=== PATIENT | male | born 1965 | race Caucasian/White ===

== ENCOUNTER 2016-04-22 01:22 | Inpatient (IN) | payer OTHER ==
[2016-04-22] VITALS (7 sets, daily range): BP systolic 82–119; BP diastolic 40–66
[~2016-04-22] VITALS: Ht 177.8 cm; Wt 129.3 kg
[~2016-04-22 01:22] MED LIST: ANTIVERT25 MG PO; ATORVASTATIN CA40 MG PO; AUGMENTIN 875-1 EACH PO; CHLORDIAZEPOXID25 M1 PO; CIPROFLOXACIN500 MG PO; COUMADIN 5 MG TA5 MG PO; DOCUSATE SODIU100 MG PO; FLEXERIL10 MG PO; FLUOXETINE HYDR40 MG PO; FOLIC ACID 1 MG PO; GLUCOSAMINE & C1 CAP PO; GOOD SENSE ASP325 MG PO; IBUPROFEN800 M1 PO; LISINOPRIL20 MG PO; LOPRESSOR 25MG25 MG PO; MEDROL DOSEPAK1 PAC PO; METOPROLOL TART50 MG PO; METRONIDAZOLE500 MG PO; NATURAL IRON65 MG PO; OMEPRAZOLE D/R20 MG PO; OXAZEPAM15 MG PO; OXYCONTIN20 MG PO; PERCOCET 325 MG1 TA2 PO; PERCOCET 325 MG1 TAB PO; TOPROL XL25 MG PO; TRANSDERM-SCOP1 EACH TOP; Theragran Vitamins PO; VALIUM 10 MG. T10 MG PO; VALIUM5 M2 PO; VICODIN5-300 PO; VITAB121000 PO; VITAMIN B1100 MG PO; ZOFRAN ODT4 M1 PO
--- NOTE | 2016-04-22 01:28 | ED GI/GU/ABDOMINAL COMPLAINT ---
History of Present Illness General Chief Complaint: Abdominal Pain/Flank Pain Stated Complaint: ABD PAIN Source: patient Exam Limitations: no limitations Vital Signs & Intake/Output Vital Signs & Intake/Output Vital Signs Date Time Temp Pulse Resp B/P Pulse O2 O2 Flow FiO2 Ox Delivery Rate 04/22 0359 100.5 96 20 177/107 95 Nasal 2.0L Cannula 04/22 0245 97 Room Air 04/22 0123 99.3 95 20 156/100 95 Room Air Allergies Coded Allergies: NO KNOWN ALLERGIES (08/27/12) Reconcile Medications Atorvastatin Calcium (Lipitor) 40 MG TAB 1 TAB PO 1700 HYPERLIPIDEMIA Chlordiazepoxide Hydrochlori (Chlordiazepoxide HCl) 25 MG CAP 1 CAP PO BID MENTAL HEALTH (Reported) Chondroitin Sulf/Glucosamine (Glucosamine & Chondroitin) 1 CAP CAP 1 CAP PO DAILY SUPPLEMENT (Reported) Cyanocobalamin (Vitamin B-12) (Unknown Strength) TAB (Unknown Dose) PO DAILY SUPPLEMENT (Reported) FERROUS SULFATE (IRON) (Unknown Strength) TAB (Unknown Dose) PO DAILY SUPPLEMENT (Reported) FLUOXETINE HCL (Fluoxetine Hydrochloride) 40 MG CAP 1 CAP PO DAILY MENTAL HEALTH (Reported) Folic Acid 1 MG TAB 1 MG PO DAILY SUPPLEMENT Lisinopril 20 MG TABLET 1 TAB PO DAILY BP (Reported) Metoprolol Succinate (Toprol XL) [address] 1 TAB PO DAILY BP (Reported) Ondansetron (Zofran Odt) 4 MG TAB.RAPDIS 1 TAB PO 4 TIMES/DAY PRN NAUSEA [Theragran Vitamins] 1 TAB PO DAILY Thiamine (Vitamin B1) 100 MG TAB 1 TAB PO DAILY SUPPLEMENT Triage Nurses Notes Reviewed? yes Onset: Gradual Duration: day(s):, getting worse Timing: recent history Quality/Severity: cramping Location: generalized abdomen Radiation: no radiation Activities at Onset: drinking alcohol Prior Abdominal Problems: none Modifying Factors: Improves With: rest. Worsens With: vomiting. Associated Symptoms: abdominal pain, weakness HPI: 50 yo gentleman h/o alcohol abuse, presents with increased abdominal girth, associated with abdominal pain for the past several days, getting worse today. He notes occasional emesis and mild nausea. "I lost my job, and so I've been doing nothing but drinking alcohol for the past several days." He notes no history of alcohol related seizures. He is otherwise well. Past History Travel History Traveled to [place] past 21 day No Medical History Any Pertinent Medical History? 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 No Review of Systems Review of Systems Constitutional: Reports: no symptoms. EENTM: Reports: no symptoms. Respiratory: Reports: no symptoms. Cardiovascular: Reports: no symptoms. GI: Reports: no symptoms. Genitourinary: Reports: no symptoms. Musculoskeletal: Reports: no symptoms. Skin: Reports: no symptoms. Neurological/Psychological: Reports: no symptoms. Hematologic/Endocrine: Reports: no symptoms. Immunologic/Allergic: Reports: no symptoms. All Other Systems: Reviewed and Negative Physical Exam Physical Exam General Appearance: well developed/nourished, mild distress, moderate distress Head: atraumatic, normal appearance Eyes: Bilateral: normal appearance, PERRL, EOMI. Ears, Nose, Throat, Mouth: hearing grossly normal Neck: normal inspection, supple, full range of motion, normal alignment Respiratory: normal breath sounds, chest non-tender, no respiratory distress, quiet respiration, lungs clear Cardiovascular: regular rate/rhythm Gastrointestinal: normal bowel sounds, soft, distended abdomen, no focal tenderness. Back: normal inspection, normal range of motion Extremities: normal range of motion Neurologic/Psych: no motor/sensory deficits, awake, alert, oriented x 3 Skin: intact, normal color, warm/dry Core Measures Severe Sepsis Present: Yes BC x2: Yes Lactic Acid x2: Yes IV ABX Broad Spectrum: Yes NS/LR Started: Yes Septic Shock Present: No Progress Differential Diagnosis: alcohol related liver failure vs cancer vs other. Plan of Care: Orders Procedure Date/time Status Nothing by Mouth 04/22 B Active Add-on Test (ER Only) 04/22 547 Active NGT 04/22 545 Active Ann, Insertion/Removal/Asses 04/22 545 Active CIWA 04/22 545 Active CULTURE,URINE 04/22 545 Active LACTIC ACID 04/22 0429 Active BLOOD CULTURE 04/22 0345 Active Add-on Test (ER Only) 04/22 015 Active AMMONIA LEVEL 04/22 015 Complete Saline Lock 04/22 015 Active Misc Message 04/22 154 Active Vital Signs 04/22 154 Active PARTIAL THROMBOPLASTIN TIME 04/22 015 Complete PROTHROMBIN TIME 04/22 154 Complete Code Status 04/22 154 Active Admit to inpatient 04/22 153 Active Intake & Output 04/22 130 Active TROPONIN LEVEL 04/22 130 Complete LACTIC ACID 04/22 130 Complete EKG 04/22 130 Active CULTURE,BODY FLUID 04/22 129 Active BODY FLUID TOTAL PROTEIN 04/22 129 Complete BODY FLUID CELL COUNT 04/22 129 Complete BODY FLUID ALBUMIN 04/22 129 Complete URINE DRUG SCREEN FOR ER ONLY 04/22 128 Active URINALYSIS 04/22 128 Active LIPASE 04/22 128 Complete HEPATIC FUNCTION PANEL 04/22 128 Complete ETHANOL 04/22 128 Complete CBC WITHOUT DIFFERENTIAL 04/22 128 Complete BASIC METABOLIC PANEL 04/22 128 Complete AMYLASE 04/22 128 Complete Current Medications Sig/Roberto Start time Last Medication Dose Stop Time Status Admin Dextrose 25 GM ONCE ONE 04/22 06 UNVr (Dextrose 50%) 04/22 06 Insulin Human Regular 10 UNITS ONCE ONE 04/22 06 UNVr (Novolin R Inj) 04/22 06 Cyanocobalamin/ 1 BAG ONCE ONE 04/22 0545 UNVr Thiamine/Pyridoxine 04/22 1344 (Vitamin in I.V.) Sodium Chloride 1,000 ML (Normal Saline 0.9%) Laboratory Tests 04/22/16 0235: Ammonia 24 04/22/16 0235: Anion Gap 15, Estimated GFR > 60, BUN/Creatinine Ratio 20.0, Glucose 148 H, Lactic Acid 3.3 H, Calcium 8.7, Total Bilirubin 4.2 H, Direct Bilirubin 2.5 H , AST 112 H, ALT 55, Alkaline Phosphatase 200 H, Troponin I 0.05, Total Protein 6.7, Albumin 3.2 L, Amylase 94, Lipase 405 H, PT 17.3 H, INR 1.66 H, APTT 34, Serum Alcohol 86.0 04/22/16 0200: Fluid WBC 9504 H, Fld Mesothelial Cells 4, Fld Total RBCs Counted 2156 H 04/22/16 0200: % Normal PMNs 96, Fluid Total Protein < 2.0, Fluid Albumin < 1.0 04/22/16 0130: Troponin I Cancelled, CBC w Diff NO MAN DIFF REQ, RBC 3.91 L, MCV 97.2 H, MCH 32.5 H, RDW 15.9 H, MPV 8.8, Gran % 82.7 H, Lymphocytes % 7.7 L, Monocytes % 9.4 H, Eosinophils % 0, Basophils % 0.2, PUBS MCHC 33.4, Absolute Granulocytes 6.4, Absolute Lymphocytes 0.6 L, Absolute Monocytes 0.7 H, Absolute Eosinophils 0, Absolute Basophils 0 Microbiology 04/22 545 URINE ROUT: Urine Culture - ORD 04/22 450 BLOOD: Blood Culture - RECD 04/22 435 BLOOD: Blood Culture - RECD 04/22 200 BODY FLUID: Body Fluid Culture - RECD 04/22 200 BODY FLUID: Gram Stain - RECD Diagnostic Imaging: Viewed by Me: Radiology Read, CT Scan. Discussed w/RAD: Radiology Read, CT Scan. Radiology Impression: abd/pelvic ct... free air and ascites noted... full report below CXR Impression: no acute abnormality, no infiltrates, normal size heart, normal mediastinum Initial ED EKG: normal axis, normal intervals, normal p-waves, normal QRS complex Comments: PATIENT: CECILIA BABCOCK PRESENT AGE: 50 PATIENT ACCOUNT NO: [id number] : 66 LOCATION: [facility] ORDERING PHYSICIAN: HOLLEY GROVER MD SERVICE DATE: 04/22/16 EXAM TYPE: CAT - CT ABD & PELVIS W/O IV CONTRAS EXAMINATION: CT ABDOMEN AND PELVIS WITHOUT CONTRAST CLINICAL INFORMATION: Abdominal pain. COMPARISON: 01/25/2014. TECHNIQUE: Contiguous axial thin section helical images of the abdomen and pelvis were performed without oral or IV contrast. The data set was reformatted in the coronal and sagittal planes and reviewed on an independent workstation. DLP: 1371 mGy-cm. FINDINGS: The visualized lung bases are clear. The visualized portions of the heart are unremarkable. The liver is of normal size and diffusely heterogeneous attenuation without focal lesions nor intrahepatic biliary ductal dilation. A normal gallbladder is identified. There is no wall thickening or discernible pericholecystic fluid. The spleen, pancreas, adrenal glands are unremarkable. Both kidneys are of normal size and attenuation without hydronephrosis or nephrolithiasis. There is a moderate amount of free fluid within the abdomen. There is neither mesenteric nor retroperitoneal lymphadenopathy. There is extensive pneumoperitoneum. There are numerous sigmoid diverticula without evidence of diverticulitis. Otherwise, unremarkable unopacified loops of small and large bowel are identified. There is a large amount of pelvic free fluid. The urinary bladder is unremarkable. There is neither pelvic nor inguinal lymphadenopathy. Bone windows: Neither sclerotic nor lytic bone lesions are identified. A left hip prosthesis is intact. IMPRESSION: Pneumoperitoneum. There is sigmoid diverticulosis without evidence of diverticulitis. An etiology for the pneumoperitoneum is not demonstrable. Moderate amount of ascites throughout the abdomen. Large amount of pelvic free fluid. Liver is diffusely heterogeneous attenuation without focal lesions demonstrable. DICTATED BY: RAFAEL BONE MD DATE/TIME DICTATED:04/22/16336 INDUSTRIAL CONTROLLER:STEF DATE/TIME TRANSCRIBED:04/22/16336 CONFIDENTIAL, DO NOT COPY WITHOUT APPROPRIATE AUTHORIZATION. <Electronically signed in Other Vendor System> SIGNED BY: RAFAEL BONE MD 04/22/16 0351 Departure Departure Disposition: HOME OR SELF CARE Condition: Stable Clinical Impression Primary Impression: Ascites Secondary Impressions: Abdominal pain, Bowel perforation, EtOH dependence, Hyperkalemia, Lactic acidosis, Liver failure, Peritonitis Referrals: LUIS ALFREDO BERNARD DO (PCP/Family) Referred to [facility] as new patient No Departure Forms: Customer Survey General Discharge Information Comments 04/22/16, 4:12am... free air noted in ct scan, along with elevated PMN's in ascitic fluid, consistent with SBP/perforation... call placed to general surgery. 04/22/16, 4:17am... discussed with dr. Murillo who will evaluate patient. 04/22/16, 5:53am... Dr. Dawn and Dr. Murillo evaluated patient... He will be medically optimized in ICU with medical co-management. Admission Note Spoke With: KHALIF MURILLO MD Documentation of Exam: Documentation of any treatments & extenuating circumstances including Concerns Regarding Discharge (functional status, medication knowledge or non-compliance, living conditions, etc.) that warrant an admission rather than observation: pt with intra-abdominal free air... likely perforation (?ulcer ?diverticuli)... given comorbidities (alcohol related liver disease, lactic acidosis, hyperkalemia), pt best served in ICU with medical co-management. Discussed with dr. Dawn who evaluated patient. Procedures Comments Comments: PROCEDURE: DIAGNOSTIC PARACENTESIS. pt signed consent form. Ascitic fluid localized by u/s. In sterile fashion, 5ml of 1% lidocaine infiltrated in right lower abdomen at mid axillarly line. 120cc of tim, slightly cloudy fluid extracted without problem. The patient tolerated the procedure well. There were no complications. Critical Care Note Critical Care Note Critical Care Time: 30-74 min
--- NOTE | 2016-04-22 01:29 | NUR ---
50YO MALE TO RM 6 VIA AMB FROM HOME W/CO ABD PAIN X 1 MONTH THAT WORSENED TONITE W/VOMITING AND DIARRHEA
--- NOTE | 2016-04-22 01:30 | NUR ---
DR GROVER AT BEDSIDE US DONE
--- NOTE | 2016-04-22 01:45 | NUR ---
LABS DRAWN AND SENT BY FABIENNE GAMBLE.
[2016-04-22 02:04] LABS: ABSOLUTE BASOPHIL COUNT 0 /CUMM (0.0-0.2); ABSOLUTE EOSINOPHIL COUNT 0 /CUMM (0.0-0.7); ABSOLUTE GRANULOCYTE CT 6.4 /CUMM (1.4-6.5); ABSOLUTE LYMPH COUNT 0.6 /CUMM (1.2-3.4); ABSOLUTE MONOCYTE COUNT 0.7 /CUMM (0.10-0.60); BASOPHIL % 0.2 % (0.0-2.0); EOSINOPHIL % 0 % (0-5); GRANULOCYTE % 82.7 % (42.2-75.2); MEAN CORPUSCULAR HGB 32.5 PG (27.0-31.0); MEAN CORPUSCULAR HGB CONC 33.4 G/DL (33.0-37.0); MEAN CORPUSCULAR VOLUME 97.2 FL (80.0-94.0); MEAN PLATELET VOLUME 8.8 FL (7.4-10.4); PLATELET COUNT 229 /CUMM (130-400); RBC DISTRIBUTION WIDTH 15.9 % (11.5-14.5); RED BLOOD CELL CT 3.91 /CUMM (4.70-6.10); WHITE BLOOD CELL COUNT 7.7 /CUMM (4.8-10.8)
--- NOTE | 2016-04-22 02:19 | NUR ---
EKG DONE AND SHOWN TO DR. GROVER.
--- NOTE | 2016-04-22 02:30 | NUR ---
STATTES PAIN IS RETURNING 03/03 DR GROVER AWARE.
--- NOTE | 2016-04-22 02:36 | NUR ---
IV DILAUDID GIVEN.
--- NOTE | 2016-04-22 02:48 | NUR ---
THIS RN ESTABLISHED AN IV LFA #20 LABS REDRAWN AND SENT
--- NOTE | 2016-04-22 02:52 | NUR ---
PT AWAITING CT SCAN AND XRAY
--- NOTE | 2016-04-22 02:55 | NUR ---
PT TO CT AND XRAY VIA STRETCHER
[2016-04-22 03:05] LABS: PT 17.3 SEC (9.4-12.5); PTT 34 SEC (25-37)
--- NOTE | 2016-04-22 03:30 | NUR ---
CRITICAL TEST RESULTS [id number] CECILIA BABCOCK 50 M TESTS AND RESULTS: LACTIC ACID = 3.3 Results received and read back by: JUDITH DOW Results received date and time: 04/22/16 0330 The following provider was notified of the results, and read the results back: DR GROVER Notified date and time: 04/22/16 at 0330
--- NOTE | 2016-04-22 03:40 | NUR ---
PT MEDICATED WITH 1MG DILAUDID FOR PAIN 10/10 PER EMAR. PT RESTING AND GIVEN PILLOW AND LIGHTS TURNED OFF FOR COMFORT.
--- NOTE | 2016-04-22 03:40 | RADIOLOGY REPORT ---
EXAMINATION: CHEST 1 VIEW CLINICAL INFORMATION: Dyspnea. COMPARISON: 06/24/2015. TECHNIQUE: An AP view of the chest is provided. FINDINGS: The cardiac silhouette is not enlarged. The mediastinal and hilar contours are unremarkable. There are neither pleural effusions nor pneumothoraces. There are no consolidations. There is evidence of prior right shoulder surgery. The osseous structures are otherwise unremarkable. IMPRESSION: No evidence for acute disease.
--- NOTE | 2016-04-22 03:40 | NUR ---
PT MEDICATED WITH 40MG PROTONIX PER EMAR.
--- NOTE | 2016-04-22 03:51 | CT SCAN REPORT ---
EXAMINATION: CT ABDOMEN AND PELVIS WITHOUT CONTRAST CLINICAL INFORMATION: Abdominal pain. COMPARISON: 01/25/2014. TECHNIQUE: Contiguous axial thin section helical images of the abdomen and pelvis were performed without oral or IV contrast. The data set was reformatted in the coronal and sagittal planes and reviewed on an independent workstation. DLP: 1371 mGy-cm. FINDINGS: The visualized lung bases are clear. The visualized portions of the heart are unremarkable. The liver is of normal size and diffusely heterogeneous attenuation without focal lesions nor intrahepatic biliary ductal dilation. A normal gallbladder is identified. There is no wall thickening or discernible pericholecystic fluid. The spleen, pancreas, adrenal glands are unremarkable. Both kidneys are of normal size and attenuation without hydronephrosis or nephrolithiasis. There is a moderate amount of free fluid within the abdomen. There is neither mesenteric nor retroperitoneal lymphadenopathy. There is extensive pneumoperitoneum. There are numerous sigmoid diverticula without evidence of diverticulitis. Otherwise, unremarkable unopacified loops of small and large bowel are identified. There is a large amount of pelvic free fluid. The urinary bladder is unremarkable. There is neither pelvic nor inguinal lymphadenopathy. Bone windows: Neither sclerotic nor lytic bone lesions are identified. A left hip prosthesis is intact. IMPRESSION: Pneumoperitoneum. There is sigmoid diverticulosis without evidence of diverticulitis. An etiology for the pneumoperitoneum is not demonstrable. Moderate amount of ascites throughout the abdomen. Large amount of pelvic free fluid. Liver is diffusely heterogeneous attenuation without focal lesions demonstrable.
--- NOTE | 2016-04-22 03:56 | History & Physical ---
General Information and HPI Allergies/Medications Allergies: Coded Allergies: NO KNOWN ALLERGIES (08/27/12) Home Med list Amoxicillin/Potassium Clav (Augmentin 875-125 Tablet) 1 EACH TABLET 1 TAB PO BID SINUSITIS Aspirin 325 MG TAB 1 TAB PO ONCE CHEST PAIN (Reported) Atorvastatin Calcium (Lipitor) 40 MG TAB 1 TAB PO 1700 HYPERLIPIDEMIA Chlordiazepoxide Hydrochlori (Chlordiazepoxide HCl) 25 MG CAP 1 CAP PO BID MENTAL HEALTH (Reported) Chondroitin Sulf/Glucosamine (Glucosamine & Chondroitin) 1 CAP CAP 1 CAP PO DAILY SUPPLEMENT (Reported) Cyanocobalamin (Vitamin B-12) (Unknown Strength) TAB (Unknown Dose) PO DAILY SUPPLEMENT (Reported) Diazepam (Valium) 5 MG TABLET 1 TAB PO TIDPRN PRN DIZZINESS FERROUS SULFATE (IRON) (Unknown Strength) TAB (Unknown Dose) PO DAILY SUPPLEMENT (Reported) FLUOXETINE HCL (Fluoxetine Hydrochloride) 40 MG CAP 1 CAP PO DAILY MENTAL HEALTH (Reported) Folic Acid 1 MG TAB 1 MG PO DAILY SUPPLEMENT Ibuprofen 800 MG TABLET 1 TAB PO TID PRN PAIN Lisinopril 20 MG TABLET 1 TAB PO DAILY BP (Reported) Meclizine (Antivert) 25 MG TABLET 1 TAB PO TID PRN DIZZINESS Metoprolol Succinate (Toprol XL) [address] 1 TAB PO DAILY BP (Reported) Ondansetron (Zofran Odt) 4 MG TAB.RAPDIS 1 TAB PO 4 TIMES/DAY PRN NAUSEA Ondansetron (Zofran Odt) 4 MG TAB.RAPDIS 1 TAB PO TID PRN NAUSEA Scopolamine Hydrobromide (Transderm-Scop) 1 EACH PATCH.TD.3 1 PAT TOP Q3D DIZZINESS apply to the hairless area behind 1 ear at least 4 hours before effect is required; reapply every 3 days as needed [Theragran Vitamins] 1 TAB PO DAILY Thiamine (Vitamin B1) 100 MG TAB 1 TAB PO DAILY SUPPLEMENT Past History Travel History Traveled to [place] past 21 day No Medical History Neurological: vertigo, NONE EENT: NONE Cardiovascular: hypertension, HYPERLIPIDEMIA Respiratory: NONE Gastrointestinal: GERD, DIVERTICULOSIS Hepatic: "FATTY LIVER" Renal: NONE Musculoskeletal: degen joint disease, BACK PAIN Psychiatric: alcohol dependence, anxiety Endocrine: NONE Blood Disorders: NONE Cancer(s): NONE 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
--- NOTE | 2016-04-22 05:19 | NUR ---
PT MEDICATED WITH 4MG ZOFRAN IV FOR NAUSEA. OR MARIANA BUCK IN FOR EVAL AND STATING THAT PT WAS VOMITTING. PT VOMITTED 400ML YELLOW BILE INTO BASIN.
--- NOTE | 2016-04-22 05:40 | NUR ---
SURG PA AND DR LOOMIS AT BEDSIDE. PT TO GO TO ICU.
--- NOTE | 2016-04-22 05:49 | Cons- CRCU ---
ROCÍO RICHMOND 04/22/16 0547: General Information and HPI Consulting Request Date of Consult: 04/22/16 Requested By: Dr. Amaya Reason for Consult: Alcoholic liver disease Coagulopathy Source of Information: patient Exam Limitations: no limitations History of Present Illness: He is now 50-year-old man with past medical history of hypertension, hyperlipidemia, alcohol abusepresented to ER with complaint of nausea, vomiting, abdominal pain, watery diarrhea and abdominal distention for one month. Patient has poor appetite and reportsfeeling dizzy. Denies any fever, chills, chest pain or discomfort, palpitations,any change in urinary habits. patient is also a heavy drinker. He drinks more than 1 pint of vodka every day. He was drinking more recently because of ongoing stress due to his job. he is a nonsmoker and denies illicit drug use. Allergies/Medications Allergies: Coded Allergies: NO KNOWN ALLERGIES (08/27/12) Home Med List: Atorvastatin Calcium 40 MG TABLET 1 TAB PO DAILY CHOLESTROL (Reported) Chondroitin Sulf/Glucosamine (Glucosamine & Chondroitin) 1 CAP CAP 1 CAP PO DAILY SUPPLEMENT (Reported) Fluoxetine HCl 40 MG CAPSULE 1 CAP PO QAM DEPRESSION (Reported) Folic Acid 1 MG TAB 1 MG PO DAILY SUPPLEMENT Lisinopril 20 MG TABLET 1 TAB PO DAILY BP (Reported) Meclizine HCl 25 MG TABLET 1 TAB PO TID DIZZINESS (Reported) Metoprolol Succinate (Toprol XL) [address] 1 TAB PO DAILY BP (Reported) Current Medications: Current Medications Sig/Roberto Start time Last Medication Dose Route Stop Time Status Admin Albumin Human 25 GM Q8 04/22 0700 AC 04/22 IV 0739 Ceftriaxone Sodium 1,000 MG DAILY 04/23 1000 AC IV Ceftriaxone Sodium 1,000 MG ONCE ONE 04/225 DC 04/22 IV 04/22 0446 0450 Ceftriaxone Sodium 0 .STK-MED ONE 04/22 0443 DC .ROUTE Ceftriaxone Sodium 1,000 MG ONCE ONE 04/22 345 DC IV 04/22 034 Ceftriaxone Sodium 1,000 MG ONCE ONE 04/22 345 DC IV 04/22 0346 Cyanocobalamin/ 1 BAG ONCE ONE 04/22 0545 AC 04/22 Thiamine/Pyridoxine IV 04/22 1344 0610 Sodium Chloride 1,000 ML Dextrose 25 GM ONCE ONE 04/22 06 DC 04/22 IV 04/22 0601 0610 Hydromorphone HCl 1 MG ONCE ONE 04/22 0330 DC 04/22 IV 04/22 0331 0339 Hydromorphone HCl 0 .STK-MED ONE 04/22 0330 DC .ROUTE Hydromorphone HCl 1 MG ONCE ONE 04/22 0230 DC 04/22 IV 04/22 0231 0236 Hydromorphone HCl 0 .STK-MED ONE 04/22 0223 DC .ROUTE Hydromorphone HCl 1 MG ONCE ONE 04/22 0145 DC 04/22 IV 04/22 0146 0137 Hydromorphone HCl 0 .STK-MED ONE 04/22 0134 DC .ROUTE Insulin Human Regular 10 UNITS ONCE ONE 04/22 0600 DC 04/22 IV 04/22 0601 0610 Lisinopril 20 MG DAILY 04/22 1000 CAN PO Lorazepam 0 Q1P PRN 04/22 0700 AC IV Metoprolol Succinate 25 MG DAILY 04/22 1000 AC PO Metoprolol Succinate 25 MG DAILY 04/22 1000 CAN PO Metronidazole 500 MG Q8H 04/22 1300 AC N/A 1 UNIT IV Metronidazole 500 MG ONCE ONE 04/22 0500 DC N/A 1 UNIT IV 04/22 0514 Metronidazole 500 MG ONCE ONE 04/22 0445 DC 04/22 N/A 1 UNIT IV 04/22 0544 0515 Metronidazole 500 MG ONCE ONE 04/22 0415 DC N/A 1 UNIT IV 04/22 0514 Morphine Sulfate 0 .STK-MED ONE 04/22 0745 DC .ROUTE Morphine Sulfate 2 MG Q3P PRN 04/22 0615 AC 04/22 IV 0748 Ondansetron HCl 4 MG Q8P PRN 04/22 0600 AC IV Ondansetron HCl 4 MG ONCE ONE 04/22 0515 DC 04/22 IV 04/22 0516 0519 Ondansetron HCl 0 .STK-MED ONE 04/22 0515 DC .ROUTE Ondansetron HCl 4 MG ONCE ONE 04/22 0145 DC IV 04/22 0146 Ondansetron HCl 0 .STK-MED ONE 04/22 0133 DC .ROUTE Pantoprazole Sodium 40 MG DAILY 04/22 1000 AC IV Pantoprazole Sodium 0 .STK-MED ONE 04/22 0327 DC IV Pantoprazole Sodium 40 MG ONCE ONE 04/22 0245 DC 04/22 IV 04/22 246 0339 Phytonadione 10 MG ONCE ONE 04/22 445 DC 04/22 IM 04/22 446 0450 Phytonadione 0 .STK-MED ONE 04/22 442 DC .ROUTE Sodium Chloride 1,000 ML BOLUS ONE 04/22 0600 DC IV 04/22 0659 Thiamine HCl 0 .STK-MED ONE 04/22 0557 DC .ROUTE Review of Systems Review of Systems Constitutional: Reports: see HPI. 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 Home Services at Home: None ETOH Use: heavy use Illicit Drug Use: denies illicit drug use Functional Ability ADLs Independent: dressing, eating, toileting, bathing. Ambulation: independent IADLs Independent: shopping, housework, finances, food prep, telephone, transportation , medication admin. Exam & Diagnostic Data Last 24 Hrs of Vital Signs/I&O Vital Signs Date Time Temp Pulse Resp B/P Pulse O2 O2 Flow FiO2 Ox Delivery Rate 04/22 0739 98.2 105 18 110/66 04/22 0637 99.0 112 18 105/58 93 Nasal 2.0L Cannula 04/22 0359 100.5 96 20 177/107 95 Nasal 2.0L Cannula 04/22 0245 97 Room Air 04/22 0123 99.3 95 20 156/100 95 Room Air Intake & Output 04/22 0800 04/22 0000 04/21 1600 Intake Total Output Total 300 Balance -300 Output, 300 Gastric Drainage Patient 300 lb Weight Physical Exam General Appearance: no apparent distress, alert, awake, obese, diaphoretic Head: atraumatic, normal appearance Respiratory: decreased air entry bilaterally Cardiovascular: tachycardia Gastrointestinal: absent bowel movements, firm, tense, distended, big scar in right lower quadrant, tenderness on palpation of whole abdomen. No guarding or rigidity Extremities: 2+ pitting edema bilaterally Last 48 Hrs of Labs/Garcia: Laboratory Tests 04/22/16 0736: Lactic Acid Pending 04/22/16 0605: Urine Opiates Screen 174.00, Methadone Screen < 40, Barbiturate Screen < 60, Ur Phencyclidine Scrn < 6.00, Amphetamines Screen < 100, U Benzodiazepines Scrn < 85, Urine Cocaine Screen < 50, Urine Cannabis Screen 5.90, Urinalysis LIGHT H, Urine Color ORANG H, Urine Clarity HAZY H, Urine pH 5.5, Ur Specific [place] > = 1.030, Urine Protein 100 H, Urine Ketones 15 H, Urine Nitrite POS H, Urine Bilirubin POS@ICTO H, Urine Urobilinogen 2.0 H, Ur Leukocyte Esterase NEG, Ur Microscopic SEDIMENT EXAMINED, Urine RBC 3-5, Urine WBC 3-5 H, Ur Epithelial Cells MOD H, Urine Crystals 1+ UR AC H, Granular Casts 1-3 H, Urine Mucus MANY H, Urine Hemoglobin NEG, Urine Glucose NEG 04/22/16 0235: Ammonia 24 04/22/16 0235: Anion Gap 15, Estimated GFR > 60, BUN/Creatinine Ratio 20.0, Glucose 148 H, Lactic Acid 3.3 H, Calcium 8.7, Total Bilirubin 4.2 H, Direct Bilirubin 2.5 H , AST 112 H, ALT 55, Alkaline Phosphatase 200 H, Troponin I 0.05, Total Protein 6.7, Albumin 3.2 L, Amylase 94, Lipase 405 H, Vitamin B12 Pending, Folate Pending, TSH 8.960 H, Free T4 1.85 H, PT 17.3 H, INR 1.66 H, APTT 34, Serum Alcohol 86.0 04/22/16 0200: Fluid WBC 9504 H, Fld Mesothelial Cells 4, Fld Total RBCs Counted 2156 H 04/22/16 0200: % Normal PMNs 96, Fluid Total Protein < 2.0, Fluid Albumin < 1.0 04/22/16 0130: Troponin I Cancelled, CBC w Diff NO MAN DIFF REQ, RBC 3.91 L, MCV 97.2 H, MCH 32.5 H, RDW 15.9 H, MPV 8.8, Gran % 82.7 H, Lymphocytes % 7.7 L, Monocytes % 9.4 H, Eosinophils % 0, Basophils % 0.2, PUBS MCHC 33.4, Absolute Granulocytes 6.4, Absolute Lymphocytes 0.6 L, Absolute Monocytes 0.7 H, Absolute Eosinophils 0, Absolute Basophils 0 Diagnostic Data EKG Results Sinus tachycardia with heart rate 95, no acute ST-T wave changes, QTc interval 462 CXR Results IMPRESSION: No evidence for acute disease. Other Results CT ABD & PELVIS W/O IV CONTRAST IMPRESSION: Pneumoperitoneum. There is sigmoid diverticulosis without evidence of diverticulitis. An etiology for the pneumoperitoneum is not demonstrable. Moderate amount of ascites throughout the abdomen. Large amount of pelvic free fluid. Liver is diffusely heterogeneous attenuation without focal lesions demonstrable. Assessment/Plan Impression/Plan: His 50-year-old man with past medical history of hypertension, hyperlipidemia, history of heavy alcohol abuse is going to be admitted to ICU for Problem list 1. Nausea, vomiting, abdominal pain secondary to sepsis due secondary peritonitis secondary to bowel perforation. Diagnostic paracentesis was done by Dr. Sequeira in ER and 120cc of tim colored, slightly cloudy fluid was drawn. Patient has history of alcohol abuse. Upon admission his bilirubin was 4.2 and AST 112 with alkaline phosphatase 200. Initial lactic acid was 3.3 and a second one was 5.3. Mahin's so sweet CT abdomen and pelvis showed pneumoperitoneum, moderate amount of ascites and liver was diffusely heterogeneous. Peritumoral for WBC count was 01/28/2004 with 96% neutrophils so SBP could be playing a role. Patient was already seen by surgery. Because of this alcohol liver disease and coagulopathy there was no plan for any surgical intervention right now. Conservative management per surgery. Patient was given vitamin K 10 mg IM Hepatitis panel. GI consult. Will hydrate patient. With IV hydration we will start patient on albumin. We will monitor his vitals very closely. Patient's blood pressure was high initially and then was on lower side later on. Will follow INR daily. If surgery is anticipating for any surgical intervention then we can bring INR down by giving him FFP's. 2. History of alcohol abuse: Patient has been drinking vodka almost daily and more frequently recently because of some ongoing stress related to his job. Serum alcohol is positive for alcohol. We will put patient on CIWA protocol and IV Ativan per CIWA. We will watch for DTs. Banana bag. 3. U tox positive for opiates, benzos and cannabis. Patient got IV Dilaudid in ER because of abdominal pain. 4. Coagulopathy. Patient's INR is 1.66 and PT 7.3 related to his alcohol liver disease. Patient got 10 mg of vitamin K IM 1 in ER. We will monitor INR daily. If there is question of urgent surgical intervention then we can bring INR down by giving him FFP's. 5. Macrocytic anemia secondary to alcohol liver disease. We will check vitamin D B12 and folate levels. 6. Hyponatremia and hyperkalemia We will monitor electrolytes closely 7. Elevated TSH and free T4. Consider and to consult. Alps for DVT prophylaxis NG tube Moderate to severe pain pathway Full code Consult Acknowledgment - Thank you for your consult request. TEENA VASQUEZ, [facility] 04/22/16 0642: Assessment/Plan Consult Acknowledgment - Thank you for your consult request. Attending MD Review Statement Attending Statement Attending MD Statement: examined this patient, discuss w/resident/PA/HUB LEAD, agreed w/resident/PA/HUB LEAD Attending Assessment/Plan: 50 yo M with h/o HTN, HLD, anxiety, avascular necrosis hip s/p hip replacement, alcohol dependence, pw gradually increasing abdominal girth and abdominal pain, associated with N/V and diarrhea since past 1-2 weeks. He continues to drink 2 pints of vodka daily, poor appetite. Reports urine being darker, but denies urinary frequency or dysuria. Denies fever or chills. He denies heartburn, hematemesis, melena or BRBPR. No h/o withdrawal seizures or DTs. He uses aspirin or ibuprofen PRN, no excessive use. Last admitted to [place] (May 2015) for chest pain, was to have outpatient stress test, which he did not. Last EGD/ colonoscopy (2008) showed grade 2 esophagitis/ gastritis and sigmoid diverticulosis. Vitals: Tmax 100.5, HR 90's, BP 177/107, sats 95% on 2L. Exam: Morbidly obese male, AAO, lethargic after receiving dilaudid, but responds to questions appropriately. No pallor or icterus. Dry mucous membranes. Chest b/l clear, Heart S1S2 regular, Abd grossly distended, tense, bowel sounds not appreciated, LE: b/l 2+ pitting edema. Unable to feel pedal pulses. Labs: macrocytic anemia, INR 1.66, Na 133, K 5.4, glucose 148, lactic acid 3.3, T. bili 4.2, D. bili 2.5, AST 112, alk phos 200, ammonia 24, trop 0.05, albumin 3.2, lipase 405, alcohol 86, CT abd/pelvis shows pneumoperitoneum, sigmoid diverticulosis, moderate amount of ascites, liver diffusely heterogeneous. CXR neg. EKG: SR. UA dirty, Utox trace benzo and cannabis. 1. Bowel perforation with peritonitis/ SBP. Unclear etiology of the perf ?ulcer ?diverticula. Plan conservative management per surgery, serial abdomen exam, NPO , NGT, panculture, IV ceftriaxone and flagyl. IV fluids, preferably IV albumin TID to avoid third spacing. Diagnostic paracentesis done in ER. Fluid analysis - shows 96% PMNs of 9504 WBCs - suggestive of SBP. Await fluid culture and gram stain results. Pain management and anti-emetics. 2. Alcoholic hepatitis, ascites with transaminitis and coagulopathy. Not encephalopathic. Maddrey's score is 29. No need for steroids. MELD 18. Check hepatitis panel, HIV, Tylenol and salicylate levels. Trend LFTs, reverse INR with vit K. CIWA protocol, banana bag, IV Ativan per CIWA. Obtain GI consult. Consider abdomen ultrasound to assess liver texture and amount of ascites. Hold statin. Avoid nephro and hepatotoxic meds. 3. Lactic acidosis. IV fluids and trend lactic acid. 4. Macrocytic anemia in the setting of alcohol use. Check TSH, free T4, B12 and folic acid. 5. Hyperkalemia. Received insulin-dextrose, please recheck. 6. HTN. Hold lisinopril. Continue metoprolol with holding parameters. 7. If persistent diarrhea, consider stool studies, Cdiff. GI ppx - IV PPI. DVT ppx Alps. Full code. Plan was discussed with Dr. Murillo and Surgery PA. TTS > 45 mins.
--- NOTE | 2016-04-22 06:20 | NUR ---
STERLING CATH AND NG INSERTED. AWAITING XR. CONNECTED TO LCWS--DRAINING QUESADA COLORED DRAINAGE.
[2016-04-22] MEDS ORDERED: LIPITOR40 M1 PO (06:23)
--- NOTE | 2016-04-22 06:27 | NUR ---
PT'S ASSIGNMENT 106
--- NOTE | 2016-04-22 06:28 | PN- General Surgery ---
Surgical Brief Attending Note Brief Attending Note: pt seen and examined and case discussed with Dr Sequeira, PA Staff and Medicine pt has advanced liver disease and continues to drink has known ascites but now has slow progression of increased absominal pain had peritoneal tap in ED by Dr Sequeira prior to CT scan which showed free air I suspect pt has a perferated ulcer and I think he is at extremely high risk for surgery I suspect he might develop DIC if we operate now and his K is 5.4 with INR 1.66 I feel it is more beneficial to hydrate, give antibiotics, NPO, NGT and type and screen as he may require FFP especially if we wind up having tp operate Either way I suspect he will develop DT's and he has a history he reports as "becoming shaky" when he stops drinking. appreciate ICU team support at this time I have also seen the peritoneal aspirate which is tim in color and not feculant and not bilious I have also explained the plan of care to Mr Garcia who understands and is presently Alert and oriented
--- NOTE | 2016-04-22 06:38 | NUR ---
LINENS CHANGED--PT VERY DIAPHORETIC.
[2016-04-22] MEDS ORDERED: MECLIZINE HCL25 MG PO (06:47)
[2016-04-22] MEDS ORDERED: FLUOXETINE HCL40 M1 PO (06:48)
[2016-04-22] MEDS ORDERED: ATORVASTATIN CA40 M1 PO (06:48)
--- NOTE | 2016-04-22 06:49 | NUR ---
EKG COMPLETED BY JEMMA CARPENTER. PT RESTING COMFORTABLY, LINEN CHANGED BECAUSE OF PTS SWEAT, ICE PACKS APPLIED TO BACK OF NECK FOR COMFORT. BP 105/58 HR ELEVATED, 112 SINUS TACHY ON EKG. CMAR COMPLETED BY THIS RN PER PT.
--- NOTE | 2016-04-22 07:01 | History & Physical Pre-Op ---
General Information and HPI Source of Information: patient Exam Limitations: no limitations History of Present Illness: 50 yo male with one month history of abdominal pain. For the past 2 weeks he has had increased pain and nausea and bloating which has worsened. He has not been able to tolerate food and has had a decreased appetite for the past week. He admits to drinking vodka greater than a pint a day for many years and admits to getting "shaky" when he doesn't drink for a period of a few hours. He has been able to tolerated vodka through this current situation and had numerous glasses of vodka yesterday. He has not had any food in greater than 24 hours. He has had diarrhea for the past week, including yesterday. +flatus Yesterday he had sever pain and nausea throughout the day and therefore presented to the ED. He had a peracentesis in the ED - cloudy yellow fluid which was sent for culture. A CT noted free air in the abdomen so surgery was notified. Currently his pain has improved but he is vomiting as I examine him. Vomitus is yellow liquid. Allergies/Medications Allergies: Coded Allergies: NO KNOWN ALLERGIES (08/27/12) Home Med list Atorvastatin Calcium 40 MG TABLET 1 TAB PO DAILY CHOLESTROL (Reported) Chondroitin Sulf/Glucosamine (Glucosamine & Chondroitin) 1 CAP CAP 1 CAP PO DAILY SUPPLEMENT (Reported) Fluoxetine HCl 40 MG CAPSULE 1 CAP PO QAM DEPRESSION (Reported) Folic Acid 1 MG TAB 1 MG PO DAILY SUPPLEMENT Lisinopril 20 MG TABLET 1 TAB PO DAILY BP (Reported) Meclizine HCl 25 MG TABLET 1 TAB PO TID DIZZINESS (Reported) Metoprolol Succinate (Toprol XL) [address] 1 TAB PO DAILY BP (Reported) Past History Medical History Neurological: vertigo, NONE EENT: NONE Cardiovascular: hypertension, HYPERLIPIDEMIA Respiratory: NONE Gastrointestinal: GERD, DIVERTICULOSIS Hepatic: "FATTY LIVER" Renal: NONE Musculoskeletal: degen joint disease, BACK PAIN Psychiatric: alcohol dependence, anxiety Endocrine: NONE Blood Disorders: NONE Cancer(s): NONE 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 Psychosocial History Where Do You Live? Home Who Do You Live With? self Services at Home None ETOH Use: heavy use, alcoholic, daily >1 pint vodka Functional Ability ADLs Independent: dressing, eating, toileting, bathing. Ambulation: independent IADLs Independent: shopping, housework, finances, food prep, telephone, transportation , medication admin. Employment History Employment: Unemployed Review of Systems Review of Systems: Abdominal pain Nausea Vomiting Distension Bilateral Lower ext edema - chronic Exam & Diagnostic Data Last 24 Hrs of Vital Signs/I&O Vital Signs Date Time Temp Pulse Resp B/P Pulse O2 O2 Flow FiO2 Ox Delivery Rate 04/22 0637 99.0 112 18 105/58 93 Nasal 2.0L Cannula 04/22 0359 100.5 96 20 177/107 95 Nasal 2.0L Cannula 04/22 0245 97 Room Air 04/22 0123 99.3 95 20 156/100 95 Room Air Intake & Output 04/22 0800 04/22 0000 04/21 1600 Intake Total Output Total 300 Balance -300 Output, 300 Gastric Drainage Patient 300 lb Weight Physical Exam: General: awake, alert, pain 2/10 currently, vomiting during exam - liquid yellow Chest: clear anteriorly bilaterally, RRR Abd: distended, hypoactive bowel sounds, tender to palpation throughout, RLQ appy scar Ext: 2+pitting edema BLE Last 24 Hrs of Labs/Garcia: Laboratory Tests 04/22/16 0605: Urine Opiates Screen 174.00, Methadone Screen < 40, Barbiturate Screen < 60, Ur Phencyclidine Scrn < 6.00, Amphetamines Screen < 100, U Benzodiazepines Scrn < 85, Urine Cocaine Screen < 50, Urine Cannabis Screen 5.90, Urinalysis LIGHT H, Urine Color ORANG H, Urine Clarity HAZY H, Urine pH 5.5, Ur Specific [place] > = 1.030, Urine Protein 100 H, Urine Ketones 15 H, Urine Nitrite POS H, Urine Bilirubin POS@ICTO H, Urine Urobilinogen 2.0 H, Ur Leukocyte Esterase NEG, Ur Microscopic SEDIMENT EXAMINED, Urine RBC 3-5, Urine WBC 3-5 H, Ur Epithelial Cells MOD H, Urine Crystals 1+ UR AC H, Granular Casts 1-3 H, Urine Mucus MANY H, Urine Hemoglobin NEG, Urine Glucose NEG 04/22/16 0235: Ammonia 24 04/22/16 0235: Anion Gap 15, Estimated GFR > 60, BUN/Creatinine Ratio 20.0, Glucose 148 H, Lactic Acid 3.3 H, Calcium 8.7, Total Bilirubin 4.2 H, Direct Bilirubin 2.5 H , AST 112 H, ALT 55, Alkaline Phosphatase 200 H, Troponin I 0.05, Total Protein 6.7, Albumin 3.2 L, Amylase 94, Lipase 405 H, Vitamin B12 Pending, Folate Pending, TSH Pending, Free T4 Pending, PT 17.3 H, INR 1.66 H, APTT 34, Serum Alcohol 86.0 04/22/16 0200: Fluid WBC 9504 H, Fld Mesothelial Cells 4, Fld Total RBCs Counted 2156 H 04/22/16 0200: % Normal PMNs 96, Fluid Total Protein < 2.0, Fluid Albumin < 1.0 04/22/16 0130: Troponin I Cancelled, CBC w Diff NO MAN DIFF REQ, RBC 3.91 L, MCV 97.2 H, MCH 32.5 H, RDW 15.9 H, MPV 8.8, Gran % 82.7 H, Lymphocytes % 7.7 L, Monocytes % 9.4 H, Eosinophils % 0, Basophils % 0.2, PUBS MCHC 33.4, Absolute Granulocytes 6.4, Absolute Lymphocytes 0.6 L, Absolute Monocytes 0.7 H, Absolute Eosinophils 0, Absolute Basophils 0 Microbiology 04/22 06 URINE ROUT: Urine Culture - RECD 04/22 0450 BLOOD: Blood Culture - RECD 04/22 0435 BLOOD: Blood Culture - RECD 04/22 020 BODY FLUID: Body Fluid Culture - RECD 04/22 200 BODY FLUID: Gram Stain - RECD Diagnostic Data EKG Results pending CXR Results unremarkable Other Results CT abd/pelvis Pneumoperitoneum. There is sigmoid diverticulosis without evidence of diverticulitis. An etiology for the pneumoperitoneum is not demonstrable. Moderate amount of ascites throughout the abdomen. Large amount of pelvic free fluid. Liver is diffusely heterogeneous attenuation without focal lesions demonstrable. Assessment/Plan Assessment/Plan: 50 yo male with alcoholic cirrhosis, ascites, ?perf bowel Pt seen by Dr Murillo pt seen and examined and case discussed with Dr Sequeira, PA Staff and Medicine pt has advanced liver disease and continues to drink has known ascites but now has slow progression of increased absominal pain had peritoneal tap in ED by Dr Sequeira prior to CT scan which showed free air I suspect pt has a perferated ulcer and I think he is at extremely high risk for surgery I suspect he might develop DIC if we operate now and his K is 5.4 with INR 1.66 I feel it is more beneficial to hydrate, give antibiotics, NPO, NGT and type and screen as he may require FFP especially if we wind up having tp operate Either way I suspect he will develop DT's and he has a history he reports as "becoming shaky" when he stops drinking. appreciate ICU team support at this time I have also seen the peritoneal aspirate which is tim in color and not feculant and not bilious I have also explained the plan of care to Mr Garcia who understands and is presently Alert and oriented As Ranked By This Provider Problem List: 1. Alcoholic hepatitis 2. Ascites 3. Abdominal pain 4. Liver failure 5. Bowel perforation 6. Lactic acidosis
--- NOTE | 2016-04-22 07:06 | Admission Core Measures ---
Admission Lab Results I reviewed the following labs: Laboratory Tests 04/22 04/22 04/22 0605 0235 0235 Chemistry Sodium (137 - 145 mmol/L) 133 L Potassium (3.5 - 5.1 mmol/L) 5.4 H Chloride (98 - 107 mmol/L) 93 L Carbon Dioxide (22 - 30 mmol/L) 25 Anion Gap (5 - 16) 15 BUN (9 - 20 mg/dL) 18 Creatinine (0.7 - 1.2 mg/dL) 0.9 Estimated GFR (>60 ml/min) > 60 BUN/Creatinine Ratio (7 - 25 %) 20.0 Glucose (65 - 99 mg/dL) 148 H Lactic Acid (0.7 - 2.1 mmol/L) 3.3 H Calcium (8.4 - 10.2 mg/dL) 8.7 Total Bilirubin (0.2 - 1.3 mg/dL) 4.2 H Direct Bilirubin (< 0.4 mg/dL) 2.5 H AST (17 - 59 U/L) 112 H ALT (21 - 72 U/L) 55 Alkaline Phosphatase (< 127 U/L) 200 H Ammonia (9 - 30 umol/L) 24 Troponin I (<0.11 ng/ml) 0.05 Total Protein (6.3 - 8.2 g/dL) 6.7 Albumin (3.5 - 5.0 g/dL) 3.2 L Amylase (30 - 110 U/L) 94 Lipase (23 - 300 U/L) 405 H Vitamin B12 (239 - 931 pg/mL) Pending Folate (2.76 - 20.0 ng/mL) Pending TSH (0.270 - 4.200 uIU/mL) Pending Free T4 (0.64 - 1.79 ng/dL) Pending Coagulation PT (9.4 - 12.5 SEC) 17.3 H INR (0.90 - 1.17) 1.66 H APTT (25 - 37 SEC) 34 Toxicology Urine Opiates Screen (>2000 NG/ML) 174.00 Methadone Screen (>300 NG/ML) < 40 Barbiturate Screen (>200 NG/ML) < 60 Ur Phencyclidine Scrn (>25 NG/ML) < 6.00 Amphetamines Screen (>1000 NG/ML) < 100 U Benzodiazepines Scrn (>200 NG/ML) < 85 Urine Cocaine Screen (>300 NG/ML) < 50 Urine Cannabis Screen (>50 NG/ML) 5.90 Serum Alcohol (<10 MG/DL) 86.0 Urines Urinalysis LIGHT H Urine Color (YEL,AMB,STR) ORANG H Urine Clarity (CLEAR) HAZY H Urine pH (5.0 - 8.0) 5.5 Ur Specific [place] (1.001 - 1.035) >= 1.030 Urine Protein (NEG,<30 MG/DL) 100 H Urine Ketones (NEG) 15 H Urine Nitrite (NEG) POS H Urine Bilirubin (NEG) POS@ICTO H Urine Urobilinogen (0.1 - 1.0 EU/dl) 2.0 H Ur Leukocyte Esterase (NEG) NEG Ur Microscopic SEDIMENT EXAMINED Urine RBC (0 - 5 /HPF) 3-5 Urine WBC (0 - 2 /HPF) 3-5 H Ur Epithelial Cells (NONE,FEW) MOD H Urine Crystals 1+ UR AC H Granular Casts (NONE /LPF) 1-3 H Urine Mucus (FEW,NONE) MANY H Urine Hemoglobin (NEG) NEG Urine Glucose (N MG/DL) NEG 04/22 04/22 04/22 0200 0200 0130 Chemistry Troponin I Cancelled Hematology CBC w Diff NO MAN DIFF REQ WBC (4.8 - 10.8 /CUMM) 7.7 RBC (4.70 - 6.10 /CUMM) 3.91 L Hgb (14.0 - 18.0 G/DL) 12.7 L Hct (42 - 52 %) 38.0 L MCV (80.0 - 94.0 FL) 97.2 H MCH (27.0 - 31.0 PG) 32.5 H RDW (11.5 - 14.5 %) 15.9 H Plt Count (130 - 400 /CUMM) 229 MPV (7.4 - 10.4 FL) 8.8 Gran % (42.2 - 75.2 %) 82.7 H Lymphocytes % (20.5 - 51.1 %) 7.7 L Monocytes % (1.7 - 9.3 %) 9.4 H Eosinophils % (0 - 5 %) 0 Basophils % (0.0 - 2.0 %) 0.2 % Normal PMNs (%) 96 PUBS MCHC (33.0 - 37.0 G/DL) 33.4 Immunology Absolute Granulocytes (1.4 - 6.5 /CUMM) 6.4 Absolute Lymphocytes (1.2 - 3.4 /CUMM) 0.6 L Absolute Monocytes (0.10 - 0.60 /CUMM) 0.7 H Absolute Eosinophils (0.0 - 0.7 /CUMM) 0 Absolute Basophils (0.0 - 0.2 /CUMM) 0 Other Body Source Fluid WBC (0 - 5 /CUMM) 9504 H Fld Mesothelial Cells (%) 4 Fld Total RBCs Counted (0 /CUMM) 2156 H Fluid Total Protein (g/dL) < 2.0 Fluid Albumin (g/dL) < 1.0 Admission Meds I reviewed the following Meds: Current Medications Sig/Roberto Start time Last Medication Dose Stop Time Status Admin Albumin Human 25 GM Q8 04/22 0700 AC (Plasbumin) Ceftriaxone Sodium 1,000 MG DAILY 04/23 1000 AC (Rocephin) Lisinopril 20 MG DAILY 04/22 1000 CAN (Prinivil) Lorazepam 0 Q1P PRN 04/22 0700 UNVr (Ativan) Metoprolol Succinate 25 MG DAILY 04/22 1000 AC (Toprol XL) Metoprolol Succinate 25 MG DAILY 04/22 1000 CAN (Toprol XL) Metronidazole 500 MG Q8H 04/22 1300 AC (Flagyl) N/A 1 UNIT (No Carrier) Morphine Sulfate 2 MG Q3P PRN 04/22 0615 AC (Morphine) Ondansetron HCl 4 MG Q8P PRN 04/22 0600 AC (Zofran) Pantoprazole Sodium 40 MG DAILY 04/22 1000 AC (Protonix) Acute Coronary Syndrome Inclusion Criteria ACS Diagnosis No Inpatient Core Measures LDL Reminder: If No, please order W/I first 24hr of stay Congestive Heart Failure Inclusion Criteria CHF Diagnosis No Cerebrovascular accident Inclusion Criteria CVA/TIA Diagnosis No Inpatient Core Measures Bedside Swallow Eval Reminder: If BSE failed, place ST order Antithrombotic Reminder: Order Antithrombotic Medication by end of day 2 Antithrombotic Reminder: Document Reason Antithrombotic Not ordered by end of day 2 AFIB/Flutter Reminder: If Present, add to problem list AFIB/Flutter Reminder: Order Anticoag Medication for pts with AFIB/Flutter Atherosclerosis Reminder: If Present, add to problem list LDL Reminder: If No, please order W/I first 24hr of stay PT Order Reminder: If No, please order Venous thromboembolism Inpatient Core Measures VTE Risk Factors: Acute medical illness, Age > 40, Obesity VTE Prophylaxis Ordered Inpt Mechanical (ALPS[facility]TEDS) [facility] prophylaxis d/t No contraindications No VTE Pharm Prophylaxis d/t Medical contraindication (High INR), Surgical contraindication Inclusion Criteria - Per Current guidelines, there needs to be overlap - treatment for the first 5 days of Warfarin therapy. - Parenteral Anticoagulation (IV or SC) needs to be - given along with Warfarin therapy. VTE Diagnosis No VTE Type NONE VTE Confirmed by (Test) NONE Problem List As ranked by this Provider includes Assessment & Plan 1. Bowel perforation 2. Liver failure 3. Peritonitis HOME MEDS Home Med List Atorvastatin Calcium 40 MG TABLET 1 TAB PO DAILY CHOLESTROL (Reported) Chondroitin Sulf/Glucosamine (Glucosamine & Chondroitin) 1 CAP CAP 1 CAP PO DAILY SUPPLEMENT (Reported) Fluoxetine HCl 40 MG CAPSULE 1 CAP PO QAM DEPRESSION (Reported) Folic Acid 1 MG TAB 1 MG PO DAILY SUPPLEMENT Lisinopril 20 MG TABLET 1 TAB PO DAILY BP (Reported) Meclizine HCl 25 MG TABLET 1 TAB PO TID DIZZINESS (Reported) Metoprolol Succinate (Toprol XL) [address] 1 TAB PO DAILY BP (Reported) Discontinued Medications Atorvastatin Calcium (Lipitor) 40 MG TAB 1 TAB PO 1700 HYPERLIPIDEMIA
--- NOTE | 2016-04-22 07:37 | NUR ---
ASSUMED CARE OF PT. LACTIC ACID REDRAWN AND SENT TO LAB. PT IS A&O X 3, NAD. PT SKIN IS DIAPHORETIC, STATES PAIN IS STARTING TO COME BACK. REPORT CALLED TO JOSE IN ICU.
--- NOTE | 2016-04-22 07:49 | NUR ---
PT MEDICATED WITH 2 MG MORPHINE IV.
--- NOTE | 2016-04-22 08:31 | NUR ---
0810: PT ARRIVED TO ICU FROM ER. A+OX3. ON 2L NC, LUNGS CLEAR. NSR-ST ON MONITOR. AFEBRILE. AUTO CUFF READING 82/65. DOPPLER B/P 90/0. DIAPHORETIC. ABD D/F NO BOWEL SOUNDS HEARD AT THIS TIME. NGT TO RIGHT NARE, 50CM, AWAITING CXR RESULTS FOR PLACEMENT. STERLING IN PLACE DRAINING ORANGE COLORED URINE. SKIN INTACT, BILATERAL +4 PEDAL EDEMA. IV #20 LF AND IV #20 LH (PRE HOSP). BANANA BAG RUNNING AT 125 ML/HR. NS RUNNING AT 125 ML/HR WELL TO HELP WITH B/P. PT COMPLAINING OF ABD PAIN 01/01. PT STATES HE DRINKS VODKA, WHEN ASKED HOW MUCH A DAY HE STATED "A LOT". LAST DRINK PER PT YESTERDAY, LAST BM YESTERDAY. PT HAS GLASSES AND CELL PHONE WITH HIM ALONG WITH 2 BAGS OF PERSONAL BELONGINGS CONTAINING HIS CLOTHES. ALPS PLACED. MRSA AND VRE SWABS SENT. WILL MONITOR.
--- NOTE | 2016-04-22 08:32 | RADIOLOGY REPORT ---
EXAMINATION: XR PORTABLE CHEST CLINICAL INFORMATION: NG tube placement. COMPARISON: 04/22/2016 at 3:07 AM TECHNIQUE: Portable view of the chest was obtained. FINDINGS: Large body habitus. The nasogastric tube appears to extend approximately 5 cm below the level of the diaphragm and into the proximal stomach. Consider advancing the tube further distally into the stomach. Lungs are hypoinflated and there is linear opacity suggestive of minimal atelectasis in the medial bases. Cardiac silhouette is mildly enlarged. No evidence of acute pulmonary consolidation, pleural effusion or pneumothorax. The right lateral costophrenic sulcus is excluded from the [id number]. The visualized bones are intact. IMPRESSION: The tip of the nasogastric tube is in the proximal stomach approximately 5 cm below the level of the diaphragm; consider advancing the tube further into the more distal stomach.
--- NOTE | 2016-04-22 09:04 | NUR ---
NGT ADVANCED TO 55CM AT THIS TIME. NGT TO LOW WALL SUCTION.
--- NOTE | 2016-04-22 09:10 | PN- CRCU ---
Subjective HPI/Critical Care Issues: I have personally seen and examined the patient. Briefly, the patient is a 50- year-old male with a history of hypertension, hyperlipidemia, alcohol abuse, GERD, diverticulosis, degenerative joint disease, avascular necrosis status post hip replacement and a fatty liver. The patient was admitted with increasing abdominal girth and abdominal pain, associated with nausea, vomiting and diarrhea for the past 1-2 weeks. He has been drinking 2 pints of vodka daily with a poor appetite. There is no report of fever or chills. There is no report of bleeding. Workup revealed possible bowel perforation with peritonitis /SBP. A diagnostic paracentesis was done in the ED. Surgery has evaluated the patient and recommended medical management at this time. The patient continues to have ongoing abdominal pain. He felt tremulous yesterday however he does not feel as if he is experiencing withdrawal symptoms at present. Objective Current Medications: Current Medications Sig/Roberto Start time Last Medication Dose Route Stop Time Status Admin Albumin Human 25 GM Q8 04/22 0700 AC 04/22 IV 0739 Ceftriaxone Sodium 1,000 MG DAILY 04/23 1000 AC IV Ceftriaxone Sodium 1,000 MG ONCE ONE 04/22 0445 DC 04/22 IV 04/22 0446 0450 Ceftriaxone Sodium 0 .STK-MED ONE 04/22 0443 DC .ROUTE Ceftriaxone Sodium 1,000 MG ONCE ONE 04/22 0345 DC IV 04/22 0346 Ceftriaxone Sodium 1,000 MG ONCE ONE 04/22 0345 DC IV 04/22 0346 Cyanocobalamin/ 1 BAG ONCE ONE 04/22 0545 AC 04/22 Thiamine/Pyridoxine IV 04/22 1344 0610 Sodium Chloride 1,000 ML Dextrose 25 GM ONCE ONE 04/22 0600 DC 04/22 IV 04/22 0601 0610 Hydromorphone HCl 1 MG ONCE ONE 04/22 0330 DC 04/22 IV 04/22 0331 0339 Hydromorphone HCl 0 .STK-MED ONE 04/22 0330 DC .ROUTE Hydromorphone HCl 1 MG ONCE ONE 04/22 0230 DC 04/22 IV 04/22 0231 0236 Hydromorphone HCl 0 .STK-MED ONE 04/22 0223 DC .ROUTE Hydromorphone HCl 1 MG ONCE ONE 04/22 0145 DC 04/22 IV 04/22 0146 0137 Hydromorphone HCl 0 .STK-MED ONE 04/22 0134 DC .ROUTE Insulin Human Regular 10 UNITS ONCE ONE 04/22 0600 DC 04/22 IV 04/22 0601 0610 Lisinopril 20 MG DAILY 04/22 1000 CAN PO Lorazepam 0 Q1P PRN 04/22 0700 AC IV Metoprolol Succinate 25 MG DAILY 04/22 1000 AC PO Metoprolol Succinate 25 MG DAILY 04/22 1000 CAN PO Metronidazole 500 MG Q8H 04/22 1300 AC N/A 1 UNIT IV Metronidazole 500 MG ONCE ONE 04/22 0500 DC N/A 1 UNIT IV 04/22 0514 Metronidazole 500 MG ONCE ONE 04/22 0445 DC 04/22 N/A 1 UNIT IV 04/22 0544 0515 Metronidazole 500 MG ONCE ONE 04/22 0415 DC N/A 1 UNIT IV 04/22 0514 Morphine Sulfate 0 .STK-MED ONE 04/22 0745 DC .ROUTE Morphine Sulfate 2 MG Q3P PRN 04/22 0615 AC 04/22 IV 0748 Ondansetron HCl 4 MG Q8P PRN 04/22 0600 AC IV Ondansetron HCl 4 MG ONCE ONE 04/22 0515 DC 04/22 IV 04/22 0516 0519 Ondansetron HCl 0 .STK-MED ONE 04/22 0515 DC .ROUTE Ondansetron HCl 4 MG ONCE ONE 04/22 0145 DC IV 04/22 0146 Ondansetron HCl 0 .STK-MED ONE 04/22 0133 DC .ROUTE Pantoprazole Sodium 40 MG DAILY 04/22 1000 AC IV Pantoprazole Sodium 0 .STK-MED ONE 04/22 0327 DC IV Pantoprazole Sodium 40 MG ONCE ONE 04/22 0245 DC 04/22 IV 04/22 0246 0339 Phytonadione 10 MG ONCE ONE 04/22 0445 DC 04/22 IM 04/22 0446 0450 Phytonadione 0 .STK-MED ONE 04/22 0442 DC .ROUTE Sodium Chloride 1,000 ML Q20H 04/22 0830 AC 04/22 IV 04/22 1629 0826 Sodium Chloride 1,000 ML BOLUS ONE 04/22 0600 DC IV 04/22 0659 Thiamine HCl 0 .STK-MED ONE 04/22 0557 DC .ROUTE Vital Signs & I&O Last 24 Hrs of Vitals and I&O: Vital Signs Date Time Temp Pulse Resp B/P Pulse O2 O2 Flow FiO2 Ox Delivery Rate 04/22 0739 98.2 105 18 110/66 04/22 0637 99.0 112 18 105/58 93 Nasal 2.0L Cannula 04/22 0359 100.5 96 20 177/107 95 Nasal 2.0L Cannula 04/22 0245 97 Room Air 04/22 0123 99.3 95 20 156/100 95 Room Air Intake & Output 04/22 1600 04/22 0800 04/22 0000 Intake Total Output Total 300 Balance -300 Output, 300 Gastric Drainage Patient 300 lb Weight Physical Exam General Appearance: no apparent distress, alert, awake, obese, diaphoretic Head: atraumatic, normal appearance Respiratory: decreased air entry bilaterally Cardiovascular: tachycardia Gastrointestinal: absent bowel movements, firm, tense, distended, big scar in right lower quadrant, tenderness on palpation of whole abdomen. No guarding or rigidity Extremities: 2+ pitting edema bilaterally Results Last 24 Hrs of Lab Results: Laboratory Tests 04/22/16 0736: Lactic Acid 5.3 H 04/22/16 0605: Urine Opiates Screen 174.00, Methadone Screen < 40, Barbiturate Screen < 60, Ur Phencyclidine Scrn < 6.00, Amphetamines Screen < 100, U Benzodiazepines Scrn < 85, Urine Cocaine Screen < 50, Urine Cannabis Screen 5.90, Urinalysis LIGHT H, Urine Color ORANG H, Urine Clarity HAZY H, Urine pH 5.5, Ur Specific [place] > = 1.030, Urine Protein 100 H, Urine Ketones 15 H, Urine Nitrite POS H, Urine Bilirubin POS@ICTO H, Urine Urobilinogen 2.0 H, Ur Leukocyte Esterase NEG, Ur Microscopic SEDIMENT EXAMINED, Urine RBC 3-5, Urine WBC 3-5 H, Ur Epithelial Cells MOD H, Urine Crystals 1+ UR AC H, Granular Casts 1-3 H, Urine Mucus MANY H, Urine Hemoglobin NEG, Urine Glucose NEG 04/22/16 0235: Ammonia 24 04/22/16 0235: Anion Gap 15, Estimated GFR > 60, BUN/Creatinine Ratio 20.0, Glucose 148 H, Lactic Acid 3.3 H, Calcium 8.7, Total Bilirubin 4.2 H, Direct Bilirubin 2.5 H , AST 112 H, ALT 55, Alkaline Phosphatase 200 H, Troponin I 0.05, Total Protein 6.7, Albumin 3.2 L, Amylase 94, Lipase 405 H, Vitamin B12 560, Folate 4.0, TSH 8.960 H, Free T4 1.85 H, PT 17.3 H, INR 1.66 H, APTT 34, Serum Alcohol 86.0 04/22/16 0200: Fluid WBC 9504 H, Fld Mesothelial Cells 4, Fld Total RBCs Counted 2156 H 04/22/16 0200: % Normal PMNs 96, Fluid Total Protein < 2.0, Fluid Albumin < 1.0 04/22/16 0130: Troponin I Cancelled, CBC w Diff NO MAN DIFF REQ, RBC 3.91 L, MCV 97.2 H, MCH 32.5 H, RDW 15.9 H, MPV 8.8, Gran % 82.7 H, Lymphocytes % 7.7 L, Monocytes % 9.4 H, Eosinophils % 0, Basophils % 0.2, PUBS MCHC 33.4, Absolute Granulocytes 6.4, Absolute Lymphocytes 0.6 L, Absolute Monocytes 0.7 H, Absolute Eosinophils 0, Absolute Basophils [address] Scan Findings: Pneumoperitoneum. There is sigmoid diverticulosis without evidence of diverticulitis. An etiology for the pneumoperitoneum is not demonstrable. Moderate amount of ascites throughout the abdomen. Large amount of pelvic free fluid. Liver is diffusely heterogeneous attenuation without focal lesions demonstrable. Impression/Plan Impression/Plan Impression/Plan: 1. Bowel perforation with peritonitis/SBP - etiology unclear. The patient's blood pressure has trended down and his lactate is trending up which remains concerning for progressive sepsis. 2. Possible SBP. 3. Alcoholic hepatitis with transaminitis and coagulopathy. 4. Lactic acidosis likely secondary to sepsis. 5. Macrocytic anemia in the setting of alcohol use. 6. Hypertension. 7. Diarrhea. 8. Alcohol dependence/abuse. 9. Elevated TSH, consistent with hypothyroidism. Recommendations: * Add on a magnesium level to labs. * NPO, NG tube placed. * Continue serial abdominal exams. * Check a stat abdominal x-ray to evaluate for progressive free air. * Follow up culture results. * Continue empiric ceftriaxone and Flagyl. * IV fluids increased to 125 ML per hour for borderline low blood pressure. * Monitor urine output/strict I's and O's. * Please consult GI regarding alcoholic hepatitis/chronic liver disease. * Monitor on CIWA protocol. * Continue multivitamin, thiamine and folate. * Continue vitamin K for 3 days. * Await repeat labs which are due to be done at noon. * Continue with pain control. * I have discussed the plan of care with surgery, noting that the patient's blood pressure trend is lower, and his lactic acid is rising. They will come and reevaluate the patient. * DVT prophylaxis with Venodyne's due to coagulopathy. No subcutaneous heparin. * Please consult ID if the patient spikes a fever or continues to deteriorate. * The patient is critically ill and will need very close monitoring. I discussed the plan of care with the housestaff in detail and asked him to contact me should the patient's condition change or deteriorate. TTS 70
--- NOTE | 2016-04-22 09:52 | NUR ---
REPEAT LABS DRAWN, CBC, ICU BUNDLE, LACTIC, PT/INR. HEPATITS, HIV PANEL. ABD BEING DONE AT THIS TIME. DOPPLER B/P 104/0 AT THIS TIME. SURGICAL TEAM AT BEDSIDE.
--- NOTE | 2016-04-22 09:58 | RADIOLOGY REPORT ---
EXAMINATION: PORTABLE CHEST X-RAYS CLINICAL INFORMATION: Perforation shock, hypotension COMPARISON: 04/22/2016 at 3:07 AM. TECHNIQUE: Serial portable chest x-rays. The first study from 6:54 AM shows an NG tube entering the stomach. The proximal port may been the level of the distal esophagus. Motion degrades imaging of the underlying lung nathan however grossly clear. The second image submitted is from 9:37 AM. The NG tube is less well seen on this exam. The lung nathan are hypoexpanded. No obvious dense infiltrate. Impression: 2 films are submitted. The last film shown demonstrates very low lung volumes. No convincing evidence for an acute process in the lung nathan. NG tube is poorly seen on the latest study but from 6:45 AM study appears to be crossing diaphragm into the stomach. The proximal port however may be at the level of the GE junction
[2016-04-22 10:08] LABS: ABSOLUTE BASOPHIL COUNT 0 /CUMM (0.0-0.2); ABSOLUTE EOSINOPHIL COUNT 0 /CUMM (0.0-0.7); ABSOLUTE GRANULOCYTE CT 10.3 /CUMM (1.4-6.5); ABSOLUTE LYMPH COUNT 0.3 /CUMM (1.2-3.4); ABSOLUTE MONOCYTE COUNT 1.1 /CUMM (0.10-0.60); EOSINOPHIL % 0 % (0-5); MEAN CORPUSCULAR VOLUME 99.5 FL (80.0-94.0)
[2016-04-22 10:12] LABS: BASOPHIL % 0 % (0.0-2.0); GRANULOCYTE % 88.4 % (42.2-75.2); HEMATOCRIT 34.9 % (42-52); MEAN CORPUSCULAR HGB 32.4 PG (27.0-31.0); MEAN CORPUSCULAR HGB CONC 32.6 G/DL (33.0-37.0); MEAN PLATELET VOLUME 7.9 FL (7.4-10.4); PLATELET COUNT 243 /CUMM (130-400); RBC DISTRIBUTION WIDTH 15.6 % (11.5-14.5); RED BLOOD CELL CT 3.51 /CUMM (4.70-6.10)
[2016-04-22 10:14] LABS: WHITE BLOOD CELL COUNT 11.6 /CUMM (4.8-10.8)
[2016-04-22 10:19] LABS: PT 17.6 SEC (9.4-12.5)
--- NOTE | 2016-04-22 10:32 | NUR ---
YELLOW CHAIN WITH 3 CHARMS REMOVED, PLACED IN BIOHAZARD BAG AT THIS TIME, LABELED WITH HIS NAME AND ROOM NUMBER. ANESTHESIA AT BEDSIDE TO INTUBATE AT THIS TIME, SURGICAL TEAM WELL TO PLACE CENTRAL LINE ONCE INTUBATED, ALBUMIN INFUSING, 500 ML NS BOLUS RUNNING AT THIS TIME. 1G MAG ADMINISTERED. AWAITING FFP FROM BLOOD BANK. LEVO REMAINS AT 5MCG/MIN
--- NOTE | 2016-04-22 10:40 | NUR ---
PT RESP FAILURE, PRE OP, INTUBATED FOR RESP MANAGEMENT, LOW BP ALSO. PT INTUBATED AT BEDSIDE BY ANESTHESIA WITH SEDATION WITH GLIDE SCOPE. NO COMPLICATIONS. #8 ETT ON RT AT 22CM. B/S EQUAL, CO2 DETECTOR -GOOD COLOR CHANGE YELLOW/PURPLE. TO VENT, PARAMETERS V/O DR [id number], RR-28 100%FIO2, 5 PEEP. PT WAS BAGGED WITH 100% O2 BY ANESTH. PRIOR TO INTUBATION [id number].
--- NOTE | 2016-04-22 11:28 | Event Note ---
Event Note Event Note: I spoke to patient's mother to update her about patient current situation and the plan of care. She is a nurse and she is aware of his alcohol dependance. She agreed with intubation, central line placement and surgical option. Offnot, his mother stated that he recently has family issue ( his ), became deprssed afterward.
--- NOTE | 2016-04-22 11:35 | Event Note ---
Event Note Event Note: patient is a 50 y/o Male, with a significant past medical history of hypertension, hyperlipidemia, GERD, diverticulosis, degenerative joint disease, a vascular necrosis status post hip replacement, fatty liver disease, alcohol abuse presented with chronic alcohol abuse, nausea, vomting, abd distension and pain which got worse so he presented to ED on 04/21/2016. On Evaluation CT scan showed pneumoperitoneum, moderate ascites.On examination the abdomen was distended and tender to palpation , so diagnostic paracentesis was done which showed WBC 9504, RBC 2156. Because of the perforation, It seems that patient developed the secondary bacterial peritonitis. We took surgical consultation. The next couple of hours patient went into septicemia and shock. So he was given IV fluids and prophylactic antibiotics including ceftriaxone metronidazole and vancomycin. We catheterized the patient. Despite of these measures his blood pressure going down , so we took surgical consultation and plan for emergent surgery. Meantime, we intubated the patient and put him on mechanical ventilation(assist control mode, TV-500, respiratory rate 28, PEEP 5, FiO2 100%), triple-lumen catheter was placed in the right side of jugular vein. Patients blood pressure was continuosly going down, so we started him on Levothroid/vasopressin. We also started him on fentanyl and propofol drip. The culture of the ascites fluid came back positive for gram-negative. We took the consult from infectious disease specialist/Abdullahi Osuna MD. He advised to change ceftriaxone to ceftazidime and advised to wait for sensitivities report. Patient went to surgery and came back at 4 o'clock in ICU. In postop, His blood pressure was 119/62. * We will follow surgery notes. * We will follow GI recommendation * A watch for in the vital signs regularly * Strick intake output charting * Continue IV fluids * Continue vasodepressors
--- NOTE | 2016-04-22 11:50 | Proc Note Internal Medicine ---
Medicine Procedure Procedure Date: 04/22/16 Medical Procedure(s): central venous cath place Pre-Operative Diagnosis: septic shock Post-Operative Diagnosis: same Estimated Blood Loss: scant Anesthesia: general endotracheal tube Procedure Findings: consent obtained time out taken in usual sterile fashion under ultrasound guidance using seldinger technique a triple lumen catheter was inserted into the right IJ vein. non pulsatile dark venous blood flow. catheter sutured and cxr ordered no complications cxr pending Additional critical care time 35 min
--- NOTE | 2016-04-22 11:57 | RADIOLOGY REPORT ---
EXAMINATION: XR PORTABLE CHEST CLINICAL INFORMATION: 50-year-old male with septicemia. Status post internal jugular line placement. COMPARISON: Chest and abdominal radiograph done on 04/22/2016. TECHNIQUE: Portable AP semierect 65 degrees view of the chest was obtained. FINDINGS: The tip of the right internal jugular venous catheter is projecting at the level of the cavoatrial junction. The tip of the endotracheal tube is located approximately 3.2 cm above the level of the ching. The tip of the enteric tube is not visualized due to underexposure however was well-positioned on the prior KUB done on 04/22/2016 at 9:37 AM. Nonspecific patchy airspace opacities are noted at left suprahilar, perihilar and left lung base. The cardiac mediastinal silhouette is mildly enlarged. IMPRESSION: 1. The tip of the right internal jugular venous catheter is projecting at the level of the cavoatrial junction. 2. The tip of the endotracheal tube is located approximately 3.2 cm above the level of the ching. 3. Nonspecific patchy airspace disease at left lung base and left perihilar, suprahilar region.
--- NOTE | 2016-04-22 12:52 | Event Note ---
Event Note Event Note: I have seen and reevaluated the patient. The patient is now intubated, on mechanical ventilation. A triple lumen catheter was placed in the right IJ. He is on Levophed and vasopressin to support his blood pressure. He also remains on a fentanyl drip and propofol. He is anuric. The patient's lab work was reviewed, noting that his creatinine is now 1.7, potassium 5.9, lactic acid 4.1, magnesium 1.4, total bilirubin 4.8, WBC 11.6, hemoglobin 11.4, bands 13, and an INR of 1.67. The patient has received 2 units of fresh frozen plasma. He continues to be volume resuscitated however his CVP is in the 30s. He has been given a dose of empiric vancomycin. The patient's culture from the abdominal paracentesis is positive for gram-negative rods. He remains on ceftriaxone and Flagyl. Repeat ABG is pending. The patient currently is awaiting to be taken to the OR. The patient remains critically ill and has potential for poor prognosis. The patient's mother has been updated by the house staff. TTS 20
--- NOTE | 2016-04-22 15:14 | Cons- Infect Disease ---
General Information and HPI Consulting Request Date of Consult: 04/22/16 Requested By: WILLIAM VASQUEZ,KHALIF De Jesus Reason for Consult: Peritonitis Source of Information: old records Exam Limitations: unable to give history, not alert/orientated History of Present Illness: This is a 50-year-old man with a history of heavy alcohol abuse and gastritis admitted early this morning after presenting to the emergency room with increasing abdominal pain, vomiting and diarrhea over the past several weeks prior to admission. On arrival to the emergency room he was febrile to 100.5. Laboratory data revealed a white blood cell count of 8000, BUN/creatinine 18 and 0.9, lactic acid 3.3, lipase 405, bilirubin 4.2, alk phosphatase 200, AST/ALT 112 and 55. Serum alcohol level 86. Urine tox screen positive for opiates/ morphine and cannabis. INR 1.66. CT of the abdomen and pelvis revealed pneumoperitoneum, sigmoid diverticulitis without evidence of diverticulitis and a moderate amount of ascites. Chest x-ray was negative. He underwent paracentesis in the emergency room, revealing a white blood cell count of 9504, with 96 polys, and a red blood cell count of 2156. He was begun on Ceftriaxone and Flagyl and admitted to the ICU. Vancomycin has been added to his regimen. This afternoon the ascitic fluid was found to be positive for gram-negative rods , noted on a gram stain of the blood culture bottle in which the ascitic fluid was placed. He is to be taken to the OR imminently. Allergies/Medications Allergies: Coded Allergies: NO KNOWN ALLERGIES (08/27/12) Home Med List: Atorvastatin Calcium 40 MG TABLET 1 TAB PO DAILY CHOLESTROL (Reported) Chondroitin Sulf/Glucosamine (Glucosamine & Chondroitin) 1 CAP CAP 1 CAP PO DAILY SUPPLEMENT (Reported) Fluoxetine HCl 40 MG CAPSULE 1 CAP PO QAM DEPRESSION (Reported) Folic Acid 1 MG TAB 1 MG PO DAILY SUPPLEMENT Lisinopril 20 MG TABLET 1 TAB PO DAILY BP (Reported) Meclizine HCl 25 MG TABLET 1 TAB PO TID DIZZINESS (Reported) Metoprolol Succinate (Toprol XL) [address] 1 TAB PO DAILY BP (Reported) Past History Travel History Traveled to [place] past 21 day No Medical History Blood Transfusion Hx: No Neurological: vertigo EENT: NONE Cardiovascular: hypertension, HYPERLIPIDEMIA Respiratory: NONE Gastrointestinal: GERD, DIVERTICULOSIS Hepatic: "FATTY LIVER" Renal: NONE Musculoskeletal: chronic back pain, degen joint disease Psychiatric: alcohol dependence, anxiety Endocrine: NONE Blood Disorders: NONE Cancer(s): NONE 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 Psychosocial History Where Do You Live? Home Who Do You Live With? self Services at Home: None Smoking Status: Never Smoked ETOH Use: heavy use, alcoholic, daily >1 pint vodka Illicit Drug Use: denies illicit drug use Functional Ability ADLs Independent: dressing, eating, toileting, bathing. Ambulation: independent IADLs Independent: shopping, housework, finances, food prep, telephone, transportation , medication admin. Employment History Employment: Unemployed Review of Systems Comments unobtainable Exam & Diagnostic Data Last 24 Hrs of Vital Signs/I&O Vital Signs Date Time Temp Pulse Resp B/P Pulse O2 O2 Flow FiO2 Ox Delivery Rate 04/22 1401 Ventilator 80% 04/22 1320 80 04/22 1040 100 04/22 1002 100 95/56 04/22 0846 97.6 101 16 82/65 04/22 0846 95 Nasal 2.0L Cannula 04/22 0846 97.6 101 16 82/65 95 Nasal 2.0L Cannula 04/22 0739 98.2 105 18 110/66 04/22 0637 99.0 112 18 105/58 93 Nasal 2.0L Cannula 04/22 0359 100.5 96 20 177/107 95 Nasal 2.0L Cannula 04/22 0245 97 Room Air 04/22 0123 99.3 95 20 156/100 95 Room Air Intake & Output 04/22 1600 04/22 0800 04/22 0000 Intake Total Output Total 300 Balance -300 Output, 300 Gastric Drainage Patient 300 lb 300 lb Weight Physical Exam Other Physical Findings: He is intubated and sedated and unresponsive. MAXIMUM TEMPERATURE 100.5. Skin reveals no rash. HEENT exam is negative. Neck is supple with no adenopathy; right IJ triple-lumen catheter in place. Lungs are clear. Heart regular rhythm with no murmur. Abdomen is obese, distended, with no bowel sounds audible. Back no CVA tenderness. Extremities 2+ edema both lower extremities. Neuro unable to evaluate, but with no obvious focality. Ann catheter is in place. Last 24 Hours of Lab Results: Laboratory Tests 04/22 04/22 04/22 04/22 1305 1200 1138 1000 Blood Gas pH (7.35 - 7.45 PH) 7.46 H 7.28 *L pCO2 (35 - 45 TORR) 27 L 49 H pO2 (80 - 100 TORR) 160 H 91 HCO3 (21 - 28 MEQ/L) 19 L 22 ABG O2 Sat (Measured) (>96.0 %) 98.0 94.0 L Carboxyhemoglobin (1.5 - 5.0 %) 0.6 L 1.2 L O2 Concentration % 80% 3L Respiration Rate (BPM) 28 O2 Delivery Method VENT NC Vent Mode AC Expiratory Pressure (CMH2O/P) 5 Tidal Volume (CC) 550 Chemistry Sodium Cancelled Potassium Cancelled Chloride Cancelled Carbon Dioxide Cancelled Anion Gap Cancelled BUN Cancelled Creatinine Cancelled Glucose Cancelled Calcium Cancelled Phosphorus Cancelled Magnesium Cancelled Total Bilirubin Cancelled AST Cancelled ALT Cancelled Albumin Cancelled Hematology CBC w Diff Cancelled Cancelled WBC Cancelled Cancelled RBC Cancelled Cancelled Hgb Cancelled Cancelled Hct Cancelled Cancelled MCV Cancelled Cancelled MCH Cancelled Cancelled RDW Cancelled Cancelled Plt Count Cancelled Cancelled MPV Cancelled Cancelled PUBS MCHC Cancelled Cancelled Miscellaneous Phlebotomy Draw Site LEFT RADIAL LEFT RADIAL 04/22 04/22 04/22 0952 0952 0736 Chemistry Sodium (137 - 145 mmol/L) 135 L 135 L Potassium (3.5 - 5.1 mmol/L) 5.9 H 5.8 H Chloride (98 - 107 mmol/L) 96 L 94 L Carbon Dioxide (22 - 30 mmol/L) 26 26 Anion Gap (5 - 16) 14 14 BUN (9 - 20 mg/dL) 18 19 Creatinine (0.7 - 1.2 mg/dL) 1.7 H 1.7 H Estimated GFR (>60 ml/min) 43 L 43 L BUN/Creatinine Ratio (7 - 25 %) 11.2 Glucose (65 - 99 mg/dL) 114 H Lactic Acid (0.7 - 2.1 mmol/L) 4.1 H 5.3 H Calcium (8.4 - 10.2 mg/dL) 8.2 L Phosphorus (2.5 - 4.5 mg/dL) 5.5 H Magnesium (1.6 - 2.3 mg/dL) 1.4 L Total Bilirubin (0.2 - 1.3 mg/dL) 4.8 H 4.7 H Direct Bilirubin (< 0.4 mg/dL) 3.0 H AST (17 - 59 U/L) 94 H 95 H ALT (21 - 72 U/L) 39 48 Alkaline Phosphatase (< 127 U/L) 152 H Total Protein (6.3 - 8.2 g/dL) 6.5 Albumin (3.5 - 5.0 g/dL) 3.2 L 3.2 L Coagulation PT (9.4 - 12.5 SEC) 17.6 H INR (0.90 - 1.17) 1.67 H Hematology CBC w Diff MAN DIFF ORDERED WBC (4.8 - 10.8 /CUMM) 11.6 H RBC (4.70 - 6.10 /CUMM) 3.51 L Hgb (14.0 - 18.0 G/DL) 11.4 L Hct (42 - 52 %) 34.9 L MCV (80.0 - 94.0 FL) 99.5 H MCH (27.0 - 31.0 PG) 32.4 H RDW (11.5 - 14.5 %) 15.6 H Plt Count (130 - 400 /CUMM) 243 MPV (7.4 - 10.4 FL) 7.9 Gran % (42.2 - 75.2 %) 88.4 H Lymphocytes % (20.5 - 51.1 %) 2.4 L Monocytes % (1.7 - 9.3 %) 9.2 Eosinophils % (0 - 5 %) 0 Basophils % (0.0 - 2.0 %) 0 L Segmented Neutrophils (42.2 - 75.2 %) 77 H Band Neutrophils (0.0 - 5.0 %) 13 H Lymphocytes (20.5 - 51.1 %) 2 L Monocytes (1.7 - 9.3 %) 8 Platelet Estimate (ADEQUATE) ADEQUATE Normocytic RBCs VERIFIED Normochromic RBCs VERIFIED PUBS MCHC (33.0 - 37.0 G/DL) 32.6 L Immunology Absolute Granulocytes (1.4 - 6.5 /CUMM) 10.3 H Absolute Lymphocytes (1.2 - 3.4 /CUMM) 0.3 L Absolute Monocytes (0.10 - 0.60 /CUMM) 1.1 H Absolute Eosinophils (0.0 - 0.7 /CUMM) 0 Absolute Basophils (0.0 - 0.2 /CUMM) 0 Serology Hepatitis A IgM Ab (NONREACTIVE) NONREACTIVE Hep Bs Antigen (NONREACTIVE) NONREACTIVE Hep B Core IgM Ab Conf (NONREACTIVE) NONREACTIVE Hepatitis C Antibody (NONREACTIVE) NONREACTIVE HIV 1&2 Ab Western Blot (NONREACTIVE) NONREACTIVE Toxicology Acetaminophen (10.0 - 30.0 ug/mL) < 10.0 L 04/22 04/22 04/22 0605 0235 0235 Chemistry Sodium (137 - 145 mmol/L) 133 L Potassium (3.5 - 5.1 mmol/L) 5.4 H Chloride (98 - 107 mmol/L) 93 L Carbon Dioxide (22 - 30 mmol/L) 25 Anion Gap (5 - 16) 15 BUN (9 - 20 mg/dL) 18 Creatinine (0.7 - 1.2 mg/dL) 0.9 Estimated GFR (>60 ml/min) > 60 BUN/Creatinine Ratio (7 - 25 %) 20.0 Glucose (65 - 99 mg/dL) 148 H Lactic Acid (0.7 - 2.1 mmol/L) 3.3 H Calcium (8.4 - 10.2 mg/dL) 8.7 Magnesium (1.6 - 2.3 mg/dL) 1.3 L Total Bilirubin (0.2 - 1.3 mg/dL) 4.2 H Direct Bilirubin (< 0.4 mg/dL) 2.5 H AST (17 - 59 U/L) 112 H ALT (21 - 72 U/L) 55 Alkaline Phosphatase (< 127 U/L) 200 H Ammonia (9 - 30 umol/L) 24 Troponin I (<0.11 ng/ml) 0.05 Total Protein (6.3 - 8.2 g/dL) 6.7 Albumin (3.5 - 5.0 g/dL) 3.2 L Amylase (30 - 110 U/L) 94 Lipase (23 - 300 U/L) 405 H Vitamin B12 (239 - 931 pg/mL) 560 Folate (2.76 - 20.0 ng/mL) 4.0 TSH (0.270 - 4.200 uIU/mL) 8.960 H Free T4 (0.64 - 1.79 ng/dL) 1.85 H Coagulation PT (9.4 - 12.5 SEC) 17.3 H INR (0.90 - 1.17) 1.66 H APTT (25 - 37 SEC) 34 Toxicology Urine Opiates Screen (>2000 NG/ML) 174.00 Methadone Screen (>300 NG/ML) < 40 Barbiturate Screen (>200 NG/ML) < 60 Ur Phencyclidine Scrn (>25 NG/ML) < 6.00 Amphetamines Screen (>1000 NG/ML) < 100 U Benzodiazepines Scrn (>200 NG/ML) < 85 Urine Cocaine Screen (>300 NG/ML) < 50 Urine Cannabis Screen (>50 NG/ML) 5.90 Serum Alcohol (<10 MG/DL) 86.0 Urines Urinalysis LIGHT H Urine Color (YEL,AMB,STR) ORANG H Urine Clarity (CLEAR) HAZY H Urine pH (5.0 - 8.0) 5.5 Ur Specific [place] (1.001 - 1.035) >= 1.030 Urine Protein (NEG,<30 MG/DL) 100 H Urine Ketones (NEG) 15 H Urine Nitrite (NEG) POS H Urine Bilirubin (NEG) POS@ICTO H Urine Urobilinogen (0.1 - 1.0 EU/dl) 2.0 H Ur Leukocyte Esterase (NEG) NEG Ur Microscopic SEDIMENT EXAMINED Urine RBC (0 - 5 /HPF) 3-5 Urine WBC (0 - 2 /HPF) 3-5 H Ur Epithelial Cells (NONE,FEW) MOD H Urine Crystals 1+ UR AC H Granular Casts (NONE /LPF) 1-3 H Urine Mucus (FEW,NONE) MANY H Urine Hemoglobin (NEG) NEG Urine Glucose (N MG/DL) NEG 04/22 04/22 04/22 0200 0200 0130 Chemistry Troponin I Cancelled Hematology CBC w Diff NO MAN DIFF REQ WBC (4.8 - 10.8 /CUMM) 7.7 RBC (4.70 - 6.10 /CUMM) 3.91 L Hgb (14.0 - 18.0 G/DL) 12.7 L Hct (42 - 52 %) 38.0 L MCV (80.0 - 94.0 FL) 97.2 H MCH (27.0 - 31.0 PG) 32.5 H RDW (11.5 - 14.5 %) 15.9 H Plt Count (130 - 400 /CUMM) 229 MPV (7.4 - 10.4 FL) 8.8 Gran % (42.2 - 75.2 %) 82.7 H Lymphocytes % (20.5 - 51.1 %) 7.7 L Monocytes % (1.7 - 9.3 %) 9.4 H Eosinophils % (0 - 5 %) 0 Basophils % (0.0 - 2.0 %) 0.2 % Normal PMNs (%) 96 PUBS MCHC (33.0 - 37.0 G/DL) 33.4 Immunology Absolute Granulocytes (1.4 - 6.5 /CUMM) 6.4 Absolute Lymphocytes (1.2 - 3.4 /CUMM) 0.6 L Absolute Monocytes (0.10 - 0.60 /CUMM) 0.7 H Absolute Eosinophils (0.0 - 0.7 /CUMM) 0 Absolute Basophils (0.0 - 0.2 /CUMM) 0 Other Body Source Fluid WBC (0 - 5 /CUMM) 9504 H Fld Mesothelial Cells (%) 4 Fld Total RBCs Counted (0 /CUMM) 2156 H Fluid Total Protein (g/dL) < 2.0 Fluid Albumin (g/dL) < 1.0 Last 24 Hours of Garcia Results: Blood cultures 2 April 22 pending Ascitic fluid culture April 22 positive for gram-negative rods noted on the gram stain from the blood culture bottle in which the ascitic fluid was placed Urine culture April 22 pending Diagnostic Data Recent Imaging Findings: CT of the abdomen and pelvis reveals pneumoperitoneum, sigmoid diverticulosis without evidence of diverticulitis and a moderate amount of ascites. Initial chest x-ray negative Repeat chest x-ray reveals nonspecific patchy airspace disease at left lung base and left perihilar and suprahilar region Assessment/Plan Assessment/Plan Impression: This is a 50-year-old man with a history of alcohol abuse admitted early this morning with a one-month history of abdominal pain, nausea, vomiting and diarrhea, with increasing symptoms over the last several days, found on CT scan of the abdomen and pelvis to have pneumoperitoneum and a moderate amount of ascites, with the paracentesis yielding a white blood cell count of nearly 10, 000 with gram-negative rods noted on the gram stain of the fluid obtained from the blood culture bottle into which the ascitic fluid was inoculated. His clinical picture is consistent with severe sepsis secondary to a perforated viscus, possibly an ulcer, and he has been taken to the OR. His antibiotic coverage is likely appropriate, with Ceftriaxone and Flagyl likely providing coverage for the most likely pathogens, but his gram-negative coverage could be broadened pending final cultures. He was given a dose of Vancomycin, which will likely remain in his system given his worsening renal failure, and this will provide additional coverage for organisms like Enterococcus. Suggestion: 1. Follow-up cultures from the paracentesis earlier today and from the OR 2. Discontinue Ceftriaxone 3. Begin Ceftazidime 2 g IV every 12 hours 4. Continue Flagyl Consult Acknowledgment - Thank you for your consult request.
--- NOTE | 2016-04-22 15:51 | NUR ---
1340: PT BROUGHT TO O.R AT THIS TIME. VSS. REPORT GIVEN TO ANESTHESIA. PT TAKEN OFF OF SEDATION MEDICATIONS (PROPOFOL, AND FENTANYL) PER ANESTHESIA. WILL REASSESS PT UPON RETURN FROM O.R.
--- NOTE | 2016-04-22 16:25 | Operative Report ---
Operative/Inv Procedure Report Surgery Date: 04/22/16 Name of Procedure: laparoscopic grahm plication of duodenal ulcer and core liver biopsy Pre-Operative Diagnosis: perforated viscus,liver failure, sepsis Post-Operative Diagnosis: same Estimated Blood Loss: less than 50ml Surgeon/Vice President Of Communications: WILLIAM VASQUEZ,KHALIF Bolaños PA-C Anesthesia: general endotracheal tube IV Fluids: crystalloid albumin 25% 1L Urine Output: 20cc Drains: CONNIE x 3 Specimens: liver biopsy peritoneal fluid culture Microbiology: peritoneal culture Complications: none Condition: guarded Operative Indication: see admission H and P Operative/Procedure Note Note: The patient was consented emergently by Dr. Monaco and myself as were unable to contact the family at the time of this emergent surgery for perforated viscus I had discussed with the patient prior to him being intubated the potential need for surgery, patient was taken the operating room from the ICU in critical condition on pressors, he had a central line placed in the ICU. He was placed on the operating room table underwent insertion of an arterial line. Patient was anuric the time of surgery. He underwent a general endotracheal anesthetic the abdomen was prepped and draped in normal sterile fashion patient had a tense ascites. In the left upper quadrant we inserted a 5 mm Visiport with a 0 5 mm laparoscope the cannula filled with ascites we began a suction out ascitic fluid. After removing approximately 2-1/2 L of fluid the laparoscope was advanced we inserted additional 5 mm cannula in the right upper quadrant and removed additional 5 L of ascites we insufflated the abdomen with 14 mm CO2. There is still a lot of ascites remaining in the abdominal cavity we could now visualize all 4 quadrants and the pelvis were able to move around the omentum and in the upper abdomen noted a perforated ulcer anteriorly in the first portion of the duodenum. The liver was severely cirrhotic appearing. We able to suction out a total of 10 L of ascites. We irrigated all 4 quadrants. We performed a Clint plication omental patch of the perforated ulcer which was lying just below the gallbladder anteriorly and the first portion of the duodenum was approximately half a centimeter in size. Sutures were placed laterally in the duodenum evening of breach of 2-0 Vicryl. We fed the omentum under the Vicryl suture and tied the sutures down. This was done with the placement of additional trochars a 10 mm trocar in the right midabdomen and 10 mm trocar in the left mid abdomen. Additional 5 mm trochars placed in the right upper quadrant to use a liver paddle to retract the liver to give exposure. Also upon entry with one of the trochars there is a question of whether or not the trocar penetrated the side of the transverse colon or the mesentery of the transverse colon a single silk stitch [id number] was placed in that area. There is no further leakage of bile. We placed 3 CONNIE drains bring the drains out through the trocar sites and tying them in with Vicryl suture the middle drain on the patient's abdomen is in the pelvis and one on the left side goes across and sits in the gallbladder fossa and the drain on the right side of the patient 's abdomen is sitting in the right gutter above the liver as the case proceeded amount of pressor was able to be diminished the patient began to make urine blood pressure remained stable. Continue the case removed all the trochars were closed skin incisions with skin staplers placed dry sterile dressings patient was taken back to the ICU in guarded condition. Findings: perforated anterior duodenal ulcer with 10 liters of bilious cloudy ascities Discharge Disposition: Critical Care Unit Additional Comments: remains on pressors
[2016-04-22 17:56] LABS: ABSOLUTE BASOPHIL COUNT 0 /CUMM (0.0-0.2); ABSOLUTE EOSINOPHIL COUNT 0 /CUMM (0.0-0.7); ABSOLUTE LYMPH COUNT 0.4 /CUMM (1.2-3.4); ABSOLUTE MONOCYTE COUNT 0.5 /CUMM (0.10-0.60); BASOPHIL % 0.1 % (0.0-2.0); EOSINOPHIL % 0 % (0-5); MEAN CORPUSCULAR HGB 32.5 PG (27.0-31.0); MEAN CORPUSCULAR HGB CONC 33.2 G/DL (33.0-37.0); MEAN PLATELET VOLUME 7.4 FL (7.4-10.4); PLATELET COUNT 137 /CUMM (130-400); RBC DISTRIBUTION WIDTH 15.7 % (11.5-14.5); RED BLOOD CELL CT 2.77 /CUMM (4.70-6.10); WHITE BLOOD CELL COUNT 6.9 /CUMM (4.8-10.8)
[2016-04-22 17:57] LABS: GRANULOCYTE % 86.6 % (42.2-75.2); HEMATOCRIT 27.2 % (42-52)
--- NOTE | 2016-04-22 18:03 | Event Note ---
Event Note Event Note: I have seen and reevaluated the patient. He is now post op for perforated viscus, noting his ascites was drained and he has [address] His abdominal distension has improved. His blood pressure has slightly improved and his pressor requirement is trending down. He remains sedated and intubated, on mechanical ventilation. Labs and repeat ABG are being drawn now. I discussed the overnight plan of care with the housestaff and nursing. I had a family meeting to update the patient's family including his mother and 2 sisters.
--- NOTE | 2016-04-22 18:06 | NUR ---
1000: PT'S B/P BORDERLINE 90'S/DOPPLER. LEVO GTT STARTED PERIPHERALLY AT 5MCG/MIN PER ORDER. 1 TIME DOSE OF ALBUMIN GIVEN AT THIS TIME. CONTINUE TO MONITOR. PLAN TO INTUBATION AND TLC PLACEMENT THIS MORNING.
--- NOTE | 2016-04-22 18:09 | NUR ---
1030: ANESTHESIA AT BEDSIDE FOR INTUBATION. PT MEDICATED BY ANESTHESIA WITH 200MG PROPOFOL, 120MG SUCC, 100MG LIDOCAINE. PT BECAME HYPOTENSIVE 64/47, LEVO GTT TITRATED TO 10MCG, AT 1040 LEVO INCREASED TO 15 MCG, AT 1045 LEVO INCREASED TO MAX DOSE OF 20 MCG- SEE ICU FOR DETAILS OF BLOOD PRESSURES. PT INTUBATED WITH #8 ET TUBE TAPED TO THE RIGHT AT 22CM SETTINGS FOLLOWS: AC-28/550/100%/5.
--- NOTE | 2016-04-22 18:11 | Cons- Gastroenterology ---
General Information and HPI Consulting Request Date of Consult: 04/22/16 Requested By: WILLIAM VASQUEZ,KHALIF De Jesus Reason for Consult: Postoperative management in patient with alcoholic liver disease Source of Information: old records History of Present Illness: 51-year-old male with history of long-standing and ongoing alcohol abuse, previous cocaine use, GERD, depression. He has had nausea, vomiting, diarrhea and abdominal pain/distention for several weeks. He presents acutely with pain, jaundice, and imaging demonstrating ascites, and suggesting perforated viscus with pneumoperitoneum. Because of decompensation, he was brought to the operating room where he was found to have perforated duodenal ulcer, which was patched. In addition a liver biopsy was obtained; the liver morphology was described as cirrhotic. Allergies/Medications Allergies: Coded Allergies: NO KNOWN ALLERGIES (08/27/12) Home Med List: Albuterol Sulfate 2.5 MG/3 ML (0.083 %) VIAL.NEB 3 ML INH BID BREATHING Atorvastatin Calcium 40 MG TABLET 1 TAB PO DAILY CHOLESTROL (Reported) Chondroitin Sulf/Glucosamine (Glucosamine & Chondroitin) 1 CAP CAP 1 CAP PO DAILY SUPPLEMENT (Reported) Fluoxetine HCl 40 MG CAPSULE 1 CAP PO QAM DEPRESSION (Reported) Folic Acid 1 MG TAB 1 MG PO DAILY SUPPLEMENT Lactobac Cmb #3/Fos/Pantethine (Probiotic & Acidophilus Cap) 300MM-250 CAPSULE 1 CAP PO DAILY GI Lactulose 10 GRAM/15 ML SOLUTION 30 ML PO BID HEPATIC ENCEPHALOPATHY Please resume after C. Diff infection has resolved to maintain 2-3 bowel movements. Lisinopril 20 MG TABLET 1 TAB PO DAILY BP (Reported) Meclizine HCl 25 MG TABLET 1 TAB PO TID DIZZINESS (Reported) Melatonin 5 MG TABLET 5 MG PO AT BEDTIME insomnia Metoprolol Succinate (Toprol XL) [address] 1 TAB PO DAILY BP (Reported) Metronidazole (Flagyl) 250 MG TABLET 500 MG PO Q8 C. DIFF Please take through 06/07/16 Omeprazole 20 MG CAPSULE.DR 40 MG PO BID Duodenal Ulcer Thiamine HCl (Vitamin B-1) 250 MG TABLET 1 TAB PO DAILY SUPPLEMENT Zolpidem Tartrate (Ambien) 5 MG TABLET 1 TAB PO QPMP ANXIETY Current Medications: Current Medications Sig/Roberto Start time Last Medication Dose Route Stop Time Status Admin Albumin Human 12.5 GM ONCE ONE 04/22 1000 DC 04/22 IV 04/22 1001 1027 Albumin Human 25 GM Q8 04/22 0700 AC 04/22 IV 0739 Albuterol Sulfate 3 ML Q4P PRN 04/22 1145 AC 04/22 INH 1134 Ceftazidime 2,000 MG Q12 04/22 2200 CAN IV Ceftazidime 2,000 MG Q12H 04/22 1730 AC IV Ceftazidime 2,000 MG Q12 04/22 1525 DC 04/22 IV 1735 Ceftriaxone Sodium 1,000 MG DAILY 04/23 1000 CAN IV Ceftriaxone Sodium 1,000 MG ONCE ONE 04/22 0445 DC 04/22 IV 04/22 0446 0450 Ceftriaxone Sodium 0 .STK-MED ONE 04/22 0443 DC .ROUTE Ceftriaxone Sodium 1,000 MG ONCE ONE 04/22 0345 DC IV 04/22 0346 Ceftriaxone Sodium 1,000 MG ONCE ONE 04/22 0345 DC IV 04/22 0346 Cyanocobalamin/ 1 BAG ONCE ONE 04/22 0545 DC 04/22 Thiamine/Pyridoxine IV 04/22 1344 0610 Sodium Chloride 1,000 ML Dextrose 25 GM ONCE ONE 04/22 1145 DC 04/22 IV 04/22 1146 1144 Dextrose 25 GM ONCE ONE 04/22 0600 DC 04/22 IV 04/22 0601 0610 Fentanyl Citrate 1,000 MCG Q24H 04/22 1030 AC 04/22 Dextrose/Water 250 ML IV 1145 Hydromorphone HCl 1 MG ONCE ONE 04/22 0930 DC 04/22 IV 04/22 0931 0934 Hydromorphone HCl 2 MG Q6P PRN 04/22 0930 AC IV Hydromorphone HCl 1 MG ONCE ONE 04/22 0330 DC 04/22 IV 04/22 0331 0339 Hydromorphone HCl 0 .STK-MED ONE 04/22 0330 DC .ROUTE Hydromorphone HCl 1 MG ONCE ONE 04/22 0230 DC 04/22 IV 04/22 0231 0236 Hydromorphone HCl 0 .STK-MED ONE 04/22 0223 DC .ROUTE Hydromorphone HCl 1 MG ONCE ONE 04/22 0145 DC 04/22 IV 04/22 0146 0137 Hydromorphone HCl 0 .STK-MED ONE 04/22 0134 DC .ROUTE Insulin Human Regular 10 UNITS ONCE ONE 04/22 1145 DC 04/22 IV 04/22 1146 1143 Insulin Human Regular 10 UNITS ONCE ONE 04/22 0600 DC 04/22 IV 04/22 0601 0610 Lisinopril 20 MG DAILY 04/22 1000 CAN PO Lorazepam 5 MG ONE ONE 04/22 1100 DC 04/22 IV 04/22 1101 1145 Lorazepam 0 Q1P PRN 04/22 0700 AC IV Magnesium Sulfate 1 GM Q2H 04/22 1000 DC 04/22 Dextrose/Water 100 ML IV 04/22 1359 1123 Metoprolol Succinate 25 MG DAILY 04/22 1000 CAN PO Metoprolol Succinate 25 MG DAILY 04/22 1000 CAN PO Metronidazole 500 MG Q8H 04/22 1300 AC 04/22 N/A 1 UNIT IV 1253 Metronidazole 500 MG ONCE ONE 04/22 0500 DC N/A 1 UNIT IV 04/22 0514 Metronidazole 500 MG ONCE ONE 04/22 0445 DC 04/22 N/A 1 UNIT IV 04/22 0544 0515 Metronidazole 500 MG ONCE ONE 04/22 0415 DC N/A 1 UNIT IV 04/22 0514 Morphine Sulfate 0 .STK-MED ONE 04/22 0745 DC .ROUTE Morphine Sulfate 2 MG Q3P PRN 04/22 0615 DC 04/22 IV 0748 Non-Formulary 0 SEE ADMIN CRITERIA 04/22 1700 CAN Medication ANY Non-Formulary 0 SEE ADMIN CRITERIA 04/22 1100 DC Medication ANY Norepinephrine 4 MG Q24H 04/22 1000 AC 04/22 Sodium Chloride 250 ML IV 1002 Norepinephrine 4 MG .STK-MED ONE 04/22 0953 DC IV 04/22 0954 Ondansetron HCl 4 MG Q8P PRN 04/22 0600 AC IV Ondansetron HCl 4 MG ONCE ONE 04/22 0515 DC 04/22 IV 04/22 0516 0519 Ondansetron HCl 0 .STK-MED ONE 04/22 0515 DC .ROUTE Ondansetron HCl 4 MG ONCE ONE 04/22 0145 DC IV 04/22 0146 Ondansetron HCl 0 .STK-MED ONE 04/22 0133 DC .ROUTE Pantoprazole Sodium 40 MG BID 04/22 2200 AC IV Pantoprazole Sodium 40 MG DAILY 04/22 1000 DC IV Pantoprazole Sodium 0 .STK-MED ONE 04/22 0327 DC IV Pantoprazole Sodium 40 MG ONCE ONE 04/22 0245 DC 04/22 IV 04/22 0246 0339 Phytonadione 10 MG ONCE ONE 04/22 0445 DC 04/22 IM 04/22 0446 0450 Phytonadione 0 .STK-MED ONE 04/22 0442 DC .ROUTE Propofol 1,000 MG Q24H 04/22 1715 AC 04/22 N/A 100 ML IV 1710 Propofol 1,000 MG Q24H 04/22 1100 DC 04/22 N/A 100 ML IV 1144 Sodium Chloride 500 ML BOLUS ONE 04/22 1200 DC 04/22 IV 04/22 1259 1154 Sodium Chloride 500 ML BOLUS ONE 04/22 0945 DC 04/22 IV 04/22 1044 1031 Sodium Chloride 1,000 ML Q20H 04/22 0830 DC 04/22 IV 04/22 1629 0826 Sodium Chloride 1,000 ML BOLUS ONE 04/22 0600 DC IV 04/22 0659 Thiamine HCl 0 .STK-MED ONE 04/22 0557 DC .ROUTE Vancomycin HCl 2,000 MG DAILY 04/22 1019 DC Sodium Chloride 250 ML IV Vancomycin HCl 2,000 MG DAILY 04/22 1000 AC 04/22 Sodium Chloride 500 ML IV 1153 Vasopressin 40 UNIT Q16H 04/22 1130 AC 04/22 Dextrose/Water 100 ML IV 1144 Past History Travel History Traveled to [place] past 21 day No Medical History Blood Transfusion Hx: No Neurological: vertigo EENT: NONE Cardiovascular: hypertension, HYPERLIPIDEMIA Respiratory: NONE Gastrointestinal: GERD, DIVERTICULOSIS Hepatic: "FATTY LIVER" Renal: NONE Musculoskeletal: chronic back pain, degen joint disease Psychiatric: alcohol dependence, anxiety Endocrine: NONE Blood Disorders: NONE Cancer(s): NONE 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 Psychosocial History Where Do You Live? Home Who Do You Live With? self Services at Home: None Smoking Status: Never Smoked ETOH Use: heavy use, alcoholic, daily >1 pint vodka Illicit Drug Use: denies illicit drug use Functional Ability ADLs Independent: dressing, eating, toileting, bathing. Ambulation: independent IADLs Independent: shopping, housework, finances, food prep, telephone, transportation , medication admin. Employment History Employment: Unemployed Review of Systems Review of Systems: Unobtainable given patient's clinical condition (intubated, sedated). Exam & Diagnostic Data Vital Signs and I&O Vital Signs Date Time Temp Pulse Resp B/P Pulse O2 O2 Flow FiO2 Ox Delivery Rate 04/22 1630 96.7 85 22 119/62 04/22 1630 97 Ventilator 65% 04/22 1630 96.7 85 22 119/62 97 Ventilator 65% 04/22 1610 80 04/22 1401 Ventilator 80% 04/22 1320 80 04/22 1200 96.7 70 28 118/60 04/22 1200 99 Ventilator 80% 04/22 1040 100 04/22 1002 100 95/56 04/22 1000 97.6 100 16 95/56 04/22 0846 97.6 101 16 82/65 04/22 0846 95 Nasal 2.0L Cannula 04/22 0846 97.6 101 16 82/65 95 Nasal 2.0L Cannula 04/22 0739 98.2 105 18 110/66 04/22 0637 99.0 112 18 105/58 93 Nasal 2.0L Cannula 04/22 0359 100.5 96 20 177/107 95 Nasal 2.0L Cannula 04/22 0245 97 Room Air 04/22 0123 99.3 95 20 156/100 95 Room Air Intake & Output 04/22 1600 04/22 0400 04/21 1600 04/21 0400 04/20 1600 04/20 0400 Intake Total 4029 Output Total 700 Balance 3329 Intake, Blood 613 Product Intake, IV 3416 Intake, Oral 0 Output, 400 Gastric Drainage Output, Urine 300 Patient 300 lb 300 lb Weight Physical Exam: Well-nourished white male, intubated and sedated. Skin jaundiced, without spider telangiectasias, palmar erythema, rash or other lesion. Good turgor. No ecchymoses, petechiae. No adenopathy. Sclera icteric. Pupils equal, reactive and accommodating. No evident oropharyngeal tongue lesion. Neck without masses , adenopathy. Heart regular rhythm. Lungs clear anterolaterally. Abdomen soft , with mild distention, and no palpable hepatosplenomegaly. Extremities with trace edema, and normal pulses. Cannot assess mental status, nor for asterixis. Results Pertinent Lab Results: Laboratory Tests 04/22 04/22 1737 1305 Blood Gas pH (7.35 - 7.45 PH) 7.46 H pCO2 (35 - 45 TORR) 27 L pO2 (80 - 100 TORR) 160 H HCO3 (21 - 28 MEQ/L) 19 L ABG O2 Sat (Measured) (>96.0 %) 98.0 Carboxyhemoglobin (1.5 - 5.0 %) 0.6 L O2 Concentration % 80% Respiration Rate (BPM) 28 O2 Delivery Method VENT Vent Mode AC Expiratory Pressure (CMH2O/P) 5 Tidal Volume (CC) 550 Chemistry Sodium Pending Potassium Pending Chloride Pending Carbon Dioxide Pending Anion Gap Pending BUN Pending Creatinine Pending Glucose Pending Calcium Pending Phosphorus Pending Magnesium Pending Total Bilirubin Pending AST Pending ALT Pending Albumin Pending Hematology CBC w Diff NO MAN DIFF REQ WBC (4.8 - 10.8 /CUMM) 6.9 RBC (4.70 - 6.10 /CUMM) 2.77 L Hgb (14.0 - 18.0 G/DL) 9.0 L Hct (42 - 52 %) 27.2 L MCV (80.0 - 94.0 FL) 98.0 H MCH (27.0 - 31.0 PG) 32.5 H RDW (11.5 - 14.5 %) 15.7 H Plt Count (130 - 400 /CUMM) 137 MPV (7.4 - 10.4 FL) 7.4 Gran % (42.2 - 75.2 %) 86.6 H Lymphocytes % (20.5 - 51.1 %) 5.4 L Monocytes % (1.7 - 9.3 %) 7.9 Eosinophils % (0 - 5 %) 0 Basophils % (0.0 - 2.0 %) 0.1 PUBS MCHC (33.0 - 37.0 G/DL) 33.2 Immunology Absolute Granulocytes (1.4 - 6.5 /CUMM) 6.0 Absolute Lymphocytes (1.2 - 3.4 /CUMM) 0.4 L Absolute Monocytes (0.10 - 0.60 /CUMM) 0.5 Absolute Eosinophils (0.0 - 0.7 /CUMM) 0 Absolute Basophils (0.0 - 0.2 /CUMM) 0 Miscellaneous Phlebotomy Draw Site LEFT RADIAL 04/22 04/22 04/22 04/22 1200 1138 1000 0985 Blood Gas pH (7.35 - 7.45 PH) 7.28 *L pCO2 (35 - 45 TORR) 49 H pO2 (80 - 100 TORR) 91 HCO3 (21 - 28 MEQ/L) 22 ABG O2 Sat (Measured) (>96.0 %) 94.0 L Carboxyhemoglobin (1.5 - 5.0 %) 1.2 L O2 Concentration % 3L O2 Delivery Method [place] Chemistry Sodium (137 - 145 mmol/L) Cancelled 135 L Potassium (3.5 - 5.1 mmol/L) Cancelled 5.9 H Chloride (98 - 107 mmol/L) Cancelled 96 L Carbon Dioxide (22 - 30 mmol/L) Cancelled 26 Anion Gap (5 - 16) Cancelled 14 BUN (9 - 20 mg/dL) Cancelled 18 Creatinine (0.7 - 1.2 mg/dL) Cancelled 1.7 H Estimated GFR (>60 ml/min) 43 L Glucose (65 - 99 mg/dL) Cancelled 114 H Calcium (8.4 - 10.2 mg/dL) Cancelled 8.2 L Phosphorus (2.5 - 4.5 mg/dL) Cancelled 5.5 H Magnesium (1.6 - 2.3 mg/dL) Cancelled 1.4 L Total Bilirubin (0.2 - 1.3 mg/dL) Cancelled 4.8 H AST (17 - 59 U/L) Cancelled 94 H ALT (21 - 72 U/L) Cancelled 39 Albumin (3.5 - 5.0 g/dL) Cancelled 3.2 L Hematology CBC w Diff Cancelled Cancelled WBC Cancelled Cancelled RBC Cancelled Cancelled Hgb Cancelled Cancelled Hct Cancelled Cancelled MCV Cancelled Cancelled MCH Cancelled Cancelled RDW Cancelled Cancelled Plt Count Cancelled Cancelled MPV Cancelled Cancelled PUBS MCHC Cancelled Cancelled Miscellaneous Phlebotomy Draw Site LEFT RADIAL 04/22 04/22 7012 0788 Chemistry Sodium (137 - 145 mmol/L) 135 L Potassium (3.5 - 5.1 mmol/L) 5.8 H Chloride (98 - 107 mmol/L) 94 L Carbon Dioxide (22 - 30 mmol/L) 26 Anion Gap (5 - 16) 14 BUN (9 - 20 mg/dL) 19 Creatinine (0.7 - 1.2 mg/dL) 1.7 H Estimated GFR (>60 ml/min) 43 L BUN/Creatinine Ratio (7 - 25 %) 11.2 Lactic Acid (0.7 - 2.1 mmol/L) 4.1 H 5.3 H Total Bilirubin (0.2 - 1.3 mg/dL) 4.7 H Direct Bilirubin (< 0.4 mg/dL) 3.0 H AST (17 - 59 U/L) 95 H ALT (21 - 72 U/L) 48 Alkaline Phosphatase (< 127 U/L) 152 H Total Protein (6.3 - 8.2 g/dL) 6.5 Albumin (3.5 - 5.0 g/dL) 3.2 L Coagulation PT (9.4 - 12.5 SEC) 17.6 H INR (0.90 - 1.17) 1.67 H Hematology CBC w Diff MAN DIFF ORDERED WBC (4.8 - 10.8 /CUMM) 11.6 H RBC (4.70 - 6.10 /CUMM) 3.51 L Hgb (14.0 - 18.0 G/DL) 11.4 L Hct (42 - 52 %) 34.9 L MCV (80.0 - 94.0 FL) 99.5 H MCH (27.0 - 31.0 PG) 32.4 H RDW (11.5 - 14.5 %) 15.6 H Plt Count (130 - 400 /CUMM) 243 MPV (7.4 - 10.4 FL) 7.9 Gran % (42.2 - 75.2 %) 88.4 H Lymphocytes % (20.5 - 51.1 %) 2.4 L Monocytes % (1.7 - 9.3 %) 9.2 Eosinophils % (0 - 5 %) 0 Basophils % (0.0 - 2.0 %) 0 L Segmented Neutrophils (42.2 - 75.2 %) 77 H Band Neutrophils (0.0 - 5.0 %) 13 H Lymphocytes (20.5 - 51.1 %) 2 L Monocytes (1.7 - 9.3 %) 8 Platelet Estimate (ADEQUATE) ADEQUATE Normocytic RBCs VERIFIED Normochromic RBCs VERIFIED PUBS MCHC (33.0 - 37.0 G/DL) 32.6 L Immunology Absolute Granulocytes (1.4 - 6.5 /CUMM) 10.3 H Absolute Lymphocytes (1.2 - 3.4 /CUMM) 0.3 L Absolute Monocytes (0.10 - 0.60 /CUMM) 1.1 H Absolute Eosinophils (0.0 - 0.7 /CUMM) 0 Absolute Basophils (0.0 - 0.2 /CUMM) 0 Serology Hepatitis A IgM Ab (NONREACTIVE) NONREACTIVE Hep Bs Antigen (NONREACTIVE) NONREACTIVE Hep B Core IgM Ab Conf (NONREACTIVE) NONREACTIVE Hepatitis C Antibody (NONREACTIVE) NONREACTIVE HIV 1&2 Ab Western Blot (NONREACTIVE) NONREACTIVE Toxicology Acetaminophen (10.0 - 30.0 ug/mL) < 10.0 L 04/22 04/22 04/22 0605 0235 0235 Chemistry Sodium (137 - 145 mmol/L) 133 L Potassium (3.5 - 5.1 mmol/L) 5.4 H Chloride (98 - 107 mmol/L) 93 L Carbon Dioxide (22 - 30 mmol/L) 25 Anion Gap (5 - 16) 15 BUN (9 - 20 mg/dL) 18 Creatinine (0.7 - 1.2 mg/dL) 0.9 Estimated GFR (>60 ml/min) > 60 BUN/Creatinine Ratio (7 - 25 %) 20.0 Glucose (65 - 99 mg/dL) 148 H Lactic Acid (0.7 - 2.1 mmol/L) 3.3 H Calcium (8.4 - 10.2 mg/dL) 8.7 Magnesium (1.6 - 2.3 mg/dL) 1.3 L Total Bilirubin (0.2 - 1.3 mg/dL) 4.2 H Direct Bilirubin (< 0.4 mg/dL) 2.5 H AST (17 - 59 U/L) 112 H ALT (21 - 72 U/L) 55 Alkaline Phosphatase (< 127 U/L) 200 H Ammonia (9 - 30 umol/L) 24 Troponin I (<0.11 ng/ml) 0.05 Total Protein (6.3 - 8.2 g/dL) 6.7 Albumin (3.5 - 5.0 g/dL) 3.2 L Amylase (30 - 110 U/L) 94 Lipase (23 - 300 U/L) 405 H Vitamin B12 (239 - 931 pg/mL) 560 Folate (2.76 - 20.0 ng/mL) 4.0 TSH (0.270 - 4.200 uIU/mL) 8.960 H Free T4 (0.64 - 1.79 ng/dL) 1.85 H Coagulation PT (9.4 - 12.5 SEC) 17.3 H INR (0.90 - 1.17) 1.66 H APTT (25 - 37 SEC) 34 Toxicology Urine Opiates Screen (>2000 NG/ML) 174.00 Methadone Screen (>300 NG/ML) < 40 Barbiturate Screen (>200 NG/ML) < 60 Ur Phencyclidine Scrn (>25 NG/ML) < 6.00 Amphetamines Screen (>1000 NG/ML) < 100 U Benzodiazepines Scrn (>200 NG/ML) < 85 Urine Cocaine Screen (>300 NG/ML) < 50 Urine Cannabis Screen (>50 NG/ML) 5.90 Serum Alcohol (<10 MG/DL) 86.0 Urines Urinalysis LIGHT H Urine Color (YEL,AMB,STR) ORANG H Urine Clarity (CLEAR) HAZY H Urine pH (5.0 - 8.0) 5.5 Ur Specific [place] (1.001 - 1.035) >= 1.030 Urine Protein (NEG,<30 MG/DL) 100 H Urine Ketones (NEG) 15 H Urine Nitrite (NEG) POS H Urine Bilirubin (NEG) POS@ICTO H Urine Urobilinogen (0.1 - 1.0 EU/dl) 2.0 H Ur Leukocyte Esterase (NEG) NEG Ur Microscopic SEDIMENT EXAMINED Urine RBC (0 - 5 /HPF) 3-5 Urine WBC (0 - 2 /HPF) 3-5 H Ur Epithelial Cells (NONE,FEW) MOD H Urine Crystals 1+ UR AC H Granular Casts (NONE /LPF) 1-3 H Urine Mucus (FEW,NONE) MANY H Urine Hemoglobin (NEG) NEG Urine Glucose (N MG/DL) NEG 04/22 04/22 04/22 0200 0200 0130 Chemistry Troponin I Cancelled Hematology CBC w Diff NO MAN DIFF REQ WBC (4.8 - 10.8 /CUMM) 7.7 RBC (4.70 - 6.10 /CUMM) 3.91 L Hgb (14.0 - 18.0 G/DL) 12.7 L Hct (42 - 52 %) 38.0 L MCV (80.0 - 94.0 FL) 97.2 H MCH (27.0 - 31.0 PG) 32.5 H RDW (11.5 - 14.5 %) 15.9 H Plt Count (130 - 400 /CUMM) 229 MPV (7.4 - 10.4 FL) 8.8 Gran % (42.2 - 75.2 %) 82.7 H Lymphocytes % (20.5 - 51.1 %) 7.7 L Monocytes % (1.7 - 9.3 %) 9.4 H Eosinophils % (0 - 5 %) 0 Basophils % (0.0 - 2.0 %) 0.2 % Normal PMNs (%) 96 PUBS MCHC (33.0 - 37.0 G/DL) 33.4 Immunology Absolute Granulocytes (1.4 - 6.5 /CUMM) 6.4 Absolute Lymphocytes (1.2 - 3.4 /CUMM) 0.6 L Absolute Monocytes (0.10 - 0.60 /CUMM) 0.7 H Absolute Eosinophils (0.0 - 0.7 /CUMM) 0 Absolute Basophils (0.0 - 0.2 /CUMM) 0 Other Body Source Fluid WBC (0 - 5 /CUMM) 9504 H Fld Mesothelial Cells (%) 4 Fld Total RBCs Counted (0 /CUMM) 2156 H Fluid Total Protein (g/dL) < 2.0 Fluid Albumin (g/dL) < 1.0 Assessment/Plan Assessment/Recommendations: Alcoholic cirrhosis, verified by intraoperative examination of liver (with biopsy pending). Superimposed alcoholic hepatitis. Ascites; preoperative analysis demonstrated a high SAAG/low protein consistent with sinusoidal portal hypertension, and a PMN count consistent with secondary peritonitis from the duodenal ulcer perforation (not SBP). According to Dr. Murillo, there were no significant intra-abdominal or abdominal wall varices, and no substantial bleeding intraoperatively. The patient has hyperbilirubinemia, a relatively minor coagulopathy, no thrombocytopenia. He had preoperative azotemia, but is passing urine now. He has relatively minor vasopressor need. He has received approximately 100 mg of albumin before and during surgery; about 11 L of ascites was removed intraoperatively. He will be sedated at least overnight, and it will be difficult to assess for the development of encephalopathy during this time. He is at substantial risk of alcohol withdrawal. Given alcoholic hepatitis and his degree of liver dysfunction, his postoperative mortality rate is more than 15%. Possible complications would include worsening jaundice, bleeding, DIC, encephalopathy, renal failure, infection. Recommendations * Monitor and chart output from intra-abdominal drains. Will need to give colloid (albumin) to balance losses * Monitor magnesium, phosphorus, electrolytes, LFTs, BUN, creatinine, CBC, INR * Continue broad spectrum antibiotics, pending culture results * Carefully avoid potential hepatotoxins and nephrotoxins * Alcohol withdrawal precautions/protocol Thank you for asking us to participate in this patient's case. Dr. Hernandez will resume the patient's GI care. Consult Acknowledgment - Thank you for your consult request.
--- NOTE | 2016-04-22 18:11 | NUR ---
1045: SURGICAL PA AND DR PETERSEN AT BEDSIDE FOR TLC PLACEMENT TO RIJ. PT MEDICATED WITH 5MG IV PUSH ATIVAN. PT STARTED ON PROPOFOL GTT AT 40MCG/KG/MIN. PT B/P 80/61, VASO GTT STARTED AT THIS TIME AT 6ML/HR. 1100: PT STARTED ON FENTANYL GTT AT 50MCG. 500 NS BOLUS GIVEN PER ORDER. 1ST UNIT OF FFP INFUSING. RIJ TLC SUCCESSFULLY PLACED, REPEAT CXR FOR CONFIRMATION OF ET TUBE AND RIJ PLACEMENT.
--- NOTE | 2016-04-22 18:21 | NUR ---
1200: 2ND UNIT OF [facility]FP INFUSING. REPEAT POTASSIUM 5.9, 1 AMP D50 AND 10 UNITS IV NOVOLIN GIVEN. 1215: FIO2 DECREASED TO 80% PER RT. CVP CHECKED, OBTAINED 34 READING, REPORTED TO DR PANDEY. 1230: INTRA ABDOMINAL PRESSURE OBTAINED 24 READING, REPORTED TO DR. PANDEY. 1300: 2G IV VANCO INFUSING PRE OP PER ORDER. O.R. SCRUB COMPLETED AT THIS TIME. 1340: LEVO CURRENTLY INFUSING AT 14MCG, SEE ICU FLOW SHEET FOR DETAILS OF B/P READINGS AND TITRATIONS. AT THIS TIME THIS RN ALONG WITH 2ND RN AND RT TRANSPORTED PT TO O.R. WILL REASSESS UPON RETURN TO UNIT.
--- NOTE | 2016-04-22 18:26 | NUR ---
1615: PT ARRIVED BACK TO UNIT AT THIS TIME WITH ANESTHESIA. PT PLACED BACK ON VENT PER RT AT 80% FIO2 WITH A DECREASED RESP RATE OF 22, RESP RATE CHANGED AT 1300 PRIOR TO TRANSFER TO O.R. PT PLACED BACK ON SEDATION OF PROPOFOL AT DECREASED RATE OF 20MCG/KG/MIN, FENTANYL GTT RESTARTED AT DECREASED RATE OF 50MCG, LEVO GTT NOTED TO BE INFUSING AT 2MCG/MIN, NEW A LINE NOTED TO LEFT RADIAL SITE, ZEROED AT THIS TIME, VASO CONTINUES AT 6ML/HR. CVP RECONNECTED OBTAINED READING OF 23, REPORTED TO DR PANDEY. NGT NOTED TO BE ADVANCED TO 60CM FROM 55 CM BY O.R TEAM, PLACED TO LOW WALL SUCTION AT THIS TIME. BANANA BAG RESTARTED. 3 CONNIE'S TO ABDOMEN, EMPTIED A THIS TIME. 2 LAP SITES TO ABDOMEN, DRESSING CLEAN DRY AND INTACT. IMPROVEMENT IN URINE OUTPUT NOTED, 30-50CC/HR. 1640: FIO2 TITRATED TO 65% PER RT, SAT REMAINS STABLE. 1700: B/P 130/68, VASO GTT D/C'D AT THIS TIME. 1815: B/P 91/50, LEVO GTT TITRATED TO 3MCG FROM 2MCG. IV FORTAZ INFUSED ORDERED. REPEAT LABS INCLUDING CBC, AND ICU BUNDLE DRAWN AND SENT TO LAB. FAMILY AT BEDSIDE, UPDATED BY DR PANDEY, FAMILY LINING STAMPER AT BEDSIDE PERFORMING PRAYER. FAMILY NOTIFIED THAT PT YELLOW CHAIN AND WALLET IS IN SAFE, MOTHER GIVEN PT'S CELL PHONE AND GLASSES ARE IN BEDSIDE TABLE DRAWER. 1830: REPEAT ABG DRAWN BY RT.
--- NOTE | 2016-04-22 18:57 | NUR ---
@1900-RR DECREASED TO 18 FROM 22 ON VENT AND FIO2 DECREASED TO 55% FROM 65% PER RT. REPEAT ABG TO BE CHECKED AT 0000. FAMILY REMAINS AT BEDSIDE. ECHO TO BE DONE TONIGHT.
--- NOTE | 2016-04-22 19:30 | NUR ---
CONNIE SITES LEAKING AND DRESSINGS SATURATED, SURG PA JESSICA MADE AWARE. PER JESSICA DRESSINGS CAN BE CHANGED OR REINFORCED. MIDDLE CONNIE SITE HAS GREEN DRAINAGE NOTED ON DRESSING, SURG PA MADE AWARE OF THIS WELL. DRESSINGS TO BE CHANGED. CONNIE BULB #2 FULL, EMPTIED FOR 100ML.
--- NOTE | 2016-04-22 20:58 | PN- General Surgery ---
Subjective Subjective: Post Op Note s/p exploratory laparoscopy with grahm plication of duodenal ulcer and core liver biopsy. Patient intubated and sedated with propfol but opens eyes to stimuli No acute events after returning to ICU Objective Vital Signs and I&Os Vital Signs Date Time Temp Pulse Resp B/P Pulse O2 O2 Flow FiO2 Ox Delivery Rate 04/22 1900 55 04/22 1630 96.7 85 22 119/62 04/22 1630 97 Ventilator 65% 04/22 1630 96.7 85 22 119/62 97 Ventilator 65% 04/22 1610 80 04/22 1401 Ventilator 80% 04/22 1320 80 04/22 1200 96.7 70 28 118/60 04/22 1200 99 Ventilator 80% 04/22 1040 100 04/22 1002 100 95/04/22 1000 97.6 100 16 9504/22 0846 97.6 101 16 82/65 04/22 0846 95 Nasal 2.0L Cannula 04/22 0846 97.6 101 16 82/65 95 Nasal 2.0L Cannula 04/22 0739 98.2 105 18 110/66 04/22 0637 99.0 112 18 105/58 93 Nasal 2.0L Cannula 04/22 0359 100.5 96 20 177/107 95 Nasal 2.0L Cannula 04/22 0245 97 Room Air 04/22 0123 99.3 95 20 156/100 95 Room Air Intake & Output 04/22 1600 04/22 0800 04/22 0000 04/21 1600 04/21 0800 04/21 0000 Intake Total 4029 Output Total 400 300 Balance 3629 -300 Intake, Blood 613 Product Intake, IV 3416 Intake, Oral 0 Output, 100 300 Gastric Drainage Output, Urine 300 Patient 300 lb 300 lb Weight Physical Exam: Gen: Intubated, sedated Lungs: ventilated with good air movement and chest expansion CV: RRR Abd: Mild firmness, distended. Incision site dressings c/d/i. CONNIE drain x3 with serosanguinous drainage and drain dressings saturated. Ext: BLE with 3+ edema, warm, no calve swelling. 1+ DP BLE. Current Medications: Current Medications Sig/Roberto Start time Last Medication Dose Route Stop Time Status Admin Albumin Human 12.5 GM ONCE ONE 04/22 1000 DC 04/22 IV 04/22 1001 1027 Albumin Human 25 GM Q8 04/22 0700 AC 04/22 IV 0739 Albuterol Sulfate 3 ML Q4P PRN 04/22 1145 AC 04/22 INH 1134 Ceftazidime 2,000 MG Q12 04/22 2200 CAN IV Ceftazidime 2,000 MG Q12H 04/22 1730 AC IV Ceftazidime 2,000 MG Q12 04/22 1525 DC 04/22 IV 1735 Ceftriaxone Sodium 1,000 MG DAILY 04/23 1000 CAN IV Ceftriaxone Sodium 1,000 MG ONCE ONE 04/22 0445 DC 04/22 IV 04/22 0446 0450 Ceftriaxone Sodium 0 .STK-MED ONE 04/22 0443 DC .ROUTE Ceftriaxone Sodium 1,000 MG ONCE ONE 04/22 0345 DC IV 04/22 0346 Ceftriaxone Sodium 1,000 MG ONCE ONE 04/22 0345 DC IV 04/22 0346 Cyanocobalamin/ 1 BAG ONCE ONE 04/22 0545 DC 04/22 Thiamine/Pyridoxine IV 04/22 1344 0610 Sodium Chloride 1,000 ML Dextrose 25 GM ONCE ONE 04/22 1145 DC 04/22 IV 04/22 1146 1144 Dextrose 25 GM ONCE ONE 04/22 0600 DC 04/22 IV 04/22 0601 0610 Fentanyl Citrate 1,000 MCG Q24H 04/22 1030 AC 04/22 Dextrose/Water 250 ML IV 1145 Hydromorphone HCl 1 MG ONCE ONE 04/22 0930 DC 04/22 IV 04/22 0931 0934 Hydromorphone HCl 2 MG Q6P PRN 04/22 0930 AC IV Hydromorphone HCl 1 MG ONCE ONE 04/22 0330 DC 04/22 IV 04/22 0331 0339 Hydromorphone HCl 0 .STK-MED ONE 04/22 0330 DC .ROUTE Hydromorphone HCl 1 MG ONCE ONE 04/22 0230 DC 04/22 IV 04/22 0231 0236 Hydromorphone HCl 0 .STK-MED ONE 04/22 0223 DC .ROUTE Hydromorphone HCl 1 MG ONCE ONE 04/22 0145 DC 04/22 IV 04/22 0146 0137 Hydromorphone HCl 0 .STK-MED ONE 04/22 0134 DC .ROUTE Insulin Human Regular 10 UNITS ONCE ONE 04/22 1145 DC 04/22 IV 04/22 1146 1143 Insulin Human Regular 10 UNITS ONCE ONE 04/22 0600 DC 04/22 IV 04/22 0601 0610 Lidocaine 20 ML .STK-MED ONE 04/22 1032 DC IA 04/22 1033 Lisinopril 20 MG DAILY 04/22 1000 CAN PO Lorazepam 5 MG ONE ONE 04/22 1100 DC 04/22 IV 04/22 1101 1145 Lorazepam 0 Q1P PRN 04/22 0700 AC IV Magnesium Sulfate 1 GM .STK-MED ONE 04/22 1109 DC IV 04/22 1110 Magnesium Sulfate 1 GM .STK-MED ONE 04/22 1007 DC IV 04/22 1008 Magnesium Sulfate 1 GM Q2H 04/22 1000 DC 04/22 Dextrose/Water 100 ML IV 04/22 1359 1123 Metoprolol Succinate 25 MG DAILY 04/22 1000 CAN PO Metoprolol Succinate 25 MG DAILY 04/22 1000 CAN PO Metronidazole 500 MG Q8H 04/22 1300 AC 04/22 N/A 1 UNIT IV 1253 Metronidazole 500 MG ONCE ONE 04/22 0500 DC N/A 1 UNIT IV 04/22 0514 Metronidazole 500 MG ONCE ONE 04/22 0445 DC 04/22 N/A 1 UNIT IV 04/22 0544 0515 Metronidazole 500 MG ONCE ONE 04/22 0415 DC N/A 1 UNIT IV 04/22 0514 Morphine Sulfate 0 .STK-MED ONE 04/22 0745 DC .ROUTE Morphine Sulfate 2 MG Q3P PRN 04/22 0615 DC 04/22 IV 0748 Non-Formulary 0 SEE ADMIN CRITERIA 04/22 1700 CAN Medication ANY Non-Formulary 0 SEE ADMIN CRITERIA 04/22 1100 DC Medication ANY Norepinephrine 4 MG Q24H 04/22 1000 AC 04/22 Sodium Chloride 250 ML IV 1002 Norepinephrine 4 MG .STK-MED ONE 04/22 0953 DC IV 04/22 0954 Ondansetron HCl 4 MG Q8P PRN 04/22 0600 AC IV Ondansetron HCl 4 MG ONCE ONE 04/22 0515 DC 04/22 IV 04/22 0516 0519 Ondansetron HCl 0 .STK-MED ONE 04/22 0515 DC .ROUTE Ondansetron HCl 4 MG ONCE ONE 04/22 0145 DC IV 04/22 0146 Ondansetron HCl 0 .STK-MED ONE 04/22 0133 DC .ROUTE Pantoprazole Sodium 40 MG BID 04/22 2200 AC IV Pantoprazole Sodium 40 MG DAILY 04/22 1000 DC IV Pantoprazole Sodium 0 .STK-MED ONE 04/22 0327 DC IV Pantoprazole Sodium 40 MG ONCE ONE 04/22 0245 DC 04/22 IV 04/22 0246 0339 Phytonadione 10 MG ONCE ONE 04/22 0445 DC 04/22 IM 04/22 044 0450 Phytonadione 0 .STK-MED ONE 04/22 0442 DC .ROUTE Propofol 1,000 MG Q24H 04/22 1715 AC 04/22 N/A 100 ML IV 1947 Propofol 1,000 MG Q24H 04/22 1100 DC 04/22 N/A 100 ML IV 1144 Propofol 1,000 MG .STK-MED ONE 04/22 1021 DC IV 04/22 1022 Sodium Chloride 500 ML BOLUS ONE 04/22 1200 DC 04/22 IV 04/22 1259 1154 Sodium Chloride 500 ML BOLUS ONE 04/22 0945 DC 04/22 IV 04/22 1044 1031 Sodium Chloride 1,000 ML Q20H 04/22 0830 DC 04/22 IV 04/22 1629 0826 Sodium Chloride 1,000 ML BOLUS ONE 04/22 0600 DC IV 04/22 0659 Thiamine HCl 0 .STK-MED ONE 04/22 0557 DC .ROUTE Vancomycin HCl 2,000 MG DAILY 04/22 1019 DC Sodium Chloride 250 ML IV Vancomycin HCl 2,000 MG DAILY 04/22 1000 AC 04/22 Sodium Chloride 500 ML IV 1153 Vasopressin 40 UNIT Q16H 04/22 1130 DC 04/22 Dextrose/Water 100 ML IV 1144 Vasopressin 40 UNITS .STK-MED ONE 04/22 1043 DC IM 04/22 1044 Results Last 48 Hours of Labs: Laboratory Tests 04/22 04/22 04/22 1830 1737 1305 Blood Gas pH (7.35 - 7.45 PH) 7.44 7.46 H pCO2 (35 - 45 TORR) 35 27 L pO2 (80 - 100 TORR) 125 H 160 H HCO3 (21 - 28 MEQ/L) 24 19 L ABG O2 Sat (Measured) (>96.0 %) 98.0 98.0 P-50 (Temp Corrected) Y Carboxyhemoglobin (1.5 - 5.0 %) 0.1 L 0.6 L O2 Concentration % 65 80% Temperature (97.0 - 100.0 FARH) 96.7 L Respiration Rate (BPM) 22 28 O2 Delivery Method ESPRIT VENT Vent Mode AC AC Expiratory Pressure (CMH2O/P) 5 5 Tidal Volume (CC) 550 550 Chemistry Sodium (137 - 145 mmol/L) 133 L Potassium (3.5 - 5.1 mmol/L) 4.8 Chloride (98 - 107 mmol/L) 97 L Carbon Dioxide (22 - 30 mmol/L) 25 Anion Gap (5 - 16) 11 BUN (9 - 20 mg/dL) 19 Creatinine (0.7 - 1.2 mg/dL) 1.3 H Estimated GFR (>60 ml/min) 59 L Glucose (65 - 99 mg/dL) 139 H Calcium (8.4 - 10.2 mg/dL) 7.7 L Phosphorus (2.5 - 4.5 mg/dL) 4.1 Magnesium (1.6 - 2.3 mg/dL) 1.6 Total Bilirubin (0.2 - 1.3 mg/dL) 4.0 H AST (17 - 59 U/L) 85 H ALT (21 - 72 U/L) 45 Albumin (3.5 - 5.0 g/dL) 2.8 L Hematology CBC w Diff NO MAN DIFF REQ WBC (4.8 - 10.8 /CUMM) 6.9 RBC (4.70 - 6.10 /CUMM) 2.77 L Hgb (14.0 - 18.0 G/DL) 9.0 L Hct (42 - 52 %) 27.2 L MCV (80.0 - 94.0 FL) 98.0 H MCH (27.0 - 31.0 PG) 32.5 H RDW (11.5 - 14.5 %) 15.7 H Plt Count (130 - 400 /CUMM) 137 MPV (7.4 - 10.4 FL) 7.4 Gran % (42.2 - 75.2 %) 86.6 H Lymphocytes % (20.5 - 51.1 %) 5.4 L Monocytes % (1.7 - 9.3 %) 7.9 Eosinophils % (0 - 5 %) 0 Basophils % (0.0 - 2.0 %) 0.1 PUBS MCHC (33.0 - 37.0 G/DL) 33.2 Immunology Absolute Granulocytes (1.4 - 6.5 /CUMM) 6.0 Absolute Lymphocytes (1.2 - 3.4 /CUMM) 0.4 L Absolute Monocytes (0.10 - 0.60 /CUMM) 0.5 Absolute Eosinophils (0.0 - 0.7 /CUMM) 0 Absolute Basophils (0.0 - 0.2 /CUMM) 0 Miscellaneous Phlebotomy Draw Site DOUGLAS LEFT RADIAL 04/22 04/22 04/22 04/22 1200 1138 1000 0952 Blood Gas pH (7.35 - 7.45 PH) 7.28 *L pCO2 (35 - 45 TORR) 49 H pO2 (80 - 100 TORR) 91 HCO3 (21 - 28 MEQ/L) 22 ABG O2 Sat (Measured) (>96.0 %) 94.0 L Carboxyhemoglobin (1.5 - 5.0 %) 1.2 L O2 Concentration % 3L O2 Delivery Method NC Chemistry Sodium (137 - 145 mmol/L) Cancelled 135 L Potassium (3.5 - 5.1 mmol/L) Cancelled 5.9 H Chloride (98 - 107 mmol/L) Cancelled 96 L Carbon Dioxide (22 - 30 mmol/L) Cancelled 26 Anion Gap (5 - 16) Cancelled 14 BUN (9 - 20 mg/dL) Cancelled 18 Creatinine (0.7 - 1.2 mg/dL) Cancelled 1.7 H Estimated GFR (>60 ml/min) 43 L Glucose (65 - 99 mg/dL) Cancelled 114 H Calcium (8.4 - 10.2 mg/dL) Cancelled 8.2 L Phosphorus (2.5 - 4.5 mg/dL) Cancelled 5.5 H Magnesium (1.6 - 2.3 mg/dL) Cancelled 1.4 L Total Bilirubin (0.2 - 1.3 mg/dL) Cancelled 4.8 H AST (17 - 59 U/L) Cancelled 94 H ALT (21 - 72 U/L) Cancelled 39 Albumin (3.5 - 5.0 g/dL) Cancelled 3.2 L Hematology CBC w Diff Cancelled Cancelled WBC Cancelled Cancelled RBC Cancelled Cancelled Hgb Cancelled Cancelled Hct Cancelled Cancelled MCV Cancelled Cancelled MCH Cancelled Cancelled RDW Cancelled Cancelled Plt Count Cancelled Cancelled MPV Cancelled Cancelled PUBS MCHC Cancelled Cancelled Miscellaneous Phlebotomy Draw Site LEFT RADIAL 04/22 04/22 0952 0736 Chemistry Sodium (137 - 145 mmol/L) 135 L Potassium (3.5 - 5.1 mmol/L) 5.8 H Chloride (98 - 107 mmol/L) 94 L Carbon Dioxide (22 - 30 mmol/L) 26 Anion Gap (5 - 16) 14 BUN (9 - 20 mg/dL) 19 Creatinine (0.7 - 1.2 mg/dL) 1.7 H Estimated GFR (>60 ml/min) 43 L BUN/Creatinine Ratio (7 - 25 %) 11.2 Lactic Acid (0.7 - 2.1 mmol/L) 4.1 H 5.3 H Total Bilirubin (0.2 - 1.3 mg/dL) 4.7 H Direct Bilirubin (< 0.4 mg/dL) 3.0 H AST (17 - 59 U/L) 95 H ALT (21 - 72 U/L) 48 Alkaline Phosphatase (< 127 U/L) 152 H Total Protein (6.3 - 8.2 g/dL) 6.5 Albumin (3.5 - 5.0 g/dL) 3.2 L Coagulation PT (9.4 - 12.5 SEC) 17.6 H INR (0.90 - 1.17) 1.67 H Hematology CBC w Diff MAN DIFF ORDERED WBC (4.8 - 10.8 /CUMM) 11.6 H RBC (4.70 - 6.10 /CUMM) 3.51 L Hgb (14.0 - 18.0 G/DL) 11.4 L Hct (42 - 52 %) 34.9 L MCV (80.0 - 94.0 FL) 99.5 H MCH (27.0 - 31.0 PG) 32.4 H RDW (11.5 - 14.5 %) 15.6 H Plt Count (130 - 400 /CUMM) 243 MPV (7.4 - 10.4 FL) 7.9 Gran % (42.2 - 75.2 %) 88.4 H Lymphocytes % (20.5 - 51.1 %) 2.4 L Monocytes % (1.7 - 9.3 %) 9.2 Eosinophils % (0 - 5 %) 0 Basophils % (0.0 - 2.0 %) 0 L Segmented Neutrophils (42.2 - 75.2 %) 77 H Band Neutrophils (0.0 - 5.0 %) 13 H Lymphocytes (20.5 - 51.1 %) 2 L Monocytes (1.7 - 9.3 %) 8 Platelet Estimate (ADEQUATE) ADEQUATE Normocytic RBCs VERIFIED Normochromic RBCs VERIFIED PUBS MCHC (33.0 - 37.0 G/DL) 32.6 L Immunology Absolute Granulocytes (1.4 - 6.5 /CUMM) 10.3 H Absolute Lymphocytes (1.2 - 3.4 /CUMM) 0.3 L Absolute Monocytes (0.10 - 0.60 /CUMM) 1.1 H Absolute Eosinophils (0.0 - 0.7 /CUMM) 0 Absolute Basophils (0.0 - 0.2 /CUMM) 0 Serology Hepatitis A IgM Ab (NONREACTIVE) NONREACTIVE Hep Bs Antigen (NONREACTIVE) NONREACTIVE Hep B Core IgM Ab Conf (NONREACTIVE) NONREACTIVE Hepatitis C Antibody (NONREACTIVE) NONREACTIVE HIV 1&2 Ab Western Blot (NONREACTIVE) NONREACTIVE Toxicology Acetaminophen (10.0 - 30.0 ug/mL) < 10.0 L 04/22 04/22 04/22 0605 0235 0235 Chemistry Sodium (137 - 145 mmol/L) 133 L Potassium (3.5 - 5.1 mmol/L) 5.4 H Chloride (98 - 107 mmol/L) 93 L Carbon Dioxide (22 - 30 mmol/L) 25 Anion Gap (5 - 16) 15 BUN (9 - 20 mg/dL) 18 Creatinine (0.7 - 1.2 mg/dL) 0.9 Estimated GFR (>60 ml/min) > 60 BUN/Creatinine Ratio (7 - 25 %) 20.0 Glucose (65 - 99 mg/dL) 148 H Lactic Acid (0.7 - 2.1 mmol/L) 3.3 H Calcium (8.4 - 10.2 mg/dL) 8.7 Magnesium (1.6 - 2.3 mg/dL) 1.3 L Total Bilirubin (0.2 - 1.3 mg/dL) 4.2 H Direct Bilirubin (< 0.4 mg/dL) 2.5 H AST (17 - 59 U/L) 112 H ALT (21 - 72 U/L) 55 Alkaline Phosphatase (< 127 U/L) 200 H Ammonia (9 - 30 umol/L) 24 Troponin I (<0.11 ng/ml) 0.05 Total Protein (6.3 - 8.2 g/dL) 6.7 Albumin (3.5 - 5.0 g/dL) 3.2 L Amylase (30 - 110 U/L) 94 Lipase (23 - 300 U/L) 405 H Vitamin B12 (239 - 931 pg/mL) 560 Folate (2.76 - 20.0 ng/mL) 4.0 TSH (0.270 - 4.200 uIU/mL) 8.960 H Free T4 (0.64 - 1.79 ng/dL) 1.85 H Coagulation PT (9.4 - 12.5 SEC) 17.3 H INR (0.90 - 1.17) 1.66 H APTT (25 - 37 SEC) 34 Toxicology Urine Opiates Screen (>2000 NG/ML) 174.00 Methadone Screen (>300 NG/ML) < 40 Barbiturate Screen (>200 NG/ML) < 60 Ur Phencyclidine Scrn (>25 NG/ML) < 6.00 Amphetamines Screen (>1000 NG/ML) < 100 U Benzodiazepines Scrn (>200 NG/ML) < 85 Urine Cocaine Screen (>300 NG/ML) < 50 Urine Cannabis Screen (>50 NG/ML) 5.90 Serum Alcohol (<10 MG/DL) 86.0 Urines Urinalysis LIGHT H Urine Color (YEL,AMB,STR) ORANG H Urine Clarity (CLEAR) HAZY H Urine pH (5.0 - 8.0) 5.5 Ur Specific [place] (1.001 - 1.035) >= 1.030 Urine Protein (NEG,<30 MG/DL) 100 H Urine Ketones (NEG) 15 H Urine Nitrite (NEG) POS H Urine Bilirubin (NEG) POS@ICTO H Urine Urobilinogen (0.1 - 1.0 EU/dl) 2.0 H Ur Leukocyte Esterase (NEG) NEG Ur Microscopic SEDIMENT EXAMINED Urine RBC (0 - 5 /HPF) 3-5 Urine WBC (0 - 2 /HPF) 3-5 H Ur Epithelial Cells (NONE,FEW) MOD H Urine Crystals 1+ UR AC H Granular Casts (NONE /LPF) 1-3 H Urine Mucus (FEW,NONE) MANY H Urine Hemoglobin (NEG) NEG Urine Glucose (N MG/DL) NEG 04/22 04/22 04/22 0200 0200 0130 Chemistry Troponin I Cancelled Hematology CBC w Diff NO MAN DIFF REQ WBC (4.8 - 10.8 /CUMM) 7.7 RBC (4.70 - 6.10 /CUMM) 3.91 L Hgb (14.0 - 18.0 G/DL) 12.7 L Hct (42 - 52 %) 38.0 L MCV (80.0 - 94.0 FL) 97.2 H MCH (27.0 - 31.0 PG) 32.5 H RDW (11.5 - 14.5 %) 15.9 H Plt Count (130 - 400 /CUMM) 229 MPV (7.4 - 10.4 FL) 8.8 Gran % (42.2 - 75.2 %) 82.7 H Lymphocytes % (20.5 - 51.1 %) 7.7 L Monocytes % (1.7 - 9.3 %) 9.4 H Eosinophils % (0 - 5 %) 0 Basophils % (0.0 - 2.0 %) 0.2 % Normal PMNs (%) 96 PUBS MCHC (33.0 - 37.0 G/DL) 33.4 Immunology Absolute Granulocytes (1.4 - 6.5 /CUMM) 6.4 Absolute Lymphocytes (1.2 - 3.4 /CUMM) 0.6 L Absolute Monocytes (0.10 - 0.60 /CUMM) 0.7 H Absolute Eosinophils (0.0 - 0.7 /CUMM) 0 Absolute Basophils (0.0 - 0.2 /CUMM) 0 Other Body Source Fluid WBC (0 - 5 /CUMM) 9504 H Fld Mesothelial Cells (%) 4 Fld Total RBCs Counted (0 /CUMM) 2156 H Fluid Total Protein (g/dL) < 2.0 Fluid Albumin (g/dL) < 1.0 Assessment/Plan Assessment/Plan 50yo M POD#0 s/p exploratory laparoscopy with grahm plication of duodenal ulcer and core liver biopsy. - NPO - NGT to [facility] - continue abx - TPN to start tomorrow - continue CONNIE drains to bulb suction - Strict I/O's - monitor urine output - reinforce or change CONNIE drain dressings PRN - care per critical care team Core Measures/Miscellaneous Venous Thromboembolism VTE Risk Factors: Acute medical illness, Age > 40, Obesity, Surgery VTE Contraindications: Abn Clotting Times VTE Prophylaxis Ordered Inpt Mechanical (ALPS/TEDS) VTE Diagnosis: No VTE Type: NONE VTE Confirmed by (Test): NONE Beta Terrence Is Beta Terrecne a Home Med? Yes If Yes, Was This Ordered Today? No If No, Why Not? hypotension Antibiotics Is Patient on Antibiotics? Yes If Yes: infection
--- NOTE | 2016-04-22 23:19 | NUR ---
RUST COLOR BLOOD OUTPUT VIA NGT. MARIANA LOPEZ MADE AWARE. NO NEW ORDERS AT THIS TIME.
--- NOTE | 2016-04-22 23:43 | NUR ---
MD TSANG MADE AWARE LOW URINE OUTPUT, 20ML FOR THE LAST HOUR. NO NEW ORDERS AT THIS TIME.
[2016-04-23] VITALS (13 sets, daily range): BP systolic 92–112; BP diastolic 00–64
[2016-04-23 05:11] LABS: ABSOLUTE BASOPHIL COUNT 0 /CUMM (0.0-0.2); ABSOLUTE EOSINOPHIL COUNT 0 /CUMM (0.0-0.7); ABSOLUTE GRANULOCYTE CT 6.3 /CUMM (1.4-6.5); ABSOLUTE LYMPH COUNT 0.5 /CUMM (1.2-3.4); BASOPHIL % 0.2 % (0.0-2.0); EOSINOPHIL % 0.1 % (0-5); GRANULOCYTE % 80.6 % (42.2-75.2); MEAN CORPUSCULAR HGB 32.3 PG (27.0-31.0); MEAN CORPUSCULAR HGB CONC 32.3 G/DL (33.0-37.0); MEAN CORPUSCULAR VOLUME 99.9 FL (80.0-94.0); MEAN PLATELET VOLUME 8.2 FL (7.4-10.4); PLATELET COUNT 138 /CUMM (130-400); WHITE BLOOD CELL COUNT 7.8 /CUMM (4.8-10.8)
--- NOTE | 2016-04-23 05:29 | PN- General Surgery ---
Surgical Brief Attending Note Brief Attending Note: pt has made good progress overnight well perfused with adequate urine output and able to wean from pressors to 0.4 of Levophed with good BP skin is warm and dry intubated and sedated I spoke with his mother at bedside and explained interoperative findings and pt prognosis will start TPN today NPO, NGT, CONNIE serous pt on ceftriaxone and Flagyl for gram negative rods
--- NOTE | 2016-04-23 06:01 | PN- General Surgery ---
Subjective Subjective: Patient remains intubated and in critical condition. He is POD#1 s/p exploratory laparoscopy with grahm plication of duodenal ulcer and core liver biopsy. He is no longer receiving propofol. Remains on 1 pressor. CONNIE drain sites continue leak around tubes. NAEO. Objective Vital Signs and I&Os Vital Signs Date Time Temp Pulse Resp B/P Pulse O2 O2 Flow FiO2 Ox Delivery Rate 04/23 0549 98.0 88 18 102/47 04/23 0442 97.9 92 18 108/42 04/23 0400 97.9 86 18 98/00 04/23 0400 97 Ventilator 55% 04/23 0320 55 04/23 0200 98.3 78 18 92/39 04/23 0045 55 04/23 0000 98.3 80 18 96/00 04/23 0000 98.3 80 18 96/00 97 Ventilator 55% 04/23 0000 97 Ventilator 55% 04/22 2239 82 105/43 04/22 2211 55 04/22 2200 98.6 82 18 98/40 04/22 2000 98.6 88 18 108/55 04/22 2000 95 Ventilator 55% 04/22 1900 55 04/22 1630 96.7 85 22 119/62 04/22 1630 97 Ventilator 65% 04/22 1630 96.7 85 22 119/62 97 Ventilator 65% 04/22 1610 80 04/22 1401 Ventilator 80% 04/22 1320 80 04/22 1200 96.7 70 28 118/60 04/22 1200 99 Ventilator 80% 04/22 1040 100 04/22 1002 100 95/56 04/22 1000 97.6 100 16 95/56 04/22 0846 97.6 101 16 82/65 04/22 0846 95 Nasal 2.0L Cannula 04/22 0846 97.6 101 16 82/65 95 Nasal 2.0L Cannula 04/22 0739 98.2 105 18 110/66 04/22 0637 99.0 112 18 105/58 93 Nasal 2.0L Cannula Intake & Output 04/23 0800 04/23 0000 04/22 1600 04/22 0800 04/22 0000 04/21 1600 Intake Total 1735 4029 Output Total 1435 400 300 Balance 300 3629 -300 Intake, Blood 613 Product Intake, IV 1735 3416 Intake, Oral 0 Output, 910 Drainage Output, 150 100 300 Gastric Drainage Output, Urine 375 300 Patient 300 lb 300 lb Weight Physical Exam: Gen: Intubated, sedated Lungs: ventilated with good air movement and chest expansion CV: RRR Abd: Mild firmness, distended. Incision site dressings c/d/i. CONNIE drain x3 with serosanguinous drainage and drain dressings saturated. Ext: BLE with 3+ edema, warm, no calve swelling. 1+ DP BLE. Current Medications: Current Medications Sig/Roberto Start time Last Medication Dose Route Stop Time Status Admin Albumin Human 12.5 GM ONCE ONE 04/22 1000 DC 04/22 IV 04/22 1001 1027 Albumin Human 25 GM Q8 04/22 0700 AC 04/23 IV 0518 Albuterol Sulfate 3 ML Q4P PRN 04/22 1145 AC 04/22 INH 1134 Ceftazidime 2,000 MG Q12 04/22 2200 CAN IV Ceftazidime 2,000 MG Q12H 04/22 1730 AC 04/23 IV 0446 Ceftazidime 2,000 MG Q12 04/22 1525 DC 04/22 IV 1735 Ceftriaxone Sodium 1,000 MG DAILY 04/23 1000 CAN IV Cyanocobalamin/ 1 BAG ONCE ONE 04/22 0545 DC 04/22 Thiamine/Pyridoxine IV 04/22 1344 0610 Sodium Chloride 1,000 ML Dextrose 25 GM ONCE ONE 04/22 1145 DC 04/22 IV 04/22 1146 1144 Dextrose 25 GM ONCE ONE 04/22 0600 DC 04/22 IV 04/22 0601 0610 Fentanyl Citrate 250 MCG .STK-MED ONE 04/22 1158 DC IM 04/22 1159 Fentanyl Citrate 1,000 MCG Q24H 04/22 1030 04/22 Dextrose/Water 250 ML IV 2239 Hydromorphone HCl 1 MG ONCE ONE 04/22 0930 DC 04/22 IV 04/22 0931 0934 Hydromorphone HCl 2 MG Q6P PRN 04/22 0930 AC IV Insulin Human Regular 10 UNITS ONCE ONE 04/22 1145 DC 04/22 IV 04/22 1146 1143 Insulin Human Regular 10 UNITS ONCE ONE 04/22 0600 DC 04/22 IV 04/22 0601 0610 Lidocaine 20 ML .STK-MED ONE 04/22 1032 DC IA 04/22 1033 Lisinopril 20 MG DAILY 04/22 1000 CAN PO Lorazepam 5 MG ONE ONE 04/22 1100 DC 04/22 IV 04/22 1101 1145 Lorazepam 0 Q1P PRN 04/22 0700 AC 04/23 IV 0547 Magnesium Sulfate 1 GM .STK-MED ONE 04/22 1109 DC IV 04/22 1110 Magnesium Sulfate 1 GM .STK-MED ONE 04/22 1007 DC IV 04/22 1008 Magnesium Sulfate 1 GM Q2H 04/22 1000 DC 04/22 Dextrose/Water 100 ML IV 04/22 1359 1123 Metoprolol Succinate 25 MG DAILY 04/22 1000 CAN PO Metoprolol Succinate 25 MG DAILY 04/22 1000 CAN PO Metronidazole 500 MG Q8H 04/22 1300 AC 04/23 N/A 1 UNIT IV 0444 Morphine Sulfate 0 .STK-MED ONE 04/22 0745 DC .ROUTE Morphine Sulfate 2 MG Q3P PRN 04/22 0615 DC 04/22 IV 0748 Non-Formulary 0 SEE ADMIN CRITERIA 04/22 1700 CAN Medication ANY Non-Formulary 0 SEE ADMIN CRITERIA 04/22 1100 DC Medication ANY Norepinephrine 4 MG Q24H 04/22 1000 AC 04/22 Sodium Chloride 250 ML IV 2239 Norepinephrine 4 MG .STK-MED ONE 04/22 0953 DC IV 04/22 0954 Ondansetron HCl 4 MG Q8P PRN 04/22 0600 AC IV Pantoprazole Sodium 40 MG BID 04/22 2200 AC 04/22 IV 2126 Pantoprazole Sodium 40 MG DAILY 04/22 1000 DC IV Propofol 1,000 MG Q24H 04/22 1715 AC 04/23 N/A 100 ML IV 0211 Propofol 1,000 MG .STK-MED ONE 04/22 1255 DC IV 04/22 1256 Propofol 1,000 MG Q24H 04/22 1100 DC 04/22 N/A 100 ML IV 1144 Propofol 1,000 MG .STK-MED ONE 04/22 1021 DC IV 04/22 1022 Sodium Chloride 1,000 ML Q8H 04/23 0115 AC 04/23 IV 04/23 0914 0122 Sodium Chloride 500 ML BOLUS ONE 04/22 1200 DC 04/22 IV 04/22 1259 1154 Sodium Chloride 500 ML BOLUS ONE 04/22 0945 DC 04/22 IV 04/22 1044 1031 Sodium Chloride 1,000 ML Q20H 04/22 0830 DC 04/22 IV 04/22 1629 0826 Sodium Chloride 1,000 ML BOLUS ONE 04/22 0600 DC IV 04/22 0659 Thiamine HCl 0 .STK-MED ONE 04/22 0557 DC .ROUTE Vancomycin HCl 2,000 MG DAILY 04/22 1019 DC Sodium Chloride 250 ML IV Vancomycin HCl 2,000 MG DAILY 04/22 1000 AC 04/22 Sodium Chloride 500 ML IV 1153 Vasopressin 40 UNIT Q16H 04/22 1130 DC 04/22 Dextrose/Water 100 ML IV 1144 Vasopressin 40 UNITS .STK-MED ONE 04/22 1043 DC IM 04/22 1044 Results Last 48 Hours of Labs: Laboratory Tests 04/23 04/23 04/22 0400 0025 1830 Blood Gas pH (7.35 - 7.45 PH) 7.42 7.44 pCO2 (35 - 45 TORR) 41 35 pO2 (80 - 100 TORR) 100 125 H HCO3 (21 - 28 MEQ/L) 26 24 ABG O2 Sat (Measured) (>96.0 %) 97.0 98.0 P-50 (Temp Corrected) Y Y Carboxyhemoglobin (1.5 - 5.0 %) 0.3 L 0.1 L O2 Concentration % 55% 65 Temperature (97.0 - 100.0 FARH) 98.3 96.7 L Respiration Rate (BPM) 18 22 O2 Delivery Method ESPRIT ESPRIT Vent Mode AC AC Expiratory Pressure (CMH2O/P) 5 5 Tidal Volume (CC) 550 550 Chemistry Sodium (137 - 145 mmol/L) 135 L Potassium (3.5 - 5.1 mmol/L) 4.4 Chloride (98 - 107 mmol/L) 101 Carbon Dioxide (22 - 30 mmol/L) 26 Anion Gap (5 - 16) 8 BUN (9 - 20 mg/dL) 22 H Creatinine (0.7 - 1.2 mg/dL) 1.2 Estimated GFR (>60 ml/min) > 60 Glucose (65 - 99 mg/dL) 87 Calcium (8.4 - 10.2 mg/dL) 7.4 L Phosphorus (2.5 - 4.5 mg/dL) 4.1 Magnesium (1.6 - 2.3 mg/dL) 1.7 Total Bilirubin (0.2 - 1.3 mg/dL) 3.5 H AST (17 - 59 U/L) 73 H ALT (21 - 72 U/L) 45 Albumin (3.5 - 5.0 g/dL) 2.6 L Hematology CBC w Diff NO MAN DIFF REQ WBC (4.8 - 10.8 /CUMM) 7.8 RBC (4.70 - 6.10 /CUMM) 2.70 L Hgb (14.0 - 18.0 G/DL) 8.7 L Hct (42 - 52 %) 27.0 L MCV (80.0 - 94.0 FL) 99.9 H MCH (27.0 - 31.0 PG) 32.3 H RDW (11.5 - 14.5 %) 16.0 H Plt Count (130 - 400 /CUMM) 138 MPV (7.4 - 10.4 FL) 8.2 Gran % (42.2 - 75.2 %) 80.6 H Lymphocytes % (20.5 - 51.1 %) 6.9 L Monocytes % (1.7 - 9.3 %) 12.2 H Eosinophils % (0 - 5 %) 0.1 Basophils % (0.0 - 2.0 %) 0.2 PUBS MCHC (33.0 - 37.0 G/DL) 32.3 L Immunology Absolute Granulocytes (1.4 - 6.5 /CUMM) 6.3 Absolute Lymphocytes (1.2 - 3.4 /CUMM) 0.5 L Absolute Monocytes (0.10 - 0.60 /CUMM) 1.0 H Absolute Eosinophils (0.0 - 0.7 /CUMM) 0 Absolute Basophils (0.0 - 0.2 /CUMM) 0 Miscellaneous Phlebotomy Draw Site [facility] 04/22 04/22 4104 1305 Blood Gas pH (7.35 - 7.45 PH) 7.46 H pCO2 (35 - 45 TORR) 27 L pO2 (80 - 100 TORR) 160 H HCO3 (21 - 28 MEQ/L) 19 L ABG O2 Sat (Measured) (>96.0 %) 98.0 Carboxyhemoglobin (1.5 - 5.0 %) 0.6 L O2 Concentration % 80% Respiration Rate (BPM) 28 O2 Delivery Method VENT Vent Mode AC Expiratory Pressure (CMH2O/P) 5 Tidal Volume (CC) 550 Chemistry Sodium (137 - 145 mmol/L) 133 L Potassium (3.5 - 5.1 mmol/L) 4.8 Chloride (98 - 107 mmol/L) 97 L Carbon Dioxide (22 - 30 mmol/L) 25 Anion Gap (5 - 16) 11 BUN (9 - 20 mg/dL) 19 Creatinine (0.7 - 1.2 mg/dL) 1.3 H Estimated GFR (>60 ml/min) 59 L Glucose (65 - 99 mg/dL) 139 H Calcium (8.4 - 10.2 mg/dL) 7.7 L Phosphorus (2.5 - 4.5 mg/dL) 4.1 Magnesium (1.6 - 2.3 mg/dL) 1.6 Total Bilirubin (0.2 - 1.3 mg/dL) 4.0 H AST (17 - 59 U/L) 85 H ALT (21 - 72 U/L) 45 Albumin (3.5 - 5.0 g/dL) 2.8 L Hematology CBC w Diff NO MAN DIFF REQ WBC (4.8 - 10.8 /CUMM) 6.9 RBC (4.70 - 6.10 /CUMM) 2.77 L Hgb (14.0 - 18.0 G/DL) 9.0 L Hct (42 - 52 %) 27.2 L MCV (80.0 - 94.0 FL) 98.0 H MCH (27.0 - 31.0 PG) 32.5 H RDW (11.5 - 14.5 %) 15.7 H Plt Count (130 - 400 /CUMM) 137 MPV (7.4 - 10.4 FL) 7.4 Gran % (42.2 - 75.2 %) 86.6 H Lymphocytes % (20.5 - 51.1 %) 5.4 L Monocytes % (1.7 - 9.3 %) 7.9 Eosinophils % (0 - 5 %) 0 Basophils % (0.0 - 2.0 %) 0.1 PUBS MCHC (33.0 - 37.0 G/DL) 33.2 Immunology Absolute Granulocytes (1.4 - 6.5 /CUMM) 6.0 Absolute Lymphocytes (1.2 - 3.4 /CUMM) 0.4 L Absolute Monocytes (0.10 - 0.60 /CUMM) 0.5 Absolute Eosinophils (0.0 - 0.7 /CUMM) 0 Absolute Basophils (0.0 - 0.2 /CUMM) 0 Miscellaneous Phlebotomy Draw Site LEFT RADIAL 04/22 04/22 04/22 04/22 1200 1138 1000 0952 Blood Gas pH (7.35 - 7.45 PH) 7.28 *L pCO2 (35 - 45 TORR) 49 H pO2 (80 - 100 TORR) 91 HCO3 (21 - 28 MEQ/L) 22 ABG O2 Sat (Measured) (>96.0 %) 94.0 L Carboxyhemoglobin (1.5 - 5.0 %) 1.2 L O2 Concentration % 3L O2 Delivery Method NC Chemistry Sodium (137 - 145 mmol/L) Cancelled 135 L Potassium (3.5 - 5.1 mmol/L) Cancelled 5.9 H Chloride (98 - 107 mmol/L) Cancelled 96 L Carbon Dioxide (22 - 30 mmol/L) Cancelled 26 Anion Gap (5 - 16) Cancelled 14 BUN (9 - 20 mg/dL) Cancelled 18 Creatinine (0.7 - 1.2 mg/dL) Cancelled 1.7 H Estimated GFR (>60 ml/min) 43 L Glucose (65 - 99 mg/dL) Cancelled 114 H Calcium (8.4 - 10.2 mg/dL) Cancelled 8.2 L Phosphorus (2.5 - 4.5 mg/dL) Cancelled 5.5 H Magnesium (1.6 - 2.3 mg/dL) Cancelled 1.4 L Total Bilirubin (0.2 - 1.3 mg/dL) Cancelled 4.8 H AST (17 - 59 U/L) Cancelled 94 H ALT (21 - 72 U/L) Cancelled 39 Albumin (3.5 - 5.0 g/dL) Cancelled 3.2 L Hematology CBC w Diff Cancelled Cancelled WBC Cancelled Cancelled RBC Cancelled Cancelled Hgb Cancelled Cancelled Hct Cancelled Cancelled MCV Cancelled Cancelled MCH Cancelled Cancelled RDW Cancelled Cancelled Plt Count Cancelled Cancelled MPV Cancelled Cancelled PUBS MCHC Cancelled Cancelled Miscellaneous Phlebotomy Draw Site LEFT RADIAL 04/22 04/22 4345 1766 Chemistry Sodium (137 - 145 mmol/L) 135 L Potassium (3.5 - 5.1 mmol/L) 5.8 H Chloride (98 - 107 mmol/L) 94 L Carbon Dioxide (22 - 30 mmol/L) 26 Anion Gap (5 - 16) 14 BUN (9 - 20 mg/dL) 19 Creatinine (0.7 - 1.2 mg/dL) 1.7 H Estimated GFR (>60 ml/min) 43 L BUN/Creatinine Ratio (7 - 25 %) 11.2 Lactic Acid (0.7 - 2.1 mmol/L) 4.1 H 5.3 H Total Bilirubin (0.2 - 1.3 mg/dL) 4.7 H Direct Bilirubin (< 0.4 mg/dL) 3.0 H AST (17 - 59 U/L) 95 H ALT (21 - 72 U/L) 48 Alkaline Phosphatase (< 127 U/L) 152 H Total Protein (6.3 - 8.2 g/dL) 6.5 Albumin (3.5 - 5.0 g/dL) 3.2 L Coagulation PT (9.4 - 12.5 SEC) 17.6 H INR (0.90 - 1.17) 1.67 H Hematology CBC w Diff MAN DIFF ORDERED WBC (4.8 - 10.8 /CUMM) 11.6 H RBC (4.70 - 6.10 /CUMM) 3.51 L Hgb (14.0 - 18.0 G/DL) 11.4 L Hct (42 - 52 %) 34.9 L MCV (80.0 - 94.0 FL) 99.5 H MCH (27.0 - 31.0 PG) 32.4 H RDW (11.5 - 14.5 %) 15.6 H Plt Count (130 - 400 /CUMM) 243 MPV (7.4 - 10.4 FL) 7.9 Gran % (42.2 - 75.2 %) 88.4 H Lymphocytes % (20.5 - 51.1 %) 2.4 L Monocytes % (1.7 - 9.3 %) 9.2 Eosinophils % (0 - 5 %) 0 Basophils % (0.0 - 2.0 %) 0 L Segmented Neutrophils (42.2 - 75.2 %) 77 H Band Neutrophils (0.0 - 5.0 %) 13 H Lymphocytes (20.5 - 51.1 %) 2 L Monocytes (1.7 - 9.3 %) 8 Platelet Estimate (ADEQUATE) ADEQUATE Normocytic RBCs VERIFIED Normochromic RBCs VERIFIED PUBS MCHC (33.0 - 37.0 G/DL) 32.6 L Immunology Absolute Granulocytes (1.4 - 6.5 /CUMM) 10.3 H Absolute Lymphocytes (1.2 - 3.4 /CUMM) 0.3 L Absolute Monocytes (0.10 - 0.60 /CUMM) 1.1 H Absolute Eosinophils (0.0 - 0.7 /CUMM) 0 Absolute Basophils (0.0 - 0.2 /CUMM) 0 Serology Hepatitis A IgM Ab (NONREACTIVE) NONREACTIVE Hep Bs Antigen (NONREACTIVE) NONREACTIVE Hep B Core IgM Ab Conf (NONREACTIVE) NONREACTIVE Hepatitis C Antibody (NONREACTIVE) NONREACTIVE HIV 1&2 Ab Western Blot (NONREACTIVE) NONREACTIVE Toxicology Acetaminophen (10.0 - 30.0 ug/mL) < 10.0 L 04/22 04/22 04/22 0605 0235 0235 Chemistry Sodium (137 - 145 mmol/L) 133 L Potassium (3.5 - 5.1 mmol/L) 5.4 H Chloride (98 - 107 mmol/L) 93 L Carbon Dioxide (22 - 30 mmol/L) 25 Anion Gap (5 - 16) 15 BUN (9 - 20 mg/dL) 18 Creatinine (0.7 - 1.2 mg/dL) 0.9 Estimated GFR (>60 ml/min) > 60 BUN/Creatinine Ratio (7 - 25 %) 20.0 Glucose (65 - 99 mg/dL) 148 H Lactic Acid (0.7 - 2.1 mmol/L) 3.3 H Calcium (8.4 - 10.2 mg/dL) 8.7 Magnesium (1.6 - 2.3 mg/dL) 1.3 L Total Bilirubin (0.2 - 1.3 mg/dL) 4.2 H Direct Bilirubin (< 0.4 mg/dL) 2.5 H AST (17 - 59 U/L) 112 H ALT (21 - 72 U/L) 55 Alkaline Phosphatase (< 127 U/L) 200 H Ammonia (9 - 30 umol/L) 24 Troponin I (<0.11 ng/ml) 0.05 Total Protein (6.3 - 8.2 g/dL) 6.7 Albumin (3.5 - 5.0 g/dL) 3.2 L Amylase (30 - 110 U/L) 94 Lipase (23 - 300 U/L) 405 H Vitamin B12 (239 - 931 pg/mL) 560 Folate (2.76 - 20.0 ng/mL) 4.0 TSH (0.270 - 4.200 uIU/mL) 8.960 H Free T4 (0.64 - 1.79 ng/dL) 1.85 H Coagulation PT (9.4 - 12.5 SEC) 17.3 H INR (0.90 - 1.17) 1.66 H APTT (25 - 37 SEC) 34 Toxicology Urine Opiates Screen (>2000 NG/ML) 174.00 Methadone Screen (>300 NG/ML) < 40 Barbiturate Screen (>200 NG/ML) < 60 Ur Phencyclidine Scrn (>25 NG/ML) < 6.00 Amphetamines Screen (>1000 NG/ML) < 100 U Benzodiazepines Scrn (>200 NG/ML) < 85 Urine Cocaine Screen (>300 NG/ML) < 50 Urine Cannabis Screen (>50 NG/ML) 5.90 Serum Alcohol (<10 MG/DL) 86.0 Urines Urinalysis LIGHT H Urine Color (YEL,AMB,STR) ORANG H Urine Clarity (CLEAR) HAZY H Urine pH (5.0 - 8.0) 5.5 Ur Specific [place] (1.001 - 1.035) >= 1.030 Urine Protein (NEG,<30 MG/DL) 100 H Urine Ketones (NEG) 15 H Urine Nitrite (NEG) POS H Urine Bilirubin (NEG) POS@ICTO H Urine Urobilinogen (0.1 - 1.0 EU/dl) 2.0 H Ur Leukocyte Esterase (NEG) NEG Ur Microscopic SEDIMENT EXAMINED Urine RBC (0 - 5 /HPF) 3-5 Urine WBC (0 - 2 /HPF) 3-5 H Ur Epithelial Cells (NONE,FEW) MOD H Urine Crystals 1+ UR AC H Granular Casts (NONE /LPF) 1-3 H Urine Mucus (FEW,NONE) MANY H Urine Hemoglobin (NEG) NEG Urine Glucose (N MG/DL) NEG 04/22 04/22 04/22 0200 0200 0130 Chemistry Troponin I Cancelled Hematology CBC w Diff NO MAN DIFF REQ WBC (4.8 - 10.8 /CUMM) 7.7 RBC (4.70 - 6.10 /CUMM) 3.91 L Hgb (14.0 - 18.0 G/DL) 12.7 L Hct (42 - 52 %) 38.0 L MCV (80.0 - 94.0 FL) 97.2 H MCH (27.0 - 31.0 PG) 32.5 H RDW (11.5 - 14.5 %) 15.9 H Plt Count (130 - 400 /CUMM) 229 MPV (7.4 - 10.4 FL) 8.8 Gran % (42.2 - 75.2 %) 82.7 H Lymphocytes % (20.5 - 51.1 %) 7.7 L Monocytes % (1.7 - 9.3 %) 9.4 H Eosinophils % (0 - 5 %) 0 Basophils % (0.0 - 2.0 %) 0.2 % Normal PMNs (%) 96 PUBS MCHC (33.0 - 37.0 G/DL) 33.4 Immunology Absolute Granulocytes (1.4 - 6.5 /CUMM) 6.4 Absolute Lymphocytes (1.2 - 3.4 /CUMM) 0.6 L Absolute Monocytes (0.10 - 0.60 /CUMM) 0.7 H Absolute Eosinophils (0.0 - 0.7 /CUMM) 0 Absolute Basophils (0.0 - 0.2 /CUMM) 0 Other Body Source Fluid WBC (0 - 5 /CUMM) 9504 H Fld Mesothelial Cells (%) 4 Fld Total RBCs Counted (0 /CUMM) 2156 H Fluid Total Protein (g/dL) < 2.0 Fluid Albumin (g/dL) < 1.0 Assessment/Plan Assessment/Plan 50yo M POD#1 s/p exploratory laparoscopy with grahm plication of duodenal ulcer and core liver biopsy. - NPO - NGT to LWS - continue abx - TPN to start today - continue CONNIE drains to bulb suction, reinforce or change dressings PRN - Strict I/O's - monitor urine output - care per critical care team Core Measures/Miscellaneous Venous Thromboembolism VTE Risk Factors: Acute medical illness, Age > 40, Obesity, Surgery VTE Contraindications: Abn Clotting Times VTE Prophylaxis Ordered Inpt Mechanical (ALPS/TEDS) VTE Diagnosis: No VTE Type: NONE VTE Confirmed by (Test): NONE Beta Terrence Is Beta Terrence a Home Med? Yes If Yes, Was This Ordered Today? No If No, Why Not? hypotension Antibiotics Is Patient on Antibiotics? Yes If Yes: infection
--- NOTE | 2016-04-23 06:15 | PN- Resident CRCU ---
Subjective HPI/CRCU Issues: patient is a 50 y/o Male, with a significant past medical history of hypertension, hyperlipidemia, GERD, diverticulosis, degenerative joint disease, a vascular necrosis status post hip replacement, fatty liver disease, alcohol abuse presented with chronic alcohol abuse, nausea, vomting, abd distension and pain which got worse so he presented to ED on 04/21/2016. On Evaluation CT scan showed pneumoperitoneum, moderate ascites.On examination the abdomen was distended and tender to palpation , so diagnostic paracentesis was done which showed WBC 9504, RBC 2156. Because of the perforation, It seems that patient developed the secondary bacterial peritonitis. We took surgical consultation. The next couple of hours patient went into septicemia and shock. So he was given IV fluids and prophylactic antibiotics including ceftriaxone metronidazole and vancomycin. We catheterized the patient. Despite of these measures his blood pressure going down , so we took surgical consultation and plan for emergent surgery. Meantime, we intubated the patient and put him on mechanical ventilation(assist control mode, TV-500, respiratory rate 28, PEEP 5, FiO2 100%), triple-lumen catheter was placed in the right side of jugular vein. Patients blood pressure was continuosly going down, so we started him on Levothroid/vasopressin. We also started him on fentanyl and propofol drip. The culture of the ascites fluid came back positive for gram-negative. We took the consult from infectious disease specialist/Abdullahi Osuna MD. He advised to change ceftriaxone to ceftazidime and advised to wait for sensitivities report. Patient went to surgery on 04/22/2016. In postop, His blood pressure was 119/62. He is improving after surgery. We are decreasing the amount of pressers required to keep his blood pressure normal. CRCU Issues - POD -2 Perforated duodenal ulcer s/p exploratory laparoscopy with grahm plication of duodenal ulcer Secondary bacterial Peritonitis Septic shock with MODS/ MATT improving/ Lactic acidosis improving/ Alcoholic hepatitis with transaminitis Ascitis Sigmoid Diverticulitis Hypertension Hyperlipidemia Morbidly Obese 24 Hour Events: Overnight, was uneventful. He is responding to the vasopressor, we are decreasing the amount of vasopressor to keep the blood pressure to normal. Objective Vital Signs & I&O Last 8 Hrs of Vitals and I&O: Intake & Output 04/23 0800 Intake Total 1369 Output Total 1670 Balance -301 Intake, IV 1369 Intake, Oral 0 Number 0 Bowel Movements Output, 1355 Drainage Output, 100 Gastric Drainage Output, Urine 215 Max Min BP 116/52 98/40 HR 80 90 Temp 97.9 98.3 RR 18 18 Exam General Appearance: well developed/nourished, no apparent distress, awake, anxious, comfortable, sedated Head: atraumatic, normal appearance Ears, Nose, Throat: patient is on ventilator, having and a tracheal intubation and mouth piece/airway so cannot be examined Neck: supple, right-sided internal jugular catheter Respiratory: normal breath sounds, chest non-tender, no respiratory distress, quiet respiration, lungs clear Cardiovascular: regular rate/rhythm, edema Gastrointestinal: soft, non-tender, there is a drain placed on the left side Extremities: swelling Current Medications: Current Medications Sig/Roberto Start time Last Medication Dose Route Stop Time Status Admin Albumin Human 25 GM Q8 04/22 0700 04/23 IV 1534 Albuterol Sulfate 3 ML Q4P PRN 04/22 1145 04/22 INH 1134 Ceftazidime 2,000 MG Q12H 04/22 1730 CA 04/23 IV 0446 Cyanocobalamin/ 1 BAG ONCE ONE 04/23 1330 04/23 Thiamine/Pyridoxine IV 04/24 0249 1407 Dextrose/Water 1,000 ML Fat Emulsion 250 ML 1900 04/23 1900 04/23 Intravenous IV 04/24 1859 1857 Fentanyl Citrate 1,000 MCG Q24H 04/22 1030 04/23 Dextrose/Water 250 ML IV 1534 Hydromorphone HCl 2 MG Q6P PRN 04/22 0930 IV Lorazepam 50 MG Q24H 04/23 1315 04/23 Sodium Chloride 500 ML IV 1407 Lorazepam 50 MG Q24H 04/23 0745 CA 04/23 Dextrose/Water 500 ML IV 0750 Lorazepam 50 MG ONCE ONE 04/23 0700 CAN Sodium Chloride 500 ML IV 04/24 0659 Lorazepam 0 Q1P PRN 04/22 0700 04/23 IV 0547 Magnesium Sulfate 1 GM ONCE ONE 04/23 0845 CA 04/23 Dextrose/Water 100 ML IV 04/23 1244 0951 Magnesium Sulfate 1 GM ONCE ONE 04/23 0800 DC 04/23 Dextrose/Water 100 ML IV 04/23 1159 0822 Meropenem 1 GM IQ8 04/23 1600 AC 04/23 IV 1533 Metronidazole 500 MG Q8H 04/22 1300 DC 04/23 N/A 1 UNIT IV 0444 Norepinephrine 4 MG Q24H 04/22 1000 AC 04/23 Sodium Chloride 250 ML IV 1718 Ondansetron HCl 4 MG Q8P PRN 04/22 0600 AC IV Pantoprazole Sodium 40 MG BID 04/22 2200 AC 04/23 IV 0906 Phytonadione 10 MG ONE ONE 04/23 1415 DC 04/23 SC 04/23 1416 1435 Phytonadione 1 MG ONE ONE 04/23 1315 CAN SC 04/23 1316 Propofol 1,000 MG Q24H 04/22 1715 DC 04/23 N/A 100 ML IV 0211 Sodium Chloride 1,000 ML Q8H 04/23 0115 AC 04/23 IV 0824 Total Parenteral 1 UNIT ONE 04/23 1900 AC 04/23 Nutrition IV 04/24 1859 1857 Vancomycin HCl 2,000 MG DAILY 04/22 1000 DC 04/23 Sodium Chloride 500 ML IV 1032 Impression/Plan Impression/Problem List Impression: Impression and Plan - Patient is arousable, responding to command, c/o pain. He is on fentanyl drip, and levofed. POD-2 Ventilator -D2 Left Radial artery line, CONNIE drains-3 - D2 Foleys cathter -D2 Respiratory He is on ventilator, Ventilator Settings is -AC, TV-550, IPAP -24, RR-18, PEEP-5 wheezing in both lungs ABG showed -PH-7.4,PCo2-41,PO2-100, CXR showed - 1. Endotracheal tube in satisfactory position at 5 cm above the ching. 2. Increased discoid atelectasis in the right lung base compared to 04/22/2016 Infectious Ascitic fluids is growing -Gr -ve rods and Gr +ve cocci, alpha strept. We will follow ID rcms We will stop ceftazidime and Vancomycin, and start him on Meopenem 1g iv 8hrly. Hematology - Hb-8.7, Megaloblastic anemia due to alcohol, added up with septicemia and shock We will transfuse one unit of PRBC We will suplement MultiVit, Thiamine, folic acid. Cardiology Patient is responding to vasopressor, we will taper according to protocol. His HR-85 BP -110/62 , EKG is NSR Gastroenterology There are 3 CONNIE drains -550 Abdoman is soft, still no bowel sounds on examiantion We will do strict Intake output Charting We will follow GI rcms Patient is undergoing alcohol withdrawl, we will give Ativan according to [facility] protocol. We will give Vit K for total 3 days. Urology BUN -22 Cr-1.2 Urine output in last 24 hrs is 675cc We will continue IV fluids -75ml/hrs Strict I/O charting Endocrine TSH -8.9, T4 -1.85 It seems patient is having Sick Euthyroid syndrome. We discussed with endocrinology. We will repeat TFT after patient get recovered. Skin There are multiple dressings on the skin including right internal jugular, abdomen for drain, Diet -we started patient on TPN as advised by dietitian. DVT prophylaxis -ALPS CODE STATUS-full code Problem List: 1. Alcoholic hepatitis 2. Ascites 3. Peritonitis 4. Perforation bowel Pain Ratin Pain Location: abdomen Tomorrow's Labs & Rationales: ICU bundle, CBC, chest x-ray, ABG Plan DVT/Prophylaxis: mechanical
--- NOTE | 2016-04-23 07:16 | PN- Student ---
ARIADNA QUICK 04/23/16 0700: Subjective Subjective: Post-op check, POD #1 50 yo man s/p exploratory laparoscopy with em plication of duodenal ulcer and core liver biopsy. No acute events overnight. Patient remains intubated but arounsable. He has not passed flatus or BM. His urine remains tim in color. He has been weaned to 0.4 Levophed with his systolics holding at 90-100s. He has been spotting from his NGT. His 3 CONNIE drains continue to drain serous fluid. Objective Objective: Temp: 98F, HR: 99 bpm, RR: 18 breaths/min, BP: 102/47 Ventilatory setting: Resp rate: 18, peak flow: 65, PEEP: 5, FiO2: 55 I/O: 1369/1670 = -301 IV: 1369 mL, Urine: 215 mL. NGT: 100mL, CONNIE: 1355mL Physical Exam: Gen: Remains sedated but arousable. Skin: wam, dry Cardiac: RRR, S1, S2 present Pulm: ventilated with good air movement, chest expansion Abdomen: mildly distended, firm, hypoactive bowel sounds Surgical sites: [address] with serosanguinous drainage. Dressing clear, dry and intact. No erythema or edema around sites. Extremities: +2 pitting pedal edema, no calve swelling. Results Results: Laboratory Tests 04/23/16 0400: Anion Gap 8, Estimated GFR > 60, Glucose 87, Calcium 7.4 L, Phosphorus 4.1, Magnesium 1.7, Total Bilirubin 3.5 H, AST 73 H, ALT 45, Albumin 2.6 L, CBC w Diff NO MAN DIFF REQ, RBC 2.70 L, MCV 99.9 H, MCH 32.3 H, RDW 16.0 H, MPV 8.2, Gran % 80.6 H, Lymphocytes % 6.9 L, Monocytes % 12.2 H, Eosinophils % 0.1, Basophils % 0.2, PUBS MCHC 32.3 L, Absolute Granulocytes 6.3, Absolute Lymphocytes 0.5 L, Absolute Monocytes 1.0 H, Absolute Eosinophils 0, Absolute Basophils 0 04/23/16 0025: pH 7.42, pCO2 41, pO2 100, HCO3 26, ABG O2 Sat (Measured) 97.0, P-50 (Temp Corrected) Y, Carboxyhemoglobin 0.3 L, O2 Concentration % 55%, Temperature 98.3 , Respiration Rate 18, O2 Delivery Method ESPRIT, Vent Mode AC, Expiratory Pressure 5, Tidal Volume 550, Phlebotomy Draw Site [place] 04/22/16 1830: pH 7.44, pCO2 35, pO2 125 H, HCO3 24, ABG O2 Sat (Measured) 98.0, P-50 (Temp Corrected) Y, Carboxyhemoglobin 0.1 L, O2 Concentration % 65, Temperature 96.7 L, Respiration Rate 22, O2 Delivery Method ESPRIT, Vent Mode AC, Expiratory Pressure 5, Tidal Volume 550, Phlebotomy Draw Site [place] 04/22/16 1737: Anion Gap 11, Estimated GFR 59 L, Glucose 139 H, Calcium 7.7 L, Phosphorus 4.1, Magnesium 1.6, Total Bilirubin 4.0 H, AST 85 H, ALT 45, Albumin 2.8 L, CBC w Diff NO MAN DIFF REQ, RBC 2.77 L, MCV 98.0 H, MCH 32.5 H, RDW 15.7 H, MPV 7.4, Gran % 86.6 H, Lymphocytes % 5.4 L, Monocytes % 7.9, Eosinophils % 0, Basophils % 0.1, PUBS MCHC 33.2, Absolute Granulocytes 6.0, Absolute Lymphocytes 0.4 L, Absolute Monocytes 0.5, Absolute Eosinophils 0, Absolute Basophils 0 04/22/16 1305: pH 7.46 H, pCO2 27 L, pO2 160 H, HCO3 19 L, ABG O2 Sat (Measured) 98.0, Carboxyhemoglobin 0.6 L, O2 Concentration % 80%, Respiration Rate 28, O2 Delivery Method VENT, Vent Mode AC, Expiratory Pressure 5, Tidal Volume 550, Phlebotomy Draw Site LEFT RADIAL 04/22/16 1200: CBC w Diff Cancelled, WBC Cancelled, RBC Cancelled, Hgb Cancelled, Hct Cancelled , MCV Cancelled, MCH Cancelled, RDW Cancelled, Plt Count Cancelled, MPV Cancelled, PUBS MCHC Cancelled 04/22/16 1138: CBC w Diff Cancelled, WBC Cancelled, RBC Cancelled, Hgb Cancelled, Hct Cancelled , MCV Cancelled, MCH Cancelled, RDW Cancelled, Plt Count Cancelled, MPV Cancelled, PUBS MCHC Cancelled 04/22/16 1000: pH 7.28 *L, pCO2 49 H, pO2 91, HCO3 22, ABG O2 Sat (Measured) 94.0 L, Carboxyhemoglobin 1.2 L, O2 Concentration % 3L, O2 Delivery Method NC, Sodium Cancelled, Potassium Cancelled, Chloride Cancelled, Carbon Dioxide Cancelled, Anion Gap Cancelled, BUN Cancelled, Creatinine Cancelled, Glucose Cancelled, Calcium Cancelled, Phosphorus Cancelled, Magnesium Cancelled, Total Bilirubin Cancelled, AST Cancelled, ALT Cancelled, Albumin Cancelled, Phlebotomy Draw Site LEFT RADIAL 04/22/16 0952: Anion Gap 14, Estimated GFR 43 L, Glucose 114 H, Calcium 8.2 L, Phosphorus 5.5 H, Magnesium 1.4 L, Total Bilirubin 4.8 H, AST 94 H, ALT 39, Albumin 3.2 L 04/22/16 0952: Anion Gap 14, Estimated GFR 43 L, BUN/Creatinine Ratio 11.2, Lactic Acid 4.1 H , Total Bilirubin 4.7 H, Direct Bilirubin 3.0 H, AST 95 H, ALT 48, Alkaline Phosphatase 152 H, Total Protein 6.5, Albumin 3.2 L, PT 17.6 H, INR 1.67 H, CBC w Diff MAN DIFF ORDERED, RBC 3.51 L, MCV 99.5 H, MCH 32.4 H, RDW 15.6 H, MPV 7.9, Gran % 88.4 H, Lymphocytes % 2.4 L, Monocytes % 9.2, Eosinophils % 0, Basophils % 0 L, Segmented Neutrophils 77 H, Band Neutrophils 13 H, Lymphocytes 2 L, Monocytes 8, Platelet Estimate ADEQUATE, Normocytic RBCs VERIFIED, Normochromic RBCs VERIFIED, PUBS MCHC 32.6 L, Absolute Granulocytes 10.3 H, Absolute Lymphocytes 0.3 L, Absolute Monocytes 1.1 H, Absolute Eosinophils 0, Absolute Basophils 0, Hepatitis A IgM Ab NONREACTIVE, Hep Bs Antigen NONREACTIVE, Hep B Core IgM Ab Conf NONREACTIVE, Hepatitis C Antibody NONREACTIVE, HIV 1&2 Ab Western Blot NONREACTIVE, Acetaminophen < 10.0 L 04/22/16 0736: Lactic Acid 5.3 H 04/22/16 0605: Urine Opiates Screen 174.00, Methadone Screen < 40, Barbiturate Screen < 60, Ur Phencyclidine Scrn < 6.00, Amphetamines Screen < 100, U Benzodiazepines Scrn < 85, Urine Cocaine Screen < 50, Urine Cannabis Screen 5.90, Urinalysis LIGHT H, Urine Color ORANG H, Urine Clarity HAZY H, Urine pH 5.5, Ur Specific [place] > = 1.030, Urine Protein 100 H, Urine Ketones 15 H, Urine Nitrite POS H, Urine Bilirubin POS@ICTO H, Urine Urobilinogen 2.0 H, Ur Leukocyte Esterase NEG, Ur Microscopic SEDIMENT EXAMINED, Urine RBC 3-5, Urine WBC 3-5 H, Ur Epithelial Cells MOD H, Urine Crystals 1+ UR AC H, Granular Casts 1-3 H, Urine Mucus MANY H, Urine Hemoglobin NEG, Urine Glucose NEG 04/22/16 0235: Ammonia 24 04/22/16 0235: Anion Gap 15, Estimated GFR > 60, BUN/Creatinine Ratio 20.0, Glucose 148 H, Lactic Acid 3.3 H, Calcium 8.7, Magnesium 1.3 L, Total Bilirubin 4.2 H, Direct Bilirubin 2.5 H, AST 112 H, ALT 55, Alkaline Phosphatase 200 H, Troponin I 0.05, Total Protein 6.7, Albumin 3.2 L, Amylase 94, Lipase 405 H, Vitamin B12 560, Folate 4.0, TSH 8.960 H, Free T4 1.85 H, PT 17.3 H, INR 1.66 H, APTT 34, Serum Alcohol 86.0 04/22/16 0200: Fluid WBC 9504 H, Fld Mesothelial Cells 4, Fld Total RBCs Counted 2156 H 04/22/16 0200: % Normal PMNs 96, Fluid Total Protein < 2.0, Fluid Albumin < 1.0 04/22/16 0130: Troponin I Cancelled, CBC w Diff NO MAN DIFF REQ, RBC 3.91 L, MCV 97.2 H, MCH 32.5 H, RDW 15.9 H, MPV 8.8, Gran % 82.7 H, Lymphocytes % 7.7 L, Monocytes % 9.4 H, Eosinophils % 0, Basophils % 0.2, PUBS MCHC 33.4, Absolute Granulocytes 6.4, Absolute Lymphocytes 0.6 L, Absolute Monocytes 0.7 H, Absolute Eosinophils 0, Absolute Basophils 0 Microbiology 04/22 1630 LOWER RESP: Respiratory Culture - RES 04/22 1630 LOWER RESP: Gram Stain - RES 04/22 1450 BODY FLUID: Body Fluid Culture - RECD 04/22 1450 BODY FLUID: Gram Stain - RECD 04/22 1431 TRUNK/O.R.: Culture & Sensitivity - CAN Cancelled: ENTRY ERROR BY OR 04/22 1431 TRUNK/O.R.: Gram Stain - CAN Cancelled: ENTRY ERROR BY OR 04/22 0810 UPPER RESP: Surveillance Culture - RECD 04/22 0810 GI: Surveillance Culture - RECD 04/22 0605 URINE ROUT: Urine Culture - RECD 04/22 0450 BLOOD: Blood Culture - RECD 04/22 0435 BLOOD: Blood Culture - RECD 04/22 0200 BODY FLUID: Body Fluid Culture - RES GRAM NEGATIVE RODS 04/22 0200 BODY FLUID: Gram Stain - RES Assessment/Plan Assessment: Post-op day #1 50 yo man s/p exploratory laparoscopy with em plication of duodenal ulcer and core liver biopsy. Neuro: - Continue sedation with Fentanyl drip - Ativan drip started today for DT ppx - High risk for developing encephalopathy but will be difficult to assess at this time. On alcohol withdrawal precautions/protocol Psych: h/o alcohol dependence, anxiety, depression - On fentanyl drip, to start Ativan drip today MSK: h/o DJD, back pain - on Fentanyl drip Cardiac: h/o hypertension, hyperlipidemia - Continue on Levophed, NS 125mL/hr - IJ central line in place Pulm: - Remain intubated - Follow pulm critical care plan - Monitor AGBGs GI: alcoholic hepatitis, liver dysfunction, sinusoidal portal hypertension, h/o GERD, diverticulosis, perforated duodenal ulcer - NPO, will start TPN today - Monitor and chart NGT, CONNIE drains to bulb suction. Reinforce or change dressing as needed - Given poor liver function, he is at high risk for jaundice, bleeding, DIC, renal failure - Monitor intra-abdominal pressure - Continue Zofran - Liver biopsy pending - Per GI consult: avoid potential hepatotoxins, nephrotoxins Renal: - Pre-operative azotemia, but currently passing urine via Ann - Monitor lytes, BMPs, - Strict I/Os, monitor urine output ID: secondary peritonitis from perforated duodenal ulcer - remains afebrile, no leukocytosis - Respiratory, peritoneal cultures pending - Peritoneal cultures pending, preliminary gram-negative rods - Continue broad-spectrum ABX: Metronidazole, Vanco, Ceftazidime - all day 2 Heme: macrocystic anemia 2/2 alcoholic liver - Monitor CBCs, H/H - Continue DVT prophylaxis with ALPS BAUDILIO Rico 04/24/16 1313: Addendum Addendum I did not review this patient, this is a student note that was esigned by another provider.
--- NOTE | 2016-04-23 09:29 | PN- CRCU ---
Subjective HPI/Critical Care Issues: The patient remains intubated and sedated on fentanyl. He is arousable and acknowledges that he is experiencing pain. He remains on low-dose Levophed which is being tapered off. Vasopressin has been tapered off. The patient's urine output is low to adequate. He is experiencing significant output of serosanguineous fluid through his CONNIE drains. He is currently afebrile. The patient's CVP is down to 11. His intra-abdominal pressure is also down to 11. His oxygen requirement remains elevated at 55%. Objective Current Medications: Current Medications Sig/Roberto Start time Last Medication Dose Route Stop Time Status Admin Albumin Human 12.5 GM ONCE ONE 04/22 1000 DC 04/22 IV 04/22 1001 1027 Albumin Human 25 GM Q8 04/22 0700 AC 04/23 IV 0518 Albuterol Sulfate 3 ML Q4P PRN 04/22 1145 AC 04/22 INH 1134 Ceftazidime 2,000 MG Q12 04/22 2200 CAN IV Ceftazidime 2,000 MG Q12H 04/22 1730 AC 04/23 IV 0446 Ceftazidime 2,000 MG Q12 04/22 1525 DC 04/22 IV 1735 Ceftriaxone Sodium 1,000 MG DAILY 04/23 1000 CAN IV Cyanocobalamin/ 1 BAG ONCE ONE 04/22 0545 DC 04/22 Thiamine/Pyridoxine IV 04/22 1344 0610 Sodium Chloride 1,000 ML Dextrose 25 GM ONCE ONE 04/22 1145 DC 04/22 IV 04/22 1146 1144 Fentanyl Citrate 250 MCG .STK-MED ONE 04/22 1158 DC IM 04/22 1159 Fentanyl Citrate 1,000 MCG Q24H 04/22 1030 AC 04/22 Dextrose/Water 250 ML IV 2239 Hydromorphone HCl 1 MG ONCE ONE 04/22 0930 DC 04/22 IV 04/22 0931 0934 Hydromorphone HCl 2 MG Q6P PRN 04/22 0930 AC IV Insulin Human Regular 10 UNITS ONCE ONE 04/22 1145 DC 04/22 IV 04/22 1146 1143 Lidocaine 20 ML .STK-MED ONE 04/22 1032 DC IA 04/22 1033 Lorazepam 50 MG Q24H 04/23 0745 AC 04/23 Dextrose/Water 500 ML IV 0750 Lorazepam 50 MG ONCE ONE 04/23 0700 CAN Sodium Chloride 500 ML IV 04/24 0659 Lorazepam 5 MG ONE ONE 04/22 1100 DC 04/22 IV 04/22 1101 1145 Lorazepam 0 Q1P PRN 04/22 0700 AC 04/23 IV 0547 Magnesium Sulfate 1 GM ONCE ONE 04/23 0845 AC Dextrose/Water 100 ML IV 04/23 1244 Magnesium Sulfate 1 GM ONCE ONE 04/23 0800 AC 04/23 Dextrose/Water 100 ML IV 04/23 1159 0822 Magnesium Sulfate 1 GM .STK-MED ONE 04/22 1109 DC IV 04/22 1110 Magnesium Sulfate 1 GM .STK-MED ONE 04/22 1007 DC IV 04/22 1008 Magnesium Sulfate 1 GM Q2H 04/22 1000 DC 04/22 Dextrose/Water 100 ML IV 04/22 1359 1123 Metoprolol Succinate 25 MG DAILY 04/22 1000 CAN PO Metronidazole 500 MG Q8H 04/22 1300 AC 04/23 N/A 1 UNIT IV 0444 Morphine Sulfate 2 MG Q3P PRN 04/22 0615 DC 04/22 IV 0748 Non-Formulary 0 SEE ADMIN CRITERIA 04/22 1700 CAN Medication ANY Non-Formulary 0 SEE ADMIN CRITERIA 04/22 1100 DC Medication ANY Norepinephrine 4 MG Q24H 04/22 1000 AC 04/22 Sodium Chloride 250 ML IV 2239 Norepinephrine 4 MG .STK-MED ONE 04/22 0953 DC IV 04/22 0954 Ondansetron HCl 4 MG Q8P PRN 04/22 0600 AC IV Pantoprazole Sodium 40 MG BID 04/22 2200 AC 04/23 IV 0906 Pantoprazole Sodium 40 MG DAILY 04/22 1000 DC IV Propofol 1,000 MG Q24H 04/22 1715 DC 04/23 N/A 100 ML IV 0211 Propofol 1,000 MG .STK-MED ONE 04/22 1255 DC IV 04/22 1256 Propofol 1,000 MG Q24H 04/22 1100 DC 04/22 N/A 100 ML IV 1144 Propofol 1,000 MG .STK-MED ONE 04/22 1021 DC IV 04/22 1022 Sodium Chloride 1,000 ML Q8H 04/23 0115 AC 04/23 IV 0824 Sodium Chloride 500 ML BOLUS ONE 04/22 1200 DC 04/22 IV 04/22 1259 1154 Sodium Chloride 500 ML BOLUS ONE 04/22 0945 DC 04/22 IV 04/22 1044 1031 Sodium Chloride 1,000 ML Q20H 04/22 0830 DC 04/22 IV 04/22 1629 0826 Vancomycin HCl 2,000 MG DAILY 04/22 1019 DC Sodium Chloride 250 ML IV Vancomycin HCl 2,000 MG DAILY 04/22 1000 AC 04/22 Sodium Chloride 500 ML IV 1153 Vasopressin 40 UNIT Q16H 04/22 1130 DC 04/22 Dextrose/Water 100 ML IV 1144 Vasopressin 40 UNITS .STK-MED ONE 04/22 1043 DC IM 04/22 1044 Vital Signs & I&O Last 24 Hrs of Vitals and I&O: Vital Signs Date Time Temp Pulse Resp B/P Pulse O2 O2 Flow FiO2 Ox Delivery Rate 04/23 0818 55 04/23 0603 55 04/23 0549 98.0 88 18 102/47 04/23 0442 97.9 92 18 108/42 04/23 0400 97.9 86 18 98/00 04/23 0400 97 Ventilator 55% 04/23 0320 55 04/23 0200 98.3 78 18 92/39 04/23 0045 55 04/23 0000 98.3 80 18 96/00 04/23 0000 98.3 80 18 96/00 97 Ventilator 55% 04/23 0000 97 Ventilator 55% 04/22 2239 82 105/43 04/22 2211 55 04/22 2200 98.6 82 18 98/40 04/22 2000 98.6 88 18 108/55 04/22 2000 95 Ventilator 55% 04/22 1900 55 04/22 1630 96.7 85 22 119/62 04/22 1630 97 Ventilator 65% 04/22 1630 96.7 85 22 11962 97 Ventilator 65% 04/22 1610 80 04/22 1401 Ventilator 80% 04/22 1320 80 04/22 1200 96.7 70 28 118/60 04/22 1200 99 Ventilator 80% 04/22 1040 100 04/22 1002 100 95/56 04/22 1000 97.6 100 16 56 Intake & Output 04/23 1600 04/23 0800 04/23 0000 Intake Total 1369 1735 Output Total 1670 1435 Balance -301 300 Intake, IV 1369 1735 Intake, Oral 0 Number 0 Bowel Movements Output, 1355 910 Drainage Output, 100 150 Gastric Drainage Output, Urine 215 375 Exam General Appearance: intubated, sedated but arousable Head: atraumatic Neck: supple, right IJ appears clean without erythema Respiratory: no respiratory distress, bilateral anterior rhonchi, the lungs expand symmetrically and the trachea is midline Cardiovascular: regular rate/rhythm, tachycardia, S1 and S2 heard Abdomen: [address], distended, surgical dressings in place, bowel sounds difficult to hear Extremities: generalized anasarca Skin: intact, warm/dry, jaundice Results Last 24 Hrs of Lab Results: Laboratory Tests 04/23/16 0400: Anion Gap 8, Estimated GFR > 60, Glucose 87, Calcium 7.4 L, Phosphorus 4.1, Magnesium 1.7, Total Bilirubin 3.5 H, AST 73 H, ALT 45, Albumin 2.6 L, CBC w Diff NO MAN DIFF REQ, RBC 2.70 L, MCV 99.9 H, MCH 32.3 H, RDW 16.0 H, MPV 8.2, Gran % 80.6 H, Lymphocytes % 6.9 L, Monocytes % 12.2 H, Eosinophils % 0.1, Basophils % 0.2, PUBS MCHC 32.3 L, Absolute Granulocytes 6.3, Absolute Lymphocytes 0.5 L, Absolute Monocytes 1.0 H, Absolute Eosinophils 0, Absolute Basophils 0 04/23/16 0025: pH 7.42, pCO2 41, pO2 100, HCO3 26, ABG O2 Sat (Measured) 97.0, P-50 (Temp Corrected) Y, Carboxyhemoglobin 0.3 L, O2 Concentration % 55%, Temperature 98.3 , Respiration Rate 18, O2 Delivery Method ESPRIT, Vent Mode AC, Expiratory Pressure 5, Tidal Volume 550, Phlebotomy Draw Site [place] 04/22/16 1830: pH 7.44, pCO2 35, pO2 125 H, HCO3 24, ABG O2 Sat (Measured) 98.0, P-50 (Temp Corrected) Y, Carboxyhemoglobin 0.1 L, O2 Concentration % 65, Temperature 96.7 L, Respiration Rate 22, O2 Delivery Method ESPRIT, Vent Mode AC, Expiratory Pressure 5, Tidal Volume 550, Phlebotomy Draw Site [place] 04/22/16 1737: Anion Gap 11, Estimated GFR 59 L, Glucose 139 H, Calcium 7.7 L, Phosphorus 4.1, Magnesium 1.6, Total Bilirubin 4.0 H, AST 85 H, ALT 45, Albumin 2.8 L, CBC w Diff NO MAN DIFF REQ, RBC 2.77 L, MCV 98.0 H, MCH 32.5 H, RDW 15.7 H, MPV 7.4, Gran % 86.6 H, Lymphocytes % 5.4 L, Monocytes % 7.9, Eosinophils % 0, Basophils % 0.1, PUBS MCHC 33.2, Absolute Granulocytes 6.0, Absolute Lymphocytes 0.4 L, Absolute Monocytes 0.5, Absolute Eosinophils 0, Absolute Basophils 0 04/22/16 1305: pH 7.46 H, pCO2 27 L, pO2 160 H, HCO3 19 L, ABG O2 Sat (Measured) 98.0, Carboxyhemoglobin 0.6 L, O2 Concentration % 80%, Respiration Rate 28, O2 Delivery Method VENT, Vent Mode AC, Expiratory Pressure 5, Tidal Volume 550, Phlebotomy Draw Site LEFT RADIAL 04/22/16 1200: CBC w Diff Cancelled, WBC Cancelled, RBC Cancelled, Hgb Cancelled, Hct Cancelled , MCV Cancelled, MCH Cancelled, RDW Cancelled, Plt Count Cancelled, MPV Cancelled, PUBS MCHC Cancelled 04/22/16 1138: CBC w Diff Cancelled, WBC Cancelled, RBC Cancelled, Hgb Cancelled, Hct Cancelled , MCV Cancelled, MCH Cancelled, RDW Cancelled, Plt Count Cancelled, MPV Cancelled, PUBS MCHC Cancelled 04/22/16 1000: pH 7.28 *L, pCO2 49 H, pO2 91, HCO3 22, ABG O2 Sat (Measured) 94.0 L, Carboxyhemoglobin 1.2 L, O2 Concentration % 3L, O2 Delivery Method NC, Sodium Cancelled, Potassium Cancelled, Chloride Cancelled, Carbon Dioxide Cancelled, Anion Gap Cancelled, BUN Cancelled, Creatinine Cancelled, Glucose Cancelled, Calcium Cancelled, Phosphorus Cancelled, Magnesium Cancelled, Total Bilirubin Cancelled, AST Cancelled, ALT Cancelled, Albumin Cancelled, Phlebotomy Draw Site LEFT RADIAL 04/22/16 0997: Anion Gap 14, Estimated GFR 43 L, Glucose 114 H, Calcium 8.2 L, Phosphorus 5.5 H, Magnesium 1.4 L, Total Bilirubin 4.8 H, AST 94 H, ALT 39, Albumin 3.2 L 04/22/16 0952: Anion Gap 14, Estimated GFR 43 L, BUN/Creatinine Ratio 11.2, Lactic Acid 4.1 H , Total Bilirubin 4.7 H, Direct Bilirubin 3.0 H, AST 95 H, ALT 48, Alkaline Phosphatase 152 H, Total Protein 6.5, Albumin 3.2 L, PT 17.6 H, INR 1.67 H, CBC w Diff MAN DIFF ORDERED, RBC 3.51 L, MCV 99.5 H, MCH 32.4 H, RDW 15.6 H, MPV 7.9, Gran % 88.4 H, Lymphocytes % 2.4 L, Monocytes % 9.2, Eosinophils % 0, Basophils % 0 L, Segmented Neutrophils 77 H, Band Neutrophils 13 H, Lymphocytes 2 L, Monocytes 8, Platelet Estimate ADEQUATE, Normocytic RBCs VERIFIED, Normochromic RBCs VERIFIED, PUBS MCHC 32.6 L, Absolute Granulocytes 10.3 H, Absolute Lymphocytes 0.3 L, Absolute Monocytes 1.1 H, Absolute Eosinophils 0, Absolute Basophils 0, Hepatitis A IgM Ab NONREACTIVE, Hep Bs Antigen NONREACTIVE, Hep B Core IgM Ab Conf NONREACTIVE, Hepatitis C Antibody NONREACTIVE, HIV 1&2 Ab Western Blot NONREACTIVE, Acetaminophen < 10.0 L Last 24 Hrs of Micro Results: Ascites culture positive for gram-negative rods, identification pending. Impression/Plan Impression/Plan Impression/Plan: 1. Perforated viscus with multisystem organ failure and septic shock. The patient appears to be slowly improving noting that his pressor requirement has been lowered and his urine output has improved. He does however now appear to be going into alcohol withdrawal which can complicate his critical condition. 2. Acute kidney injury, improving. 3. Alcoholic hepatitis with transaminitis and coagulopathy. 4. Lactic acidosis likely secondary to sepsis. 5. Macrocytic anemia in the setting of alcohol use. 6. Hypertension. 7. Diarrhea. 8. Alcohol dependence/abuse, now with evidence of withdrawl. 9. Elevated TSH, consistent with sick thyroid. Right IJ: Day 2 Left radial A-line: Day 2 CONNIE drains x 3: Day 2 Mechanical ventilation: Day 2 Ann catheter: Day 2 Recommendations: * Check a portable chest x-ray now for evaluation of ET tube placement and lung nathan. * Check a lactic acid and coags now. * Transfuse 1 unit of packed red blood cells. * Check repeat labs today at 3 PM and continue with aggressive electrolyte repletion. * Attempt to wean Levophed down to off if able. * Follow up culture results. * Continue antibiotics as recommended by ID (ceftazidime and Flagyl). Discontinue vanco. * Decrease normal saline to 75 ML per hour. * Monitor urine output/strict I's and O's. * Follow-up GI input regarding alcoholic hepatitis/chronic liver disease. * Continue albumin for now. * Monitor on CIWA protocol, continue with Ativan drip. * Continue fentanyl drip for adequate pain control. * Continue multivitamin, thiamine and folate. * Continue vitamin K for 3 days. * Start TPN today as recommended by surgery. * The patient remains critically ill and will need very close monitoring. I discussed the plan of care with the housestaff and nursing in detail and asked them to contact me should the patient's condition change or deteriorate. * I updated the patient's family on his condition at the bedside. TTS 60
--- NOTE | 2016-04-23 10:29 | ECHOCARDIOGRAM REPORT ---
CECILIA BABCOCK Age: 50 : 1965 Gender: M Exam Date: 04/22/2016 19:04 Exam Location: [facility] Ht (in): 70 Wt (lb): 300 BSA: 2.66 BP: 120 / 50 Ordering Physician: SAMUEL TSANG MD Referring Physician: SAMUEL TSANG MD Technologist: Flores Stoll [facility] Room Number: 106-1 Indications: HEART FAILURE Rhythm: Technical Quality: Fair FINDINGS Left Ventricle Left ventricular cavity size normal. Left ventricular wall thickness mildly increased. No obvious regional wall motion abnormalities. Left ventricular ejection fraction is estimated at 55 %. Normal left ventricular diastolic filling pattern for age. Right Ventricle Right ventricle not well visualized, grossly normal. Right Atrium Normal right atrial size. Left Atrium Left atrial size at the upper limits of normal. Mitral Valve Mild mitral annular calcification. No mitral stenosis. Trace mitral regurgitation. Aortic Valve Trileaflet aortic valve. No aortic stenosis. Tricuspid Valve Structurally normal tricuspid valve. Mild tricuspid regurgitation. Right ventricular systolic pressure estimated at 35 mmHg. Pulmonic Valve Pulmonic valve not well visualized, grossly normal. Pericardium No pericardial effusion. Great Vessels Normal size aortic root and proximal ascending aorta. CONCLUSIONS Left ventricular cavity size normal. Left ventricular wall thickness mildly increased. No obvious regional wall motion abnormalities. Left ventricular ejection fraction is estimated at 55 %. Normal left ventricular diastolic filling pattern for age. Right ventricle not well visualized, grossly normal. Left atrial size at the upper limits of normal. Right ventricular systolic pressure estimated at 35 mmHg. No pericardial effusion. Pan Kruse M.D. (Electronically Signed) Final Date: 23 April 2016 10:28 MEASUREMENTS (Male / Female) Normal Values 2D ECHO LV Diastolic Diameter PLAX 4.9 cm 4.2 - 5.9 / 3.9 - 5.3 cm LV Systolic Diameter PLAX 3.5 cm 2.1 - 4.0 cm LV Fractional Shortening PLAX 28.6 % 25 - 46 % LV Ejection Fraction 2D Teich 54.9 % IVS Diastolic Thickness 1.3 cm LVPW Diastolic Thickness 1.3 cm LV Relative Wall Thickness 0.5 RV Internal Dim ED PLAX 2.9 cm 1.9 - 3.8 cm LVOT Diameter 2.2 cm Aortic Root Diameter 3.3 cm LA Systolic Diameter LX 4.6 cm 3.0 - 4.0 / 2.7 - 3.8 cm Ascending Aorta Diameter 3.5 cm DOPPLER AV Peak Velocity 174.0 cm/s AV Peak Gradient 12.1 mmHg AV Mean Velocity 120.0 cm/s AV Mean Gradient 7.0 mmHg AV Velocity Time Integral 33.0 cm LVOT Peak Velocity 136.0 cm/s LVOT Peak Gradient 7.4 mmHg LVOT Mean Velocity 88.7 cm/s LVOT Mean Gradient 4.0 mmHg LVOT Velocity Time Integral 27.1 cm LVOT Stroke Volume 103.0 cm AV Area Cont Eq vti 3.1 cm AV Area Cont Eq pk 3.0 cm MV Peak Velocity 120.0 cm/s MV Peak Gradient 5.8 mmHg MV Mean Velocity 74.8 cm/s MV Mean Gradient 3.0 mmHg Mitral E Point Velocity 88.8 cm/s Mitral A Point Velocity 74.5 cm/s Mitral E to A Ratio 1.2 MV PHT Velocity 125.0 cm/s MV Deceleration [place] 650.0 cm/s MV Pressure Half Time 57.7 ms MV Area PHT 3.8 cm MV Deceleration Time 257.0 ms TR Peak Velocity 268.0 cm/s TR Peak Gradient 28.7 mmHg PV Peak Velocity 121.0 cm/s PV Peak Gradient 5.9 mmHg PV Mean Velocity 91.5 cm/s PV Mean Gradient 4.0 mmHg PV Velocity Time Integral 29.6 cm LV E' Lateral Velocity 18.2 cm/s Mitral E to LV E' Lateral Ratio 4.9 LV E' Septal Velocity 12.7 cm/s Mitral E to LV E' Septal Ratio 7.0
--- NOTE | 2016-04-23 11:19 | PN- Infect Dx ---
Subjective Subjective: Afebrile. Blood pressure is stable on a decreasing dose of Levophed, with Vasopressin discontinued. Objective Last 24 Hrs of Vital Signs/I&O Vital Signs Date Time Temp Pulse Resp B/P Pulse O2 O2 Flow FiO2 Ox Delivery Rate 04/23 1000 86 18 98/41 04/23 0818 55 04/23 0800 98.2 102 20 112/50 04/23 0800 89 Ventilator 50% 04/23 0800 98.2 102 20 112/50 96 Ventilator 50% 04/23 0603 55 04/23 0549 98.0 88 18 102/47 04/23 0442 97.9 92 18 108/42 04/23 0400 97.9 86 18 98/00 04/23 0400 97 Ventilator 55% 04/23 0320 55 04/23 0200 98.3 78 18 92/39 04/23 0045 55 04/23 0000 98.3 80 18 96/00 04/23 0000 98.3 80 18 96/00 97 Ventilator 55% 04/23 0000 97 Ventilator 55% 04/22 2239 82 105/43 04/22 2211 55 04/22 2200 98.6 82 18 98/40 04/22 2000 98.6 88 18 108/55 04/22 2000 95 Ventilator 55% 04/22 1900 55 04/22 1630 96.7 85 22 119/62 04/22 1630 97 Ventilator 65% 04/22 1630 96.7 85 22 11962 97 Ventilator 65% 04/22 1610 80 04/22 1401 Ventilator 80% 04/22 1320 80 04/22 1200 96.7 70 28 118/60 04/22 1200 99 Ventilator 80% Intake & Output 04/23 1600 04/23 0800 04/23 0000 Intake Total 1369 1735 Output Total 1670 1435 Balance -301 300 Intake, IV 1369 1735 Intake, Oral 0 Number 0 Bowel Movements Output, 1355 910 Drainage Output, 100 150 Gastric Drainage Output, Urine 215 375 Patient 300 lb Weight Physical Exam Other Physical Findings: He is awake and alert on the ventilator Neck right IJ triple lumen catheter with no inflammation at the site Lungs are clear Heart regular rhythm with no murmur Abdomen is obese, distended, positive bowel sounds; [address] Extremities 1+ edema both lower extremities Ann catheter remains in place Results Last 24 Hours of Lab Results: Laboratory Tests 04/23 04/23 04/22 0400 0021 7950 Blood Gas pH (7.35 - 7.45 PH) 7.42 7.44 pCO2 (35 - 45 TORR) 41 35 pO2 (80 - 100 TORR) 100 125 H HCO3 (21 - 28 MEQ/L) 26 24 ABG O2 Sat (Measured) (>96.0 %) 97.0 98.0 P-50 (Temp Corrected) Y Y Carboxyhemoglobin (1.5 - 5.0 %) 0.3 L 0.1 L O2 Concentration % 55% 65 Temperature (97.0 - 100.0 FARH) 98.3 96.7 L Respiration Rate (BPM) 18 22 O2 Delivery Method ESPRIT ESPRIT Vent Mode AC AC Expiratory Pressure (CMH2O/P) 5 5 Tidal Volume (CC) 550 550 Chemistry Sodium (137 - 145 mmol/L) 135 L Potassium (3.5 - 5.1 mmol/L) 4.4 Chloride (98 - 107 mmol/L) 101 Carbon Dioxide (22 - 30 mmol/L) 26 Anion Gap (5 - 16) 8 BUN (9 - 20 mg/dL) 22 H Creatinine (0.7 - 1.2 mg/dL) 1.2 Estimated GFR (>60 ml/min) > 60 Glucose (65 - 99 mg/dL) 87 Calcium (8.4 - 10.2 mg/dL) 7.4 L Phosphorus (2.5 - 4.5 mg/dL) 4.1 Magnesium (1.6 - 2.3 mg/dL) 1.7 Total Bilirubin (0.2 - 1.3 mg/dL) 3.5 H AST (17 - 59 U/L) 73 H ALT (21 - 72 U/L) 45 Albumin (3.5 - 5.0 g/dL) 2.6 L Hematology CBC w Diff NO MAN DIFF REQ WBC (4.8 - 10.8 /CUMM) 7.8 RBC (4.70 - 6.10 /CUMM) 2.70 L Hgb (14.0 - 18.0 G/DL) 8.7 L Hct (42 - 52 %) 27.0 L MCV (80.0 - 94.0 FL) 99.9 H MCH (27.0 - 31.0 PG) 32.3 H RDW (11.5 - 14.5 %) 16.0 H Plt Count (130 - 400 /CUMM) 138 MPV (7.4 - 10.4 FL) 8.2 Gran % (42.2 - 75.2 %) 80.6 H Lymphocytes % (20.5 - 51.1 %) 6.9 L Monocytes % (1.7 - 9.3 %) 12.2 H Eosinophils % (0 - 5 %) 0.1 Basophils % (0.0 - 2.0 %) 0.2 PUBS MCHC (33.0 - 37.0 G/DL) 32.3 L Immunology Absolute Granulocytes (1.4 - 6.5 /CUMM) 6.3 Absolute Lymphocytes (1.2 - 3.4 /CUMM) 0.5 L Absolute Monocytes (0.10 - 0.60 /CUMM) 1.0 H Absolute Eosinophils (0.0 - 0.7 /CUMM) 0 Absolute Basophils (0.0 - 0.2 /CUMM) 0 Miscellaneous Phlebotomy Draw Site [facility] 04/22 04/22 2987 1305 Blood Gas pH (7.35 - 7.45 PH) 7.46 H pCO2 (35 - 45 TORR) 27 L pO2 (80 - 100 TORR) 160 H HCO3 (21 - 28 MEQ/L) 19 L ABG O2 Sat (Measured) (>96.0 %) 98.0 Carboxyhemoglobin (1.5 - 5.0 %) 0.6 L O2 Concentration % 80% Respiration Rate (BPM) 28 O2 Delivery Method VENT Vent Mode AC Expiratory Pressure (CMH2O/P) 5 Tidal Volume (CC) 550 Chemistry Sodium (137 - 145 mmol/L) 133 L Potassium (3.5 - 5.1 mmol/L) 4.8 Chloride (98 - 107 mmol/L) 97 L Carbon Dioxide (22 - 30 mmol/L) 25 Anion Gap (5 - 16) 11 BUN (9 - 20 mg/dL) 19 Creatinine (0.7 - 1.2 mg/dL) 1.3 H Estimated GFR (>60 ml/min) 59 L Glucose (65 - 99 mg/dL) 139 H Calcium (8.4 - 10.2 mg/dL) 7.7 L Phosphorus (2.5 - 4.5 mg/dL) 4.1 Magnesium (1.6 - 2.3 mg/dL) 1.6 Total Bilirubin (0.2 - 1.3 mg/dL) 4.0 H AST (17 - 59 U/L) 85 H ALT (21 - 72 U/L) 45 Albumin (3.5 - 5.0 g/dL) 2.8 L Hematology CBC w Diff NO MAN DIFF REQ WBC (4.8 - 10.8 /CUMM) 6.9 RBC (4.70 - 6.10 /CUMM) 2.77 L Hgb (14.0 - 18.0 G/DL) 9.0 L Hct (42 - 52 %) 27.2 L MCV (80.0 - 94.0 FL) 98.0 H MCH (27.0 - 31.0 PG) 32.5 H RDW (11.5 - 14.5 %) 15.7 H Plt Count (130 - 400 /CUMM) 137 MPV (7.4 - 10.4 FL) 7.4 Gran % (42.2 - 75.2 %) 86.6 H Lymphocytes % (20.5 - 51.1 %) 5.4 L Monocytes % (1.7 - 9.3 %) 7.9 Eosinophils % (0 - 5 %) 0 Basophils % (0.0 - 2.0 %) 0.1 PUBS MCHC (33.0 - 37.0 G/DL) 33.2 Immunology Absolute Granulocytes (1.4 - 6.5 /CUMM) 6.0 Absolute Lymphocytes (1.2 - 3.4 /CUMM) 0.4 L Absolute Monocytes (0.10 - 0.60 /CUMM) 0.5 Absolute Eosinophils (0.0 - 0.7 /CUMM) 0 Absolute Basophils (0.0 - 0.2 /CUMM) 0 Miscellaneous Phlebotomy Draw Site LEFT RADIAL 04/22 04/22 1200 1138 Hematology CBC w Diff Cancelled Cancelled WBC Cancelled Cancelled RBC Cancelled Cancelled Hgb Cancelled Cancelled Hct Cancelled Cancelled MCV Cancelled Cancelled MCH Cancelled Cancelled RDW Cancelled Cancelled Plt Count Cancelled Cancelled MPV Cancelled Cancelled PUBS MCHC Cancelled Cancelled Last 24 Hours of Garcia Results: Ascitic fluid culture April 22 positive for gram-negative rods (possibly Enterobacter) and gram-positive cocci (possible Enterococcus) OR culture April 22 negative so far Blood cultures 2 April 22 negative Urine culture April 22 negative Sputum culture April 22 mixed goldie Assessment/Plan Impression: Stable with overall improvement status post laparoscopic Clint plication of a perforated duodenal ulcer yesterday in this 50-year-old man with heavy alcohol abuse presenting with severe sepsis. His blood pressure has improved, with decreasing pressor requirements, and his urine output and renal function are also improving. He remains afebrile with white blood cell count normal on Ceftazidime and Flagyl, with Vancomycin apparently continued as well. His OR cultures are pending but suggest a polymicrobial process, and his antibiotics can be adjusted. Suggestion: 1. Follow-up final cultures from the paracentesis and the OR 2. Discontinue Vancomycin, Flagyl and Ceftazidime 3. Begin Meropenem 1 g IV every 8 hours pending above
--- NOTE | 2016-04-23 11:20 | NUR ---
PT/INR AND LACTIC DRAWN AT THIS TIME VIA A LINE TO LEFT RADIAL. 1 UNIT PRBC TO BE TRANSFUSED, CALLED FOR BLOOD AT THIS TIME.
--- NOTE | 2016-04-23 11:29 | NUR ---
0800: RECEIVED PT IN BED, DROWSY/ AROUSABLE/ RESTLESS. SAS OF 5, ATIVAN GTT STARTED AT 2MG/HR PER DR PANDEY. RESP: INTUBATED, ETT 8, TAPED AT 22 CM TO RIGHT LIP. VENT SETTINGS FOLLOWS AC-18 550/55/5. RT HAD TURNED PTS FIO2 DOWN TO 50% AT 0750, SAT DROPPED TO 89% AND REMAINED AT THAT LEVEL. FIO2 TURNED BACK UP TO 55% AT 0815, SAT 96% LUNGS CLEAR, MINIMAL SECRETIONS. SUCTIONED BY RT, MOUTH CARE PROVIDED. NSR/ST ON MONITOR, RATE 80-100'S. AFEBRILE, MANUAL B/P 112/50, ARTERIAL B/P 115/45. CVP 18. NGT TO RIGHT NARE, RETAPED TO 60CM, TO LOW WALL SUCTION. NO BOWEL SOUNDS NOTED, ABDOMEN REMAINS DISTENDED BUT SOFTER THAN YESTERDAY. 2 LAP SITES TO ABDOMEN, RIGHT ABDOMEN LAP SITE OMAYRA, FLORES. MID ABDOMEN LAP SITE DRESSING CLEAN DRY AND INTACT. 3 CONNIE DRAINS, DRESSINGS CHANGED AT THIS TIME, SITES DRAINING, CONNIE'S EMPTIED, 100 ML EACH. +4 BILATERAL PEDAL EDEMA. + PULSES. STERLING IN PLACE DRAINING ORANGE COLORED URINE, URINE OUTPUT 20-[address] IN [address], DRESSING INTACT, BIOPATCH IN PLACE, SUTURED, + BLOOD RETURN. LEVO GTT INFUSING VIA BLUE PORT AT 3 MCG/MIN. NS @ 125 ML/HR INFUSING VIA BROWN PORT. FENT GTT AT 75 MCG INFUSING VIA #20 LF, ALONG WITH ATIVAN GTT. LEFT RADIAL A LINE IN PLACE, ZEROED. CIWA 6 AT THIS TIME. BILATERAL WRIST RESTRAINTS REMAIN IN PLACE WHILE PT IS INTUBATED. ALPS ON. TPN TO BE STARTED TONIGHT.
[2016-04-23 11:58] LABS: PT 16.6 SEC (9.4-12.5); PTT 35 SEC (25-37)
--- NOTE | 2016-04-23 11:59 | RADIOLOGY REPORT ---
EXAMINATION: XR PORTABLE CHEST CLINICAL INFORMATION: Endotracheal tube positioning. COMPARISON: CXR from 04/22/2016 TECHNIQUE: Portable view of the chest was obtained. FINDINGS: The tip of the endotracheal tube is located approximately 5 cm above the ching. The tip of the right internal jugular central venous catheter is at the level of junction of the superior vena cava and right atrium. The enteric tube extends below the diaphragm into the stomach; this tube is suboptimally visualized. Lungs are hypoinflated and there is stable mild enlargement of the cardiomediastinal silhouette. There is an area of increased discoid atelectasis in the right lung base. There is no radiographically visible pneumoperitoneum. IMPRESSION: 1. Endotracheal tube in satisfactory position at 5 cm above the ching. 2. Increased discoid atelectasis in the right lung base compared to 04/22/2016.
--- NOTE | 2016-04-23 14:21 | NUR ---
RT AT BEDSIDE, ETT RETAPED TO LEFT SIDE OF THE MOUTH, AT 22CM. SUCTIONED BY RT.
--- NOTE | 2016-04-23 14:49 | NUR ---
1400: BANANA BAG RUNNING @ 125ML/HR PER MD JOHNSON IVF ON HOLD WHILE BANANA BAG INFUSING. PT GIVEN 10MG SUBQ VITAMIN K FOR INR OF 1.59. CONNIE OUTPUT LEFT ABDOMEN #1 600ML, MID ABDOMEN #2 670ML, RIGHT ABDOMEN #3 340ML.
--- NOTE | 2016-04-23 15:03 | NUR ---
CBC AND ICU BUNDLE DRAWN AT THIS TIME VIA ARTERIAL LINE IN LEFT RADIAL.
[2016-04-23 15:45] LABS: ABSOLUTE BASOPHIL COUNT 0 /CUMM (0.0-0.2); ABSOLUTE EOSINOPHIL COUNT 0 /CUMM (0.0-0.7); ABSOLUTE GRANULOCYTE CT 6.4 /CUMM (1.4-6.5); ABSOLUTE LYMPH COUNT 0.5 /CUMM (1.2-3.4); ABSOLUTE MONOCYTE COUNT 0.8 /CUMM (0.10-0.60); BASOPHIL % 0 % (0.0-2.0); EOSINOPHIL % 0.2 % (0-5); GRANULOCYTE % 82.6 % (42.2-75.2); HEMATOCRIT 28.2 % (42-52); MEAN CORPUSCULAR HGB 31.9 PG (27.0-31.0); MEAN CORPUSCULAR HGB CONC 32.3 G/DL (33.0-37.0); MEAN CORPUSCULAR VOLUME 98.7 FL (80.0-94.0); PLATELET COUNT 146 /CUMM (130-400); RBC DISTRIBUTION WIDTH 16.4 % (11.5-14.5); RED BLOOD CELL CT 2.86 /CUMM (4.70-6.10); WHITE BLOOD CELL COUNT 7.7 /CUMM (4.8-10.8)
--- NOTE | 2016-04-23 18:24 | NUR ---
LEFT ARM SWOLLEN, IV REMOVED. NEW LINE PLACED #20 RF. FENTANYL INFUSING VIA RF IV AT THIS TIME.
--- NOTE | 2016-04-23 19:15 | NUR ---
TPN AND LIPIDS STARTED AT THIS TIME THRU RIJ TLC WHITE PORT. TPN AT 50ML/HR AND LIPIDS AT 10.4ML/HR, CONNIE #2 DRAINAGE SEROUS AT THIS TIME. NGT OUTPUT GREEN IN COLOR.
[2016-04-24] VITALS (10 sets, daily range): BP systolic 100–120; BP diastolic 44–70
[2016-04-24 04:37] LABS: ABSOLUTE BASOPHIL COUNT 0 /CUMM (0.0-0.2); ABSOLUTE EOSINOPHIL COUNT 0 /CUMM (0.0-0.7); ABSOLUTE GRANULOCYTE CT 6.1 /CUMM (1.4-6.5); ABSOLUTE LYMPH COUNT 0.7 /CUMM (1.2-3.4); ABSOLUTE MONOCYTE COUNT 0.8 /CUMM (0.10-0.60); BASOPHIL % 0.4 % (0.0-2.0); EOSINOPHIL % 0.5 % (0-5); GRANULOCYTE % 79.4 % (42.2-75.2); MEAN CORPUSCULAR HGB 32.4 PG (27.0-31.0); MEAN CORPUSCULAR HGB CONC 32.7 G/DL (33.0-37.0); MEAN CORPUSCULAR VOLUME 99.1 FL (80.0-94.0); MEAN PLATELET VOLUME 7.7 FL (7.4-10.4); PLATELET COUNT 147 /CUMM (130-400); RBC DISTRIBUTION WIDTH 16.4 % (11.5-14.5); RED BLOOD CELL CT 2.83 /CUMM (4.70-6.10); WHITE BLOOD CELL COUNT 7.7 /CUMM (4.8-10.8)
--- NOTE | 2016-04-24 05:43 | PN- General Surgery ---
Subjective Subjective: Patient remains intubated and in critical condition. He is POD#2 s/p exploratory laparoscopy with grahm plication of duodenal ulcer and core liver biopsy. He is no longer receiving propofol. Remains on 1 pressor. CONNIE drain sites continue leak around tubes. Objective Vital Signs and I&Os Vital Signs Date Time Temp Pulse Resp B/P Pulse O2 O2 Flow FiO2 Ox Delivery Rate 04/24 0319 50 04/24 0042 50 04/24 0000 99.1 80 18 107/48 04/24 0000 99.1 80 18 10748 96 Ventilator 50% 04/24 0000 96 Ventilator 50% 04/23 2222 50 04/23 2200 92 18 97/48 04/23 2000 98.9 77 18 104/45 04/23 2000 97 Ventilator 50% 04/23 1937 55 04/23 1800 99.2 104 18 97/37 04/23 1718 89 105/53 04/23 1620 55 04/23 1600 98.9 100 23 100/60 04/23 1600 95 Ventilator 55% 04/23 1600 98.9 100 23 100/60 95 Ventilator 55% 04/23 1428 55 04/23 1400 99.5 85 18 104/64 04/23 1200 98.8 92 18 110/52 04/23 1200 94 Ventilator 55% 04/23 1200 98.8 92 18 110/52 94 Ventilator 55% 04/23 1150 55 04/23 1000 86 18 98/41 04/23 0818 55 04/23 0800 98.2 102 20 112/50 04/23 0800 89 Ventilator 50% 04/23 0800 98.2 102 20 112/50 96 Ventilator 50% 04/23 0603 55 04/23 0549 98.0 88 18 102/47 Intake & Output 04/24 0800 04/24 0000 04/23 1600 04/23 0800 04/23 0000 04/22 1600 Intake Total 1969.0 2297 1369 1735 4029 Output Total 1920 1945 1670 1435 400 Balance 49.0 352 -180 055 5286 Intake, Blood 400 613 Product Intake, IV 1759 1897 1369 1735 3416 Intake, Lipid 36.0 Intake, Oral 0 0 0 0 Intake, 174 TPN/PPN Number 0 0 0 Bowel Movements Output, 1620 1610 1355 910 Drainage Output, 100 60 100 150 100 Gastric Drainage Output, Urine 200 275 215 375 300 Patient 300 lb 300 lb Weight Physical Exam: Gen: Intubated, sedated Lungs: ventilated with good air movement and chest expansion CV: RRR Abd: Mild firmness, distended. Incision site dressings c/d/i. CONNIE drain x3 with serosanguinous drainage and drain dressings saturated. Ext: BLE with 3+ edema, warm. 1+ DP BLE. Current Medications: Current Medications Sig/Roberto Start time Last Medication Dose Route Stop Time Status Admin Albumin Human 25 GM Q8 04/22 0700 AC 04/23 IV 2220 Albuterol Sulfate 3 ML Q4P PRN 04/22 1145 AC 04/22 INH 1134 Ceftazidime 2,000 MG Q12H 04/22 1730 DC 04/23 IV 0446 Cyanocobalamin/ 1 BAG ONCE ONE 04/23 1330 DC 04/23 Thiamine/Pyridoxine IV 04/24 0249 1407 Dextrose/Water 1,000 ML Fat Emulsion 250 ML 1900 04/23 1900 AC 04/23 Intravenous IV 04/24 1859 1857 Fentanyl Citrate 1,000 MCG Q24H 04/22 1030 AC 04/23 Dextrose/Water 250 ML IV 1534 Hydromorphone HCl 2 MG Q6P PRN 04/22 0930 AC IV Lorazepam 50 MG Q24H 04/23 1315 AC 04/23 Sodium Chloride 500 ML IV 1407 Lorazepam 50 MG Q24H 04/23 0745 DC 04/23 Dextrose/Water 500 ML IV 0750 Lorazepam 50 MG ONCE ONE 04/23 0700 CAN Sodium Chloride 500 ML IV 04/24 0659 Lorazepam 0 Q1P PRN 04/22 0700 AC 04/23 IV 0547 Magnesium Sulfate 1 GM ONCE ONE 04/23 0845 DC 04/23 Dextrose/Water 100 ML IV 04/23 1244 0951 Magnesium Sulfate 1 GM ONCE ONE 04/23 0800 DC 04/23 Dextrose/Water 100 ML IV 04/23 1159 0822 Meropenem 1 GM IQ8 04/23 1600 AC 04/23 IV 2306 Metronidazole 500 MG Q8H 04/22 1300 DC 04/23 N/A 1 UNIT IV 0444 Norepinephrine 4 MG Q24H 04/22 1000 AC 04/23 Sodium Chloride 250 ML IV 1718 Ondansetron HCl 4 MG Q8P PRN 04/22 0600 AC IV Pantoprazole Sodium 40 MG BID 04/220 AC 04/23 IV 2221 Phytonadione 10 MG ONE ONE 04/23 1415 DC 04/23 SC 04/23 1416 1435 Phytonadione 1 MG ONE ONE 04/23 1315 CAN SC 04/23 1316 Propofol 1,000 MG Q24H 04/22 1715 DC 04/23 N/A 100 ML IV 0211 Sodium Chloride 1,000 ML Q8H 04/23 0115 AC 04/24 IV 0139 Total Parenteral 1 UNIT ONE 04/23 1900 04/23 Nutrition IV 04/24 185 1857 Vancomycin HCl 2,000 MG DAILY 04/22 1000 DC 04/23 Sodium Chloride 500 ML IV 1032 Results Last 48 Hours of Labs: Laboratory Tests 04/24 04/24 0455 0417 Blood Gas pH (7.35 - 7.45 PH) 7.41 pCO2 (35 - 45 TORR) 40 pO2 (80 - 100 TORR) 92 HCO3 (21 - 28 MEQ/L) 25 ABG O2 Sat (Measured) (>96.0 %) 96.0 P-50 (Temp Corrected) Y Carboxyhemoglobin (1.5 - 5.0 %) 0.3 L O2 Concentration % 50% Temperature (97.0 - 100.0 FARH) 99.3 Respiration Rate (BPM) 18 O2 Delivery Method ESPRIT Vent Mode AC Expiratory Pressure (CMH2O/P) 5 Tidal Volume (CC) 550 Chemistry Sodium (137 - 145 mmol/L) 134 L Potassium (3.5 - 5.1 mmol/L) 3.9 Chloride (98 - 107 mmol/L) 101 Carbon Dioxide (22 - 30 mmol/L) 25 Anion Gap (5 - 16) 8 BUN (9 - 20 mg/dL) 24 H Creatinine (0.7 - 1.2 mg/dL) 1.1 Estimated GFR (>60 ml/min) > 60 Glucose (65 - 99 mg/dL) 119 H Calcium (8.4 - 10.2 mg/dL) 7.5 L Phosphorus (2.5 - 4.5 mg/dL) 3.1 Magnesium (1.6 - 2.3 mg/dL) 2.1 Total Bilirubin (0.2 - 1.3 mg/dL) 3.2 H AST (17 - 59 U/L) 107 H ALT (21 - 72 U/L) 42 Albumin (3.5 - 5.0 g/dL) 2.6 L Hematology CBC w Diff NO MAN DIFF REQ WBC (4.8 - 10.8 /CUMM) 7.7 RBC (4.70 - 6.10 /CUMM) 2.83 L Hgb (14.0 - 18.0 G/DL) 9.2 L Hct (42 - 52 %) 28.0 L MCV (80.0 - 94.0 FL) 99.1 H MCH (27.0 - 31.0 PG) 32.4 H RDW (11.5 - 14.5 %) 16.4 H Plt Count (130 - 400 /CUMM) 147 MPV (7.4 - 10.4 FL) 7.7 Gran % (42.2 - 75.2 %) 79.4 H Lymphocytes % (20.5 - 51.1 %) 9.2 L Monocytes % (1.7 - 9.3 %) 10.5 H Eosinophils % (0 - 5 %) 0.5 Basophils % (0.0 - 2.0 %) 0.4 PUBS MCHC (33.0 - 37.0 G/DL) 32.7 L Immunology Absolute Granulocytes (1.4 - 6.5 /CUMM) 6.1 Absolute Lymphocytes (1.2 - 3.4 /CUMM) 0.7 L Absolute Monocytes (0.10 - 0.60 /CUMM) 0.8 H Absolute Eosinophils (0.0 - 0.7 /CUMM) 0 Absolute Basophils (0.0 - 0.2 /CUMM) 0 Miscellaneous Phlebotomy Draw Site [facility] 04/23 04/23 1500 1113 Chemistry Sodium (137 - 145 mmol/L) 134 L Potassium (3.5 - 5.1 mmol/L) 4.0 Chloride (98 - 107 mmol/L) 100 Carbon Dioxide (22 - 30 mmol/L) 26 Anion Gap (5 - 16) 7 BUN (9 - 20 mg/dL) 22 H Creatinine (0.7 - 1.2 mg/dL) 1.1 Estimated GFR (>60 ml/min) > 60 Glucose (65 - 99 mg/dL) 102 H Lactic Acid (0.7 - 2.1 mmol/L) 0.9 Calcium (8.4 - 10.2 mg/dL) 7.2 L Phosphorus (2.5 - 4.5 mg/dL) 3.6 Magnesium (1.6 - 2.3 mg/dL) 2.1 Total Bilirubin (0.2 - 1.3 mg/dL) 3.4 H AST (17 - 59 U/L) 85 H ALT (21 - 72 U/L) 44 Albumin (3.5 - 5.0 g/dL) 2.4 L Coagulation PT (9.4 - 12.5 SEC) 16.6 H INR (0.90 - 1.17) 1.59 H APTT (25 - 37 SEC) 35 Hematology CBC w Diff NO MAN DIFF REQ WBC (4.8 - 10.8 /CUMM) 7.7 RBC (4.70 - 6.10 /CUMM) 2.86 L Hgb (14.0 - 18.0 G/DL) 9.1 L Hct (42 - 52 %) 28.2 L MCV (80.0 - 94.0 FL) 98.7 H MCH (27.0 - 31.0 PG) 31.9 H RDW (11.5 - 14.5 %) 16.4 H Plt Count (130 - 400 /CUMM) 146 MPV (7.4 - 10.4 FL) 8.0 Gran % (42.2 - 75.2 %) 82.6 H Lymphocytes % (20.5 - 51.1 %) 7.1 L Monocytes % (1.7 - 9.3 %) 10.1 H Eosinophils % (0 - 5 %) 0.2 Basophils % (0.0 - 2.0 %) 0 L PUBS MCHC (33.0 - 37.0 G/DL) 32.3 L Immunology Absolute Granulocytes (1.4 - 6.5 /CUMM) 6.4 Absolute Lymphocytes (1.2 - 3.4 /CUMM) 0.5 L Absolute Monocytes (0.10 - 0.60 /CUMM) 0.8 H Absolute Eosinophils (0.0 - 0.7 /CUMM) 0 Absolute Basophils (0.0 - 0.2 /CUMM) 0 04/23 04/23 04/22 0400 0025 1830 Blood Gas pH (7.35 - 7.45 PH) 7.42 7.44 pCO2 (35 - 45 TORR) 41 35 pO2 (80 - 100 TORR) 100 125 H HCO3 (21 - 28 MEQ/L) 26 24 ABG O2 Sat (Measured) (>96.0 %) 97.0 98.0 P-50 (Temp Corrected) Y Y Carboxyhemoglobin (1.5 - 5.0 %) 0.3 L 0.1 L O2 Concentration % 55% 65 Temperature (97.0 - 100.0 FARH) 98.3 96.7 L Respiration Rate (BPM) 18 22 O2 Delivery Method ESPRIT ESPRIT Vent Mode AC AC Expiratory Pressure (CMH2O/P) 5 5 Tidal Volume (CC) 550 550 Chemistry Sodium (137 - 145 mmol/L) 135 L Potassium (3.5 - 5.1 mmol/L) 4.4 Chloride (98 - 107 mmol/L) 101 Carbon Dioxide (22 - 30 mmol/L) 26 Anion Gap (5 - 16) 8 BUN (9 - 20 mg/dL) 22 H Creatinine (0.7 - 1.2 mg/dL) 1.2 Estimated GFR (>60 ml/min) > 60 Glucose (65 - 99 mg/dL) 87 Calcium (8.4 - 10.2 mg/dL) 7.4 L Phosphorus (2.5 - 4.5 mg/dL) 4.1 Magnesium (1.6 - 2.3 mg/dL) 1.7 Total Bilirubin (0.2 - 1.3 mg/dL) 3.5 H AST (17 - 59 U/L) 73 H ALT (21 - 72 U/L) 45 Albumin (3.5 - 5.0 g/dL) 2.6 L Triglycerides (<150 mg/dL) 104 Cholesterol (< 200 MG/DL) 91 LDL Cholesterol, Calc (65 - 129 mg/dL) 49 L HDL Cholesterol (40 - 60 mg/dL) 22 L Cholesterol/HDL Ratio (0.00 - 4.88 %) 4.1 Hematology CBC w Diff NO MAN DIFF REQ WBC (4.8 - 10.8 /CUMM) 7.8 RBC (4.70 - 6.10 /CUMM) 2.70 L Hgb (14.0 - 18.0 G/DL) 8.7 L Hct (42 - 52 %) 27.0 L MCV (80.0 - 94.0 FL) 99.9 H MCH (27.0 - 31.0 PG) 32.3 H RDW (11.5 - 14.5 %) 16.0 H Plt Count (130 - 400 /CUMM) 138 MPV (7.4 - 10.4 FL) 8.2 Gran % (42.2 - 75.2 %) 80.6 H Lymphocytes % (20.5 - 51.1 %) 6.9 L Monocytes % (1.7 - 9.3 %) 12.2 H Eosinophils % (0 - 5 %) 0.1 Basophils % (0.0 - 2.0 %) 0.2 PUBS MCHC (33.0 - 37.0 G/DL) 32.3 L Immunology Absolute Granulocytes (1.4 - 6.5 /CUMM) 6.3 Absolute Lymphocytes (1.2 - 3.4 /CUMM) 0.5 L Absolute Monocytes (0.10 - 0.60 /CUMM) 1.0 H Absolute Eosinophils (0.0 - 0.7 /CUMM) 0 Absolute Basophils (0.0 - 0.2 /CUMM) 0 Miscellaneous Phlebotomy Draw Site [facility] 04/22 04/22 1737 1305 Blood Gas pH (7.35 - 7.45 PH) 7.46 H pCO2 (35 - 45 TORR) 27 L pO2 (80 - 100 TORR) 160 H HCO3 (21 - 28 MEQ/L) 19 L ABG O2 Sat (Measured) (>96.0 %) 98.0 Carboxyhemoglobin (1.5 - 5.0 %) 0.6 L O2 Concentration % 80% Respiration Rate (BPM) 28 O2 Delivery Method VENT Vent Mode AC Expiratory Pressure (CMH2O/P) 5 Tidal Volume (CC) 550 Chemistry Sodium (137 - 145 mmol/L) 133 L Potassium (3.5 - 5.1 mmol/L) 4.8 Chloride (98 - 107 mmol/L) 97 L Carbon Dioxide (22 - 30 mmol/L) 25 Anion Gap (5 - 16) 11 BUN (9 - 20 mg/dL) 19 Creatinine (0.7 - 1.2 mg/dL) 1.3 H Estimated GFR (>60 ml/min) 59 L Glucose (65 - 99 mg/dL) 139 H Calcium (8.4 - 10.2 mg/dL) 7.7 L Phosphorus (2.5 - 4.5 mg/dL) 4.1 Magnesium (1.6 - 2.3 mg/dL) 1.6 Total Bilirubin (0.2 - 1.3 mg/dL) 4.0 H AST (17 - 59 U/L) 85 H ALT (21 - 72 U/L) 45 Albumin (3.5 - 5.0 g/dL) 2.8 L Hematology CBC w Diff NO MAN DIFF REQ WBC (4.8 - 10.8 /CUMM) 6.9 RBC (4.70 - 6.10 /CUMM) 2.77 L Hgb (14.0 - 18.0 G/DL) 9.0 L Hct (42 - 52 %) 27.2 L MCV (80.0 - 94.0 FL) 98.0 H MCH (27.0 - 31.0 PG) 32.5 H RDW (11.5 - 14.5 %) 15.7 H Plt Count (130 - 400 /CUMM) 137 MPV (7.4 - 10.4 FL) 7.4 Gran % (42.2 - 75.2 %) 86.6 H Lymphocytes % (20.5 - 51.1 %) 5.4 L Monocytes % (1.7 - 9.3 %) 7.9 Eosinophils % (0 - 5 %) 0 Basophils % (0.0 - 2.0 %) 0.1 PUBS MCHC (33.0 - 37.0 G/DL) 33.2 Immunology Absolute Granulocytes (1.4 - 6.5 /CUMM) 6.0 Absolute Lymphocytes (1.2 - 3.4 /CUMM) 0.4 L Absolute Monocytes (0.10 - 0.60 /CUMM) 0.5 Absolute Eosinophils (0.0 - 0.7 /CUMM) 0 Absolute Basophils (0.0 - 0.2 /CUMM) 0 Miscellaneous Phlebotomy Draw Site LEFT RADIAL 04/22 04/22 04/22 04/22 1200 1138 1000 0952 Blood Gas pH (7.35 - 7.45 PH) 7.28 *L pCO2 (35 - 45 TORR) 49 H pO2 (80 - 100 TORR) 91 HCO3 (21 - 28 MEQ/L) 22 ABG O2 Sat (Measured) (>96.0 %) 94.0 L Carboxyhemoglobin (1.5 - 5.0 %) 1.2 L O2 Concentration % 3L O2 Delivery Method NC Chemistry Sodium (137 - 145 mmol/L) Cancelled 135 L Potassium (3.5 - 5.1 mmol/L) Cancelled 5.9 H Chloride (98 - 107 mmol/L) Cancelled 96 L Carbon Dioxide (22 - 30 mmol/L) Cancelled 26 Anion Gap (5 - 16) Cancelled 14 BUN (9 - 20 mg/dL) Cancelled 18 Creatinine (0.7 - 1.2 mg/dL) Cancelled 1.7 H Estimated GFR (>60 ml/min) 43 L Glucose (65 - 99 mg/dL) Cancelled 114 H Calcium (8.4 - 10.2 mg/dL) Cancelled 8.2 L Phosphorus (2.5 - 4.5 mg/dL) Cancelled 5.5 H Magnesium (1.6 - 2.3 mg/dL) Cancelled 1.4 L Total Bilirubin (0.2 - 1.3 mg/dL) Cancelled 4.8 H AST (17 - 59 U/L) Cancelled 94 H ALT (21 - 72 U/L) Cancelled 39 Albumin (3.5 - 5.0 g/dL) Cancelled 3.2 L Hematology CBC w Diff Cancelled Cancelled WBC Cancelled Cancelled RBC Cancelled Cancelled Hgb Cancelled Cancelled Hct Cancelled Cancelled MCV Cancelled Cancelled MCH Cancelled Cancelled RDW Cancelled Cancelled Plt Count Cancelled Cancelled MPV Cancelled Cancelled PUBS MCHC Cancelled Cancelled Miscellaneous Phlebotomy Draw Site LEFT RADIAL 04/22 04/22 9030 0779 Chemistry Sodium (137 - 145 mmol/L) 135 L Potassium (3.5 - 5.1 mmol/L) 5.8 H Chloride (98 - 107 mmol/L) 94 L Carbon Dioxide (22 - 30 mmol/L) 26 Anion Gap (5 - 16) 14 BUN (9 - 20 mg/dL) 19 Creatinine (0.7 - 1.2 mg/dL) 1.7 H Estimated GFR (>60 ml/min) 43 L BUN/Creatinine Ratio (7 - 25 %) 11.2 Lactic Acid (0.7 - 2.1 mmol/L) 4.1 H 5.3 H Total Bilirubin (0.2 - 1.3 mg/dL) 4.7 H Direct Bilirubin (< 0.4 mg/dL) 3.0 H AST (17 - 59 U/L) 95 H ALT (21 - 72 U/L) 48 Alkaline Phosphatase (< 127 U/L) 152 H Total Protein (6.3 - 8.2 g/dL) 6.5 Albumin (3.5 - 5.0 g/dL) 3.2 L Coagulation PT (9.4 - 12.5 SEC) 17.6 H INR (0.90 - 1.17) 1.67 H Hematology CBC w Diff MAN DIFF ORDERED WBC (4.8 - 10.8 /CUMM) 11.6 H RBC (4.70 - 6.10 /CUMM) 3.51 L Hgb (14.0 - 18.0 G/DL) 11.4 L Hct (42 - 52 %) 34.9 L MCV (80.0 - 94.0 FL) 99.5 H MCH (27.0 - 31.0 PG) 32.4 H RDW (11.5 - 14.5 %) 15.6 H Plt Count (130 - 400 /CUMM) 243 MPV (7.4 - 10.4 FL) 7.9 Gran % (42.2 - 75.2 %) 88.4 H Lymphocytes % (20.5 - 51.1 %) 2.4 L Monocytes % (1.7 - 9.3 %) 9.2 Eosinophils % (0 - 5 %) 0 Basophils % (0.0 - 2.0 %) 0 L Segmented Neutrophils (42.2 - 75.2 %) 77 H Band Neutrophils (0.0 - 5.0 %) 13 H Lymphocytes (20.5 - 51.1 %) 2 L Monocytes (1.7 - 9.3 %) 8 Platelet Estimate (ADEQUATE) ADEQUATE Normocytic RBCs VERIFIED Normochromic RBCs VERIFIED PUBS MCHC (33.0 - 37.0 G/DL) 32.6 L Immunology Absolute Granulocytes (1.4 - 6.5 /CUMM) 10.3 H Absolute Lymphocytes (1.2 - 3.4 /CUMM) 0.3 L Absolute Monocytes (0.10 - 0.60 /CUMM) 1.1 H Absolute Eosinophils (0.0 - 0.7 /CUMM) 0 Absolute Basophils (0.0 - 0.2 /CUMM) 0 Serology Hepatitis A IgM Ab (NONREACTIVE) NONREACTIVE Hep Bs Antigen (NONREACTIVE) NONREACTIVE Hep B Core IgM Ab Conf (NONREACTIVE) NONREACTIVE Hepatitis C Antibody (NONREACTIVE) NONREACTIVE HIV 1&2 Ab Western Blot (NONREACTIVE) NONREACTIVE Toxicology Acetaminophen (10.0 - 30.0 ug/mL) < 10.0 L 04/22 0605 Toxicology Urine Opiates Screen (>2000 NG/ML) 174.00 Methadone Screen (>300 NG/ML) < 40 Barbiturate Screen (>200 NG/ML) < 60 Ur Phencyclidine Scrn (>25 NG/ML) < 6.00 Amphetamines Screen (>1000 NG/ML) < 100 U Benzodiazepines Scrn (>200 NG/ML) < 85 Urine Cocaine Screen (>300 NG/ML) < 50 Urine Cannabis Screen (>50 NG/ML) 5.90 Urines Urinalysis LIGHT H Urine Color (YEL,AMB,STR) ORANG H Urine Clarity (CLEAR) HAZY H Urine pH (5.0 - 8.0) 5.5 Ur Specific Hobson (1.001 - 1.035) >= 1.030 Urine Protein (NEG,<30 MG/DL) 100 H Urine Ketones (NEG) 15 H Urine Nitrite (NEG) POS H Urine Bilirubin (NEG) POS@ICTO H Urine Urobilinogen (0.1 - 1.0 EU/dl) 2.0 H Ur Leukocyte Esterase (NEG) NEG Ur Microscopic SEDIMENT EXAMINED Urine RBC (0 - 5 /HPF) 3-5 Urine WBC (0 - 2 /HPF) 3-5 H Ur Epithelial Cells (NONE,FEW) MOD H Urine Crystals 1+ UR AC H Granular Casts (NONE /LPF) 1-3 H Urine Mucus (FEW,NONE) MANY H Urine Hemoglobin (NEG) NEG Urine Glucose (N MG/DL) NEG Assessment/Plan Assessment/Plan 50yo M POD#1 s/p exploratory laparoscopy with grahm plication of duodenal ulcer and core liver biopsy. - NPO - NGT to LWS - continue abx - TPN - continue CONNIE drains to bulb suction, reinforce or change dressings PRN - Strict I/O's - monitor urine output - care per critical care team Core Measures/Miscellaneous Venous Thromboembolism VTE Risk Factors: Acute medical illness, Age > 40, Obesity, Surgery VTE Contraindications: Abn Clotting Times VTE Prophylaxis Ordered Inpt Mechanical (ALPS/TEDS) VTE Diagnosis: No VTE Type: NONE VTE Confirmed by (Test): NONE Beta Terrence Is Beta Terrence a Home Med? Yes If Yes, Was This Ordered Today? No If No, Why Not? hypotension Antibiotics Is Patient on Antibiotics? Yes If Yes: infection
--- NOTE | 2016-04-24 08:06 | NUR ---
REC'D PT IN BED @1999. FAMILY AT BEDSIDE VISITING & UPDATED ON PT'S STATUS. INTUBATED/VENTED AC MODE W/RATE 18/VT 550/FIO2 <50%/ PEEP 5, LS CLEAR & <DIMINISHED AT THE BASES. SUCTIONED VIA ETT MIN WHITE THIN SECRETIONS & ORALLY SUCTIONED SCANT AMT OF SECRETIONS. SR ON THE MONITOR HR 80-90'S, SBP 90-120'S CORRELATING TO ALL CUFFS. L RADIAL DOUGLAS GOOD WAVEFORM/FLUSHED & ZEROED. ON LEVO GTT @5MCG/MIN. NGT TO R NARES TO LWS OF YELLOW BILE D/C & PATENT. ABD DISTENDED/SL SOFT. ASCITES+. NO BS. FC INSITU & DRAINING LOW/POOR DK PATRICK U/O MD AWARE. JPX3 >SEROSANG D/C EMPTYING QHOURLY. DRSG TO ABD SATURATED++ & DSG CHANGED. PT IS DROWSEY BUT SL AROUSABLE TO ASSESSMENT. NO C/O PAIN VOICED. FENT/ATIVAN GTT. ON ALBUMIN IV Q6HR. ON TPN/LIPIDS INFUSION VIA RIJ TLC. REMAINS NPO. CONT TO MONITOR.
--- NOTE | 2016-04-24 08:22 | RADIOLOGY REPORT ---
EXAMINATION: XR PORTABLE CHEST CLINICAL INFORMATION: Sepsis. Patient on ventilator. COMPARISON: CXR from 04/23/2016 TECHNIQUE: Portable view of the chest was obtained. FINDINGS: The tip of the endotracheal tube is 3.8 cm above the ching. Nasogastric tube extends below the diaphragm, into the stomach, and beyond the [id number]. The right internal jugular central venous catheter tip remains at the junction of the superior vena cava and right atrium. Lungs are hypoinflated. Again noted is platelike atelectasis of the right middle lobe along the minor fissure. Stable, mild enlargement of the cardiomediastinal silhouette. No acute pulmonary edema, pneumothorax, or overt pleural effusion. IMPRESSION: 1. Endotracheal tube in satisfactory position at 3.8 cm above the ching. 2. Lungs are hypoinflated and there is discoid atelectasis in the right middle lobe.
--- NOTE | 2016-04-24 08:25 | PN- General Surgery ---
Surgical Brief Attending Note Brief Attending Note: Patient seen at bedside he is alert and follows simple commands but is sedated. Family is at bedside as spoke to both his mother and sister. He remained stable although has potential for major complications due to his liver failure. All JPs are serous is no evidence of ongoing bile leak from the perforated ulcer. He is still on small Monopril pressors and IV fluids and antibiotics. Patient remains intubated with a fair ventilatory and respiratory numbers and hopefully can be weaned from the ventilator. His creatinine is 1.1 with low urine output. Skin is warm and dry and obviously is perfusing well. Medical management by the ICU team is greatly appreciated the suspicion is difficult to manage given his history of alcoholism and liver failure. The family is aware of the critical nature of his disease I've inform them that I will be available until Thursday at which time I will be signing out to the my partners.
--- NOTE | 2016-04-24 08:53 | PN- CRCU ---
See Addendum Subjective HPI/Critical Care Issues: pt seen and examined ros unobtainable secondary to critical illness, intubation bp stable on levophed fio2 50% on mechanical ventilation temp 99.3 CXR 1. Endotracheal tube in satisfactory position at 3.8 cm above the ching. 2. Lungs are hypoinflated and there is discoid atelectasis in the right middle lobe. Objective Current Medications: Current Medications Sig/Roberto Start time Last Medication Dose Route Stop Time Status Admin Albumin Human 25 GM Q8 04/22 0700 AC 04/24 IV 0631 Albuterol Sulfate 3 ML Q4P PRN 04/22 1145 AC 04/22 INH 1134 Ceftazidime 2,000 MG Q12H 04/22 1730 DC 04/23 IV 0446 Cyanocobalamin/ 1 BAG ONCE ONE 04/23 1330 DC 04/23 Thiamine/Pyridoxine IV 04/24 0249 1407 Dextrose/Water 1,000 ML Fat Emulsion 250 ML 1900 04/23 1900 AC 04/23 Intravenous IV 04/24 1859 1857 Fentanyl Citrate 1,000 MCG Q24H 04/22 1030 AC 04/24 Dextrose/Water 250 ML IV 0716 Hydromorphone HCl 2 MG Q6P PRN 04/22 0930 AC IV Lorazepam 50 MG Q24H 04/23 1315 AC 04/24 Sodium Chloride 500 ML IV 0830 Lorazepam 50 MG Q24H 04/23 0745 DC 04/23 Dextrose/Water 500 ML IV 0750 Lorazepam 0 Q1P PRN 04/22 0700 AC 04/23 IV 0547 Magnesium Sulfate 1 GM ONCE ONE 04/23 0845 DC 04/23 Dextrose/Water 100 ML IV 04/23 1244 0951 Magnesium Sulfate 1 GM ONCE ONE 04/23 0800 DC 04/23 Dextrose/Water 100 ML IV 04/23 1159 0822 Meropenem 1 GM IQ8 04/23 1600 AC 04/24 IV 0758 Metronidazole 500 MG Q8H 04/22 1300 DC 04/23 N/A 1 UNIT IV 0444 Norepinephrine 4 MG Q24H 04/22 1000 AC 04/23 Sodium Chloride 250 ML IV 1718 Ondansetron HCl 4 MG Q8P PRN 04/22 0600 AC IV Pantoprazole Sodium 40 MG BID 04/22 2200 AC 04/23 IV 2221 Phytonadione 10 MG ONE ONE 04/23 1415 DC 04/23 SC 04/23 1416 1435 Phytonadione 1 MG ONE ONE 04/23 1315 CAN SC 04/23 1316 Sodium Chloride 1,000 ML Q8H 04/23 0115 AC 04/24 IV 0139 Total Parenteral 1 UNIT ONE 04/23 1900 AC 04/23 Nutrition IV 04/24 1859 1857 Vancomycin HCl 2,000 MG DAILY 04/22 1000 DC 04/23 Sodium Chloride 500 ML IV 1032 Vital Signs & I&O Last 24 Hrs of Vitals and I&O: Vital Signs Date Time Temp Pulse Resp B/P Pulse O2 O2 Flow FiO2 Ox Delivery Rate 04/24 0820 45 04/24 0600 98 18 101/58 04/24 0554 50 04/24 0400 99.3 82 18 110/50 04/24 0400 95 Ventilator 50% 04/24 0319 50 04/24 0200 82 18 104/49 04/24 0042 50 04/24 0000 99.1 80 18 107/48 04/24 0000 99.1 80 18 10748 96 Ventilator 50% 04/24 0000 96 Ventilator 50% 04/23 2222 50 04/23 2200 92 18 97/48 04/23 2000 98.9 77 18 104/45 04/23 2000 97 Ventilator 50% 04/23 1937 55 04/23 1800 99.2 104 18 97/37 04/23 1718 89 105/53 04/23 1620 55 04/23 1600 98.9 100 23 100/60 04/23 1600 95 Ventilator 55% 04/23 1600 98.9 100 23 100/60 95 Ventilator 55% 04/23 1428 55 04/23 1400 99.5 85 18 104/64 04/23 1200 98.8 92 18 110/52 04/23 1200 94 Ventilator 55% 04/23 1200 98.8 92 18 11052 94 Ventilator 55% 04/23 1150 55 04/23 1000 86 18 98/41 Intake & Output 04/24 1600 04/24 0800 04/24 0000 Intake Total 1487.0 1969.0 Output Total 1380 1920 Balance 107.0 49.0 Intake, IV 1024 1759 Intake, Lipid 80.0 36.0 Intake, Oral 0 Intake, 383 174 TPN/PPN Number 0 0 Bowel Movements Output, 1110 1620 Drainage Output, 100 100 Gastric Drainage Output, Urine 170 200 Exam Other Physical Findings: gen arousable heent ett, right IJ TLC cvs s1 s2 lungs transmitted abd obese, micheline drains, distended, bs+ ext edematous Results Last 24 Hrs of Lab Results: Laboratory Tests 04/24/16 0455: pH 7.41, pCO2 40, pO2 92, HCO3 25, ABG O2 Sat (Measured) 96.0, P-50 (Temp Corrected) Y, Carboxyhemoglobin 0.3 L, O2 Concentration % 50%, Temperature 99.3 , Respiration Rate 18, O2 Delivery Method ESPRIT, Vent Mode AC, Expiratory Pressure 5, Tidal Volume 550, Phlebotomy Draw Site [employer] 04/24/16 0417: Anion Gap 8, Estimated GFR > 60, Glucose 119 H, Calcium 7.5 L, Phosphorus 3.1, Magnesium 2.1, Total Bilirubin 3.2 H, AST 107 H, ALT 42, Albumin 2.6 L, CBC w Diff NO MAN DIFF REQ, RBC 2.83 L, MCV 99.1 H, MCH 32.4 H, RDW 16.4 H, MPV 7.7, Gran % 79.4 H, Lymphocytes % 9.2 L, Monocytes % 10.5 H, Eosinophils % 0.5, Basophils % 0.4, PUBS MCHC 32.7 L, Absolute Granulocytes 6.1, Absolute Lymphocytes 0.7 L, Absolute Monocytes 0.8 H, Absolute Eosinophils 0, Absolute Basophils 0 04/23/16 1500: Anion Gap 7, Estimated GFR > 60, Glucose 102 H, Calcium 7.2 L, Phosphorus 3.6, Magnesium 2.1, Total Bilirubin 3.4 H, AST 85 H, ALT 44, Albumin 2.4 L, CBC w Diff NO MAN DIFF REQ, RBC 2.86 L, MCV 98.7 H, MCH 31.9 H, RDW 16.4 H, MPV 8.0, Gran % 82.6 H, Lymphocytes % 7.1 L, Monocytes % 10.1 H, Eosinophils % 0.2, Basophils % 0 L, PUBS MCHC 32.3 L, Absolute Granulocytes 6.4, Absolute Lymphocytes 0.5 L, Absolute Monocytes 0.8 H, Absolute Eosinophils 0, Absolute Basophils 0 04/23/16 1113: Lactic Acid 0.9, PT 16.6 H, INR 1.59 H, APTT 35 Impression/Plan Impression/Plan Impression/Plan: Impression 50 year old man * perforated viscus s/p repair * resolved antonio * acute hypoxemic respiratory failure secondary to acute illness * septic shock secondary to ascitic GNR/GPC/alpha strep * coagulopathy - likely secondary to infection Plan Respiratory * continue mechanical ventilation * goal fio2 40% to maintain spo2 >92% * abg 7.41/40/92 ID * septic shock secondary to ascitic GNR/GPC/alpha strep * ID consultation appreciated * Meropenem 1gm IV q8h CVS * septic shock * hemodynamic monitoring * vasopressors to maintain a MAP >65 Heme * coagulopathy INR 1.59, likely secondary to sepsis, s/p vitamin K * monitor cbc, coags, no active bleeding Metabolic * ins/outs * creatinine, electrolytes monitoring * aaron in place * monitor LFTs Alimentary * TPN, OGT, f/u surgical recommendations Neuro * sedation as needed to maintain comfort, ativan/fentanyl/dilaudid DVT prophylaxis at all times - if no surgical objection, would need chemical prophylaxis with heparin subcutaneously GI prophylaxis - Protonix 40mg IV BID
--- NOTE | 2016-04-24 10:53 | PN- Resident CRCU ---
Subjective HPI/CRCU Issues: patient is a 50 y/o Male, with a significant past medical history of hypertension, hyperlipidemia, GERD, diverticulosis, degenerative joint disease, a vascular necrosis status post hip replacement, fatty liver disease, alcohol abuse presented with chronic alcohol abuse, nausea, vomting, abd distension and pain which got worse so he presented to ED on 04/21/2016. On Evaluation CT scan showed pneumoperitoneum, moderate ascites.On examination the abdomen was distended and tender to palpation , so diagnostic paracentesis was done which showed WBC 9504, RBC 2156. Because of the perforation, It seems that patient developed the secondary bacterial peritonitis. We took surgical consultation. The next couple of hours patient went into septicemia and shock. So he was given IV fluids and prophylactic antibiotics including ceftriaxone metronidazole and vancomycin. We catheterized the patient. Despite of these measures his blood pressure going down , so we took surgical consultation and plan for emergent surgery. Meantime, we intubated the patient and put him on mechanical ventilation(assist control mode, TV-500, respiratory rate 28, PEEP 5, FiO2 100%), triple-lumen catheter was placed in the right side of jugular vein. Patients blood pressure was continuosly going down, so we started him on Levothroid/vasopressin. We also started him on fentanyl and propofol drip. The culture of the ascites fluid came back positive for gram-negative. We took the consult from infectious disease specialist/Abdullahi Osuna MD. He advised to change ceftriaxone to ceftazidime and advised to wait for sensitivities report. Patient went to surgery on 04/22/2016. In postop, His blood pressure was 119/62. He is improving after surgery. We are decreasing the amount of pressers required to keep his blood pressure normal. CRCU Issues - POD -2 Perforated duodenal ulcer s/p exploratory laparoscopy with grahm plication of duodenal ulcer Secondary bacterial Peritonitis Septic shock with MODS/ MATT improving/ Lactic acidosis improving/ Alcoholic hepatitis with transaminitis Ascitis Sigmoid Diverticulitis Hypertension Hyperlipidemia Morbidly Obese 24 Hour Events: Overnight, It is uneventful. Patient is on ventilator and we are decreasing the FiO2. Patient is on pressors, norepinephrine, and we are decreasing it to down and keeping the blood pressure between 100-110. Objective Vital Signs & I&O Last 8 Hrs of Vitals and I&O: Max Min BP 120/60 110/64 HR 80 98 Temp 99 99 RR 18 18 Exam General Appearance: comfortable, intubated, obese, responds to commands Head: atraumatic, normal appearance, swelling, tenderness Ears, Nose, Throat: cannot be assessed because patient is intubated Neck: normal inspection, supple Respiratory: normal breath sounds, chest non-tender, no respiratory distress, quiet respiration, mild crepts on right side Cardiovascular: regular rate/rhythm, edema Gastrointestinal: soft, distention, tenderness, no Bowel sounds Extremities: pedal edema, bilateral pedal edema Current Medications: Current Medications Sig/Roberto Start time Last Medication Dose Route Stop Time Status Admin Albumin Human 25 GM Q8 04/22 0700 04/24 IV 0631 Albuterol Sulfate 3 ML Q4P PRN 04/22 1145 AC 04/22 INH 1134 Cyanocobalamin/ 1 BAG ONCE ONE 04/23 1330 OR 04/23 Thiamine/Pyridoxine IV 04/24 0249 1407 Dextrose/Water 1,000 ML Fat Emulsion 300 ML 1900 04/24 1900 AC Intravenous IV 04/25 1859 Fat Emulsion 250 ML 1900 04/23 1900 AC 04/23 Intravenous IV 04/24 1859 1857 Fentanyl Citrate 1,000 MCG Q14H 04/24 1700 AC Dextrose/Water 250 ML IV Fentanyl Citrate 1,000 MCG Q24H 04/24 1315 AC Dextrose/Water 250 ML IV 04/24 1659 Fentanyl Citrate 1,000 MCG Q24H 04/22 1030 OR 04/24 Dextrose/Water 250 ML IV 0716 Heparin Sodium 5,000 UNIT Q8 04/24 1400 AC (Porcine) SC Hydromorphone HCl 2 MG Q6P PRN 04/22 0930 IV Lorazepam 50 MG Q24H 04/23 1315 04/24 Sodium Chloride 500 ML IV 0830 Lorazepam 0 Q1P PRN 04/22 0700 04/23 IV 0547 Meropenem 1 GM IQ8 04/23 1600 AC 04/24 IV 0758 Norepinephrine 4 MG Q24H 04/22 1000 04/24 Sodium Chloride 250 ML IV 0919 Ondansetron HCl 4 MG Q8P PRN 04/22 0600 IV Pantoprazole Sodium 40 MG BID 04/22 2200 AC 04/24 IV 0920 Phytonadione 10 MG ONCE ONE 04/24 1130 DC 04/24 SC 04/24 1131 1212 Sodium Chloride 1,000 ML Q8H 04/23 0115 AC 04/24 IV 0920 Total Parenteral 1 UNIT ONE 04/24 1900 AC Nutrition IV 04/25 1859 Total Parenteral 1 UNIT ONE 04/23 1900 AC 04/23 Nutrition IV 04/24 Impression/Plan Impression/Problem List Impression: Impression and Plan - Patient is arousable, responding to command, c/o pain. He is on fentanyl drip, and levofed. POD-3 Ventilator -D3, Left Radial artery line, CONNIE drains-3 - D3 Foleys cathter -D3, urine is having blood/ hematuria Respiratory He is on ventilator, Ventilator Settings is -AC, TV-550, IPAP -24, RR-18, PEEP-5 , Fio2 45. wheezing in both lungs ABG showed -PH-7.41,PCo2-40,PO2-92, CXR showed - 1. 1. Endotracheal tube in satisfactory position at 3.8 cm above the ching. 2. Lungs are hypoinflated and there is discoid atelectasis in the right middle lobe. Infectious Ascitic fluids is growing -enterobacter cloacae and alpha strept. We will follow ID rcms We will stop ceftazidime and Vancomycin, and start him on Meopenem 1g iv 8hrly. Hematology - Hb-9.2, Megaloblastic anemia due to alcohol, added up with septicemia and shock We will suplement MultiVit, Thiamine, folic acid. Cardiology Patient is responding to vasopressor, we will taper according to protocol. His HR-94 BP -112/53 , EKG is NSR Gastroenterology There are 3 CONNIE drains -260 Abdoman is soft, still no bowel sounds on examiantion We will do strict Intake output Charting We will follow GI rcms Patient is undergoing alcohol withdrawl, we will give Ativan according to CIWA protocol. We will give Vit K for total 3 days. Urology BUN -24 Cr-1.1 Urine output in last 24 hrs is 690cc We will continue IV fluids -75ml/hrs Strict I/O charting Endocrine TSH -8.9, T4 -1.85 It seems patient is having Sick Euthyroid syndrome. We discussed with endocrinology. We will repeat TFT after patient get recovered. Skin There are multiple dressings on the skin including right internal jugular, abdomen for drain, Diet -we started patient on TPN as advised by dietitian. DVT prophylaxis -ALPS/ Heparin CODE STATUS-full code Problem List: 1. Perforation bowel 2. Peritonitis 3. Abdominal pain 4. Hypomagnesemia 5. Alcoholic hepatitis Pain Ratin Pain Location: abdoman Tomorrow's Labs & Rationales: cbc,icu bundle,cxr,abg Plan DVT/Prophylaxis: mechanical
--- NOTE | 2016-04-24 11:00 | PN- Infect Dx ---
Subjective Subjective: Afebrile. He complains of discomfort from the ET tube. Blood pressure stable on decreasing doses of Levophed. Objective Last 24 Hrs of Vital Signs/I&O Vital Signs Date Time Temp Pulse Resp B/P Pulse O2 O2 Flow FiO2 Ox Delivery Rate 04/24 0919 94 112/53 04/24 0820 45 04/24 08 98.9 96 18 120/70 04/24 0800 94 Ventilator 45% 04/24 08 98.9 96 18 120/70 95 Ventilator 45% 04/24 0600 98 18 101/58 04/24 0554 50 04/24 0400 99.3 82 18 110/50 04/24 0400 95 Ventilator 50% 04/24 0319 50 04/24 0200 82 18 104/49 04/24 0042 50 04/24 0000 99.1 80 18 107/48 04/24 0000 99.1 80 18 107/48 96 Ventilator 50% 04/24 0000 96 Ventilator 50% 04/23 2222 50 04/23 2200 92 18 97/48 04/23 2000 98.9 77 18 104/45 04/23 2000 97 Ventilator 50% 04/23 1937 55 04/23 1800 99.2 104 18 97/37 04/23 1718 89 105/53 04/23 1620 55 04/23 1600 98.9 100 23 100/60 04/23 1600 95 Ventilator 55% 04/23 1600 98.9 100 23 100/60 95 Ventilator 55% 04/23 1428 55 04/23 1400 99.5 85 18 104/64 04/23 1200 98.8 92 18 110/52 04/23 1200 94 Ventilator 55% 04/23 1200 98.8 92 18 110/52 94 Ventilator 55% 04/23 1150 55 Intake & Output 04/24 1600 04/24 0800 04/24 0000 Intake Total 1487.0 1969.0 Output Total 1380 1920 Balance 107.0 49.0 Intake, IV 1024 1759 Intake, Lipid 80.0 36.0 Intake, Oral 0 Intake, 383 174 TPN/PPN Number 0 0 Bowel Movements Output, 1110 1620 Drainage Output, 100 100 Gastric Drainage Output, Urine 170 200 Physical Exam Other Physical Findings: He appears comfortable on the ventilator in no acute distress Neck right IJ triple lumen catheter with no inflammation at the site Lungs scattered rhonchi bilaterally Heart regular rhythm with no murmur Abdomen is obese, distended, CONNIE drains in place, no bowel sounds audible Extremities trace edema both lower extremities Ann catheter remains in place Results Last 24 Hours of Lab Results: Laboratory Tests 04/24 04/24 0450 0417 Blood Gas pH (7.35 - 7.45 PH) 7.41 pCO2 (35 - 45 TORR) 40 pO2 (80 - 100 TORR) 92 HCO3 (21 - 28 MEQ/L) 25 ABG O2 Sat (Measured) (>96.0 %) 96.0 P-50 (Temp Corrected) Y Carboxyhemoglobin (1.5 - 5.0 %) 0.3 L O2 Concentration % 50% Temperature (97.0 - 100.0 FARH) 99.3 Respiration Rate (BPM) 18 O2 Delivery Method ESPRIT Vent Mode AC Expiratory Pressure (CMH2O/P) 5 Tidal Volume (CC) 550 Chemistry Sodium (137 - 145 mmol/L) 134 L Potassium (3.5 - 5.1 mmol/L) 3.9 Chloride (98 - 107 mmol/L) 101 Carbon Dioxide (22 - 30 mmol/L) 25 Anion Gap (5 - 16) 8 BUN (9 - 20 mg/dL) 24 H Creatinine (0.7 - 1.2 mg/dL) 1.1 Estimated GFR (>60 ml/min) > 60 Glucose (65 - 99 mg/dL) 119 H Calcium (8.4 - 10.2 mg/dL) 7.5 L Phosphorus (2.5 - 4.5 mg/dL) 3.1 Magnesium (1.6 - 2.3 mg/dL) 2.1 Total Bilirubin (0.2 - 1.3 mg/dL) 3.2 H AST (17 - 59 U/L) 107 H ALT (21 - 72 U/L) 42 Albumin (3.5 - 5.0 g/dL) 2.6 L Hematology CBC w Diff NO MAN DIFF REQ WBC (4.8 - 10.8 /CUMM) 7.7 RBC (4.70 - 6.10 /CUMM) 2.83 L Hgb (14.0 - 18.0 G/DL) 9.2 L Hct (42 - 52 %) 28.0 L MCV (80.0 - 94.0 FL) 99.1 H MCH (27.0 - 31.0 PG) 32.4 H RDW (11.5 - 14.5 %) 16.4 H Plt Count (130 - 400 /CUMM) 147 MPV (7.4 - 10.4 FL) 7.7 Gran % (42.2 - 75.2 %) 79.4 H Lymphocytes % (20.5 - 51.1 %) 9.2 L Monocytes % (1.7 - 9.3 %) 10.5 H Eosinophils % (0 - 5 %) 0.5 Basophils % (0.0 - 2.0 %) 0.4 PUBS MCHC (33.0 - 37.0 G/DL) 32.7 L Immunology Absolute Granulocytes (1.4 - 6.5 /CUMM) 6.1 Absolute Lymphocytes (1.2 - 3.4 /CUMM) 0.7 L Absolute Monocytes (0.10 - 0.60 /CUMM) 0.8 H Absolute Eosinophils (0.0 - 0.7 /CUMM) 0 Absolute Basophils (0.0 - 0.2 /CUMM) 0 Miscellaneous Phlebotomy Draw Site [place] 04/23 04/23 1500 1113 Chemistry Sodium (137 - 145 mmol/L) 134 L Potassium (3.5 - 5.1 mmol/L) 4.0 Chloride (98 - 107 mmol/L) 100 Carbon Dioxide (22 - 30 mmol/L) 26 Anion Gap (5 - 16) 7 BUN (9 - 20 mg/dL) 22 H Creatinine (0.7 - 1.2 mg/dL) 1.1 Estimated GFR (>60 ml/min) > 60 Glucose (65 - 99 mg/dL) 102 H Lactic Acid (0.7 - 2.1 mmol/L) 0.9 Calcium (8.4 - 10.2 mg/dL) 7.2 L Phosphorus (2.5 - 4.5 mg/dL) 3.6 Magnesium (1.6 - 2.3 mg/dL) 2.1 Total Bilirubin (0.2 - 1.3 mg/dL) 3.4 H AST (17 - 59 U/L) 85 H ALT (21 - 72 U/L) 44 Albumin (3.5 - 5.0 g/dL) 2.4 L Coagulation PT (9.4 - 12.5 SEC) 16.6 H INR (0.90 - 1.17) 1.59 H APTT (25 - 37 SEC) 35 Hematology CBC w Diff NO MAN DIFF REQ WBC (4.8 - 10.8 /CUMM) 7.7 RBC (4.70 - 6.10 /CUMM) 2.86 L Hgb (14.0 - 18.0 G/DL) 9.1 L Hct (42 - 52 %) 28.2 L MCV (80.0 - 94.0 FL) 98.7 H MCH (27.0 - 31.0 PG) 31.9 H RDW (11.5 - 14.5 %) 16.4 H Plt Count (130 - 400 /CUMM) 146 MPV (7.4 - 10.4 FL) 8.0 Gran % (42.2 - 75.2 %) 82.6 H Lymphocytes % (20.5 - 51.1 %) 7.1 L Monocytes % (1.7 - 9.3 %) 10.1 H Eosinophils % (0 - 5 %) 0.2 Basophils % (0.0 - 2.0 %) 0 L PUBS MCHC (33.0 - 37.0 G/DL) 32.3 L Immunology Absolute Granulocytes (1.4 - 6.5 /CUMM) 6.4 Absolute Lymphocytes (1.2 - 3.4 /CUMM) 0.5 L Absolute Monocytes (0.10 - 0.60 /CUMM) 0.8 H Absolute Eosinophils (0.0 - 0.7 /CUMM) 0 Absolute Basophils (0.0 - 0.2 /CUMM) 0 Last 24 Hours of Garcia Results: Blood cultures 2 April 22 negative Ascitic fluid April 22 from paracentesis in the ER positive for alpha strep and Enterobacter sensitive to Meropenem OR cultures April 22 negative so far Urine culture April 22 negative Sputum culture April 22 positive for scant growth of mold Recent Imaging Studies: Chest x-ray April 24 discoid atelectasis in the right middle lobe Assessment/Plan Impression: Overall improving status post laparoscopic Clint plication of a perforated duodenal ulcer 2 days ago in this 50-year-old man with heavy alcohol abuse presenting with severe sepsis. His blood pressure is improving, with decreasing pressor requirements. He remains afebrile with white blood cell count normal now on Meropenem, with cultures of the ascitic fluid obtained on the paracentesis in the ER positive for Enterobacter and alpha strep. The isolation of mold from the sputum culture is of unclear significance and likely represents colonization or contamination. Suggestion: 1. Follow-up final OR cultures 2. Would consider a PICC if anticipate he will require a prolonged course of TPN 3. Continue Meropenem
--- NOTE | 2016-04-24 11:29 | NUR ---
RESUMED PT CARE AT 0730. PT REMAINS ON FENTANYL 75MCG AND ATIVAN 2MG PER HR FOR AN SAS OF 4. HE IS DROWSY AROUSABLE AND FOLLOWING SIMPLE COMMANDS AND ABLE TO NOD Y/N. PT HAS PULSES X 4 EXTREMETIES, STRONG HAND GRASPS AND WEAK PEDAL PUSHES. PT IS SR 80-90'S WITH PVCS. BP IS CURRENTLY IN THE 90'S AND LEVOPHED HAS BEEN TITRATED OFF. CURRENTLY MONITORING BP Q 15 MINUTES. MAP IS 50-60'S. CVP 12-15. L RADIAL DOUGLAS REMAINS INTACT W OCCASIONALLY DAMPENED WAVEFORM. PT HAS MINIMAL WHITE SECRETIONS VIA #8 ETT AT 22 CM. FIO2 HAS BEEN DECREASED TO 45% AND PT HAS BEEN 94-95%. SCATTERED RHONCHI IS PRESENT. SCANT ORAL SECRETIONS W ORAL HYGIENE PROVIDED FREQUENTLY. CURRENT VENT SETTINGS ARE AC 18 550 45 5. ABDOMEN IS DISTENDEND W - BS. NGT IN PLACE AT 60CM TO LWS AND IS DRAINING YELLOW/RED TINGE SECRETIONS. 3 JPS INSITU, W HEAVY SS DRAINAGE, REQUIRING FREQ. EMPTYING. DRESSINGS ARE SATURATED WITH SS DRAINAGE AND CHANGED FREQUENTLY. DR THOMAS AND NICOLA AWARE. STERLING REMAINS INSITU. UO IS MINIMAL, ORANGE, 45ML MAX/HR. SKIN IN INTACT W GENERALIZED EDMEA. R LE > L. RIJ INSITU. TPN AND LIPIDS INFUSING. Q 6 HOUR ACCUCHECKS PERFORMED. CURRENT BS 130. PT CONTINUES TO BE ON NS IVF AT 50ML/HR, AND CONTINUES MEROPENUM IV ABX. FAMILY UPDATED BY DR PETERSEN. PASSWORD APPLIED TO PT ACCT; PHILLIP.
--- NOTE | 2016-04-24 14:52 | PN- Gastroenterology ---
Assessment/Plan Assessment/Recommendations: Assessment: Mr. Corona is a 50 year old male with a history of etoh abuse/ cirrhosis admitted with a perforated viscus s/p surgical repair who remains intubated and critically ill, but it is encouraging that his pressor requirement is decreasing and he has remained afebrile. His bilirubin remains mildly elevated and his drains continue to put out fluid some of which is likely ascites from underlying cirrhosis. Recommendations: 1. Surgical follow up to manage wounds/drains etc 2. Continue to taper pressors as tolearted 3. Follow LFTs and INR 4. Continue IV abumin for another 24 hours and will consider d/c'ing then if kidney function remains stable. 5. Continue TPN for now; advance diet as per surgeries recommendations 6. Supportive respiratory care as per critical care team. 7. Continue IV protonix 8. Follow up cultures and tailor abx as indicated Overall prognosis remains guarded. I will continue to follow this patient and make further recommendations based on his clinical course and repeat blood work. Problem List: 1. Alcoholic hepatitis 2. EtOH dependence 3. Perforation bowel Subjective Subjective: Pt remains intubated and sedated. Drains in place continue to drain about 150cc of serosanginous fluid. Afebrile and hemodynamically stable. Still on pressors , but being weaned down. Objective Vital Signs and I&Os Vital Signs Date Time Temp Pulse Resp B/P Pulse O2 O2 Flow FiO2 Ox Delivery Rate 04/24 1200 98.8 90 18 108/64 04/24 1146 40 04/24 0919 94 112/53 04/24 0820 45 04/24 0800 98.9 96 18 120/70 04/24 0800 94 Ventilator 45% 04/24 0800 98.9 96 18 120/70 95 Ventilator 45% 04/24 0600 98 18 101/58 04/24 0554 50 04/24 0400 99.3 82 18 110/50 04/24 0400 95 Ventilator 50% 04/24 0319 50 04/24 0200 82 18 104/49 04/24 0042 50 04/24 0000 99.1 80 18 107/48 04/24 0000 99.1 80 18 107/48 96 Ventilator 50% 04/24 0000 96 Ventilator 50% 04/232 50 04/23 2200 92 18 97/48 04/23 2000 98.9 77 18 104/45 04/23 2000 97 Ventilator 50% 04/23 1937 55 04/23 1800 99.2 104 18 97/37 04/23 1718 89 105/53 04/23 1620 55 04/23 1600 98.9 100 23 10060 04/23 1600 95 Ventilator 55% 04/23 1600 98.9 100 23 95 Ventilator 55% Intake & Output 04/24 1600 04/24 0400 04/23 1600 04/23 0400 04/22 1600 04/22 040 Intake Total 1487.0 1969.0 3666 1735 4029 Output Total 1380 1920 3615 1435 700 Balance 107.0 49.0 51 300 3329 Intake, Blood 400 613 Product Intake, IV 1024 1759 3266 1735 3416 Intake, Lipid 80.0 36.0 Intake, Oral 0 0 0 Intake, 383 174 TPN/PPN Number 0 0 0 Bowel Movements Output, 1110 1620 2965 910 Drainage Output, 100 100 160 150 400 Gastric Drainage Output, Urine 170 200 490 375 300 Patient 300 lb 300 lb 300 lb Weight Physical Exam General Appearance: well developed/nourished, sedated, intubated, obese Head: atraumatic Ears, Nose, Throat: normal pharynx, normal ENT inspection Neck: normal inspection, supple Respiratory: decreased breath sounds Cardiovascular: regular rate/rhythm Abdomen: soft, distention, drains in place c/d/i Skin: intact, normal color Current Medications: Current Medications Sig/Roberto Start time Last Medication Dose Route Stop Time Status Admin Albumin Human 25 GM Q8 04/22 0700 AC 04/24 IV 0631 Albuterol Sulfate 3 ML Q4P PRN 04/22 1145 AC 04/22 INH 1134 Cyanocobalamin/ 1 BAG ONCE ONE 04/23 1330 DC 04/23 Thiamine/Pyridoxine IV 04/24 0249 1407 Dextrose/Water 1,000 ML Fat Emulsion 300 ML 1900 04/24 1900 AC Intravenous IV 04/25 1859 Fat Emulsion 250 ML 1900 04/23 1900 AC 04/23 Intravenous IV 04/24 1859 1857 Fentanyl Citrate 1,000 MCG Q14H 04/24 1700 AC Dextrose/Water 250 ML IV Fentanyl Citrate 1,000 MCG Q24H 04/24 1315 AC Dextrose/Water 250 ML IV 04/24 1659 Fentanyl Citrate 1,000 MCG Q24H 04/22 1030 DC 04/24 Dextrose/Water 250 ML IV 0716 Heparin Sodium 5,000 UNIT Q8 04/24 1400 AC (Porcine) SC Hydromorphone HCl 2 MG Q6P PRN 04/22 0930 AC IV Lorazepam 50 MG Q24H 04/23 1315 AC 04/24 Sodium Chloride 500 ML IV 0830 Lorazepam 0 Q1P PRN 04/22 0700 AC 04/23 IV 0547 Meropenem 1 GM IQ8 04/23 1600 AC 04/24 IV 0758 Norepinephrine 4 MG Q24H 04/22 1000 AC 04/24 Sodium Chloride 250 ML IV 0919 Ondansetron HCl 4 MG Q8P PRN 04/22 0600 AC IV Pantoprazole Sodium 40 MG BID 04/22 2200 AC 04/24 IV 0920 Phytonadione 10 MG ONCE ONE 04/24 1130 DC 04/24 SC 04/24 1131 1212 Sodium Chloride 1,000 ML Q8H 04/23 0115 AC 04/24 IV 0920 Total Parenteral 1 UNIT ONE 04/24 190 AC Nutrition IV 04/25 185 Total Parenteral 1 UNIT ONE 04/23 1900 AC 04/23 Nutrition IV 04/24 185 1857 Results Pertinent Lab Results: Laboratory Tests 04/24 04/24 0455 0417 Blood Gas pH (7.35 - 7.45 PH) 7.41 pCO2 (35 - 45 TORR) 40 pO2 (80 - 100 TORR) 92 HCO3 (21 - 28 MEQ/L) 25 ABG O2 Sat (Measured) (>96.0 %) 96.0 P-50 (Temp Corrected) Y Carboxyhemoglobin (1.5 - 5.0 %) 0.3 L O2 Concentration % 50% Temperature (97.0 - 100.0 FARH) 99.3 Respiration Rate (BPM) 18 O2 Delivery Method ESPRIT Vent Mode AC Expiratory Pressure (CMH2O/P) 5 Tidal Volume (CC) 550 Chemistry Sodium (137 - 145 mmol/L) 134 L Potassium (3.5 - 5.1 mmol/L) 3.9 Chloride (98 - 107 mmol/L) 101 Carbon Dioxide (22 - 30 mmol/L) 25 Anion Gap (5 - 16) 8 BUN (9 - 20 mg/dL) 24 H Creatinine (0.7 - 1.2 mg/dL) 1.1 Estimated GFR (>60 ml/min) > 60 Glucose (65 - 99 mg/dL) 119 H Calcium (8.4 - 10.2 mg/dL) 7.5 L Phosphorus (2.5 - 4.5 mg/dL) 3.1 Magnesium (1.6 - 2.3 mg/dL) 2.1 Total Bilirubin (0.2 - 1.3 mg/dL) 3.2 H AST (17 - 59 U/L) 107 H ALT (21 - 72 U/L) 42 Albumin (3.5 - 5.0 g/dL) 2.6 L Prealbumin (17.6 - 36.0 mg/dL) 4.8 L Hematology CBC w Diff NO MAN DIFF REQ WBC (4.8 - 10.8 /CUMM) 7.7 RBC (4.70 - 6.10 /CUMM) 2.83 L Hgb (14.0 - 18.0 G/DL) 9.2 L Hct (42 - 52 %) 28.0 L MCV (80.0 - 94.0 FL) 99.1 H MCH (27.0 - 31.0 PG) 32.4 H RDW (11.5 - 14.5 %) 16.4 H Plt Count (130 - 400 /CUMM) 147 MPV (7.4 - 10.4 FL) 7.7 Gran % (42.2 - 75.2 %) 79.4 H Lymphocytes % (20.5 - 51.1 %) 9.2 L Monocytes % (1.7 - 9.3 %) 10.5 H Eosinophils % (0 - 5 %) 0.5 Basophils % (0.0 - 2.0 %) 0.4 PUBS MCHC (33.0 - 37.0 G/DL) 32.7 L Immunology Absolute Granulocytes (1.4 - 6.5 /CUMM) 6.1 Absolute Lymphocytes (1.2 - 3.4 /CUMM) 0.7 L Absolute Monocytes (0.10 - 0.60 /CUMM) 0.8 H Absolute Eosinophils (0.0 - 0.7 /CUMM) 0 Absolute Basophils (0.0 - 0.2 /CUMM) 0 Miscellaneous Phlebotomy Draw Site [facility] 04/23 04/23 1500 1113 Chemistry Sodium (137 - 145 mmol/L) 134 L Potassium (3.5 - 5.1 mmol/L) 4.0 Chloride (98 - 107 mmol/L) 100 Carbon Dioxide (22 - 30 mmol/L) 26 Anion Gap (5 - 16) 7 BUN (9 - 20 mg/dL) 22 H Creatinine (0.7 - 1.2 mg/dL) 1.1 Estimated GFR (>60 ml/min) > 60 Glucose (65 - 99 mg/dL) 102 H Lactic Acid (0.7 - 2.1 mmol/L) 0.9 Calcium (8.4 - 10.2 mg/dL) 7.2 L Phosphorus (2.5 - 4.5 mg/dL) 3.6 Magnesium (1.6 - 2.3 mg/dL) 2.1 Total Bilirubin (0.2 - 1.3 mg/dL) 3.4 H AST (17 - 59 U/L) 85 H ALT (21 - 72 U/L) 44 Albumin (3.5 - 5.0 g/dL) 2.4 L Coagulation PT (9.4 - 12.5 SEC) 16.6 H INR (0.90 - 1.17) 1.59 H APTT (25 - 37 SEC) 35 Hematology CBC w Diff NO MAN DIFF REQ WBC (4.8 - 10.8 /CUMM) 7.7 RBC (4.70 - 6.10 /CUMM) 2.86 L Hgb (14.0 - 18.0 G/DL) 9.1 L Hct (42 - 52 %) 28.2 L MCV (80.0 - 94.0 FL) 98.7 H MCH (27.0 - 31.0 PG) 31.9 H RDW (11.5 - 14.5 %) 16.4 H Plt Count (130 - 400 /CUMM) 146 MPV (7.4 - 10.4 FL) 8.0 Gran % (42.2 - 75.2 %) 82.6 H Lymphocytes % (20.5 - 51.1 %) 7.1 L Monocytes % (1.7 - 9.3 %) 10.1 H Eosinophils % (0 - 5 %) 0.2 Basophils % (0.0 - 2.0 %) 0 L PUBS MCHC (33.0 - 37.0 G/DL) 32.3 L Immunology Absolute Granulocytes (1.4 - 6.5 /CUMM) 6.4 Absolute Lymphocytes (1.2 - 3.4 /CUMM) 0.5 L Absolute Monocytes (0.10 - 0.60 /CUMM) 0.8 H Absolute Eosinophils (0.0 - 0.7 /CUMM) 0 Absolute Basophils (0.0 - 0.2 /CUMM) 0 04/23 04/23 04/22 0400 0025 1830 Blood Gas pH (7.35 - 7.45 PH) 7.42 7.44 pCO2 (35 - 45 TORR) 41 35 pO2 (80 - 100 TORR) 100 125 H HCO3 (21 - 28 MEQ/L) 26 24 ABG O2 Sat (Measured) (>96.0 %) 97.0 98.0 P-50 (Temp Corrected) Y Y Carboxyhemoglobin (1.5 - 5.0 %) 0.3 L 0.1 L O2 Concentration % 55% 65 Temperature (97.0 - 100.0 FARH) 98.3 96.7 L Respiration Rate (BPM) 18 22 O2 Delivery Method ESPRIT ESPRIT Vent Mode AC AC Expiratory Pressure (CMH2O/P) 5 5 Tidal Volume (CC) 550 550 Chemistry Sodium (137 - 145 mmol/L) 135 L Potassium (3.5 - 5.1 mmol/L) 4.4 Chloride (98 - 107 mmol/L) 101 Carbon Dioxide (22 - 30 mmol/L) 26 Anion Gap (5 - 16) 8 BUN (9 - 20 mg/dL) 22 H Creatinine (0.7 - 1.2 mg/dL) 1.2 Estimated GFR (>60 ml/min) > 60 Glucose (65 - 99 mg/dL) 87 Calcium (8.4 - 10.2 mg/dL) 7.4 L Phosphorus (2.5 - 4.5 mg/dL) 4.1 Magnesium (1.6 - 2.3 mg/dL) 1.7 Total Bilirubin (0.2 - 1.3 mg/dL) 3.5 H AST (17 - 59 U/L) 73 H ALT (21 - 72 U/L) 45 Albumin (3.5 - 5.0 g/dL) 2.6 L Triglycerides (<150 mg/dL) 104 Cholesterol (< 200 MG/DL) 91 LDL Cholesterol, Calc (65 - 129 mg/dL) 49 L HDL Cholesterol (40 - 60 mg/dL) 22 L Cholesterol/HDL Ratio (0.00 - 4.88 %) 4.1 Hematology CBC w Diff NO MAN DIFF REQ WBC (4.8 - 10.8 /CUMM) 7.8 RBC (4.70 - 6.10 /CUMM) 2.70 L Hgb (14.0 - 18.0 G/DL) 8.7 L Hct (42 - 52 %) 27.0 L MCV (80.0 - 94.0 FL) 99.9 H MCH (27.0 - 31.0 PG) 32.3 H RDW (11.5 - 14.5 %) 16.0 H Plt Count (130 - 400 /CUMM) 138 MPV (7.4 - 10.4 FL) 8.2 Gran % (42.2 - 75.2 %) 80.6 H Lymphocytes % (20.5 - 51.1 %) 6.9 L Monocytes % (1.7 - 9.3 %) 12.2 H Eosinophils % (0 - 5 %) 0.1 Basophils % (0.0 - 2.0 %) 0.2 PUBS MCHC (33.0 - 37.0 G/DL) 32.3 L Immunology Absolute Granulocytes (1.4 - 6.5 /CUMM) 6.3 Absolute Lymphocytes (1.2 - 3.4 /CUMM) 0.5 L Absolute Monocytes (0.10 - 0.60 /CUMM) 1.0 H Absolute Eosinophils (0.0 - 0.7 /CUMM) 0 Absolute Basophils (0.0 - 0.2 /CUMM) 0 Miscellaneous Phlebotomy Draw Site [facility] 04/22 04/22 1554 1303 Blood Gas pH (7.35 - 7.45 PH) 7.46 H pCO2 (35 - 45 TORR) 27 L pO2 (80 - 100 TORR) 160 H HCO3 (21 - 28 MEQ/L) 19 L ABG O2 Sat (Measured) (>96.0 %) 98.0 Carboxyhemoglobin (1.5 - 5.0 %) 0.6 L O2 Concentration % 80% Respiration Rate (BPM) 28 O2 Delivery Method VENT Vent Mode AC Expiratory Pressure (CMH2O/P) 5 Tidal Volume (CC) 550 Chemistry Sodium (137 - 145 mmol/L) 133 L Potassium (3.5 - 5.1 mmol/L) 4.8 Chloride (98 - 107 mmol/L) 97 L Carbon Dioxide (22 - 30 mmol/L) 25 Anion Gap (5 - 16) 11 BUN (9 - 20 mg/dL) 19 Creatinine (0.7 - 1.2 mg/dL) 1.3 H Estimated GFR (>60 ml/min) 59 L Glucose (65 - 99 mg/dL) 139 H Calcium (8.4 - 10.2 mg/dL) 7.7 L Phosphorus (2.5 - 4.5 mg/dL) 4.1 Magnesium (1.6 - 2.3 mg/dL) 1.6 Total Bilirubin (0.2 - 1.3 mg/dL) 4.0 H AST (17 - 59 U/L) 85 H ALT (21 - 72 U/L) 45 Albumin (3.5 - 5.0 g/dL) 2.8 L Hematology CBC w Diff NO MAN DIFF REQ WBC (4.8 - 10.8 /CUMM) 6.9 RBC (4.70 - 6.10 /CUMM) 2.77 L Hgb (14.0 - 18.0 G/DL) 9.0 L Hct (42 - 52 %) 27.2 L MCV (80.0 - 94.0 FL) 98.0 H MCH (27.0 - 31.0 PG) 32.5 H RDW (11.5 - 14.5 %) 15.7 H Plt Count (130 - 400 /CUMM) 137 MPV (7.4 - 10.4 FL) 7.4 Gran % (42.2 - 75.2 %) 86.6 H Lymphocytes % (20.5 - 51.1 %) 5.4 L Monocytes % (1.7 - 9.3 %) 7.9 Eosinophils % (0 - 5 %) 0 Basophils % (0.0 - 2.0 %) 0.1 PUBS MCHC (33.0 - 37.0 G/DL) 33.2 Immunology Absolute Granulocytes (1.4 - 6.5 /CUMM) 6.0 Absolute Lymphocytes (1.2 - 3.4 /CUMM) 0.4 L Absolute Monocytes (0.10 - 0.60 /CUMM) 0.5 Absolute Eosinophils (0.0 - 0.7 /CUMM) 0 Absolute Basophils (0.0 - 0.2 /CUMM) 0 Miscellaneous Phlebotomy Draw Site [facility] 04/22 04/22 04/22 04/22 1200 1138 1000 0965 Blood Gas pH (7.35 - 7.45 PH) 7.28 *L pCO2 (35 - 45 TORR) 49 H pO2 (80 - 100 TORR) 91 HCO3 (21 - 28 MEQ/L) 22 ABG O2 Sat (Measured) (>96.0 %) 94.0 L Carboxyhemoglobin (1.5 - 5.0 %) 1.2 L O2 Concentration % 3L O2 Delivery Method NC Chemistry Sodium (137 - 145 mmol/L) Cancelled 135 L Potassium (3.5 - 5.1 mmol/L) Cancelled 5.9 H Chloride (98 - 107 mmol/L) Cancelled 96 L Carbon Dioxide (22 - 30 mmol/L) Cancelled 26 Anion Gap (5 - 16) Cancelled 14 BUN (9 - 20 mg/dL) Cancelled 18 Creatinine (0.7 - 1.2 mg/dL) Cancelled 1.7 H Estimated GFR (>60 ml/min) 43 L Glucose (65 - 99 mg/dL) Cancelled 114 H Calcium (8.4 - 10.2 mg/dL) Cancelled 8.2 L Phosphorus (2.5 - 4.5 mg/dL) Cancelled 5.5 H Magnesium (1.6 - 2.3 mg/dL) Cancelled 1.4 L Total Bilirubin (0.2 - 1.3 mg/dL) Cancelled 4.8 H AST (17 - 59 U/L) Cancelled 94 H ALT (21 - 72 U/L) Cancelled 39 Albumin (3.5 - 5.0 g/dL) Cancelled 3.2 L Hematology CBC w Diff Cancelled Cancelled WBC Cancelled Cancelled RBC Cancelled Cancelled Hgb Cancelled Cancelled Hct Cancelled Cancelled MCV Cancelled Cancelled MCH Cancelled Cancelled RDW Cancelled Cancelled Plt Count Cancelled Cancelled MPV Cancelled Cancelled PUBS MCHC Cancelled Cancelled Miscellaneous Phlebotomy Draw Site LEFT [facility]IAL 04/22 04/22 0952 0736 Chemistry Sodium (137 - 145 mmol/L) 135 L Potassium (3.5 - 5.1 mmol/L) 5.8 H Chloride (98 - 107 mmol/L) 94 L Carbon Dioxide (22 - 30 mmol/L) 26 Anion Gap (5 - 16) 14 BUN (9 - 20 mg/dL) 19 Creatinine (0.7 - 1.2 mg/dL) 1.7 H Estimated GFR (>60 ml/min) 43 L BUN/Creatinine Ratio (7 - 25 %) 11.2 Lactic Acid (0.7 - 2.1 mmol/L) 4.1 H 5.3 H Total Bilirubin (0.2 - 1.3 mg/dL) 4.7 H Direct Bilirubin (< 0.4 mg/dL) 3.0 H AST (17 - 59 U/L) 95 H ALT (21 - 72 U/L) 48 Alkaline Phosphatase (< 127 U/L) 152 H Total Protein (6.3 - 8.2 g/dL) 6.5 Albumin (3.5 - 5.0 g/dL) 3.2 L Coagulation PT (9.4 - 12.5 SEC) 17.6 H INR (0.90 - 1.17) 1.67 H Hematology CBC w Diff MAN DIFF ORDERED WBC (4.8 - 10.8 /CUMM) 11.6 H RBC (4.70 - 6.10 /CUMM) 3.51 L Hgb (14.0 - 18.0 G/DL) 11.4 L Hct (42 - 52 %) 34.9 L MCV (80.0 - 94.0 FL) 99.5 H MCH (27.0 - 31.0 PG) 32.4 H RDW (11.5 - 14.5 %) 15.6 H Plt Count (130 - 400 /CUMM) 243 MPV (7.4 - 10.4 FL) 7.9 Gran % (42.2 - 75.2 %) 88.4 H Lymphocytes % (20.5 - 51.1 %) 2.4 L Monocytes % (1.7 - 9.3 %) 9.2 Eosinophils % (0 - 5 %) 0 Basophils % (0.0 - 2.0 %) 0 L Segmented Neutrophils (42.2 - 75.2 %) 77 H Band Neutrophils (0.0 - 5.0 %) 13 H Lymphocytes (20.5 - 51.1 %) 2 L Monocytes (1.7 - 9.3 %) 8 Platelet Estimate (ADEQUATE) ADEQUATE Normocytic RBCs VERIFIED Normochromic RBCs VERIFIED PUBS MCHC (33.0 - 37.0 G/DL) 32.6 L Immunology Absolute Granulocytes (1.4 - 6.5 /CUMM) 10.3 H Absolute Lymphocytes (1.2 - 3.4 /CUMM) 0.3 L Absolute Monocytes (0.10 - 0.60 /CUMM) 1.1 H Absolute Eosinophils (0.0 - 0.7 /CUMM) 0 Absolute Basophils (0.0 - 0.2 /CUMM) 0 Serology Hepatitis A IgM Ab (NONREACTIVE) NONREACTIVE Hep Bs Antigen (NONREACTIVE) NONREACTIVE Hep B Core IgM Ab Conf (NONREACTIVE) NONREACTIVE Hepatitis C Antibody (NONREACTIVE) NONREACTIVE HIV 1&2 Ab Western Blot (NONREACTIVE) NONREACTIVE Toxicology Acetaminophen (10.0 - 30.0 ug/mL) < 10.0 L 04/22 04/22 04/22 0605 0235 0235 Chemistry Sodium (137 - 145 mmol/L) 133 L Potassium (3.5 - 5.1 mmol/L) 5.4 H Chloride (98 - 107 mmol/L) 93 L Carbon Dioxide (22 - 30 mmol/L) 25 Anion Gap (5 - 16) 15 BUN (9 - 20 mg/dL) 18 Creatinine (0.7 - 1.2 mg/dL) 0.9 Estimated GFR (>60 ml/min) > 60 BUN/Creatinine Ratio (7 - 25 %) 20.0 Glucose (65 - 99 mg/dL) 148 H Lactic Acid (0.7 - 2.1 mmol/L) 3.3 H Calcium (8.4 - 10.2 mg/dL) 8.7 Magnesium (1.6 - 2.3 mg/dL) 1.3 L Total Bilirubin (0.2 - 1.3 mg/dL) 4.2 H Direct Bilirubin (< 0.4 mg/dL) 2.5 H AST (17 - 59 U/L) 112 H ALT (21 - 72 U/L) 55 Alkaline Phosphatase (< 127 U/L) 200 H Ammonia (9 - 30 umol/L) 24 Troponin I (<0.11 ng/ml) 0.05 Total Protein (6.3 - 8.2 g/dL) 6.7 Albumin (3.5 - 5.0 g/dL) 3.2 L Amylase (30 - 110 U/L) 94 Lipase (23 - 300 U/L) 405 H Vitamin B12 (239 - 931 pg/mL) 560 Folate (2.76 - 20.0 ng/mL) 4.0 TSH (0.270 - 4.200 uIU/mL) 8.960 H Free T4 (0.64 - 1.79 ng/dL) 1.85 H Coagulation PT (9.4 - 12.5 SEC) 17.3 H INR (0.90 - 1.17) 1.66 H APTT (25 - 37 SEC) 34 Toxicology Urine Opiates Screen (>2000 NG/ML) 174.00 Methadone Screen (>300 NG/ML) < 40 Barbiturate Screen (>200 NG/ML) < 60 Ur Phencyclidine Scrn (>25 NG/ML) < 6.00 Amphetamines Screen (>1000 NG/ML) < 100 U Benzodiazepines Scrn (>200 NG/ML) < 85 Urine Cocaine Screen (>300 NG/ML) < 50 Urine Cannabis Screen (>50 NG/ML) 5.90 Serum Alcohol (<10 MG/DL) 86.0 Urines Urinalysis LIGHT H Urine Color (YEL,AMB,STR) ORANG H Urine Clarity (CLEAR) HAZY H Urine pH (5.0 - 8.0) 5.5 Ur Specific [place] (1.001 - 1.035) >= 1.030 Urine Protein (NEG,<30 MG/DL) 100 H Urine Ketones (NEG) 15 H Urine Nitrite (NEG) POS H Urine Bilirubin (NEG) POS@ICTO H Urine Urobilinogen (0.1 - 1.0 EU/dl) 2.0 H Ur Leukocyte Esterase (NEG) NEG Ur Microscopic SEDIMENT EXAMINED Urine RBC (0 - 5 /HPF) 3-5 Urine WBC (0 - 2 /HPF) 3-5 H Ur Epithelial Cells (NONE,FEW) MOD H Urine Crystals 1+ UR AC H Granular Casts (NONE /LPF) 1-3 H Urine Mucus (FEW,NONE) MANY H Urine Hemoglobin (NEG) NEG Urine Glucose (N MG/DL) NEG 04/22 04/22 04/22 0200 0200 0130 Chemistry Troponin I Cancelled Hematology CBC w Diff NO MAN DIFF REQ WBC (4.8 - 10.8 /CUMM) 7.7 RBC (4.70 - 6.10 /CUMM) 3.91 L Hgb (14.0 - 18.0 G/DL) 12.7 L Hct (42 - 52 %) 38.0 L MCV (80.0 - 94.0 FL) 97.2 H MCH (27.0 - 31.0 PG) 32.5 H RDW (11.5 - 14.5 %) 15.9 H Plt Count (130 - 400 /CUMM) 229 MPV (7.4 - 10.4 FL) 8.8 Gran % (42.2 - 75.2 %) 82.7 H Lymphocytes % (20.5 - 51.1 %) 7.7 L Monocytes % (1.7 - 9.3 %) 9.4 H Eosinophils % (0 - 5 %) 0 Basophils % (0.0 - 2.0 %) 0.2 % Normal PMNs (%) 96 PUBS MCHC (33.0 - 37.0 G/DL) 33.4 Immunology Absolute Granulocytes (1.4 - 6.5 /CUMM) 6.4 Absolute Lymphocytes (1.2 - 3.4 /CUMM) 0.6 L Absolute Monocytes (0.10 - 0.60 /CUMM) 0.7 H Absolute Eosinophils (0.0 - 0.7 /CUMM) 0 Absolute Basophils (0.0 - 0.2 /CUMM) 0 Other Body Source Fluid WBC (0 - 5 /CUMM) 9504 H Fld Mesothelial Cells (%) 4 Fld Total RBCs Counted (0 /CUMM) 2156 H Fluid Total Protein (g/dL) < 2.0 Fluid Albumin (g/dL) < 1.0
--- NOTE | 2016-04-24 17:22 | NUR ---
PT TEMP 101.1 TA. RESIDENT SAMUEL AND JADE CEBALLOS NOTOFIED. PT GIVEN IV TYLENOL X 1 AND BC X 2 SETS WERE OBTAINED, ONE FROM R HAND, THE OTHER FROM L ARM. PTS U.O HAS DECREASED TO <15ML PER HR. 500ML NS IVF BOLUS GIVEN.
[2016-04-25] VITALS (9 sets, daily range): BP systolic 100–129; BP diastolic 39–60
[2016-04-25 05:01] LABS: ABSOLUTE BASOPHIL COUNT 0 /CUMM (0.0-0.2); ABSOLUTE EOSINOPHIL COUNT 0.1 /CUMM (0.0-0.7); ABSOLUTE GRANULOCYTE CT 5.5 /CUMM (1.4-6.5); ABSOLUTE LYMPH COUNT 0.7 /CUMM (1.2-3.4); BASOPHIL % 0.3 % (0.0-2.0); EOSINOPHIL % 1.5 % (0-5); GRANULOCYTE % 75.5 % (42.2-75.2); HEMATOCRIT 27.9 % (42-52); MEAN CORPUSCULAR HGB 32.2 PG (27.0-31.0); MEAN CORPUSCULAR HGB CONC 32.4 G/DL (33.0-37.0); MEAN CORPUSCULAR VOLUME 99.2 FL (80.0-94.0); MEAN PLATELET VOLUME 8.1 FL (7.4-10.4); PLATELET COUNT 127 /CUMM (130-400); RBC DISTRIBUTION WIDTH 16.3 % (11.5-14.5); RED BLOOD CELL CT 2.82 /CUMM (4.70-6.10); WHITE BLOOD CELL COUNT 7.2 /CUMM (4.8-10.8)
--- NOTE | 2016-04-25 05:50 | PN- General Surgery ---
Subjective Subjective: The patient was seen this morning postoperatively day #3. He remains intubated and sedated. Per nursing there no significant issues overnight and they were able to finally wean him off pressors this morning. The JPs continue to put a significant amount of ascitic fluid and he has yet to have return of bowel function. Objective Vital Signs and I&Os Vital Signs Date Time Temp Pulse Resp B/P Pulse O2 O2 Flow FiO2 Ox Delivery Rate 04/25 0400 97.1 79 18 106/50 04/25 0400 95 Ventilator 40% 04/25 0334 40 / 0200 97.5 76 18 102/39 / 0008 40 04/25 0000 98.0 77 18 100/60 / 0000 95 Ventilator 40% 04/25 0000 98.0 77 18 100/60 95 Ventilator 40% 04/24 2219 40 04/24 2200 97.7 86 18 104/44 04/24 2000 98.9 87 18 108/60 04/24 2000 96 Ventilator 40% 04/24 1900 40 04/24 1820 98.9 04/24 1800 98.9 81 18 100/60 04/24 1720 101.1 / 1610 40 / 1600 101.1 90 20 116/60 12/ 1600 94 Ventilator 40% / 1600 101.1 90 20 116/60 94 Ventilator 40% / 1435 40 / 1200 98.8 90 18 108/64 / 1200 94 Ventilator 40% 04/24 1146 40 / 0919 94 112/53 / 0820 45 04/24 0800 98.9 96 18 120/70 04/24 0800 94 Ventilator 45% 04/24 0800 98.9 96 18 120/70 95 Ventilator 45% 04/24 0600 98 18 101/58 / 0554 50 Intake & Output 04/25 0804/25 0000 04/24 1600 04/24 0800 04/24 0000 04/23 1600 Intake Total 1609.1 1865.0 1487.0 1969.0 2297 Output Total 990 1380 1920 1945 Balance 619.1 1865.0 107.0 49.0 352 Intake, Blood 400 Product Intake, IV 1609.1 1059 1024 1759 1897 Intake, Lipid 189.0 80.0 36.0 Intake, Oral 0 0 0 Intake, 617 383 174 TPN/PPN Number 0 0 0 0 Bowel Movements Output, 790 1110 1620 1610 Drainage Output, 100 100 100 60 Gastric Drainage Output, Urine 100 170 200 275 Patient 300 lb Weight Physical Exam: Gen.: Intubated and sedated Skin: Warm and dry Abdomen: Softly distended, obese, generalized tenderness, port sites are clean, dry, and intact without signs of infection surgical clips are in place. JPs 3 holding suction with ascitic fluid in the bulb's Extremities: Bilateral lower extremities are warm and soft with significant pitting edema Assessment/Plan Assessment/Plan Assessment: 50-year-old male status post laparoscopic repair of perforated ulcer postoperative day #3. The patient is making slow improvement from a surgical standpoint. Commendations: Continue nothing by mouth and NG tube decompression IV Protonix twice a day Continue TPN and advance to goal per nutrition recommendations Keep CONNIE drains to self suction Strict I's and O's Follow-up morning laboratory studies Continue IV antibiotics per ID recommendations GI and DVT prophylaxis Follow-up care per primary team and consultation recommendations
--- NOTE | 2016-04-25 07:51 | PN- Resident CRCU ---
Subjective HPI/CRCU Issues: patient is a 50 y/o Male, with a significant past medical history of hypertension, hyperlipidemia, GERD, diverticulosis, degenerative joint disease, a vascular necrosis status post hip replacement, fatty liver disease, alcohol abuse presented with chronic alcohol abuse, nausea, vomting, abd distension and pain which got worse so he presented to ED on 04/21/2016. On Evaluation CT scan showed pneumoperitoneum, moderate ascites.On examination the abdomen was distended and tender to palpation , so diagnostic paracentesis was done which showed WBC 9504, RBC 2156. Because of the perforation, It seems that patient developed the secondary bacterial peritonitis. We took surgical consultation. The next couple of hours patient went into septicemia and shock. So he was given IV fluids and prophylactic antibiotics including ceftriaxone metronidazole and vancomycin. We catheterized the patient. Despite of these measures his blood pressure going down , so we took surgical consultation and plan for emergent surgery. Meantime, we intubated the patient and put him on mechanical ventilation(assist control mode, TV-500, respiratory rate 28, PEEP 5, FiO2 100%), triple-lumen catheter was placed in the right side of jugular vein. Patients blood pressure was continuosly going down, so we started him on Levothroid/vasopressin. We also started him on fentanyl and propofol drip. The culture of the ascites fluid came back positive for gram-negative. We took the consult from infectious disease specialist/Abdullahi Osuna MD. He advised to change ceftriaxone to ceftazidime and advised to wait for sensitivities report. Patient went to surgery on 04/22/2016. In postop, His blood pressure was 119/62. He is improving after surgery. We are decreasing the amount of pressers required to keep his blood pressure normal. CRCU Issues - Perforated duodenal ulcer s/p exploratory laparoscopy with grahm plication of duodenal ulcer Secondary bacterial Peritonitis Septic shock with MODS/ MATT improving/ Lactic acidosis improving/ Alcoholic hepatitis with transaminitis Ascitis Sigmoid Diverticulitis Hypertension Hyperlipidemia Morbidly Obese 24 Hour Events: Overnight, patient has decreasing urine output. So we gave IV fluid bolus. We're doing Strick intake output charting. Today we advised for the PICC line Objective Vital Signs & I&O Last 8 Hrs of Vitals and I&O: Max Min BP 110/60 100/54 HR 80 98 Temp 101 99 RR 18 18 Exam General Appearance: well developed/nourished, no apparent distress, awake, comfortable, obese Head: atraumatic, normal appearance Ears, Nose, Throat: tonsillar swelling, cannot be assessed because patient is intubated. Respiratory: chest non-tender, no respiratory distress, quiet respiration, bilateral crepts and sometimes some rhonchi Cardiovascular: regular rate/rhythm, edema Gastrointestinal: soft, distention, tenderness, there are 3 CONNIE drains Extremities: bilateral piting edema Current Medications: Current Medications Sig/Roberto Start time Last Medication Dose Route Stop Time Status Admin Albumin Human 25 GM Q8 04/26 1400 DC 04/29 IV 0645 Albuterol Sulfate 3 ML Q4P PRN 04/22 1145 AC 04/22 INH 1134 Fat Emulsion 350 ML Q24H 04/29 190 Intravenous IV 04/30 185 Fat Emulsion 350 ML Q24H 04/28 190 04/28 Intravenous IV 04/29 185 2017 Fat Emulsion 350 ML Q24H 04/27 1900 DC 04/27 Intravenous IV 04/28 185 1938 Fentanyl Citrate 1,000 MCG Q14H 04/24 1700 DC 04/27 Dextrose/Water 250 ML IV 1958 Heparin Sodium 5,000 UNIT Q8 04/24 1400 AC 04/29 (Porcine) SC 1433 Hydromorphone HCl 2 MG Q6P PRN 04/22 0930 IV Lorazepam 0 Q1P PRN 04/22 0700 DC 04/23 IV 0547 Meropenem 1 GM IQ8 04/23 1600 AC 04/29 IV 0806 Multivitamins 1 JORDAN ONCE ONE 04/29 09 04/29 Folic Acid 1 MG IV 04/29 1703 1105 Sodium Chloride 1,000 ML Norepinephrine 4 MG Q24H 04/27 1045 DC 04/27 Sodium Chloride 250 ML IV 1107 Ondansetron HCl 4 MG Q8P PRN 04/22 0600 IV Pantoprazole Sodium 40 MG BID 04/22 2200 AC 04/29 IV 1103 Sodium Chloride 1,000 ML Q8H 04/29 1701 IV Sodium Chloride 1,000 ML Q8H 04/23 0115 DC 04/29 IV 0647 Thiamine HCl 500 MG Q8H 04/29 0900 AC 04/29 Sodium Chloride 250 ML IV 05/02 0159 1104 Thiamine HCl 500 MG Q8 04/29 0832 DC IV 12/08 2201 Total Parenteral 1 UNIT Q24H 04/29 1900 AC Nutrition IV 04/29 1901 Total Parenteral 1 UNIT Q24H 04/28 1900 AC 04/28 Nutrition IV 04/29 Total Parenteral 1 UNIT Q24H 04/27 1900 DC 04/27 Nutrition IV 04/28 Impression/Plan Impression/Problem List Impression: Impression and Plan - Patient is arousable, responding to command, c/o pain. He is on fentanyl drip, and levofed. POD-4 Ventilator -D4 Left Radial artery line, CONNIE drains-3 - D4 Foleys cathter -D4, urine is having blood/ hematuria Respiratory He is on ventilator, Ventilator Settings is -AC, TV-550, IPAP -24, RR-18, PEEP-5 , Fio2 45. wheezing in both lungs ABG showed -PH-7.41,PCo2-40,PO2-92, CXR showed - 1. 1. Endotracheal tube in satisfactory position at 3.8 cm above the ching. 2. Lungs are hypoinflated and there is discoid atelectasis in the right middle lobe. Infectious Ascitic fluids is growing -enterobacter cloacae and alpha strept. We will follow ID rcms We will stop ceftazidime and Vancomycin, and start him on Meopenem 1g iv 8hrly. Hematology - Hb-9.2, Megaloblastic anemia due to alcohol, added up with septicemia and shock We will suplement MultiVit, Thiamine, folic acid. Cardiology Patient is responding to vasopressor, we will taper according to protocol. His HR-94 BP -112/53 , EKG is NSR Gastroenterology There are 3 CONNIE drains -260 Abdoman is soft, still no bowel sounds on examiantion We will do strict Intake output Charting We will follow GI rcms Patient is undergoing alcohol withdrawl, we will give Ativan according to CIWA protocol. We will give Vit K for total 3 days. Urology BUN -24 Cr-1.1 Urine output in last 24 hrs is 690cc We will continue IV fluids -75ml/hrs Strict I/O charting Endocrine TSH -8.9, T4 -1.85 It seems patient is having Sick Euthyroid syndrome. We discussed with endocrinology. We will repeat TFT after patient get recovered. Skin There are multiple dressings on the skin including right internal jugular, abdomen for drain, Diet -we started patient on TPN as advised by dietitian. DVT prophylaxis -ALPS/ Heparin CODE STATUS-full code Problem List: 1. Perforation bowel 2. Peritonitis 3. EtOH dependence 4. Alcoholic hepatitis 5. Sepsis Pain Ratin (cannt be accesed) Pain Location: Abdoman, Pain Plan: Patient on fentanyl and Ativan drip Tomorrow's Labs & Rationales: CBC,ICU bundle, ABG, chest x-ray Plan DVT/Prophylaxis: mechanical
[2016-04-25 08:40] LABS: PT 16.5 SEC (9.4-12.5)
--- NOTE | 2016-04-25 10:20 | PN- CRCU ---
Subjective HPI/Critical Care Issues: Patient seen and examined this morning. He remains on mechanical ventilation. His urine output is about 30 mL/h. He had a fever of 101 last night. He has been off his pressors since this morning she is awake and alert he is on fentanyl and Ativan however. He is denying any pain in the Siddiqui to be comfortable at this time. Objective Current Medications: Current Medications Sig/Roberto Start time Last Medication Dose Route Stop Time Status Admin Acetaminophen 1,000 MG ONCE ONE 04/24 1645 DC 04/24 N/A 1 UNIT IV 04/24 1659 1720 Albumin Human 25 GM Q8 04/22 0700 04/25 IV 0634 Albuterol Sulfate 3 ML Q4P PRN 04/22 1145 AC 04/22 INH 1134 Fat Emulsion 300 ML 1900 04/24 1900 AC 04/24 Intravenous IV 04/25 1859 1959 Fat Emulsion 250 ML 1900 04/23 1900 DC 04/23 Intravenous IV 04/24 1859 1857 Fentanyl Citrate 1,000 MCG Q14H 04/24 1700 AC 04/24 Dextrose/Water 250 ML IV 2104 Fentanyl Citrate 1,000 MCG Q24H 04/24 1315 DC 04/24 Dextrose/Water 250 ML IV 04/24 1659 1604 Fentanyl Citrate 1,000 MCG Q24H 04/22 1030 DC 04/24 Dextrose/Water 250 ML IV 0716 Heparin Sodium 5,000 UNIT Q8 04/24 1400 AC 04/24 (Porcine) SC 2201 Hydromorphone HCl 2 MG Q6P PRN 04/22 0930 AC IV Lorazepam 50 MG Q24H 04/23 1315 AC 04/24 Sodium Chloride 500 ML IV 0830 Lorazepam 0 Q1P PRN 04/22 0700 04/23 IV 0547 Meropenem 1 GM IQ8 04/23 1600 AC 04/25 IV 0826 Norepinephrine 4 MG Q24H 04/22 1000 AC 04/24 Sodium Chloride 250 ML IV 0919 Ondansetron HCl 4 MG Q8P PRN 04/22 0600 IV Pantoprazole Sodium 40 MG BID 04/22 2200 AC 04/25 IV 0828 Phytonadione 10 MG ONCE ONE 04/24 1130 DC 04/24 SC 04/24 1131 1212 Sodium Chloride 500 ML BOLUS ONE 04/24 1715 DC 04/24 IV 04/24 1814 1720 Sodium Chloride 1,000 ML Q8H 04/23 0115 AC 04/25 IV 0828 Total Parenteral 1 UNIT ONE 04/24 1900 AC 04/24 Nutrition IV 04/25 Total Parenteral 1 UNIT ONE 04/23 1900 DC 04/23 Nutrition IV 04/24 Vital Signs & I&O Last 24 Hrs of Vitals and I&O: Vital Signs Date Time Temp Pulse Resp B/P Pulse O2 O2 Flow FiO2 Ox Delivery Rate 04/25 0859 40 04/25 08 99.0 82 18 104/52 04/25 0800 95 Ventilator 40% 04/25 0600 97.0 90 18 105/46 04/25 0558 40 04/25 0400 97.1 79 18 106/50 04/25 0400 95 Ventilator 40% 04/25 0334 40 04/25 0200 97.5 76 18 102/39 04/25 0008 40 / 0000 98.0 77 18 100/60 / 0000 95 Ventilator 40% 04/25 0000 98.0 77 18 100/60 95 Ventilator 40% 04/24 2219 40 04/24 2200 97.7 86 18 104/44 04/24 2000 98.9 87 18 108/60 04/24 2000 96 Ventilator 40% 04/24 1900 40 04/24 1820 98.9 04/24 1800 98.9 81 18 100/60 04/24 1720 101.1 04/24 1610 40 04/24 1600 101.1 90 20 116/60 / 1600 94 Ventilator 40% 04/24 1600 101.1 90 20 116/60 94 Ventilator 40% 04/24 1435 40 04/24 1200 98.8 90 18 108/64 04/24 1200 94 Ventilator 40% 04/24 1146 40 Intake & Output 04/25 1600 04/25 0800 12 0000 Intake Total 1609.2 1609.1 Output Total 1210 990 Balance 399.2 619.1 Intake, IV 1609.2 1609.1 Intake, Oral 0 0 Number 0 0 Bowel Movements Output, 960 790 Drainage Output, 100 100 Gastric Drainage Output, Urine 150 100 Exam Other Physical Findings: gen arousable heent ett, right IJ TLC cvs s1 s2 lungs transmitted abd obese, micheline drains, distended, bs+ ext edematous Results Last 24 Hrs of Lab Results: Laboratory Tests 04/25/16 0701: PT 16.5 H, INR 1.58 H 04/25/16 0500: pH 7.43, pCO2 35, pO2 84, HCO3 23, ABG O2 Sat (Measured) 96.0, P-50 (Temp Corrected) Y, Carboxyhemoglobin 0.3 L, O2 Concentration % 40%, Temperature 97.1 , Respiration Rate 18, O2 Delivery Method ESPRIT, Vent Mode AC, Expiratory Pressure 5, Tidal Volume 550, Phlebotomy Draw Site [place] 04/25/16 0418: Anion Gap 7, Estimated GFR 59 L, Glucose 113 H, Calcium 7.9 L, Phosphorus 2.9 , Magnesium 2.1, Total Bilirubin 3.1 H, AST 107 H, ALT 41, Albumin 2.6 L, CBC w Diff NO MAN DIFF REQ, RBC 2.82 L, MCV 99.2 H, MCH 32.2 H, RDW 16.3 H, MPV 8.1, Gran % 75.5 H, Lymphocytes % 9.2 L, Monocytes % 13.5 H, Eosinophils % 1.5, Basophils % 0.3, PUBS MCHC 32.4 L, Absolute Granulocytes 5.5, Absolute Lymphocytes 0.7 L, Absolute Monocytes 1.0 H, Absolute Eosinophils 0.1, Absolute Basophils 0 Impression/Plan Impression/Plan Impression/Plan: Impression 50 year old man * perforated viscus s/p repair * acute hypoxemic respiratory failure secondary to acute illness * off vasopressors, resolved septic shock secondary to ascitic - Enterobacter/ alpha strep * coagulopathy - likely secondary to infection Plan Respiratory * continue mechanical ventilation * goal fio2 40% to maintain spo2 >92% * abg 7.43/35/84 ID * septic shock secondary to ascitic Enterobacter/alpha strep * ID consultation appreciated * Meropenem 1gm IV q8h CVS * septic shock resolved - off vasopressors at this time * hemodynamic monitoring Heme * coagulopathy INR 1.58, likely secondary to sepsis, s/p vitamin K * monitor cbc, coags, no active bleeding Metabolic * ins/outs * creatinine, electrolytes monitoring * aaron in place * monitor LFTs Alimentary * TPN, OGT, f/u surgical recommendations Neuro * sedation as needed to maintain comfort, ativan/fentanyl/dilaudid DVT prophylaxis at all times GI prophylaxis - Protonix 40mg IV BID TTS 40min Discussed with mother at bedside
--- NOTE | 2016-04-25 10:50 | PN- Infect Dx ---
Subjective Subjective: MAXIMUM TEMPERATURE 101.1. His blood pressure has improved, now off pressors. He offers no complaints at this time. Objective Last 24 Hrs of Vital Signs/I&O Vital Signs Date Time Temp Pulse Resp B/P Pulse O2 O2 Flow FiO2 Ox Delivery Rate 04/25 0859 40 04/25 0800 99.0 82 18 104/52 04/25 0800 95 Ventilator 40% 04/25 0600 97.0 90 18 105/46 04/25 0558 40 04/25 0400 97.1 79 18 106/50 04/25 0400 95 Ventilator 40% 04/25 0334 40 04/25 0200 97.5 76 18 102/39 / 0008 40 / 0000 98.0 77 18 100/60 / 0000 95 Ventilator 40% 04/25 0000 98.0 77 18 100/60 95 Ventilator 40% 04/24 2219 40 04/24 2200 97.7 86 18 104/44 04/24 2000 98.9 87 18 108/60 04/24 2000 96 Ventilator 40% 04/24 1900 40 04/24 1820 98.9 04/24 1800 98.9 81 18 100/60 04/24 1720 101.1 / 1610 40 04/24 1600 101.1 90 20 116/60 12/ 1600 94 Ventilator 40% 04/24 1600 101.1 90 20 116/60 94 Ventilator 40% 04/24 1435 40 12 1200 98.8 90 18 108/64 / 1200 94 Ventilator 40% 04/24 1146 40 Intake & Output 04/25 1600 04/25 0800 04/25 0000 Intake Total 1609.2 1609.1 Output Total 1210 990 Balance 399.2 619.1 Intake, IV 1609.2 1609.1 Intake, Oral 0 0 Number 0 0 Bowel Movements Output, 960 790 Drainage Output, 100 100 Gastric Drainage Output, Urine 150 100 Physical Exam Other Physical Findings: He is comfortable on the ventilator in no acute distress Neck right IJ triple-lumen catheter with no inflammation at the site Lungs scattered rhonchi bilaterally Heart regular rhythm with no murmur Abdomen is distended, no bowel sounds appreciated; CONNIE drains remain in place, with leakage from the right sided drain Extremities trace edema both lower extremities; left upper extremity edema Ann catheter remains in place Results Last 24 Hours of Lab Results: Laboratory Tests 12/02 12/02 12/02 0701 0500 6948 Blood Gas pH (7.35 - 7.45 PH) 7.43 pCO2 (35 - 45 TORR) 35 pO2 (80 - 100 TORR) 84 HCO3 (21 - 28 MEQ/L) 23 ABG O2 Sat (Measured) (>96.0 %) 96.0 P-50 (Temp Corrected) Y Carboxyhemoglobin (1.5 - 5.0 %) 0.3 L O2 Concentration % 40% Temperature (97.0 - 100.0 FARH) 97.1 Respiration Rate (BPM) 18 O2 Delivery Method ESPRIT Vent Mode AC Expiratory Pressure (CMH2O/P) 5 Tidal Volume (CC) 550 Chemistry Sodium (137 - 145 mmol/L) 135 L Potassium (3.5 - 5.1 mmol/L) 3.9 Chloride (98 - 107 mmol/L) 102 Carbon Dioxide (22 - 30 mmol/L) 26 Anion Gap (5 - 16) 7 BUN (9 - 20 mg/dL) 31 H Creatinine (0.7 - 1.2 mg/dL) 1.3 H Estimated GFR (>60 ml/min) 59 L Glucose (65 - 99 mg/dL) 113 H Calcium (8.4 - 10.2 mg/dL) 7.9 L Phosphorus (2.5 - 4.5 mg/dL) 2.9 Magnesium (1.6 - 2.3 mg/dL) 2.1 Total Bilirubin (0.2 - 1.3 mg/dL) 3.1 H AST (17 - 59 U/L) 107 H ALT (21 - 72 U/L) 41 Albumin (3.5 - 5.0 g/dL) 2.6 L Coagulation PT (9.4 - 12.5 SEC) 16.5 H INR (0.90 - 1.17) 1.58 H Hematology CBC w Diff NO MAN DIFF REQ WBC (4.8 - 10.8 /CUMM) 7.2 RBC (4.70 - 6.10 /CUMM) 2.82 L Hgb (14.0 - 18.0 G/DL) 9.1 L Hct (42 - 52 %) 27.9 L MCV (80.0 - 94.0 FL) 99.2 H MCH (27.0 - 31.0 PG) 32.2 H RDW (11.5 - 14.5 %) 16.3 H Plt Count (130 - 400 /CUMM) 127 L MPV (7.4 - 10.4 FL) 8.1 Gran % (42.2 - 75.2 %) 75.5 H Lymphocytes % (20.5 - 51.1 %) 9.2 L Monocytes % (1.7 - 9.3 %) 13.5 H Eosinophils % (0 - 5 %) 1.5 Basophils % (0.0 - 2.0 %) 0.3 PUBS MCHC (33.0 - 37.0 G/DL) 32.4 L Immunology Absolute Granulocytes (1.4 - 6.5 /CUMM) 5.5 Absolute Lymphocytes (1.2 - 3.4 /CUMM) 0.7 L Absolute Monocytes (0.10 - 0.60 /CUMM) 1.0 H Absolute Eosinophils (0.0 - 0.7 /CUMM) 0.1 Absolute Basophils (0.0 - 0.2 /CUMM) 0 Miscellaneous Phlebotomy Draw Site [place] Last 24 Hours of Garcia Results: Urine culture April 22 approximately 40,000 colonies of alpha strep Blood cultures April 24 negative OR culture April 22 remains negative Assessment/Plan Impression: Fever spike yesterday of unclear etiology now 3 days status post laparoscopic Clint plication of a perforated duodenal ulcer with several possible sources including the right IJ triple-lumen catheter, the lungs, though his respiratory status is improving, the urinary tract, with a Ann catheter in place, and the abdomen, with the possibility of a residual infection to be considered. His white blood cell count remains normal on Meropenem for Enterobacter and alpha strep isolated from the initial paracentesis in the ER, with the OR culture remaining negative. The isolation of alpha strep from the urine likely represents contaminant or seeding from the sepsis and will be covered by the Meropenem. The isolation of mold from the sputum culture is of unclear significance and likely represents colonization or contamination. His left upper extremity edema is of unclear significance, with DVT possible though unlikely. Suggestion: 1. Would pursue placement of a PICC so that the right IJ can be removed 2. Consider Doppler of the left upper extremity 3. Repeat urine culture 4. Continue Meropenem
--- NOTE | 2016-04-25 11:09 | RADIOLOGY REPORT ---
EXAMINATION: XR PORTABLE CHEST CLINICAL INFORMATION: Shock, on ventilator. COMPARISON: Chest done on 04/24/2016. TECHNIQUE: Portable view of the chest was obtained. FINDINGS: Low lung volume is present bilaterally. Ill-defined patchy airspace disease is noted at right mid to lower lung field. Previously identified presumed loculated right-sided pleural effusion versus band of atelectasis appears improved. The left lung field remains clear. The cardiomediastinal silhouette is mildly enlarged. The tip of the endotracheal tube is located approximately 3.2 cm above the level of the ching. The tip of the enteric tube is infradiaphragmatic. There is a right-sided internal jugular catheter identified, and appears in good position. IMPRESSION: Ill-defined patchy airspace disease at right mid to lower lung field. Previously identified loculated effusion versus bandlike atelectasis at right mid lung field appears improved. No other significant change.
--- NOTE | 2016-04-25 12:00 | NUR ---
WEANING TRIALS X 2 ATTEMPTS; FAILED. PT BECAME APNEC AND RESTLESS.
--- NOTE | 2016-04-25 16:59 | RADIOLOGY REPORT ---
EXAMINATION: XR PORTABLE CHEST CLINICAL INFORMATION: PICC line placed COMPARISON: 04/25/2016 at 6:00 AM TECHNIQUE: This is a limited portable radiograph of the chest at 4:44 PM. Patient positioning is nonstandard with emphasis on the right arm. FINDINGS: There is a right PICC line. The tip is seen in the region of the tricuspid valve. There appears to be a right central venous catheter with its tip at the cavoatrial junction. There is a small right effusion. Persistent prominence of the heart and mediastinum. IMPRESSION: 1. Right PICC tip projects at the tricuspid valve. 2. A small right effusion.
--- NOTE | 2016-04-25 17:00 | NUR ---
PT PLACED ON TOTAL EVOLUTION SPECIALTY BED WITH AUTO TURN/REPOSITION SCHEDULE.
--- NOTE | 2016-04-25 17:35 | RADIOLOGY REPORT ---
EXAMINATION: XR PORTABLE CHEST CLINICAL INFORMATION: PICC line placement. COMPARISON: Multiple prior studies. Most recent chest x-ray 04/25/2016, 4:44 PM TECHNIQUE: Portable view of the chest was obtained. 5:24 PM FINDINGS: Since the prior chest x-ray the PICC line catheter has been pulled back. The catheter tip is now at the cavoatrial junction. The right IJ catheter tip also at caval atrial junction. There is continued density at the right lung base due to a right pleural effusion and possible underlying basilar consolidation /atelectasis. Left lung is clear. No significant central pulmonary vascular congestion. IMPRESSION: 1. PICC line catheter is been pulled back and catheter tip is now at the cavoatrial junction good position.
--- NOTE | 2016-04-25 18:54 | NUR ---
NIHARIKA PICC LINE PLACED. CXR CONFIRMED PLACEMENT. ALL IV LINES REPLACED AND CONNECTED TO PICC WITH EXCEPTION OF TPN AND LIPIDS, AWAITING NEW BAGS. AGUS TLC TO BE DC BY RESIDENT AT THAT TIME.
--- NOTE | 2016-04-25 21:00 | NUR ---
MD BAKER MADE AWARE, ALL MEDICATIONS SWITCHED TO PICC LINE, AND RIJ TLC MAY NOW BE REMOVED.
--- NOTE | 2016-04-25 21:59 | ULTRASOUND REPORT ---
EXAMINATION: DUPLEX DOPPLER UPPER EXTREMITY, left CLINICAL INFORMATION: Edema and swelling COMPARISON: None. TECHNIQUE: Duplex Doppler performed of left upper extremity deep veins with grayscale, color Doppler and spectral Doppler examination. FINDINGS: There is no evidence of deep vein thrombosis. Normal vascular flow is seen in the internal jugular vein, subclavian vein, axillary vein, brachial vein, basilic vein, cephalic vein and antecubital vein. IMPRESSION: No evidence of deep vein thrombosis.
[2016-04-26] VITALS (8 sets, daily range): BP systolic 86–112; BP diastolic 35–60
[2016-04-26 05:22] LABS: ABSOLUTE BASOPHIL COUNT 0 /CUMM (0.0-0.2); ABSOLUTE EOSINOPHIL COUNT 0.1 /CUMM (0.0-0.7); ABSOLUTE GRANULOCYTE CT 5.5 /CUMM (1.4-6.5); ABSOLUTE LYMPH COUNT 0.6 /CUMM (1.2-3.4); ABSOLUTE MONOCYTE COUNT 1.3 /CUMM (0.10-0.60); BASOPHIL % 0.5 % (0.0-2.0); EOSINOPHIL % 1.5 % (0-5); GRANULOCYTE % 72.8 % (42.2-75.2); HEMATOCRIT 27.6 % (42-52); MEAN CORPUSCULAR HGB 31.6 PG (27.0-31.0); MEAN CORPUSCULAR HGB CONC 31.9 G/DL (33.0-37.0); MEAN CORPUSCULAR VOLUME 99.1 FL (80.0-94.0); MEAN PLATELET VOLUME 8.5 FL (7.4-10.4); PLATELET COUNT 118 /CUMM (130-400); RBC DISTRIBUTION WIDTH 16.2 % (11.5-14.5); RED BLOOD CELL CT 2.78 /CUMM (4.70-6.10); WHITE BLOOD CELL COUNT 7.6 /CUMM (4.8-10.8)
--- NOTE | 2016-04-26 06:03 | PN- General Surgery ---
LARISA JUNG 04/26/16 0552: Subjective Subjective: POD # 4 status post Clint patch of perforated duodenal ulcer with liver biopsy. Patient remains intubated, but off pressors. MAXIMUM TEMPERATURE was 100.5 for the past 24 hours. No bowel function as of yet. Overall, he typically denies significant pain. PICC line was placed yesterday for access for TPN. Weaning trials were attempted yesterday, but patient became apneic and agitated. He did have some bloody ngt output during the day yesterday. NGT was placed to intermittent suction and the bleeding has since resolved. Objective Vital Signs and I&Os Vital Signs Date Time Temp Pulse Resp B/P Pulse O2 O2 Flow FiO2 Ox Delivery Rate / 0548 40 04/26 0324 40 04/26 0200 99.8 72 18 111/52 / 0045 40 / 0000 100.5 84 18 112/49 12/ 0000 100.5 84 18 100/60 94 Ventilator 40% / 0000 94 Ventilator 40% 04/25 2227 40 04/25 2200 98.9 80 20 129/49 12/ 2000 98.9 84 18 112/39 12/ 2000 96 Ventilator 40% 04/25 1954 40 12/ 1640 40 12/ 1600 98.8 92 23 100/60 12/02 1600 98.8 98 23 100/46 92 Ventilator 40% / 1600 92 Ventilator 40% / 1400 40 12/ 1200 99.9 92 18 110/60 12/02 1200 91 Ventilator 40% / 1134 74 93/41 12/ 1121 40 / 0859 40 04/25 0800 99.0 82 18 104/52 12/ 0800 95 Ventilator 40% / 0600 97.0 90 18 105/46 / 0558 40 Intake & Output / 0800 12/ 0000 / 1600 12/ 0800 / 0000 04/24 1600 Intake Total 1748 1625.0 1609.2 1609.1 1865.0 Output Total 1350 1330 1210 990 Balance 398 295.0 399.2 619.1 1865.0 Intake, IV 4749 941 5955.2 1609.1 1059 Intake, Lipid 100.0 189.0 Intake, Oral 0 0 0 Intake, 566 617 TPN/PPN Intake, Tube 20 Irrigant Number 0 0 0 Bowel Movements Output, 1100 1050 960 790 Drainage Output, 100 100 100 100 Gastric Drainage Output, Urine 150 180 150 100 Physical Exam: Gen.: Patient remains intubated and lightly sedated. He opens his eyes to command. Cardiac: Regular Pulmonary: Lungs are clear to auscultation bilaterally. Abdomen: Obese, round, somewhat distended. There is some mild erythema over the anterior abdomen, but not associated with incision sites. The CONNIE drains contain a large amount of ascitic fluid. When Dr. Murillo was in yesterday afternoon, it was thought that one of the drains contained a small amount of bile, but that is not appreciated on my exam today. No bowel sounds are appreciated as of yet. Extremities: Mild edema 4. Alps are in place. Results Recent Imaging Studies: Multiple chest x-rays were done yesterday due to the need for repositioning of the PICC line. It was eventually confirmed to be in adequate position. Left upper extremity venous Doppler was negative for DVT yesterday as well. Assessment/Plan Assessment/Plan Patient is a 50-year-old male, morbidly obese with a history of heavy alcohol use, who is now postoperative day #4 status post lap as A Clint patch of duodenal ulcer and liver biopsy. 12 L of ascitic fluid were drained intraoperatively and continue to drain from the JPs. Plan: -Continue nothing by mouth with NG tube until patient is extubated. -Continue TPN for nutritional support. -Continue weaning trials. -Pain control and fentanyl drip for sedation. -Continue meropenem for peritonitis. Appreciate ID input. -GI prophylaxis with IV Protonix twice a day. -Continue to monitor CONNIE output for signs of bile leak, which was suspected yesterday, but not evident on exam today. -Creatinine is elevated this morning. We'll discuss with critical care team. -Monitor H&H closely as it is trending downward. MAGY DUNNE DO 04/26/16 1318: Attending MD Review Statement Attending Statement Attending MD Statement: examined this patient, discuss w/resident/PA/CARD FIXER, agreed w/resident/PA/CARD FIXER Attending Assessment/Plan: Off pressors. UO low/BUN and Cr inceasing. WBC ok. JPs with serous drainage, no evidence of bile today. NGT minimal. Continue present care as per ICU. Patient is draining a lot from JPs but it appears to be ascites. Worsening renal function, renal consult. No enteral feeds until thursday at the earliest.
--- NOTE | 2016-04-26 07:27 | RADIOLOGY REPORT ---
EXAMINATION: XR PORTABLE CHEST CLINICAL INFORMATION: On ventilator. COMPARISON: Several portable radiographs from 04/25/2016. TECHNIQUE: Upright portable AP view of the chest is performed at 0652 hours. FINDINGS: There are low lung volumes with inspiration to the posterior seventh ribs. Radiograph is underpenetrated. Endotracheal tube is approximately 4.5 cm above ching. There is right internal jugular central line with tip at proximal right atrium. Right PICC line is again noted with tip at superior vena cava right atrial confluence. Nasogastric tube is present. The distal end is imperceptible against the background attenuation of the lower mediastinum and abdomen. Tip not clearly visualized. Again, there is cardiomegaly. The vascularity is within normal. The left lung is grossly clear. There is vague opacity right base and blunting right lateral costophrenic angle suggesting airspace opacity and small effusion. No significant change from prior study considering differences in film technique. IMPRESSION: 1. Endotracheal tube 4.5 cm above ching. 2. Low lung volumes. Underpenetrated portable study. Right base effusion and probable airspace opacity similar to 04/25/2016.
--- NOTE | 2016-04-26 08:00 | NUR ---
REC'D THE PT ORALLY INTUBATED AND MECHANICALLY VENTILATED PER MD ORDER. PT IS SEDATED WITH FENTANYL 75MCG/HR OR 18.8ML/HR WELL ATIVAN 4MG/HR OR 40ML/HR BOTH INFUSING VIA THE WHITE PORT OF THE NIHARIKA PICC WELL NS AT 75ML/HR. PT'S SAS IS A 4 AND HIS CIWA IS A 1 R/T SL DIAPHORESIS. FOLLOWS COMMANDS WHEN IS AWOKEN BUT DRIFTS OFF EASILY AGAIN. PT IS IN A NSR W/O ECTOPY PER THE [employer] OBSERVER. THE CVP IS 10 VIA THE NIHARIKA PICC. THE RIJ TLC STILL NEEDS TO BE REMOVED. MD'S MADE AWARE. MOIZ BS ARE RHONCHOROUS, SUCTIONED FOR YELLOW FROTHY SPUTUM. BITE BLOCK NEEDED TO BE PLACED THE PT WAS BITING ON THE ETT. ABD IS DISTENDED WITH ABSENT BOWEL SOUNDS. NGT TO R NARE RETURNED TO SUCTION AT THIS TIME, TO BE REMOVED FROM SUCTION AT 1000-ALT ON/OFF Q2H. DRAINING BILIOUS MATERIAL. PT HAS 3 CONNIE'S-L AND R SIDES OF THE ABD WELL MIDLINE OF ABD. ALL 3 DRESSINGS WERE SATURATED WITH SEROUS FLUID. ALL DRESSINGS CHANGED AND 2 HEAVY DRAINAGE SPONGES WERE PLACED OVER THE ENTIRE ABD FOLLOWED BY A TOWEL. L SIDE CONNIE EMPTIED OF 150ML AND MIDLINE ABD CONNIE DRAINED OF 200ML. STERLING IN PLACE DRAINING 20ML/HR O F DK PATRICK URINE. PT REMAINS ON TPN AND LIPIDS ORDERED.
--- NOTE | 2016-04-26 08:33 | PN- Resident CRCU ---
Subjective HPI/CRCU Issues: patient is a 50 y/o Male, with a significant past medical history of hypertension, hyperlipidemia, GERD, diverticulosis, degenerative joint disease, a vascular necrosis status post hip replacement, fatty liver disease, alcohol abuse presented with nausea, vomting, abd distension and pain and was diagnosed with bowel perforation, liver failure, sepsis. He underwent laparoscopic grahm plication of duodenal ulcer and core liver biopsy. He subseuqently developed secondary bacterial peritonitis and went to septicemia and shock. He has been treated with IV fluids and broad spectrum antibiotics. Patient has a PICC line in place (inserted yesterday), IJ line removed today. He is intubated and on mechanical ventilation. Also receiving TPN. Due to low BP is on pressors. The culture of the ascites fluid came back positive for gram-negative. Per ID changed ceftriaxone to ceftazidime and advised to wait for sensitivities report. 24 Hour Events: No overnight events. patient had tachycardia around 1 am (up to 171), and an episode of 5 beats of Vtach at 16:35 pm. fever of 100.5 at midnight. Yesterdat attempts to wean off the patient from ventilator were not successful. Objective Vital Signs & I&O Last 8 Hrs of Vitals and I&O: Max Min BP 94/41 105/46 HR 76 84 Temp 97.1 98 RR 18 18 Exam General Appearance: well developed/nourished, sedated, intubated, obese Head: atraumatic, normal appearance Neck: normal inspection, supple Respiratory: chest non-tender, no respiratory distress, quiet respiration Cardiovascular: regular rate/rhythm, edema Gastrointestinal: soft, non-tender, distention Extremities: pedal edema Weaning Parameters NIF: 17 Minute Volume: 5.09 Resp rate: 19 Vt: 150 Heart Rate: 84 Weaning Schedule Start Time: 1017 Minute Volume: 5.06 Resp Rate: 35 Vt: 473 Heart Rate: 84 End Time: 1020 Minute Volume: 0 Resp Rate: 0 Vt: 0 Heart Rate: 0 Current Medications: Current Medications Sig/Roberto Start time Last Medication Dose Route Stop Time Status Admin Albumin Human 25 GM Q8 04/22 0700 AC 04/26 IV 0556 Albuterol Sulfate 3 ML Q4P PRN 04/22 1145 AC 04/22 INH 1134 Fat Emulsion 350 ML Q24H 04/26 1900 AC Intravenous IV 04/27 1859 Fat Emulsion 350 ML Q24H 04/25 1900 AC / Intravenous IV 04/26 185 1930 Fat Emulsion 300 ML 1900 04/24 1900 DC 04/24 Intravenous IV 04/25 Fentanyl Citrate 1,000 MCG Q14H 04/24 1700 AC 04/26 Dextrose/Water 250 ML IV 0156 Heparin Sodium 5,000 UNIT Q8 04/24 1400 AC 04/26 (Porcine) SC 1434 Hydromorphone HCl 2 MG Q6P PRN 04/22 0930 AC IV Lorazepam 50 MG Q24H 04/23 1315 AC 04/26 Sodium Chloride 500 ML IV 0648 Lorazepam 0 Q1P PRN 04/22 0700 AC 04/23 IV 0547 Meropenem 1 GM IQ8 04/23 1600 AC 04/26 IV 0922 Norepinephrine 4 MG Q24H 04/22 1000 DC 04/24 Sodium Chloride 250 ML IV 0919 Ondansetron HCl 4 MG Q8P PRN 04/22 0600 AC IV Pantoprazole Sodium 40 MG BID 04/22 2200 AC 04/26 IV 0922 Sodium Chloride 1,000 ML Q20H 04/26 1215 CAN IV Sodium Chloride 1,000 ML Q8H 04/23 0115 AC 04/26 IV 0800 Total Parenteral 1 UNIT Q24H 04/26 1900 AC Nutrition IV 04/27 185 Total Parenteral 1 UNIT Q24H 04/25 1900 AC 04/25 Nutrition IV 04/26 185 1930 Total Parenteral 1 UNIT ONE 04/24 190 DC 04/24 Nutrition IV 04/25 Impression/Plan Impression/Problem List Impression: Patient is a 50-year-old male who presented with nausea vomiting abdominal pain and was diagnosed with bowel perforation and underwent surgical repair of perforated duodenal ulcer. He subsequently developed peritonitis, sepsis and shock. Currently intubated and sedated, on vasopressors and broad-spectrum antibiotics as well as IV fluids. POD-5 Ventilator -D5 Left Radial artery line, CONNIE drains-3 - D5 Foleys cathter -D5, urine is having blood/ hematuria PICC line palced on 04/27/16, day 2 TPN day 3, increased Na from 50 to 70 in the TPN Respiratory He is on ventilator, Ventilator Settings is -AC, TV-550, IPAP -24, RR-18, PEEP-5 , Fio2 45. wheezing in both lungs ABG showed -PH-7.41,PCo2-40,PO2-92, repeat CXR showed - 1. Endotracheal tube 4.5 cm above ching. 2. Low lung volumes. Underpenetrated portable study. Right base effusion and probable airspace opacity similar to 04/25/2016. Infectious Ascitic fluids is growing -enterobacter cloacae and alpha strept. 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 Cardiology Patient is responding to vasopressor, we will taper according to protocol. His HR-72-84 BP - 84/39-118/44 , EKG is NSR Gastroenterology There are 3 CONNIE drains -260 Abdoman is soft, still no bowel sounds on examiantion We will do strict Intake output Charting We will follow GI rcms Patient is undergoing alcohol withdrawl, we will give Ativan according to CIWA protocol. We will give Vit K for total 3 days. Urology BUN -42 Cr-1.8 Urine output in last 24 hrs is 3890cc Increased IV fluids from 75ml/hr to 150 ml/hr, repeat BEP in pm Strict I/O charting Repeat Cr tomorrow, also obtain US of kidneys and spot urine lytes and Cr I called and placed consult nephrology, Dr. Mckeon saw the patient, recommended vanc level, also Endocrine TSH -8.9, T4 -1.85 It seems patient is having Sick Euthyroid syndrome. We discussed with endocrinology. We will repeat TFT after patient get recovered. Skin There are multiple dressings on the skin including right internal jugular, abdomen for drain, Diet -we started patient on TPN as advised by dietitian. DVT prophylaxis -ALPS/ Heparin CODE STATUS-full code Problem List: 1. Alcoholic hepatitis 2. Ascites 3. Abdominal pain 4. Liver failure 5. Bowel perforation 6. Lactic acidosis 7. Peritonitis 8. At risk for ventilator-associated event 9. Sepsis Pain Ratin Tomorrow's Labs & Rationales: cbc (sepsis), icu bundle (MATT, electrolyte abnormality) Plan DVT/Prophylaxis: mechanical
--- NOTE | 2016-04-26 11:05 | PN- Pulmonary ---
Subjective HPI/Critical Care Issues: Patient remains sedated intubated and borderline blood pressures Objective Current Medications: Current Medications Sig/Roberto Start time Last Medication Dose Route Stop Time Status Admin Albumin Human 25 GM Q8 04/22 0700 04/26 IV 0556 Albuterol Sulfate 3 ML Q4P PRN 04/22 1145 AC 04/22 INH 1134 Fat Emulsion 350 ML Q24H 04/26 190 AC Intravenous IV 04/27 185 Fat Emulsion 350 ML Q24H 04/25 190 AC 04/25 Intravenous IV 04/26 185 1930 Fat Emulsion 300 ML 1900 04/24 190 DC 04/24 Intravenous IV 04/25 1859 195 Fentanyl Citrate 1,000 MCG Q14H 04/24 1700 04/26 Dextrose/Water 250 ML IV 0156 Heparin Sodium 5,000 UNIT Q8 04/24 1400 AC 04/26 (Porcine) SC 0557 Hydromorphone HCl 2 MG Q6P PRN 04/22 0930 IV Lorazepam 50 MG Q24H 04/23 1315 04/26 Sodium Chloride 500 ML IV 0648 Lorazepam 0 Q1P PRN 04/22 0700 AC 04/23 IV 0547 Meropenem 1 GM IQ8 04/23 1600 AC 04/26 IV 0922 Norepinephrine 4 MG Q24H 04/22 1000 AC 04/24 Sodium Chloride 250 ML IV 0919 Ondansetron HCl 4 MG Q8P PRN 04/22 0600 AC IV Pantoprazole Sodium 40 MG BID 04/22 2200 AC 04/26 IV 0922 Sodium Chloride 1,000 ML Q8H 04/23 0115 04/26 IV 0800 Total Parenteral 1 UNIT Q24H 04/26 190 AC Nutrition IV 04/27 185 Total Parenteral 1 UNIT Q24H 04/25 1900 AC 04/25 Nutrition IV 04/26 185 1930 Total Parenteral 1 UNIT ONE 04/24 190 DC 04/24 Nutrition IV 04/25 Vital Signs & I&O Last 24 Hrs of Vitals and I&O: Vital Signs Date Time Temp Pulse Resp B/P Pulse O2 O2 Flow FiO2 Ox Delivery Rate 04/26 0857 40 04/26 08 98.9 72 18 100/60 04/26 08 95 Ventilator 40% 04/26 08 98.9 72 18 100/60 95 Ventilator 40% 04/26 0600 99.3 76 20 98/49 12/ 0548 40 / 0400 99.3 74 18 102/58 / 0400 95 Ventilator 40% / 0324 40 04/26 0200 99.8 72 18 111/52 12/ 0045 40 12/ 0000 100.5 84 18 112/49 12/ 0000 100.5 84 18 100/60 94 Ventilator 40% / 0000 94 Ventilator 40% 04/25 2227 40 04/25 2200 98.9 80 20 129/49 / 2000 98.9 84 18 112/39 / 2000 96 Ventilator 40% 04/25 1954 40 04/25 1640 40 04/25 1600 98.8 92 23 100/60 04/25 1600 98.8 98 23 100/46 92 Ventilator 40% 04/25 1600 92 Ventilator 40% / 1400 40 04/25 1200 99.9 92 18 110/60 / 1200 91 Ventilator 40% 04/25 1134 74 93/41 04/25 1121 40 Intake & Output 04/26 1600 / 0800 04/26 0000 Intake Total 1931.0 1748 Output Total 1045 1350 Balance 886.0 398 Intake, IV 1116 1748 Intake, Lipid 112.0 Intake, Oral 0 0 Intake, 703 TPN/PPN Number 0 Bowel Movements Output, 875 1100 Drainage Output, 50 100 Gastric Drainage Output, Urine 120 150 FiO2 0.4 95% duration blood pressure 100/67 his chest shows diminished breath sounds cardiac exam shows regular S1 and S2 abdominal exam shows absent bowel sounds ventilator settings are assist control 18 tidal volume 550 FiO2 0.4 CVP is 10 Impression/Plan Impression/Plan Impression/Plan: 30-year-old gentleman status post perforated viscus and secondary sepsis with multiorgan system failure. He's developing worsening acute kidney injury with rising creatinine. Recommendations: Maintain CVP approximately 12. If He again becomes hypotensive would resume pressors. Obtain nephrology consult. Continue current antibiotic regimen. Continue current ventilator setting
--- NOTE | 2016-04-26 17:59 | Cons- Nephrology ---
General Information and HPI Consulting Request Date of Consult: 04/26/16 Requested By: LALA PETERSEN MD Reason for Consult: Acute kidney injury Source of Information: old records, current chart Exam Limitations: clinical condition, intubated and sedated History of Present Illness: This 50-year-old gentleman with a history of out call abuse, hypertension hyperlipidemia was admitted with abdominal pain and ultimately went to the operating room for a core biopsy of his liver and plication of a duodenal ulcer. He has a history as outlined above with regards to hypertension hyperlipidemia he also has a history of significant ethanol abuse and had signed out AGAINST MEDICAL ADVICE with what appeared to be unstable angina in May of this year. There is no mention or any history of renal disease. He is intubated and sedated with a Ann in place therefore it is not likely that obstruction is playing a role here. He was hypotensive requiring pressors and has been on vancomycin as well as. Otherwise, he has not received any IV contrast or nonsteroidal anti-inflammatory drugs. Allergies/Medications Allergies: Coded Allergies: NO KNOWN ALLERGIES (08/27/12) Home Med List: Atorvastatin Calcium 40 MG TABLET 1 TAB PO DAILY CHOLESTROL (Reported) Chondroitin Sulf/Glucosamine (Glucosamine & Chondroitin) 1 CAP CAP 1 CAP PO DAILY SUPPLEMENT (Reported) Fluoxetine HCl 40 MG CAPSULE 1 CAP PO QAM DEPRESSION (Reported) Folic Acid 1 MG TAB 1 MG PO DAILY SUPPLEMENT Lisinopril 20 MG TABLET 1 TAB PO DAILY BP (Reported) Meclizine HCl 25 MG TABLET 1 TAB PO TID DIZZINESS (Reported) Metoprolol Succinate (Toprol XL) [address] 1 TAB PO DAILY BP (Reported) Current Medications: Current Medications Sig/Roberto Start time Last Medication Dose Route Stop Time Status Admin Albumin Human 25 GM Q8 04/26 1400 AC 04/26 IV 1612 Albumin Human 25 GM Q8 04/22 0700 DC 04/26 IV 0556 Albuterol Sulfate 3 ML Q4P PRN 04/22 1145 AC 04/22 INH 1134 Fat Emulsion 350 ML Q24H 04/26 1900 AC Intravenous IV 04/27 1859 Fat Emulsion 350 ML Q24H 04/25 1900 AC 04/25 Intravenous IV 04/26 1859 1930 Fat Emulsion 300 ML 1900 04/24 1900 DC 04/24 Intravenous IV 04/25 1851958 Fentanyl Citrate 1,000 MCG Q14H 04/24 1700 AC 04/26 Dextrose/Water 250 ML IV 1629 Heparin Sodium 5,000 UNIT Q8 04/24 1400 AC 04/26 (Porcine) SC 1434 Hydromorphone HCl 2 MG Q6P PRN 04/22 0930 AC IV Lorazepam 100 MG Q24H 04/26 1930 AC Sodium Chloride 1,000 ML IV Lorazepam 50 MG Q24H 04/23 1315 DC 04/26 Sodium Chloride 500 ML IV 0648 Lorazepam 0 Q1P PRN 04/22 0700 AC 04/23 IV 0547 Meropenem 1 GM IQ8 04/23 1600 AC 04/26 IV 1610 Norepinephrine 4 MG Q24H 04/22 1000 DC 04/24 Sodium Chloride 250 ML IV 0919 Ondansetron HCl 4 MG Q8P PRN 04/22 0600 AC IV Pantoprazole Sodium 40 MG BID 04/22 2200 AC 04/26 IV 0922 Sodium Chloride 1,000 ML Q20H 04/26 1215 CAN IV Sodium Chloride 1,000 ML Q8H 04/23 0115 AC 04/26 IV 1744 Total Parenteral 1 UNIT Q24H 04/26 1900 AC Nutrition IV 04/27 1859 Total Parenteral 1 UNIT Q24H 04/25 1900 AC / Nutrition IV 04/26 185 1930 Total Parenteral 1 UNIT ONE 04/24 1900 DC 04/24 Nutrition IV 04/25 1851999 Review of Systems Review of Systems: Unable to obtain as he is intubated and sedated. Past History Travel History Traveled to [place] past 21 day No Medical History Blood Transfusion Hx: No Neurological: vertigo EENT: NONE Cardiovascular: hypertension, HYPERLIPIDEMIA Respiratory: NONE Gastrointestinal: GERD, DIVERTICULOSIS Hepatic: "FATTY LIVER" Renal: NONE Musculoskeletal: chronic back pain, degen joint disease Psychiatric: alcohol dependence, anxiety Endocrine: NONE Blood Disorders: NONE Cancer(s): NONE C[employer]ICE [employer]OCIATE/Reproductive: NONE Surgical History Surgical History: appendectomy, hip replacement (left), B/L shoulder surgeries LEFT WRIST SURGERY Family History Relations & Conditions If Any: FATHER, ; Cause: Lung malignancy. Psychosocial History Where Do You Live? Home Who Do You Live With? self Services at Home: None Smoking Status: Never Smoked ETOH Use: heavy use, alcoholic, daily >1 pint vodka Illicit Drug Use: denies illicit drug use Functional Ability ADLs Independent: dressing, eating, toileting, bathing. Ambulation: independent IADLs Independent: shopping, housework, finances, food prep, telephone, transportation , medication admin. Employment History Employment: Unemployed Exam & Diagnostic Data Vital Signs and I&O Vital Signs Date Time Temp Pulse Resp B/P Pulse O2 O2 Flow FiO2 Ox Delivery Rate 04/26 1615 40 04/26 1600 94 Ventilator 40% 04/26 1600 99.1 72 18 102/52 94 Ventilator 40% 04/26 1410 40 04/26 1200 94 Ventilator 40% 04/26 1111 40 04/26 1000 98.9 70 18 86/35 04/26 0857 40 04/26 0800 98.9 72 18 100/60 04/26 0800 95 Ventilator 40% 04/26 0800 98.9 72 18 100/60 95 Ventilator 40% 04/26 0600 99.3 76 20 98/49 / 0548 40 04/26 0400 99.3 74 18 102/58 04/26 0400 95 Ventilator 40% 04/26 0324 40 04/26 0200 99.8 72 18 111/52 / 0045 40 / 0000 100.5 84 18 112/49 12/ 0000 100.5 84 18 100/60 94 Ventilator 40% / 0000 94 Ventilator 40% 04/25 2227 40 04/25 2200 98.9 80 20 129/49 04/25 2000 98.9 84 18 112/39 04/25 2000 96 Ventilator 40% 04/25 1954 40 Intake & Output 04/26 1600 04/26 0400 04/25 1600 04/25 0400 04/24 1600 04/24 0400 Intake Total 3945.0 1748 3234.2 1609.1 3352.0 1969.0 Output Total 2312 1350 2540 990 1380 1920 Balance 1633.0 398 694.2 619.1 1972.0 49.0 Intake, IV 3130 1748 2548.2 1609.1 2083 1759 Intake, Lipid 112.0 100.0 269.0 36.0 Intake, Oral 0 0 0 0 0 Intake, 558 295 4192 174 TPN/PPN Intake, Tube 20 Irrigant Number 0 0 0 0 0 Bowel Movements Output, 1845 1100 2010 790 1110 1620 Drainage Output, 200 100 200 100 100 100 Gastric Drainage Output, Urine 267 150 330 100 170 200 Physical Exam General Appearance: well developed/nourished, sedated, intubated, obese, nasogastric tube in place Head: atraumatic Eyes: Bilateral: normal appearance. Ears, Nose, Throat: endotracheal tube in place Neck: bandage over right IJ, he has a Bull neck,making assessment of JVD difficult Respiratory: normal breath sounds Cardiovascular: regular rate/rhythm, edema Peripheral Pulses: 2+ tibialis posterior (R), 2+ tibialis posterior (L), 2+ dorsalis pedis (R), 2+ dorsalis pedis (L) Gastrointestinal: distention, wound bandaged, no bowel sounds Neurologic/Psych: intubated and sedated Results Pertinent Lab Results: Laboratory Tests 04/26 04/26 04/26 1800 1800 0420 Chemistry Sodium (137 - 145 mmol/L) Pending 134 L Potassium (3.5 - 5.1 mmol/L) Pending 4.1 Chloride (98 - 107 mmol/L) Pending 104 Carbon Dioxide (22 - 30 mmol/L) Pending 24 Anion Gap (5 - 16) Pending 7 BUN (9 - 20 mg/dL) Pending 42 H Creatinine (0.7 - 1.2 mg/dL) Pending 1.8 H Estimated GFR (>60 ml/min) 40 L BUN/Creatinine Ratio Pending Glucose (65 - 99 mg/dL) 122 H Calcium (8.4 - 10.2 mg/dL) 8.1 L Phosphorus (2.5 - 4.5 mg/dL) 3.2 Magnesium (1.6 - 2.3 mg/dL) 2.1 Total Bilirubin (0.2 - 1.3 mg/dL) 2.9 H AST (17 - 59 U/L) 86 H ALT (21 - 72 U/L) 44 Albumin (3.5 - 5.0 g/dL) 2.5 L Triglycerides (<150 mg/dL) 150 Hematology CBC w Diff NO MAN DIFF REQ WBC (4.8 - 10.8 /CUMM) 7.6 RBC (4.70 - 6.10 /CUMM) 2.78 L Hgb (14.0 - 18.0 G/DL) 8.8 L Hct (42 - 52 %) 27.6 L MCV (80.0 - 94.0 FL) 99.1 H MCH (27.0 - 31.0 PG) 31.6 H RDW (11.5 - 14.5 %) 16.2 H Plt Count (130 - 400 /CUMM) 118 L MPV (7.4 - 10.4 FL) 8.5 Gran % (42.2 - 75.2 %) 72.8 Lymphocytes % (20.5 - 51.1 %) 7.7 L Monocytes % (1.7 - 9.3 %) 17.5 H Eosinophils % (0 - 5 %) 1.5 Basophils % (0.0 - 2.0 %) 0.5 PUBS MCHC (33.0 - 37.0 G/DL) 31.9 L Immunology Absolute Granulocytes (1.4 - 6.5 /CUMM) 5.5 Absolute Lymphocytes (1.2 - 3.4 /CUMM) 0.6 L Absolute Monocytes (0.10 - 0.60 /CUMM) 1.3 H Absolute Eosinophils (0.0 - 0.7 /CUMM) 0.1 Absolute Basophils (0.0 - 0.2 /CUMM) 0 Urines Ur Creatinine 24 Hour Pending Pending Ur Sodium 24 Hour Pending Fraction Sodium Excret Pending Ur Potassium 24 Hour Pending 04/25 04/25 04/25 0701 0500 2248 Blood Gas pH (7.35 - 7.45 PH) 7.43 pCO2 (35 - 45 TORR) 35 pO2 (80 - 100 TORR) 84 HCO3 (21 - 28 MEQ/L) 23 ABG O2 Sat (Measured) (>96.0 %) 96.0 P-50 (Temp Corrected) Y Carboxyhemoglobin (1.5 - 5.0 %) 0.3 L O2 Concentration % 40% Temperature (97.0 - 100.0 FARH) 97.1 Respiration Rate (BPM) 18 O2 Delivery Method ESPRIT Vent Mode AC Expiratory Pressure (CMH2O/P) 5 Tidal Volume (CC) 550 Chemistry Sodium (137 - 145 mmol/L) 135 L Potassium (3.5 - 5.1 mmol/L) 3.9 Chloride (98 - 107 mmol/L) 102 Carbon Dioxide (22 - 30 mmol/L) 26 Anion Gap (5 - 16) 7 BUN (9 - 20 mg/dL) 31 H Creatinine (0.7 - 1.2 mg/dL) 1.3 H Estimated GFR (>60 ml/min) 59 L Glucose (65 - 99 mg/dL) 113 H Calcium (8.4 - 10.2 mg/dL) 7.9 L Phosphorus (2.5 - 4.5 mg/dL) 2.9 Magnesium (1.6 - 2.3 mg/dL) 2.1 Total Bilirubin (0.2 - 1.3 mg/dL) 3.1 H AST (17 - 59 U/L) 107 H ALT (21 - 72 U/L) 41 Albumin (3.5 - 5.0 g/dL) 2.6 L Coagulation PT (9.4 - 12.5 SEC) 16.5 H INR (0.90 - 1.17) 1.58 H Hematology CBC w Diff NO MAN DIFF REQ WBC (4.8 - 10.8 /CUMM) 7.2 RBC (4.70 - 6.10 /CUMM) 2.82 L Hgb (14.0 - 18.0 G/DL) 9.1 L Hct (42 - 52 %) 27.9 L MCV (80.0 - 94.0 FL) 99.2 H MCH (27.0 - 31.0 PG) 32.2 H RDW (11.5 - 14.5 %) 16.3 H Plt Count (130 - 400 /CUMM) 127 L MPV (7.4 - 10.4 FL) 8.1 Gran % (42.2 - 75.2 %) 75.5 H Lymphocytes % (20.5 - 51.1 %) 9.2 L Monocytes % (1.7 - 9.3 %) 13.5 H Eosinophils % (0 - 5 %) 1.5 Basophils % (0.0 - 2.0 %) 0.3 PUBS MCHC (33.0 - 37.0 G/DL) 32.4 L Immunology Absolute Granulocytes (1.4 - 6.5 /CUMM) 5.5 Absolute Lymphocytes (1.2 - 3.4 /CUMM) 0.7 L Absolute Monocytes (0.10 - 0.60 /CUMM) 1.0 H Absolute Eosinophils (0.0 - 0.7 /CUMM) 0.1 Absolute Basophils (0.0 - 0.2 /CUMM) 0 Miscellaneous Phlebotomy Draw Site [place] 04/24 04/24 0455 0417 Blood Gas pH (7.35 - 7.45 PH) 7.41 pCO2 (35 - 45 TORR) 40 pO2 (80 - 100 TORR) 92 HCO3 (21 - 28 MEQ/L) 25 ABG O2 Sat (Measured) (>96.0 %) 96.0 P-50 (Temp Corrected) Y Carboxyhemoglobin (1.5 - 5.0 %) 0.3 L O2 Concentration % 50% Temperature (97.0 - 100.0 FARH) 99.3 Respiration Rate (BPM) 18 O2 Delivery Method ESPRIT Vent Mode AC Expiratory Pressure (CMH2O/P) 5 Tidal Volume (CC) 550 Chemistry Sodium (137 - 145 mmol/L) 134 L Potassium (3.5 - 5.1 mmol/L) 3.9 Chloride (98 - 107 mmol/L) 101 Carbon Dioxide (22 - 30 mmol/L) 25 Anion Gap (5 - 16) 8 BUN (9 - 20 mg/dL) 24 H Creatinine (0.7 - 1.2 mg/dL) 1.1 Estimated GFR (>60 ml/min) > 60 Glucose (65 - 99 mg/dL) 119 H Calcium (8.4 - 10.2 mg/dL) 7.5 L Phosphorus (2.5 - 4.5 mg/dL) 3.1 Magnesium (1.6 - 2.3 mg/dL) 2.1 Total Bilirubin (0.2 - 1.3 mg/dL) 3.2 H AST (17 - 59 U/L) 107 H ALT (21 - 72 U/L) 42 Albumin (3.5 - 5.0 g/dL) 2.6 L Prealbumin (17.6 - 36.0 mg/dL) 4.8 L Hematology CBC w Diff NO MAN DIFF REQ WBC (4.8 - 10.8 /CUMM) 7.7 RBC (4.70 - 6.10 /CUMM) 2.83 L Hgb (14.0 - 18.0 G/DL) 9.2 L Hct (42 - 52 %) 28.0 L MCV (80.0 - 94.0 FL) 99.1 H MCH (27.0 - 31.0 PG) 32.4 H RDW (11.5 - 14.5 %) 16.4 H Plt Count (130 - 400 /CUMM) 147 MPV (7.4 - 10.4 FL) 7.7 Gran % (42.2 - 75.2 %) 79.4 H Lymphocytes % (20.5 - 51.1 %) 9.2 L Monocytes % (1.7 - 9.3 %) 10.5 H Eosinophils % (0 - 5 %) 0.5 Basophils % (0.0 - 2.0 %) 0.4 PUBS MCHC (33.0 - 37.0 G/DL) 32.7 L Immunology Absolute Granulocytes (1.4 - 6.5 /CUMM) 6.1 Absolute Lymphocytes (1.2 - 3.4 /CUMM) 0.7 L Absolute Monocytes (0.10 - 0.60 /CUMM) 0.8 H Absolute Eosinophils (0.0 - 0.7 /CUMM) 0 Absolute Basophils (0.0 - 0.2 /CUMM) 0 Miscellaneous Phlebotomy Draw Site [facility] Imaging/Other Studies: PATIENT: CECILIA BABCOCK PRESENT AGE: 50 PATIENT ACCOUNT NO: [id number] : 66 LOCATION: [facility] ORDERING PHYSICIAN: LIN JOHNSON MD SERVICE DATE: 04/26/16 EXAM TYPE: RAD - XRY-PORTABLE CHEST XRAY EXAMINATION: XR PORTABLE CHEST CLINICAL INFORMATION: On ventilator. COMPARISON: Several portable radiographs from 04/25/2016. TECHNIQUE: Upright portable AP view of the chest is performed at 0652 hours. FINDINGS: There are low lung volumes with inspiration to the posterior seventh ribs. Radiograph is underpenetrated. Endotracheal tube is approximately 4.5 cm above ching. There is right internal jugular central line with tip at proximal right atrium. Right PICC line is again noted with tip at superior vena cava right atrial confluence. Nasogastric tube is present. The distal end is imperceptible against the background attenuation of the lower mediastinum and abdomen. Tip not clearly visualized. Again, there is cardiomegaly. The vascularity is within normal. The left lung is grossly clear. There is vague opacity right base and blunting right lateral costophrenic angle suggesting airspace opacity and small effusion. No significant change from prior study considering differences in film technique. IMPRESSION: 1. Endotracheal tube 4.5 cm above ching. 2. Low lung volumes. Underpenetrated portable study. Right base effusion and probable airspace opacity similar to 04/25/2016. DICTATED BY: KVNG MERAZ MD DATE/TIME DICTATED:04/26/16718 ACCOUNTANCY PROFESSOR:STEF DATE/TIME TRANSCRIBED:04/26/16718 CONFIDENTIAL, DO NOT COPY WITHOUT APPROPRIATE AUTHORIZATION. <Electronically signed in Other Vendor System> SIGNED BY: KVNG MERAZ MD 0727 Assessment/Plan Assessment/Recommendations Assessment: 1. Acute kidney injury. Please note his serum creatinine was 1.7 earlier in his hospital stay. He arrived with a creatinine was completely normal however. Suspect that this may be due to a combination of factors. This includes ongoing issues with regards to fever and possible sepsis. It also may be related to the use of vancomycin although I doubt this. It may be the result of his hypotension earlier in the hospital course. 2. History of a perforated viscus 3. Hypertension, given his blood pressure running on the low side one would wonder whether or not he is relatively low to normal pressures may likewise cause acute kidney injury. 4. History of chest pain with acute coronary syndrome for which she signed out AGAINST MEDICAL ADVICE. 5. History of having opiates and cannabis in his urine in May 6 status post perforated viscus Recommendations: 1. Avoid nonsteroidal anti-inflammatory drugs or IV contrast. Continue to support. 2. Please send the spot or random urine for sodium and creatinine 3. Continue with the judicious use of fluids 4. Certainly there is no urgent dialytic need.
--- NOTE | 2016-04-26 21:49 | NUR ---
FROM 1999-PT SEDATED ON ATIVAN GTT AT 4MG/HR, FENTANYL GTT AT 75MCG/HR. SEE FLOW SHEET FOR SAS SCORES. SOFT BILATERAL WRIST RESTRAINTS ON. ORALLY INTUBATED AND VENTED. BREATH SOUNDS CLEAR, DIMINISHED AT BASES BILATERALLY. SUCTIONING FOR MOD AMT OF THICK CREAM COLORED SECREATIONS. SEE FLOW SHEET FOR VS, 02 SATS, I/O'S. MONITOR SHOWS NSR WITH OCC PVC'S. DISCONTINUED DOUGLAS ORDERED-PRESSURE HELD X 5MIN, PRESSURE DRESSING APPLIED. BP STABLE AT PRESENT. MONITORING CVP-SEE FLOW SHEET. ABD SOFT, DISTENDED, ABSENT BOWEL SOUNDS. [address]-ALL DRAINING SEROUS DRAINAGE-TO BULB SUCTION. SEROUS DRAINAGE AROUND ALL CONNIE SITES. STERLING IN PLACE-BORDERLINE OUTPUT OF DARK PATRICK URINE. SKIN INTACT. 2+ GENERALIZED EDEMA.
--- NOTE | 2016-04-27 01:33 | NUR ---
0000 [id number] TO DR. BOYER-DECREASED NS TO 100ML/HR ORDERED-WILL MONITOR
[2016-04-27 05:34] LABS: ABSOLUTE BASOPHIL COUNT 0 /CUMM (0.0-0.2); ABSOLUTE EOSINOPHIL COUNT 0.1 /CUMM (0.0-0.7); ABSOLUTE GRANULOCYTE CT 6.3 /CUMM (1.4-6.5); ABSOLUTE LYMPH COUNT 0.6 /CUMM (1.2-3.4); ABSOLUTE MONOCYTE COUNT 1.6 /CUMM (0.10-0.60); BASOPHIL % 0.3 % (0.0-2.0); EOSINOPHIL % 1.5 % (0-5); GRANULOCYTE % 72.8 % (42.2-75.2); HEMATOCRIT 28.8 % (42-52); MEAN CORPUSCULAR HGB 32.2 PG (27.0-31.0); MEAN CORPUSCULAR HGB CONC 32.5 G/DL (33.0-37.0); MEAN CORPUSCULAR VOLUME 99.1 FL (80.0-94.0); MEAN PLATELET VOLUME 8.8 FL (7.4-10.4); PLATELET COUNT 132 /CUMM (130-400); WHITE BLOOD CELL COUNT 8.7 /CUMM (4.8-10.8)
--- NOTE | 2016-04-27 06:01 | PN- General Surgery ---
Subjective Subjective: POD # 5 s/p Clint patch of perforated duodenal ulcer with liver biopsy. Remains intubated and sedated on fentanyl gtt. Off pressors. No bowel function as of yet. Weaning trials continue, but he became apneic yesterday both times. Objective Vital Signs and I&Os Vital Signs Date Time Temp Pulse Resp B/P Pulse O2 O2 Flow FiO2 Ox Delivery Rate / 0549 40 12/ 0400 93 Ventilator 40% / 0318 40 12/ 0002 40 12/ 0000 94 Ventilator 40% 12/ 2300 97.3 78 18 102/58 94 Ventilator 40% 04/26 2217 40 12/ 2000 94 Ventilator 40% 04/26 1940 40 12 1615 40 12/ 1600 94 Ventilator 40% 04/26 1600 99.1 72 18 102/52 94 Ventilator 40% / 1410 40 12/ 1200 94 Ventilator 40% 04/26 1111 40 12/ 1000 98.9 70 18 86/35 04/26 0857 40 04/26 0800 98.9 72 18 100/60 / 0800 95 Ventilator 40% 04/26 0800 98.9 72 18 100/60 95 Ventilator 40% Intake & Output 12/ 0800 12/ 0000 12/ 1600 / 0800 04/26 0000 04/25 1600 Intake Total 2725.0 2014 1931.0 1748 1625.0 Output Total 1145 1267 1045 1350 1330 Balance 1580.0 747 886.0 398 295.0 Intake, IV 1877 2013 1116 1748 939 Intake, Lipid 116.0 112.0 100.0 Intake, Oral 0 0 Intake, 732 703 566 TPN/PPN Intake, Tube 20 Irrigant Number 0 0 0 Bowel Movements Output, 800 035 257 6917 1050 Drainage Output, 150 150 50 100 100 Gastric Drainage Output, Urine 195 147 120 150 180 Physical Exam: General - remains intubated and lightly sedated. opens his eyes to command. Cardiac - s1s2. reg. Lungs - clear to auscultation bilaterally Abdomen - obese. no bowel sounds appreciated. CONNIE drains leaking around entry points, with copious amounts of ascitic fluid. ng tube with bilious fluid - aaron draining clear, yellow urine. Extremities - mild edema b/l. venodynes active b/l. Current Medications: Current Medications Sig/Roberto Start time Last Medication Dose Route Stop Time Status Admin Albumin Human 25 GM Q8 04/26 1400 AC 04/26 IV 2134 Albumin Human 25 GM Q8 04/22 0700 DC 04/26 IV 0556 Albuterol Sulfate 3 ML Q4P PRN 04/22 1145 AC 04/22 INH 1134 Fat Emulsion 350 ML Q24H 04/26 1900 AC 04/26 Intravenous IV 04/27 1859 203 Fat Emulsion 350 ML Q24H 04/25 1900 DC 04/25 Intravenous IV 04/26 185 1930 Fentanyl Citrate 1,000 MCG Q14H 04/24 1700 AC 04/26 Dextrose/Water 250 ML IV 1629 Heparin Sodium 5,000 UNIT Q8 04/24 1400 AC 04/26 (Porcine) SC 2136 Hydromorphone HCl 2 MG Q6P PRN 04/22 0930 AC IV Lorazepam 100 MG Q24H 04/26 1930 04/26 Sodium Chloride 1,000 ML IV 2037 Lorazepam 50 MG Q24H 04/23 1315 DC 04/26 Sodium Chloride 500 ML IV 0648 Lorazepam 0 Q1P PRN 04/22 0700 AC 04/23 IV 0547 Meropenem 1 GM IQ8 04/23 1600 AC 04/27 IV 0003 Norepinephrine 4 MG Q24H 04/22 1000 DC 04/24 Sodium Chloride 250 ML IV 0919 Ondansetron HCl 4 MG Q8P PRN 04/22 0600 AC IV Pantoprazole Sodium 40 MG BID 04/22 2200 04/26 IV 2130 Sodium Chloride 1,000 ML Q20H 04/26 1215 CAN IV Sodium Chloride 1,000 ML Q8H 04/23 0115 AC 04/27 IV 0136 Total Parenteral 1 UNIT Q24H 04/26 1900 AC 04/26 Nutrition IV 04/27 1859 203 Total Parenteral 1 UNIT Q24H 04/25 190 DC 04/25 Nutrition IV 04/26 1859 193 Results Last 48 Hours of Labs: Laboratory Tests 04/27 04/26 04/26 0433 1845 1800 Blood Gas pH (7.35 - 7.45 PH) 7.35 pCO2 (35 - 45 TORR) 38 pO2 (80 - 100 TORR) 86 HCO3 (21 - 28 MEQ/L) 20 L ABG O2 Sat (Measured) (>96.0 %) 94.0 L P-50 (Temp Corrected) N Carboxyhemoglobin (1.5 - 5.0 %) 0.3 L O2 Concentration % 40% Temperature (97.0 - 100.0 FARH) 99.1 Respiration Rate (BPM) 18 O2 Delivery Method ESPRIT Vent Mode AC Expiratory Pressure (CMH2O/P) 5 Tidal Volume (CC) 550 Chemistry Sodium (137 - 145 mmol/L) 136 L Potassium (3.5 - 5.1 mmol/L) 4.5 Chloride (98 - 107 mmol/L) 105 Carbon Dioxide (22 - 30 mmol/L) 22 Anion Gap (5 - 16) 9 BUN (9 - 20 mg/dL) 54 H Creatinine (0.7 - 1.2 mg/dL) 2.0 H Estimated GFR (>60 ml/min) 36 L Glucose (65 - 99 mg/dL) 126 H Calcium (8.4 - 10.2 mg/dL) 8.1 L Phosphorus (2.5 - 4.5 mg/dL) 3.8 Magnesium (1.6 - 2.3 mg/dL) 2.2 Total Bilirubin (0.2 - 1.3 mg/dL) 2.7 H AST (17 - 59 U/L) 105 H ALT (21 - 72 U/L) 34 Albumin (3.5 - 5.0 g/dL) 2.5 L Hematology CBC w Diff NO MAN DIFF REQ WBC (4.8 - 10.8 /CUMM) 8.7 RBC (4.70 - 6.10 /CUMM) 2.90 L Hgb (14.0 - 18.0 G/DL) 9.3 L Hct (42 - 52 %) 28.8 L MCV (80.0 - 94.0 FL) 99.1 H MCH (27.0 - 31.0 PG) 32.2 H RDW (11.5 - 14.5 %) 16.0 H Plt Count (130 - 400 /CUMM) 132 MPV (7.4 - 10.4 FL) 8.8 Gran % (42.2 - 75.2 %) 72.8 Lymphocytes % (20.5 - 51.1 %) 7.4 L Monocytes % (1.7 - 9.3 %) 18.0 H Eosinophils % (0 - 5 %) 1.5 Basophils % (0.0 - 2.0 %) 0.3 PUBS MCHC (33.0 - 37.0 G/DL) 32.5 L Immunology Absolute Granulocytes (1.4 - 6.5 /CUMM) 6.3 Absolute Lymphocytes (1.2 - 3.4 /CUMM) 0.6 L Absolute Monocytes (0.10 - 0.60 /CUMM) 1.6 H Absolute Eosinophils (0.0 - 0.7 /CUMM) 0.1 Absolute Basophils (0.0 - 0.2 /CUMM) 0 Miscellaneous Phlebotomy Draw Site [facility] Toxicology Random Vancomycin (ug/ml) Pending Urines Ur Creatinine 24 Hour Cancelled 04/26 04/26 04/25 1800 0420 0701 Chemistry Sodium (137 - 145 mmol/L) 134 L 134 L Potassium (3.5 - 5.1 mmol/L) 4.1 4.1 Chloride (98 - 107 mmol/L) 103 104 Carbon Dioxide (22 - 30 mmol/L) 23 24 Anion Gap (5 - 16) 8 7 BUN (9 - 20 mg/dL) 48 H 42 H Creatinine (0.7 - 1.2 mg/dL) 2.0 H 1.8 H Estimated GFR (>60 ml/min) 36 L 40 L BUN/Creatinine Ratio (7 - 25 %) 24.0 Glucose (65 - 99 mg/dL) 122 H Calcium (8.4 - 10.2 mg/dL) 8.1 L Phosphorus (2.5 - 4.5 mg/dL) 3.2 Magnesium (1.6 - 2.3 mg/dL) 2.1 Total Bilirubin (0.2 - 1.3 mg/dL) 2.9 H AST (17 - 59 U/L) 86 H ALT (21 - 72 U/L) 44 Albumin (3.5 - 5.0 g/dL) 2.5 L Triglycerides (<150 mg/dL) 150 Coagulation PT (9.4 - 12.5 SEC) 16.5 H INR (0.90 - 1.17) 1.58 H Hematology CBC w Diff NO MAN DIFF REQ WBC (4.8 - 10.8 /CUMM) 7.6 RBC (4.70 - 6.10 /CUMM) 2.78 L Hgb (14.0 - 18.0 G/DL) 8.8 L Hct (42 - 52 %) 27.6 L MCV (80.0 - 94.0 FL) 99.1 H MCH (27.0 - 31.0 PG) 31.6 H RDW (11.5 - 14.5 %) 16.2 H Plt Count (130 - 400 /CUMM) 118 L MPV (7.4 - 10.4 FL) 8.5 Gran % (42.2 - 75.2 %) 72.8 Lymphocytes % (20.5 - 51.1 %) 7.7 L Monocytes % (1.7 - 9.3 %) 17.5 H Eosinophils % (0 - 5 %) 1.5 Basophils % (0.0 - 2.0 %) 0.5 PUBS MCHC (33.0 - 37.0 G/DL) 31.9 L Immunology Absolute Granulocytes (1.4 - 6.5 /CUMM) 5.5 Absolute Lymphocytes (1.2 - 3.4 /CUMM) 0.6 L Absolute Monocytes (0.10 - 0.60 /CUMM) 1.3 H Absolute Eosinophils (0.0 - 0.7 /CUMM) 0.1 Absolute Basophils (0.0 - 0.2 /CUMM) 0 Urines Ur Creatinine 24 Hour (mg/dL) 325.2 Ur Sodium 24 Hour (30 - 90 mmol/L) < 5 L Fraction Sodium Excret (<1% %) Ur Potassium 24 Hour (mmol/L) 72.4 Assessment/Plan Assessment/Plan Patient is a 50-year-old male, morbidly obese with a history of heavy alcohol use, who is now postoperative day #5 s/p lap Clint patch of duodenal ulcer and liver biopsy. 12 L of ascitic fluid were drained intraoperatively and continue to drain from the JPs. keep npo with NG tube continue TPN for nutritional support continue weaning trials fentanyl drip for sedation and pain control continue meropenem for peritonitis. f/u ID input GI prophylaxis with IV Protonix twice a day continue to monitor CONNIE output may need continued bolusing for insensible losses will d/w
--- NOTE | 2016-04-27 07:30 | NUR ---
PT REMAINED WITH SAS-4 FOR SHIFT-ATIVAN GTT REMAINS AT 4MG/HR, FENTANYL GTT AT 75MCG/HR. SOFT BILATERAL WRIST RESTRAINTS REMAIN ON. BREATH SOUNDS CLEAR, DIMINISHED BREATH SOUNDS AT BASES BILATERALLY. SUCTIONING FOR MOD AMT THICK WHITE SECREATIONS. 02 SATS 92-95% FOR SHIFT. BP-90'S FOR SHIFT. NSR-70'S FOR SHIFT, OCC PVC'S. ABD REMAINS SOFT, DISTENDED, ABSENT BOWEL SOUNDS. NGT DRAINING GREEN BILIOUS DRAINAGE-ON Q2, OFF Q2 ORDERED. CONNIE'S DRAINING LG AMT OF SEROUS DRAINAGE. LEAKING AROUOND CONNIE'S, ESPECIALLY THE RT-DRESSINGS CHANGED MULTIPLE TIMES. STERLING DRAINING BORDERLINE AMT OF DARK PATRICK URINE. SKIN INTACT. 2+ GENERALIZED EDEMA
[2016-04-27 08:00] VITALS: BP 94/46
--- NOTE | 2016-04-27 08:30 | NUR ---
REC'D THE PT ORALLY INTUBATED AND MECHANICALLY VENTILATED PER MD ORDER. REMAINS ON FENTANYL AT 75MCG/HR AND ATIVAN AT 4MG/HR BOTH INFUSING VIA THE WHITE PORT OF A NIHARIKA PICC. SAS IS A 4. DROWSY BUT AROUSABLE AND DRIFTS OFF TO SLEEP AFTER A FEW MINUTES AWAKE. BROWN. PT IS IN A NSR WITHOUT ECTOPY PER THE TAXI PROPRIETOR. PT HAS 1+ GENERALIZED EDEMA. CVP VIA THE RED PORT OF THE PICC IS 12. MOIZ BS ARE CLEAR BUT DIMINISHED AT THE BASES. O2 SAT IS 94% ON AN FIO2 OF 40%. ABD IS DISTENDED BUT SOFT WITH ABSENT BOWEL SOUNDS. NGT TO R NARE ON SUCTION FOR 2 HOURS AND OFF SUCTION FOR 2 HOURS. RETURNED TO [facility] AT 0800, DRAINING BILIOUS FLUID. DRESSINGS TO ALL CONNIE'S CHANGED THIS AM. THE MOST DRAINAGE NOTED FROM THE R ABD CONNIE(#3), FOLLOWED BY THE MIDLINE ABD(#2) AND THEN THE L ABD(#1). CONVERSELY # 3 HAD THE LEAST OUTPUT NOTED TO THE CONNIE. BOTH THE L AND MID ABD CONNIE'S EMPTIED OF 150ML SEROUS FLUID. STERLING IN PLACE DRAINING CLEAR PATRICK URINE OF APPROXIMATELY 30ML/HR. REMAINS ON TPN AND LIPIDS AT PRESCRIBED RATES INFUSING VIA THE AHN PORT OF THE PICC. PT IS ALSO RECEIVING NS AT 100ML/HR VIA THE WHITE PORT OF THE PICC.
--- NOTE | 2016-04-27 09:13 | PN- Infect Dx ---
Subjective Subjective: Afebrile. He offers no complaints. His blood pressure remains borderline off pressors. Weaning has so far been unsuccessful. Objective Last 24 Hrs of Vital Signs/I&O Vital Signs Date Time Temp Pulse Resp B/P Pulse O2 O2 Flow FiO2 Ox Delivery Rate 04/27 0748 40 04/27 0549 40 04/27 0400 93 Ventilator 40% 04/27 0318 40 04/27 0002 40 04/27 0000 94 Ventilator 40% 04/26 2300 97.3 78 18 102/58 94 Ventilator 40% 04/26 2217 40 04/26 2000 94 Ventilator 40% 04/26 1940 40 04/26 1615 40 04/26 1600 94 Ventilator 40% 04/26 1600 99.1 72 18 102/52 94 Ventilator 40% 04/26 1410 40 04/26 1200 94 Ventilator 40% 04/26 1111 40 04/26 1000 98.9 70 18 86/35 Intake & Output 04/27 1600 04/27 0800 04/27 0000 Intake Total 2262.0 2725.0 Output Total 1140 1145 Balance 1122.0 1580.0 Intake, IV 1448 1877 Intake, Lipid 111.0 116.0 Intake, Oral 0 Intake, 703 732 TPN/PPN Number 0 0 Bowel Movements Output, 830 800 Drainage Output, 100 150 Gastric Drainage Output, Urine 210 195 Physical Exam Other Physical Findings: He is awake and alert on the ventilator Lungs scattered rhonchi bilaterally Heart regular rhythm with no murmur Abdomen is distended, no bowel sounds audible; CONNIE drains remain in place Extremities PICC in the right upper extremity with no inflammation at the site; 1+ edema both lower extremities Ann catheter remains in place Results Last 24 Hours of Lab Results: Laboratory Tests 04/27 04/26 04/26 0433 1845 1800 Blood Gas pH (7.35 - 7.45 PH) 7.35 pCO2 (35 - 45 TORR) 38 pO2 (80 - 100 TORR) 86 HCO3 (21 - 28 MEQ/L) 20 L ABG O2 Sat (Measured) (>96.0 %) 94.0 L P-50 (Temp Corrected) N Carboxyhemoglobin (1.5 - 5.0 %) 0.3 L O2 Concentration % 40% Temperature (97.0 - 100.0 FARH) 99.1 Respiration Rate (BPM) 18 O2 Delivery Method ESPRIT Vent Mode AC Expiratory Pressure (CMH2O/P) 5 Tidal Volume (CC) 550 Chemistry Sodium (137 - 145 mmol/L) 136 L Potassium (3.5 - 5.1 mmol/L) 4.5 Chloride (98 - 107 mmol/L) 105 Carbon Dioxide (22 - 30 mmol/L) 22 Anion Gap (5 - 16) 9 BUN (9 - 20 mg/dL) 54 H Creatinine (0.7 - 1.2 mg/dL) 2.0 H Estimated GFR (>60 ml/min) 36 L Glucose (65 - 99 mg/dL) 126 H Calcium (8.4 - 10.2 mg/dL) 8.1 L Phosphorus (2.5 - 4.5 mg/dL) 3.8 Magnesium (1.6 - 2.3 mg/dL) 2.2 Total Bilirubin (0.2 - 1.3 mg/dL) 2.7 H AST (17 - 59 U/L) 105 H ALT (21 - 72 U/L) 34 Albumin (3.5 - 5.0 g/dL) 2.5 L Hematology CBC w Diff NO MAN DIFF REQ WBC (4.8 - 10.8 /CUMM) 8.7 RBC (4.70 - 6.10 /CUMM) 2.90 L Hgb (14.0 - 18.0 G/DL) 9.3 L Hct (42 - 52 %) 28.8 L MCV (80.0 - 94.0 FL) 99.1 H MCH (27.0 - 31.0 PG) 32.2 H RDW (11.5 - 14.5 %) 16.0 H Plt Count (130 - 400 /CUMM) 132 MPV (7.4 - 10.4 FL) 8.8 Gran % (42.2 - 75.2 %) 72.8 Lymphocytes % (20.5 - 51.1 %) 7.4 L Monocytes % (1.7 - 9.3 %) 18.0 H Eosinophils % (0 - 5 %) 1.5 Basophils % (0.0 - 2.0 %) 0.3 PUBS MCHC (33.0 - 37.0 G/DL) 32.5 L Immunology Absolute Granulocytes (1.4 - 6.5 /CUMM) 6.3 Absolute Lymphocytes (1.2 - 3.4 /CUMM) 0.6 L Absolute Monocytes (0.10 - 0.60 /CUMM) 1.6 H Absolute Eosinophils (0.0 - 0.7 /CUMM) 0.1 Absolute Basophils (0.0 - 0.2 /CUMM) 0 Miscellaneous Phlebotomy Draw Site DOUGLAS Toxicology Random Vancomycin (ug/ml) < 5.0 Urines Ur Creatinine 24 Hour Cancelled 04/26 1800 Chemistry Sodium (137 - 145 mmol/L) 134 L Potassium (3.5 - 5.1 mmol/L) 4.1 Chloride (98 - 107 mmol/L) 103 Carbon Dioxide (22 - 30 mmol/L) 23 Anion Gap (5 - 16) 8 BUN (9 - 20 mg/dL) 48 H Creatinine (0.7 - 1.2 mg/dL) 2.0 H Estimated GFR (>60 ml/min) 36 L BUN/Creatinine Ratio (7 - 25 %) 24.0 Urines Ur Creatinine 24 Hour (mg/dL) 325.2 Ur Sodium 24 Hour (30 - 90 mmol/L) < 5 L Fraction Sodium Excret (<1% %) Ur Potassium 24 Hour (mmol/L) 72.4 Last 24 Hours of Garcia Results: Blood cultures April 24 negative Urine culture April 25 negative Recent Imaging Studies: Chest x-ray April 27 bilateral haziness, possibly secondary to low lung volumes and underpenetrated study, with cardiomegaly Assessment/Plan Impression: Overall improved with temperatures and white blood cell count remaining normal on Meropenem for polymicrobial peritonitis now 5 days status post laparoscopic Clint plication of a perforated duodenal ulcer. His creatinine has increased, with several possible etiologies noted, but it is stable today. His blood pressure remains borderline off pressors. Suggestion: 1. Continue Meropenem
--- NOTE | 2016-04-27 10:15 | PN- Pulmonary ---
Subjective HPI/Critical Care Issues: Patient remains sedated intubated. His blood pressures remain borderline despite increase in CVP Objective Current Medications: Current Medications Sig/Roberto Start time Last Medication Dose Route Stop Time Status Admin Albumin Human 25 GM Q8 04/26 1400 AC 04/27 IV 0618 Albumin Human 25 GM Q8 04/22 0700 DC 04/26 IV 0556 Albuterol Sulfate 3 ML Q4P PRN 04/22 1145 AC 04/22 INH 1134 Fat Emulsion 350 ML Q24H 04/26 1900 AC 04/26 Intravenous IV 04/27 1859 203 Fat Emulsion 350 ML Q24H 04/25 1900 DC 04/25 Intravenous IV 04/26 185 1930 Fentanyl Citrate 1,000 MCG Q14H 04/24 1700 AC 04/27 Dextrose/Water 250 ML IV 0622 Heparin Sodium 5,000 UNIT Q8 04/24 1400 AC 04/27 (Porcine) SC 0620 Hydromorphone HCl 2 MG Q6P PRN 04/22 0930 AC IV Lorazepam 100 MG Q24H 04/26 1930 AC 04/26 Sodium Chloride 1,000 ML IV 2037 Lorazepam 50 MG Q24H 04/23 1315 DC 04/26 Sodium Chloride 500 ML IV 0648 Lorazepam 0 Q1P PRN 04/22 0700 AC 04/23 IV 0547 Meropenem 1 GM IQ8 04/23 1600 AC 04/27 IV 0825 Norepinephrine 4 MG Q24H 04/22 1000 DC 04/24 Sodium Chloride 250 ML IV 0919 Ondansetron HCl 4 MG Q8P PRN 04/22 0600 AC IV Pantoprazole Sodium 40 MG BID 04/22 2200 AC 04/27 IV 0935 Sodium Chloride 1,000 ML Q20H 04/26 1215 CAN IV Sodium Chloride 1,000 ML Q8H 04/23 0115 AC 04/27 IV 0848 Total Parenteral 1 UNIT Q24H 04/26 1900 AC 04/26 Nutrition IV 04/27 1859 203 Total Parenteral 1 UNIT Q24H 04/25 1900 DC 04/25 Nutrition IV 04/26 185 1930 Vital Signs & I&O Last 24 Hrs of Vitals and I&O: Vital Signs Date Time Temp Pulse Resp B/P Pulse O2 O2 Flow FiO2 Ox Delivery Rate 04/27 0748 40 04/27 0549 40 04/27 0400 93 Ventilator 40% 04/27 0318 40 04/27 0002 40 04/27 0000 94 Ventilator 40% 04/26 2300 97.3 78 18 102/58 94 Ventilator 40% 04/26 2217 40 04/26 2000 94 Ventilator 40% 04/26 1940 40 04/26 1615 40 04/26 1600 94 Ventilator 40% 04/26 1600 99.1 72 18 102/52 94 Ventilator 40% 04/26 1410 40 04/26 1200 94 Ventilator 40% 04/26 1111 40 Intake & Output 04/27 1600 04/27 0800 04/27 0000 Intake Total 2262.0 2725.0 Output Total 1140 1145 Balance 1122.0 1580.0 Intake, IV 1448 1877 Intake, Lipid 111.0 116.0 Intake, Oral 0 Intake, 703 732 TPN/PPN Number 0 0 Bowel Movements Output, 830 800 Drainage Output, 100 150 Gastric Drainage Output, Urine 210 195 Since saturation 40% 93% input continues to exceed output exam of his chest shows diminished breath sounds cardiac exam shows regular S1 and S2 without murmurs abdominal exam Impression/Plan Impression/Plan Impression/Plan: 30-year-old gentleman status post perforated viscus and secondary sepsis with multiorgan system failure. He's developing worsening acute kidney injury with rising creatinine. Rising creatinine concern over borderline blood pressure would resume low-dose liters fed to maintain his blood pressure above 100. Recommendations: Maintain CVP approximately 12. If blood pressure remains borderline would resume low-dose levo fed. Continue current antibiotic regimen. Continue current ventilator setting,
--- NOTE | 2016-04-27 10:52 | PN- Resident CRCU ---
Subjective HPI/CRCU Issues: patient is a 50 y/o Male, with a significant past medical history of hypertension, hyperlipidemia, GERD, diverticulosis, degenerative joint disease, a vascular necrosis status post hip replacement, fatty liver disease, alcohol abuse presented with chronic alcohol abuse, nausea, vomting, abd distension and pain which got worse so he presented to ED on 04/21/2016. On Evaluation CT scan showed pneumoperitoneum, moderate ascites.On examination the abdomen was distended and tender to palpation , so diagnostic paracentesis was done which showed WBC 9504, RBC 2156. Because of the perforation, It seems that patient developed the secondary bacterial peritonitis. We took surgical consultation. The next couple of hours patient went into septicemia and shock. So he was given IV fluids and prophylactic antibiotics including ceftriaxone metronidazole and vancomycin. We catheterized the patient. Despite of these measures his blood pressure going down , so we took surgical consultation and plan for emergent surgery. Meantime, we intubated the patient and put him on mechanical ventilation(assist control mode, TV-500, respiratory rate 28, PEEP 5, FiO2 100%), triple-lumen catheter was placed in the right side of jugular vein. Patients blood pressure was continuosly going down, so we started him on Levothroid/vasopressin. We also started him on fentanyl and propofol drip. The culture of the ascites fluid came back positive for gram-negative. We took the consult from infectious disease specialist/Abdullahi Osuna MD. He advised to change ceftriaxone to ceftazidime and advised to wait for sensitivities report. Patient went to surgery on 04/22/2016. In postop, His blood pressure was 119/62. He is improving after surgery. We are decreasing the amount of pressers required to keep his blood pressure normal. CRCU Issues - Perforated duodenal ulcer s/p exploratory laparoscopy with grahm plication of duodenal ulcer Secondary bacterial Peritonitis Septic shock with MODS/ MATT improving/ Lactic acidosis improving/ Alcoholic hepatitis with transaminitis Ascitis Sigmoid Diverticulitis Hypertension Hyperlipidemia Morbidly Obese 24 Hour Events: Overnight, Patient's Blood pressure remained low, he is afebrile and has hourly urine output is around 40/hr. 10Am - According to Doppler target CVP 12, and BP >100. If BP goes down, we'll start patient on low-dose Levophed. Objective Vital Signs & I&O Last 8 Hrs of Vitals and I&O: Max Min BP 100/38 94/54 HR 90 68 Temp 98 99 RR 18 18 Exam General Appearance: well developed/nourished, no apparent distress, sedated, intubated Head: atraumatic, normal appearance Ears, Nose, Throat: cannot be examined due to NG tube and endotracheal tube Neck: supple, having scar mckayla and dressing on the right side Respiratory: On ventilator, bilateral air entry present,mild crepts on Base, Occasional Wheezing Cardiovascular: regular rate/rhythm, edema Gastrointestinal: non-tender, distended with 3 CONNIE drains, bowel sounds absent, Extremities: normal inspection, normal capillary refill, pedal edema Weaning Parameters NIF: 17 Minute Volume: 5.09 Resp rate: 19 Vt: 150 Heart Rate: 84 Weaning Schedule Start Time: 1105 Minute Volume: 10.3 Resp Rate: 18 Vt: 621 Heart Rate: 83 End Time: 1107 Minute Volume: 0 Resp Rate: 0 Vt: 0 Heart Rate: 83 PICC Site: right arm Date In: 04/26/16 Need for Catheter for antibiotics and IV fluids and TPN Current Medications: Current Medications Sig/Roberto Start time Last Medication Dose Route Stop Time Status Admin Albumin Human 25 GM Q8 04/26 1400 AC 04/27 IV 1352 Albuterol Sulfate 3 ML Q4P PRN 04/22 1145 AC 04/22 INH 1134 Fat Emulsion 350 ML Q24H 04/27 1900 AC 04/27 Intravenous IV 04/28 1859 1938 Fat Emulsion 350 ML Q24H 04/26 1900 DC 04/26 Intravenous IV 04/27 1859 2037 Fentanyl Citrate 1,000 MCG Q14H 04/24 1700 AC 04/27 Dextrose/Water 250 ML IV 1958 Heparin Sodium 5,000 UNIT Q8 04/24 1400 AC 04/27 (Porcine) SC 1352 Hydromorphone HCl 2 MG Q6P PRN 04/22 0930 AC IV Lorazepam 100 MG Q24H 04/26 1930 AC 04/27 Sodium Chloride 1,000 ML IV 1958 Lorazepam 0 Q1P PRN 04/22 0700 AC 04/23 IV 0547 Meropenem 1 GM IQ8 04/23 1600 AC 04/27 IV 1606 Norepinephrine 4 MG Q24H 04/27 1045 04/27 Sodium Chloride 250 ML IV 1107 Ondansetron HCl 4 MG Q8P PRN 04/22 0600 IV Pantoprazole Sodium 40 MG BID 04/22 2200 AC 04/27 IV 0935 Sodium Chloride 1,000 ML Q8H 04/23 0115 AC 04/27 IV 1906 Total Parenteral 1 UNIT Q24H 04/27 1900 AC 04/27 Nutrition IV 04/28 Total Parenteral 1 UNIT Q24H 04/26 1900 DC 04/26 Nutrition IV 04/27 Impression/Plan Impression/Problem List Impression: Impression and Plan - Patient is arousable, responding to command, c/o pain. He is on fentanyl drip, and levofed. POD-5 Ventilator -D5 Left Radial artery line, CONNIE drains-3 - D5 Foleys cathter -D5, urine is having blood/ hematuria Respiratory According to Dr. Arroyo, We'll keep the CVP of 12 and BP > 100. Blood pressure remained below, then we will start patient on low-dose levofed. He is on ventilator, Ventilator Settings is -AC, TV-550, IPAP -24, RR-18, PEEP-5 , Fio2 45. wheezing in both lungs ABG showed -PH-7.35,PCo2-38,PO2-86, Infectious Ascitic fluids is growing -enterobacter cloacae and alpha strept. We will follow ID rcms We will continue Meopenem 1g iv 8hrly. 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 Cardiology Patient is responding to vasopressor, we will taper according to protocol. His HR-70 BP -100/63 , EKG is NSR Gastroenterology According to the surgeons, we will continue nothing by mouth, NG tube, TPN, weaning trial, fentanyl drip, measuring, obtaining, GI prophylaxis, monitoring CONNIE output. There are 3 CONNIE drains -830 Abdoman is soft, still no bowel sounds on examiantion We will do strict Intake output Charting We will follow GI rcms Patient is undergoing alcohol withdrawl, we will give Ativan according to CIWA protocol. Urology BUN -54 Cr-2 Creatinine has been increased. We'll monitor it regularly Urine output in last 24 hrs is 1140cc We will continue IV fluids -150 ml/hrs Strict I/O charting Endocrine TSH -8.9, T4 -1.85 It seems patient is having Sick Euthyroid syndrome. We discussed with endocrinology. We will repeat TFT after patient get recovered. Skin There are multiple dressings on the skin, abdomen for drain, Diet -we started patient on TPN as advised by dietitian. DVT prophylaxis -ALPS/ Heparin CODE STATUS-full code Problem List: 1. Sepsis 2. At risk for ventilator-associated event 3. Ascites 4. Peritonitis 5. Perforation bowel 6. MATT (acute kidney injury) Pain Ratin Pain Location: Abdomen Pain Plan: Patient is on IV fentanyl Tomorrow's Labs & Rationales: CBC, albumin, chest x-ray, ABG Plan DVT/Prophylaxis: mechanical
--- NOTE | 2016-04-27 11:35 | NUR ---
AT 1100 THE PT WAS STARTED ON LEVOPHED 5MCG/MIN OR 18.8ML INFUSING VIA THE WHITE PORT OF THE PICC FOR A SBP IN THE LOW 80'S TO 90'S MANUALLY AND IN THE80'S VIA THE AUTOCUFF. SBP OF 1130 HAS INCREASED TO 106/48. WILL CONTINUE TO MONITOR.
--- NOTE | 2016-04-27 13:21 | RADIOLOGY REPORT ---
EXAMINATION: XR PORTABLE CHEST CLINICAL INFORMATION: Intubated patient on mechanical ventilation. COMPARISON: Multiple prior chest x-rays, most recent of which is dated 04/26/2016. TECHNIQUE: AP erect portable view of the chest was obtained. FINDINGS: Endotracheal tube is in place with tip 3.7 cm above the ching. Enteric tube is seen coursing into the distal esophagus with the tip not adequately visualized on this exam. A right subclavian PICC line is in place with tip in the cavoatrial junction, unchanged. Multiple EKG leads overlie the chest. Cardiomediastinal silhouette remains enlarged. Mild central vascular congestion is seen. There is a moderate right-sided pleural effusion, increasing in size compared to the prior exam. Associated volume loss seen in the right lower lung. The left lung remains fully expanded. There is no significant change in the retrocardiac left lung base density, likely a combination of AP technique and left basilar subsegmental atelectasis. No pneumothorax is seen. Bony structures are grossly unremarkable. IMPRESSION: 1. Endotracheal tube tip 3.7 cm above the cihng. 2. Suspect increase in size of right-sided pleural effusion compared to prior studies. Associated right basilar lung parenchymal volume loss remains similar.
--- NOTE | 2016-04-27 14:02 | ULTRASOUND REPORT ---
EXAMINATION: US RETROPERITONEAL COMPLETE (RENAL) CLINICAL INFORMATION: Elevated creatinine level. Evaluate for obstruction, nephrolithiasis or hydronephrosis. COMPARISON: CT scan of the abdomen and pelvis dated 04/22/2016. TECHNIQUE: Real-time imaging of the kidneys and bladder. FINDINGS: Evaluation is significantly limited due to patient's body habitus and inability to move or control respirations. RIGHT KIDNEY: The right kidney is only visualized in outline, measuring approximately 12.3 x 5.8 x 6.3 cm (SAG x AP x TRV). The kidney is otherwise not adequately assessed LEFT KIDNEY: 12.7 x 7.0 x 5.6 cm (SAG x AP x TRV). The kidney is normal in size, contour, and echogenicity. Renal cortical thickness is normal. No calculi or focal parenchymal lesions. No hydronephrosis. BLADDER: Completely decompressed by a Ann catheter. Bilateral ureteral jets are not demonstrated. IMPRESSION: 1. Inadequate assessment of the right kidney and bladder. 2. Left kidney grossly unremarkable.
[2016-04-27 16:00] VITALS: BP 100/38
--- NOTE | 2016-04-27 20:00 | NUR ---
MD JOHNSON MADE AWARE CVP 6, IVF INCREASED TO 150ML.HR, WILL CONT TO MONITOR.
[2016-04-28] VITALS: BP 108/50
[2016-04-28 05:11] LABS: ABSOLUTE BASOPHIL COUNT 0 /CUMM (0.0-0.2); ABSOLUTE EOSINOPHIL COUNT 0.1 /CUMM (0.0-0.7); ABSOLUTE GRANULOCYTE CT 5.8 /CUMM (1.4-6.5); ABSOLUTE LYMPH COUNT 0.8 /CUMM (1.2-3.4); ABSOLUTE MONOCYTE COUNT 1.7 /CUMM (0.10-0.60); BASOPHIL % 0.3 % (0.0-2.0); EOSINOPHIL % 1.4 % (0-5); GRANULOCYTE % 68.5 % (42.2-75.2); HEMATOCRIT 27.7 % (42-52); MEAN CORPUSCULAR HGB 31.9 PG (27.0-31.0); MEAN CORPUSCULAR HGB CONC 32.7 G/DL (33.0-37.0); MEAN CORPUSCULAR VOLUME 97.7 FL (80.0-94.0); MEAN PLATELET VOLUME 9.2 FL (7.4-10.4); PLATELET COUNT 143 /CUMM (130-400); RBC DISTRIBUTION WIDTH 15.8 % (11.5-14.5); RED BLOOD CELL CT 2.83 /CUMM (4.70-6.10); WHITE BLOOD CELL COUNT 8.4 /CUMM (4.8-10.8)
--- NOTE | 2016-04-28 05:56 | PN- General Surgery ---
Subjective Subjective: Pt had an episode of hypoxia yesterday, requiring levophed for about 8 hours. He remains sedated on decreased dose of ativan. Fentanyl has been DC'ed since pt is less alert. Failed weaning trial yesterday. JPs continue to drain large amounts of ascitic fluid. No further blood noted in NGT. Pt is unable to follow commands or nod for questions this morning due to sedation. Objective Vital Signs and I&Os Vital Signs Date Time Temp Pulse Resp B/P Pulse O2 O2 Flow FiO2 Ox Delivery Rate 04/28 0400 91 Ventilator 40% 04/28 0329 40 04/28 0039 40 04/28 0000 98.9 76 20 108/50 93 Ventilator 40% 04/28 0000 93 Ventilator 40% 04/27 2218 40 04/27 2000 92 Ventilator 40% 04/27 1902 40 04/27 1623 40 04/27 1600 94 Ventilator 40% 04/27 1600 98.6 70 18 100/38 94 Ventilator 40% 04/27 1335 40 04/27 1200 92 Ventilator 40% 04/27 1124 40 04/27 1107 98.5 65 18 81/33 04/27 0800 94 Ventilator 40% 04/27 0800 98.5 71 18 94/46 94 Ventilator 40% 04/27 0748 40 Intake & Output 04/28 0804/28 0000 04/27 1600 04/27 0800 04/27 0000 04/26 1600 Intake Total 2363.0 2203 2262.0 2725.0 2013 Output Total 1505 1085 1140 1145 1267 Balance 858.0 1118 1122.0 1580.0 747 Intake, IV 1519 2163 1448 1877 2013 Intake, Lipid 112.0 111.0 116.0 Intake, Oral 0 0 Intake, Other 20 40 Intake, 712 703 732 TPN/PPN Number 0 0 0 Bowel Movements Output, 1075 605 830 800 970 Drainage Output, 150 250 100 150 150 Gastric Drainage Output, Urine 280 230 210 195 147 Physical Exam: Gen.: Patient remains intubated and sedated. He opens his eyes when he hears his name, but does not follow commands were not any questions today. He seems much more sedated versus previous days, despite decreased medications. Abdomen: Rounded, obese. [address] and continue to put out large amounts of ascitic fluid. There is still some drainage around the JPs, but they do not appear to be clogged. NG tube output is bilious, decreasing in volume. 100 for the last shift, 150 and 250 previously. No significant bowel sounds were heard. Results Last 48 Hours of Labs: Laboratory Tests 04/28 04/27 0410 0437 Chemistry Sodium (137 - 145 mmol/L) 137 136 L Potassium (3.5 - 5.1 mmol/L) 4.7 4.5 Chloride (98 - 107 mmol/L) 106 105 Carbon Dioxide (22 - 30 mmol/L) 22 22 Anion Gap (5 - 16) 9 9 BUN (9 - 20 mg/dL) 64 H 54 H Creatinine (0.7 - 1.2 mg/dL) 1.8 H 2.0 H Estimated GFR (>60 ml/min) 40 L 36 L Glucose (65 - 99 mg/dL) 134 H 126 H Calcium (8.4 - 10.2 mg/dL) 8.3 L 8.1 L Phosphorus (2.5 - 4.5 mg/dL) 3.9 3.8 Magnesium (1.6 - 2.3 mg/dL) 2.3 2.2 Total Bilirubin (0.2 - 1.3 mg/dL) 2.4 H 2.7 H AST (17 - 59 U/L) 98 H 105 H ALT (21 - 72 U/L) 32 34 Albumin (3.5 - 5.0 g/dL) 2.5 L 2.5 L Hematology CBC w Diff MAN DIFF ORDERED NO MAN DIFF REQ WBC (4.8 - 10.8 /CUMM) 8.4 8.7 RBC (4.70 - 6.10 /CUMM) 2.83 L 2.90 L Hgb (14.0 - 18.0 G/DL) 9.1 L 9.3 L Hct (42 - 52 %) 27.7 L 28.8 L MCV (80.0 - 94.0 FL) 97.7 H 99.1 H MCH (27.0 - 31.0 PG) 31.9 H 32.2 H RDW (11.5 - 14.5 %) 15.8 H 16.0 H Plt Count (130 - 400 /CUMM) 143 132 MPV (7.4 - 10.4 FL) 9.2 8.8 Gran % (42.2 - 75.2 %) 68.5 72.8 Lymphocytes % (20.5 - 51.1 %) 9.4 L 7.4 L Monocytes % (1.7 - 9.3 %) 20.4 H 18.0 H Eosinophils % (0 - 5 %) 1.4 1.5 Basophils % (0.0 - 2.0 %) 0.3 0.3 Segmented Neutrophils (42.2 - 75.2 %) 66 Band Neutrophils (0.0 - 5.0 %) 2 Lymphocytes (20.5 - 51.1 %) 11 L Monocytes (1.7 - 9.3 %) 15 H Eosinophils (0 - 5.0 %) 5 Metamyelocytes (0.0 - 1.0 %) 1 Platelet Estimate (ADEQUATE) ADEQUATE Polychromasia 1+ Hypochromic-Microcytic 1+ Poikilocytosis 1+ Basophilic Stippling 1+ Ovalocytes 1+ PUBS MCHC (33.0 - 37.0 G/DL) 32.7 L 32.5 L Immunology Absolute Granulocytes (1.4 - 6.5 /CUMM) 5.8 6.3 Absolute Lymphocytes (1.2 - 3.4 /CUMM) 0.8 L 0.6 L Absolute Monocytes (0.10 - 0.60 /CUMM) 1.7 H 1.6 H Absolute Eosinophils (0.0 - 0.7 /CUMM) 0.1 0.1 Absolute Basophils (0.0 - 0.2 /CUMM) 0 0 Other Body Source Fld Total RBCs Counted (%) 100 Toxicology Random Vancomycin (ug/ml) < 5.0 04/26 04/26 04/26 1845 1800 1800 Blood Gas pH (7.35 - 7.45 PH) 7.35 pCO2 (35 - 45 TORR) 38 pO2 (80 - 100 TORR) 86 HCO3 (21 - 28 MEQ/L) 20 L ABG O2 Sat (Measured) (>96.0 %) 94.0 L P-50 (Temp Corrected) N Carboxyhemoglobin (1.5 - 5.0 %) 0.3 L O2 Concentration % 40% Temperature (97.0 - 100.0 FARH) 99.1 Respiration Rate (BPM) 18 O2 Delivery Method ESPRIT Vent Mode AC Expiratory Pressure (CMH2O/P) 5 Tidal Volume (CC) 550 Chemistry Sodium (137 - 145 mmol/L) 134 L Potassium (3.5 - 5.1 mmol/L) 4.1 Chloride (98 - 107 mmol/L) 103 Carbon Dioxide (22 - 30 mmol/L) 23 Anion Gap (5 - 16) 8 BUN (9 - 20 mg/dL) 48 H Creatinine (0.7 - 1.2 mg/dL) 2.0 H Estimated GFR (>60 ml/min) 36 L BUN/Creatinine Ratio (7 - 25 %) 24.0 Miscellaneous Phlebotomy Draw Site DOUGLAS Urines Ur Creatinine 24 Hour (mg/dL) Cancelled 325.2 Ur Sodium 24 Hour (30 - 90 mmol/L) < 5 L Fraction Sodium Excret (<1% %) Ur Potassium 24 Hour (mmol/L) 72.4 Assessment/Plan Assessment/Plan Patient is a 50-year-old male, morbidly obese with a history of heavy alcohol use, who is now postoperative day #6 status post laparoscopic Clint patch of duodenal ulcer and liver biopsy. 12 L of ascitic fluid were drained intraoperatively and continue to drain from the JPs. Plan: -Continue nothing by mouth with NG tube until patient is extubated. -Continue TPN for nutritional support. Consider tube feeds soon, although we are still awaiting bowel function. -Continue weaning trials. -Pain control and Ativan drip for sedation. Wean per sedation level. -Continue meropenem for peritonitis. Appreciate ID input. -GI prophylaxis with IV Protonix twice a day. -Continue CONNIE drainage of ascitic fluid. Patient is receiving albumin. -Creatinine slightly improved this morning. Continue to monitor. -H&H remained stable. -Will discuss with attending.
--- NOTE | 2016-04-28 07:41 | PN- Resident CRCU ---
Subjective HPI/CRCU Issues: patient is a 50 y/o Male, with a significant past medical history of hypertension, hyperlipidemia, GERD, diverticulosis, degenerative joint disease, a vascular necrosis status post hip replacement, fatty liver disease, alcohol abuse presented with chronic alcohol abuse, nausea, vomting, abd distension and pain which got worse so he presented to ED on 04/21/2016. On Evaluation CT scan showed pneumoperitoneum, moderate ascites.On examination the abdomen was distended and tender to palpation , so diagnostic paracentesis was done which showed WBC 9504, RBC 2156. Because of the perforation, It seems that patient developed the secondary bacterial peritonitis. We took surgical consultation. The next couple of hours patient went into septicemia and shock. So he was given IV fluids and prophylactic antibiotics including ceftriaxone metronidazole and vancomycin. We catheterized the patient. Despite of these measures his blood pressure going down , so we took surgical consultation and plan for emergent surgery. Meantime, we intubated the patient and put him on mechanical ventilation(assist control mode, TV-500, respiratory rate 28, PEEP 5, FiO2 100%), triple-lumen catheter was placed in the right side of jugular vein. Patients blood pressure was continuosly going down, so we started him on Levothroid/vasopressin. We also started him on fentanyl and propofol drip. The culture of the ascites fluid came back positive for gram-negative. We took the consult from infectious disease specialist/Abdullahi Osuna MD. He advised to change ceftriaxone to ceftazidime and advised to wait for sensitivities report. Patient went to surgery on 04/22/2016. In postop, His blood pressure was 119/62. He is improving after surgery. We are decreasing the amount of pressers required to keep his blood pressure CRCU issues - Perforated duodenal ulcer s/p exploratory laparoscopy with grahm plication of duodenal ulcer Secondary bacterial Peritonitis Septic shock with MODS/ MATT improving/ Lactic acidosis improving/ Alcoholic hepatitis with transaminitis Ascitis Sigmoid Diverticulitis Hypertension Hyperlipidemia Morbidly Obese 24 Hour Events: Overnight patient had the same status. we stopped levofed. Now we are tapered fentanyl and stopped Ativan. We will give weaning trial today. Objective Vital Signs & I&O Last 8 Hrs of Vitals and I&O: Max Min BP 109/43 91/45 HR 76 68 Temp 100.2 98.9 RR 18 18 Exam General Appearance: well developed/nourished, sedated, intubated, obese Head: atraumatic, normal appearance Ears, Nose, Throat: PATIENT IS HAVING ENDOTRACHEAL INTUBATION and mouth piece, so cannt be examined Neck: normal inspection, supple Respiratory: normal breath sounds, chest non-tender, no respiratory distress, quiet respiration, lungs clear Cardiovascular: regular rate/rhythm, edema Gastrointestinal: soft, non-tender, distention, occasional Bowel sounds Extremities: normal inspection, normal capillary refill Weaning Parameters NIF: 17 Minute Volume: 5.09 Resp rate: 19 Vt: 150 Heart Rate: 84 Weaning Schedule Start Time: 1105 Minute Volume: 10.3 Resp Rate: 18 Vt: 621 Heart Rate: 83 End Time: 1107 Minute Volume: 0 Resp Rate: 0 Vt: 0 Heart Rate: 83 Current Medications: Current Medications Sig/Roberto Start time Last Medication Dose Route Stop Time Status Admin Albumin Human 25 GM Q8 04/26 1400 04/28 IV 1417 Albuterol Sulfate 3 ML Q4P PRN 04/22 1145 04/22 INH 1134 Fat Emulsion 350 ML Q24H 04/28 1900 Intravenous IV 04/29 185 Fat Emulsion 350 ML Q24H 04/27 1900 04/27 Intravenous IV 04/28 185 1938 Fat Emulsion 350 ML Q24H 04/26 1900 KY 04/26 Intravenous IV 04/27 185 203 Fentanyl Citrate 1,000 MCG Q14H 04/24 1700 04/27 Dextrose/Water 250 ML IV 1958 Heparin Sodium 5,000 UNIT Q8 04/24 1400 AC 04/28 (Porcine) SC 1417 Hydromorphone HCl 2 MG Q6P PRN 04/22 0930 IV Lorazepam 100 MG Q24H 04/26 1930 DC 04/27 Sodium Chloride 1,000 ML IV 1958 Lorazepam 0 Q1P PRN 04/22 0700 04/23 IV 0547 Meropenem 1 GM IQ8 04/23 1600 AC / IV 0807 Norepinephrine 4 MG Q24H / 1045 04/27 Sodium Chloride 250 ML IV 1107 Ondansetron HCl 4 MG Q8P PRN 04/22 0600 IV Pantoprazole Sodium 40 MG BID 04/22 2200 AC 04/28 IV 1045 Sodium Chloride 1,000 ML Q8H 04/23 0115 04/28 IV 1044 Total Parenteral 1 UNIT Q24H 04/28 190 AC Nutrition IV 04/29 1859 Total Parenteral 1 UNIT Q24H 04/27 190 AC 04/27 Nutrition IV 04/28 Total Parenteral 1 UNIT Q24H 04/26 1900 DC 04/26 Nutrition IV 04/27 Impression/Plan Impression/Problem List Impression: Impression and Plan - Patient is arousable, responding to command, c/o pain. He is on fentanyl drip, and levofed. POD-6 Ventilator -D6 right sided PICC line - D3, CONNIE drains-3 - D6 Foleys cathter -D5 Respiratory According to Dr. Arroyo, We'll keep the CVP of 12 and BP > [address] Balderas says keep SAS 2-3. Blood pressure remained below, then we will start patient on low-dose levofed. Currently he is off Levofed. He is on ventilator, Ventilator Settings is -AC, TV-550, IPAP -24, RR-18, PEEP-5 , Fio2 45. wheezing in both lungs ABG showed -PH-7.31,PCo2-33,PO2-87, Infectious Ascitic fluids is growing -enterobacter cloacae and alpha strept. We will follow ID rcms We will continue Meopenem 1g iv 8hrly. Hematology - Hb-9.1, Megaloblastic anemia due to alcohol, added up with septicemia and shock We will suplement MultiVit, Thiamine, folic acid. Cardiology Patient is responding to vasopressor, we will taper according to protocol. His HR-68 BP -102/58 , EKG is NSR Gastroenterology According to the surgeons, we will continue nothing by mouth, NG tube, TPN, weaning trial, obtaining, GI prophylaxis, monitoring CONNIE output. There are 3 CONNIE drains -900 Abdoman is soft, still no bowel sounds on examiantion We will do strict Intake output Charting We will follow GI rcms Patient is undergoing alcohol withdrawl, we will give Ativan according to CIWA protocol. Urology BUN -64 Cr-1.8 Creatinine has been increased. We'll monitor it regularly Urine output in last 24 hrs is 3552cc We will continue IV fluids -150 ml/hrs Strict I/O charting Endocrine TSH -8.9, T4 -1.85 It seems patient is having Sick Euthyroid syndrome. We discussed with endocrinology. We will repeat TFT after patient get recovered. Skin There are multiple dressings on the skin, abdomen for drain, Diet -we started patient on TPN as advised by dietitian. DVT prophylaxis -ALPS/ Heparin CODE STATUS-full code Problem List: 1. MATT (acute kidney injury) 2. Sepsis 3. At risk for ventilator-associated event 4. Ascites 5. Alcoholic hepatitis Pain Ratin (pt is on sedation) Tomorrow's Labs & Rationales: cbc,icu bundle,cxr, ABG Plan DVT/Prophylaxis: mechanical
[2016-04-28 08:00] VITALS: BP 110/60
--- NOTE | 2016-04-28 08:49 | PN- CRCU ---
Subjective HPI/Critical Care Issues: The patient remains intubated and sedated. His Ativan drip has been decreased down to 1 mg. His blood pressure is now stable off pressors. The patient's MAXIMUM TEMPERATURE was 100.2. His oxygenation has improved, noting that he is down to 40%. He continues to drain a significant amount of fluid through his CONNIE drains. The patient has excellent urine output. He is tolerating TPN. He still has very diminished to absent bowel sounds. Objective Current Medications: Current Medications Sig/Roberto Start time Last Medication Dose Route Stop Time Status Admin Albumin Human 25 GM Q8 04/26 1400 AC 04/28 IV 0601 Albuterol Sulfate 3 ML Q4P PRN 04/22 1145 AC 04/22 INH 1134 Fat Emulsion 350 ML Q24H 04/27 1900 AC 04/27 Intravenous IV 04/28 Fat Emulsion 350 ML Q24H 04/26 1900 DC 04/26 Intravenous IV 04/27 Fentanyl Citrate 1,000 MCG Q14H 04/24 1700 AC 04/27 Dextrose/Water 250 ML IV 195 Heparin Sodium 5,000 UNIT Q8 04/24 1400 AC 04/28 (Porcine) SC 0602 Hydromorphone HCl 2 MG Q6P PRN 04/22 0930 AC IV Lorazepam 100 MG Q24H 04/26 1930 AC 04/27 Sodium Chloride 1,000 ML IV 1958 Lorazepam 0 Q1P PRN 04/22 0700 AC 04/23 IV 0547 Meropenem 1 GM IQ8 04/23 1600 AC 04/28 IV 0807 Norepinephrine 4 MG Q24H 04/27 1045 AC 04/27 Sodium Chloride 250 ML IV 1107 Ondansetron HCl 4 MG Q8P PRN 04/22 0600 IV Pantoprazole Sodium 40 MG BID 04/22 2200 AC 04/27 IV 2114 Sodium Chloride 1,000 ML Q8H 04/23 0115 AC 04/28 IV 0230 Total Parenteral 1 UNIT Q24H 04/27 1900 AC 04/27 Nutrition IV 04/28 1859 193 Total Parenteral 1 UNIT Q24H 04/26 1900 DC 04/26 Nutrition IV 04/27 Vital Signs & I&O Last 24 Hrs of Vitals and I&O: Vital Signs Date Time Temp Pulse Resp B/P Pulse O2 O2 Flow FiO2 Ox Delivery Rate 04/28 0627 40 04/28 0400 91 Ventilator 40% 04/28 0329 40 04/28 0039 40 04/28 0000 98.9 76 20 108/50 93 Ventilator 40% 04/28 0000 93 Ventilator 40% 04/27 2218 40 04/27 2000 92 Ventilator 40% 04/27 1902 40 04/27 1623 40 04/27 1600 94 Ventilator 40% 04/27 1600 98.6 70 18 100/38 94 Ventilator 40% 04/27 1335 40 04/27 1200 92 Ventilator 40% 04/27 1124 40 04/27 1107 98.5 65 18 81/33 Intake & Output 04/28 1600 04/28 0800 04/28 0000 Intake Total 2326.0 2363.0 Output Total 1345 1505 Balance 981.0 858.0 Intake, IV 1465 1519 Intake, Lipid 118.0 112.0 Intake, Oral 0 0 Intake, Other 20 Intake, 743 712 TPN/PPN Number 0 Bowel Movements Output, 1025 1075 Drainage Output, 100 150 Gastric Drainage Output, Urine 220 280 Exam General Appearance: intubated, sedated, minimally responsive Head: atraumatic Neck: supple Respiratory: no respiratory distress, bilateral anterior rhonchi, the lungs expand symmetrically and the trachea is midline Cardiovascular: regular rate/rhythm, tachycardia, S1 and S2 heard Abdomen: CONNIE drains in place, distended, surgical dressings in place, bowel sounds difficult to hear Extremities: generalized anasarca Skin: intact, warm/dry Results Last 24 Hrs of Lab Results: Laboratory Tests 04/28/16 0615: pH 7.31 L, pCO2 33 L, pO2 87, HCO3 16 L, ABG O2 Sat (Measured) 96.0, P-50 ( Temp Corrected) N, Carboxyhemoglobin 0 L, O2 Concentration % .40, Respiration Rate 18, O2 Delivery Method VENT, Vent Mode A/C, Expiratory Pressure 5, Tidal Volume 550, Phlebotomy Draw Site RIGHT RADIAL 04/28/16 0410: Anion Gap 9, Estimated GFR 40 L, Glucose 134 H, Calcium 8.3 L, Phosphorus 3.9 , Magnesium 2.3, Total Bilirubin 2.4 H, AST 98 H, ALT 32, Albumin 2.5 L, CBC w Diff MAN DIFF ORDERED, RBC 2.83 L, MCV 97.7 H, MCH 31.9 H, RDW 15.8 H, MPV 9.2, Gran % 68.5, Lymphocytes % 9.4 L, Monocytes % 20.4 H, Eosinophils % 1.4, Basophils % 0.3, Segmented Neutrophils 66, Band Neutrophils 2, Lymphocytes 11 L , Monocytes 15 H, Eosinophils 5, Metamyelocytes 1, Platelet Estimate ADEQUATE, Polychromasia 1+, Hypochromic-Microcytic 1+, Poikilocytosis 1+, Basophilic Stippling 1+, Ovalocytes 1+, PUBS MCHC 32.7 L, Absolute Granulocytes 5.8, Absolute Lymphocytes 0.8 L, Absolute Monocytes 1.7 H, Absolute Eosinophils 0.1 , Absolute Basophils 0, Fld Total RBCs Counted 100 Last 24 Hrs of Micro Results: Ascites fluid positive for Enterobacter and alpha strep. Impression/Plan Impression/Plan Impression/Plan: 1. Perforated viscus with multisystem organ failure and septic shock. 2. Acute kidney injury. 3. Alcoholic hepatitis with transaminitis and coagulopathy. 4. Alcohol withdrawal. 5. Macrocytic anemia in the setting of alcohol use. 6. Hypertension. 7. Diarrhea. 8. Alcohol dependence/abuse, now with evidence of withdrawl. 9. Elevated TSH, consistent with sick thyroid. 10. Ongoing metabolic acidosis. Recommendations: * Discontinue ativan drip. Keep SAS at 2-3. Monitor CIWA scores and for evidence of withdrawal. * Continue IV fluid resuscitation. * Monitor urine output/strict I's and O's. * Continue albumin as per GI. * Continue multivitamin, thiamine and folate. * Continue TPN, hold off on tube feeds until bowel function resumes. Will await surgery input on this issue. * Increase respiratory rate to 24 breaths per minute. * Will begin weaning trials when the patient is more awake and alert. * Continue meropenem as per ID. * Continue ventilator bundle with DVT and GI prophylaxis. * Continue all supportive care. TTS 60
--- NOTE | 2016-04-28 09:39 | RADIOLOGY REPORT ---
EXAMINATION: XR PORTABLE CHEST CLINICAL INFORMATION: Multiple prior chest x-rays most recently 04/27/2016. COMPARISON: None. TECHNIQUE: Portable view of the chest was obtained. FINDINGS: The endotracheal tube is unchanged in position again measuring approximately 3.7 cm above the ching. The enteric tube courses along the esophagus and extends into the left upper quadrant, below the diaphragm. The distal tip is not seen. The right subclavian PICC line is unchanged in position with the tip in the cavoatrial junction. Again noted are multiple EKG leads overlying the chest. The lung expansion has slightly improved. The moderate right pleural effusion appears grossly unchanged. However, the right lateral chest and right costophrenic angle are incompletely imaged. There is stable mild pulmonary edema. There is no pneumothorax or definite focal infiltrate. The osseous structures are grossly unchanged. IMPRESSION: Endotracheal tube stable in position approximately 3.7 cm above the ching. No pneumothorax. Improved pulmonary expansion with suspected stable moderate right pleural effusion. However, limited evaluation of the right lateral chest and costophrenic angle.
--- NOTE | 2016-04-28 11:23 | PN- Infect Dx ---
Subjective Subjective: MAXIMUM TEMPERATURE 100.2. He offers no complaints. He did require pressors yesterday for a drop in his blood pressure, but he is now off pressors. Objective Last 24 Hrs of Vital Signs/I&O Vital Signs Date Time Temp Pulse Resp B/P Pulse O2 O2 Flow FiO2 Ox Delivery Rate 04/28 1048 68 96/43 04/28 0917 40 04/28 08 93 Ventilator 40% 04/28 08 99.8 71 18 110/60 93 Ventilator 40% 04/28 0627 40 04/28 0400 91 Ventilator 40% 04/28 0329 40 04/28 0039 40 04/28 0000 98.9 76 20 108/50 93 Ventilator 40% 04/28 0000 93 Ventilator 40% 04/27 2218 40 04/27 2000 92 Ventilator 40% 04/27 1902 40 04/27 1623 40 04/27 1600 94 Ventilator 40% 04/27 1600 98.6 70 18 100/38 94 Ventilator 40% 04/27 1335 40 04/27 1200 92 Ventilator 40% 04/27 1124 40 Intake & Output 04/28 1600 04/28 0800 04/28 0000 Intake Total 2326.0 2363.0 Output Total 1345 1505 Balance 981.0 858.0 Intake, IV 1465 1519 Intake, Lipid 118.0 112.0 Intake, Oral 0 0 Intake, Other 20 Intake, 743 712 TPN/PPN Number 0 Bowel Movements Output, 1025 1075 Drainage Output, 100 150 Gastric Drainage Output, Urine 220 280 Physical Exam Other Physical Findings: He is arousable, though sedated, on the ventilator Lungs are clear Heart regular rhythm with no murmur Abdomen is distended, with CONNIE drains still in place, draining a large amount of ascitic fluid; no bowel sounds appreciated Extremities trace edema both lower extremities; PICC in the right upper extremity with no inflammation at the site Ann catheter remains in place Results Last 24 Hours of Lab Results: Laboratory Tests 04/28 04/28 0615 0410 Blood Gas pH (7.35 - 7.45 PH) 7.31 L pCO2 (35 - 45 TORR) 33 L pO2 (80 - 100 TORR) 87 HCO3 (21 - 28 MEQ/L) 16 L ABG O2 Sat (Measured) (>96.0 %) 96.0 P-50 (Temp Corrected) N Carboxyhemoglobin (1.5 - 5.0 %) 0 L O2 Concentration % .40 Respiration Rate (BPM) 18 O2 Delivery Method VENT Vent Mode A/C Expiratory Pressure (CMH2O/P) 5 Tidal Volume (CC) 550 Chemistry Sodium (137 - 145 mmol/L) 137 Potassium (3.5 - 5.1 mmol/L) 4.7 Chloride (98 - 107 mmol/L) 106 Carbon Dioxide (22 - 30 mmol/L) 22 Anion Gap (5 - 16) 9 BUN (9 - 20 mg/dL) 64 H Creatinine (0.7 - 1.2 mg/dL) 1.8 H Estimated GFR (>60 ml/min) 40 L Glucose (65 - 99 mg/dL) 134 H Calcium (8.4 - 10.2 mg/dL) 8.3 L Phosphorus (2.5 - 4.5 mg/dL) 3.9 Magnesium (1.6 - 2.3 mg/dL) 2.3 Total Bilirubin (0.2 - 1.3 mg/dL) 2.4 H AST (17 - 59 U/L) 98 H ALT (21 - 72 U/L) 32 Albumin (3.5 - 5.0 g/dL) 2.5 L Hematology CBC w Diff MAN DIFF ORDERED WBC (4.8 - 10.8 /CUMM) 8.4 RBC (4.70 - 6.10 /CUMM) 2.83 L Hgb (14.0 - 18.0 G/DL) 9.1 L Hct (42 - 52 %) 27.7 L MCV (80.0 - 94.0 FL) 97.7 H MCH (27.0 - 31.0 PG) 31.9 H RDW (11.5 - 14.5 %) 15.8 H Plt Count (130 - 400 /CUMM) 143 MPV (7.4 - 10.4 FL) 9.2 Gran % (42.2 - 75.2 %) 68.5 Lymphocytes % (20.5 - 51.1 %) 9.4 L Monocytes % (1.7 - 9.3 %) 20.4 H Eosinophils % (0 - 5 %) 1.4 Basophils % (0.0 - 2.0 %) 0.3 Segmented Neutrophils (42.2 - 75.2 %) 66 Band Neutrophils (0.0 - 5.0 %) 2 Lymphocytes (20.5 - 51.1 %) 11 L Monocytes (1.7 - 9.3 %) 15 H Eosinophils (0 - 5.0 %) 5 Metamyelocytes (0.0 - 1.0 %) 1 Platelet Estimate (ADEQUATE) ADEQUATE Polychromasia 1+ Hypochromic-Microcytic 1+ Poikilocytosis 1+ Basophilic Stippling 1+ Ovalocytes 1+ PUBS MCHC (33.0 - 37.0 G/DL) 32.7 L Immunology Absolute Granulocytes (1.4 - 6.5 /CUMM) 5.8 Absolute Lymphocytes (1.2 - 3.4 /CUMM) 0.8 L Absolute Monocytes (0.10 - 0.60 /CUMM) 1.7 H Absolute Eosinophils (0.0 - 0.7 /CUMM) 0.1 Absolute Basophils (0.0 - 0.2 /CUMM) 0 Miscellaneous Phlebotomy Draw Site RIGHT RADIAL Other Body Source Fld Total RBCs Counted (%) 100 Last 24 Hours of Garcia Results: No recent cultures Recent Imaging Studies: Chest x-ray April 28, personally reviewed, reveals improved pulmonary expansion with a stable moderate right pleural effusion Assessment/Plan Impression: Overall improved, though remains critically ill with a transient drop in his blood pressure yesterday, persistent ventilator dependence and intermittent low- grade fevers on Meropenem for polymicrobial peritonitis now 6 days status post laparoscopic Clint plication of a perforated duodenal ulcer. His renal function appears to have stabilized. The right pleural effusion likely represents fluid overload, with empyema unlikely, but, if he fails to wean, a therapeutic thoracentesis may need to be considered. His low-grade fevers are of unclear etiology and, if they persist, reevaluation of his abdomen, to rule out any residual infection, may be necessary. Suggestion: 1. Further management of his right pleural effusion per Pulmonary 2. Will need to consider CT of the abdomen and pelvis if his fevers persist 3. Continue Meropenem
--- NOTE | 2016-04-28 12:18 | PN- Nephrology ---
Assessment/Plan Assessment: 1. MATT secondary to sepsis/hypotension - stabilized 2. Status post laparotomy with plication of a perforated duodenal ulcer 3. History of alcohol abuse with "fatty liver" Suggestion: 1. Continue IV normal saline at 125 mL per hour 2. Continue to monitor intake and output, chemistries daily including renal function, electrolytes and LFTs 3. Antibiotic therapy per ID 4. Surgery following Subjective Subjective: Patient remains intubated and vented. Sedation has now been discontinued and he is off pressors. Serum creatinine slightly improved as his urine output is increasing. Liver function studies also appear to be slowly improving. Objective Vital Signs and I&Os Vital Signs Date Time Temp Pulse Resp B/P Pulse O2 O2 Flow FiO2 Ox Delivery Rate 04/28 1048 68 96/43 04/28 0917 40 04/28 0800 93 Ventilator 40% 04/28 0800 99.8 71 18 110/60 93 Ventilator 40% 04/28 0627 40 04/28 0400 91 Ventilator 40% 04/28 0329 40 04/28 0039 40 04/28 0000 98.9 76 20 108/50 93 Ventilator 40% 04/28 0000 93 Ventilator 40% 04/27 2218 40 04/27 2000 92 Ventilator 40% 04/27 1902 40 04/27 1623 40 04/27 1600 94 Ventilator 40% 04/27 1600 98.6 70 18 100/38 94 Ventilator 40% 04/27 1335 40 Intake & Output 04/28 1600 04/28 0400 04/27 1600 04/27 0400 04/26 1600 04/26 0400 Intake Total 2326.0 2363.0 4465.0 2725.0 3945.0 1748 Output Total 1345 1505 2225 1145 2312 1350 Balance 981.0 858.0 2240.0 1580.0 1633.0 398 Intake, IV 1465 1519 3611 1877 3130 1748 Intake, Lipid 118.0 112.0 111.0 116.0 112.0 Intake, Oral 0 0 0 0 0 Intake, Other 20 40 Intake, 743 712 703 732 703 TPN/PPN Number 0 0 0 0 Bowel Movements Output, 1025 1075 5931 371 9689 1100 Drainage Output, 100 150 350 150 200 100 Gastric Drainage Output, Urine 220 280 440 195 267 150 Physical Exam: General: Well-developed, obese, intubated, vented white male in NAD Skin: No rash or jaundice HEENT: Conjunctivae pale, sclerae anicteric, intubated Neck: Without masses, no supraclavicular or cervical adenopathy Chest: Clear anterolaterally Heart: Regular rate and rhythm without S3 or rub Abdomen: Soft, dressings intact, multiple drains with significant serous output Extremities: Without cyanosis or edema; toes well perfused Neuro: Arousable but does not follow commands, no focal findings, no asterixis or myoclonus Results Pertinent Lab Results: Laboratory Tests 04/28 04/28 0615 0410 Blood Gas pH (7.35 - 7.45 PH) 7.31 L pCO2 (35 - 45 TORR) 33 L pO2 (80 - 100 TORR) 87 HCO3 (21 - 28 MEQ/L) 16 L ABG O2 Sat (Measured) (>96.0 %) 96.0 P-50 (Temp Corrected) N Carboxyhemoglobin (1.5 - 5.0 %) 0 L O2 Concentration % .40 Respiration Rate (BPM) 18 O2 Delivery Method VENT Vent Mode A/C Expiratory Pressure (CMH2O/P) 5 Tidal Volume (CC) 550 Chemistry Sodium (137 - 145 mmol/L) 137 Potassium (3.5 - 5.1 mmol/L) 4.7 Chloride (98 - 107 mmol/L) 106 Carbon Dioxide (22 - 30 mmol/L) 22 Anion Gap (5 - 16) 9 BUN (9 - 20 mg/dL) 64 H Creatinine (0.7 - 1.2 mg/dL) 1.8 H Estimated GFR (>60 ml/min) 40 L Glucose (65 - 99 mg/dL) 134 H Calcium (8.4 - 10.2 mg/dL) 8.3 L Phosphorus (2.5 - 4.5 mg/dL) 3.9 Magnesium (1.6 - 2.3 mg/dL) 2.3 Total Bilirubin (0.2 - 1.3 mg/dL) 2.4 H AST (17 - 59 U/L) 98 H ALT (21 - 72 U/L) 32 Albumin (3.5 - 5.0 g/dL) 2.5 L Hematology CBC w Diff MAN DIFF ORDERED WBC (4.8 - 10.8 /CUMM) 8.4 RBC (4.70 - 6.10 /CUMM) 2.83 L Hgb (14.0 - 18.0 G/DL) 9.1 L Hct (42 - 52 %) 27.7 L MCV (80.0 - 94.0 FL) 97.7 H MCH (27.0 - 31.0 PG) 31.9 H RDW (11.5 - 14.5 %) 15.8 H Plt Count (130 - 400 /CUMM) 143 MPV (7.4 - 10.4 FL) 9.2 Gran % (42.2 - 75.2 %) 68.5 Lymphocytes % (20.5 - 51.1 %) 9.4 L Monocytes % (1.7 - 9.3 %) 20.4 H Eosinophils % (0 - 5 %) 1.4 Basophils % (0.0 - 2.0 %) 0.3 Segmented Neutrophils (42.2 - 75.2 %) 66 Band Neutrophils (0.0 - 5.0 %) 2 Lymphocytes (20.5 - 51.1 %) 11 L Monocytes (1.7 - 9.3 %) 15 H Eosinophils (0 - 5.0 %) 5 Metamyelocytes (0.0 - 1.0 %) 1 Platelet Estimate (ADEQUATE) ADEQUATE Polychromasia 1+ Hypochromic-Microcytic 1+ Poikilocytosis 1+ Basophilic Stippling 1+ Ovalocytes 1+ PUBS MCHC (33.0 - 37.0 G/DL) 32.7 L Immunology Absolute Granulocytes (1.4 - 6.5 /CUMM) 5.8 Absolute Lymphocytes (1.2 - 3.4 /CUMM) 0.8 L Absolute Monocytes (0.10 - 0.60 /CUMM) 1.7 H Absolute Eosinophils (0.0 - 0.7 /CUMM) 0.1 Absolute Basophils (0.0 - 0.2 /CUMM) 0 Miscellaneous Phlebotomy Draw Site RIGHT RADIAL Other Body Source Fld Total RBCs Counted (%) 100 04/27 04/26 04/26 0433 1845 1800 Blood Gas pH (7.35 - 7.45 PH) 7.35 pCO2 (35 - 45 TORR) 38 pO2 (80 - 100 TORR) 86 HCO3 (21 - 28 MEQ/L) 20 L ABG O2 Sat (Measured) (>96.0 %) 94.0 L P-50 (Temp Corrected) N Carboxyhemoglobin (1.5 - 5.0 %) 0.3 L O2 Concentration % 40% Temperature (97.0 - 100.0 FARH) 99.1 Respiration Rate (BPM) 18 O2 Delivery Method ESPRIT Vent Mode AC Expiratory Pressure (CMH2O/P) 5 Tidal Volume (CC) 550 Chemistry Sodium (137 - 145 mmol/L) 136 L Potassium (3.5 - 5.1 mmol/L) 4.5 Chloride (98 - 107 mmol/L) 105 Carbon Dioxide (22 - 30 mmol/L) 22 Anion Gap (5 - 16) 9 BUN (9 - 20 mg/dL) 54 H Creatinine (0.7 - 1.2 mg/dL) 2.0 H Estimated GFR (>60 ml/min) 36 L Glucose (65 - 99 mg/dL) 126 H Calcium (8.4 - 10.2 mg/dL) 8.1 L Phosphorus (2.5 - 4.5 mg/dL) 3.8 Magnesium (1.6 - 2.3 mg/dL) 2.2 Total Bilirubin (0.2 - 1.3 mg/dL) 2.7 H AST (17 - 59 U/L) 105 H ALT (21 - 72 U/L) 34 Albumin (3.5 - 5.0 g/dL) 2.5 L Hematology CBC w Diff NO MAN DIFF REQ WBC (4.8 - 10.8 /CUMM) 8.7 RBC (4.70 - 6.10 /CUMM) 2.90 L Hgb (14.0 - 18.0 G/DL) 9.3 L Hct (42 - 52 %) 28.8 L MCV (80.0 - 94.0 FL) 99.1 H MCH (27.0 - 31.0 PG) 32.2 H RDW (11.5 - 14.5 %) 16.0 H Plt Count (130 - 400 /CUMM) 132 MPV (7.4 - 10.4 FL) 8.8 Gran % (42.2 - 75.2 %) 72.8 Lymphocytes % (20.5 - 51.1 %) 7.4 L Monocytes % (1.7 - 9.3 %) 18.0 H Eosinophils % (0 - 5 %) 1.5 Basophils % (0.0 - 2.0 %) 0.3 PUBS MCHC (33.0 - 37.0 G/DL) 32.5 L Immunology Absolute Granulocytes (1.4 - 6.5 /CUMM) 6.3 Absolute Lymphocytes (1.2 - 3.4 /CUMM) 0.6 L Absolute Monocytes (0.10 - 0.60 /CUMM) 1.6 H Absolute Eosinophils (0.0 - 0.7 /CUMM) 0.1 Absolute Basophils (0.0 - 0.2 /CUMM) 0 Miscellaneous Phlebotomy Draw Site DOUGLAS Toxicology Random Vancomycin (ug/ml) < 5.0 Urines Ur Creatinine 24 Hour Cancelled 04/26 04/26 1800 0420 Chemistry Sodium (137 - 145 mmol/L) 134 L 134 L Potassium (3.5 - 5.1 mmol/L) 4.1 4.1 Chloride (98 - 107 mmol/L) 103 104 Carbon Dioxide (22 - 30 mmol/L) 23 24 Anion Gap (5 - 16) 8 7 BUN (9 - 20 mg/dL) 48 H 42 H Creatinine (0.7 - 1.2 mg/dL) 2.0 H 1.8 H Estimated GFR (>60 ml/min) 36 L 40 L BUN/Creatinine Ratio (7 - 25 %) 24.0 Glucose (65 - 99 mg/dL) 122 H Calcium (8.4 - 10.2 mg/dL) 8.1 L Phosphorus (2.5 - 4.5 mg/dL) 3.2 Magnesium (1.6 - 2.3 mg/dL) 2.1 Total Bilirubin (0.2 - 1.3 mg/dL) 2.9 H AST (17 - 59 U/L) 86 H ALT (21 - 72 U/L) 44 Albumin (3.5 - 5.0 g/dL) 2.5 L Triglycerides (<150 mg/dL) 150 Hematology CBC w Diff NO MAN DIFF REQ WBC (4.8 - 10.8 /CUMM) 7.6 RBC (4.70 - 6.10 /CUMM) 2.78 L Hgb (14.0 - 18.0 G/DL) 8.8 L Hct (42 - 52 %) 27.6 L MCV (80.0 - 94.0 FL) 99.1 H MCH (27.0 - 31.0 PG) 31.6 H RDW (11.5 - 14.5 %) 16.2 H Plt Count (130 - 400 /CUMM) 118 L MPV (7.4 - 10.4 FL) 8.5 Gran % (42.2 - 75.2 %) 72.8 Lymphocytes % (20.5 - 51.1 %) 7.7 L Monocytes % (1.7 - 9.3 %) 17.5 H Eosinophils % (0 - 5 %) 1.5 Basophils % (0.0 - 2.0 %) 0.5 PUBS MCHC (33.0 - 37.0 G/DL) 31.9 L Immunology Absolute Granulocytes (1.4 - 6.5 /CUMM) 5.5 Absolute Lymphocytes (1.2 - 3.4 /CUMM) 0.6 L Absolute Monocytes (0.10 - 0.60 /CUMM) 1.3 H Absolute Eosinophils (0.0 - 0.7 /CUMM) 0.1 Absolute Basophils (0.0 - 0.2 /CUMM) 0 Urines Ur Creatinine 24 Hour (mg/dL) 325.2 Ur Sodium 24 Hour (30 - 90 mmol/L) < 5 L Fraction Sodium Excret (<1% %) Ur Potassium 24 Hour (mmol/L) 72.4
[2016-04-28 16:00] VITALS: BP 99/45
[2016-04-29] VITALS: BP 110/62
[2016-04-29 03:55] LABS: ABSOLUTE BASOPHIL COUNT 0.1 /CUMM (0.0-0.2); ABSOLUTE EOSINOPHIL COUNT 0.1 /CUMM (0.0-0.7); ABSOLUTE GRANULOCYTE CT 5.2 /CUMM (1.4-6.5); ABSOLUTE LYMPH COUNT 0.6 /CUMM (1.2-3.4); ABSOLUTE MONOCYTE COUNT 1.4 /CUMM (0.10-0.60); BASOPHIL % 0.9 % (0.0-2.0); EOSINOPHIL % 1.5 % (0-5); GRANULOCYTE % 69.8 % (42.2-75.2); MEAN CORPUSCULAR HGB 32.2 PG (27.0-31.0); MEAN CORPUSCULAR VOLUME 97.5 FL (80.0-94.0); MEAN PLATELET VOLUME 8.7 FL (7.4-10.4); PLATELET COUNT 153 /CUMM (130-400); RED BLOOD CELL CT 2.87 /CUMM (4.70-6.10); WHITE BLOOD CELL COUNT 7.4 /CUMM (4.8-10.8)
[2016-04-29 08:00] VITALS: BP 110/62
--- NOTE | 2016-04-29 08:07 | RADIOLOGY REPORT ---
EXAMINATION: XR PORTABLE CHEST CLINICAL INFORMATION: Intubated follow-up. COMPARISON: Multiple priors most recent 04/28/2016. TECHNIQUE: Portable view of the chest labeled 30 degrees upright. FINDINGS: Endotracheal tube is unchanged in position with its tip approximately 5 cm proximal to the ching. Enteric tube is also again noted overlying the proximal to mid esophagus, further distally the tube is not visualized. Right-sided subclavian PICC line is again noted with its tip at the caval atrial junction unchanged in position. Heart remains enlarged. Lung volumes are diminished. Right-sided opacity likely a combination of effusion and atelectasis appears largely unchanged. No definite infiltrate identified. IMPRESSION: Stable appearing chest x-ray.
--- NOTE | 2016-04-29 08:43 | PN- CRCU ---
Subjective HPI/Critical Care Issues: The patient is more awake this morning but not tracking well or following commands. He remains off Ativan. His MAXIMUM TEMPERATURE over the past 24 hours was 100 and 100.2. The patient's blood pressure is slightly improved, noting he remains off pressors. The patient's oxygen requirement remained stable. There is a right-sided opacity and effusion/atelectasis. He remains on TPN and lipids for nutrition. He also remains on 150 ML of normal saline per hour. Objective Current Medications: Current Medications Sig/Roberto Start time Last Medication Dose Route Stop Time Status Admin Albumin Human 25 GM Q8 04/26 1400 AC 04/29 IV 0645 Albuterol Sulfate 3 ML Q4P PRN 04/22 1145 AC 04/22 INH 1134 Fat Emulsion 350 ML Q24H 04/28 1900 AC 04/28 Intravenous IV 04/29 Fat Emulsion 350 ML Q24H 04/27 1900 DC 04/27 Intravenous IV 04/28 1859 193 Fentanyl Citrate 1,000 MCG Q14H 04/24 1700 AC 04/27 Dextrose/Water 250 ML IV 1958 Heparin Sodium 5,000 UNIT Q8 04/24 1400 AC 04/29 (Porcine) SC 0646 Hydromorphone HCl 2 MG Q6P PRN 04/22 0930 AC IV Lorazepam 100 MG Q24H 04/26 1930 DC 04/27 Sodium Chloride 1,000 ML IV 1958 Lorazepam 0 Q1P PRN 04/22 0700 DC 04/23 IV 0547 Meropenem 1 GM IQ8 04/23 1600 AC 04/29 IV 0806 Norepinephrine 4 MG Q24H 04/27 1045 AC 04/27 Sodium Chloride 250 ML IV 1107 Ondansetron HCl 4 MG Q8P PRN 04/22 0600 IV Pantoprazole Sodium 40 MG BID 04/22 2200 AC 04/28 IV 2156 Sodium Chloride 1,000 ML Q8H 04/23 0115 AC 04/29 IV 0647 Total Parenteral 1 UNIT Q24H 04/28 1900 AC 04/28 Nutrition IV 04/29 Total Parenteral 1 UNIT Q24H 04/27 1900 DC 04/27 Nutrition IV 04/28 Vital Signs & I&O Last 24 Hrs of Vitals and I&O: Vital Signs Date Time Temp Pulse Resp B/P Pulse O2 O2 Flow FiO2 Ox Delivery Rate 04/29 08 82 110/52 04/29 0542 40 04/29 0359 40 04/29 0334 92 Ventilator 40% 04/29 0107 40 04/29 0000 93 Ventilator 40% 04/29 0000 100.0 74 24 110/62 93 Ventilator 40% 04/28 2202 40 04/28 2000 92 Ventilator 40% 04/28 1927 40 04/28 1624 40 04/28 1600 92 Ventilator 40% 04/28 1600 98.1 70 23 99/45 92 Ventilator 40% 04/28 1438 40 04/28 1247 40 04/28 1200 96 Ventilator 40% 04/28 1048 68 96/43 04/28 0917 40 Intake & Output 04/29 1600 04/29 0800 04/29 0000 Intake Total 2150.4 Output Total 1010 Balance 1140.4 Intake, IV 2150.4 Output, 675 Drainage Output, Urine 335 Exam General Appearance: intubated, opens eyes but not following commands Head: atraumatic Neck: supple Respiratory: no respiratory distress, bilateral anterior rhonchi, the lungs expand symmetrically and the trachea is midline Cardiovascular: regular rate/rhythm, tachycardia, S1 and S2 heard Abdomen: CONNIE drains in place, distended, surgical dressings in place, slight increase in bowel sounds Extremities: warm and dry Skin: no cyanosis or edema Results Last 24 Hrs of Lab Results: Laboratory Tests 04/29/16 0505: pH 7.41, pCO2 29 L, pO2 88, HCO3 18 L, ABG O2 Sat (Measured) 95.0 L, P-50 ( Temp Corrected) Y, Carboxyhemoglobin 0.3 L, O2 Concentration % 40%, Temperature 100.2 H, Respiration Rate 24, O2 Delivery Method ESPRIT, Vent Mode AC, Expiratory Pressure 5, Tidal Volume 550, Phlebotomy Draw Site LEFT RADIAL 04/29/16 0342: Anion Gap 9, Estimated GFR 59 L, Glucose 138 H, Calcium 8.7, Phosphorus 3.5, Magnesium 2.3, Total Bilirubin 2.2 H, Direct Bilirubin Pending, AST 80 H, ALT 31, Albumin 2.6 L, CBC w Diff NO MAN DIFF REQ, RBC 2.87 L, MCV 97.5 H, MCH 32.2 H, RDW 16.0 H, MPV 8.7, Gran % 69.8, Lymphocytes % 8.4 L, Monocytes % 19.4 H, Eosinophils % 1.5, Basophils % 0.9, PUBS MCHC 33.0, Absolute Granulocytes 5.2, Absolute Lymphocytes 0.6 L, Absolute Monocytes 1.4 H, Absolute Eosinophils 0.1, Absolute Basophils 0.1 Diagnostic Data CXR Findings: Endotracheal tube is unchanged in position with its tip approximately 5 cm proximal to the ching. Enteric tube is also again noted overlying the proximal to mid esophagus, further distally the tube is not visualized. Right-sided subclavian PICC line is again noted with its tip at the caval atrial junction unchanged in position. Heart remains enlarged. Lung volumes are diminished. Right-sided opacity likely a combination of effusion and atelectasis appears largely unchanged. No definite infiltrate identified. IMPRESSION: Stable appearing chest x-ray. Impression/Plan Impression/Plan Impression/Plan: 1. Perforated viscus with multisystem organ failure and septic shock, post op day 7 perforated duodenal ulcer repair. The patient still has persistent low- grade fevers and we will pursue imaging as recommended by ID. 2. Acute kidney injury - Cr improved however BUN increasing. 3. Alcoholic hepatitis with transaminitis and coagulopathy. 4. Alcohol withdrawal. 5. Macrocytic anemia in the setting of alcohol use. 6. Hypertension. 7. Diarrhea. 8. Alcohol dependence/abuse, ETOH withdrawl. 9. Encephalopathy - hepatic? metabolic? 10. Deep tissue injury - right scapula area. Recommendations: * Monitor CIWA scores and for evidence of withdrawal. * Check a ammonia level now. * Continue meropenem as per ID. * Check a non-contrast CT of the chest, abdomen and pelvis. * Continue IV fluid resuscitation per renal. * Monitor urine output/strict I's and O's. * Need to continue albumin? Discuss with surgery. * Contine multivitamin, thiamine and folate. * Continue TPN, hold off on tube feeds until bowel function improves. * Continue current vent settings. * Will begin weaning trials when the patient is more awake and alert. * Continue ventilator bundle with DVT and GI prophylaxis. * Skin care protocol, off load deep tissue injury area. * Continue all supportive care. * Patient's family updated at bedside. TTS 66
--- NOTE | 2016-04-29 10:29 | PN- Infect Dx ---
Subjective Subjective: MAXIMUM TEMPERATURE 100.2. He is unable to provide any history or offer any complaints Objective Last 24 Hrs of Vital Signs/I&O Vital Signs Date Time Temp Pulse Resp B/P Pulse O2 O2 Flow FiO2 Ox Delivery Rate 04/29 806 82 110/52 04/29 08 95 Ventilator 40% 04/29 800 99.8 86 24 110/62 95 Ventilator 40% 04/29 0542 40 04/29 0359 40 04/29 0334 92 Ventilator 40% 04/29 0107 40 04/29 0000 93 Ventilator 40% 04/29 0000 100.0 74 24 110/62 93 Ventilator 40% 04/28 2202 40 04/28 2000 92 Ventilator 40% 04/28 1927 40 04/28 1624 40 04/28 1600 92 Ventilator 40% 04/28 1600 98.1 70 23 99/45 92 Ventilator 40% 04/28 1438 40 04/28 1247 40 04/28 1200 96 Ventilator 40% 04/28 1048 68 96/43 Intake & Output 04/29 1600 04/29 0804/29 0000 Intake Total 1832.0 2150.4 Output Total 1220 1010 Balance 612.0 1140.4 Intake, IV 1072 2150.4 Intake, Lipid 104.0 Intake, Oral 0 Intake, 656 TPN/PPN Output, 720 675 Drainage Output, 50 Gastric Drainage Output, Urine 450 335 Physical Exam Other Physical Findings: He is arousable but not alert on the ventilator with no evidence of appropriate response to commands Lungs scattered rhonchi bilaterally Heart regular rhythm with no murmur Abdomen is distended, CONNIE drains remain in place, with a large amount of serous fluid, questionable bowel sounds Extremities trace edema both lower extremities; PICC in the right upper extremity with no inflammation at the site Ann catheter remains in place Results Last 24 Hours of Lab Results: Laboratory Tests 04/29 04/29 04/29 0821 0505 0342 Blood Gas pH (7.35 - 7.45 PH) 7.41 pCO2 (35 - 45 TORR) 29 L pO2 (80 - 100 TORR) 88 HCO3 (21 - 28 MEQ/L) 18 L ABG O2 Sat (Measured) (>96.0 %) 95.0 L P-50 (Temp Corrected) Y Carboxyhemoglobin (1.5 - 5.0 %) 0.3 L O2 Concentration % 40% Temperature (97.0 - 100.0 FARH) 100.2 H Respiration Rate (BPM) 24 O2 Delivery Method ESPRIT Vent Mode AC Expiratory Pressure (CMH2O/P) 5 Tidal Volume (CC) 550 Chemistry Sodium (137 - 145 mmol/L) 138 Potassium (3.5 - 5.1 mmol/L) 4.4 Chloride (98 - 107 mmol/L) 109 H Carbon Dioxide (22 - 30 mmol/L) 20 L Anion Gap (5 - 16) 9 BUN (9 - 20 mg/dL) 68 H Creatinine (0.7 - 1.2 mg/dL) 1.3 H Estimated GFR (>60 ml/min) 59 L Glucose (65 - 99 mg/dL) 138 H Calcium (8.4 - 10.2 mg/dL) 8.7 Phosphorus (2.5 - 4.5 mg/dL) 3.5 Magnesium (1.6 - 2.3 mg/dL) 2.3 Total Bilirubin (0.2 - 1.3 mg/dL) 2.2 H Direct Bilirubin (< 0.4 mg/dL) 1.4 H AST (17 - 59 U/L) 80 H ALT (21 - 72 U/L) 31 Ammonia (9 - 30 umol/L) 45 H Albumin (3.5 - 5.0 g/dL) 2.6 L Hematology CBC w Diff NO MAN DIFF REQ WBC (4.8 - 10.8 /CUMM) 7.4 RBC (4.70 - 6.10 /CUMM) 2.87 L Hgb (14.0 - 18.0 G/DL) 9.2 L Hct (42 - 52 %) 28.0 L MCV (80.0 - 94.0 FL) 97.5 H MCH (27.0 - 31.0 PG) 32.2 H RDW (11.5 - 14.5 %) 16.0 H Plt Count (130 - 400 /CUMM) 153 MPV (7.4 - 10.4 FL) 8.7 Gran % (42.2 - 75.2 %) 69.8 Lymphocytes % (20.5 - 51.1 %) 8.4 L Monocytes % (1.7 - 9.3 %) 19.4 H Eosinophils % (0 - 5 %) 1.5 Basophils % (0.0 - 2.0 %) 0.9 PUBS MCHC (33.0 - 37.0 G/DL) 33.0 Immunology Absolute Granulocytes (1.4 - 6.5 /CUMM) 5.2 Absolute Lymphocytes (1.2 - 3.4 /CUMM) 0.6 L Absolute Monocytes (0.10 - 0.60 /CUMM) 1.4 H Absolute Eosinophils (0.0 - 0.7 /CUMM) 0.1 Absolute Basophils (0.0 - 0.2 /CUMM) 0.1 Miscellaneous Phlebotomy Draw Site LEFT RADIAL Last 24 Hours of Garcia Results: No recent cultures Recent Imaging Studies: Chest x-ray April 29, personally reviewed, reveals right-sided opacity unchanged Assessment/Plan Impression: Overall stable, with blood pressure maintained off pressors, though remains ventilator dependent, with intermittent low-grade fevers and with encephalopathy , possibly secondary to medications, with subclinical seizures possible but less likely. He remains on Meropenem for polymicrobial peritonitis now 1 week status post laparoscopic Clint plication of a perforated duodenal ulcer, and, with low -grade fevers, a residual abscess must be considered. The right pleural effusion likely represents fluid overload, with empyema unlikely, but a thoracentesis may be indicated, both for diagnostic and therapeutic purposes, particularly if he remains unweanable. Suggestion: 1. Await CT of the chest, abdomen and pelvis, scheduled for today 2. Consider right thoracentesis based on above findings 3. Continue Meropenem pending above
--- NOTE | 2016-04-29 11:45 | CT SCAN REPORT ---
EXAMINATION: CT CHEST, ABDOMEN AND PELVIS WITH CONTRAST CLINICAL INFORMATION: Fever. On ventilator. Right-sided pleural effusion. Evaluate for intra-abdominal abscess. COMPARISON: Chest x-ray dated 04/29/2016. CT scan of the abdomen and pelvis dated 04/22/2016 and 01/25/2014. TECHNIQUE: Multidetector CT helical images of the chest, abdomen and pelvis were performed noncontrast. The data set was reformatted in the coronal and sagittal planes and reviewed on an independent workstation. DLP: 2051.73 mGy-cm. FINDINGS: CHEST: LUNGS: Small small left and moderate size right-sided pleural effusion is seen layering posteriorly up to the right lung apex. Associated complete collapse and consolidation of the right lower lobe is seen with multiple air bronchograms. There is partial consolidation with air bronchograms seen in the dependent portions of the left lower lobe and in the lateral segment of the right middle lobe and in the dependent portions of the right upper lobe and lingula. The central airways are diffusely narrowed but still patent. An endotracheal tube is in place with tip at the level of the aortic arch, approximately 3 cm from the ching. No pneumothorax is present. LYMPHOVASCULAR STRUCTURES: Right subclavian PICC line is in place with tip at the cavoatrial junction. Aortic and heart size are normal. Mild atherosclerotic calcifications of the aorta and branch vessels, including the coronary arteries. No pericardial effusion is seen. No significant mediastinal, hilar or axillary adenopathy is present. BONES: No suspicious focal finding. ABDOMEN AND PELVIS: Evaluation of the upper abdomen is significantly limited due to beam hardening artifact related to the patient's arms. LIVER, GALLBLADDER, BILIARY TREE: Liver again found to be enlarged, measuring 29.5 cm longitudinally, similar to the prior exam. No focal cystic or solid mass or intra-or extrahepatic ductal dilatation seen on this limited assessment. Hepatic and portal veins patent. The gallbladder partially distended and unremarkable with no definite calcified gallstones, gallbladder wall thickening or pericholecystic fluid seen. A drain is seen in the gallbladder fossa. PANCREAS: No definite ductal dilatation or mass appreciated on limited exam. SPLEEN: Spleen is enlarged, measuring 17 cm longitudinally, similar to the prior exam. ADRENAL GLANDS AND KIDNEYS: Adrenal glands normal. Kidneys bilaterally symmetric in size and lobulated in contour. No definite focal mass, hydronephrosis, or nephrolithiasis on this limited exam. URETERS AND BLADDER: Ureters decompressed and within normal limits. Bladder decompressed by a Ann catheter and not adequately assessed. PELVIC VISCERA: The patient may be status post prostatectomy or the prostate gland may be atrophic. BOWEL LOOPS: Moderate sigmoid colonic diverticulosis and descending colonic diverticulosis is seen without evidence of acute diverticulitis. Terminal ileum and small bowel loops are decompressed and grossly unremarkable. Enteric tube is seen within the gastric body. Small amount of ascites remains in the abdomen. A right upper quadrant/perihepatic catheter is seen in place and the previously noted perihepatic fluid has nearly completely resolved with only a trace amount of ascites remaining around the liver, spleen and extending into the lower pelvis. No evidence of bowel obstruction or perforation. LYMPHOVASCULAR STRUCTURES: Abdominal aorta normal in caliber with mild atherosclerotic calcification seen. Of note, there is a left-sided IVC, which crosses to the right side at the level of the renal sundeep. No periaortic collections. No abdominal or pelvic adenopathy or free fluid collection. BONES: Total left hip arthroplasty is in place. Bony structures are grossly unremarkable. IMPRESSION: 1. Moderate right-sided and small left-sided freely layering pleural effusions are seen without obvious complexity visualized on noncontrast study. 2. Complete collapse and consolidation of the right lower lobe and lesser degrees of consolidation and volume loss in the other lobes as above. 3. Limited evaluation of the abdomen and pelvis, no focal acute process is seen. Previously noted intra-abdominal ascites has significantly decreased status post drain placement in the right upper quadrant. 3. Hepatosplenomegaly is noted. 4. Moderate sigmoid and descending colonic diverticulosis with no evidence of acute diverticulitis.
[2016-04-29 12:00] VITALS: BP 99/41
--- NOTE | 2016-04-29 12:08 | PN- Nephrology ---
Assessment/Plan Assessment: 1. MATT secondary to sepsis/hypotension -improving 2. Status post laparotomy with plication of a perforated duodenal ulcer; persistent fevers 3. Pleural effusions 4. History of alcohol abuse with "fatty liver" - LFTs improving Suggestion: 1. Continue isotonic IV fluids for now - suggest 125-150ml/hr 2. Continue to monitor intake and output, chemistries daily including renal function, electrolytes and LFTs 3. Antibiotic therapy per ID 4. Surgery following Subjective Subjective: Remains intubated, vented, minimally responsive, off pressors, not sedated. Intermittent low-grade fevers persist. Urine output 850 mL yesterday. Creatinine falling, BUN up; electrolytes, calcium/phosphorus ok; LFTs improving. Objective Vital Signs and I&Os Vital Signs Date Time Temp Pulse Resp B/P Pulse O2 O2 Flow FiO2 Ox Delivery Rate 04/29 0806 82 110/52 04/29 0805 40 04/29 0800 99.8 86 24 110/62 04/29 0800 95 Ventilator 40% 04/29 0800 99.8 86 24 110/62 95 Ventilator 40% 04/29 0542 40 04/29 0359 40 04/29 0334 92 Ventilator 40% 04/29 0107 40 04/29 0000 93 Ventilator 40% 04/29 0000 100.0 74 24 110/62 93 Ventilator 40% 04/28 2202 40 04/28 2000 92 Ventilator 40% 04/28 1927 40 04/28 1624 40 04/28 1600 92 Ventilator 40% 04/28 1600 98.1 70 23 99/45 92 Ventilator 40% 04/28 1438 40 04/28 1247 40 Intake & Output 04/29 1600 04/29 0400 04/28 1600 04/28 0400 04/27 1600 04/27 0400 Intake Total 1832.0 2150.4 4409.0 2363.0 4465.0 2725.0 Output Total 1220 1010 2470 1505 2225 1145 Balance 612.0 1140.4 1939.0 858.0 2240.0 1580.0 Intake, IV 1072 2150.4 2675 1519 3611 1877 Intake, Lipid 104.0 258.0 112.0 111.0 116.0 Intake, Oral 0 0 0 0 Intake, Other 20 40 Intake, 656 1476 712 703 732 TPN/PPN Number 0 0 0 0 Bowel Movements Output, 361 839 3196 1075 1435 800 Drainage Output, 50 100 150 350 150 Gastric Drainage Output, Urine 450 335 520 280 440 195 Physical Exam: General: Well-developed, obese, intubated, vented white male in NAD Skin: No rash or jaundice HEENT: Conjunctivae pale, sclerae anicteric, intubated Neck: Without masses, no supraclavicular or cervical adenopathy Chest: Clear anterolaterally Heart: Regular rate and rhythm without S3 or rub Abdomen: Soft, dressings intact, multiple drains with significant serous output Extremities: 1+ edema, no cyanosis; toes well perfused Neuro: Arousable but does not follow commands, no focal findings, no asterixis or myoclonus Results Pertinent Lab Results: Laboratory Tests 04/29 04/29 04/29 0821 0505 0342 Blood Gas pH (7.35 - 7.45 PH) 7.41 pCO2 (35 - 45 TORR) 29 L pO2 (80 - 100 TORR) 88 HCO3 (21 - 28 MEQ/L) 18 L ABG O2 Sat (Measured) (>96.0 %) 95.0 L P-50 (Temp Corrected) Y Carboxyhemoglobin (1.5 - 5.0 %) 0.3 L O2 Concentration % 40% Temperature (97.0 - 100.0 FARH) 100.2 H Respiration Rate (BPM) 24 O2 Delivery Method ESPRIT Vent Mode AC Expiratory Pressure (CMH2O/P) 5 Tidal Volume (CC) 550 Chemistry Sodium (137 - 145 mmol/L) 138 Potassium (3.5 - 5.1 mmol/L) 4.4 Chloride (98 - 107 mmol/L) 109 H Carbon Dioxide (22 - 30 mmol/L) 20 L Anion Gap (5 - 16) 9 BUN (9 - 20 mg/dL) 68 H Creatinine (0.7 - 1.2 mg/dL) 1.3 H Estimated GFR (>60 ml/min) 59 L Glucose (65 - 99 mg/dL) 138 H Calcium (8.4 - 10.2 mg/dL) 8.7 Phosphorus (2.5 - 4.5 mg/dL) 3.5 Magnesium (1.6 - 2.3 mg/dL) 2.3 Total Bilirubin (0.2 - 1.3 mg/dL) 2.2 H Direct Bilirubin (< 0.4 mg/dL) 1.4 H AST (17 - 59 U/L) 80 H ALT (21 - 72 U/L) 31 Ammonia (9 - 30 umol/L) 45 H Albumin (3.5 - 5.0 g/dL) 2.6 L Hematology CBC w Diff NO MAN DIFF REQ WBC (4.8 - 10.8 /CUMM) 7.4 RBC (4.70 - 6.10 /CUMM) 2.87 L Hgb (14.0 - 18.0 G/DL) 9.2 L Hct (42 - 52 %) 28.0 L MCV (80.0 - 94.0 FL) 97.5 H MCH (27.0 - 31.0 PG) 32.2 H RDW (11.5 - 14.5 %) 16.0 H Plt Count (130 - 400 /CUMM) 153 MPV (7.4 - 10.4 FL) 8.7 Gran % (42.2 - 75.2 %) 69.8 Lymphocytes % (20.5 - 51.1 %) 8.4 L Monocytes % (1.7 - 9.3 %) 19.4 H Eosinophils % (0 - 5 %) 1.5 Basophils % (0.0 - 2.0 %) 0.9 PUBS MCHC (33.0 - 37.0 G/DL) 33.0 Immunology Absolute Granulocytes (1.4 - 6.5 /CUMM) 5.2 Absolute Lymphocytes (1.2 - 3.4 /CUMM) 0.6 L Absolute Monocytes (0.10 - 0.60 /CUMM) 1.4 H Absolute Eosinophils (0.0 - 0.7 /CUMM) 0.1 Absolute Basophils (0.0 - 0.2 /CUMM) 0.1 Miscellaneous Phlebotomy Draw Site LEFT RADIAL 04/28 04/28 0613 4380 Blood Gas pH (7.35 - 7.45 PH) 7.31 L pCO2 (35 - 45 TORR) 33 L pO2 (80 - 100 TORR) 87 HCO3 (21 - 28 MEQ/L) 16 L ABG O2 Sat (Measured) (>96.0 %) 96.0 P-50 (Temp Corrected) N Carboxyhemoglobin (1.5 - 5.0 %) 0 L O2 Concentration % .40 Respiration Rate (BPM) 18 O2 Delivery Method VENT Vent Mode A/C Expiratory Pressure (CMH2O/P) 5 Tidal Volume (CC) 550 Chemistry Sodium (137 - 145 mmol/L) 137 Potassium (3.5 - 5.1 mmol/L) 4.7 Chloride (98 - 107 mmol/L) 106 Carbon Dioxide (22 - 30 mmol/L) 22 Anion Gap (5 - 16) 9 BUN (9 - 20 mg/dL) 64 H Creatinine (0.7 - 1.2 mg/dL) 1.8 H Estimated GFR (>60 ml/min) 40 L Glucose (65 - 99 mg/dL) 134 H Calcium (8.4 - 10.2 mg/dL) 8.3 L Phosphorus (2.5 - 4.5 mg/dL) 3.9 Magnesium (1.6 - 2.3 mg/dL) 2.3 Total Bilirubin (0.2 - 1.3 mg/dL) 2.4 H AST (17 - 59 U/L) 98 H ALT (21 - 72 U/L) 32 Albumin (3.5 - 5.0 g/dL) 2.5 L Hematology CBC w Diff MAN DIFF ORDERED WBC (4.8 - 10.8 /CUMM) 8.4 RBC (4.70 - 6.10 /CUMM) 2.83 L Hgb (14.0 - 18.0 G/DL) 9.1 L Hct (42 - 52 %) 27.7 L MCV (80.0 - 94.0 FL) 97.7 H MCH (27.0 - 31.0 PG) 31.9 H RDW (11.5 - 14.5 %) 15.8 H Plt Count (130 - 400 /CUMM) 143 MPV (7.4 - 10.4 FL) 9.2 Gran % (42.2 - 75.2 %) 68.5 Lymphocytes % (20.5 - 51.1 %) 9.4 L Monocytes % (1.7 - 9.3 %) 20.4 H Eosinophils % (0 - 5 %) 1.4 Basophils % (0.0 - 2.0 %) 0.3 Segmented Neutrophils (42.2 - 75.2 %) 66 Band Neutrophils (0.0 - 5.0 %) 2 Lymphocytes (20.5 - 51.1 %) 11 L Monocytes (1.7 - 9.3 %) 15 H Eosinophils (0 - 5.0 %) 5 Metamyelocytes (0.0 - 1.0 %) 1 Platelet Estimate (ADEQUATE) ADEQUATE Polychromasia 1+ Hypochromic-Microcytic 1+ Poikilocytosis 1+ Basophilic Stippling 1+ Ovalocytes 1+ PUBS MCHC (33.0 - 37.0 G/DL) 32.7 L Immunology Absolute Granulocytes (1.4 - 6.5 /CUMM) 5.8 Absolute Lymphocytes (1.2 - 3.4 /CUMM) 0.8 L Absolute Monocytes (0.10 - 0.60 /CUMM) 1.7 H Absolute Eosinophils (0.0 - 0.7 /CUMM) 0.1 Absolute Basophils (0.0 - 0.2 /CUMM) 0 Miscellaneous Phlebotomy Draw Site RIGHT RADIAL Other Body Source Fld Total RBCs Counted (%) 100 04/27 04/26 04/26 0433 1845 1800 Blood Gas pH (7.35 - 7.45 PH) 7.35 pCO2 (35 - 45 TORR) 38 pO2 (80 - 100 TORR) 86 HCO3 (21 - 28 MEQ/L) 20 L ABG O2 Sat (Measured) (>96.0 %) 94.0 L P-50 (Temp Corrected) N Carboxyhemoglobin (1.5 - 5.0 %) 0.3 L O2 Concentration % 40% Temperature (97.0 - 100.0 FARH) 99.1 Respiration Rate (BPM) 18 O2 Delivery Method ESPRIT Vent Mode AC Expiratory Pressure (CMH2O/P) 5 Tidal Volume (CC) 550 Chemistry Sodium (137 - 145 mmol/L) 136 L Potassium (3.5 - 5.1 mmol/L) 4.5 Chloride (98 - 107 mmol/L) 105 Carbon Dioxide (22 - 30 mmol/L) 22 Anion Gap (5 - 16) 9 BUN (9 - 20 mg/dL) 54 H Creatinine (0.7 - 1.2 mg/dL) 2.0 H Estimated GFR (>60 ml/min) 36 L Glucose (65 - 99 mg/dL) 126 H Calcium (8.4 - 10.2 mg/dL) 8.1 L Phosphorus (2.5 - 4.5 mg/dL) 3.8 Magnesium (1.6 - 2.3 mg/dL) 2.2 Total Bilirubin (0.2 - 1.3 mg/dL) 2.7 H AST (17 - 59 U/L) 105 H ALT (21 - 72 U/L) 34 Albumin (3.5 - 5.0 g/dL) 2.5 L Hematology CBC w Diff NO MAN DIFF REQ WBC (4.8 - 10.8 /CUMM) 8.7 RBC (4.70 - 6.10 /CUMM) 2.90 L Hgb (14.0 - 18.0 G/DL) 9.3 L Hct (42 - 52 %) 28.8 L MCV (80.0 - 94.0 FL) 99.1 H MCH (27.0 - 31.0 PG) 32.2 H RDW (11.5 - 14.5 %) 16.0 H Plt Count (130 - 400 /CUMM) 132 MPV (7.4 - 10.4 FL) 8.8 Gran % (42.2 - 75.2 %) 72.8 Lymphocytes % (20.5 - 51.1 %) 7.4 L Monocytes % (1.7 - 9.3 %) 18.0 H Eosinophils % (0 - 5 %) 1.5 Basophils % (0.0 - 2.0 %) 0.3 PUBS MCHC (33.0 - 37.0 G/DL) 32.5 L Immunology Absolute Granulocytes (1.4 - 6.5 /CUMM) 6.3 Absolute Lymphocytes (1.2 - 3.4 /CUMM) 0.6 L Absolute Monocytes (0.10 - 0.60 /CUMM) 1.6 H Absolute Eosinophils (0.0 - 0.7 /CUMM) 0.1 Absolute Basophils (0.0 - 0.2 /CUMM) 0 Miscellaneous Phlebotomy Draw Site DOUGLAS Toxicology Random Vancomycin (ug/ml) < 5.0 Urines Ur Creatinine 24 Hour Cancelled 04/26 1800 Chemistry Sodium (137 - 145 mmol/L) 134 L Potassium (3.5 - 5.1 mmol/L) 4.1 Chloride (98 - 107 mmol/L) 103 Carbon Dioxide (22 - 30 mmol/L) 23 Anion Gap (5 - 16) 8 BUN (9 - 20 mg/dL) 48 H Creatinine (0.7 - 1.2 mg/dL) 2.0 H Estimated GFR (>60 ml/min) 36 L BUN/Creatinine Ratio (7 - 25 %) 24.0 Urines Ur Creatinine 24 Hour (mg/dL) 325.2 Ur Sodium 24 Hour (30 - 90 mmol/L) < 5 L Fraction Sodium Excret (<1% %) Ur Potassium 24 Hour (mmol/L) 72.4
--- NOTE | 2016-04-29 12:32 | PN- Resident CRCU ---
Subjective HPI/CRCU Issues: patient is a 50 y/o Male, with a significant past medical history of hypertension, hyperlipidemia, GERD, diverticulosis, degenerative joint disease, a vascular necrosis status post hip replacement, fatty liver disease, alcohol abuse presented with chronic alcohol abuse, nausea, vomting, abd distension and pain which got worse so he presented to ED on 04/21/2016. On Evaluation CT scan showed pneumoperitoneum, moderate ascites.On examination the abdomen was distended and tender to palpation , so diagnostic paracentesis was done which showed WBC 9504, RBC 2156. Because of the perforation, It seems that patient developed the secondary bacterial peritonitis. We took surgical consultation. The next couple of hours patient went into septicemia and shock. So he was given IV fluids and prophylactic antibiotics including ceftriaxone metronidazole and vancomycin. We catheterized the patient. Despite of these measures his blood pressure going down , so we took surgical consultation and plan for emergent surgery. Meantime, we intubated the patient and put him on mechanical ventilation(assist control mode, TV-500, respiratory rate 28, PEEP 5, FiO2 100%), triple-lumen catheter was placed in the right side of jugular vein. Patients blood pressure was continuosly going down, so we started him on Levothroid/vasopressin. We also started him on fentanyl and propofol drip. The culture of the ascites fluid came back positive for gram-negative. We took the consult from infectious disease specialist/Abdullahi Osuna MD. He advised to change ceftriaxone to ceftazidime and advised to wait for sensitivities report. Patient went to surgery on 04/22/2016. In postop, His blood pressure was 119/62. He is improving after surgery. When blood pressure remained maintained to normal , we stopped all the pressures and also slowly stopped sedation. We tried weaning multiple times. In between the patient started having fever of 100.2, awaited. CT scan of chest/abdomen/pelvis on 04/29/2016 which showed moderate right-sided pleural effusion and consolidation and collapse of right lower lobe. CRCU issues - Perforated duodenal ulcer s/p exploratory laparoscopy with grahm plication of duodenal ulcer Secondary bacterial Peritonitis Septic shock with MODS/ MATT improving/ Lactic acidosis improving/ Alcoholic hepatitis with transaminitis Ascitis Sigmoid Diverticulitis Hypertension Hyperlipidemia Morbidly Obese 24 Hour Events: Overnight,It was uneventful. 8AM * Patient was not responding to commands. We were suspecting that he went into Wernicke's encephalopathy. * We gave him high dose thiamine and IV fluid in from of banana bag * Patient was also started having fever, MAXIMUM TEMPERATURE 100.2, so we did CT chest/abdomen/pelvis shows moderate side of right pleural effusion and lung, Right lower lobe collapse and consolidation. 1:00AM Talked to Dr. Hernandez if he can stop albumin, he states that there is no role of albumin after 24 to 48 hours. Objective Vital Signs & I&O Last 8 Hrs of Vitals and I&O: Blood pressure- 110/52 Heart rate -82 Spo2 - on ventilator, saturating 100% Temperature -99.8 Exam General Appearance: well developed/nourished, no apparent distress, comfortable, intubated, obese Head: atraumatic, normal appearance Ears, Nose, Throat: patientis having endotracheal tube, NG tube Neck: normal inspection, supple Respiratory: chest non-tender, no respiratory distress, quiet respiration, decreased breath sounds, crackles, rhonchi, decreased air entry on the right middle and the lower lobe Cardiovascular: regular rate/rhythm, edema Gastrointestinal: soft, non-tender Extremities: normal inspection, normal capillary refill, normal range of motion, pedal edema Weaning Parameters NIF: 17 Minute Volume: 5.09 Resp rate: 19 Vt: 150 Heart Rate: 84 Weaning Schedule Start Time: 1105 Minute Volume: 10.3 Resp Rate: 18 Vt: 621 Heart Rate: 83 End Time: 1107 Minute Volume: 0 Resp Rate: 0 Vt: 0 Heart Rate: 83 Current Medications: Current Medications Sig/Roberto Start time Last Medication Dose Route Stop Time Status Admin Albumin Human 25 GM Q8 04/26 1400 DC 04/29 IV 0645 Albuterol Sulfate 3 ML Q4P PRN 04/22 1145 AC 04/22 INH 1134 Fat Emulsion 350 ML Q24H 04/29 1900 AC 04/29 Intravenous IV 04/30 Fat Emulsion 350 ML Q24H 04/28 190 DC 04/28 Intravenous IV 04/29 Fentanyl Citrate 1,000 MCG Q14H 04/24 1700 DC 04/27 Dextrose/Water 250 ML IV 195 Heparin Sodium 5,000 UNIT Q8 04/24 1400 AC 04/30 (Porcine) SC 0603 Hydromorphone HCl 2 MG Q6P PRN 04/22 0930 AC IV Lorazepam 2 MG ONE ONE 04/30 06 DC 04/30 IV 04/30 0601 0603 Lorazepam 100 MG Q16H 04/30 0400 AC 04/30 Dextrose/Water 1,000 ML IV 0521 Lorazepam 2 MG ONE ONE 04/29 191 DC 04/29 IV 04/29 191 191 Lorazepam 50 MG Q24H 04/29 191 DC 04/29 Dextrose/Water 500 ML IV 04/30 0359 2030 Lorazepam 2 MG ONE ONE 04/29 1615 DC 04/29 IV 04/29 161 1627 Lorazepam 2 MG Q1 PRN 04/29 1615 AC 04/29 IV 2356 Meropenem 1 GM IQ8 04/23 1600 AC 04/29 IV 2357 Multivitamins 1 JORDAN ONCE ONE 04/29 09 DC 04/29 Folic Acid 1 MG IV 04/29 1703 1105 Sodium Chloride 1,000 ML Norepinephrine 4 MG Q24H 04/27 1045 DC 04/27 Sodium Chloride 250 ML IV 1107 Ondansetron HCl 4 MG Q8P PRN 04/22 0600 IV Pantoprazole Sodium 40 MG BID 04/22 2200 AC 04/29 IV 2156 Sodium Chloride 1,000 ML Q8H 04/29 1701 AC 04/30 IV 0100 Sodium Chloride 1,000 ML Q8H 04/23 0115 DC 04/29 IV 0647 Thiamine HCl 500 MG Q8H 04/29 0900 AC 04/30 Sodium Chloride 250 ML IV 05/02 0159 0048 Thiamine HCl 500 MG Q8 04/29 0832 DC IV 05/01 2201 Total Parenteral 1 UNIT Q24H 04/29 190 DC 04/29 Nutrition IV 04/29 1902006 Total Parenteral 1 UNIT Q24H 04/28 1900 DC 04/28 Nutrition IV 04/29 1859 2016 Impression/Plan Impression/Problem List Impression: Impression and Plan - Patient is awake, not following the commands. He is off the levofed/fantanyl/ Ativan. POD-7 Ventilator -D7 right sided PICC line - D3, CONNIE drains-3 - D7 Foleys cathter -D7 Respiratory * According to Dr. Arroyo, We'll keep the CVP of 12 and BP > [address] Balderas says keep SAS 2-3. * Blood pressure remained below, then we will start patient on low-dose levofed. Currently he is off Levofed. * He is on ventilator, Ventilator Settings is -AC, TV-550, IPAP -24, RR-18, PEEP -5, Fio2 45. * There is decreased air entry on the right middle and lower lobe , crepts in both lungs * ABG showed -PH-7.31,PCo2-33,PO2-87 Neurology * Although patient is awake but not responding to commands.? We we are suspecting Wernicke's encephalopathy. So we gave high dose thiamine and started him on banana bag 125 cc per hour. * We also checked for serum ammonia which come back to 45. Infectious * Ascitic fluids is growing -enterobacter cloacae and alpha strept. * We will follow ID rcms * We will continue Meopenem 1g iv 8hrly. * he had high temperature 100.2 in the night, to rule out the source of infection. We orderd CT chest/abdomen/pelvis, which showed moderate right-sided pleural effusion with right lower lobe consolidation and collapse. I'm suspecting it may be due to aspiration. 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 Cardiology * Patient is hemodynamically stable Gastroenterology * According to the surgeons, we will continue nothing by mouth, NG tube, TPN, weaning trial, obtaining, GI prophylaxis, monitoring CONNIE output. * There are 3 CONNIE drains -900 * Abdoman is soft, still no bowel sounds on examiantion * We will do strict Intake output Charting * We will follow GI [facility] Urology * BUN -68 Cr-1.3 * We'll monitor it regularly * Urine output in last 24 hrs is 3552cc * We will continue IV fluids -150 ml/hrs * Strict I/O charting Endocrine * TSH -8.9, T4 -1.85 * It seems patient is having Sick Euthyroid syndrome. * We discussed with endocrinology. * We will repeat TFT after patient get recovered. Skin * There are multiple dressings on the skin, abdomen for drain, * PICC line is on the right-hand Diet -continue TPN as advised by dietitian. DVT prophylaxis -ALPS/ Heparin CODE STATUS-full code Problem List: 1. MATT (acute kidney injury) 2. Sepsis 3. At risk for ventilator-associated event 4. Alcoholic hepatitis 5. Pleural effusion Pain Ratin Tomorrow's Labs & Rationales: CBC, ICU bundle, chest x-ray, ABG, Plan DVT/Prophylaxis: mechanical
--- NOTE | 2016-04-29 13:05 | NUR ---
PT REMAINS DROWSY AROUSABLE, UNABLE TO STAY AWAKE. OPENING EYES TO VOICE BUT NOT TRACKING, MOVES EXTREMETIES BUT DOES NOT FOLLOW COMMANDS. AMMONIA LEVEL CHECKED AND RESULTS DISCUSSED WITH DR JOHNSON. HE REMAINS VENTED AC 24 550 40 5 SATS 91-95%. LUNGS SOUNGS ARE RHONCHOROUS WITH SCANT AMOUTN OF WHITE FROTHY SECRETIONS VIA ETT AND MOD AMT OF THICK CLR/WHITE SECRETIONS VIA ORALLY. HE IS UNABLE TO WEAN THIS TIME RELATED TO HIS MENTAL STATUS. NIHARIKA PICC LINE REMAINS INSITU WITH TPN AND LIPID AND CONTINUOUS MVI IVF INFUSING. THIAMINE BOLUS GIVEN. PT REMAINS ON IV MERAPENUM, ALBUMIN, AND PROTONIX. ALPS ON AND HEPARIN SCHEDULED PER EMAR. CAT SCAN OBTAINED, PT TOLERATED WELL. ABDOMEN REMAINS DISTENDED, WEEPING AT CONNIE SITES X 3, LARGE AMMOUNTS OF SERROUS FLUID. SURGEON IS AWARE. STERLING IS INSITU AND U.O IS CLEAR, ORANGE >50ML/HR.
--- NOTE | 2016-04-29 13:20 | NUR ---
WOCN CONSULTED FOR DTI TO PTS R UPPER BACK AND TAPE BLISTERS TO R AXILLARY. PT REPOSITIONED TO AVOID FURTHER INJURY AND NEW SPECIALTY BED ORDERED.
--- NOTE | 2016-04-29 13:21 | NUR ---
FREQUENT DRESSING CHANGES TO ABDOMEN R/T CONTINUOUS HEAVY DRAINAGE OF SERROUS FLUID FROM CONNIE SITES.
--- NOTE | 2016-04-29 13:23 | NUR ---
Wound Care Assessment: Requested by nursing staff to evaluate a dark purple area that is noted to the right scapula. Area measured 2.5 X 4cm- area is intact however is a deep purple color and is non blanchable- presumed area of deep tissue injury. A hardened surface is noted to the catergory 2 mattress where the equipment for the percussion is located. This area matches to where the area od DTI is on the patient. Pt remains intubated and on bedrest. TPN and lipids infusing. Impression: Presumed area of DTI to the right scapula. Recommendations: Discontinue use of lowboy catergory 2 mattress with percussion and please order specialty bed without the use of percussion that includes a caertgory 2 mattress. Completely offload area. Monitor every shift for any futher decline. Follow all additional pressure injury guidelines.
[2016-04-29 16:00] VITALS: BP 114/60
--- NOTE | 2016-04-29 16:00 | NUR ---
ASSUMED CARE OF PATIENT. PATIENT SEDATE, OPENS EYES TO STIMULUS BUT DOES NOT TRACK WITH EYES OF FOLLOW COMMANDS. RAÚL, MOVES ALL EXTRENITIES RANDOMLY. PATIENT REMAINS INTUBATE, LUNGS CLEAR BUT DIMINISHED AT BASES DIFFICULLT TO AUSCULTATE DUE TO BODY HABITUS. ABD LARGE AND DISTENDED BUT SOFT, GAUZE DRESSINGS TO ENTIRE ABDOMEN INTACT. PATIENT HAS THREE LARGE CONNIE DRAINS WHICH ARE INTACT DRAINING SEROUS FLUID. STERLING INTACT DRAINING PATRICK URINE. MONITOR NSR. PATIENT WITH DTI BELOW R SCAPULA AND SOME REDNESS WHICH IS BLANCHABLE TO BUTTOCKS. TL PICC INTACT TO NIHARIKA.
--- NOTE | 2016-04-29 16:30 | NUR ---
RT IN SUCTIONING AIRWAY, REMOVED THE ORAL AIRWAY AND PATIENT BEGAN BITING ET TUBE AND NOT ALLOWING VENTILATION OR SUCTIONING. RT OPENED MOUTH WITH YANKAUER SUCTION AND REPLACED AIRWAY. PATIENT NOW THRASHING, PULLING VIOLENTLY AT RESTRAINTS, STRAINING HEAD AND NECK IN ATTEMPT TO EXTUBATE SELF. PATIENT UNCONSOLABLE. DR VERGARA IN TO SEE PATIENT, ATIVAN 2MG IVP ORDERED AND GIVEN WITH RESULTING RELAXATION AND SEDATION.
--- NOTE | 2016-04-29 17:00 | NUR ---
ABDOMINAL DRESSINGS SATURATED WITH SEROUS DRAINAGE. DRESSINGS CHANGED RESULTING IN INCREASED AGITATION AND VIOLENT THRASHING IN ATTEMPT TO SELF EXTUBATE, ADDITIONAL 2MG OF ATIVAN GIVEN WITH RESULTING CALMING OF PATIENT.
--- NOTE | 2016-04-29 17:04 | NUR ---
PATIENT TRANSFERRED TO SIZEWISE BED WITH ROTATIONAL AIR MATTRESS FOR PREVENTION OF FURTHER SKIN BREAKDOWN AND TO PROMOTE HEALING OF EXISTING DTI. PATIENT AGAIN AGITATED AFTER TRANSFER AND ADDITIONAL 2MG OF ATIVAN GIVEN AT THIS TIME. MAY WRIST RESTAINTS INTACT, ET TUBE INTACT.
--- NOTE | 2016-04-29 19:15 | NUR ---
PATIENT ONCE AGAIN AWAKENED TO SUCTIONING OF THE ENDOTRACHEAL TUBE. UNCONSOLABLE BY THIS NURSE OR FAMILY. THRASHING AND ONCE AGAIN ATTEMPTING TO SELF EXTUBATE. PATIENT PLANTING FEET ON BED AND ATTEMPTING TO TO LIFT SELF OFF BED. DR SILVA NOTIFIED AND AN ADDITIONAL 2MG OF ATIVAN GIVEN. ATIVAN DRIP ORDERED AND PHARMACY NOTIFIED. PATIENT ONCE AGAIN RESPONDED TO ATIVAN.
[2016-04-29 20:00] VITALS: BP 101/42
[2016-04-30] VITALS: BP 120/76
--- NOTE | 2016-04-30 00:01 | NUR ---
04/29/16 2330 PATIENT RECEIVED THRASHING IN BED, FIGHTING VENTILATOR, SAS 5- ATIVAN DRIP INCREASED TO 4MG/HR WITHOUT EFFECT 2344 DR SANTIZO MADE AWARE 2349 2MG ATIVAN GIVEN IV PER MD- HEART RATE INCREASED TO 130 TO 140/MIN, O2 O2 SAT DECREASED TO 86% 0000 HEART RATE DECREASED TO 90'S/MIN, O2 SAT 94%, SAS 3, PATIENT COMFORTABLY SEDATED, SKIN PINK, WARM AND DRY, OGT IN PLACE AND TO LOW INTERMITTENT WALL SUCTION- DARK GREEN DRAINAGE NOTED, ETT TO VENTILATOR WITH FIO2 40%, HEALTH AND WELLNESS COORDINATOR SINUS WITHOUT ECTOPY, CONNIE DRAINS IN PLACE AND COMPRESSED- SERROUS DRAINAGE, LARGE AMT WEEPING FROM ABDOMINAL SITES, NO AUDIBLE BS, STERLING TO GRAVITY DRAINAGE WITH CLEAR PATRICK COLORED UO
--- NOTE | 2016-04-30 01:11 | NUR ---
PATIENT AGAIN FIGHTING VENTILATOR WITH DECREASE IN O2 SAT TO 88% AND RR AT 30/MIN- SAS 4/5, PATIENT OPENS EYES BUT DOES NOT TRACK WITH GAZE, DOES NOT FOLLOW COMMANDS- DR COVARRUBIAS MADE AWARE- ATIVAN DRIP INCREASED TO 5 MG/HR
--- NOTE | 2016-04-30 02:54 | PN- General Surgery ---
See Addendum Subjective Subjective: Patient remains intubated and is weaning off of sedation. Is on ativan drip presently. Is awakened easily but does not follow commands presently. Does not follow gaze. Has been agitated periodically. Objective Vital Signs and I&Os Vital Signs Date Time Temp Pulse Resp B/P Pulse O2 O2 Flow FiO2 Ox Delivery Rate 04/30 0051 40 04/30 0000 99.3 92 24 120/76 04/30 0000 94 Ventilator 40% 04/30 0000 99.3 92 24 120/76 94 Ventilator 40% 04/29 2216 40 04/29 2000 99.6 76 23 101/42 04/29 2000 95 Ventilator 40% 04/29 1911 40 04/29 1600 94 Ventilator 40% 04/29 1600 100.3 136 32 114/60 94 Ventilator 40% 04/29 1552 40 04/29 1415 40 04/29 1200 99.6 72 24 99/41 04/29 1200 93 Ventilator 40% 04/29 1155 40 04/29 0806 82 110/52 04/29 0805 40 04/29 0800 99.8 86 24 110/62 04/29 0800 95 Ventilator 40% 04/29 0800 99.8 86 24 110/62 95 Ventilator 40% 04/29 0542 40 04/29 0359 40 04/29 0334 92 Ventilator 40% Intake & Output 04/30 0804/30 0000 04/29 1600 04/29 0800 04/29 0000 04/28 1600 Intake Total 1799.0 1801.0 1832.0 2150.4 2083.0 Output Total 1710 1400 1220 1010 1125 Balance 89.0 401.0 612.0 1140.4 958.0 Intake, IV 278 605 4978 2150.4 1210 Intake, Lipid 134.0 117.0 104.0 140.0 Intake, Oral 0 0 Intake, 736 734 656 733 TPN/PPN Number 0 0 Bowel Movements Output, 1050 850 720 675 825 Drainage Output, 50 50 Gastric Drainage Output, Urine 660 500 450 335 300 Physical Exam: General: Intubated on ativan drip, occasional bouts of agitation Pulmonary: Normal air movement, on ventilator Cardiac: Sinus rhythm, rate 80-90 bpm Abdomen: Distended. Dressing saturates with serous drainage that leaks around micheline drains. MICHELINE x4 filling with approximately 1200 cc/shift Extremities: Moves all extremites, some peripheral edema appreciated. Skin warm, pale. : Adequate urine output Assessment/Plan Assessment/Plan This is a 50 year old male POD 8 s/p em patch for duodenal ulcer -Continue nothing by mouth with NG tube until patient is extubated. -Continue TPN for nutritional support. Consider tube feeds soon, although we are still awaiting bowel function. -Continue weaning trials. -Pain control and Ativan drip for sedation. Wean per sedation level. -Continue meropenem for peritonitis. Appreciate ID input. -GI prophylaxis with IV Protonix twice a day. -Continue MICHELINE drainage of ascitic fluid. Albumin dc'd one day ago. -Creatinine slightly improved this morning., BUN climbing. Continue to monitor. -H&H remained stable, continue to monitor. -Will discuss with attending.
--- NOTE | 2016-04-30 03:41 | NUR ---
SUYAPA MCCORMACK AND SATISH MADE AWARE THAT PATIENT CONTINUES TO HAVE PERIODS OF AGITATION- THRASHING IN BED, FIGHTING VENTILATOR AND RESTRAINTS AND CAUSING O2 SAT TO DECREASE- TO TITRATE ATIVAN DRIP TO MAINTAIN SAS OF 3 PER MD'S
[2016-04-30 04:00] VITALS: BP 107/42
--- NOTE | 2016-04-30 05:06 | Event Note ---
Event Note Event Note: Subjective: I was called by the nursing staff who noticed bright red by NG tube. Objective: Vital signs: BP- 111/51 , pulse- 95 , temp- 98.4*F , patient is on ventilator with ETT, oxygen saturation- 94% (on ventilator), RR- 24/min NG tube: has 50ml bright red blood collected via NGT, and 30ml aspirated in syringe from NGT as well. AM blood being drawn right now. Assessment and plan: 50-year-old male with history of recently perforated total ulcer status post surgical repair, peritonitis, sepsis, and multiple medical problems, currently bleeding in GIT via NG tube. Vitals stable in the sense that it has been this way since some time, and this is not a drastic drop/change in VS. -H&H being sent as we are assessing the patient. -There is no more active drainage of blood via NG tube. -X-ray to check proper positioning of the tube has been ordered. -Surgical PA paced at 0505 AM. Update 515 AM: Surgical PA now aware of how the situation, suggested chest x-ray to confirm correct position of the NG tube. PA will see the patient and recommend further steps.
[2016-04-30 05:57] LABS: ABSOLUTE BASOPHIL COUNT 0 /CUMM (0.0-0.2); ABSOLUTE EOSINOPHIL COUNT 0.1 /CUMM (0.0-0.7); ABSOLUTE GRANULOCYTE CT 6.3 /CUMM (1.4-6.5); ABSOLUTE MONOCYTE COUNT 1.7 /CUMM (0.10-0.60); BASOPHIL % 0.5 % (0.0-2.0); EOSINOPHIL % 0.9 % (0-5); GRANULOCYTE % 69.1 % (42.2-75.2); HEMATOCRIT 32.2 % (42-52); MEAN CORPUSCULAR HGB 32.1 PG (27.0-31.0); MEAN CORPUSCULAR HGB CONC 33.1 G/DL (33.0-37.0); MEAN CORPUSCULAR VOLUME 97.2 FL (80.0-94.0); MEAN PLATELET VOLUME 9.4 FL (7.4-10.4); PLATELET COUNT 176 /CUMM (130-400); RBC DISTRIBUTION WIDTH 15.7 % (11.5-14.5); RED BLOOD CELL CT 3.31 /CUMM (4.70-6.10); WHITE BLOOD CELL COUNT 9.1 /CUMM (4.8-10.8)
--- NOTE | 2016-04-30 07:41 | PN- Resident CRCU ---
Subjective HPI/CRCU Issues: patient is a 50 y/o Male, with a significant past medical history of hypertension, hyperlipidemia, GERD, diverticulosis, degenerative joint disease, a vascular necrosis status post hip replacement, fatty liver disease, alcohol abuse presented with chronic alcohol abuse, nausea, vomting, abd distension and pain which got worse so he presented to ED on 04/21/2016. On Evaluation CT scan showed pneumoperitoneum, moderate ascites.On examination the abdomen was distended and tender to palpation , so diagnostic paracentesis was done which showed WBC 9504, RBC 2156. Because of the perforation, It seems that patient developed the secondary bacterial peritonitis. We took surgical consultation. The next couple of hours patient went into septicemia and shock. So he was given IV fluids and prophylactic antibiotics including ceftriaxone metronidazole and vancomycin. We catheterized the patient. Despite of these measures his blood pressure going down , so we took surgical consultation and plan for emergent surgery. Meantime, we intubated the patient and put him on mechanical ventilation(assist control mode, TV-500, respiratory rate 28, PEEP 5, FiO2 100%), triple-lumen catheter was placed in the right side of jugular vein. Patients blood pressure was continuosly going down, so we started him on Levothroid/vasopressin. We also started him on fentanyl and propofol drip. The culture of the ascites fluid came back positive for gram-negative. We took the consult from infectious disease specialist/Abdullahi Osuna MD. He advised to change ceftriaxone to ceftazidime and advised to wait for sensitivities report. Patient went to surgery on 04/22/2016. In postop, His blood pressure was 119/62. He is improving after surgery. When blood pressure remained maintained to normal , we stopped all the pressures and also slowly stopped sedation. We tried weaning multiple times. In between the patient started having fever of 100.2, awaited. CT scan of chest/abdomen/pelvis on 04/29/2016 which showed moderate right-sided pleural effusion and consolidation and collapse of right lower lobe. CRCU issues - Perforated duodenal ulcer s/p exploratory laparoscopy with grahm plication of duodenal ulcer Secondary bacterial Peritonitis Septic shock with MODS/ MATT improving/ Lactic acidosis improving/ Alcoholic hepatitis with transaminitis Ascitis Sigmoid Diverticulitis Hypertension Hyperlipidemia Morbidly Obese 24 Hour Events: Overnight, the patient is having upper GI bleed and agitation, according to the night team they started him on ativan drip.And also After suctioning they found 50cc of bright red blood and informed surgical team. Hemoglobin was stable so no action was taken. 9AM Patient was having right sided pleural effusion. On ultrasound it was found,it is very mild and the radiologist says that there is more chances of pneumothorax , even If they try even for diagnostic purposes.So it was decided not to do a thoracocentesis. 3:00PM Discussed with Dr Osuna, patient doesnt need antibiotics, as he is not having any septic focus. Objective Vital Signs & I&O Last 8 Hrs of Vitals and I&O: Blood pressure- 119/56 Heart rate -106 Spo2 - on ventilator, saturating 100% Temperature -100.2 Exam General Appearance: comfortable, sedated, intubated, obese Head: atraumatic, normal appearance Ears, Nose, Throat: patient is intubated and have oral airway Neck: normal inspection, supple Respiratory: normal breath sounds, chest non-tender, no respiratory distress, quiet respiration, there is decrease air entry on right side and also generalized crepts Cardiovascular: regular rate/rhythm, edema Gastrointestinal: soft, bowel sound is positive, there are three drains Extremities: normal inspection, normal capillary refill, pedal edema Weaning Parameters NIF: 17 Minute Volume: 5.09 Resp rate: 19 Vt: 150 Heart Rate: 84 Weaning Schedule Start Time: 1105 Minute Volume: 10.3 Resp Rate: 18 Vt: 621 Heart Rate: 83 End Time: 1107 Minute Volume: 0 Resp Rate: 0 Vt: 0 Heart Rate: 83 Current Medications: Current Medications Sig/Roberto Start time Last Medication Dose Route Stop Time Status Admin Acetylcysteine 2 ML BID 04/30 2200 AC INH Albuterol Sulfate 3 ML EVERY 4 HRS/AWAKE .. 04/30 1436 AC 04/30 INH 1620 Albuterol Sulfate 3 ML Q4P PRN 04/22 1145 DC 04/30 INH 1352 Cyanocobalamin/ 1 BAG DAILY 04/30 1448 CAN Thiamine/Pyridoxine IV Dextrose/Water 1,000 ML Fat Emulsion 350 ML Q24H 04/30 190 AC Intravenous IV 05/01 1859 Fat Emulsion 350 ML Q24H 04/29 1900 AC 04/29 Intravenous IV 04/30 Fat Emulsion 350 ML Q24H 04/28 1900 DC 04/28 Intravenous IV 04/29 Heparin Sodium 5,000 UNIT Q8 04/24 1400 AC 04/30 (Porcine) SC 1429 Hydromorphone HCl 2 MG Q6P PRN 04/22 0930 AC 04/30 IV 0759 Lactulose 20 GM TID 04/30 1000 AC 04/30 PO 1255 Lorazepam 2 MG ONE ONE 04/30 0600 DC 04/30 IV 04/30 0601 0603 Lorazepam 100 MG Q16H 04/30 0400 AC 04/30 Dextrose/Water 1,000 ML IV 0521 Lorazepam 2 MG ONE ONE 04/29 191 DC 04/29 IV 04/29 191 191 Lorazepam 50 MG Q24H 04/29 191 DC 04/29 Dextrose/Water 500 ML IV 04/30 0359 2030 Lorazepam 2 MG Q1 PRN 04/29 1615 AC 04/29 IV 2356 Meropenem 1 GM IQ8 04/23 1600 DC 04/30 IV 0852 Multivitamins 1 JORDAN DAILY 04/30 1700 DC Folic Acid 1 MG IV Dextrose/Water 1,000 ML Multivitamins 1 JORDAN ONCE ONE 04/29 09 DC 04/29 Folic Acid 1 MG IV 04/29 1703 1105 Sodium Chloride 1,000 ML Ondansetron HCl 4 MG Q8P PRN 04/22 0600 IV Pantoprazole Sodium 40 MG BID 04/22 2200 AC 04/30 IV 0852 Sodium Chloride 1,000 ML Q10H 04/30 1515 AC IV Sodium Chloride 1,000 ML Q8H 04/29 1701 DC 04/30 IV 1255 Thiamine HCl 500 MG Q8H 04/29 0900 AC 04/30 Sodium Chloride 250 ML IV 05/02 0159 0925 Total Parenteral 1 UNIT ONE 04/30 190 AC Nutrition IV 05/01 185 Total Parenteral 1 UNIT Q24H 04/29 190 DC 04/29 Nutrition IV 04/29 1902006 Total Parenteral 1 UNIT Q24H 04/28 190 DC 04/28 Nutrition IV 04/29 Impression/Plan Impression/Problem List Impression: Impression and Plan - Patient is awake, not following the commands. He is off the levofed/fantanyl/ Ativan. POD-8 Ventilator -D78 right sided PICC line - D4, CONNIE drains-3 - D8 Foleys cathter -D8 ABG - pH-7.41, PCO2 29, PO2 88, bicarbonate 18 Respiratory * According to Dr. Arroyo, We'll keep the CVP of 12 and BP > [address] Balderas says keep SAS 2-3. * If Blood pressure remained below, then we will start patient on low-dose levofed. Currently he is off Levofed. * He is on ventilator, Ventilator Settings is -AC, TV-550, IPAP -24, RR-18, PEEP -5, Fio2 45. * There is decreased air entry on the right middle and lower lobe , crepts in both lungs * ABG showed -PH-7.41,PCo2-29,PO2-88,Hco3-18 * Patient was having right sided pleural effusion. On ultrasound it was found,it is very mild and the radiologist says that there is more chances of pneumothorax , even If they try even for diagnostic purposes.So it was decided not to do a thoracocentesis Neurology * Although patient is awake but not responding to commands.? We we are suspecting Wernicke's encephalopathy. So we gave high dose thiamine and started him on banana bag 125 cc per hour. * We did CT head which doent showed any intracranial pathology. * We also checked for serum ammonia which come back to 45 (04/29/2016) * Patient is also in alcohol witdrawl, so we will continue ativan drip. Infectious * Ascitic fluids is growing -enterobacter cloacae and alpha strept. * We will follow ID rcms * Discussed with Dr Osuna, patient doesnt need antibiotics. We will stop Meopenem 1g iv 8hrly, as there is no focus and patient already had 7 days course of antibiotics. * he had high temperature 100.2 in the night, to rule out the source of infection. We orderd CT chest/abdomen/pelvis, which showed moderate right-sided pleural effusion with right lower lobe consolidation and collapse. I'm suspecting it may be due to aspiration. Hematology - * Hb-10.6, Megaloblastic anemia due to alcohol, added up with septicemia and shock * We will suplement MultiVit, Thiamine, folic acid. Cardiology * Patient is hemodynamically stable Gastroenterology * According to the surgeons, we can try NG tube, TPN, weaning trial, obtaining, GI prophylaxis, monitoring CONNIE output. * There are 3 CONNIE drains * Abdoman is soft, there are bowel sounds on examiantion * We will do strict Intake output Charting * We will follow GI rcms * We stopped albumin on 04/29/2016. * We started giving lactulose from NG tube but residual was >100cc so we will try one more time, if still be high than we will stop it. Urology * BUN -62 Cr-1.0 * We'll monitor it regularly * Urine output in last 24 hrs is 1610cc * We will continue IV fluids -100 ml/hrs * Strict I/O charting Endocrine * TSH -8.9, T4 -1.85 * It seems patient is having Sick Euthyroid syndrome. * We discussed with endocrinology. * We will repeat TFT after patient get recovered. Skin * There are multiple dressings on the skin, abdomen for drain, * PICC line is on the right-hand Diet -continue TPN as advised by dietitian. DVT prophylaxis -ALPS/ Heparin CODE STATUS-full code Problem List: 1. Pleural effusion 2. At risk for ventilator-associated event 3. Ascites 4. Alcoholic hepatitis Pain Ratin Tomorrow's Labs & Rationales: cbc,icu bundle,abg, cxr Plan DVT/Prophylaxis: mechanical
[2016-04-30 08:00] VITALS: BP 100/54
--- NOTE | 2016-04-30 08:26 | NUR ---
0430 BRIGHT RED BLOOD NOTED FROM NGT- SUYAPA MCCORMACK AND SATISH NOTIFIED AND IN AT BEDSIDE- APPROXIMATELY 50 ML IN SUCTION CANISTER AND 30 ML ASPIRATED 0530 RT UNABLE TO OBTAIN ABG DUE TO PATIENT'S CONTINUED AGITATION AND COMBATIVENESS- NOW THRASHING AND KICKING WITH LEGS 0615 2MG ATIVAN IV BOLUS X1 PER MD ORDER SO THAT PATIENT COULD SAFELY RECEIVE CARE AND AM CXR 0700 PATIENT COMFORTABLY SEDATED, AROUSABLE WITH STIMULI BUT NOT COMBATIVE-ATIVAN DRIP DECREASED TO 6 MG/HR, AWAITING AM MD ROUNDS
--- NOTE | 2016-04-30 08:40 | RADIOLOGY REPORT ---
EXAMINATION: XR PORTABLE CHEST CLINICAL INFORMATION: On ventilator. CT chest showed right-sided pleural effusion. COMPARISON: Chest x-ray and CT chest 04/29/2016. TECHNIQUE: A portable AP 75 degrees semierect view of the chest was obtained. FINDINGS: There are multiple monitor leads overlying the chest. The endotracheal tube tip is unchanged approximately 5 cm above the ching. Enteric tube is noted within the esophagus extending through the lower chest; it is not visualized in the upper abdomen. There has been no interval change in the right-sided PICC line with the tip at the cavoatrial junction. The lungs are hypoexpanded. The cardiac silhouette is prominent but stable. There is opacity at the right base, consistent with pleural effusion and/or consolidation demonstrated on prior imaging, similar in size. There are no pneumothoraces. There is mild prominence of the central pulmonary vasculature. There are no acute osseous findings. IMPRESSION: 1. The study redemonstrates opacity at the right base, most consistent with atelectasis and/or consolidation.
--- NOTE | 2016-04-30 09:44 | PN- CRCU ---
Subjective HPI/Critical Care Issues: The patient remains intubated on mechanical ventilation. Last night, the patient was agitated noting that he was clenching down on the endotracheal tube and resisting against restraints. He had increased tachycardia and diaphoresis. He had to be restarted on Ativan and he is currently at 6 mg per hour. The patient's opens his eyes when his name is called and is tracking today. This is an improvement since yesterday. He continues to have low-grade fevers noting his MAXIMUM TEMPERATURE is 100.3. His respiratory status remained stable noting that he is on 40% oxygen. His urine output remains excellent. He continues to have significant amount of drainage from his CONNIE drains. He had a CT scan of the chest abdomen and pelvis yesterday that demonstrated a moderate right-sided and small left-sided freely Laren pleural effusion without complexity. There was complete collapse and consolidation of the right lower lobe. No intra-abdominal abscesses were seen however the study was done without contrast. There is no evidence of diverticulitis. Objective Current Medications: Current Medications Sig/Roberto Start time Last Medication Dose Route Stop Time Status Admin Albumin Human 25 GM Q8 04/26 1400 DC 04/29 IV 0645 Albuterol Sulfate 3 ML Q4P PRN 04/22 1145 AC 04/22 INH 1134 Fat Emulsion 350 ML Q24H 04/29 190 04/29 Intravenous IV 04/30 Fat Emulsion 350 ML Q24H 04/28 190 DC 04/28 Intravenous IV 04/29 Fentanyl Citrate 1,000 MCG Q14H 04/24 1700 DC 04/27 Dextrose/Water 250 ML IV 1958 Heparin Sodium 5,000 UNIT Q8 04/24 1400 AC 04/30 (Porcine) SC 0603 Hydromorphone HCl 2 MG Q6P PRN 04/22 0930 AC 04/30 IV 0759 Lorazepam 2 MG ONE ONE 04/30 0600 DC 04/30 IV 04/30 0601 0603 Lorazepam 100 MG Q16H 04/30 0400 04/30 Dextrose/Water 1,000 ML IV 0521 Lorazepam 2 MG ONE ONE 04/29 1915 DC 04/29 IV 04/29 191 191 Lorazepam 50 MG Q24H 04/29 191 DC 04/29 Dextrose/Water 500 ML IV 04/30 0359 2030 Lorazepam 2 MG ONE ONE 04/29 1615 DC 04/29 IV 04/29 1616 1627 Lorazepam 2 MG Q1 PRN 04/29 1615 AC 04/29 IV 2356 Meropenem 1 GM IQ8 04/23 1600 AC 04/29 IV 2357 Multivitamins 1 JORDAN ONCE ONE 04/29 0900 DC 04/29 Folic Acid 1 MG IV 04/29 1703 1105 Sodium Chloride 1,000 ML Norepinephrine 4 MG Q24H 04/27 1045 DC 04/27 Sodium Chloride 250 ML IV 1107 Ondansetron HCl 4 MG Q8P PRN 04/22 0600 AC IV Pantoprazole Sodium 40 MG BID 04/22 2200 AC 04/29 IV 2156 Sodium Chloride 1,000 ML Q8H 04/29 1701 AC 04/30 IV 0100 Thiamine HCl 500 MG Q8H 04/29 0900 AC 04/30 Sodium Chloride 250 ML IV 05/02 0159 0048 Thiamine HCl 500 MG Q8 04/29 0832 DC IV 05/01 2201 Total Parenteral 1 UNIT Q24H 04/29 1900 DC 04/29 Nutrition IV 04/29 1901 2006 Total Parenteral 1 UNIT Q24H 04/28 1900 DC 04/28 Nutrition IV 04/29 1859 2016 Vital Signs & I&O Last 24 Hrs of Vitals and I&O: Vital Signs Date Time Temp Pulse Resp B/P Pulse O2 O2 Flow FiO2 Ox Delivery Rate 04/30 0554 40 04/30 0400 98.4 98 24 107/42 04/30 0400 90 Ventilator 40% 04/30 0330 40 04/30 0051 40 04/30 0000 99.3 92 24 120/76 12 0000 94 Ventilator 40% 04/30 0000 99.3 92 24 120/76 94 Ventilator 40% 04/29 2216 40 04/29 2000 99.6 76 23 101/42 04/29 2000 95 Ventilator 40% 04/29 1911 40 04/29 1600 94 Ventilator 40% 04/29 1600 100.3 136 32 114/60 94 Ventilator 40% 04/29 1552 40 04/29 1415 40 04/29 1200 99.6 72 24 99/41 04/29 1200 93 Ventilator 40% 04/29 1155 40 Intake & Output 04/30 1600 04/30 0800 04/30 0000 Intake Total 2188.0 1799.0 Output Total 1770 1710 Balance 418.0 89.0 Intake, IV 1370 929 Intake, Lipid 112.0 134.0 Intake, 706 736 TPN/PPN Number 0 Bowel Movements Output, 1125 1050 Drainage Output, 140 Gastric Drainage Output, Urine 505 660 Exam General Appearance: intubated, opens eyes but not following commands Head: atraumatic Neck: supple Respiratory: no respiratory distress, bilateral anterior rhonchi, the lungs expand symmetrically and the trachea is midline Cardiovascular: regular rate/rhythm, tachycardia, S1 and S2 heard Abdomen: CONNIE drains in place, distended, surgical dressings in place, slight increase in bowel sounds Extremities: warm and dry Skin: no cyanosis or edema Results Last 24 Hrs of Lab Results: Laboratory Tests 04/30/16 0505: Anion Gap 8, Estimated GFR > 60, Glucose 152 H, Calcium 8.7, Phosphorus 3.3, Magnesium 2.3, Total Bilirubin 1.9 H, Direct Bilirubin 1.3 H, AST 82 H, ALT 36, Albumin 2.6 L, CBC w Diff NO MAN DIFF REQ, RBC 3.31 L, MCV 97.2 H, MCH 32.1 H, RDW 15.7 H, MPV 9.4, Gran % 69.1, Lymphocytes % 10.9 L, Monocytes % 18.6 H, Eosinophils % 0.9, Basophils % 0.5, PUBS MCHC 33.1, Absolute Granulocytes 6.3, Absolute Lymphocytes 1.0 L, Absolute Monocytes 1.7 H, Absolute Eosinophils 0.1, Absolute Basophils 0 Diagnostic Data CXR Findings: Persistent right basilar opacity consistent with pleural effusion and consolidation. CT Scan Findings: 1. Moderate right-sided and small left-sided freely layering pleural effusions are seen without obvious complexity visualized on noncontrast study. 2. Complete collapse and consolidation of the right lower lobe and lesser degrees of consolidation and volume loss in the other lobes as above. 3. Limited evaluation of the abdomen and pelvis, no focal acute process is seen. Previously noted intra-abdominal ascites has significantly decreased status post drain placement in the right upper quadrant. 3. Hepatosplenomegaly is noted. 4. Moderate sigmoid and descending colonic diverticulosis with no evidence of acute diverticulitis. Impression/Plan Impression/Plan Impression/Plan: 1. Perforated viscus with multisystem organ failure and septic shock, post op day 8 perforated duodenal ulcer repair. The patient still has low-grade fevers been no evidence of abscess on CT scanning. Doubt empyema. 2. Acute kidney injury - Cr improved, still with increased BUN. 3. Alcoholic hepatitis with improving bilirubin. 4. Alcohol withdrawal with increased agitation requiring ativan for sedation. 5. Macrocytic anemia in the setting of alcohol use. 6. Doubt upper GI bleed. 7. Increasing hyperchloremia, likely from TPN. 8. Alcohol dependence/abuse, ETOH withdrawl. 9. Encephalopathy - hepatic? metabolic? subclinical seizures? 10. Deep tissue injury - right scapula area. Recommendations: * Check a follow-up CBC at 6 PM to ensure no evidence of upper GI bleeding. * Decrease respiratory rate to 18. No need for follow up ABG. * Will begin weaning trials when the patient is more awake and alert. * Lactulose administration - give 20 g 3 times a day, discussed with surgery. * If the patient tolerates lactulose, start low rate tube feeds at 5 ML per hour and do not titrate up until we are sure the patient is stable and not an aspiration risk. * Check a head CT and EEG. * Continue meropenem as per ID. * Please order an ultrasound guided diagnostic and therapeutic thoracentesis. * Continue IV fluid resuscitation per renal. * Monitor urine output/strict I's and O's. * Complete course of high dose thiamine. * Continue MVI and folate. * Continue TPN however decrease amount of NaCl in the TPN. * Continue ventilator bundle with DVT and GI prophylaxis. * Skin care protocol, off load deep tissue injury area. * Continue all supportive care. TTS 55
--- NOTE | 2016-04-30 10:25 | PN- Infect Dx ---
Subjective Subjective: MAXIMUM TEMPERATURE 100.3. He was agitated overnight requiring increased sedation. Objective Last 24 Hrs of Vital Signs/I&O Vital Signs Date Time Temp Pulse Resp B/P Pulse O2 O2 Flow FiO2 Ox Delivery Rate 04/30 1010 40 04/30 0840 40 04/30 0800 97.6 69 24 100/54 04/30 0800 99 Ventilator 40% 04/30 0800 97.6 69 24 100/54 99 Ventilator 40% 04/30 0554 40 04/30 0400 98.4 98 24 107/42 04/30 0400 90 Ventilator 40% 04/30 0330 40 04/30 0051 40 04/30 0000 99.3 92 24 120/76 12/ 0000 94 Ventilator 40% 04/30 0000 99.3 92 24 120/76 94 Ventilator 40% 04/29 2216 40 04/29 2000 99.6 76 23 101/42 04/29 2000 95 Ventilator 40% 04/29 1911 40 04/29 1600 94 Ventilator 40% 04/29 1600 100.3 136 32 114/60 94 Ventilator 40% 04/29 1552 40 04/29 1415 40 04/29 1200 99.6 72 24 99/41 04/29 1200 93 Ventilator 40% 04/29 1155 40 Intake & Output 04/30 1600 04/30 0800 04/30 0000 Intake Total 2188.0 1799.0 Output Total 1770 1710 Balance 418.0 89.0 Intake, IV 1370 929 Intake, Lipid 112.0 134.0 Intake, 706 736 TPN/PPN Number 0 Bowel Movements Output, 1125 1050 Drainage Output, 140 Gastric Drainage Output, Urine 505 660 Physical Exam Other Physical Findings: He is arousable, responsive to pain, on the ventilator Lungs bilateral rhonchi Heart regular rhythm with no murmur Abdomen is distended, positive bowel sounds, with 3 [address] dra[address] still in place, draining a significant amount of clear ascitic fluid Extremities no cyanosis, clubbing or edema; PICC in the right upper extremity with no inflammation at the site Ann catheter remains in place Results Last 24 Hours of Lab Results: Laboratory Tests 04/30 0505 Chemistry Sodium (137 - 145 mmol/L) 142 Potassium (3.5 - 5.1 mmol/L) 4.6 Chloride (98 - 107 mmol/L) 113 H Carbon Dioxide (22 - 30 mmol/L) 22 Anion Gap (5 - 16) 8 BUN (9 - 20 mg/dL) 62 H Creatinine (0.7 - 1.2 mg/dL) 1.0 Estimated GFR (>60 ml/min) > 60 Glucose (65 - 99 mg/dL) 152 H Calcium (8.4 - 10.2 mg/dL) 8.7 Phosphorus (2.5 - 4.5 mg/dL) 3.3 Magnesium (1.6 - 2.3 mg/dL) 2.3 Total Bilirubin (0.2 - 1.3 mg/dL) 1.9 H Direct Bilirubin (< 0.4 mg/dL) 1.3 H AST (17 - 59 U/L) 82 H ALT (21 - 72 U/L) 36 Albumin (3.5 - 5.0 g/dL) 2.6 L Hematology CBC w Diff NO MAN DIFF REQ WBC (4.8 - 10.8 /CUMM) 9.1 RBC (4.70 - 6.10 /CUMM) 3.31 L Hgb (14.0 - 18.0 G/DL) 10.6 L Hct (42 - 52 %) 32.2 L MCV (80.0 - 94.0 FL) 97.2 H MCH (27.0 - 31.0 PG) 32.1 H RDW (11.5 - 14.5 %) 15.7 H Plt Count (130 - 400 /CUMM) 176 MPV (7.4 - 10.4 FL) 9.4 Gran % (42.2 - 75.2 %) 69.1 Lymphocytes % (20.5 - 51.1 %) 10.9 L Monocytes % (1.7 - 9.3 %) 18.6 H Eosinophils % (0 - 5 %) 0.9 Basophils % (0.0 - 2.0 %) 0.5 PUBS MCHC (33.0 - 37.0 G/DL) 33.1 Immunology Absolute Granulocytes (1.4 - 6.5 /CUMM) 6.3 Absolute Lymphocytes (1.2 - 3.4 /CUMM) 1.0 L Absolute Monocytes (0.10 - 0.60 /CUMM) 1.7 H Absolute Eosinophils (0.0 - 0.7 /CUMM) 0.1 Absolute Basophils (0.0 - 0.2 /CUMM) 0 Last 24 Hours of Garcia Results: No recent cultures Recent Imaging Studies: Chest x-ray April 30 right lower lobe opacity without significant change from previous film CT of the chest, abdomen and pelvis April 29 reveals a moderate right-sided and small left-sided freely layering pleural effusions; complete collapse and consolidation of the right lower lobe and lesser degrees of consolidation and volume loss in the other lobes; hepatosplenomegaly; decreased ascites compared to previous study Assessment/Plan Impression: Overall stable, though with increased agitation overnight and with persistent low-grade fevers on Meropenem for polymicrobial peritonitis now 8 days status post laparoscopic Clint plication of a perforated duodenal ulcer, with CT scan negative for any evidence of an abscess. The right pleural effusion is likely sympathetic or related to fluid overload, with empyema unlikely, but a thoracentesis, which can be diagnostic and therapeutic, is scheduled for today. His renal function has improved, with creatinine back to baseline. Suggestion: 1. Await right thoracentesis 2. If pleural fluid does not suggest any infection, would discontinue Meropenem and follow off antibiotics
--- NOTE | 2016-04-30 10:56 | NUR ---
0800: RECEIVED PT IN BED. PT DROWSY/AROUSABLE, PULLING AT RESTRAINTS, SQUIRMING AROUND IN THE BED. OPENS EYES, UNABLE TO FOLLOW COMMANDS OR TRACK WITH EYES. SAS 5. PT ON ATIVAN GTT AT 6MG/HR. VENTED, #8 TAPED TO THE LEFT AT 24CM. SETTINGS AC-24 550/40%/5. LUNGS CLEAR IN THE UPPER LOBES, DIMINISHED AT THE BASES. NO DISTRESS. NSR ON MONITOR, 60'S. AFEBRILE. B/P 90-100'S/50'S MANUALLY. NPO. NGT TO RIGHT NARE, TAPED AT 60CM. CONNECT TO LOW WALL SUCTION, NGT TO BE ON SUCTION FOR 2 HOURS, OFF FOR 2 HOURS. OUTPUT GREEN. ABDOMEN D/S. +BS. 2 LAP SITES AND 3 CONNIE DRAINS. DRESSINGS CHANGED, SERROUS OUTPUT FROM DRAINS. ALPS IN PLACE. NO EDEMA. DTI TO LOWER RIGHT SCAPULA. NIHARIKA PICC IN PLACE, DRESSING INTACT. +BLOOD RETURN. TPN @ 91.7, LIPIDS @ 14.6 RUNNING VIA RYAN PORT ON PICC. NS @ 100, ATIVAN @ 60ML/HR VIA WHITE PORT. CVP 17, CONNECTED TO RED PORT ON PICC LINE, ZEROED. IV DILAUDID GIVEN FOR FLACC SCORE OF 5. STERLING IN PLACE, DRAINING PATRICK COLORED URINE. SISTER AT BEDSIDE. PLAN FOR HEAD CT AND THORACENTESIS. WILL MONITOR.
--- NOTE | 2016-04-30 11:05 | NUR ---
1000: VENT SETTINGS CHANGED BY RT, NEW SETTINGS AC-18, 550/40%/5. SAT REMAINS STABLE 95-96%. SAS 4 AT THIS TIME. ATIVAN GTT REMAINS AT 6MG/HR. WILL MONITOR.
[2016-04-30 12:00] VITALS: BP 108/60
--- NOTE | 2016-04-30 12:46 | CT SCAN REPORT ---
EXAMINATION: CT HEAD WITHOUT CONTRAST CLINICAL INFORMATION: Agitated and altered mental status, assess for cerebral edema. COMPARISON: 10/12/2015 TECHNIQUE: Contiguous axial imaging was performed from the skull base to vertex without intravenous administration of contrast. DLP: 2051.73 mGy-cm. FINDINGS: There is no evidence of acute intracranial hemorrhage or territorial infarction. No abnormal mass effect or midline shift is seen. Wheat to white matter differentiation is well preserved. No extra-axial fluid collections are identified. The ventricles are normal in size. There is no abnormal attenuation within the brain parenchyma. The osseous structures and soft tissues are normal. Mucosal thickening/fluid in the right greater than left maxillary sinuses, the remaining paranasal sinuses are clear. IMPRESSION: No acute intracranial pathology.
--- NOTE | 2016-04-30 12:51 | NUR ---
PT TO AND FROM CT SCAN WITH TRANSPORT, RT AND THIS RN WITH NO ISSUES.
--- NOTE | 2016-04-30 14:07 | ULTRASOUND REPORT ---
PROCEDURE: ULTRASOUND-GUIDED THORACENTESIS, ABORTED. INDICATION: Right-sided pleural effusion, right lower lobe collapse. SPECIMEN: None. ACCESS: None. REQUESTING PRACTITIONER: Shital Freed MD CONSENT: Informed consent was obtained from the patient's HCP prior to the procedure. During this process, the procedure and potential alternatives were explained along with the intended outcome and benefits. The risks of the procedure, including the possibility of an unsuccessful procedure as well as the risk of not doing the procedure were discussed. The patient was given the opportunity to ask any questions regarding the procedure and appeared competent to make medical decisions. A signed consent form which documents this discussion was placed in the medical record. A timeout procedure was performed. Ultrasound images of the right thorax were obtained. This showed only trace/small pleural effusion, deemed not safe to access for thoracentesis. The procedure was aborted. Images were permanently saved to the record. IMPRESSION: Trace/small right pleural effusion, not enough fluid to safely access for thoracentesis. If respiratory status remains poor, consider repeat ultrasound to assess for enough fluid to perform diagnostic and therapeutic thoracentesis. Findings were discussed with Dr. Leandra Pascal at the time of the exam.
[2016-04-30 16:00] VITALS: BP 102/60
--- NOTE | 2016-04-30 16:48 | NUR ---
EEG IN PROGRESS. PT GIVEN 2MG IV DILAUDID FOR FLACC SCORE OF 7. SAS 5 AT THIS TIME. ATIVAN GTT REMAINS AT 6MG/HR. PO LACTULOSE GIVEN VIA NGT, CLAMPED AT THIS TIME.
--- NOTE | 2016-04-30 18:15 | NUR ---
AT 1630 INSTILLED 140 ML INTO NGT FOR LACTULOSE ADMINISTRATION. NGT CLAMPED FROM 1630 TO 1816. ONCE NGT TURNED BACK TO LOW WALL SUCTION APPROXIMATELY 60ML OF CLEAR/GREEN FLUID SUCTIONED OUT OF STOMACH. PT IS NOT TOLERATING ANYTHING THRU NGT AT THIS TIME.
[2016-04-30 18:54] LABS: ABSOLUTE BASOPHIL COUNT 0 /CUMM (0.0-0.2); ABSOLUTE EOSINOPHIL COUNT 0.1 /CUMM (0.0-0.7); ABSOLUTE GRANULOCYTE CT 6.9 /CUMM (1.4-6.5); ABSOLUTE LYMPH COUNT 0.6 /CUMM (1.2-3.4); ABSOLUTE MONOCYTE COUNT 1.4 /CUMM (0.10-0.60); BASOPHIL % 0.4 % (0.0-2.0); EOSINOPHIL % 1.2 % (0-5); GRANULOCYTE % 76.3 % (42.2-75.2); HEMATOCRIT 27.5 % (42-52); MEAN CORPUSCULAR HGB 31.7 PG (27.0-31.0); MEAN CORPUSCULAR HGB CONC 32.5 G/DL (33.0-37.0); MEAN CORPUSCULAR VOLUME 97.4 FL (80.0-94.0); MEAN PLATELET VOLUME 9.3 FL (7.4-10.4); PLATELET COUNT 181 /CUMM (130-400); RBC DISTRIBUTION WIDTH 16.3 % (11.5-14.5); RED BLOOD CELL CT 2.82 /CUMM (4.70-6.10); WHITE BLOOD CELL COUNT 9.1 /CUMM (4.8-10.8)
--- NOTE | 2016-04-30 19:15 | NUR ---
SAS 3. ATIVAN GTT TURNED DOWN TO 5MG/HR WILL MONITOR. INFORMED FAMILY TO NOT STIMULATE PT WE ARE TRYING TO SLOWLY WEAN HIM OFF THE ATIVAN AND LESS STIMULATION IS BEST TO KEEP HIM CALM DURING THIS PROCESS. FAMILY IN AGREEMENT.
[2016-04-30 20:00] VITALS: BP 138/78
--- NOTE | 2016-04-30 21:12 | ELECTROENCEPHALOGRAM REPORT ---
Electroencephalogram Report ELECTROENCEPHALOGRAM RESULTS Date of service: 04/30/16 Ordering Provider: HOTEL ASSOCIATE: Aaron EEG NUMBER: [id number] TEST UTILIZES: Test Utilizes a 10-20 system, 21 lead, 18 channel digital recording. PERTINENT HX/PHYSICAL/NEURO FINDINGS/CLINICAL DIA50 year old male with ascites in ICU and changes in mental status. R/o non- convulsive status. MEDICATIONS: Ativan INTERPRETATION: The recording demonstrates very low amplitude in the range of 5-10 microvolts in all leads. There is ample artifacts including movement, muscles and drip artifact. There is slowing seen diffusely to theta range rhythms. There are no paroxysmal sharps or spikes. The posterior dominant rhythm is indiscernible. IMPRESSION: An abnormal EEG due to generalized slowing and very low amplitudes suggestive of diffuse cerebral dysfunction. No suggestion of electrographic seizures.
[2016-04-30 22:58] LABS: ABSOLUTE BASOPHIL COUNT 0 /CUMM (0.0-0.2); ABSOLUTE EOSINOPHIL COUNT 0.1 /CUMM (0.0-0.7); ABSOLUTE GRANULOCYTE CT 7.2 /CUMM (1.4-6.5); ABSOLUTE LYMPH COUNT 0.7 /CUMM (1.2-3.4); ABSOLUTE MONOCYTE COUNT 1.5 /CUMM (0.10-0.60); BASOPHIL % 0.4 % (0.0-2.0); GRANULOCYTE % 75.9 % (42.2-75.2); HEMATOCRIT 27.6 % (42-52); MEAN CORPUSCULAR HGB 31.3 PG (27.0-31.0); MEAN PLATELET VOLUME 9.6 FL (7.4-10.4); PLATELET COUNT 178 /CUMM (130-400); RBC DISTRIBUTION WIDTH 16.1 % (11.5-14.5); RED BLOOD CELL CT 2.82 /CUMM (4.70-6.10); WHITE BLOOD CELL COUNT 9.5 /CUMM (4.8-10.8)
[2016-05-01] VITALS (7 sets, daily range): BP systolic 88–118; BP diastolic 48–68
[2016-05-01 05:02] LABS: ABSOLUTE BASOPHIL COUNT 0 /CUMM (0.0-0.2); ABSOLUTE EOSINOPHIL COUNT 0.1 /CUMM (0.0-0.7); ABSOLUTE GRANULOCYTE CT 8.2 /CUMM (1.4-6.5); ABSOLUTE LYMPH COUNT 0.9 /CUMM (1.2-3.4); ABSOLUTE MONOCYTE COUNT 1.3 /CUMM (0.10-0.60); BASOPHIL % 0.2 % (0.0-2.0); EOSINOPHIL % 1.2 % (0-5); GRANULOCYTE % 78.1 % (42.2-75.2); MEAN CORPUSCULAR HGB 31.5 PG (27.0-31.0); MEAN CORPUSCULAR HGB CONC 32.1 G/DL (33.0-37.0); MEAN CORPUSCULAR VOLUME 98.1 FL (80.0-94.0); MEAN PLATELET VOLUME 9.5 FL (7.4-10.4); PLATELET COUNT 185 /CUMM (130-400); RBC DISTRIBUTION WIDTH 15.8 % (11.5-14.5); RED BLOOD CELL CT 2.86 /CUMM (4.70-6.10); WHITE BLOOD CELL COUNT 10.4 /CUMM (4.8-10.8)
--- NOTE | 2016-05-01 06:50 | PN- General Surgery ---
See Addendum Subjective Subjective: s/p em patch for duodenal perf remains intubated , sedated, but responsive to name and bed changes no pressors at this time attempted to give lactulose yestereday which did not absorb after suction Objective Vital Signs and I&Os Vital Signs Date Time Temp Pulse Resp B/P Pulse O2 O2 Flow FiO2 Ox Delivery Rate 05/01 0551 40 05/01 0400 97.0 72 18 118/68 05/01 0400 95 Ventilator 40% 05/01 0359 40 05/01 0103 40 05/01 0000 96.5 62 18 110/62 05/01 0000 96 Ventilator 40% 05/01 0000 96.5 62 19 110/62 96 Ventilator 40% 04/30 2200 40 04/30 2000 97.5 88 18 138/78 04/30 2000 95 Ventilator 40% 04/30 1904 40 04/30 1626 40 04/30 1600 96.9 62 18 102/60 04/30 1600 97 Ventilator 40% 04/30 1600 96.9 62 18 102/60 97 Ventilator 40% 04/30 1330 40 04/30 1200 99.0 88 23 108/60 04/30 1200 95 Ventilator 40% 04/30 1010 40 04/30 0840 40 04/30 0800 97.6 69 24 100/54 04/30 0800 99 Ventilator 40% 04/30 0800 97.6 69 24 100/54 99 Ventilator 40% Intake & Output 05/01 0800 12 0000 04/30 1600 04/30 0800 04/30 0000 04/29 1600 Intake Total 2507 2471.0 2188.0 1799.0 1801.0 Output Total 1705 1500 1770 1710 1400 Balance 802 971.0 418.0 89.0 401.0 Intake, IV 2277 1510 1370 929 950 Intake, Lipid 113.0 112.0 134.0 117.0 Intake, Oral 0 0 Intake, Other 230 140 Intake, 708 706 736 734 TPN/PPN Number 0 0 0 Bowel Movements Output, 7143 369 3496 1050 850 Drainage Output, 200 200 140 50 Gastric Drainage Output, Urine 325 460 505 660 500 Physical Exam: cv: rrr lungs: clear abd: obese wounds c/d/i continued serous drainage(ascitis) around port sites +bs ext: pitting edema, warm, pulses intact Assessment/Plan Assessment/Plan continued sedation to withdrawal plan advance tube feeds when cleared by icu team cont drsg changes as needed cont tpn until diet advanced
--- NOTE | 2016-05-01 07:30 | NUR ---
Late entry from 04/30/16: Consult received for dietary instruction. Spoke with Dr Freed 04/30/16 about consult. wanted to let RD know that TF would not be able to be started as pt not tolerating anything through NGT at this time. Please refer to nutrition f/u notes when able to start TF. Thank you for consult.
--- NOTE | 2016-05-01 08:08 | PN- Resident CRCU ---
Subjective HPI/CRCU Issues: patient is a 50 y/o Male, with a significant past medical history of hypertension, hyperlipidemia, GERD, diverticulosis, degenerative joint disease, a vascular necrosis status post hip replacement, fatty liver disease, alcohol abuse presented with chronic alcohol abuse, nausea, vomting, abd distension and pain which got worse so he presented to ED on 04/21/2016. On Evaluation CT scan showed pneumoperitoneum, moderate ascites.On examination the abdomen was distended and tender to palpation , so diagnostic paracentesis was done which showed WBC 9504, RBC 2156. Because of the perforation, It seems that patient developed the secondary bacterial peritonitis. We took surgical consultation. The next couple of hours patient went into septicemia and shock. So he was given IV fluids and prophylactic antibiotics including ceftriaxone metronidazole and vancomycin. We catheterized the patient. Despite of these measures his blood pressure going down , so we took surgical consultation and plan for emergent surgery. Meantime, we intubated the patient and put him on mechanical ventilation(assist control mode, TV-500, respiratory rate 28, PEEP 5, FiO2 100%), triple-lumen catheter was placed in the right side of jugular vein. Patients blood pressure was continuosly going down, so we started him on Levothroid/vasopressin. We also started him on fentanyl and propofol drip. The culture of the ascites fluid came back positive for gram-negative. We took the consult from infectious disease specialist/Abdullahi Osuna MD. He advised to change ceftriaxone to ceftazidime and advised to wait for sensitivities report. Patient went to surgery on 04/22/2016. In postop, His blood pressure was 119/62. He is improving after surgery. When blood pressure remained maintained to normal , we stopped all the pressures and also slowly stopped sedation. We tried weaning multiple times. In between the patient started having fever of 100.2, awaited. CT scan of chest/abdomen/pelvis on 04/29/2016 which showed moderate right-sided pleural effusion and consolidation and collapse of right lower lobe. CRCU issues - Perforated duodenal ulcer s/p exploratory laparoscopy with grahm plication of duodenal ulcer Secondary bacterial Peritonitis Septic shock with MODS/ MATT improving/ Lactic acidosis improving/ Alcoholic hepatitis with transaminitis Ascitis Sigmoid Diverticulitis Hypertension Hyperlipidemia Morbidly Obese 24 Hour Events: Overnight, It was uneventful. Objective Vital Signs & I&O Last 8 Hrs of Vitals and I&O: Temperature 97.0 Pulse 72 Respiratory rate 18 Blood pressure 118/68 SPO2 96% Exam General Appearance: well developed/nourished, awake, intubated, mild distress, obese Head: atraumatic, normal appearance Ears, Nose, Throat: patient is having endotracheal and NG tube in place Neck: normal inspection, supple Respiratory: decreased air entry on right lung base, Cardiovascular: regular rate/rhythm, edema Gastrointestinal: soft, non-tender, bowel sounds are diminished, all [address] Extremities: swelling Weaning Parameters NIF: 17 Minute Volume: 5.09 Resp rate: 19 Vt: 150 Heart Rate: 84 Weaning Schedule Start Time: 1105 Minute Volume: 10.3 Resp Rate: 18 Vt: 621 Heart Rate: 83 End Time: 1107 Minute Volume: 0 Resp Rate: 0 Vt: 0 Heart Rate: 83 Current Medications: Current Medications Sig/Roberto Start time Last Medication Dose Route Stop Time Status Admin Acetylcysteine 2 ML BID 04/30 2200 AC 05/02 INH 0801 Albuterol Sulfate 3 ML EVERY 4 HRS/AWAKE 05/01 2000 AC 05/02 INH 1125 Albuterol Sulfate 3 ML EVERY 4 HRS/AWAKE .. 04/30 1436 DC 05/01 INH 05/01 195 1635 Fat Emulsion 350 ML Q24H 05/01 190 AC 05/01 Intravenous IV 05/02 185 2035 Fat Emulsion 350 ML Q24H 04/30 190 DC 04/30 Intravenous IV 05/01 1852014 Heparin Sodium 5,000 UNIT Q8 04/24 1400 AC 05/02 (Porcine) SC 1352 Hydromorphone HCl 2 MG Q6P PRN 04/22 0930 AC 05/02 IV 0336 Lactulose 20 GM TID 04/30 1000 AC 05/01 PO 2329 Lorazepam 100 MG Q24H 05/01 0400 AC 05/02 Dextrose/Water 1,000 ML IV 0655 Lorazepam 100 MG Q8H 04/[address] 05/01 Dextrose/Water 1,000 ML IV 0600 Lorazepam 2 MG Q1 PRN 04/29 1615 AC 05/01 IV 2326 Ondansetron HCl 4 MG Q8P PRN 04/22 0600 IV Pantoprazole Sodium 40 MG BID 04/22 2200 AC 05/02 IV 0955 Sodium Chloride 500 ML BOLUS ONE 05/01 1915 DC 05/01 IV 05/01 2014 1900 Sodium Chloride 1,000 ML ONCE ONE 05/01 1200 DC 05/01 IV 05/01 1839 1159 Sodium Chloride 1,000 ML Q10H 05/01 1014 AC 05/02 IV 1352 Thiamine HCl 500 MG Q8H 04/29 0900 DC 05/02 Sodium Chloride 250 ML IV 05/02 0159 0200 Total Parenteral 1 UNIT Q24H 05/01 1900 AC 05/01 Nutrition IV 05/02 Total Parenteral 1 UNIT ONE 04/30 190 DC 04/30 Nutrition IV 05/01 Impression/Plan Impression/Problem List Impression: Impression and Plan - Patient is awake, following the commands. He is off the levofed/fantanyl.he is on low-dose Ativan drip. POD-9 Ventilator -D9 right sided PICC line - D4, CONNIE drains-3 - D9 Foleys cathter -D9 ABG - pH-7.33, PCO2 33, PO2 81, bicarbonate 17 Respiratory * According to Dr. Arroyo, We'll keep the CVP of 12 and BP > [address] Balderas says keep SAS 2-3. * If Blood pressure remained below, then we will start patient on low-dose levofed. Currently he is off Levofed. * He is on ventilator, Ventilator Settings is -AC, TV-550, IPAP -24, RR-18, PEEP -5, Fio2 45. * There is decreased air entry on the right middle and lower lobe * 05/01/2016 Patient was having right sided pleural effusion. On ultrasound it was found,it is very mild and the radiologist says that there is more chances of pneumothorax, even If they try even for diagnostic purposes.So it was decided not to do a thoracocentesis Neurology * Although patient is awake but responding to commands.We were suspecting Wernicke's encephalopathy. So we gave high dose thiamine for 9 days * We did CT head which doent showed any intracranial pathology. * We also checked for serum ammonia which come back to 45 (04/29/2016) * Patient is also in alcohol witdrawl, so we will continue ativan drip. Infectious * Ascitic fluids is growing -enterobacter cloacae and alpha strept. * We will follow ID rcms * Discussed with Dr Ousna, patient doesnt need antibiotics. We will stop Meopenem 1g iv 8hrly, as there is no focus and patient already had 7 days course of antibiotics.04/30/2016 * To rule out the source of infection. We orderd CT chest/abdomen/pelvis, which showed moderate right-sided pleural effusion with right lower lobe consolidation and collapse. Hematology - * Hb-9, * We will suplement MultiVit, Thiamine, folic acid. Cardiology * Patient is hemodynamically stable Gastroenterology * According to the surgeons, we can try NG tube, TPN, weaning trial, obtaining, GI prophylaxis, monitoring CONNIE output. * There are 3 CONNIE drains * Abdoman is soft, there are mild bowel sounds on examiantion * We will do strict Intake output Charting * We will follow GI rcms * We stopped albumin on 04/29/2016. * We started giving lactulose from NG tube but residual was >100cc. Urology * BUN -57 Cr-0.9 * We'll monitor it regularly * Urine output in last 24 hrs is cc * We will continue IV fluids -100 ml/hrs * Strict I/O charting 1125 Endocrine * TSH -8.9, T4 -1.85 * It seems patient is having Sick Euthyroid syndrome. * We discussed with endocrinology. * We will repeat TFT after patient get recovered. Skin * There are multiple dressings on the skin, abdomen for drain, * PICC line is on the right-hand Diet -continue TPN as advised by dietitian. DVT prophylaxis -ALPS/ Heparin CODE STATUS-full code Problem List: 1. Pleural effusion 2. MATT (acute kidney injury) 3. At risk for ventilator-associated event 4. Ascites 5. Metabolic alkalosis Pain Ratin Tomorrow's Labs & Rationales: cbc,icu bundle,cxr,abg Plan DVT/Prophylaxis: mechanical
--- NOTE | 2016-05-01 09:20 | PN- CRCU ---
Subjective HPI/Critical Care Issues: The patient remains intubated and sedated. He remains on 6 g of Ativan noting that he becomes agitated when the dose is turned down. He had a head CT that showed no acute abnormality. EEG showed no seizure activity. Ultrasound-guided thoracentesis was attempted however not enough fluid was present to safely perform the procedure. His respiratory status remaines stable on 40%. The patient is afebrile and being monitored off antibiotics. He was unable to tolerate lactulose yesterday and tube feeds were therefore not started. Objective Current Medications: Current Medications Sig/Roberto Start time Last Medication Dose Route Stop Time Status Admin Acetylcysteine 2 ML BID 04/30 2200 AC 05/01 INH 0831 Albuterol Sulfate 3 ML EVERY 4 HRS/AWAKE .. 04/30 1436 AC 05/01 INH 0830 Albuterol Sulfate 3 ML Q4P PRN 04/22 1145 DC 04/30 INH 1352 Cyanocobalamin/ 1 BAG DAILY 04/30 1448 CAN Thiamine/Pyridoxine IV Dextrose/Water 1,000 ML Fat Emulsion 350 ML Q24H 04/30 1900 AC 04/30 Intravenous IV 05/01 1859 2014 Fat Emulsion 350 ML Q24H 04/29 1900 DC 04/29 Intravenous IV 04/30 1852006 Heparin Sodium 5,000 UNIT Q8 04/24 1400 AC 05/01 (Porcine) SC 0611 Hydromorphone HCl 2 MG Q6P PRN 04/22 0930 AC 05/01 IV 0000 Lactulose 20 GM TID 04/30 1000 AC 04/30 PO 2251 Lorazepam 100 MG Q8H 04/30 1815 AC 05/01 Dextrose/Water 1,000 ML IV 0600 Lorazepam 100 MG Q16H 04/30 0400 DC 04/30 Dextrose/Water 1,000 ML IV 0521 Lorazepam 2 MG Q1 PRN 04/29 1615 AC 04/29 IV 2356 Meropenem 1 GM IQ8 04/23 1600 DC 04/30 IV 0852 Multivitamins 1 JORDAN DAILY 04/30 1700 DC Folic Acid 1 MG IV Dextrose/Water 1,000 ML Ondansetron HCl 4 MG Q8P PRN 04/22 0600 AC IV Pantoprazole Sodium 40 MG BID 04/22 2200 AC 04/30 IV 2251 Sodium Chloride 1,000 ML Q10H 12/07 1515 04/30 IV 2302 Sodium Chloride 1,000 ML Q8H 04/29 1701 DC 04/30 IV 1255 Thiamine HCl 500 MG Q8H 04/29 0900 05/01 Sodium Chloride 250 ML IV 05/02 0159 0041 Total Parenteral 1 UNIT ONE 04/30 1900 04/30 Nutrition IV 05/01 Vital Signs & I&O Last 24 Hrs of Vitals and I&O: Vital Signs Date Time Temp Pulse Resp B/P Pulse O2 O2 Flow FiO2 Ox Delivery Rate 05/01 0835 40 05/01 0551 40 05/01 0400 97.0 72 18 118/68 05/01 0400 95 Ventilator 40% 05/01 0359 40 05/01 0103 40 05/01 0000 96.5 62 18 110/62 05/01 0000 96 Ventilator 40% 05/01 0000 96.5 62 19 110/62 96 Ventilator 40% 04/30 2200 40 04/30 2000 97.5 88 18 138/78 04/30 2000 95 Ventilator 40% 04/30 1904 40 04/30 1626 40 04/30 1600 96.9 62 18 102/60 04/30 1600 97 Ventilator 40% 04/30 1600 96.9 62 18 102/60 97 Ventilator 40% 04/30 1330 40 04/30 1200 99.0 88 23 108/60 04/30 1200 95 Ventilator 40% 04/30 1010 40 Intake & Output 05/01 1600 05/01 0800 12/ 0000 Intake Total 2514.0 2506.9 Output Total 1125 1705 Balance 1389.0 801.9 Intake, IV 1633 1482.3 Intake, Lipid 117.0 109.0 Intake, Oral 0 0 Intake, Other 30 230 Intake, 734 685.6 TPN/PPN Intake, Tube 0 Feeding Intake, Tube 0 Irrigant Number 0 0 Bowel Movements Output, 625 1180 Drainage Output, 150 200 Gastric Drainage Output, Urine 350 325 Exam General Appearance: intubated, opens eyes but not following commands Head: atraumatic Neck: supple Respiratory: no respiratory distress, bilateral anterior rhonchi, the lungs expand symmetrically and the trachea is midline Cardiovascular: regular rate/rhythm, tachycardia, S1 and S2 heard Abdomen: CONNIE drains in place, distended, surgical dressings in place, slight increase in bowel sounds Extremities: warm and dry Skin: no cyanosis or edema Results Last 24 Hrs of Lab Results: Laboratory Tests 05/01/16 0510: pH 7.33 L, pCO2 33 L, pO2 81, HCO3 17 L, ABG O2 Sat (Measured) 95.0 L, P-50 (Temp Corrected) Y, Carboxyhemoglobin 0.3 L, O2 Concentration % 40%, Temperature 97.0, Respiration Rate 18, O2 Delivery Method ESPRIT, Vent Mode AC, Expiratory Pressure 5, Tidal Volume 550, Phlebotomy Draw Site LEFT RADIAL 05/01/16 0427: Anion Gap 8, Estimated GFR > 60, Glucose 156 H, Calcium 8.4, Phosphorus 4.9 H, Magnesium 2.3, Total Bilirubin 1.5 H, AST 72 H, ALT 37, Albumin 2.2 L, CBC w Diff NO MAN DIFF REQ, RBC 2.86 L, MCV 98.1 H, MCH 31.5 H, RDW 15.8 H, MPV 9.5, Gran % 78.1 H, Lymphocytes % 8.5 L, Monocytes % 12.0 H, Eosinophils % 1.2, Basophils % 0.2, Absolute Granulocytes 8.2 H, Absolute Lymphocytes 0.9 L, Absolute Monocytes 1.3 H, Absolute Eosinophils 0.1, Absolute Basophils 0, PUBS MCHC 32.1 L 04/30/16 2201: CBC w Diff NO MAN DIFF REQ, RBC 2.82 L, MCV 98.0 H, MCH 31.3 H, RDW 16.1 H, MPV 9.6, Gran % 75.9 H, Lymphocytes % 7.1 L, Monocytes % 15.6 H, Eosinophils % 1.0, Basophils % 0.4, Absolute Granulocytes 7.2 H, Absolute Lymphocytes 0.7 L, Absolute Monocytes 1.5 H, Absolute Eosinophils 0.1, Absolute Basophils 0, PUBS MCHC 32.0 L 04/30/16 1810: CBC w Diff NO MAN DIFF REQ, RBC 2.82 L, MCV 97.4 H, MCH 31.7 H, RDW 16.3 H, MPV 9.3, Gran % 76.3 H, Lymphocytes % 6.8 L, Monocytes % 15.3 H, Eosinophils % 1.2, Basophils % 0.4, Absolute Granulocytes 6.9 H, Absolute Lymphocytes 0.6 L, Absolute Monocytes 1.4 H, Absolute Eosinophils 0.1, Absolute Basophils 0, PUBS MCHC 32.5 L Diagnostic Data CXR Findings: Pending. Impression/Plan Impression/Plan Impression/Plan: 1. Perforated viscus with multisystem organ failure and septic shock, post op day 9 perforated duodenal ulcer repair. 2. Acute kidney injury - improving. 3. Alcoholic hepatitis with improving bilirubin. 4. Alcohol withdrawal with increased agitation requiring ativan for sedation. 5. Macrocytic anemia in the setting of alcohol use, no evidence of active bleeding. 6. Deep tissue injury - right scapula area. 7. Hyperchloremia, likely from TPN. 8. Alcohol dependence/abuse, ETOH withdrawl. 9. Encephalopathy - hepatic? metabolic? subclinical seizures? Recommendations: * Attempt to wean Ativan down for an SAS of 3-4. * Increased respiratory rate to 22. No need for repeat ABG following the change. * Monitor CIWA scores and for evidence of withdrawal. * Try Dulcolax suppository today. * Continue to attempt to give lactulose. Monitor for residuals. * Monitor off antibiotics as per ID. * Change IVFs to 1/2 NS. * Complete course of high-dose thiamine. * Continue TPN, hold off on tube feeds until bowel function improves. MVI, thiamine, folate in TPN. * Will begin weaning trials when the patient is more awake and alert. * Continue ventilator bundle with DVT and GI prophylaxis. * Skin care protocol, off load deep tissue injury area. * Continue all supportive care. * Patient's family updated at bedside. TTS 45
--- NOTE | 2016-05-01 10:59 | PN- Infect Dx ---
Subjective Subjective: Afebrile. He has been intermittently responsive but unable to relay any specific complaints Objective Last 24 Hrs of Vital Signs/I&O Vital Signs Date Time Temp Pulse Resp B/P Pulse O2 O2 Flow FiO2 Ox Delivery Rate 05/01 835 40 05/01 0551 40 05/01 0400 97.0 72 18 118/68 05/01 0400 95 Ventilator 40% 05/01 0359 40 05/01 0103 40 05/01 0000 96.5 62 18 110/62 12 0000 96 Ventilator 40% 05/01 0000 96.5 62 19 110/62 96 Ventilator 40% 04/30 2200 40 04/30 2000 97.5 88 18 138/78 04/30 2000 95 Ventilator 40% 04/30 1904 40 04/30 1626 40 04/30 1600 96.9 62 18 102/60 04/30 1600 97 Ventilator 40% 04/30 1600 96.9 62 18 102/60 97 Ventilator 40% 04/30 1330 40 04/30 1200 99.0 88 23 108/60 04/30 1200 95 Ventilator 40% Intake & Output 05/01 1600 05/01 0800 05/01 0000 Intake Total 2514.0 2506.9 Output Total 1125 1705 Balance 1389.0 801.9 Intake, IV 1633 1482.3 Intake, Lipid 117.0 109.0 Intake, Oral 0 0 Intake, Other 30 230 Intake, 734 685.6 TPN/PPN Intake, Tube 0 Feeding Intake, Tube 0 Irrigant Number 0 0 Bowel Movements Output, 625 1180 Drainage Output, 150 200 Gastric Drainage Output, Urine 350 325 Physical Exam Other Physical Findings: He is arousable but not following commands Lungs clear Heart regular rhythm with no murmur Abdomen decreased distention, questionable tenderness to palpation, with positive bowel sounds; 3 CONNIE drains remain in place with a significant amount of serous drainage Extremities no cyanosis, clubbing or edema; PICC in the right upper extremity with no inflammation at the site Ann catheter remains in place Results Last 24 Hours of Lab Results: Laboratory Tests 05/01 05/01 0510 0427 Blood Gas pH (7.35 - 7.45 PH) 7.33 L pCO2 (35 - 45 TORR) 33 L pO2 (80 - 100 TORR) 81 HCO3 (21 - 28 MEQ/L) 17 L ABG O2 Sat (Measured) (>96.0 %) 95.0 L P-50 (Temp Corrected) Y Carboxyhemoglobin (1.5 - 5.0 %) 0.3 L O2 Concentration % 40% Temperature (97.0 - 100.0 FARH) 97.0 Respiration Rate (BPM) 18 O2 Delivery Method ESPRIT Vent Mode AC Expiratory Pressure (CMH2O/P) 5 Tidal Volume (CC) 550 Chemistry Sodium (137 - 145 mmol/L) 139 Potassium (3.5 - 5.1 mmol/L) 4.6 Chloride (98 - 107 mmol/L) 112 H Carbon Dioxide (22 - 30 mmol/L) 19 L Anion Gap (5 - 16) 8 BUN (9 - 20 mg/dL) 57 H Creatinine (0.7 - 1.2 mg/dL) 0.9 Estimated GFR (>60 ml/min) > 60 Glucose (65 - 99 mg/dL) 156 H Calcium (8.4 - 10.2 mg/dL) 8.4 Phosphorus (2.5 - 4.5 mg/dL) 4.9 H Magnesium (1.6 - 2.3 mg/dL) 2.3 Total Bilirubin (0.2 - 1.3 mg/dL) 1.5 H AST (17 - 59 U/L) 72 H ALT (21 - 72 U/L) 37 Albumin (3.5 - 5.0 g/dL) 2.2 L Hematology CBC w Diff NO MAN DIFF REQ WBC (4.8 - 10.8 /CUMM) 10.4 RBC (4.70 - 6.10 /CUMM) 2.86 L Hgb (14.0 - 18.0 G/DL) 9.0 L Hct (42 - 52 %) 28.0 L MCV (80.0 - 94.0 FL) 98.1 H MCH (27.0 - 31.0 PG) 31.5 H RDW (11.5 - 14.5 %) 15.8 H Plt Count (130 - 400 /CUMM) 185 MPV (7.4 - 10.4 FL) 9.5 Gran % (42.2 - 75.2 %) 78.1 H Lymphocytes % (20.5 - 51.1 %) 8.5 L Monocytes % (1.7 - 9.3 %) 12.0 H Eosinophils % (0 - 5 %) 1.2 Basophils % (0.0 - 2.0 %) 0.2 Absolute Granulocytes (1.4 - 6.5 /CUMM) 8.2 H Absolute Lymphocytes (1.2 - 3.4 /CUMM) 0.9 L Absolute Monocytes (0.10 - 0.60 /CUMM) 1.3 H Absolute Eosinophils (0.0 - 0.7 /CUMM) 0.1 Absolute Basophils (0.0 - 0.2 /CUMM) 0 PUBS MCHC (33.0 - 37.0 G/DL) 32.1 L Miscellaneous Phlebotomy Draw Site LEFT RADIAL 04/30 04/30 2201 1810 Hematology CBC w Diff NO MAN DIFF REQ NO MAN DIFF REQ WBC (4.8 - 10.8 /CUMM) 9.5 9.1 RBC (4.70 - 6.10 /CUMM) 2.82 L 2.82 L Hgb (14.0 - 18.0 G/DL) 8.8 L 8.9 L Hct (42 - 52 %) 27.6 L 27.5 L MCV (80.0 - 94.0 FL) 98.0 H 97.4 H MCH (27.0 - 31.0 PG) 31.3 H 31.7 H RDW (11.5 - 14.5 %) 16.1 H 16.3 H Plt Count (130 - 400 /CUMM) 178 181 MPV (7.4 - 10.4 FL) 9.6 9.3 Gran % (42.2 - 75.2 %) 75.9 H 76.3 H Lymphocytes % (20.5 - 51.1 %) 7.1 L 6.8 L Monocytes % (1.7 - 9.3 %) 15.6 H 15.3 H Eosinophils % (0 - 5 %) 1.0 1.2 Basophils % (0.0 - 2.0 %) 0.4 0.4 Absolute Granulocytes (1.4 - 6.5 /CUMM) 7.2 H 6.9 H Absolute Lymphocytes (1.2 - 3.4 /CUMM) 0.7 L 0.6 L Absolute Monocytes (0.10 - 0.60 /CUMM) 1.5 H 1.4 H Absolute Eosinophils (0.0 - 0.7 /CUMM) 0.1 0.1 Absolute Basophils (0.0 - 0.2 /CUMM) 0 0 PUBS MCHC (33.0 - 37.0 G/DL) 32.0 L 32.5 L Last 24 Hours of Garcia Results: No recent cultures Recent Imaging Studies: Chest ultrasound April 30 reveals a trace/small right pleural effusion, not felt to be enough to safely tap CT of the head April 30 no acute process Assessment/Plan Impression: Stable off antibiotics with temperatures and white blood cell count remaining normal now 9 days status post laparoscopic Clint plication of a perforated duodenal ulcer, with recent CT scan negative for any evidence of an abscess. The right pleural effusion was felt to be too small to tap; therefore no thoracentesis was performed. His renal function has normalized and respiratory status remains stable. Suggestion: 1. Continue to follow off antibiotics
--- NOTE | 2016-05-01 13:49 | RADIOLOGY REPORT ---
EXAMINATION: XR PORTABLE CHEST CLINICAL INFORMATION: Left-sided pleural. On ventilator. COMPARISON: X-ray of the chest performed 04/30/2016. TECHNIQUE: Portable view of the chest was obtained. FINDINGS: Endotracheal tube terminates 2.8 cm from the ching. The inferior extent of the gastric decompression tube is not well evaluated, due to underpenetration of the upper abdomen. Right PICC line terminates in the right cavoatrial junction. Lungs are hypoexpanded. There is atelectasis in the lower lobes with moderate-sized associated pleural effusions, unchanged from prior. Pulmonary venous congestion is likely present. Consolidation in the lung bases is possible. Soft tissue anchors are again seen in the right humeral head. IMPRESSION: 1. Endotracheal tube in good position. 2. Small amount of bilateral pleural effusions with associated lower lobe atelectasis. Superimposed consolidation is possible. 3. Pulmonary venous congestion
[2016-05-02] VITALS (8 sets, daily range): BP systolic 89–120; BP diastolic 47–80
[2016-05-02 05:22] LABS: ABSOLUTE BASOPHIL COUNT 0 /CUMM (0.0-0.2); ABSOLUTE EOSINOPHIL COUNT 0.1 /CUMM (0.0-0.7); ABSOLUTE GRANULOCYTE CT 9.2 /CUMM (1.4-6.5); ABSOLUTE LYMPH COUNT 0.6 /CUMM (1.2-3.4); BASOPHIL % 0.1 % (0.0-2.0); EOSINOPHIL % 0.7 % (0-5); GRANULOCYTE % 84.8 % (42.2-75.2); MEAN CORPUSCULAR HGB 31.8 PG (27.0-31.0); MEAN CORPUSCULAR HGB CONC 32.6 G/DL (33.0-37.0); MEAN CORPUSCULAR VOLUME 97.7 FL (80.0-94.0); MEAN PLATELET VOLUME 9.8 FL (7.4-10.4); PLATELET COUNT 168 /CUMM (130-400); RBC DISTRIBUTION WIDTH 16.2 % (11.5-14.5); RED BLOOD CELL CT 3.18 /CUMM (4.70-6.10); WHITE BLOOD CELL COUNT 10.9 /CUMM (4.8-10.8)
--- NOTE | 2016-05-02 05:57 | PN- General Surgery ---
See Addendum Subjective Subjective: The patient was seen this morning postoperatively day #11. He remains intubated and sedated. Per nursing there are no significant issues overnight. Yesterday evening we infused some dilute methylene blue via the patient's NG tube clamped for some time to see whether or not there was a continuous leak from his perforated ulcer. Early this morning he was noted that CONNIE #1 on the left had some more greenish drainage. Otherwise there was no change in patient's condition from the day prior. Objective Vital Signs and I&Os Vital Signs Date Time Temp Pulse Resp B/P Pulse O2 O2 Flow FiO2 Ox Delivery Rate 05/02 0244 40 / 0000 98.4 71 22 120/80 05/02 0000 96 Ventilator 40% 05/01 2327 40 05/01 2200 96 22 90/48 05/01 2000 98.3 96 25 101/49 05/01 2000 95 Ventilator 40% 05/01 1915 40 05/01 1626 40 05/01 1600 97.4 66 22 88/56 05/01 1600 97.4 66 22 88/56 97 Ventilator 40% 05/01 1600 94 Ventilator 40% 05/01 1353 40 05/01 1200 97.9 68 22 100/60 / 1200 93 Ventilator 40% 05/01 1126 40 05/01 0835 40 / 0800 97.4 82 18 102/50 05/01 08 97.4 82 18 102/50 97 Ventilator 40% 05/01 0800 97 Ventilator 40% Intake & Output 05/02 0800 05/02 0000 05/01 1600 05/01 0800 05/01 0000 04/30 1600 Intake Total 3832 2688.0 2514.0 2506.9 2471.0 Output Total 1640 1675 1125 1705 1500 Balance 2192 1013.0 1389.0 801.9 971.0 Intake, IV 3622 1686 1633 1482.3 1510 Intake, Lipid 124.0 117.0 109.0 113.0 Intake, Oral 0 0 Intake, Other 210 100 30 230 140 Intake, 778 734 685.6 708 TPN/PPN Intake, Tube 0 Feeding Intake, Tube 0 Irrigant Number 0 0 0 0 Bowel Movements Output, 940 871 935 1422 840 Drainage Output, 250 250 150 200 200 Gastric Drainage Output, Urine 450 475 350 325 460 Physical Exam: Gen.: Intubated and sedated Skin: Warm and dry Abdomen: Softly distended, obese, with mild serous drainage from port sites as well as from JPs and around them as well. JPs are holding suction with serous drainage in the bulb's. As noted previously a left sided CONNIE #1 has serous drainage with a greenish tinge Extremities: Bilateral lower extremities are warm, his calves are soft, and there is significant pitting edema bilaterally. Assessment/Plan Assessment/Plan Assessment: 50-year-old male status post laparoscopic Clint patch repair of perforated duodenal ulcer postoperative day #11. The patients condition remains relatively unchanged. The appearance of the greenish drainage in CONNIE bulb #1 is somewhat concerning Recommendations: Re-send drain for amylace and lipase Continue to monitor Follow-up morning laboratory studies Continue TPN Nothing by mouth and NG tube decompression GI and DVT prophylaxis Continue to monitor off IV antibiotics per ID recommendations We'll discuss findings with surgical attending Core Measures/Miscellaneous Venous Thromboembolism VTE Risk Factors: Acute medical illness, Age > 40, Obesity, Surgery VTE Contraindications: Abn Clotting Times VTE Prophylaxis Ordered Inpt Mechanical (ALPS/TEDS) VTE Diagnosis: No VTE Type: NONE VTE Confirmed by (Test): NONE Beta Terrence Is Beta Terrence a Home Med? Yes If Yes, Was This Ordered Today? No If No, Why Not? hypotension Antibiotics Is Patient on Antibiotics? No
--- NOTE | 2016-05-02 08:45 | NUR ---
REC'D THE PT ORALLY INTUBATED AND MECHANICALLY VENTILATED PER MD ORDER. PT BECOMES AGITATED WITH ANY TYPE OF CARE AND SETTLES IMMEDIATELY AFTERWARDS. REMAINS ON THE ATIVAN GTT AT 4MG/HR OR 40ML/HR INFUSING VIA THE WHITE PORT OF THE NIHARIKA PICC ALONG WITH THE 1/2NS AT 150ML/HR. SAS IS A 4. BROWN BUT DOES NOT FOLLOW COMMANDS. PT IS IN A NSR WITHOUT ECTOPY PER THE FORMAT PROOFREADER. PT HAS GENERALIZED EDEMA 1+. ABD IS DISTENDED BUT SOFT-NO BOWEL SOUNDS HEARD. NGT IN PLACE TO THE R NARE AND IS TO LWS. MINIMAL DUCKWORTH OCC BLOOD TINGED DRAINAGE NOTED. BULB TO CONNIE#2 CHANGED AT THIS TIME. SPECIMEN FROM CONNIE #1 SSENT TO THE LAB. TUBING FROM PT TO CONNIE #1 NOTED TO HAVE A GREEN TINT. THE PT HAD RECEIVED METHYLENE BLUE DOWN THE NGT ON 05/01. CONNIE#1 NOTED TO HAVE VISCOUS DK YELLOW OUTPUT. EMPTIED OF 50ML. CONNIE#2 AND CONNIE#3 DRAINING SEROUS FLUID. CONNIE#2 EMPTIED OF 300ML PRIOR TO BULB CHANGE. REMAINS ON TPN AT 91.7ML/HR AND LIPIDS AT 14.6ML/HR, INFUSING VIA THE AHN PORT OF THE NIHARIKA PICC. STERLING IN PLACE DRAINING DK PATRICK URINE.
--- NOTE | 2016-05-02 08:47 | PN- Resident CRCU ---
Subjective HPI/CRCU Issues: patient is a 50 y/o Male, with a significant past medical history of hypertension, hyperlipidemia, GERD, diverticulosis, degenerative joint disease, a vascular necrosis status post hip replacement, fatty liver disease, alcohol abuse presented with chronic alcohol abuse, nausea, vomting, abd distension and pain which got worse so he presented to ED on 04/21/2016. On Evaluation CT scan showed pneumoperitoneum, moderate ascites.On examination the abdomen was distended and tender to palpation , so diagnostic paracentesis was done which showed WBC 9504, RBC 2156. Because of the perforation, It seems that patient developed the secondary bacterial peritonitis. We took surgical consultation. The next couple of hours patient went into septicemia and shock. So he was given IV fluids and prophylactic antibiotics including ceftriaxone metronidazole and vancomycin. We catheterized the patient. Despite of these measures his blood pressure going down , so we took surgical consultation and plan for emergent surgery. Meantime, we intubated the patient and put him on mechanical ventilation(assist control mode, TV-500, respiratory rate 28, PEEP 5, FiO2 100%), triple-lumen catheter was placed in the right side of jugular vein. Patients blood pressure was continuosly going down, so we started him on Levothroid/vasopressin. We also started him on fentanyl and propofol drip. The culture of the ascites fluid came back positive for gram-negative. We took the consult from infectious disease specialist/Abdullahi Osuna MD. He advised to change ceftriaxone to ceftazidime and advised to wait for sensitivities report. Patient went to surgery on 04/22/2016. In postop, His blood pressure was 119/62. He is improving after surgery. When blood pressure remained maintained to normal , we stopped all the pressures and also slowly stopped sedation. We tried weaning multiple times. In between the patient started having fever of 100.2, awaited. CT scan of chest/abdomen/pelvis on 04/29/2016 which showed moderate right-sided pleural effusion and consolidation and collapse of right lower lobe. CRCU issues - Perforated duodenal ulcer s/p exploratory laparoscopy with grahm plication of duodenal ulcer Secondary bacterial Peritonitis Septic shock with MODS/ MATT improving/ Lactic acidosis improving/ Alcoholic hepatitis with transaminitis Ascitis Sigmoid Diverticulitis Hypertension Hyperlipidemia Morbidly Obese 24 Hour Events: In the night, there was greenish fluid in the CONNIE-1 drain. To rule out continuous leak from the site of repair,surgeons, put the methylene blue, via NG tube and clamped it. They found it is coming out through the CONNIE-1 drain. Even in the morning they found greenish fluid in the CONNIE-1 drain. We sent drain for amylase and lipase. Objective Vital Signs & I&O Last 8 Hrs of Vitals and I&O: Temperature 98.2 Pulse 88 Respiratory rate 27 Blood pressure 114/70 SPO2 95% Exam General Appearance: well developed/nourished, no apparent distress, alert, intubated, obese Head: atraumatic, normal appearance Ears, Nose, Throat: patient is intubated and NG tube in place Neck: normal inspection, supple Respiratory: normal breath sounds, chest non-tender, no respiratory distress, quiet respiration, crackles Cardiovascular: regular rate/rhythm, edema Gastrointestinal: soft, distention, there CONNIE drains are in place Extremities: normal inspection, normal capillary refill, pedal edema Weaning Parameters NIF: 17 Minute Volume: 5.09 Resp rate: 19 Vt: 150 Heart Rate: 84 Weaning Schedule Start Time: 1105 Minute Volume: 10.3 Resp Rate: 18 Vt: 621 Heart Rate: 83 End Time: 1107 Minute Volume: 0 Resp Rate: 0 Vt: 0 Heart Rate: 83 Current Medications: Current Medications Sig/Roberto Start time Last Medication Dose Route Stop Time Status Admin Acetylcysteine 2 ML BID 04/30 2200 AC 05/02 INH 0801 Albuterol Sulfate 3 ML EVERY 4 HRS/AWAKE 05/01 2000 AC 05/02 INH 1125 Albuterol Sulfate 3 ML EVERY 4 HRS/AWAKE .. 04/30 1436 DC 05/01 INH 05/01 195 1635 Fat Emulsion 350 ML Q24H 05/01 1900 AC 05/01 Intravenous IV 05/02 185 2035 Fat Emulsion 350 ML Q24H 04/30 190 DC 04/30 Intravenous IV 05/01 Heparin Sodium 5,000 UNIT Q8 04/24 1400 AC 05/02 (Porcine) SC 1352 Hydromorphone HCl 2 MG Q6P PRN 04/22 0930 AC 05/02 IV 0336 Lactulose 20 GM TID 04/30 1000 AC 05/01 PO 2329 Lorazepam 100 MG Q24H 05/01 0400 AC 05/02 Dextrose/Water 1,000 ML IV 0655 Lorazepam 100 MG Q8H 04/30 1815 DC 05/01 Dextrose/Water 1,000 ML IV 0600 Lorazepam 2 MG Q1 PRN 04/29 1615 AC 05/01 IV 2326 Ondansetron HCl 4 MG Q8P PRN 04/22 0600 AC IV Pantoprazole Sodium 40 MG BID 04/22 2200 AC 05/02 IV 0955 Sodium Chloride 500 ML BOLUS ONE 05/01 1915 DC 05/01 IV 05/01 2014 1900 Sodium Chloride 1,000 ML ONCE ONE 05/01 1200 DC 05/01 IV 05/01 1839 1159 Sodium Chloride 1,000 ML Q10H 05/01 1014 AC 05/02 IV 1352 Thiamine HCl 500 MG Q8H 04/29 0900 DC 05/02 Sodium Chloride 250 ML IV 05/02 0159 0200 Total Parenteral 1 UNIT Q24H 05/01 1900 AC 05/01 Nutrition IV 05/02 185 2035 Total Parenteral 1 UNIT ONE 04/30 1900 DC 04/30 Nutrition IV 05/01 Impression/Plan Impression/Problem List Impression: Impression and Plan - Patient is awake, following the commands. He is off the levofed/fantanyl/ antibiotics. He is on low-dose Ativan drip. Patient is leaking from the operated side, surgeons are already awair, but it is making prognosis at poor side. POD-10 Ventilator -D10 right sided PICC line - D5, CONNIE drains-3 - D10 Foleys cathter -D10 ABG - pH-7.38, PCO2 27, PO2 96, bicarbonate 16 Respiratory * According to Dr. Arroyo, We'll keep the CVP of 12 and BP > [address] Balderas says keep SAS 2-3. * If Blood pressure remained below, then we will start patient on low-dose levofed. Currently he is off Levofed. * He is on ventilator, Ventilator Settings is -AC, TV-550, IPAP -24, RR-22, PEEP -5, Fio2 45. * There is decreased air entry on the right middle and lower lobe * 05/01/2016 Patient was having right sided pleural effusion. On ultrasound it was found,it is very mild and the radiologist says that there is more chances of pneumothorax, even If they try even for diagnostic purposes.So it was decided not to do a thoracocentesis * we will try for weaning when patient become more alert. Neurology * Although patient is awake but responding to commands.We were suspecting Wernicke's encephalopathy. So we gave high dose thiamine for total 9 days * We did CT head which doent showed any intracranial pathology. * We also checked for serum ammonia which come back to 45 (04/29/2016) * Patient is also in alcohol witdrawl, so we will continue ativan drip. Infectious * Ascitic fluids is growing -enterobacter cloacae and alpha strept. * We will follow ID rcms * Discussed with Dr Osuna, patient doesnt need antibiotics. We will stop Meopenem 1g iv 8hrly, as there is no focus and patient already had 7 days course of antibiotics.04/30/2016 * To rule out the source of infection. We orderd CT chest/abdomen/pelvis, which showed moderate right-sided pleural effusion with right lower lobe consolidation and collapse. Hematology - * Hb-10.1 * We will suplement MultiVit, Thiamine, folic acid. Cardiology * Patient is hemodynamically stable Gastroenterology * there was greenish fluid in the CONNIE-1 drain. * According to the surgeons, TPN, weaning trial,Nothing by mouth and NG tube decompression, GI prophylaxis, monitoring CONNIE output. * There are 3 CONNIE drains * Abdoman is soft, there are mild bowel sounds on examiantion * We will do strict Intake output Charting * We will follow GI rcms * We stopped albumin on 04/29/2016. * We started giving lactulose from NG tube but residual was >100cc. Urology * BUN -49 Cr-0.9 * We'll monitor it regularly * Urine output in last 24 hrs is cc * We will continue IV fluids -150 ml/hrs * Strict I/O charting 1125 Endocrine * TSH -8.9, T4 -1.85 * It seems patient is having Sick Euthyroid syndrome. * We discussed with endocrinology. * We will repeat TFT after patient get recovered. Skin * There are multiple dressings on the skin, abdomen for drain, * PICC line is on the right-hand Diet -continue TPN as advised by dietitian. DVT prophylaxis -ALPS/ Heparin CODE STATUS-full code Problem List: 1. Metabolic alkalosis 2. Pleural effusion 3. MATT (acute kidney injury) 4. Sepsis 5. At risk for ventilator-associated event 6. Perforation bowel Pain Ratin Tomorrow's Labs & Rationales: cbc,icu bundle,cxr,abg Plan DVT/Prophylaxis: mechanical
--- NOTE | 2016-05-02 08:57 | NUR ---
1999 REC'D PT IN BED SEDATED ON ATIVAN GTT @4MG/HR. FAMILY AT BEDSIDE & UPDATED ON PT'S STATUS. INTUBATED/VENTED W/FIO2 40%, LS CLEAR/RHONCHUS & DIMINISHED @BASES. SUCTIONED YELLOW/WHITE SECRETIONS VIA ETT MOD AMT. ORALLY SUCTION MOD/LG AMT CLEAR SECRETIONS. MOUTH BLOCK INSITU. SR ON THE MONITOR HR 70-80'S SBP/MANUAL 100-120'S & AUTO/ 90-100'S. NS 500CC BOLUS GIVEN D/T LOW U/O & <SBP 80'S EARLIER. GOOD EFFECT W/THE NS BOLUS. NGT TO R NARES INSITU. METHYLENE BLUE GIVEN @1800 HREQIU9SB. AFTER 2HRS. BLUE D/C IN THE NGT DRAINAGE. DSRG REMAINS DRY W/OOZING NOTED AROUND THE JPS X3 & ALSO DRAINING COPIOUS AMT OF SEROSANG IN CONNIE'S SEE I/O. CONNIE #2/#3 DRAINING THIN SS & CONNIE#1 SS VISCOUS. BODY FLUID SPECIMEN IN CONNIE#1 SENT EARLIER FOR AMYLASE/LIPASE ?LEAK IN PANCREATIC AREA. ON BARIATRIC TOTAL CARE BED W/ROTATIONAL MODE. PT DOES NOT TOLERATE WELL W/T&P. DILAUDID IV GIVEN PRIOR TO T&P SEE EMAR. DRSG CHANGE W/HEAVY DRAINAGE AROUND THE JPX3 SITES. @[address] JOSH GOLDSMITH. METHYLENE BLUE IN THE NGT DRAINAGE CANNISTER & GRRENISH D/C IN CONNIE#1. 0600 MARIANA [place] UPDATED ON PT'S STATUS ESPECIALLY THE METHYLENE BLUE IN THE CONNIE#1. NO FURTHER ORDERS. REMAINS ON IVF 1/2 NS/TPN/LIPIDS INFUSION VIA NIHARIKA PICC. CONT TO MONITOR THROUGHOUT THE HS. 0730 REPORT GIVEN TO INCOMING RN KYLE.
--- NOTE | 2016-05-02 09:04 | RADIOLOGY REPORT ---
EXAMINATION: XR PORTABLE CHEST CLINICAL INFORMATION: On ventilator with pleural effusion. COMPARISON: Several prior chest x-rays, most recent of which is dated 05/01/2016. TECHNIQUE: AP semierect portable view of the chest. FINDINGS: Endotracheal tube tip approximately 5.8 cm from the ching. Enteric tube is seen coursing into the left upper quadrant with tip not adequately visualized. Right subclavian PICC line is in place with tip poorly visualized but likely within the right atrium. Low lung volumes are again seen with hazy opacities seen in both lungs, consistent with a moderate right-sided and a small left-sided layering pleural effusion. Associated bibasilar consolidation or atelectasis is seen, similar to the previous exam. Central vascular congestion and indistinctness is again seen without overt pulmonary edema. No pneumothorax is seen. Bony structures grossly unremarkable. IMPRESSION: 1. Endotracheal tube tip approximately 5.8 cm above the ching. 2. Enteric tube extends into the left upper quadrant with tip not adequately visualized. 3. Right subclavian PICC line likely within right atrium. 4. No significant change in moderate right-sided and small left-sided layering pleural effusions with bibasilar consolidation or atelectasis, right greater than left. 5. Central vascular congestion.
--- NOTE | 2016-05-02 09:19 | PN- CRCU ---
Subjective HPI/Critical Care Issues: The patient is awake, but not following commands. He remains intubated and sedated. Last evening, the patient received methylene blue catheter his NG tube , noting that some greenish drainage was put out through CONNIE bulb #1 concerning for an ongoing perforation. Surgery is aware. The recommendations are to resend the drain fluid for amylase and lipase. Further surgical recommendations are pending. The patient remained hemodynamically stable. His respiratory status also is stable with an oxygen saturation of 95% on 40% FiO2. He is afebrile. There were no other overnight events reported. Objective Current Medications: Current Medications Sig/Roberto Start time Last Medication Dose Route Stop Time Status Admin Acetylcysteine 2 ML BID 04/30 2200 AC 05/02 INH 0801 Albuterol Sulfate 3 ML EVERY 4 HRS/AWAKE 05/01 2000 AC 05/02 INH 0800 Albuterol Sulfate 3 ML EVERY 4 HRS/AWAKE .. 04/30 1436 DC 05/01 INH 05/01 1959 1635 Bisacodyl 10 MG ONCE ONE 05/01 1015 DC 05/01 OR 05/01 1016 1551 Fat Emulsion 350 ML Q24H 05/01 1900 AC 05/01 Intravenous IV 05/02 1859 2035 Fat Emulsion 350 ML Q24H 04/30 1900 DC 04/30 Intravenous IV 05/01 1852014 Heparin Sodium 5,000 UNIT Q8 04/24 1400 AC 05/02 (Porcine) SC 0658 Hydromorphone HCl 2 MG Q6P PRN 04/22 0930 AC 05/02 IV 0336 Lactulose 20 GM TID 04/30 1000 AC 05/01 PO 2329 Lorazepam 100 MG Q24H 05/01 0400 AC 05/02 Dextrose/Water 1,000 ML IV 0655 Lorazepam 100 MG Q8H 04/30 1815 DC 05/01 Dextrose/Water 1,000 ML IV 0600 Lorazepam 2 MG Q1 PRN 04/29 1615 AC 05/01 IV 2326 Ondansetron HCl 4 MG Q8P PRN 04/22 0600 AC IV Pantoprazole Sodium 40 MG BID 04/22 2200 AC 05/01 IV 2329 Sodium Chloride 500 ML BOLUS ONE 05/01 1915 DC 05/01 IV 05/01 2014 1900 Sodium Chloride 1,000 ML ONCE ONE 05/01 1200 DC 05/01 IV 05/01 1839 1159 Sodium Chloride 1,000 ML Q10H 05/01 1014 AC 05/02 IV 0656 Sodium Chloride 1,000 ML Q10H 04/30 1515 DC 05/01 IV 1004 Thiamine HCl 500 MG Q8H 04/29 0900 DC 05/02 Sodium Chloride 250 ML IV 05/02 0159 0200 Total Parenteral 1 UNIT Q24H 05/01 1900 AC 05/01 Nutrition IV 05/02 Total Parenteral 1 UNIT ONE 04/30 1900 DC 04/30 Nutrition IV 05/01 Vital Signs & I&O Last 24 Hrs of Vitals and I&O: Vital Signs Date Time Temp Pulse Resp B/P Pulse O2 O2 Flow FiO2 Ox Delivery Rate 05/02 0755 40 05/02 0639 40 05/02 0600 68 22 100/50 05/02 0400 99.5 77 30 120/50 05/02 0400 96 Ventilator 40% 05/02 0244 40 05/02 0200 72 25 89/47 05/02 0000 98.4 71 22 120/80 05/02 0000 96 Ventilator 40% 05/01 2327 40 05/01 2200 96 22 90/48 05/01 2000 98.3 96 25 101/49 05/01 2000 95 Ventilator 40% 05/01 1915 40 05/01 1626 40 05/01 1600 97.4 66 22 88/56 05/01 1600 97.4 66 22 88/56 97 Ventilator 40% 05/01 1600 94 Ventilator 40% 05/01 1353 40 05/01 1200 97.9 68 22 100/60 05/01 1200 93 Ventilator 40% 05/01 1126 40 Intake & Output 05/02 1600 05/02 0800 05/02 0000 Intake Total 2115 3832 Output Total 1875 1640 Balance 240 2192 Intake, IV 2115 3622 Intake, Other 210 Number 1 0 Bowel Movements Output, 925 940 Drainage Output, 150 250 Gastric Drainage Output, Urine 800 450 Exam General Appearance: intubated, opens eyes but not following commands Head: atraumatic Neck: supple Respiratory: no respiratory distress, bilateral anterior rhonchi, the lungs expand symmetrically and the trachea is midline Cardiovascular: regular rate/rhythm, tachycardia, S1 and S2 heard Abdomen: CONNIE drains in place, distended, surgical dressings in place, slight increase in bowel sounds Extremities: warm and dry Skin: no cyanosis or edema Results Last 24 Hrs of Lab Results: Laboratory Tests 05/02/16 0525: Fluid Amylase Pending, Fluid Lipase Pending 05/02/16 0500: pH 7.31 L, pCO2 32 L, pO2 97, HCO3 16 L, ABG O2 Sat (Measured) 96.0, P-50 ( Temp Corrected) Y, Carboxyhemoglobin 0.3 L, O2 Concentration % 40%, Temperature 99.6, Respiration Rate 22, O2 Delivery Method ESPRIT, Vent Mode AC, Expiratory Pressure 5, Tidal Volume 550, Phlebotomy Draw Site LEFT RADIAL 05/02/16 0420: Anion Gap 6, Estimated GFR > 60, Glucose 126 H, Calcium 8.4, Phosphorus 4.7 H, Magnesium 2.2, Total Bilirubin 1.3, AST 71 H, ALT 38, Albumin 2.1 L, CBC w Diff NO MAN DIFF REQ, RBC 3.18 L, MCV 97.7 H, MCH 31.8 H, RDW 16.2 H, MPV 9.8, Gran % 84.8 H, Lymphocytes % 5.1 L, Monocytes % 9.3, Eosinophils % 0.7, Basophils % 0.1, Absolute Granulocytes 9.2 H, Absolute Lymphocytes 0.6 L, Absolute Monocytes 1.0 H, Absolute Eosinophils 0.1, Absolute Basophils 0, PUBS MCHC 32.6 L 05/01/16 1800: Fluid Amylase , Fluid Lipase Impression/Plan Impression/Plan Impression/Plan: 1. Perforated viscus with possible ongoing perforation noting the patient was given methylene blue yesterday with greenish output from CONNIE drain #1. The patient also has ongoing metabolic acidosis. 2. Acute kidney injury - improved. 3. Alcoholic hepatitis with improved bilirubin. 4. Alcohol withdrawal with increased agitation requiring ativan for sedation. 5. Macrocytic anemia in the setting of alcohol use, no evidence of active bleeding. 6. Deep tissue injury - right scapula area. 7. Hyperchloremia, improving, likely from TPN. 8. Alcohol dependence/abuse, ETOH withdrawl. 9. Encephalopathy - hepatic? metabolic? Recommendations: * Continue to wean Ativan down for an SAS of 3-4. * Increased respiratory rate to 26. Check follow up ABG after change. * Await decision from surgery regarding the possibility of intervention. * Monitor off antibiotics as per ID. * Continue 1/2 NS at 150 ml/hour. * MVI, thiamine, folate in TPN. * Will begin weaning trials when the patient is more awake and alert. * Continue ventilator bundle with DVT and GI prophylaxis. * Skin care protocol, off load deep tissue injury area. * Continue all supportive care. * Patient's family updated at bedside. * Possible poor prognosis considering the possibility of ongoing perforation. * Plan is for family meeting at 4:15 today. TTS 45
--- NOTE | 2016-05-02 10:34 | PN- Infect Dx ---
Subjective Subjective: Afebrile. His blood pressure dropped yesterday, requiring several boluses of IV fluid. Methylene blue was given last night through the NG tube, with greenish discoloration to the fluid in CONNIE #1. Objective Last 24 Hrs of Vital Signs/I&O Vital Signs Date Time Temp Pulse Resp B/P Pulse O2 O2 Flow FiO2 Ox Delivery Rate 05/02 800 98.0 66 22 100/49 05/02 0800 95 Ventilator 40% 05/02 0800 98.0 66 22 100/49 95 Ventilator 40% 05/02 0755 40 05/02 0639 40 05/02 0600 68 22 100/50 05/02 0400 99.5 77 30 120/50 05/02 0400 96 Ventilator 40% 05/02 0244 40 05/02 0200 72 25 89/47 / 0000 98.4 71 22 120/80 / 0000 98.4 71 22 120/80 96 Ventilator 40% 05/02 0000 96 Ventilator 40% 05/01 2327 40 05/01 2200 96 22 90/48 05/01 2000 98.3 96 25 101/49 05/01 2000 95 Ventilator 40% 05/01 1915 40 08 1626 40 05/01 1600 97.4 66 22 88/56 08 1600 97.4 66 22 88/56 97 Ventilator 40% 05/01 1600 94 Ventilator 40% 05/01 1353 40 05/01 1200 97.9 68 22 100/60 /08 1200 93 Ventilator 40% 05/01 1126 40 Intake & Output 05/02 1600 05/02 0800 12/ 0000 Intake Total 2115 3832 Output Total 1875 1640 Balance 240 2192 Intake, IV 2115 3622 Intake, Other 210 Number 1 0 Bowel Movements Output, 925 940 Drainage Output, 150 250 Gastric Drainage Output, Urine 800 450 Physical Exam Other Physical Findings: He is awake but not responsive, unable to follow commands Lungs are clear Heart regular rhythm with no murmur Abdomen is distended, nontender, with positive bowel sounds; CONNIE drains remain in place, with serosanguineous fluid noted in CONNIE #1 Extremities no cyanosis, clubbing or edema; PICC in the right upper extremity with no inflammation at the site Ann catheter remains in place Results Last 24 Hours of Lab Results: Laboratory Tests 05/02 05/02 05/02 0525 0500 0420 Blood Gas pH (7.35 - 7.45 PH) 7.31 L pCO2 (35 - 45 TORR) 32 L pO2 (80 - 100 TORR) 97 HCO3 (21 - 28 MEQ/L) 16 L ABG O2 Sat (Measured) (>96.0 %) 96.0 P-50 (Temp Corrected) Y Carboxyhemoglobin (1.5 - 5.0 %) 0.3 L O2 Concentration % 40% Temperature (97.0 - 100.0 FARH) 99.6 Respiration Rate (BPM) 22 O2 Delivery Method ESPRIT Vent Mode AC Expiratory Pressure (CMH2O/P) 5 Tidal Volume (CC) 550 Chemistry Sodium (137 - 145 mmol/L) 138 Potassium (3.5 - 5.1 mmol/L) 5.0 Chloride (98 - 107 mmol/L) 112 H Carbon Dioxide (22 - 30 mmol/L) 19 L Anion Gap (5 - 16) 6 BUN (9 - 20 mg/dL) 49 H Creatinine (0.7 - 1.2 mg/dL) 0.8 Estimated GFR (>60 ml/min) > 60 Glucose (65 - 99 mg/dL) 126 H Calcium (8.4 - 10.2 mg/dL) 8.4 Phosphorus (2.5 - 4.5 mg/dL) 4.7 H Magnesium (1.6 - 2.3 mg/dL) 2.2 Total Bilirubin (0.2 - 1.3 mg/dL) 1.3 AST (17 - 59 U/L) 71 H ALT (21 - 72 U/L) 38 Albumin (3.5 - 5.0 g/dL) 2.1 L Hematology CBC w Diff NO MAN DIFF REQ WBC (4.8 - 10.8 /CUMM) 10.9 H RBC (4.70 - 6.10 /CUMM) 3.18 L Hgb (14.0 - 18.0 G/DL) 10.1 L Hct (42 - 52 %) 31.0 L MCV (80.0 - 94.0 FL) 97.7 H MCH (27.0 - 31.0 PG) 31.8 H RDW (11.5 - 14.5 %) 16.2 H Plt Count (130 - 400 /CUMM) 168 MPV (7.4 - 10.4 FL) 9.8 Gran % (42.2 - 75.2 %) 84.8 H Lymphocytes % (20.5 - 51.1 %) 5.1 L Monocytes % (1.7 - 9.3 %) 9.3 Eosinophils % (0 - 5 %) 0.7 Basophils % (0.0 - 2.0 %) 0.1 Absolute Granulocytes (1.4 - 6.5 /CUMM) 9.2 H Absolute Lymphocytes (1.2 - 3.4 /CUMM) 0.6 L Absolute Monocytes (0.10 - 0.60 /CUMM) 1.0 H Absolute Eosinophils (0.0 - 0.7 /CUMM) 0.1 Absolute Basophils (0.0 - 0.2 /CUMM) 0 PUBS MCHC (33.0 - 37.0 G/DL) 32.6 L Miscellaneous Phlebotomy Draw Site LEFT RADIAL Other Body Source Fluid Amylase (U/L) ND Fluid Lipase (U/L) ND /08 1800 Other Body Source Fluid Amylase (U/L) Fluid Lipase (U/L) Last 24 Hours of Garcia Results: No recent cultures Recent Imaging Studies: Chest x-ray May 02, personally reviewed, reveals no significant change in the moderate right-sided and small left-sided layering pleural effusions with bibasilar densities, right greater than left; central vascular congestion Assessment/Plan Impression: Condition is poor with borderline hypotension, for which he was given IV fluids yesterday, and now with evidence of greenish drainage in CONNIE drain #1 after instilling methylene blue in the NG tube, raising concern for a leak from his perforated ulcer, now 10 days status post laparoscopic Clint plication of a perforated duodenal ulcer, with recent CT scan negative for any evidence of an abscess or leakage. He remains afebrile with white blood cell count slightly elevated off antibiotics. He is otherwise stable with renal and respiratory status unchanged. Suggestion: 1. Further evaluation/management of the possible duodenal leak per surgery 2. Repeat blood cultures 2 3. Continue to follow off antibiotics
--- NOTE | 2016-05-02 10:54 | NUR ---
AT 1000 THE ENTIRE ABDOMINAL DRESSING WAS CHANGED DUE TO HEAVY DRAINAGE NOTED. THE MID ABD CONNIE AND THE R ABD CONNIE HAD SEROUS DRAINAGE LEAKING AROUND THE TUBE-LG AMOUNT.
--- NOTE | 2016-05-02 11:03 | NUR ---
DRESSING TO ABD CHANGED AT 1000 HAD HEAVY AMOUNT OF SEROUS DRAINAGE NOTED.
--- NOTE | 2016-05-02 11:15 | NUR ---
[facility] MANAGER INCREASED THE RR TO [address] PANDEY. ABG OBTAINED AT THIS TIME-SEE CRCU FLOWSHEET FOR RESULTS.
--- NOTE | 2016-05-02 17:27 | NUR ---
AT 1645 THE ABDOMINAL DRESSING WAS CHANGED. DRESSING HAD HEAVY AMOUNT OF SEROUS DRAINAGE TO ALL AREAS OF DRESSING. CONNIE#2 AND CONNIE#3 HAD DRAINAGE LEAKING AROUND OPENING IN THE SKIN. HEAVY DRAINAGE DRESSING APPLIED TO THE ENTIRE ABD.
[2016-05-03] VITALS: BP 132/80
[2016-05-03 04:00] VITALS: BP 91/49
--- NOTE | 2016-05-03 05:49 | PN- General Surgery ---
See Addendum Subjective Subjective: Patient remains in critical condition, intubated and on ventilator with ativan gtt for CIWA protocol. Patient has leak from em patch site and is draining into CONNIE drain #1. The plan discussed with Dr. Mcgarry is to treat conservatively as patient is a poor candidate for surgery at this time. No acute events overnight. Objective Vital Signs and I&Os Vital Signs Date Time Temp Pulse Resp B/P Pulse O2 O2 Flow FiO2 Ox Delivery Rate 05/03 0400 98.3 96 26 91/49 05/03 0400 100 Ventilator 40% 05/03 0234 40 05/03 0058 40 05/03 0000 100.3 76 26 132/80 05/03 0000 97 Ventilator 40% 05/03 0000 100.3 76 26 132/80 93 Nasal 40% Cannula 05/02 2217 40 05/02 2000 40 05/02 2000 97.8 78 26 118/72 05/02 2000 95 Ventilator 40% 05/02 1623 40 05/02 1600 97.7 78 26 110/70 05/02 1600 96 Ventilator 40% 05/02 1600 97.7 78 26 110/70 96 Ventilator 40% 05/02 1400 40 05/02 1200 98.2 83 27 114/70 05/02 1200 92 Ventilator 40% 05/02 1129 40 05/02 0800 98.0 66 22 100/49 05/02 0800 95 Ventilator 40% 05/02 0800 98.0 66 22 100/49 95 Ventilator 40% 05/02 0755 40 05/02 0639 40 05/02 0600 68 22 100/50 Intake & Output 05/03 0800 05/03 0000 05/02 1600 05/02 0800 05/02 0000 05/01 1600 Intake Total 2359.0 2166.0 2115 3832 2688.0 Output Total 2140 1885 1875 1640 1675 Balance 219.0 281.0 240 2192 1013.0 Intake, IV 1513 1330 2115 3622 1686 Intake, Lipid 118.0 197.0 124.0 Intake, Oral 0 Intake, Other 210 100 Intake, 728 639 778 TPN/PPN Number 1 0 0 Bowel Movements Output, 1300 1250 925 940 950 Drainage Output, 100 50 150 250 250 Gastric Drainage Output, Urine 740 585 800 450 475 Physical Exam: Gen: Intubated Chest: Good air movement on ventilator. RRR. Abd: Soft, distended. CONNIE drains in place with ascitic drainage. CONNIE drain #1 stained a bright green color likely from methylene blue that was given a couple days ago. CONNIE dressing sites with ascitic drainage. Ext: BLE warm. No calve swelling. Current Medications: Current Medications Sig/Roberto Start time Last Medication Dose Route Stop Time Status Admin Acetylcysteine 2 ML BID 04/30 2200 AC 05/02 INH 2020 Albuterol Sulfate 3 ML EVERY 4 HRS/AWAKE 05/01 2000 AC 05/02 INH 2020 Fat Emulsion 400 ML Q24H 05/02 1900 AC 05/02 Intravenous IV 05/03 Fat Emulsion 350 ML Q24H 05/01 190 DC 05/01 Intravenous IV 05/02 Heparin Sodium 5,000 UNIT Q8 04/24 1400 AC 05/02 (Porcine) SC 2239 Hydromorphone HCl 2 MG Q6P PRN 04/22 0930 AC 05/02 IV 0336 Lactulose 20 GM TID 04/30 1000 DC 05/01 PO 2329 Lorazepam 100 MG Q24H 05/01 0400 AC 05/02 Dextrose/Water 1,000 ML IV 0655 Lorazepam 2 MG Q1 PRN 04/29 1615 AC 05/01 IV 2326 Ondansetron HCl 4 MG Q8P PRN 04/22 0600 IV Pantoprazole Sodium 40 MG BID 04/22 2200 AC 05/02 IV 2239 Sodium Chloride 1,000 ML Q10H 05/01 1014 AC 05/02 IV 202 Total Parenteral 1 UNIT Q24H 05/02 190 AC 05/02 Nutrition IV 05/03 Total Parenteral 1 UNIT Q24H 05/01 1900 DC 05/01 Nutrition IV 05/02 Results Last 48 Hours of Labs: Laboratory Tests 05/03 05/02 05/02 05/02 0445 1115 0525 0500 Blood Gas pH (7.35 - 7.45 PH) 7.38 7.31 L pCO2 (35 - 45 TORR) 27 L 32 L pO2 (80 - 100 TORR) 96 97 HCO3 (21 - 28 MEQ/L) 16 L 16 L ABG O2 Sat (Measured) (>96.0 %) 97.0 96.0 P-50 (Temp Corrected) Y Carboxyhemoglobin (1.5 - 5.0 %) 0.4 L 0.3 L O2 Concentration % 40% 40% Temperature (97.0 - 100.0 FARH) 98.0 99.6 Respiration Rate (BPM) 26 22 O2 Delivery Method ESPRIT ESPRIT Vent Mode VC-AC AC Expiratory Pressure (CMH2O/P) 5 5 Tidal Volume (CC) 550 550 Chemistry Sodium Pending Potassium Pending Chloride Pending Carbon Dioxide Pending Anion Gap Pending BUN Pending Creatinine Pending Glucose Pending Calcium Pending Phosphorus Pending Magnesium Pending Total Bilirubin Pending AST Pending ALT Pending Albumin Pending Hematology CBC w Diff Pending WBC Pending RBC Pending Hgb Pending Hct Pending MCV Pending MCH Pending RDW Pending Plt Count Pending MPV Pending PUBS MCHC Pending Miscellaneous Phlebotomy Draw Site LEFT RADIAL LEFT RADIAL Other Body Source Fluid Amylase (U/L) ND Fluid Lipase (U/L) ND 05/02 05/01 0420 1800 Chemistry Sodium (137 - 145 mmol/L) 138 Potassium (3.5 - 5.1 mmol/L) 5.0 Chloride (98 - 107 mmol/L) 112 H Carbon Dioxide (22 - 30 mmol/L) 19 L Anion Gap (5 - 16) 6 BUN (9 - 20 mg/dL) 49 H Creatinine (0.7 - 1.2 mg/dL) 0.8 Estimated GFR (>60 ml/min) > 60 Glucose (65 - 99 mg/dL) 126 H Calcium (8.4 - 10.2 mg/dL) 8.4 Phosphorus (2.5 - 4.5 mg/dL) 4.7 H Magnesium (1.6 - 2.3 mg/dL) 2.2 Total Bilirubin (0.2 - 1.3 mg/dL) 1.3 AST (17 - 59 U/L) 71 H ALT (21 - 72 U/L) 38 Albumin (3.5 - 5.0 g/dL) 2.1 L Hematology CBC w Diff NO MAN DIFF REQ WBC (4.8 - 10.8 /CUMM) 10.9 H RBC (4.70 - 6.10 /CUMM) 3.18 L Hgb (14.0 - 18.0 G/DL) 10.1 L Hct (42 - 52 %) 31.0 L MCV (80.0 - 94.0 FL) 97.7 H MCH (27.0 - 31.0 PG) 31.8 H RDW (11.5 - 14.5 %) 16.2 H Plt Count (130 - 400 /CUMM) 168 MPV (7.4 - 10.4 FL) 9.8 Gran % (42.2 - 75.2 %) 84.8 H Lymphocytes % (20.5 - 51.1 %) 5.1 L Monocytes % (1.7 - 9.3 %) 9.3 Eosinophils % (0 - 5 %) 0.7 Basophils % (0.0 - 2.0 %) 0.1 Absolute Granulocytes (1.4 - 6.5 /CUMM) 9.2 H Absolute Lymphocytes (1.2 - 3.4 /CUMM) 0.6 L Absolute Monocytes (0.10 - 0.60 /CUMM) 1.0 H Absolute Eosinophils (0.0 - 0.7 /CUMM) 0.1 Absolute Basophils (0.0 - 0.2 /CUMM) 0 PUBS MCHC (33.0 - 37.0 G/DL) 32.6 L Other Body Source Fluid Amylase (U/L) Fluid Lipase (U/L) Assessment/Plan Assessment/Plan 50yo male s/p laparoscopic Em patch repair of perforated duodenal ulcer postoperative day #12. +leak. Condition unchanged. Recommendations: Continue to monitor Follow-up morning laboratory studies Continue TPN Nothing by mouth and NG tube decompression GI and DVT prophylaxis f/u ID recs will d/w attending
[2016-05-03 06:11] LABS: ABSOLUTE BASOPHIL COUNT 0.1 /CUMM (0.0-0.2); ABSOLUTE EOSINOPHIL COUNT 0.2 /CUMM (0.0-0.7); ABSOLUTE GRANULOCYTE CT 11.2 /CUMM (1.4-6.5); ABSOLUTE MONOCYTE COUNT 1.2 /CUMM (0.10-0.60); BASOPHIL % 0.5 % (0.0-2.0); EOSINOPHIL % 1.2 % (0-5); GRANULOCYTE % 82.3 % (42.2-75.2); HEMATOCRIT 28.7 % (42-52); MEAN CORPUSCULAR HGB 31.4 PG (27.0-31.0); MEAN CORPUSCULAR HGB CONC 32.5 G/DL (33.0-37.0); MEAN CORPUSCULAR VOLUME 96.7 FL (80.0-94.0); MEAN PLATELET VOLUME 9.8 FL (7.4-10.4); PLATELET COUNT 203 /CUMM (130-400); RBC DISTRIBUTION WIDTH 15.8 % (11.5-14.5); RED BLOOD CELL CT 2.97 /CUMM (4.70-6.10); WHITE BLOOD CELL COUNT 13.6 /CUMM (4.8-10.8)
[2016-05-03 08:00] VITALS: BP 130/60
--- NOTE | 2016-05-03 08:34 | PN- Resident CRCU ---
Subjective HPI/CRCU Issues: patient is a 50 y/o Male, with a significant past medical history of hypertension, hyperlipidemia, GERD, diverticulosis, degenerative joint disease, a vascular necrosis status post hip replacement, fatty liver disease, alcohol abuse presented with chronic alcohol abuse, nausea, vomting, abd distension and pain which got worse so he presented to ED on 04/21/2016. On Evaluation CT scan showed pneumoperitoneum, moderate ascites.On examination the abdomen was distended and tender to palpation , so diagnostic paracentesis was done which showed WBC 9504, RBC 2156. Because of the perforation, It seems that patient developed the secondary bacterial peritonitis. We took surgical consultation. The next couple of hours patient went into septicemia and shock. So he was given IV fluids and prophylactic antibiotics including ceftriaxone metronidazole and vancomycin. We catheterized the patient. Despite of these measures his blood pressure going down , so we took surgical consultation and plan for emergent surgery. Meantime, we intubated the patient and put him on mechanical ventilation(assist control mode, TV-500, respiratory rate 28, PEEP 5, FiO2 100%), triple-lumen catheter was placed in the right side of jugular vein. Patients blood pressure was continuosly going down, so we started him on Levothroid/vasopressin. We also started him on fentanyl and propofol drip. The culture of the ascites fluid came back positive for gram-negative. We took the consult from infectious disease specialist/Abdullahi Osuna MD. He advised to change ceftriaxone to ceftazidime and advised to wait for sensitivities report. Patient went to surgery on 04/22/2016. In postop, His blood pressure was 119/62. He is improving after surgery. When blood pressure remained maintained to normal , we stopped all the pressures and also slowly stopped sedation. We tried weaning multiple times. In between the patient started having fever of 100.2, awaited. CT scan of chest/abdomen/pelvis on 04/29/2016 which showed moderate right-sided pleural effusion and consolidation and collapse of right lower lobe. CRCU issues - Perforated duodenal ulcer s/p exploratory laparoscopy with grahm plication of duodenal ulcer Secondary bacterial Peritonitis Septic shock with MODS/ MATT improving/ Lactic acidosis improving/ Alcoholic hepatitis with transaminitis Ascitis Sigmoid Diverticulitis Hypertension Hyperlipidemia Morbidly Obese 24 Hour Events: In the night, there was greenish fluid in the CONNIE-1 drain. To rule out continuous leak from the site of repair,surgeons, put the methylene blue, via NG tube and clamped it. They found it is coming out through the CONNIE-1 drain. Even in the morning they found greenish fluid in the CONNIE-1 drain. We sent drain for amylase and lipase. 24 Hour Events: Patient is intubated, vent setting: TV 595, rate 26, VE 15.4, PTIP 30.1. There is yellowish fluid in the CONNIE-1 drain. Patient still had leaks from the CONNIE tube yesterday. Objective Vital Signs & I&O Last 8 Hrs of Vitals and I&O: Temperature 97.8-100.5 Pulse 76-96 Respiratory rate 22-26 Blood pressure 91/49-132/80 SPO2 93-100% Exam General Appearance: well developed/nourished, no apparent distress, intubated, lethargic, mild distress, obese Head: atraumatic, normal appearance Ears, Nose, Throat: intubated, has NG tube Neck: normal inspection Respiratory: normal breath sounds, chest non-tender, quiet respiration, accessory muscle use, crackles Cardiovascular: regular rate/rhythm Gastrointestinal: soft, distention, CONNIE drain in place Extremities: normal inspection, normal capillary refill, pedal edema Weaning Parameters NIF: 17 Minute Volume: 5.09 Resp rate: 26 Vt: 150 Heart Rate: 84 Weaning Schedule Start Time: 1105 Minute Volume: 10.3 Resp Rate: 18 Vt: 621 Heart Rate: 83 End Time: 1107 Minute Volume: 0 Resp Rate: 0 Vt: 0 Heart Rate: 83 Current Medications: Current Medications Sig/Roberto Start time Last Medication Dose Route Stop Time Status Admin Acetylcysteine 2 ML BID 04/30 2200 AC 05/03 INH 0819 Albuterol Sulfate 3 ML EVERY 4 HRS/AWAKE 05/01 2000 AC 05/03 INH 1614 Fat Emulsion 400 ML 1900 05/03 1900 AC Intravenous IV 05/04 1859 Fat Emulsion 400 ML Q24H 05/02 1900 AC 05/02 Intravenous IV 05/03 Fat Emulsion 350 ML Q24H 05/01 190 DC 05/01 Intravenous IV 05/02 1859 203 Heparin Sodium 5,000 UNIT Q8 04/24 1400 AC 05/03 (Porcine) SC 1331 Hydromorphone HCl 2 MG Q6P PRN 04/22 0930 AC 05/03 IV 1634 Lactulose 1 BOT Q6 05/03 1200 AC WV Lorazepam 100 MG Q24H 05/01 0400 AC 05/03 Dextrose/Water 1,000 ML IV 0635 Lorazepam 2 MG Q1 PRN 04/29 1615 AC 05/01 IV 2326 Meropenem 1 GM IQ8 05/03 1000 AC 05/03 IV 1634 Ondansetron HCl 4 MG Q8P PRN 04/22 0600 AC IV Pantoprazole Sodium 40 MG BID 04/22 2200 AC 05/03 IV 0941 Sodium Chloride 1,000 ML Q10H 05/01 1014 AC 05/03 IV 1154 Total Parenteral 1 UNIT 1900 05/03 1900 AC Nutrition IV 05/04 185 Total Parenteral 1 UNIT Q24H 05/02 1900 AC 05/02 Nutrition IV 05/03 1851957 Total Parenteral 1 UNIT Q24H 05/01 1900 DC 05/01 Nutrition IV 05/02 Impression/Plan Impression/Problem List Impression: Impression and Plan - Patient is awake, following the commands. He is off the levofed/fantanyl/ antibiotics. He is on low-dose Ativan drip. Patient is leaking from the operated side, surgeons are already awair, but it is making prognosis at poor side. POD-11 Ventilator -D11 right sided PICC line - D5, CONNIE drains-3 - D11 Foleys cathter -D11 ABG - pH-7.38, PCO2 27, PO2 96, bicarbonate 16 Respiratory * According to Dr. Arroyo, We'll keep the CVP of 12 and BP > [address] Balderas says keep SAS 2-3. * If Blood pressure remained below, then we will start patient on low-dose levofed. Currently he is off Levofed. * He is on ventilator, Ventilator Settings is -AC, TV-550, RR-26, PEEP-5, Fio2 40. * There is decreased air entry on the right middle and lower lobe * 05/01/2016 Patient was having right sided pleural effusion. On ultrasound it was found,it is very mild and the radiologist says that there is more chances of pneumothorax, even If they try even for diagnostic purposes.So it was decided not to do a thoracocentesis * we will try for weaning when patient become more alert. * Per ID: obtained sputum culture, urine culture, CT scan of the chest abdomen and pelvis, will follow results AND started meropenem 1g Q8 * Also we will monitor for possible fungemia but will hold off on anti-fungals for now. * CT scan reported persistent moderate right pleural effusion and small left pleural effusion. Persistent collapse/consolidation of right lower lobe and, to a lesser degree, left lower lobe. Subsegmental atelectasis within the superior lingula has increased. Hepatosplenomegaly. Persistent small volume of ascitic fluid in the abdomen and pelvis, and edema of the mesentery. There are no newly developing fluid collections. The drainage catheters are in stable position compared to 04/29/2016. *I talked to the family at bedside and updated them about CT results Neurology * Although patient is awake but responding to commands.We were suspecting Wernicke's encephalopathy. So we gave high dose thiamine for total 9 days * We did CT head which doent showed any intracranial pathology. * We also checked for serum ammonia which come back to 45 (04/29/2016) * Patient is also in alcohol witdrawl, so we will continue ativan drip. * Per Dr. lee started lactulose enemas Q6 PRN Infectious * Ascitic fluids is growing -enterobacter cloacae and alpha strept. * We will follow ID rcms * To rule out the source of infection. We orderd CT chest/abdomen/pelvis, which showed moderate right-sided pleural effusion with right lower lobe consolidation and collapse. * Due to spike of fever sent sputum for culture and repeat chest and abdominopelvis CT per Dr. Osuna, also started meropenem again. Hematology - * Hb-9.3 (10.1 yesterday) * We will suplement MultiVit, Thiamine, folic acid. Cardiology * Patient is hemodynamically stable Gastroenterology * there was greenish fluid in the CONNIE-1 drain. * According to the surgeons, TPN, weaning trial,Nothing by mouth and NG tube decompression, GI prophylaxis, monitoring CONNIE output. * There are 3 CONNIE drains * Abdoman is soft, there are mild bowel sounds on examiantion * We will do strict Intake output Charting * We will follow GI rcms * We stopped albumin on 04/29/2016. * We started giving lactulose from NG tube but residual was >100cc. * Lactulose enemas Q6 PRN: first attemp did not go far into the simoid colon, we asked GI Dr. Chavis to come and see the patient and evaluate need for sygmoidoscopy, he tried the enema and further in to about 14 inches, however per the nurse the inserted fluid came out right after insertion. will try again. Urology * BUN -39 Cr-0.8 * We'll monitor it regularly * Urine output in last 24 hrs is cc * We will continue IV fluids - 150 ml/hrs * Strict I/O Endocrine * TSH -8.9, T4 -1.85 * It seems patient is having Sick Euthyroid syndrome. * We discussed with endocrinology. * We will repeat TFT after patient get recovered. Skin * There are multiple dressings on the skin, abdomen for drain, * PICC line is on the right-hand Diet -continue TPN as advised by dietitian. DVT prophylaxis -ALPS/ Heparin CODE STATUS-full code Problem List: 1. Metabolic alkalosis 2. Pleural effusion 3. MATT (acute kidney injury) 4. Sepsis 5. At risk for ventilator-associated event 6. Perforation bowel 7. Liver failure 8. Ascites 9. Bowel perforation Pain Ratin (not able to obtain) Tomorrow's Labs & Rationales: cbc (leukocytosis) ICU bundle (on TPN, liver cirrhosis) Plan DVT/Prophylaxis: mechanical
--- NOTE | 2016-05-03 08:37 | RADIOLOGY REPORT ---
EXAMINATION: XR PORTABLE CHEST CLINICAL INFORMATION: Respiratory failure. COMPARISON: Prior chest radiographs, most recently 05/02/2016. TECHNIQUE: An AP portable upright view of the chest was obtained. FINDINGS: The heart, great vessels, pulmonary vasculature and mediastinum are stable. An endotracheal tube is seen with tip positioned approximately 4.3 cm superior to the ching. PICC catheter unchanged, with its tip at the level of the superior vena cava. Nasogastric tube is poorly delineated. There is pulmonary vascular congestion, without overt pulmonary edema. There is elevation of the right hemidiaphragm, with mild right base atelectasis. There is plate-like atelectasis at the mid left lung field. No pleural effusion or pneumothorax is seen. There is no acute osseous abnormality. IMPRESSION: 1. Endotracheal tube tip positioned as above. 2. There is bilateral airspace disease, left greater than right, with appearance favoring atelectasis. 3. Bilateral pleural effusions are less well appreciated than on prior.
--- NOTE | 2016-05-03 09:14 | NUR ---
@0800-PT SEDATED ON ATIVAN GTT, SAS 3. ATTEMPTS TO OPEN EYES TO VERBAL STIM. INCREASED AGITATED WITH MOVEMENT OR STIMULATION. BILAT WRISTS RESTRAINTS CONT AND RENEWED AT THIS TIME FOR ATTEMPTS TO PULL AT ETT/NGT. ATIVAN GTT TITRATED DOWN TO 3MG/HR FROM 4MG/HR. NOT FOLLOWING COMMANDS AT THIS TIME. CONT ON VENT WITH NO CHANGE TO SETTINGS. CONT ON 40% FIO2. O2SAT 94%. MOD AMTS OF SECRETIONS SUCTIONED BY RT, DUCKWORTH/FROTHY. NEBS Q4HRS. PT WILL RECIEVE CPT TO RLL BY RT WITH POSIITON CHANGE THIS AM. NSR HR 80S. BP STABLE. NGT TO R NARES TO LWS. YELLOW/GREEN DRAINGAGE NOTED. PT HAS LOOSE MUCUS BM OVERNIGHT. HYPOACTIVE BS NOTED. CONNIE X 3 TO ABD-SERROUS TO SS/VISCOUS DRAINAGE NOTED. OSTOMY BAG NOTED OVER R/MID ABD STAPLE SITE DUE TO LARGE AMTS OF DRAINAGE NOTED FROM SITE. DTI CONT TO R SCAP AREA. CONT T/P Q2HRS AND CONT ON BARIATRIC SPECIALTY AIR MATTRESS. DIAPHORESIS NOTED. TEMP 100.5 THIS AM, FAN PLACED AT BEDSIDE AND COOL WASHCLOTH TO FOREHEAD. IVF CONT 1/2NS INFUSING AT 150ML/HR, TPN AND LIPIDS CONT TO INFUSE THROUGH NIHARIKA PICC SITE. WBC 13.6 THIS AM. CONT TO MONITOR CLOSELY. CALL MORRIS WITHIN REACH.
--- NOTE | 2016-05-03 10:11 | PN- CRCU ---
Subjective HPI/Critical Care Issues: The patient remains intubated and sedated. When calling his name, he attempts to open his eyes but again he is not tracking or focused. He remains on Ativan at 4 mg per hour. His MAXIMUM TEMPERATURE was 100.3 overnight. His oxygenation remained stable at 40%. He continues to have bilateral airspace disease, left greater than right suggestive of atelectasis and pleural effusions. Objective Current Medications: Current Medications Sig/Roberto Start time Last Medication Dose Route Stop Time Status Admin Acetylcysteine 2 ML BID 04/30 2200 AC 05/03 INH 0819 Albuterol Sulfate 3 ML EVERY 4 HRS/AWAKE 05/01 2000 AC 05/03 INH 0819 Fat Emulsion 400 ML Q24H 05/02 190 AC 05/02 Intravenous IV 05/03 Fat Emulsion 350 ML Q24H 05/01 1900 DC 05/01 Intravenous IV 05/02 Heparin Sodium 5,000 UNIT Q8 04/24 1400 AC 05/03 (Porcine) SC 0634 Hydromorphone HCl 2 MG Q6P PRN 04/22 0930 AC 05/02 IV 0336 Lactulose 20 GM TID 04/30 1000 DC 05/01 PO 2329 Lorazepam 100 MG Q24H 05/01 0400 AC 05/03 Dextrose/Water 1,000 ML IV 0635 Lorazepam 2 MG Q1 PRN 04/29 1615 AC 05/01 IV 2326 Meropenem 1 GM IQ8 05/03 1000 AC IV Ondansetron HCl 4 MG Q8P PRN 04/22 0600 AC IV Pantoprazole Sodium 40 MG BID 04/22 2200 AC 05/03 IV 0941 Sodium Chloride 1,000 ML Q10H 05/01 1014 AC 05/03 IV 0230 Total Parenteral 1 UNIT Q24H 05/02 1900 AC 05/02 Nutrition IV 05/03 Total Parenteral 1 UNIT Q24H 05/01 1900 DC 05/01 Nutrition IV 05/02 Vital Signs & I&O Last 24 Hrs of Vitals and I&O: Vital Signs Date Time Temp Pulse Resp B/P Pulse O2 O2 Flow FiO2 Ox Delivery Rate 05/03 08 40 05/03 800 100.5 89 26 130/60 94 Ventilator 40% 05/03 800 95 Ventilator 40% 05/03 0643 40 12/10 0400 98.3 96 26 91/49 05/03 0400 100 Ventilator 40% 05/03 0234 40 05/03 0058 40 05/03 0000 100.3 76 26 132/80 12 0000 97 Ventilator 40% 05/03 0000 100.3 76 26 132/80 93 Nasal 40% Cannula 05/02 2217 40 05/02 2000 40 05/02 2000 97.8 78 26 118/72 05/02 2000 95 Ventilator 40% 05/02 1623 40 05/02 1600 97.7 78 26 110/70 05/02 1600 96 Ventilator 40% 05/02 1600 97.7 78 26 110/70 96 Ventilator 40% 05/02 1400 40 05/02 1200 98.2 83 27 114/70 05/02 1200 92 Ventilator 40% 05/02 1129 40 Intake & Output 05/03 1600 05/03 0800 05/03 0000 Intake Total 2438.0 2359.0 Output Total 1895 2140 Balance 543.0 219.0 Intake, IV 1510 1513 Intake, Lipid 133.0 118.0 Intake, Oral 0 Intake, 795 728 TPN/PPN Output, 1075 1300 Drainage Output, 100 100 Gastric Drainage Output, Urine 720 740 Exam General Appearance: intubated, opens eyes but still not following commands Head: atraumatic Neck: supple Respiratory: no respiratory distress, bilateral anterior rhonchi, the lungs expand symmetrically and the trachea is midline Cardiovascular: regular rate/rhythm, tachycardia, S1 and S2 heard Abdomen: CONNIE drains in place, distended, surgical dressings in place, increased bowel sounds Extremities: warm and dry Skin: no cyanosis or edema Results Last 24 Hrs of Lab Results: Laboratory Tests 05/03/16 0655: pH 7.40, pCO2 26 L, pO2 97, HCO3 16 L, ABG O2 Sat (Measured) 97.0, P-50 (Temp Corrected) N, Carboxyhemoglobin 0.5 L, O2 Concentration % .40, Respiration Rate 26, O2 Delivery Method VENT, Vent Mode A/C, Expiratory Pressure 5, Tidal Volume 550, Phlebotomy Draw Site LEFT RADIAL 05/03/16 0445: Anion Gap 8, Estimated GFR > 60, Glucose 125 H, Calcium 8.6, Phosphorus 4.4, Magnesium 2.1, Total Bilirubin 1.6 H, AST 75 H, ALT 41, Albumin 2.2 L, CBC w Diff NO MAN DIFF REQ, RBC 2.97 L, MCV 96.7 H, MCH 31.4 H, RDW 15.8 H, MPV 9.8, Gran % 82.3 H, Lymphocytes % 7.4 L, Monocytes % 8.6, Eosinophils % 1.2, Basophils % 0.5, Absolute Granulocytes 11.2 H, Absolute Lymphocytes 1.0 L, Absolute Monocytes 1.2 H, Absolute Eosinophils 0.2, Absolute Basophils 0.1, PUBS MCHC 32.5 L 05/02/16 1115: pH 7.38, pCO2 27 L, pO2 96, HCO3 16 L, ABG O2 Sat (Measured) 97.0, Carboxyhemoglobin 0.4 L, O2 Concentration % 40%, Temperature 98.0, Respiration Rate 26, O2 Delivery Method ESPRIT, Vent Mode VC-AC, Expiratory Pressure 5, Tidal Volume 550, Phlebotomy Draw Site LEFT RADIAL Last 24 Hrs of Micro Results: Repeat blood cultures are pending. Diagnostic Data CXR Findings: 1. Endotracheal tube tip positioned as above. 2. There is bilateral airspace disease, left greater than right, with appearance favoring atelectasis. 3. Bilateral pleural effusions are less well appreciated than on prior. Impression/Plan Impression/Plan Impression/Plan: 1. Perforated viscus with ongoing perforation. The patient had a low-grade temperature overnight with an increasing white blood cell count suspicious of possible fluid collection/infection. Other sources of infection must be excluded as well. Yeast is a consideration in the setting of TPN. 2. MATT - improving. 3. Alcoholic hepatitis with improved bilirubin. 4. Encephalopathy - hepatic? metabolic? 5. Macrocytic anemia in the setting of alcohol use, no evidence of active bleeding. 6. Deep tissue injury - right scapula area. 7. Hyperchloremia, improving, likely from TPN. 8. Alcohol dependence/abuse, ETOH withdrawl. Recommendations: * Continue to wean Ativan down for an SAS of 3-4. * Continue current ventilator settings. * Discussed with ID - will check sputum culture, urine culture, CT scan of the chest abdomen and pelvis, and start meropenem. We will monitor the patient for possible fungemia but will hold off on anti-fungals for now. * Await input from surgery. * Continue 1/2 NS however decrease to 75 ml/hour. * MVI, thiamine, folate to continue in TPN. * Will begin weaning trials when the patient is more awake and alert. * Continue ventilator bundle with DVT and GI prophylaxis. * Skin care protocol, off load deep tissue injury area. * Continue all supportive care. * Patient's family updated at bedside. * Possible poor prognosis considering the possibility of ongoing perforation and chronic liver disease. TTS 50
--- NOTE | 2016-05-03 11:53 | CT SCAN REPORT ---
EXAMINATION: CT CHEST WITHOUT IV CONTRAST CT ABDOMEN AND PELVIS WITHOUT IV CONTRAST CLINICAL INFORMATION: 50-year-old male with fever and elevated WBC level. COMPARISON: CT exams of chest, abdomen and pelvis from 04/29/2016. TECHNIQUE: Noncontrast, multidetector CT imaging examination of the chest, abdomen and pelvis was performed. Axial images are displayed at 0.625 mm and 5 mm slice thickness. Coronal and sagittal reformatted images were generated at the technologist's workstation and submitted for review. DLP: 2053 mGy-cm FINDINGS: CHEST - The endotracheal tube is located approximately 3.5 cm above the ching. The tip of the right arm peripherally inserted catheter is at the cavoatrial junction. The enteric tube extends below the diaphragm and into the proximal stomach. Compared to 04/29/2016, no significant interval change in bilateral pleural effusions (right larger than left) accompanied by collapse/consolidation of the right lower lobe and partial collapse of the left lower lobe. There is atelectasis in the dependent aspect of the middle lobe and lingula, and the subsegmental atelectasis of the superior lingula has increased. The heart size is mildly enlarged. No pericardial effusion. Pulmonary arteries and atherosclerotic aorta are normal in caliber. No pathologic sized axillary, hilar or mediastinal lymph nodes are identified on this noncontrast examination. Symmetric appearance of gynecomastia. No acute skeletal findings within the thorax. ABDOMEN AND PELVIS - There is a relatively high level of image cause by patient's arm position along the sides. Also, patient has a large body habitus. There is hepatomegaly without evidence of focal hepatic lesion or intrahepatic bile duct dilatation. Gallbladder is physiologically distended and without evidence of calcified stones. Drainage catheter remains in stable position as it courses inferior to the region of the gallbladder neck and along the undersurface of the liver. A drainage catheter in the right perihepatic space is in stable position, as well. No acute pancreatic findings on this noncontrast examination. There is no evidence of pancreatic ductal dilatation. There is persistent nonspecific retroperitoneal/peripancreatic edema. Large spleen is 16.5 cm AP dimension. Adrenal glands are normal. Kidneys are normal in size and have normal cortical attenuation. No nephrolithiasis or hydronephrosis. Urinary bladder is decompressed. The stomach is underdistended with enteric tube located in the proximal third of the stomach. Small and large bowel are normal in caliber. Again noted are multiple colonic diverticula. There is persistent edema within the mesentery. A drainage catheter is in stable position within the right pelvis. A trace amount of ascitic fluid is present in the pelvic cul-de-sac. There are no new abdominal or pelvic fluid collections. Atherosclerotic calcification of the abdominal aorta without aneurysm. The inferior vena cava has a left-sided course. There are no enlarging lymph nodes within the abdomen or pelvis. No acute skeletal findings within the lumbar spine, pelvis or proximal femurs. The visualized components of the left total hip arthroplasty are intact. IMPRESSION: 1. Persistent moderate right pleural effusion and small left pleural effusion. 2. Persistent collapse/consolidation of right lower lobe and, to a lesser degree, left lower lobe. Subsegmental atelectasis within the superior lingula has increased. 3. Hepatosplenomegaly. Persistent small volume of ascitic fluid in the abdomen and pelvis, and edema of the mesentery. There are no newly developing fluid collections. The drainage catheters are in stable position compared to 04/29/2016. 4. Colonic diverticulosis. No significant, new findings along the gastrointestinal tract.
--- NOTE | 2016-05-03 14:55 | NUR ---
@1030-THIS RN ALONG WITH TRANSPORT AND RT TRAVELED WITH PT FOR REPEAT CTSCAN OF CHEST/ABD/PELVIS. PT LAMAR WELL. BACK TO UNIT AT 1115. REPOSITIONED IN BED. CONNIE DRAINED X 3. NEW DSG APPLIED TO CONNIE SITES. OSTOMY BAG OVER STAPLE SITE TO R ABD-DRAINED AT THIS TIME. UC AND LRC SENT AT THIS TIME. PT RESTARTED ON IV MEROPENUM, WILL ADMINISTER WHEN ARRIVES FROM PHARMACY. NGT TAPING REPLACED AND NGT NOTED AT 60CM. SMALL OPEN AREA NOTED TO OUTER TIP OF R NARES WHEN NGT IS, PT ALSO NOTED TO HAVE ECCHYMOSIS TO NIHARIKA AND SMALL OPEN BLOOD BLISTER, SCABBED. IVF DECREASED TO 75ML/HR FROM 150ML/HR. CONT TO MONITOR CLOSELY. MOUTH CARE PROVIDED.
--- NOTE | 2016-05-03 15:01 | NUR ---
@1230-ATTEMPTED TO ADMINISTER LACTULOSE ENEMA, DILUTED IN H20. UNABLE TO PASS ENEMA TUBING PAST 4 INCHES, MEETING RESISTANCE. WHEN TUBE REMOVED, PINK TINGED LIQ NOTED TO OOZE FROM RECTUM. DR PANDEY CALLED TO BEDSIDE AND REPORTED FINDINGS OF RESISTANCE AND EXPRESSED CONCERN OF ATTEMPTING FURTHER ADVANCEMENT OF ENEMA TUBING. PER , HOUSESTAFF TO CONSULT GI. PT REPOSITIONED AND ELEVATED ARMS ON PILLOWS. IV MEROPENUM ADMINISTERED. ACCUCHECK 157. FAMILY AT BEDSIDE. CONT TO MONITOR CLOSELY.
--- NOTE | 2016-05-03 15:05 | NUR ---
@1400-CPT TO RLL BY RT COMPLETED AT BEDSIDE AT THIS TIME. PT RESISTING CARE. CONT TO PROVIDE EMOTIONAL SUPPORT. ATIVAN GTT CONT AT 3MG/HR. DR. JOSEPH AT BEDSIDE TO ASSIST WITH DIFFICULTY OF PASSING ENEMA TUBING. DR JOSEPH ABLE TO PASS TUBING WITH SOME DIFFICULTY. TUBE ADVANCED APPROX 14INCHES WITH NO ABSORPTION OF LACTULOSE ENEMA. THE SOLUTION ENT, THE SOLUTION FLOWED BACK OUT OF RECTUM. PT NOTED TO HAVE MOD AMT OF PINK TINGED MUCUS FROM RECTUM. PER , RESISTANCE WAS MOST LIKELY HITTING RECTAL WALL AND NEED TO MANUVEUR TUBING TO BE ABLE TO ADVANCE. INC CARE PROVIDED, CREAM APPLIED. REPORTED ABOVE TO HOUSESTAFF. FAMILY AT BEDSIDE AND UPDATED BY HOUSESTAFF. DRAINS EMPTIED AND NEW DSG APPLIED. CONNIE #1 NOTED TO HAVE BILE COLORED, FOUL SMELLING, VISCOUS DRAINAGE COMPARED TO SERROUS LIQ NOTED IN CONNIE #2 AND #3. CONT TO MONITOR CLOSELY. CALL MORRIS WITHIN REACH.
[2016-05-03 16:00] VITALS: BP 130/70
--- NOTE | 2016-05-03 18:38 | NUR ---
@1800-ATTEMPTED LACTULOSE ENEMA AT THIS TIME. MET RESISTANCE WITH ENEMA TUBING BUT ABLE TO ADVANCE, STARTED LACTULOSE ENEMA INFUSION AND PT NOTED TO HAVE DRAINAGE OF BRIGHT RED MUCUS LIQUID FROM RECTUM. HOUSESTAFF CALLED TO BEDSIDE AND ENEMA DC'D AT THIS TIME. VSS. CONT TO MONITOR CLOSELY.
[2016-05-03 20:00] VITALS: BP 116/70
[2016-05-04] VITALS (7 sets, daily range): BP systolic 90–152; BP diastolic 42–80
[2016-05-04 04:35] LABS: ABSOLUTE BASOPHIL COUNT 0.1 /CUMM (0.0-0.2); ABSOLUTE EOSINOPHIL COUNT 0.2 /CUMM (0.0-0.7); ABSOLUTE GRANULOCYTE CT 11.4 /CUMM (1.4-6.5); ABSOLUTE LYMPH COUNT 1.1 /CUMM (1.2-3.4); ABSOLUTE MONOCYTE COUNT 0.9 /CUMM (0.10-0.60); BASOPHIL % 0.6 % (0.0-2.0); EOSINOPHIL % 1.4 % (0-5); GRANULOCYTE % 83.3 % (42.2-75.2); HEMATOCRIT 29.7 % (42-52); MEAN CORPUSCULAR HGB 31.8 PG (27.0-31.0); MEAN CORPUSCULAR HGB CONC 32.9 G/DL (33.0-37.0); MEAN CORPUSCULAR VOLUME 96.7 FL (80.0-94.0); MEAN PLATELET VOLUME 9.8 FL (7.4-10.4); PLATELET COUNT 223 /CUMM (130-400); RBC DISTRIBUTION WIDTH 15.8 % (11.5-14.5); RED BLOOD CELL CT 3.07 /CUMM (4.70-6.10); WHITE BLOOD CELL COUNT 13.6 /CUMM (4.8-10.8)
--- NOTE | 2016-05-04 04:57 | RADIOLOGY REPORT ---
EXAMINATION: XR PORTABLE CHEST CLINICAL INFORMATION: Pleural effusion. Intubation. COMPARISON: CT of chest 05/03/2016. Portable chest x-ray 05/03/2016. TECHNIQUE: Portable view of the chest was obtained. 4:31 AM FINDINGS: Endotracheal tube catheter approximately 3.6 cm above the ching. Nasogastric tube passes into the stomach but the catheter tip is visualized. The chest x-ray under penetrates the abdomen. There is a right-sided PICC line with the catheter tip at caval atrial junction. Volume of the lung is low. No significant central pulmonary vascular congestion. Bilateral pleural effusion seen on the CT of chest 05/03/2016, right larger than left is better demonstrated on the CT than the chest x-ray. There is a ventricular density at the left lateral chest which can be some segmental atelectasis or fluid in the fissure. IMPRESSION: The bilateral pleural effusions better demonstrated on prior chest CT than this portable chest x-ray exam. Fluid in the fissure versus subsegmental atelectasis at left lung base Tubes and lines in good position.
--- NOTE | 2016-05-04 05:41 | PN- General Surgery ---
Subjective Subjective: Remains intubated, sedated on Ativan gtt on minimal vent settings. Maximum temperature overnight was 100.6F early this morning. Remains on TPN/lipids. Had repeat CT scan of C/A/P yesterday due to fevers and increasing wbc's revealing bilateral pleural effusions with lower lobe collapse without evidence of intraabdominal collections. His HS drains remain in adequate place. Objective Vital Signs and I&Os Vital Signs Date Time Temp Pulse Resp B/P Pulse O2 O2 Flow FiO2 Ox Delivery Rate 05/04 0342 40 05/04 0119 40 05/04 0000 98.6 64 26 124/80 05/04 0000 99 Ventilator 40% 05/03 2245 40 05/03 2000 100.3 92 26 116/70 05/03 2000 97 Ventilator 40% 05/03 1922 40 05/03 1622 40 05/03 1600 99.7 95 26 130/70 97 Nasal 40% Cannula 05/03 1600 97 Ventilator 40% 05/03 1409 40 05/03 1200 94 Ventilator 40% 05/03 1126 40 05/03 0808 40 05/03 0800 100.5 89 26 130/60 94 Ventilator 40% 05/03 0800 95 Ventilator 40% 05/03 0643 40 Intake & Output 05/04 0805/04 0000 05/03 1600 05/03 0800 05/03 0000 05/02 1600 Intake Total 1856.0 2280.0 2438.0 2359.0 2166.0 Output Total 1939 1950 1895 2140 1885 Balance -84.0 330.0 543.0 219.0 281.0 Intake, IV 941 1358 1510 1513 1330 Intake, Lipid 134.0 132.0 133.0 118.0 197.0 Intake, Oral 0 0 0 Intake, Other 0 Intake, 781 790 795 728 639 TPN/PPN Number 1 1 Bowel Movements Output, 2257 195 2159 1300 1250 Drainage Output, 100 200 100 100 50 Gastric Drainage Output, Other 300 Output, Urine 640 550 720 740 585 Physical Exam: Gen: AAOx0. Intubated, sedated. Does not respond to verbal command this morning. Cor: S1+S2+ regular rate and rhythm Lungs: diminished breath sounds to grisel lung nathan. Rhonchi grisel. Abd: soft, ND, +BS x4. Dressing C/D/I around HS drains. Ext: no edema to grisel lower extremities. Current Medications: Current Medications Sig/Roberto Start time Last Medication Dose Route Stop Time Status Admin Acetylcysteine 2 ML BID 04/30 220 AC 05/03 INH 2030 Albuterol Sulfate 3 ML EVERY 4 HRS/AWAKE 05/01 2000 AC 05/03 INH 2028 Fat Emulsion 400 ML 1900 05/03 1900 AC 05/03 Intravenous IV 05/04 Fat Emulsion 400 ML Q24H 05/02 1900 DC 05/02 Intravenous IV 05/03 Heparin Sodium 5,000 UNIT Q8 04/24 1400 AC 05/03 (Porcine) SC 2201 Hydromorphone HCl 2 MG Q6P PRN 04/22 0930 AC 05/03 IV 2252 Lactulose 1 BOT Q6 05/03 1200 DC IL Lorazepam 100 MG Q24H 05/01 0400 AC 05/03 Dextrose/Water 1,000 ML IV 0635 Lorazepam 2 MG Q1 PRN 04/29 1615 AC 05/03 IV 1800 Meropenem 1 GM IQ8 05/03 1000 AC 05/04 IV 0000 Nystatin 1 LESLIE Q6 05/03 1906 AC 05/04 TOP 0000 Ondansetron HCl 4 MG Q8P PRN 04/22 0600 AC IV Pantoprazole Sodium 40 MG BID 04/22 220 AC 05/03 IV 2202 Sodium Chloride 1,000 ML Q10H 05/01 1014 AC 05/03 IV 2027 Total Parenteral 1 UNIT 1900 05/03 1900 AC 05/03 Nutrition IV 05/04 Total Parenteral 1 UNIT Q24H 05/02 1900 DC 05/02 Nutrition IV 05/03 Results Last 48 Hours of Labs: Laboratory Tests 05/04 05/04 0500 0400 Blood Gas pH (7.35 - 7.45 PH) 7.37 pCO2 (35 - 45 TORR) 30 L pO2 (80 - 100 TORR) 102 H HCO3 (21 - 28 MEQ/L) 17 L ABG O2 Sat (Measured) (>96.0 %) 96.0 P-50 (Temp Corrected) Y Carboxyhemoglobin (1.5 - 5.0 %) 0.2 L O2 Concentration % 40% Temperature (97.0 - 100.0 FARH) 100.6 H Respiration Rate (BPM) 26 O2 Delivery Method ESPRIT Vent Mode AC Expiratory Pressure (CMH2O/P) 5 Tidal Volume (CC) 550 Chemistry Sodium (137 - 145 mmol/L) 135 L Potassium (3.5 - 5.1 mmol/L) 5.2 H Chloride (98 - 107 mmol/L) 108 H Carbon Dioxide (22 - 30 mmol/L) 19 L Anion Gap (5 - 16) 7 BUN (9 - 20 mg/dL) 35 H Creatinine (0.7 - 1.2 mg/dL) 0.8 Estimated GFR (>60 ml/min) > 60 Glucose (65 - 99 mg/dL) 124 H Calcium (8.4 - 10.2 mg/dL) 8.8 Phosphorus (2.5 - 4.5 mg/dL) 5.1 H Magnesium (1.6 - 2.3 mg/dL) 2.0 Total Bilirubin (0.2 - 1.3 mg/dL) 1.8 H AST (17 - 59 U/L) 83 H ALT (21 - 72 U/L) 38 Albumin (3.5 - 5.0 g/dL) 2.2 L Hematology CBC w Diff MAN DIFF ORDERED WBC (4.8 - 10.8 /CUMM) 13.6 H RBC (4.70 - 6.10 /CUMM) 3.07 L Hgb (14.0 - 18.0 G/DL) 9.8 L Hct (42 - 52 %) 29.7 L MCV (80.0 - 94.0 FL) 96.7 H MCH (27.0 - 31.0 PG) 31.8 H RDW (11.5 - 14.5 %) 15.8 H Plt Count (130 - 400 /CUMM) 223 MPV (7.4 - 10.4 FL) 9.8 Gran % (42.2 - 75.2 %) 83.3 H Lymphocytes % (20.5 - 51.1 %) 8.0 L Monocytes % (1.7 - 9.3 %) 6.7 Eosinophils % (0 - 5 %) 1.4 Basophils % (0.0 - 2.0 %) 0.6 Absolute Granulocytes (1.4 - 6.5 /CUMM) 11.4 H Absolute Lymphocytes (1.2 - 3.4 /CUMM) 1.1 L Absolute Monocytes (0.10 - 0.60 /CUMM) 0.9 H Absolute Eosinophils (0.0 - 0.7 /CUMM) 0.2 Absolute Basophils (0.0 - 0.2 /CUMM) 0.1 Platelet Estimate (ADEQUATE) ADEQUATE Ovalocytes RARE PUBS MCHC (33.0 - 37.0 G/DL) 32.9 L Miscellaneous Phlebotomy Draw Site LEFT RADIAL 05/03 05/03 9451 2824 Blood Gas pH (7.35 - 7.45 PH) 7.40 pCO2 (35 - 45 TORR) 26 L pO2 (80 - 100 TORR) 97 HCO3 (21 - 28 MEQ/L) 16 L ABG O2 Sat (Measured) (>96.0 %) 97.0 P-50 (Temp Corrected) N Carboxyhemoglobin (1.5 - 5.0 %) 0.5 L O2 Concentration % .40 Respiration Rate (BPM) 26 O2 Delivery Method VENT Vent Mode A/C Expiratory Pressure (CMH2O/P) 5 Tidal Volume (CC) 550 Chemistry Sodium (137 - 145 mmol/L) 138 Potassium (3.5 - 5.1 mmol/L) 4.9 Chloride (98 - 107 mmol/L) 111 H Carbon Dioxide (22 - 30 mmol/L) 19 L Anion Gap (5 - 16) 8 BUN (9 - 20 mg/dL) 39 H Creatinine (0.7 - 1.2 mg/dL) 0.8 Estimated GFR (>60 ml/min) > 60 Glucose (65 - 99 mg/dL) 125 H Calcium (8.4 - 10.2 mg/dL) 8.6 Phosphorus (2.5 - 4.5 mg/dL) 4.4 Magnesium (1.6 - 2.3 mg/dL) 2.1 Total Bilirubin (0.2 - 1.3 mg/dL) 1.6 H AST (17 - 59 U/L) 75 H ALT (21 - 72 U/L) 41 Albumin (3.5 - 5.0 g/dL) 2.2 L Hematology CBC w Diff NO MAN DIFF REQ WBC (4.8 - 10.8 /CUMM) 13.6 H RBC (4.70 - 6.10 /CUMM) 2.97 L Hgb (14.0 - 18.0 G/DL) 9.3 L Hct (42 - 52 %) 28.7 L MCV (80.0 - 94.0 FL) 96.7 H MCH (27.0 - 31.0 PG) 31.4 H RDW (11.5 - 14.5 %) 15.8 H Plt Count (130 - 400 /CUMM) 203 MPV (7.4 - 10.4 FL) 9.8 Gran % (42.2 - 75.2 %) 82.3 H Lymphocytes % (20.5 - 51.1 %) 7.4 L Monocytes % (1.7 - 9.3 %) 8.6 Eosinophils % (0 - 5 %) 1.2 Basophils % (0.0 - 2.0 %) 0.5 Absolute Granulocytes (1.4 - 6.5 /CUMM) 11.2 H Absolute Lymphocytes (1.2 - 3.4 /CUMM) 1.0 L Absolute Monocytes (0.10 - 0.60 /CUMM) 1.2 H Absolute Eosinophils (0.0 - 0.7 /CUMM) 0.2 Absolute Basophils (0.0 - 0.2 /CUMM) 0.1 PUBS MCHC (33.0 - 37.0 G/DL) 32.5 L Miscellaneous Phlebotomy Draw Site LEFT RADIAL 05/02 1115 Blood Gas pH (7.35 - 7.45 PH) 7.38 pCO2 (35 - 45 TORR) 27 L pO2 (80 - 100 TORR) 96 HCO3 (21 - 28 MEQ/L) 16 L ABG O2 Sat (Measured) (>96.0 %) 97.0 Carboxyhemoglobin (1.5 - 5.0 %) 0.4 L O2 Concentration % 40% Temperature (97.0 - 100.0 FARH) 98.0 Respiration Rate (BPM) 26 O2 Delivery Method ESPRIT Vent Mode VC-AC Expiratory Pressure (CMH2O/P) 5 Tidal Volume (CC) 550 Miscellaneous Phlebotomy Draw Site LEFT RADIAL Assessment/Plan Assessment/Plan A: 50 year old male POD #13 s/p laparoscopic em patch for perforated duodenal ulcer with purulent peritonitis. Hospital course complicated by alcohol withdrawl requiring intubation/sedation, MATT-resolving, encephalopathy (hepatic vs metabolic) receiving lactulose enemas and most recently, HS drain #1 with what appears to be a leak from GI tract. On day #1 of meropenem for increasing leukocytosis and fevers. Plan: Continue meropenem. Consider adding anti-fungal agent in setting of duodenal perforation and rising leukocytosis/low grade temperatures. Continue HS drains (Drain #1 with bile leak) Attempts to wean off ventilator per ICU team. No acute surgical intervention at this time.
--- NOTE | 2016-05-04 08:22 | PN- Resident CRCU ---
Subjective HPI/CRCU Issues: patient is a 50 y/o Male, with a significant past medical history of hypertension, hyperlipidemia, GERD, diverticulosis, degenerative joint disease, a vascular necrosis status post hip replacement, fatty liver disease, alcohol abuse presented with chronic alcohol abuse, nausea, vomting, abd distension and pain which got worse so he presented to ED on 04/21/2016. On Evaluation CT scan showed pneumoperitoneum, moderate ascites.On examination the abdomen was distended and tender to palpation , so diagnostic paracentesis was done which showed WBC 9504, RBC 2156. Because of the perforation, It seems that patient developed the secondary bacterial peritonitis. We took surgical consultation. The next couple of hours patient went into septicemia and shock. So he was given IV fluids and prophylactic antibiotics including ceftriaxone metronidazole and vancomycin. We catheterized the patient. Despite of these measures his blood pressure going down , so we took surgical consultation and plan for emergent surgery. Meantime, we intubated the patient and put him on mechanical ventilation(assist control mode, TV-500, respiratory rate 28, PEEP 5, FiO2 100%), triple-lumen catheter was placed in the right side of jugular vein. Patients blood pressure was continuosly going down, so we started him on Levothroid/vasopressin. We also started him on fentanyl and propofol drip. The culture of the ascites fluid came back positive for gram-negative. We took the consult from infectious disease specialist/Abdullahi Osuna MD. He advised to change ceftriaxone to ceftazidime and advised to wait for sensitivities report. Patient went to surgery on 04/22/2016. In postop, His blood pressure was 119/62. He is improving after surgery. When blood pressure remained maintained to normal , we stopped all the pressures and also slowly stopped sedation. We tried weaning multiple times. In between the patient started having fever of 100.2, awaited. CT scan of chest/abdomen/pelvis on 04/29/2016 which showed moderate right-sided pleural effusion and consolidation and collapse of right lower lobe. CRCU issues - Perforated duodenal ulcer s/p exploratory laparoscopy with grahm plication of duodenal ulcer Secondary bacterial Peritonitis Septic shock with MODS/ MATT improving/ Lactic acidosis improving/ Alcoholic hepatitis with transaminitis Ascitis Sigmoid Diverticulitis Hypertension Hyperlipidemia Morbidly Obese 24 Hour Events: unventful Objective Vital Signs & I&O Last 8 Hrs of Vitals and I&O: Maximum temprature -100.5 BP - 93/43 HR - 64 RR -26 On ventilator -assist-control, tidal volume 550, respiratory rate 24, FiO2 40%, SPO2 96% Exam General Appearance: well developed/nourished, intubated, obese Head: atraumatic, normal appearance Ears, Nose, Throat: patient is intubated and NG tube in place Neck: normal inspection, supple Respiratory: normal breath sounds, chest non-tender, no respiratory distress, quiet respiration, crackles Cardiovascular: regular rate/rhythm, edema Gastrointestinal: soft, tenderness, BS + Extremities: normal inspection, normal capillary refill, normal range of motion Weaning Parameters NIF: 17 Minute Volume: 5.09 Resp rate: 26 Vt: 150 Heart Rate: 84 Weaning Schedule Start Time: 1105 Minute Volume: 10.3 Resp Rate: 18 Vt: 621 Heart Rate: 83 End Time: 1107 Minute Volume: 0 Resp Rate: 0 Vt: 0 Heart Rate: 83 Current Medications: Current Medications Sig/Roberto Start time Last Medication Dose Route Stop Time Status Admin Acetylcysteine 2 ML BID 04/30 220 AC 05/04 INH 0821 Albuterol Sulfate 3 ML EVERY 4 HRS/AWAKE 05/01 2000 AC 05/04 INH 1121 Fat Emulsion 400 ML 1900 05/04 1900 AC Intravenous IV 05/05 1859 Fat Emulsion 400 ML 1900 05/03 1900 AC 05/03 Intravenous IV 05/04 1859 2026 Fat Emulsion 400 ML Q24H 05/02 1900 DC 05/02 Intravenous IV 05/03 1859 1958 Heparin Sodium 5,000 UNIT Q8 04/24 1400 AC 05/04 (Porcine) SC 1313 Hydromorphone HCl 2 MG Q6P PRN 04/22 0930 05/04 IV 1043 Lactulose 1 BOT Q6 05/03 1200 DC VA Lorazepam 100 MG Q24H 05/01 0400 AC 05/04 Dextrose/Water 1,000 ML IV 1039 Lorazepam 2 MG Q1 PRN 04/29 1615 AC 05/04 IV 1039 Meropenem 1 GM IQ8 05/03 1000 AC 05/04 IV 0815 Nystatin 1 LESLIE Q6 05/03 1906 05/04 TOP 1313 Ondansetron HCl 4 MG Q8P PRN 04/22 0600 AC IV Pantoprazole Sodium 40 MG BID 04/22 2200 AC 05/04 IV 0815 Sodium Chloride 1,000 ML Q20H 05/04 1000 AC 05/04 IV 0953 Sodium Chloride 1,000 ML Q10H 05/01 1014 DC 05/04 IV 0913 Total Parenteral 1 UNIT 1900 05/04 1900 AC Nutrition IV 05/05 1859 Total Parenteral 1 UNIT 1900 05/03 1900 AC 05/03 Nutrition IV 05/04 Total Parenteral 1 UNIT Q24H 05/02 190 DC 05/02 Nutrition IV 05/03 Impression/Plan Impression/Problem List Impression: Impression and Plan - Patient is awake, following the commands. He is off the levofed/fantanyl/ antibiotics. He is on low-dose Ativan drip. Patient is leaking from the operated side, surgeons are already awair, but it is making prognosis at poor side. POD-13 Ventilator -D13 right sided PICC line - D7, CONNIE drains-3 - D13 Foleys cathter -D13 ABG - pH-7.37, PCO2 30, PO2 102, bicarbonate 17 Respiratory * According to Dr. Arroyo, We'll keep the CVP of 12 and BP > [address] Balderas says keep SAS 2-3. * If Blood pressure remained below, then we will start patient on low-dose levofed. Currently he is off Levofed. * He is on ventilator, Ventilator Settings is -AC, TV-550, IPAP -24, RR-24, PEEP -5, Fio2 40. * There is decreased air entry on the right middle and lower lobe * 05/01/2016 Patient was having right sided pleural effusion. On ultrasound it was found,it is very mild and the radiologist says that there is more chances of pneumothorax, even If they try even for diagnostic purposes.So it was decided not to do a thoracocentesis * we will try for weaning when patient become more alert. Neurology * Although patient is awake but responding to commands.We were suspecting Wernicke's encephalopathy. So we gave high dose thiamine for total 9 days( 05/02) * We did CT head which doent showed any intracranial pathology. * We also checked for serum ammonia which come back to 45 (04/29/2016) * Patient is also in alcohol witdrawl, so we will continue ativan drip. Infectious * Ascitic fluids is growing -enterobacter cloacae and alpha strept. * We will follow ID rcms * Discussed with Dr Osuna, patient doesnt need antibiotics. We will stop Meopenem 1g iv 8hrly, as there is no focus and patient already had 7 days course of antibiotics.04/30/2016. * Inj meropenem 1g Q8 is restarted on 05/03/2016. * on 04/22/2016 To rule out the source of infection. We orderd CT chest/abdomen/ pelvis, which showed moderate right-sided pleural effusion with right lower lobe consolidation and collapse. * CT scan on 05/04/2016 reported persistent moderate right pleural effusion and small left pleural effusion. Persistent collapse/consolidation of right lower lobe and, to a lesser degree, left lower lobe. Subsegmental atelectasis within the superior lingula has increased. Hepatosplenomegaly. Persistent small volume of ascitic fluid in the abdomen and pelvis, and edema of the mesentery. There are no newly developing fluid collections. The drainage catheters are in stable position compared to 04/29/2016. * We will follow sputum culture, urine culture. * Also we will monitor for possible fungemia but will hold off on anti-fungals for now. Hematology - * Hb-9.8 * We will suplement MultiVit, Thiamine, folic acid. Cardiology * Patient is hemodynamically stable Gastroenterology * there was greenish fluid in the CONNIE-1 drain. * According to the surgeons, TPN, weaning trial,Nothing by mouth and NG tube decompression, GI prophylaxis, monitoring CONNIE output. * There are 3 CONNIE drains * Abdoman is soft, there are mild bowel sounds on examiantion * We will do strict Intake output Charting * We will follow GI rcms * We stopped albumin on 04/29/2016. * We started giving lactulose from NG tube but residual was >100cc.So we stopped it and started him on lactulose enemas Q6 PRN Urology * BUN -35 Cr-0.8 * We'll monitor it regularly * Urine output in last 24 hrs is cc * We will continue IV fluids changed to NS and 50ml/hr * Strict I/O charting 1125 Endocrine * TSH -8.9, T4 -1.85 * It seems patient is having Sick Euthyroid syndrome. * We discussed with endocrinology. * We will repeat TFT after patient get recovered. Skin * There are multiple dressings on the skin, abdomen for drain, * PICC line is on the right-hand Diet -continue TPN as advised by dietitian. DVT prophylaxis -ALPS/ Heparin CODE STATUS-full code Problem List: 1. Metabolic alkalosis 2. Pleural effusion 3. At risk for ventilator-associated event 4. Ascites Pain Ratin Tomorrow's Labs & Rationales: cbc,icu bundle,cxr Plan DVT/Prophylaxis: mechanical
--- NOTE | 2016-05-04 09:20 | PN- Infect Dx ---
Subjective Subjective: MAXIMUM TEMPERATURE 100.6. He is unable to provide any history. Objective Last 24 Hrs of Vital Signs/I&O Vital Signs Date Time Temp Pulse Resp B/P Pulse O2 O2 Flow FiO2 Ox Delivery Rate 05/04 0825 40 05/04 08 97.8 76 26 90/42 05/04 0800 99 Ventilator 40% 05/04 08 97.8 76 26 90/42 99 Ventilator 40% 05/04 0602 40 05/04 0400 100.6 102 26 152/80 05/04 0400 97 Ventilator 40% 05/04 0342 40 05/04 0119 40 05/04 0000 98.6 64 26 124/80 05/04 0000 99 Ventilator 40% 05/04 0000 98.6 72 26 124/80 100 Ventilator 40% 05/03 2245 40 05/03 2000 100.3 92 26 116/70 05/03 2000 97 Ventilator 40% 05/03 1922 40 05/03 1622 40 05/03 1600 99.7 95 26 130/70 97 Nasal 40% Cannula 05/03 1600 97 Ventilator 40% 05/03 1409 40 05/03 1200 94 Ventilator 40% 05/03 1126 40 Intake & Output 05/04 1600 05/04 0800 05/04 0000 Intake Total 1869.0 1856.0 Output Total 1845 1940 Balance 24.0 -84.0 Intake, IV 930 941 Intake, Lipid 134.0 134.0 Intake, Oral 0 0 Intake, 805 781 TPN/PPN Number 1 Bowel Movements Output, 1240 1200 Drainage Output, 150 100 Gastric Drainage Output, Urine 455 640 Physical Exam Other Physical Findings: He appears awake but not responsive on the ventilator Lungs bilateral rhonchi Heart regular rhythm with no murmur Abdomen is distended, positive bowel sounds; 3 CONNIE drains remain in place with mostly serous fluid Extremities no cyanosis, clubbing or edema; PICC in the right upper extremity with no inflammation at the site Ann catheter remains in place Results Last 24 Hours of Lab Results: Laboratory Tests 05/04 05/04 0500 0400 Blood Gas pH (7.35 - 7.45 PH) 7.37 pCO2 (35 - 45 TORR) 30 L pO2 (80 - 100 TORR) 102 H HCO3 (21 - 28 MEQ/L) 17 L ABG O2 Sat (Measured) (>96.0 %) 96.0 P-50 (Temp Corrected) Y Carboxyhemoglobin (1.5 - 5.0 %) 0.2 L O2 Concentration % 40% Temperature (97.0 - 100.0 FARH) 100.6 H Respiration Rate (BPM) 26 O2 Delivery Method ESPRIT Vent Mode AC Expiratory Pressure (CMH2O/P) 5 Tidal Volume (CC) 550 Chemistry Sodium (137 - 145 mmol/L) 135 L Potassium (3.5 - 5.1 mmol/L) 5.2 H Chloride (98 - 107 mmol/L) 108 H Carbon Dioxide (22 - 30 mmol/L) 19 L Anion Gap (5 - 16) 7 BUN (9 - 20 mg/dL) 35 H Creatinine (0.7 - 1.2 mg/dL) 0.8 Estimated GFR (>60 ml/min) > 60 Glucose (65 - 99 mg/dL) 124 H Calcium (8.4 - 10.2 mg/dL) 8.8 Phosphorus (2.5 - 4.5 mg/dL) 5.1 H Magnesium (1.6 - 2.3 mg/dL) 2.0 Total Bilirubin (0.2 - 1.3 mg/dL) 1.8 H AST (17 - 59 U/L) 83 H ALT (21 - 72 U/L) 38 Albumin (3.5 - 5.0 g/dL) 2.2 L Hematology CBC w Diff MAN DIFF ORDERED WBC (4.8 - 10.8 /CUMM) 13.6 H RBC (4.70 - 6.10 /CUMM) 3.07 L Hgb (14.0 - 18.0 G/DL) 9.8 L Hct (42 - 52 %) 29.7 L MCV (80.0 - 94.0 FL) 96.7 H MCH (27.0 - 31.0 PG) 31.8 H RDW (11.5 - 14.5 %) 15.8 H Plt Count (130 - 400 /CUMM) 223 MPV (7.4 - 10.4 FL) 9.8 Gran % (42.2 - 75.2 %) 83.3 H Lymphocytes % (20.5 - 51.1 %) 8.0 L Monocytes % (1.7 - 9.3 %) 6.7 Eosinophils % (0 - 5 %) 1.4 Basophils % (0.0 - 2.0 %) 0.6 Absolute Granulocytes (1.4 - 6.5 /CUMM) 11.4 H Absolute Lymphocytes (1.2 - 3.4 /CUMM) 1.1 L Absolute Monocytes (0.10 - 0.60 /CUMM) 0.9 H Absolute Eosinophils (0.0 - 0.7 /CUMM) 0.2 Absolute Basophils (0.0 - 0.2 /CUMM) 0.1 Platelet Estimate (ADEQUATE) ADEQUATE Ovalocytes RARE PUBS MCHC (33.0 - 37.0 G/DL) 32.9 L Miscellaneous Phlebotomy Draw Site LEFT RADIAL Last 24 Hours of Garcia Results: Blood cultures 2 May 02 negative Urine culture May 03 negative Sputum culture May 03 mixed goldie Recent Imaging Studies: Chest x-ray May 04 atelectasis at the left lung base; bilateral pleural effusions CT of the chest, abdomen and pelvis May 04 reveals persistent moderate right pleural effusion and small left pleural effusion; persistent collapse/ consolidation of the right lower lobe and, to a lesser degree, the left lower lobe; increased subsegmental atelectasis within the superior lingula; persistent small volume of ascitic fluid in the abdomen and pelvis, with no newly developing fluid collections Assessment/Plan Impression: Condition remains poor with recurrent low-grade fevers and increase in his white blood cell count coinciding with the finding of a presumed leak from his perforated ulcer, for which he was restarted on Meropenem yesterday. The recent CT scan does not reveal any collection now 12 days status post laparoscopic Clint plication of a perforated duodenal ulcer. He is otherwise stable with renal and respiratory status unchanged. The role of antifungal prophylaxis is unclear at this time, with no evidence of candidal colonization on his recent cultures to date, though he is at increased risk with broad-spectrum antibiotics and TPN. Suggestion: 1. Further evaluation/management of the presumed duodenal leak per Surgery 2. Follow-up recent cultures 3. Continue Meropenem pending above
--- NOTE | 2016-05-04 10:58 | PN- CRCU ---
Subjective HPI/Critical Care Issues: The patient remains intubated, on mechanical ventilation. He is intermittently agitated. His MAXIMUM TEMPERATURE was 100.5. His oxygenation remained stable at 40%. He continues to have significant output through his CONNIE drains. CONNIE drain #1 continues to appear different than the other 2 drains, noting serosanguineous fluid is now coming out. He continues to have electrolyte abnormalities noting that the patient's potassium is 5.2 this morning. He had a CT scan of the chest abdomen and pelvis which demonstrated a persistent moderate right pleural effusion with a small left pleural effusion. There is also persistent collapse of the right lower lobe with some atelectasis in the left lower lobe. Hepatosplenomegaly was seen and a small amount of ascitic fluid was present. There is no evidence of abscess or new fluid collections. The patient 's white blood cell count remains unchanged. Objective Current Medications: Current Medications Sig/Roberto Start time Last Medication Dose Route Stop Time Status Admin Acetylcysteine 2 ML BID 04/30 2200 AC 05/04 INH 0821 Albuterol Sulfate 3 ML EVERY 4 HRS/AWAKE 05/01 2000 AC 05/04 INH 0821 Fat Emulsion 400 ML 1900 05/04 1900 AC Intravenous IV 05/05 1859 Fat Emulsion 400 ML 1900 05/03 1900 AC 05/03 Intravenous IV 05/04 1859 2026 Fat Emulsion 400 ML Q24H 05/02 1900 DC 05/02 Intravenous IV 05/03 1859 1958 Heparin Sodium 5,000 UNIT Q8 04/24 1400 AC 05/04 (Porcine) SC 0644 Hydromorphone HCl 2 MG Q6P PRN 04/22 0930 AC 05/04 IV 1043 Lactulose 1 BOT Q6 05/03 1200 DC IL Lorazepam 100 MG Q24H 05/01 0400 AC 05/04 Dextrose/Water 1,000 ML IV 1039 Lorazepam 2 MG Q1 PRN 04/29 1615 AC 05/04 IV 1039 Meropenem 1 GM IQ8 05/03 1000 AC 05/04 IV 0815 Nystatin 1 LESLIE Q6 05/03 1906 AC 05/04 TOP 0643 Ondansetron HCl 4 MG Q8P PRN 04/22 0600 AC IV Pantoprazole Sodium 40 MG BID 04/22 2200 AC 05/04 IV 0815 Sodium Chloride 1,000 ML Q20H 05/04 1000 AC 05/04 IV 0953 Sodium Chloride 1,000 ML Q10H 05/01 1014 DC 05/04 IV 0913 Total Parenteral 1 UNIT 1900 05/04 1900 AC Nutrition IV 05/05 1859 Total Parenteral 1 UNIT 1900 05/03 190 AC 05/03 Nutrition IV 05/04 Total Parenteral 1 UNIT Q24H 05/02 190 DC 05/02 Nutrition IV 05/03 Vital Signs & I&O Last 24 Hrs of Vitals and I&O: Vital Signs Date Time Temp Pulse Resp B/P Pulse O2 O2 Flow FiO2 Ox Delivery Rate 05/04 0825 40 05/04 08 97.8 76 26 90/42 05/04 0800 99 Ventilator 40% 05/04 0800 97.8 76 26 90/42 99 Ventilator 40% 05/04 0602 40 05/04 0400 100.6 102 26 152/80 05/04 0400 97 Ventilator 40% 05/04 0342 40 05/04 0119 40 05/04 0000 98.6 64 26 124/80 05/04 0000 99 Ventilator 40% 05/04 0000 98.6 72 26 124/80 100 Ventilator 40% 05/03 2245 40 05/03 2000 100.3 92 26 116/70 05/03 2000 97 Ventilator 40% 05/03 1922 40 05/03 1622 40 05/03 1600 99.7 95 26 130/70 97 Nasal 40% Cannula 05/03 1600 97 Ventilator 40% 05/03 1409 40 05/03 1200 94 Ventilator 40% 05/03 1126 40 Intake & Output 05/04 1600 05/04 0800 12 0000 Intake Total 1869.0 1856.0 Output Total 1845 1940 Balance 24.0 -84.0 Intake, IV 930 941 Intake, Lipid 134.0 134.0 Intake, Oral 0 0 Intake, 805 781 TPN/PPN Number 1 Bowel Movements Output, 1240 1200 Drainage Output, 150 100 Gastric Drainage Output, Urine 455 640 Exam General Appearance: intubated, intermittently agitated, moving all extremities, opens eyes but not following commands Head: atraumatic Neck: supple Respiratory: no respiratory distress, bilateral anterior rhonchi, lungs expand symmetrically and the trachea is midline Cardiovascular: regular rate/rhythm, tachycardia, S1 and S2 heard Abdomen: CONNIE drains in place, distended, surgical dressings in place, decreased bowel sounds Extremities: warm and dry Skin: no cyanosis or edema Results Last 24 Hrs of Lab Results: Laboratory Tests 05/04/16 0500: pH 7.37, pCO2 30 L, pO2 102 H, HCO3 17 L, ABG O2 Sat (Measured) 96.0, P-50 ( Temp Corrected) Y, Carboxyhemoglobin 0.2 L, O2 Concentration % 40%, Temperature 100.6 H, Respiration Rate 26, O2 Delivery Method ESPRIT, Vent Mode AC, Expiratory Pressure 5, Tidal Volume 550, Phlebotomy Draw Site LEFT RADIAL 05/04/16 0400: Anion Gap 7, Estimated GFR > 60, Glucose 124 H, Calcium 8.8, Phosphorus 5.1 H, Magnesium 2.0, Total Bilirubin 1.8 H, AST 83 H, ALT 38, Albumin 2.2 L, CBC w Diff MAN DIFF ORDERED, RBC 3.07 L, MCV 96.7 H, MCH 31.8 H, RDW 15.8 H, MPV 9.8, Gran % 83.3 H, Lymphocytes % 8.0 L, Monocytes % 6.7, Eosinophils % 1.4, Basophils % 0.6, Absolute Granulocytes 11.4 H, Absolute Lymphocytes 1.1 L, Absolute Monocytes 0.9 H, Absolute Eosinophils 0.2, Absolute Basophils 0.1, Platelet Estimate ADEQUATE, Ovalocytes RARE, PUBS MCHC 32.9 L Diagnostic Data CXR Findings: The bilateral pleural effusions better demonstrated on prior chest CT than this portable chest x-ray exam. Fluid in the fissure versus subsegmental atelectasis at left lung base Tubes and lines in good position. CT Scan Findings: 1. Persistent moderate right pleural effusion and small left pleural effusion. 2. Persistent collapse/consolidation of right lower lobe and, to a lesser degree , left lower lobe. Subsegmental atelectasis within the superior lingula has increased. 3. Hepatosplenomegaly. Persistent small volume of ascitic fluid in the abdomen and pelvis, and edema of the mesentery. There are no newly developing fluid collections. The drainage catheters are in stable position compared to 10/2015. 4. Colonic diverticulosis. No significant, new findings along the gastrointestinal tract. Impression/Plan Impression/Plan Impression/Plan: 1. Perforated viscus with ongoing perforation. The patient had a low-grade temperature overnight with an increasing white blood cell count suspicious of possible fluid collection/infection. Other sources of infection must be excluded as well. Yeast is a consideration in the setting of TPN. 2. MATT - improving. 3. Alcoholic hepatitis with improved bilirubin. 4. Encephalopathy - hepatic? metabolic? 5. Macrocytic anemia in the setting of alcohol use, no evidence of active bleeding. 6. Deep tissue injury - right scapula area. 7. Hyperchloremia, improving, likely from TPN. 8. Alcohol dependence/abuse, ETOH withdrawl. 9. Electrolyte abnormalities. Recommendations: * Continue to wean Ativan down for an SAS of 3-4. * Continue current ventilator settings. * Continue meropenem, follow up culture results. * Await input from surgery. * Change to normal saline at 50 ML per hour. * Adjust TPN to correct metabolic derangements. * MVI, thiamine, folate to continue in TPN. * Will begin weaning trials when the patient is more awake and alert. * Continue ventilator bundle with DVT and GI prophylaxis. * Skin care protocol, off load deep tissue injury area. * Continue all supportive care. * Patient's family again updated at bedside. * Possible poor prognosis considering the possibility of ongoing perforation and chronic liver disease. TTS 45
--- NOTE | 2016-05-04 11:21 | NUR ---
0800: RECEIVED PT IN BED. DROWSY/AROUSABLE. ON ATIVAN GTT AT 3MG/HR. SAS 4-5. PUPILS EQUAL AND REACTIVE. PT UNABLE TO FOLLOW COMMANDS, HOWEVER DOES MOVE ALL EXTREMITIES. VENTED #8, TAPED AT 24CM TO LEFT LIP. SETTINGS AC-26 550/40/5. RHONCHI NOTED THROUGHOUT LUNG DE PAZ, RESP AT BEDSIDE, PT SUCTIONED, MOUTH CARE PROVIDED. NSR ON MONITOR RATE 60-90'S. AFEBRILE, HOWEVER PT IS SWEATY. MANUAL B/P 90/42. ABDOMEN D/S. BOWEL SOUNDS ABSENT, 3 CONNIE DRAINS TO ABDOMEN. CONNIE #2 AND #3 DRAINING SERROUS FLUID, CONNIE #1 HAS BILE COLORED DRAINAGE. RIGHT ABDOMEN LAP SITE HAS OSTOMY BAG OVER SITE TO COLLECT DRAINAGE, SERROUS IN COLOR. STERLING IN PLACE FROM -, OUTPUT PATRICK IN COLOR BUT ADEQUATE AMOUNTS. PT HAS DTI TO RIGHT SCAPULA, AND MULTIPLE LITTLE FLUID FILLED BLISTERS TO ABDOMEN AND PICC LINE AREA DUE TO TAPE. NYSTATIN APPLIED TO NECK CREASE. BILATERAL WRIST RESTRAINTS IN PLACE DUE TO AGITATION AND PT PULLING AT LINES AND VENT. NIHARIKA PICC LINE IN PLACE. TPN @ 100M/HR, LIPIS AT 16.7 ML/HR THRU RYAN PORT, IVF @ 75 ML/HR AND ATIVAN GTT AT 30ML/HR VIA WHITE PORT ON PICC LINE. RED PORT OPEN, BIOPATCH IN PLACE. + BLOOD RETURN. CIWA 6. WILL MONITOR.
--- NOTE | 2016-05-04 11:31 | NUR ---
1000: IVF CHANGED TO NS, IV TUBING CHANGED. TURNED AND REPOSITIONED, BACK CARE PROVIDED. WILL MONITOR.
--- NOTE | 2016-05-04 11:31 | NUR ---
0820: SAS 5, PT PUSHING ON BED WITH FEET, PULLING AT WRIST RESTRAINTS, 2MG IV ATIVAN GIVEN VIA PUMP. PT SUCTIONED VIA VENT AND ORALLY. WILL MONITOR.
--- NOTE | 2016-05-04 11:34 | NUR ---
1040: SAS 5, PT VERY RESTLESS, AGITATED, PULLING AT RESTRAINTS. PUSHING DOWN ON BED WITH LEGS, THRASHING HEAD FROM SIDE TO SIDE. 2MG IV ATIVAN GIVEN. 2MG IV DILAUDID GIVEN. WILL MONITOR.
--- NOTE | 2016-05-04 11:46 | NUR ---
RT AT BEDSIDE, ETT RETAPED AND MOVED TO RIGHT SIDE, REMAINS AT 24CM.
--- NOTE | 2016-05-04 12:29 | NUR ---
SAS 4, PT CALM. ATIVAN GTT TURNED DOWN TO 2MG/HR. FAMILY AT BEDSIDE. WILL MONITOR.
--- NOTE | 2016-05-04 15:42 | NUR ---
1540: PT TURNED AND REPOSITIONED, SUCTIONED VIA ETT AND ORALLY. PT PULLED OUT NGT ALMOST ALL THE WAY, NGT PUSHED BACK IN TO 60CM. SAS 5. ATIVAN GTT WAS TURNED BACK UP TO 3MG AT 1420. WILL MONITOR.
--- NOTE | 2016-05-04 15:54 | NUR ---
PER MD SPEARS SINCE NGT WAS ONLY PULLED OUT 10CM AND PUSHED BACK IN WITH NO ISSUES NO NEED FOR CXR TO CONFIRM PLACEMENT UNLESS BLEEDING STARTS. CXR IN THE MORNING.
--- NOTE | 2016-05-04 17:21 | NUR ---
1717: PT KICKING LEGS IN BED, PULLING AT RESTRAINTS TO TRY AND GRAB VENT TUBING. SQUIRMING ALL OVER THE BED, ATIVAN 2MG IV BOLUS GIVEN AND 2MG IV DILAUDID GIVEN. SAS 5. FLACC 8. WILL MONITOR.
--- NOTE | 2016-05-04 19:04 | NUR ---
PICC LINE DRESSING CHANGED DUE TO DRESSING LOOSENING R/T SWEAT.
--- NOTE | 2016-05-04 21:24 | NUR ---
PT AWAKE RESTLESS BROWN BUT NOT TO COMMAND EXTREMELY RESISTIVE TO CARE. INTUBATED ON RESPIRATOR, NGT TO LWS [address], COLLECTION BAG OVER SUTURES DRAINING LG AMT SEROUS FLUID. aTIVAN GTT AT 3MG/H
[2016-05-05] VITALS: BP 121/79
[2016-05-05 03:48] VITALS: BP 116/68
[2016-05-05 04:51] LABS: ABSOLUTE BASOPHIL COUNT 0 /CUMM (0.0-0.2); ABSOLUTE EOSINOPHIL COUNT 0.2 /CUMM (0.0-0.7); ABSOLUTE GRANULOCYTE CT 10.8 /CUMM (1.4-6.5); ABSOLUTE LYMPH COUNT 0.7 /CUMM (1.2-3.4); BASOPHIL % 0.1 % (0.0-2.0); EOSINOPHIL % 1.3 % (0-5); HEMATOCRIT 26.5 % (42-52); MEAN CORPUSCULAR HGB 31.5 PG (27.0-31.0); MEAN CORPUSCULAR HGB CONC 32.9 G/DL (33.0-37.0); MEAN CORPUSCULAR VOLUME 95.8 FL (80.0-94.0); MEAN PLATELET VOLUME 9.6 FL (7.4-10.4); PLATELET COUNT 213 /CUMM (130-400); RBC DISTRIBUTION WIDTH 15.1 % (11.5-14.5); RED BLOOD CELL CT 2.77 /CUMM (4.70-6.10); WHITE BLOOD CELL COUNT 12.7 /CUMM (4.8-10.8)
--- NOTE | 2016-05-05 05:52 | PN- General Surgery ---
See Addendum Subjective Subjective: Patient remains intubated and lightly sedated due to agitation. Continues to have large amounts (>3L last 24 hours) of ascitic output via CONNIE drains and cutaneous fistula. Continues to have a bile leak from the left CONNIE drain, which was proven via a methylene blue test. Tmax 99.6. Meropenem has been restarted. Objective Vital Signs and I&Os Vital Signs Date Time Temp Pulse Resp B/P Pulse O2 O2 Flow FiO2 Ox Delivery Rate 05/05 0535 40 05/05 0348 99.6 100 26 116/68 05/05 0348 98 Ventilator 40% 05/05 0324 40 05/05 0036 40 05/05 0000 99.6 104 26 121/79 05/05 0000 94 Ventilator 40% 05/04 2249 40 05/04 2200 99.6 74 26 96/45 94 Ventilator 40% 05/04 2000 98.6 98 26 110/70 05/04 2000 96 Ventilator 40% 05/04 1851 40 05/04 1620 40 05/04 1600 Ventilator 40% 05/04 1600 98.8 98 26 112/56 / 1600 98.8 98 26 112/56 96 Ventilator 40% 05/04 1431 40 05/04 1200 74 26 114/47 / 1200 97 Ventilator 40% 05/04 1144 40 05/04 0825 40 05/04 0800 97.8 76 26 90/42 / 0800 99 Ventilator 40% 05/04 0800 97.8 76 26 90/42 99 Ventilator 40% Intake & Output 05/05 0800 05/05 0000 05/04 1600 05/04 0800 05/04 0000 05/03 1600 Intake Total 1574.0 1573.6 1762.0 1869.0 1856.0 2280.0 Output Total 1290 1270 1980 1845 1940 1950 Balance 284.0 303.6 -218.0 24.0 -84.0 330.0 Intake, IV 640 640 811 406 120 7650 Intake, Lipid 134.0 133.6 136.0 134.0 134.0 132.0 Intake, Oral 0 0 0 0 Intake, Other 0 Intake, 800 800 815 805 781 790 TPN/PPN Number 0 1 1 Bowel Movements Output, 776 064 4381 1240 1200 900 Drainage Output, 70 50 150 100 200 Gastric Drainage Output, Other 150 300 Output, Urine 520 690 500 455 640 550 Physical Exam: Gen: Intubated, sedated. Does not respond to verbal command this morning. Cor: S1+S2+ regular rate and rhythm Lungs: diminished breath sounds to grisel lung nathan. Rhonchi grisel. Abd: soft, ND, +BS x4. Dressing C/D/I around CONNIE drains. Ext: no edema to grisel lower extremities. Assessment/Plan Assessment/Plan A: 50 year old male POD #14 s/p laparoscopic em patch for perforated duodenal ulcer with purulent peritonitis. Hospital course complicated by alcohol withdrawl requiring intubation/sedation, MATT-resolving, encephalopathy (hepatic vs metabolic) CONNIE drain #1 with what appears to be a leak from GI tract. On day #2 of restarting meropenem for increasing leukocytosis and fevers. Plan: Continue meropenem. Continue CONNIE drains (Drain #1 with bile leak) Attempts to wean off ventilator per ICU team. No acute surgical intervention at this time.
--- NOTE | 2016-05-05 07:35 | PN- Resident CRCU ---
Subjective HPI/CRCU Issues: patient is a 50 y/o Male, with a significant past medical history of hypertension, hyperlipidemia, GERD, diverticulosis, degenerative joint disease, a vascular necrosis status post hip replacement, fatty liver disease, alcohol abuse presented with chronic alcohol abuse, nausea, vomting, abd distension and pain which got worse so he presented to ED on 04/21/2016. On Evaluation CT scan showed pneumoperitoneum, moderate ascites.On examination the abdomen was distended and tender to palpation , so diagnostic paracentesis was done which showed WBC 9504, RBC 2156. Because of the perforation, It seems that patient developed the secondary bacterial peritonitis. We took surgical consultation. The next couple of hours patient went into septicemia and shock. So he was given IV fluids and prophylactic antibiotics including ceftriaxone metronidazole and vancomycin. We catheterized the patient. Despite of these measures his blood pressure going down , so we took surgical consultation and plan for emergent surgery. Meantime, we intubated the patient and put him on mechanical ventilation(assist control mode, TV-500, respiratory rate 28, PEEP 5, FiO2 100%), triple-lumen catheter was placed in the right side of jugular vein. Patients blood pressure was continuosly going down, so we started him on Levothroid/vasopressin. We also started him on fentanyl and propofol drip. The culture of the ascites fluid came back positive for gram-negative. We took the consult from infectious disease specialist/Abdullahi Osuna MD. He advised to change ceftriaxone to ceftazidime and advised to wait for sensitivities report. Patient went to surgery on 04/22/2016. In postop, His blood pressure was 119/62. He is improving after surgery. When blood pressure remained maintained to normal , we stopped all the pressures and also slowly stopped sedation. We tried weaning multiple times. In between the patient started having fever of 100.2, awaited. CT scan of chest/abdomen/pelvis on 04/29/2016 which showed moderate right-sided pleural effusion and consolidation and collapse of right lower lobe. CRCU issues - Perforated duodenal ulcer s/p exploratory laparoscopy with grahm plication of duodenal ulcer Secondary bacterial Peritonitis Septic shock with MODS/ MATT improving/ Lactic acidosis improving/ Alcoholic hepatitis with transaminitis Ascitis Sigmoid Diverticulitis Hypertension Hyperlipidemia Morbidly Obese 24 Hour Events: Overnight he had 6 beats runs of NSVT, although troponins were negative, we will consult cardiology. Objective Vital Signs & I&O Last 8 Hrs of Vitals and I&O: Intake & Output 05/05 1600 Intake Total 1605.0 Output Total 2605 Balance -1000.0 Intake, Blood 179 Product Intake, IV 595 Intake, Lipid 119.0 Intake, 712 TPN/PPN Output, 1500 Drainage Output, Other 475 Output, Urine 630 Patient 142.882 kg Weight Temp -97.6 HR -90 RR-26 BP- 120/64 SpO2 -95 Exam General Appearance: awake, intubated, mild distress, obese Head: atraumatic, normal appearance Ears, Nose, Throat: normal pharynx, normal ENT inspection, hearing grossly normal Neck: normal inspection, supple Respiratory: normal breath sounds, chest non-tender, no respiratory distress, crackles Cardiovascular: regular rate/rhythm, edema Gastrointestinal: soft, distention, tenderness, [address], JP1 is having greenish fluid Extremities: normal inspection, normal capillary refill, pedal edema Weaning Parameters NIF: 17 Minute Volume: 5.09 Resp rate: 26 Vt: 150 Heart Rate: 84 Weaning Schedule Start Time: 1105 Minute Volume: 10.3 Resp Rate: 18 Vt: 621 Heart Rate: 83 End Time: 1107 Minute Volume: 0 Resp Rate: 0 Vt: 0 Heart Rate: 83 Current Medications: Current Medications Sig/Roberto Start time Last Medication Dose Route Stop Time Status Admin Acetylcysteine 2 ML BID 04/30 2200 AC 05/05 INH 0751 Albuterol Sulfate 3 ML EVERY 4 HRS/AWAKE 05/01 2000 05/05 INH 1628 Fat Emulsion 400 ML 1900 05/05 1900 Intravenous IV 05/06 1859 Fat Emulsion 400 ML 1900 05/04 1900 DC 05/04 Intravenous IV 05/05 185 1940 Heparin Sodium 5,000 UNIT Q8 04/24 1400 AC 05/05 (Porcine) SC 1404 Hydromorphone HCl 2 MG Q4-PRN PRN 05/04 1745 05/05 IV 1800 Lactulose 1 BOT TID 05/05 1712 05/05 ND 1746 Lorazepam 100 MG Q24H 05/01 0400 05/05 Dextrose/Water 1,000 ML IV 0344 Lorazepam 2 MG Q1 PRN 04/29 1615 05/05 IV 0359 Magnesium Sulfate 1 GM ONCE ONE 05/05 0915 DC 05/05 Dextrose/Water 100 ML IV 05/05 1314 0919 Meropenem 1 GM IQ8 05/03 1000 AC 05/05 IV 1619 Nystatin 1 LESLIE BID 05/04 2200 AC 05/05 TOP 0945 Nystatin 1 LELSIE Q6 05/03 1906 AC 05/05 TOP 1732 Ondansetron HCl 4 MG Q8P PRN 04/22 0600 AC IV Pantoprazole Sodium 40 MG BID 04/22 2200 AC 05/05 IV 0944 Rifaximin 550 MG BID 05/05 1134 DC PO Sodium Chloride 1,000 ML .Q20H 05/05 0930 AC 05/05 IV 1140 Sodium Chloride 1,000 ML Q20H 05/04 1000 DC 05/05 IV 0522 Total Parenteral 1 UNIT 1900 05/05 1900 AC Nutrition IV 05/06 1859 Total Parenteral 1 UNIT 1900 05/04 1900 DC 05/04 Nutrition IV 05/05 1859 1940 Impression/Plan Impression/Problem List Impression: Impression and Plan - Patient is awake, following the commands. He is off the levofed/fantanyl/ antibiotics. He is on low-dose Ativan drip. Patient is leaking from the operated side, surgeons are already awair, but it is making prognosis at poor side. POD-14 Ventilator -D14 right sided PICC line - D8, CONNIE drains-3 - D14 Foleys cathter -D14 ABG - pH-7.37, PCO2 30, PO2 102, bicarbonate 17 Respiratory * According to Dr. Arroyo, We'll keep the CVP of 12 and BP > [address] Balderas says keep SAS 3-4. * He is on ventilator, Ventilator Settings is -AC, TV-550, IPAP -24, RR-24, PEEP -5, Fio2 40. * There is decreased air entry on the right middle and lower lobe * 05/01/2016 Patient was having right sided pleural effusion. On ultrasound it was found,it is very mild and the radiologist says that there is more chances of pneumothorax, even If they try even for diagnostic purposes.So it was decided not to do a thoracocentesis * we will try for weaning when patient become more alert. * We will consider for tracheostmy placement as pt is not weanable Neurology * Although patient is awake but responding to commands.We were suspecting Wernicke's encephalopathy. So we gave high dose thiamine for total 9 days( 05/02) * We did CT head which doent showed any intracranial pathology. * We also checked for serum ammonia which come back to 45 (04/29/2016) * Patient is also in alcohol witdrawl, so we will continue ativan drip. * We placed the neurology consult to get their opinion regarding encephalopathy. Infectious * Ascitic fluids is growing -enterobacter cloacae and alpha strept. * We will follow ID rcms * Discussed with Dr Osuna, patient doesnt need antibiotics. We will stop Meopenem 1g iv 8hrly, as there is no focus and patient already had 7 days course of antibiotics.04/30/2016. * Inj meropenem 1g Q8 is restarted on 05/03/2016. * on 04/22/2016 To rule out the source of infection. We orderd CT chest/abdomen/ pelvis, which showed moderate right-sided pleural effusion with right lower lobe consolidation and collapse. * CT scan on 05/04/2016 reported persistent moderate right pleural effusion and small left pleural effusion. Persistent collapse/consolidation of right lower lobe and, to a lesser degree, left lower lobe. Subsegmental atelectasis within the superior lingula has increased. Hepatosplenomegaly. Persistent small volume of ascitic fluid in the abdomen and pelvis, and edema of the mesentery. There are no newly developing fluid collections. The drainage catheters are in stable position compared to 04/29/2016. * We will follow sputum culture, urine culture. * Also we will monitor for possible fungemia but will hold off on anti-fungals for now. Hematology - * Hb-8.7, we advised for 1 units of PRBC transfusion. * We will suplement MultiVit, Thiamine, folic acid. Cardiology * Patient is hemodynamically stable * Overnight he had 6 beats runs of NSVT, although troponins were negative, we will consult cardiology. According to Dr Villatoro his recent troponins are negative so we will observe, if again have NSVT in future than we will revaluate. Gastroenterology * There are 3 CONNIE drains , there was greenish fluid in the CONNIE-1 drain.? Opertaed site is leaking. * According to the surgeons, TPN, weaning trial,Nothing by mouth and NG tube decompression, GI prophylaxis, monitoring CONNIE output. * Abdoman is soft, there are mild bowel sounds on examiantion * We will do strict Intake output Charting * We will follow GI rcms * We stopped albumin on 04/29/2016. * We started giving lactulose from NG tube but residual was >100cc.So we stopped it and started him on lactulose enemas Q6 PRN,but he had bleeding. * We placed consult for Dr Hernandez to give opinion for further management. Urology * BUN -28 Cr-0.6 * We'll monitor it regularly * We will continue IV fluids changed to 1/2 NS and 50ml/hr * Strict I/O charting Endocrine * TSH -8.9, T4 -1.85 * It seems patient is having Sick Euthyroid syndrome. * We discussed with endocrinology. * We will repeat TFT after patient get recovered. Skin * There are multiple dressings on the skin, abdomen for drain, * PICC line is on the right-hand Alimentry * Mg is 1.8, we will supplement 1gm IV today and also increase in TPN. Diet -continue TPN as advised by dietitian. DVT prophylaxis -ALPS/ Heparin CODE STATUS-full code Problem List: 1. Pleural effusion 2. At risk for ventilator-associated event 3. Perforation bowel 4. Peritonitis 5. Alcoholic hepatitis 6. Hypomagnesemia Pain Ratin Tomorrow's Labs & Rationales: cbc,ICU bundle, Plan DVT/Prophylaxis: mechanical
[2016-05-05 08:00] VITALS: BP 142/68
--- NOTE | 2016-05-05 08:22 | PN- CRCU ---
Subjective HPI/Critical Care Issues: The patient remains intubated and sedated. He is periodically agitated despite being on Ativan 3 mg. The patient's MAXIMUM TEMPERATURE is 99.6. He remains on 40% oxygen. His blood pressure and urine output are stable. He dropped his hemoglobin today however there is no evidence of active bleeding. Objective Current Medications: Current Medications Sig/Roberto Start time Last Medication Dose Route Stop Time Status Admin Acetylcysteine 2 ML BID 04/30 220 AC 05/05 INH 0751 Albuterol Sulfate 3 ML EVERY 4 HRS/AWAKE 05/01 2000 AC 05/05 INH 0751 Fat Emulsion 400 ML 1900 05/04 1900 AC 05/04 Intravenous IV 05/05 1859 194 Fat Emulsion 400 ML 1900 05/03 190 DC 05/03 Intravenous IV 05/04 Heparin Sodium 5,000 UNIT Q8 04/24 1400 AC 05/05 (Porcine) SC 0522 Hydromorphone HCl 2 MG Q4-PRN PRN 05/04 1745 AC 05/05 IV 0526 Hydromorphone HCl 2 MG Q6P PRN 04/22 0930 DC 05/04 IV 1715 Lorazepam 100 MG Q24H 05/01 0400 AC 05/05 Dextrose/Water 1,000 ML IV 0344 Lorazepam 2 MG Q1 PRN 04/29 1615 AC 05/05 IV 0359 Meropenem 1 GM IQ8 05/03 1000 AC 05/05 IV 0013 Nystatin 1 LESLIE BID 05/04 2200 AC 05/04 TOP 2149 Nystatin 1 LESLIE Q6 05/03 1906 AC 05/05 TOP 0521 Ondansetron HCl 4 MG Q8P PRN 04/22 0600 IV Pantoprazole Sodium 40 MG BID 04/22 2200 AC 05/04 IV 2148 Sodium Chloride 1,000 ML Q20H 05/04 1000 AC 05/05 IV 0522 Sodium Chloride 1,000 ML Q10H 05/01 1014 DC 05/04 IV 0913 Total Parenteral 1 UNIT 1900 05/04 1900 AC 05/04 Nutrition IV 05/05 185 194 Total Parenteral 1 UNIT 1900 05/03 1900 DC 05/03 Nutrition IV 05/04 Vital Signs & I&O Last 24 Hrs of Vitals and I&O: Vital Signs Date Time Temp Pulse Resp B/P Pulse O2 O2 Flow FiO2 Ox Delivery Rate 05/05 0535 40 05/05 0348 99.6 100 26 116/68 05/05 0348 98 Ventilator 40% 05/05 0324 40 05/05 0036 40 05/05 0000 99.6 104 26 121/79 05/05 0000 94 Ventilator 40% 05/04 2249 40 05/04 2200 99.6 74 26 96/45 94 Ventilator 40% 05/04 2000 98.6 98 26 110/70 05/04 2000 96 Ventilator 40% 05/04 1851 40 05/04 1620 40 05/04 1600 Ventilator 40% 05/04 1600 98.8 98 26 112/56 05/04 1600 98.8 98 26 112/56 96 Ventilator 40% 05/04 1431 40 05/04 1200 74 26 114/47 05/04 1200 97 Ventilator 40% 05/04 1144 40 05/04 0825 40 05/04 0800 97.8 76 26 90/42 05/04 0800 99 Ventilator 40% 05/04 0800 97.8 76 26 90/42 99 Ventilator 40% Intake & Output 05/05 0800 05/05 0000 05/04 1600 Intake Total 1574.0 1573.6 1762.0 Output Total 1290 1270 1980 Balance 284.0 303.6 -218.0 Intake, IV 640 640 811 Intake, Lipid 134.0 133.6 136.0 Intake, Oral 0 Intake, 800 800 815 TPN/PPN Number 0 Bowel Movements Output, 604 183 5298 Drainage Output, 70 50 Gastric Drainage Output, Other 150 Output, Urine 520 690 500 Exam General Appearance: intubated, intermittently agitated, moving all extremities, opens eyes but not following commands Head: atraumatic Neck: supple Respiratory: no respiratory distress, bilateral anterior rhonchi, lungs expand symmetrically, trachea is midline Cardiovascular: regular rate/rhythm, tachycardia, S1 and S2 heard Abdomen: CONNIE drains in place, distended, surgical dressings in place, decreased bowel sounds Extremities: warm and dry Skin: no cyanosis or edema Results Last 24 Hrs of Lab Results: Laboratory Tests 05/05/16 0400: Anion Gap 7, Estimated GFR > 60, Glucose 124 H, Calcium 9.1, Phosphorus 4.7 H, Magnesium 1.8, Total Bilirubin 1.8 H, AST 75 H, ALT 41, Troponin I 0.02, Albumin 2.2 L, Prealbumin Pending, Triglycerides Pending, CBC w Diff MAN DIFF ORDERED, RBC 2.77 L, MCV 95.8 H, MCH 31.5 H, RDW 15.1 H, MPV 9.6, Gran % 85.0 H, Lymphocytes % 5.4 L, Monocytes % 8.2, Eosinophils % 1.3, Basophils % 0.1, Absolute Granulocytes 10.8 H, Segmented Neutrophils 81 H, Band Neutrophils 1, Absolute Lymphocytes 0.7 L, Lymphocytes 1 L, Monocytes 15 H, Absolute Monocytes 1.0 H, Eosinophils 1, Absolute Eosinophils 0.2, Basophils 1, Absolute Basophils 0, Platelet Estimate ADEQUATE, Polychromasia 1+, Poikilocytosis 2+, Ovalocytes 1+, Stomatocytes 1+, PUBS MCHC 32.9 L, Fld Total RBCs Counted 100 05/04/16 2250: Anion Gap 5, Estimated GFR > 60, Glucose 142 H, Calcium 8.9, Phosphorus 4.7 H, Magnesium 1.9, Total Bilirubin 1.7 H, AST 76 H, ALT 47, Albumin 2.2 L Impression/Plan Impression/Plan Impression/Plan: 1. Perforated viscus with ongoing perforation. The patient had a low-grade temperature overnight with an increasing white blood cell count suspicious of possible fluid collection/infection. Other sources of infection must be excluded as well. Yeast is a consideration in the setting of TPN. 2. MATT - improving. 3. Alcoholic hepatitis with improved bilirubin. 4. Encephalopathy - hepatic? metabolic? 5. Macrocytic anemia in the setting of alcohol use, no evidence of active bleeding. 6. Deep tissue injury - right scapula area. 7. Hyperchloremia, improving, likely from TPN. 8. Alcohol dependence/abuse, ETOH withdrawl. 9. Electrolyte abnormalities. 10. Anemia without active blood loss. Recommendations: * Transfuse 1 unit of PRBCs. * Please request a neurology consult for ongoing persistent encephalopathy. * Continue to wean Ativan down for an SAS of 3-4. * Please request GI (Dr. Hernandez) to reevaluate the patient and assist with recommendations regarding lactulose. * Reattempt lactulose enemas today. * Cardiology consult for NSVT. * Continue current ventilator settings. * Will need to consider trach placement as the patient does not appear weanable in the near future. * Continue meropenem, follow up ID recommendations. * Await input from surgery. * Continue normal saline at 50 ML per hour. * Adjust TPN to correct metabolic derangements. * MVI, thiamine, folate to continue in TPN. * Continue ventilator bundle with DVT and GI prophylaxis. * Skin care protocol, off load deep tissue injury area. * Continue all supportive care. * Patient's family again updated by telephone. * Possible poor prognosis. TTS 56
--- NOTE | 2016-05-05 09:15 | NUR ---
REC'D THE PT AT 0800 ORALLY INTUBATED AND MECHANICALLY VENTILATED PER MD ORDER. PT RESTLESS AND AGITATED AT TIMES, RESISTANT TO ANY CARE-THIS IS WHNE HE BECOMES AGITATED. MOZI WRIST RESTRAINTS REMAIN IN PLACE THE PT ATTEMPTS TO GRAB ETT. REMAINS ON ATIVAN AT 3MG/HR=30ML/HR WITH AN SAS OF 5. BROWN. PT IS IN A NSR WITHOUT ECTOPY NOTED PER THE WELFARE SUPERVISOR. PT HAS TRACE GENERALIZED EDEMA. PT'S BS ARE DECREASED TO THE RUL BIT WITH RHONCHI AND DIMINISHED AT THE BASES. SUCTIONED FOR PALE YELLOW DUCKWORTH THIN SPUTUM IN MODERATE AMOUNTS. ABD IS DISTENDED BUT SOFT WITH VERY HYPOACTIVE BOWEL SOUNDS. NGT IN PLACE TO R NARE AND TO LWS DRAINING THICK DUCKWORTH FLUID. CONNIE#[place] [address] FOR 175ML OF THICK DK YELLOW FLUID, #2 DRAINED OF 200ML AND #3 DRAINED OF 400ML. BOTH #2 AND 3 DRAINING STRAW COLORED FLUID. DRESSINGS TO BOTH SIDES OF THE ABDOMEN CHANGED. L SIDE WITHHEAVY SEROUS DRAIANGE. OSTOMY BACK OVER OPEN AREA TO THE ABD DRAINED OF 275ML OF STRAW COLORED URINE. STERLING IN PLACE DRAINING DK PATRICK URINE. PT CONTINUES ON TPN AT 100ML/HR WELL LIPIDS AT 16.7ML/HR BOTH INFUSING VIA THE AHN POR OF NTHE NIHARIKA PICC.NS AT 50ML/HR AND THE ATIVAN GTT INFUSING VIA THE WHITE PORT. THE RED PORT IS OPEN AND FLUSHES WELL.
--- NOTE | 2016-05-05 09:22 | Cons- Cardiology ---
General Information and HPI Consulting Request Date of Consult: 05/05/16 Requested By: Saad PANDEY MD Reason for Consult: Nonsustained ventricular tachycardia in a patient who is status post emergency duodenal perforation surgery. Source of Information: old records Exam Limitations: clinical condition History of Present Illness: The patient is a 50-year-old alcoholic who presented approximately 2 weeks ago with acute perforated duodenum with ascites. He had a laparoscopic repair. He continues to put out ascites through 2 drains. He has developed sepsis, MATT and alcohol withdrawal and has been continually intubated and sedated. He is now off of pressors and is otherwise hemodynamically stable. He has about 5 negative troponins including today. This morning he was noted to have a 6 beat run of nonsustained ventricular tachycardia at 6:34 AM. He previously had an echocardiogram at the time of admission which was unremarkable. I reviewed his saved monitor strips and there are no other significant arrhythmias during the hospital stay. Allergies/Medications Allergies: Coded Allergies: NO KNOWN ALLERGIES (08/27/12) Home Med List: Atorvastatin Calcium 40 MG TABLET 1 TAB PO DAILY CHOLESTROL (Reported) Chondroitin Sulf/Glucosamine (Glucosamine & Chondroitin) 1 CAP CAP 1 CAP PO DAILY SUPPLEMENT (Reported) Fluoxetine HCl 40 MG CAPSULE 1 CAP PO QAM DEPRESSION (Reported) Folic Acid 1 MG TAB 1 MG PO DAILY SUPPLEMENT Lisinopril 20 MG TABLET 1 TAB PO DAILY BP (Reported) Meclizine HCl 25 MG TABLET 1 TAB PO TID DIZZINESS (Reported) Metoprolol Succinate (Toprol XL) [address] 1 TAB PO DAILY BP (Reported) Current Medications: Current Medications Sig/Roberto Start time Last Medication Dose Route Stop Time Status Admin Acetylcysteine 2 ML BID 04/30 220 AC 05/05 INH 0751 Albuterol Sulfate 3 ML EVERY 4 HRS/AWAKE 05/01 2000 AC 05/05 INH 0751 Fat Emulsion 400 ML 1900 05/05 190 AC Intravenous IV 05/06 1859 Fat Emulsion 400 ML 1900 05/04 190 AC 05/04 Intravenous IV 05/05 Fat Emulsion 400 ML 05/03 190 DC 05/03 Intravenous IV 05/04 Heparin Sodium 5,000 UNIT Q8 04/24 1400 AC 05/05 (Porcine) SC 0522 Hydromorphone HCl 2 MG Q4-PRN PRN 05/04 1745 AC 05/05 IV 0526 Hydromorphone HCl 2 MG Q6P PRN 04/22 0930 DC 05/04 IV 1715 Lorazepam 100 MG Q24H 05/01 0400 05/05 Dextrose/Water 1,000 ML IV 0344 Lorazepam 2 MG Q1 PRN 04/29 1615 05/05 IV 0359 Magnesium Sulfate 1 GM ONCE ONE 05/05 0915 UNVr Dextrose/Water 100 ML IV 05/05 1314 Meropenem 1 GM IQ8 05/03 1000 05/05 IV 0821 Nystatin 1 LESLIE BID 05/04 2200 AC 05/04 TOP 2149 Nystatin 1 LESLIE Q6 05/03 1906 05/05 TOP 0521 Ondansetron HCl 4 MG Q8P PRN 04/22 0600 IV Pantoprazole Sodium 40 MG BID 04/22 2200 05/04 IV 2148 Sodium Chloride 1,000 ML .Q20H 05/05 0930 UNVr IV Sodium Chloride 1,000 ML Q20H 05/04 1000 PR 05/05 IV 0522 Sodium Chloride 1,000 ML Q10H 05/01 1014 PR 05/04 IV 0913 Total Parenteral 1 UNIT 1900 05/05 1900 Nutrition IV 05/06 1859 Total Parenteral 1 UNIT 1900 05/04 1900 05/04 Nutrition IV 05/05 1859 1940 Total Parenteral 1 UNIT 1900 05/03 1900 DC 05/03 Nutrition IV 05/04 1858 Review of Systems Review of Systems: Unobtainable Past History Travel History Traveled to [place] past 21 day No Medical History Blood Transfusion Hx: No Neurological: vertigo EENT: NONE Cardiovascular: hypertension, HYPERLIPIDEMIA Respiratory: NONE Gastrointestinal: GERD, DIVERTICULOSIS Hepatic: "FATTY LIVER" Renal: NONE Musculoskeletal: chronic back pain, degen joint disease Psychiatric: alcohol dependence, anxiety Endocrine: NONE Blood Disorders: NONE Cancer(s): NONE RADIOLOGY PHYSICIAN ASSISTANT/Reproductive: NONE Surgical History Surgical History: appendectomy, hip replacement (left), B/L shoulder surgeries LEFT WRIST SURGERY Family History Relations & Conditions If Any: FATHER, ; Cause: Lung malignancy. Psychosocial History Where Do You Live? Home Who Do You Live With? self Services at Home: None Smoking Status: Never Smoked ETOH Use: heavy use, alcoholic, daily >1 pint vodka Illicit Drug Use: denies illicit drug use Functional Ability ADLs Independent: dressing, eating, toileting, bathing. Ambulation: independent IADLs Independent: shopping, housework, finances, food prep, telephone, transportation , medication admin. Employment History Employment: Unemployed Exam & Diagnostic Data Vital Signs and I&O Vital Signs Date Time Temp Pulse Resp B/P Pulse O2 O2 Flow FiO2 Ox Delivery Rate 05/05 0750 40 05/05 0535 40 05/05 0348 99.6 100 26 116/68 05/05 0348 98 Ventilator 40% 05/05 0324 40 05/05 0036 40 05/05 0000 99.6 104 26 121/79 05/05 0000 94 Ventilator 40% 05/04 2249 40 05/04 2200 99.6 74 26 96/45 94 Ventilator 40% 05/04 2000 98.6 98 26 110/70 05/04 2000 96 Ventilator 40% 05/04 1851 40 05/04 1620 40 05/04 1600 Ventilator 40% 05/04 1600 98.8 98 26 112/56 05/04 1600 98.8 98 26 112/56 96 Ventilator 40% 05/04 1431 40 05/04 1200 74 26 114/47 05/04 1200 97 Ventilator 40% 05/04 1144 40 Intake & Output 05/05 1600 05/05 0800 05/05 0000 05/04 1600 05/04 0800 05/04 0000 Intake Total 1574.0 1573.6 1762.0 1869.0 1856.0 Output Total 1290 1270 1980 1845 1940 Balance 284.0 303.6 -218.0 24.0 -84.0 Intake, IV 640 640 811 930 941 Intake, Lipid 134.0 133.6 136.0 134.0 134.0 Intake, Oral 0 0 0 Intake, 800 800 815 805 781 TPN/PPN Number 0 1 Bowel Movements Output, 818 409 7997 1240 1200 Drainage Output, 70 50 150 100 Gastric Drainage Output, Other 150 Output, Urine 520 690 500 455 640 Physical Exam: The patient is intubated and on the respirator. He is agitated and moving all extremities but not responding to commands. HEENT exam is grossly normal Chest is aerating well Cardiac exam reveals regular rhythm somewhat tachycardic with no murmurs Abdomen is bandaged and does not appear to be tender Extremities reveal good pulses and no edema Labs/Garcia Results: Laboratory Tests 12/12 12/11 12/11 0400 2250 0500 Blood Gas pH (7.35 - 7.45 PH) 7.37 pCO2 (35 - 45 TORR) 30 L pO2 (80 - 100 TORR) 102 H HCO3 (21 - 28 MEQ/L) 17 L ABG O2 Sat (Measured) (>96.0 %) 96.0 P-50 (Temp Corrected) Y Carboxyhemoglobin (1.5 - 5.0 %) 0.2 L O2 Concentration % 40% Temperature (97.0 - 100.0 FARH) 100.6 H Respiration Rate (BPM) 26 O2 Delivery Method ESPRIT Vent Mode AC Expiratory Pressure (CMH2O/P) 5 Tidal Volume (CC) 550 Chemistry Sodium (137 - 145 mmol/L) 139 139 Potassium (3.5 - 5.1 mmol/L) 4.8 5.0 Chloride (98 - 107 mmol/L) 111 H 112 H Carbon Dioxide (22 - 30 mmol/L) 21 L 22 Anion Gap (5 - 16) 7 5 BUN (9 - 20 mg/dL) 28 H 28 H Creatinine (0.7 - 1.2 mg/dL) 0.6 L 0.7 Estimated GFR (>60 ml/min) > 60 > 60 Glucose (65 - 99 mg/dL) 124 H 142 H Calcium (8.4 - 10.2 mg/dL) 9.1 8.9 Phosphorus (2.5 - 4.5 mg/dL) 4.7 H 4.7 H Magnesium (1.6 - 2.3 mg/dL) 1.8 1.9 Total Bilirubin (0.2 - 1.3 mg/dL) 1.8 H 1.7 H AST (17 - 59 U/L) 75 H 76 H ALT (21 - 72 U/L) 41 47 Troponin I (<0.11 ng/ml) 0.02 Albumin (3.5 - 5.0 g/dL) 2.2 L 2.2 L Prealbumin (17.6 - 36.0 mg/dL) 5.3 L Triglycerides (<150 mg/dL) Pending Hematology CBC w Diff MAN DIFF ORDERED WBC (4.8 - 10.8 /CUMM) 12.7 H RBC (4.70 - 6.10 /CUMM) 2.77 L Hgb (14.0 - 18.0 G/DL) 8.7 L Hct (42 - 52 %) 26.5 L MCV (80.0 - 94.0 FL) 95.8 H MCH (27.0 - 31.0 PG) 31.5 H RDW (11.5 - 14.5 %) 15.1 H Plt Count (130 - 400 /CUMM) 213 MPV (7.4 - 10.4 FL) 9.6 Gran % (42.2 - 75.2 %) 85.0 H Lymphocytes % (20.5 - 51.1 %) 5.4 L Monocytes % (1.7 - 9.3 %) 8.2 Eosinophils % (0 - 5 %) 1.3 Basophils % (0.0 - 2.0 %) 0.1 Absolute Granulocytes (1.4 - 6.5 /CUMM) 10.8 H Segmented Neutrophils (42.2 - 75.2 %) 81 H Band Neutrophils (0.0 - 5.0 %) 1 Absolute Lymphocytes (1.2 - 3.4 /CUMM) 0.7 L Lymphocytes (20.5 - 51.1 %) 1 L Monocytes (1.7 - 9.3 %) 15 H Absolute Monocytes (0.10 - 0.60 /CUMM) 1.0 H Eosinophils (0 - 5.0 %) 1 Absolute Eosinophils (0.0 - 0.7 /CUMM) 0.2 Basophils (0.0 - 2.0 %) 1 Absolute Basophils (0.0 - 0.2 /CUMM) 0 Platelet Estimate (ADEQUATE) ADEQUATE Polychromasia 1+ Poikilocytosis 2+ Ovalocytes 1+ Stomatocytes 1+ PUBS MCHC (33.0 - 37.0 G/DL) 32.9 L Miscellaneous Phlebotomy Draw Site LEFT RADIAL Other Body Source Fld Total RBCs Counted (%) 100 05/04 0400 Chemistry Sodium (137 - 145 mmol/L) 135 L Potassium (3.5 - 5.1 mmol/L) 5.2 H Chloride (98 - 107 mmol/L) 108 H Carbon Dioxide (22 - 30 mmol/L) 19 L Anion Gap (5 - 16) 7 BUN (9 - 20 mg/dL) 35 H Creatinine (0.7 - 1.2 mg/dL) 0.8 Estimated GFR (>60 ml/min) > 60 Glucose (65 - 99 mg/dL) 124 H Calcium (8.4 - 10.2 mg/dL) 8.8 Phosphorus (2.5 - 4.5 mg/dL) 5.1 H Magnesium (1.6 - 2.3 mg/dL) 2.0 Total Bilirubin (0.2 - 1.3 mg/dL) 1.8 H AST (17 - 59 U/L) 83 H ALT (21 - 72 U/L) 38 Albumin (3.5 - 5.0 g/dL) 2.2 L Hematology CBC w Diff MAN DIFF ORDERED WBC (4.8 - 10.8 /CUMM) 13.6 H RBC (4.70 - 6.10 /CUMM) 3.07 L Hgb (14.0 - 18.0 G/DL) 9.8 L Hct (42 - 52 %) 29.7 L MCV (80.0 - 94.0 FL) 96.7 H MCH (27.0 - 31.0 PG) 31.8 H RDW (11.5 - 14.5 %) 15.8 H Plt Count (130 - 400 /CUMM) 223 MPV (7.4 - 10.4 FL) 9.8 Gran % (42.2 - 75.2 %) 83.3 H Lymphocytes % (20.5 - 51.1 %) 8.0 L Monocytes % (1.7 - 9.3 %) 6.7 Eosinophils % (0 - 5 %) 1.4 Basophils % (0.0 - 2.0 %) 0.6 Absolute Granulocytes (1.4 - 6.5 /CUMM) 11.4 H Absolute Lymphocytes (1.2 - 3.4 /CUMM) 1.1 L Absolute Monocytes (0.10 - 0.60 /CUMM) 0.9 H Absolute Eosinophils (0.0 - 0.7 /CUMM) 0.2 Absolute Basophils (0.0 - 0.2 /CUMM) 0.1 Platelet Estimate (ADEQUATE) ADEQUATE Ovalocytes RARE PUBS MCHC (33.0 - 37.0 G/DL) 32.9 L Diagnostic Data EKG Results Current electrocardiogram shows sinus tachycardia rate of 101 and some nonspecific T-wave flattening. All his other EKGs were reviewed and none of them show any significant abnormalities. CXR Results PATIENT: YOKOCECILIA Sam PRESENT AGE: 50 PATIENT ACCOUNT NO: [id number] : 66 LOCATION: [facility] ORDERING PHYSICIAN: SERGIO BOYER MD SERVICE DATE: 05/04/16 EXAM TYPE: RAD - XRY-PORTABLE CHEST XRAY EXAMINATION: XR PORTABLE CHEST CLINICAL INFORMATION: Pleural effusion. Intubation. COMPARISON: CT of chest 05/03/2016. Portable chest x-ray 05/03/2016. TECHNIQUE: Portable view of the chest was obtained. 4:31 AM FINDINGS: Endotracheal tube catheter approximately 3.6 cm above the ching. Nasogastric tube passes into the stomach but the catheter tip is visualized. The chest x-ray under penetrates the abdomen. There is a right-sided PICC line with the catheter tip at caval atrial junction. Volume of the lung is low. No significant central pulmonary vascular congestion. Bilateral pleural effusion seen on the CT of chest 05/03/2016, right larger than left is better demonstrated on the CT than the chest x-ray. There is a ventricular density at the left lateral chest which can be some segmental atelectasis or fluid in the fissure. IMPRESSION: The bilateral pleural effusions better demonstrated on prior chest CT than this portable chest x-ray exam. Fluid in the fissure versus subsegmental atelectasis at left lung base Tubes and lines in good position. DICTATED BY: JAMES BASS MD DATE/TIME DICTATED:05/04/16449 TEST EVALUATOR:STEF DATE/TIME TRANSCRIBED:05/04/16449 CONFIDENTIAL, DO NOT COPY WITHOUT APPROPRIATE AUTHORIZATION. Assessment/Plan Assessment/Plan The patient is a 50-year-old man with chronic alcoholism who presented with perforated duodenal ulcer, sepsis, acute kidney injury, ascites. He is improving metabolically but still has ascitic output. Today he had a nonsustained run of 6 beats of ventricular tachycardia noted on the monitor. His EKG is unremarkable. His previous echocardiogram was unremarkable. His chemistries are relatively normal except for a borderline magnesium which is being repleted. He has previously had negative troponins and repeat troponin this morning is negative as well. I would just continue to monitor this patient. No specific treatment is indicated at this time. If he has more episodes we will reevaluate him at that time. Other Findings/Comments: CONCLUSIONS Left ventricular cavity size normal. Left ventricular wall thickness mildly increased. No obvious regional wall motion abnormalities. Left ventricular ejection fraction is estimated at 55 %. Normal left ventricular diastolic filling pattern for age. Right ventricle not well visualized, grossly normal. Left atrial size at the upper limits of normal. Right ventricular systolic pressure estimated at 35 mmHg. No pericardial effusion. Pan Kruse M.D. (Electronically Signed) 04/23/2016 Consult Acknowledgment - Thank you for your consult request.
--- NOTE | 2016-05-05 09:29 | PN- Infect Dx ---
Subjective Subjective: Afebrile. He is unable to report any complaints. Objective Last 24 Hrs of Vital Signs/I&O Vital Signs Date Time Temp Pulse Resp B/P Pulse O2 O2 Flow FiO2 Ox Delivery Rate 05/05 0750 40 05/05 0535 40 05/05 0348 99.6 100 26 116/68 05/05 0348 98 Ventilator 40% 05/05 0324 40 05/05 0036 40 05/05 0000 99.6 104 26 121/79 05/05 0000 94 Ventilator 40% 05/04 2249 40 05/04 2200 99.6 74 26 96/45 94 Ventilator 40% 05/04 2000 98.6 98 26 110/70 05/04 2000 96 Ventilator 40% 05/04 1851 40 05/04 1620 40 05/04 1600 Ventilator 40% 05/04 1600 98.8 98 26 112/56 05/04 1600 98.8 98 26 112/56 96 Ventilator 40% 05/04 1431 40 05/04 1200 74 26 114/47 05/04 1200 97 Ventilator 40% 05/04 1144 40 Intake & Output 05/05 1600 05/05 0800 05/05 0000 Intake Total 1574.0 1573.6 Output Total 1290 1270 Balance 284.0 303.6 Intake, IV 640 640 Intake, Lipid 134.0 133.6 Intake, 800 800 TPN/PPN Output, 550 580 Drainage Output, 70 Gastric Drainage Output, Other 150 Output, Urine 520 690 Physical Exam Other Physical Findings: He is arousable but does not follow commands Lungs are clear Heart regular rhythm with no murmur Abdomen is distended, CONNIE drains remain in place, with murky fluid from drain #1, positive bowel sounds with no obvious tenderness Extremities no cyanosis, clubbing or edema; PICC in the right upper extremity with no inflammation at the site Ann catheter remains in place Results Last 24 Hours of Lab Results: Laboratory Tests 05/05 05/04 0400 2250 Chemistry Sodium (137 - 145 mmol/L) 139 139 Potassium (3.5 - 5.1 mmol/L) 4.8 5.0 Chloride (98 - 107 mmol/L) 111 H 112 H Carbon Dioxide (22 - 30 mmol/L) 21 L 22 Anion Gap (5 - 16) 7 5 BUN (9 - 20 mg/dL) 28 H 28 H Creatinine (0.7 - 1.2 mg/dL) 0.6 L 0.7 Estimated GFR (>60 ml/min) > 60 > 60 Glucose (65 - 99 mg/dL) 124 H 142 H Calcium (8.4 - 10.2 mg/dL) 9.1 8.9 Phosphorus (2.5 - 4.5 mg/dL) 4.7 H 4.7 H Magnesium (1.6 - 2.3 mg/dL) 1.8 1.9 Total Bilirubin (0.2 - 1.3 mg/dL) 1.8 H 1.7 H AST (17 - 59 U/L) 75 H 76 H ALT (21 - 72 U/L) 41 47 Troponin I (<0.11 ng/ml) 0.02 Albumin (3.5 - 5.0 g/dL) 2.2 L 2.2 L Prealbumin (17.6 - 36.0 mg/dL) 5.3 L Triglycerides (<150 mg/dL) Pending Hematology CBC w Diff MAN DIFF ORDERED WBC (4.8 - 10.8 /CUMM) 12.7 H RBC (4.70 - 6.10 /CUMM) 2.77 L Hgb (14.0 - 18.0 G/DL) 8.7 L Hct (42 - 52 %) 26.5 L MCV (80.0 - 94.0 FL) 95.8 H MCH (27.0 - 31.0 PG) 31.5 H RDW (11.5 - 14.5 %) 15.1 H Plt Count (130 - 400 /CUMM) 213 MPV (7.4 - 10.4 FL) 9.6 Gran % (42.2 - 75.2 %) 85.0 H Lymphocytes % (20.5 - 51.1 %) 5.4 L Monocytes % (1.7 - 9.3 %) 8.2 Eosinophils % (0 - 5 %) 1.3 Basophils % (0.0 - 2.0 %) 0.1 Absolute Granulocytes (1.4 - 6.5 /CUMM) 10.8 H Segmented Neutrophils (42.2 - 75.2 %) 81 H Band Neutrophils (0.0 - 5.0 %) 1 Absolute Lymphocytes (1.2 - 3.4 /CUMM) 0.7 L Lymphocytes (20.5 - 51.1 %) 1 L Monocytes (1.7 - 9.3 %) 15 H Absolute Monocytes (0.10 - 0.60 /CUMM) 1.0 H Eosinophils (0 - 5.0 %) 1 Absolute Eosinophils (0.0 - 0.7 /CUMM) 0.2 Basophils (0.0 - 2.0 %) 1 Absolute Basophils (0.0 - 0.2 /CUMM) 0 Platelet Estimate (ADEQUATE) ADEQUATE Polychromasia 1+ Poikilocytosis 2+ Ovalocytes 1+ Stomatocytes 1+ PUBS MCHC (33.0 - 37.0 G/DL) 32.9 L Other Body Source Fld Total RBCs Counted (%) 100 Last 24 Hours of Garcia Results: Blood cultures 2 May 02 remain negative Urine culture May 03 negative Sputum culture May 03 mixed goldie Recent Imaging Studies: Chest x-ray May 05, personally reviewed, reveals no change in the bibasilar densities Assessment/Plan Impression: Stable with no further fevers and with a slight decrease in his white blood cell count with the resumption of Meropenem 2 days ago in the setting of a presumed leak from his perforated ulcer now 13 days status post laparoscopic Clint plication. The recent CT scan does not reveal any collection and he is otherwise stable with renal and respiratory status unchanged. The role of antifungal prophylaxis is unclear at this time, with no evidence of candidal colonization on his recent cultures to date, though he is at increased risk with broad- spectrum antibiotics and TPN. Suggestion: 1. Further evaluation/management of the presumed duodenal leak per Surgery 2. Follow-up recent cultures 3. Continue Meropenem pending above
--- NOTE | 2016-05-05 10:51 | RADIOLOGY REPORT ---
EXAMINATION: XR PORTABLE CHEST CLINICAL INFORMATION: Chronically ill patient, intubated. Atelectasis versus pneumonia. COMPARISON: Multiple prior chest x-rays, most recent of which is dated 05/04/2016. CT scan of the chest dated 05/03/2016. TECHNIQUE: AP semierect portable view of the chest. FINDINGS: Endotracheal tube approximately 5 cm above ching. Enteric tube courses into the left upper quadrant with tip not visualized. Right subclavian PICC line tip in right atrium. Cardiomediastinal silhouette enlarged, unchanged. Low lung volumes persist with vascular congestion and perihilar opacities, consistent with mild pulmonary edema. Superimposed linear subsegmental atelectasis in left midlung and atelectasis/consolidation in right lung base again noted. The bilateral pleural effusions demonstrated on CT scan are less well appreciated on plain film. No pneumothorax is seen. Bony structures are grossly unremarkable. IMPRESSION: 1. Endotracheal tube tip 5 cm above ching. 2. Low lung volumes with suspicion of mild pulmonary edema and bilateral pleural effusions. 3. Right basilar atelectasis/consolidation and linear left mid lung atelectasis.
--- NOTE | 2016-05-05 11:58 | NUR ---
DR LIN JOHNSON MADE AWARE UNABLE TO ADMINISTER THE RIFAMPIMIN VIA THE NGT THE PT HAS A LEAK COMMUNICATING FROM THE NGT TO CONNIE#1.
[2016-05-05 12:00] VITALS: BP 124/61
[2016-05-05 16:00] VITALS: BP 132/64
[2016-05-05 18:52] LABS: ABSOLUTE BASOPHIL COUNT 0 /CUMM (0.0-0.2); ABSOLUTE EOSINOPHIL COUNT 0.1 /CUMM (0.0-0.7); ABSOLUTE GRANULOCYTE CT 9.1 /CUMM (1.4-6.5); ABSOLUTE LYMPH COUNT 0.6 /CUMM (1.2-3.4); ABSOLUTE MONOCYTE COUNT 0.6 /CUMM (0.10-0.60); BASOPHIL % 0 % (0.0-2.0); EOSINOPHIL % 1.3 % (0-5); HEMATOCRIT 29.1 % (42-52); MEAN CORPUSCULAR HGB 30.8 PG (27.0-31.0); MEAN CORPUSCULAR HGB CONC 32.8 G/DL (33.0-37.0); MEAN CORPUSCULAR VOLUME 93.9 FL (80.0-94.0); MEAN PLATELET VOLUME 10.2 FL (7.4-10.4); PLATELET COUNT 143 /CUMM (130-400); RBC DISTRIBUTION WIDTH 16.8 % (11.5-14.5); WHITE BLOOD CELL COUNT 10.5 /CUMM (4.8-10.8)
[2016-05-05 18:57] LABS: GRANULOCYTE % 87.1 % (42.2-75.2)
--- NOTE | 2016-05-05 18:59 | NUR ---
AT 1800 ATTEMPTED TO ADMINISTER THE LACTULOSE ENEMA TO THE PT. AFTER 100ML WAS INSTILLED THE ENEMA FLUID BECAME TO COME BACK OUT. DR SERGIO BOYER NOTIFIED.
[2016-05-05 20:00] VITALS: BP 148/90
[2016-05-06] VITALS: BP 138/80
[2016-05-06 03:30] VITALS: BP 112/60
[2016-05-06 05:08] LABS: ABSOLUTE BASOPHIL COUNT 0.1 /CUMM (0.0-0.2); ABSOLUTE EOSINOPHIL COUNT 0.2 /CUMM (0.0-0.7); ABSOLUTE GRANULOCYTE CT 8.8 /CUMM (1.4-6.5); ABSOLUTE LYMPH COUNT 0.9 /CUMM (1.2-3.4); ABSOLUTE MONOCYTE COUNT 1.1 /CUMM (0.10-0.60); BASOPHIL % 0.6 % (0.0-2.0); EOSINOPHIL % 1.4 % (0-5); HEMATOCRIT 30.6 % (42-52); MEAN CORPUSCULAR HGB 31.4 PG (27.0-31.0); MEAN CORPUSCULAR HGB CONC 33.4 G/DL (33.0-37.0); MEAN PLATELET VOLUME 9.6 FL (7.4-10.4); PLATELET COUNT 191 /CUMM (130-400); RBC DISTRIBUTION WIDTH 16.7 % (11.5-14.5); RED BLOOD CELL CT 3.26 /CUMM (4.70-6.10)
--- NOTE | 2016-05-06 06:03 | PN- General Surgery ---
See Addendum Subjective Subjective: Patient remains intubated and lightly sedated due to agitation. Continues to have large amounts (>3L last 24 hours) of ascitic output via CONNIE drains and cutaneous fistula. Continues to have a bile leak from the left CONNIE drain, which was proven via a methylene blue test. Objective Vital Signs and I&Os Vital Signs Date Time Temp Pulse Resp B/P Pulse O2 O2 Flow FiO2 Ox Delivery Rate 05/06 0330 68 26 112/60 05/06 0330 98 Ventilator 40% 05/06 0300 40 05/06 0044 40 05/06 0000 99.2 88 26 138/80 05/06 0000 99.2 88 26 138/80 98 Ventilator 40% 05/06 0000 99 Ventilator 40% 05/05 2238 40 05/05 2000 100.0 96 28 148/90 05/05 2000 96 Ventilator 40% 05/05 1900 40 05/05 1610 40 05/05 1600 97.6 90 30 132/64 05/05 1600 95 Ventilator 40% 05/05 1600 97.6 90 30 132/64 96 Ventilator 40% 05/05 1438 40 05/05 1219 40 05/05 1200 98.7 97 26 124/61 05/05 1200 95 Ventilator 40% 05/05 0800 97.3 93 26 142/68 05/05 0800 95 Ventilator 40% 05/05 0800 97.3 93 26 142/68 95 Ventilator 40% 05/05 0750 40 Intake & Output 05/06 0800 / 0000 05/05 1600 12 0800 05/05 0000 11 1600 Intake Total 1996.0 1605.0 1574.0 1573.6 1762.0 Output Total 1920 2605 1290 1270 1980 Balance 76.0 -1000.0 284.0 303.6 -218.0 Intake, Blood 141 179 Product Intake, IV 775 595 640 640 811 Intake, Lipid 158.0 119.0 134.0 133.6 136.0 Intake, Oral 0 Intake, 922 712 800 800 815 TPN/PPN Number 2 0 Bowel Movements Output, 1425 1500 726 260 8418 Drainage Output, 70 50 Gastric Drainage Output, Other 475 150 Output, Urine 495 630 520 690 500 Patient 315 lb Weight Physical Exam: Gen: Intubated, sedated. Does not respond to verbal command this morning. Cor: S1+S2+ regular rate and rhythm Lungs: diminished breath sounds to grisel lung nathan. Rhonchi grisel. Abd: soft, ND, +BS x4. Dressing C/D/I around CONNIE drains. Ext: no edema to grisel lower extremities. Current Medications: Current Medications Sig/Roberto Start time Last Medication Dose Route Stop Time Status Admin Acetylcysteine 2 ML BID 04/30 2200 AC 05/05 INH 2105 Albuterol Sulfate 3 ML EVERY 4 HRS/AWAKE 05/01 2000 AC 05/05 INH 2105 Fat Emulsion 400 ML 1900 05/05 1900 AC 05/05 Intravenous IV 05/06 185 204 Fat Emulsion 400 ML 1900 05/04 1900 DC 05/04 Intravenous IV 05/05 1859 194 Heparin Sodium 5,000 UNIT Q8 04/24 1400 AC 05/05 (Porcine) SC 2230 Hydromorphone HCl 2 MG Q4-PRN PRN 05/04 1745 AC 05/05 IV 2233 Lactulose 1 BOT TID 05/05 1712 AC 05/05 TX 2231 Lorazepam 100 MG Q24H 05/01 0400 AC 05/05 Dextrose/Water 1,000 ML IV 2145 Lorazepam 2 MG Q1 PRN 04/29 1615 AC 05/05 IV 2245 Magnesium Sulfate 1 GM ONCE ONE 05/05 0915 MD 05/05 Dextrose/Water 100 ML IV 05/05 1314 0919 Meropenem 1 GM IQ8 05/03 1000 AC 05/06 IV 0012 Nystatin 1 LESLIE BID 05/04 2200 AC 05/05 TOP 2232 Nystatin 1 LESLIE Q6 05/03 1906 05/06 TOP 0012 Ondansetron HCl 4 MG Q8P PRN 04/22 0600 IV Pantoprazole Sodium 40 MG BID 04/22 2200 AC 05/05 IV 2232 Rifaximin 550 MG BID 05/05 1134 DC PO Sodium Chloride 1,000 ML .Q20H 05/05 0930 AC 05/05 IV 1140 Sodium Chloride 1,000 ML Q20H 05/04 1000 DC 05/05 IV 0522 Total Parenteral 1 UNIT 1900 05/05 1900 AC 05/05 Nutrition IV 05/06 [id number] Total Parenteral 1 UNIT 1900 05/04 1900 DC 05/04 Nutrition IV 05/05 1859 1940 Results Last 48 Hours of Labs: Laboratory Tests 05/06 05/05 0440 1820 Chemistry Sodium (137 - 145 mmol/L) 140 Potassium (3.5 - 5.1 mmol/L) 4.7 Chloride (98 - 107 mmol/L) 110 H Carbon Dioxide (22 - 30 mmol/L) 24 Anion Gap (5 - 16) 6 BUN (9 - 20 mg/dL) 22 H Creatinine (0.7 - 1.2 mg/dL) 0.6 L Estimated GFR (>60 ml/min) > 60 Glucose (65 - 99 mg/dL) 136 H Calcium (8.4 - 10.2 mg/dL) 9.2 Phosphorus (2.5 - 4.5 mg/dL) 4.2 Magnesium (1.6 - 2.3 mg/dL) 1.9 Total Bilirubin (0.2 - 1.3 mg/dL) 2.1 H AST (17 - 59 U/L) 69 H ALT (21 - 72 U/L) 51 Albumin (3.5 - 5.0 g/dL) 2.3 L Hematology CBC w Diff NO MAN DIFF REQ NO MAN DIFF REQ WBC (4.8 - 10.8 /CUMM) 11.0 H 10.5 RBC (4.70 - 6.10 /CUMM) 3.26 L 3.10 L Hgb (14.0 - 18.0 G/DL) 10.2 L 9.6 L Hct (42 - 52 %) 30.6 L 29.1 L MCV (80.0 - 94.0 FL) 94.0 93.9 MCH (27.0 - 31.0 PG) 31.4 H 30.8 RDW (11.5 - 14.5 %) 16.7 H 16.8 H Plt Count (130 - 400 /CUMM) 191 143 MPV (7.4 - 10.4 FL) 9.6 10.2 Gran % (42.2 - 75.2 %) 80.0 H 87.1 H Lymphocytes % (20.5 - 51.1 %) 7.8 L 5.8 L Monocytes % (1.7 - 9.3 %) 10.2 H 5.8 Eosinophils % (0 - 5 %) 1.4 1.3 Basophils % (0.0 - 2.0 %) 0.6 0 L Absolute Granulocytes (1.4 - 6.5 /CUMM) 8.8 H 9.1 H Absolute Lymphocytes (1.2 - 3.4 /CUMM) 0.9 L 0.6 L Absolute Monocytes (0.10 - 0.60 /CUMM) 1.1 H 0.6 Absolute Eosinophils (0.0 - 0.7 /CUMM) 0.2 0.1 Absolute Basophils (0.0 - 0.2 /CUMM) 0.1 0 PUBS MCHC (33.0 - 37.0 G/DL) 33.4 32.8 L 05/05 05/04 0400 2250 Chemistry Sodium (137 - 145 mmol/L) 139 139 Potassium (3.5 - 5.1 mmol/L) 4.8 5.0 Chloride (98 - 107 mmol/L) 111 H 112 H Carbon Dioxide (22 - 30 mmol/L) 21 L 22 Anion Gap (5 - 16) 7 5 BUN (9 - 20 mg/dL) 28 H 28 H Creatinine (0.7 - 1.2 mg/dL) 0.6 L 0.7 Estimated GFR (>60 ml/min) > 60 > 60 Glucose (65 - 99 mg/dL) 124 H 142 H Calcium (8.4 - 10.2 mg/dL) 9.1 8.9 Phosphorus (2.5 - 4.5 mg/dL) 4.7 H 4.7 H Magnesium (1.6 - 2.3 mg/dL) 1.8 1.9 Total Bilirubin (0.2 - 1.3 mg/dL) 1.8 H 1.7 H AST (17 - 59 U/L) 75 H 76 H ALT (21 - 72 U/L) 41 47 Troponin I (<0.11 ng/ml) 0.02 Albumin (3.5 - 5.0 g/dL) 2.2 L 2.2 L Prealbumin (17.6 - 36.0 mg/dL) 5.3 L Triglycerides (<150 mg/dL) 115 Hematology CBC w Diff MAN DIFF ORDERED WBC (4.8 - 10.8 /CUMM) 12.7 H RBC (4.70 - 6.10 /CUMM) 2.77 L Hgb (14.0 - 18.0 G/DL) 8.7 L Hct (42 - 52 %) 26.5 L MCV (80.0 - 94.0 FL) 95.8 H MCH (27.0 - 31.0 PG) 31.5 H RDW (11.5 - 14.5 %) 15.1 H Plt Count (130 - 400 /CUMM) 213 MPV (7.4 - 10.4 FL) 9.6 Gran % (42.2 - 75.2 %) 85.0 H Lymphocytes % (20.5 - 51.1 %) 5.4 L Monocytes % (1.7 - 9.3 %) 8.2 Eosinophils % (0 - 5 %) 1.3 Basophils % (0.0 - 2.0 %) 0.1 Absolute Granulocytes (1.4 - 6.5 /CUMM) 10.8 H Segmented Neutrophils (42.2 - 75.2 %) 81 H Band Neutrophils (0.0 - 5.0 %) 1 Absolute Lymphocytes (1.2 - 3.4 /CUMM) 0.7 L Lymphocytes (20.5 - 51.1 %) 1 L Monocytes (1.7 - 9.3 %) 15 H Absolute Monocytes (0.10 - 0.60 /CUMM) 1.0 H Eosinophils (0 - 5.0 %) 1 Absolute Eosinophils (0.0 - 0.7 /CUMM) 0.2 Basophils (0.0 - 2.0 %) 1 Absolute Basophils (0.0 - 0.2 /CUMM) 0 Platelet Estimate (ADEQUATE) ADEQUATE Polychromasia 1+ Poikilocytosis 2+ Ovalocytes 1+ Stomatocytes 1+ PUBS MCHC (33.0 - 37.0 G/DL) 32.9 L Other Body Source Fld Total RBCs Counted (%) 100 Assessment/Plan Assessment/Plan A: 50 year old male POD #15 s/p laparoscopic em patch for perforated duodenal ulcer with purulent peritonitis. Hospital course complicated by alcohol withdrawl requiring intubation/sedation, MATT-resolving, encephalopathy (hepatic vs metabolic) CONNIE drain #1 with what appears to be a leak from GI tract. On day #3 of restarting meropenem for increasing leukocytosis and fevers. Plan: Continue meropenem. Continue CONNIE drains (Drain #1 with bile leak) Attempts to wean off ventilator per ICU team. No acute surgical intervention at this time. possible trach today per surgical team Core Measures/Miscellaneous Venous Thromboembolism VTE Risk Factors: Acute medical illness, Age > 40, Obesity, Surgery VTE Contraindications: Abn Clotting Times VTE Prophylaxis Ordered Inpt Mechanical (ALPS/TEDS) VTE Diagnosis: No VTE Type: NONE VTE Confirmed by (Test): NONE Beta Terrence Is Beta Terrence a Home Med? Yes If Yes, Was This Ordered Today? No If No, Why Not? hypotension Antibiotics Is Patient on Antibiotics? No
--- NOTE | 2016-05-06 06:29 | RADIOLOGY REPORT ---
EXAMINATION: XR PORTABLE CHEST CLINICAL INFORMATION: Intubation. COMPARISON: Chest x-ray 05/05/2016. CT of the chest 05/03/2016 TECHNIQUE: Portable view of the chest was obtained. FINDINGS: Endotracheal tube catheter 5 cm above ching. Nasogastric tube in stomach. Right-sided PICC line catheter tip projecting over the right atrium. Linear subsegmental atelectasis at the peripheral left lung base. Lungs are otherwise clear. No pulmonary vascular congestion. No significant pleural effusion. IMPRESSION: Linear subsegmental atelectasis at left lung base. Lungs otherwise clear. Tubes and lines in good position.
--- NOTE | 2016-05-06 07:09 | PN- CRCU ---
Subjective HPI/Critical Care Issues: The patient remains intubated and restless. He remains on 3 mg of Ativan per hour. A rectal tube was inserted by nursing and attempt to administer lactulose enemas. The patient is only able to tolerate 500 mL of the enema. The patient' s MAXIMUM TEMPERATURE is 100. His white blood cell count remains at 11,000 without bandemia. He remains on meropenem. He continues to have significant drainage from all 3 CONNIE drains. He has excellent urine output. Neurology consult not done as the patient continues to be on sedation. The patient's deep tissue injury appears to be improving. Objective Current Medications: Current Medications Sig/Roberto Start time Last Medication Dose Route Stop Time Status Admin Acetylcysteine 2 ML BID 04/30 2200 AC 05/05 INH 2105 Albuterol Sulfate 3 ML EVERY 4 HRS/AWAKE 05/01 2000 AC 05/05 INH 2105 Fat Emulsion 400 ML 1900 05/05 1900 AC 05/05 Intravenous IV 05/06 1859 2041 Fat Emulsion 400 ML 1900 05/04 1900 DC 05/04 Intravenous IV 05/05 1859 1940 Heparin Sodium 5,000 UNIT Q8 04/24 1400 AC 05/05 (Porcine) SC 2230 Hydromorphone HCl 2 MG Q4-PRN PRN 05/04 1745 AC 05/05 IV 2233 Lactulose 1 BOT TID 05/05 1712 AC 05/05 OH 2231 Lorazepam 100 MG Q24H 05/01 0400 AC 05/05 Dextrose/Water 1,000 ML IV 2145 Lorazepam 2 MG Q1 PRN 04/29 1615 AC 05/05 IV 2245 Magnesium Sulfate 1 GM ONCE ONE 05/05 0915 DC 05/05 Dextrose/Water 100 ML IV 05/05 1314 0919 Meropenem 1 GM IQ8 05/03 1000 AC 05/06 IV 0012 Nystatin 1 LESLIE BID 05/04 2200 AC 05/05 TOP 2232 Nystatin 1 LESLIE Q6 05/03 1906 AC 05/06 TOP 0012 Ondansetron HCl 4 MG Q8P PRN 04/22 0600 AC IV Pantoprazole Sodium 40 MG BID 04/22 2200 AC 05/05 IV 2232 Rifaximin 550 MG BID 05/05 1134 DC PO Sodium Chloride 1,000 ML .Q20H 05/05 0930 AC 05/05 IV 1140 Sodium Chloride 1,000 ML Q20H 05/04 1000 DC 05/05 IV 0522 Total Parenteral 1 UNIT 1900 05/05 1900 AC 05/05 Nutrition IV 05/06 Total Parenteral 1 UNIT 1900 05/040 DC 05/04 Nutrition IV 05/05 Vital Signs & I&O Last 24 Hrs of Vitals and I&O: Vital Signs Date Time Temp Pulse Resp B/P Pulse O2 O2 Flow FiO2 Ox Delivery Rate 05/06 0619 40 05/06 0330 68 26 112/60 05/06 0330 98 Ventilator 40% 05/06 0300 40 05/06 0044 40 05/06 0000 99.2 88 26 138/80 05/06 0000 99.2 88 26 138/80 98 Ventilator 40% 05/06 0000 99 Ventilator 40% 05/05 2238 40 05/05 2000 100.0 96 28 148/90 05/05 2000 96 Ventilator 40% 05/05 1900 40 05/05 1610 40 05/05 1600 97.6 90 30 132/64 05/05 1600 95 Ventilator 40% 05/05 1600 97.6 90 30 132/64 96 Ventilator 40% 05/05 1438 40 05/05 1219 40 05/05 1200 98.7 97 26 124/61 05/05 1200 95 Ventilator 40% 05/05 0800 97.3 93 26 142/68 05/05 0800 95 Ventilator 40% 05/05 0800 97.3 93 26 142/68 95 Ventilator 40% 05/05 0750 40 Intake & Output 05/06 0800 05/06 0000 05/05 1600 Intake Total 1996.0 1605.0 Output Total 1920 2605 Balance 76.0 -1000.0 Intake, Blood 141 179 Product Intake, IV 775 595 Intake, Lipid 158.0 119.0 Intake, 922 712 TPN/PPN Number 2 Bowel Movements Output, 1425 1500 Drainage Output, Other 475 Output, Urine 495 630 Patient 315 lb Weight Exam General Appearance: intubated, intermittently agitated, moving all extremities, opens eyes but still not following commands Head: atraumatic Neck: supple Respiratory: no respiratory distress, few ronchi, lungs expand symmetrically, trachea is midline Cardiovascular: regular rate/rhythm, tachycardia, S1 and S2 heard Abdomen: CONNIE drains in place, distended, Extremities: warm and dry Skin: no cyanosis or edema Results Last 24 Hrs of Lab Results: Laboratory Tests 05/06/16 0605: pH 7.41, pCO2 30 L, pO2 86, HCO3 19 L, ABG O2 Sat (Measured) 96.0, P-50 (Temp Corrected) N, Carboxyhemoglobin 0.1 L, O2 Concentration % .40, Respiration Rate 26, O2 Delivery Method VENT, Vent Mode A/C, Expiratory Pressure 5, Tidal Volume 550, Phlebotomy Draw Site LEFT RADIAL 05/06/16 0440: Anion Gap 6, Estimated GFR > 60, Glucose 136 H, Calcium 9.2, Phosphorus 4.2, Magnesium 1.9, Total Bilirubin 2.1 H, AST 69 H, ALT 51, Albumin 2.3 L, CBC w Diff NO MAN DIFF REQ, RBC 3.26 L, MCV 94.0, MCH 31.4 H, RDW 16.7 H, MPV 9.6, Gran % 80.0 H, Lymphocytes % 7.8 L, Monocytes % 10.2 H, Eosinophils % 1.4, Basophils % 0.6, Absolute Granulocytes 8.8 H, Absolute Lymphocytes 0.9 L, Absolute Monocytes 1.1 H, Absolute Eosinophils 0.2, Absolute Basophils 0.1, PUBS MCHC 33.4 05/05/16 1820: CBC w Diff NO MAN DIFF REQ, RBC 3.10 L, MCV 93.9, MCH 30.8, RDW 16.8 H, MPV 10.2, Gran % 87.1 H, Lymphocytes % 5.8 L, Monocytes % 5.8, Eosinophils % 1.3, Basophils % 0 L, Absolute Granulocytes 9.1 H, Absolute Lymphocytes 0.6 L, Absolute Monocytes 0.6, Absolute Eosinophils 0.1, Absolute Basophils 0, PUBS MCHC 32.8 L Diagnostic Data CXR Findings: Pending. Impression/Plan Impression/Plan Impression/Plan: 1. POD # 15 status post laparoscopic Clint patch for perforated duodenal ulcer with peritonitis. 2. Ongoing respiratory failure which will require tracheostomy placement. 3. Stage IV cirrhosis. 4. Ongoing encephalopathy - hepatic? metabolic? 5. Anemia without active blood loss. 6. Deep tissue injury - right scapula area, improving. 7. Hyperchloremia, improving, likely from TPN. 8. Severe malnutrition. 9. Electrolyte abnormalities. Recommendations: * Await trach placement. * Please check a follow-up ammonia level and prealbumin (ordered). * Continue to wean Ativan down for an SAS of 3-4. * Continue lactulose enemas. * Follow up GI input. * Continue current ventilator settings. Check post-op ABG. * Continue meropenem, follow up ID recommendations. * Continue normal saline at 50 ML per hour. * Adjust TPN to correct metabolic derangements. * MVI, thiamine, folate to continue in TPN. * Continue ventilator bundle with DVT and GI prophylaxis. * Skin care protocol, off load deep tissue injury area. * Continue all supportive care. * Patient's family again updated by telephone. * Possible poor prognosis. TTS 56
[2016-05-06 08:00] VITALS: BP 142/70
--- NOTE | 2016-05-06 09:22 | PN- Cardiology ---
Subjective Subjective: The patient has not had any further arrhythmias. He remains intubated and sedated. His labs are stable. His potassium and magnesium are within normal limits. He continues to have significant output through his abdominal drains. Objective Vital Signs and I&Os Vital Signs Date Time Temp Pulse Resp B/P Pulse O2 O2 Flow FiO2 Ox Delivery Rate 05/06 0811 40 05/06 0619 40 05/06 0330 68 26 112/60 05/06 0330 98 Ventilator 40% 05/06 0300 40 05/06 0044 40 05/06 0000 99.2 88 26 138/80 05/06 0000 99.2 88 26 138/80 98 Ventilator 40% 05/06 0000 99 Ventilator 40% 05/05 2238 40 05/05 2000 100.0 96 28 148/90 05/05 2000 96 Ventilator 40% 05/05 1900 40 05/05 1610 40 05/05 1600 97.6 90 30 132/64 05/05 1600 95 Ventilator 40% 05/05 1600 97.6 90 30 132/64 96 Ventilator 40% 05/05 1438 40 05/05 1219 40 05/05 1200 98.7 97 26 124/61 05/05 1200 95 Ventilator 40% Intake & Output 05/06 1600 05/06 0800 05/06 0000 05/05 1600 05/05 0800 05/05 0000 Intake Total 1367.0 1996.0 1605.0 1574.0 1573.6 Output Total 2009 1919 2605 1290 1270 Balance -643.0 76.0 -1000.0 284.0 303.6 Intake, Blood 141 179 Product Intake, IV 631 775 595 640 640 Intake, Lipid 105.0 158.0 119.0 134.0 133.6 Intake, 631 922 712 800 800 TPN/PPN Number 1 2 Bowel Movements Output, 1175 1425 1500 550 580 Drainage Output, 100 70 Gastric Drainage Output, Other 475 150 Output, Stool 250 Output, Urine 485 495 630 520 690 Patient 308 lb 315 lb Weight Physical Exam: He is not responsive but agitated and moving all extremities. HEENT exam grossly normal Chest aerating well Heart regular rhythm no murmurs Extremities no edema pulses are present Current Medications: Current Medications Sig/Roberto Start time Last Medication Dose Route Stop Time Status Admin Acetylcysteine 2 ML BID 04/30 2200 AC 12/12 INH 2105 Albuterol Sulfate 3 ML EVERY 4 HRS/AWAKE 05/01 2000 AC 05/05 INH 2105 Fat Emulsion 400 ML 1900 05/05 1900 AC 05/05 Intravenous IV 05/06 [id number] Fat Emulsion 400 ML 1900 05/04 1900 DC 05/04 Intravenous IV 05/05 Heparin Sodium 5,000 UNIT Q8 04/24 1400 AC 05/06 (Porcine) SC 0656 Hydromorphone HCl 2 MG Q4-PRN PRN 05/04 1745 AC 05/06 IV 0657 Lactulose 1 BOT TID 05/05 1712 AC 05/05 SC 2231 Lorazepam 100 MG Q24H 05/01 0400 AC 05/05 Dextrose/Water 1,000 ML IV 2145 Lorazepam 2 MG Q1 PRN 04/29 1615 AC 05/06 IV 0656 Magnesium Sulfate 1 GM ONCE ONE 05/06 0745 AC Dextrose/Water 100 ML IV 05/06 1144 Magnesium Sulfate 1 GM ONCE ONE 05/05 0915 DC 05/05 Dextrose/Water 100 ML IV 05/05 1314 0919 Meropenem 1 GM IQ8 05/03 1000 AC 05/06 IV 0012 Nystatin 1 LESLIE BID 05/04 2200 AC 05/05 TOP 2232 Nystatin 1 LESLIE Q6 05/03 1906 AC 05/06 TOP 0656 Ondansetron HCl 4 MG Q8P PRN 04/22 0600 IV Pantoprazole Sodium 40 MG BID 04/22 2200 AC 05/05 IV 2232 Rifaximin 550 MG BID 05/05 1134 DC PO Sodium Chloride 1,000 ML .Q20H 05/05 0930 AC 05/05 IV 1140 Sodium Chloride 1,000 ML Q20H 05/04 1000 DC 05/05 IV 0522 Total Parenteral 1 UNIT 1900 05/05 1900 AC 05/05 Nutrition IV 05/06 Total Parenteral 1 UNIT 1900 05/04 190 DC 05/04 Nutrition IV 05/05 Results Last 48 Hrs of Labs/Mics: Laboratory Tests 05/06/16 06: pH 7.41, pCO2 30 L, pO2 86, HCO3 19 L, ABG O2 Sat (Measured) 96.0, P-50 (Temp Corrected) N, Carboxyhemoglobin 0.1 L, O2 Concentration % .40, Respiration Rate 26, O2 Delivery Method VENT, Vent Mode A/C, Expiratory Pressure 5, Tidal Volume 550, Phlebotomy Draw Site LEFT RADIAL 05/06/16 0440: Anion Gap 6, Estimated GFR > 60, Glucose 136 H, Calcium 9.2, Phosphorus 4.2, Magnesium 1.9, Total Bilirubin 2.1 H, AST 69 H, ALT 51, Albumin 2.3 L, CBC w Diff NO MAN DIFF REQ, RBC 3.26 L, MCV 94.0, MCH 31.4 H, RDW 16.7 H, MPV 9.6, Gran % 80.0 H, Lymphocytes % 7.8 L, Monocytes % 10.2 H, Eosinophils % 1.4, Basophils % 0.6, Absolute Granulocytes 8.8 H, Absolute Lymphocytes 0.9 L, Absolute Monocytes 1.1 H, Absolute Eosinophils 0.2, Absolute Basophils 0.1, PUBS MCHC 33.4 05/05/16 1820: CBC w Diff NO MAN DIFF REQ, RBC 3.10 L, MCV 93.9, MCH 30.8, RDW 16.8 H, MPV 10.2, Gran % 87.1 H, Lymphocytes % 5.8 L, Monocytes % 5.8, Eosinophils % 1.3, Basophils % 0 L, Absolute Granulocytes 9.1 H, Absolute Lymphocytes 0.6 L, Absolute Monocytes 0.6, Absolute Eosinophils 0.1, Absolute Basophils 0, PUBS MCHC 32.8 L 05/05/16 0400: Anion Gap 7, Estimated GFR > 60, Glucose 124 H, Calcium 9.1, Phosphorus 4.7 H, Magnesium 1.8, Total Bilirubin 1.8 H, AST 75 H, ALT 41, Troponin I 0.02, Albumin 2.2 L, Prealbumin 5.3 L, Triglycerides 115, CBC w Diff MAN DIFF ORDERED, RBC 2.77 L, MCV 95.8 H, MCH 31.5 H, RDW 15.1 H, MPV 9.6, Gran % 85.0 H, Lymphocytes % 5.4 L, Monocytes % 8.2, Eosinophils % 1.3, Basophils % 0.1, Absolute Granulocytes 10.8 H, Segmented Neutrophils 81 H, Band Neutrophils 1, Absolute Lymphocytes 0.7 L, Lymphocytes 1 L, Monocytes 15 H, Absolute Monocytes 1.0 H, Eosinophils 1, Absolute Eosinophils 0.2, Basophils 1, Absolute Basophils 0, Platelet Estimate ADEQUATE, Polychromasia 1+, Poikilocytosis 2+, Ovalocytes 1+, Stomatocytes 1+, PUBS MCHC 32.9 L, Fld Total RBCs Counted 100 05/04/16 2250: Anion Gap 5, Estimated GFR > 60, Glucose 142 H, Calcium 8.9, Phosphorus 4.7 H, Magnesium 1.9, Total Bilirubin 1.7 H, AST 76 H, ALT 47, Albumin 2.2 L Recent Imaging Studies: PATIENT: CECILIA BABCOCK PRESENT AGE: 50 PATIENT ACCOUNT NO: [id number] : 66 LOCATION: [facility] ORDERING PHYSICIAN: SERGIO BOYER MD SERVICE DATE: 05/06/16 EXAM TYPE: RAD - XRY-PORTABLE CHEST XRAY EXAMINATION: XR PORTABLE CHEST CLINICAL INFORMATION: Intubation. COMPARISON: Chest x-ray 05/05/2016. CT of the chest 05/03/2016 TECHNIQUE: Portable view of the chest was obtained. FINDINGS: Endotracheal tube catheter 5 cm above ching. Nasogastric tube in stomach. Right-sided PICC line catheter tip projecting over the right atrium. Linear subsegmental atelectasis at the peripheral left lung base. Lungs are otherwise clear. No pulmonary vascular congestion. No significant pleural effusion. IMPRESSION: Linear subsegmental atelectasis at left lung base. Lungs otherwise clear. Tubes and lines in good position. DICTATED BY: JAMES BASS MD DATE/TIME DICTATED:05/06/16621 [employer] ERECTING:STEF DATE/TIME TRANSCRIBED:05/06/16621 CONFIDENTIAL, DO NOT COPY WITHOUT APPROPRIATE AUTHORIZATION. <Electronically signed in Other Vendor System> SIGNED BY: JAMES BASS MD 05/06/16628 Assessment/Plan Assessment/Plan The patient is stable from a cardiac standpoint. He has only had 1 episode of nonsustained ventricular tachycardia, which was yesterday morning. Since then on the monitor he has only had an occasional isolated PVC. At this point I would just continue to monitor him and keep his electrolytes in the normal ranges. No further testing is necessary. Please call for any further cardiac input as needed.
--- NOTE | 2016-05-06 09:47 | PN- Resident CRCU ---
Subjective HPI/CRCU Issues: patient is a 50 y/o Male, with a significant past medical history of hypertension, hyperlipidemia, GERD, diverticulosis, degenerative joint disease, a vascular necrosis status post hip replacement, fatty liver disease, alcohol abuse presented with chronic alcohol abuse, nausea, vomting, abd distension and pain which got worse so he presented to ED on 04/21/2016. On Evaluation CT scan showed pneumoperitoneum, moderate ascites.On examination the abdomen was distended and tender to palpation , so diagnostic paracentesis was done which showed WBC 9504, RBC 2156. Because of the perforation, It seems that patient developed the secondary bacterial peritonitis. We took surgical consultation. The next couple of hours patient went into septicemia and shock. So he was given IV fluids and prophylactic antibiotics including ceftriaxone metronidazole and vancomycin. We catheterized the patient. Despite of these measures his blood pressure going down , so we took surgical consultation and plan for emergent surgery. Meantime, we intubated the patient and put him on mechanical ventilation(assist control mode, TV-500, respiratory rate 28, PEEP 5, FiO2 100%), triple-lumen catheter was placed in the right side of jugular vein. Patients blood pressure was continuosly going down, so we started him on Levothroid/vasopressin. We also started him on fentanyl and propofol drip. The culture of the ascites fluid came back positive for gram-negative. We took the consult from infectious disease specialist/Abdullahi Osuna MD. He advised to change ceftriaxone to ceftazidime and advised to wait for sensitivities report. Patient went to surgery on 04/22/2016. In postop, His blood pressure was 119/62. He is improving after surgery. When blood pressure remained maintained to normal , we stopped all the pressures and also slowly stopped sedation. We tried weaning multiple times. In between the patient started having fever of 100.2, awaited. CT scan of chest/abdomen/pelvis on 04/29/2016 which showed moderate right-sided pleural effusion and consolidation and collapse of right lower lobe. On 05/02/2016. Patient was diagnosed as having continuous leak from his perforated ulcer, which was confirmed by the methylene Blue, which came out of JP1 drain. According to surgery. There is no any active intervention was required. So patient was treated conservatively. It was difficult to relieve the patient's so it was decided to do a tracheostomy on 05/06/2016 and keep the patient on ventilator. CRCU issues - Tracheostomy (05/06/2016) Perforated duodenal ulcer s/p exploratory laparoscopy with grahm plication of duodenal ulcer Secondary bacterial Peritonitis Septic shock with MODS/ MATT improving/ Lactic acidosis improving/ Alcoholic hepatitis with transaminitis Ascitis Sigmoid Diverticulitis Hypertension Hyperlipidemia Morbidly Obese 24 Hour Events: Patient is seen and examined at the bedside. It was difficult to decrease infusion rate of Ativan, as patient becomes more restless.It was decided that patient should have tracheostomy because he needs long-term ventilation. Objective Vital Signs & I&O Last 8 Hrs of Vitals and I&O: Vital signs Temperature-100.0 HR -97 Blood pressure -148/90 FiO2 40% Exam General Appearance: well developed/nourished, anxious, mild distress, obese Head: atraumatic, normal appearance Ears, Nose, Throat: patient was having Et tube and NG tube in morning and afterenoon he got trachestomy in place. Neck: normal inspection, supple Respiratory: chest non-tender, no respiratory distress, quiet respiration, crackles Cardiovascular: regular rate/rhythm, edema Gastrointestinal: soft, distention, tenderness Extremities: normal inspection, swelling Weaning Parameters NIF: 17 Minute Volume: 5.09 Resp rate: 26 Vt: 150 Heart Rate: 84 Weaning Schedule Start Time: 1105 Minute Volume: 10.3 Resp Rate: 18 Vt: 621 Heart Rate: 83 End Time: 1107 Minute Volume: 0 Resp Rate: 0 Vt: 0 Heart Rate: 83 Current Medications: Current Medications Sig/Roberto Start time Last Medication Dose Route Stop Time Status Admin Acetylcysteine 2 ML BID 04/30 2200 DC 05/05 INH 2105 Albuterol Sulfate 3 ML EVERY 4 HRS/AWAKE 05/01 2000 AC 05/06 INH 1244 Fat Emulsion 400 ML 19005/06 AC Intravenous IV 05/07 185 Fat Emulsion 400 ML 1900 05/05 190 AC 05/05 Intravenous IV 05/06 185 2041 Fat Emulsion 400 ML 05/04 DC 05/04 Intravenous IV 05/05 185 1940 Glycopyrrolate 200 MCG ONE ONE 05/06 1345 DC 05/06 IV 05/06 1346 1428 Heparin Sodium 5,000 UNIT Q8 04/24 1400 AC 05/06 (Porcine) SC 1428 Hydromorphone HCl 2 MG Q4-PRN PRN 05/04 1745 AC 05/06 IV 1042 Lactulose 1 BOT TID 05/05 1712 AC 05/05 WA 2231 Lorazepam 100 MG Q24H 05/01 0400 AC 05/05 Dextrose/Water 1,000 ML IV 2145 Lorazepam 2 MG Q1 PRN 04/29 1615 AC 05/06 IV 0945 Magnesium Sulfate 1 GM ONCE ONE 05/06 0745 DC 05/06 Dextrose/Water 100 ML IV 05/06 1144 0918 Meropenem 1 GM IQ8 05/03 1000 AC 05/06 IV 0918 Nystatin 1 LESLIE BID 05/04 2200 AC 05/06 TOP 0918 Nystatin 1 LESLIE Q6 05/03 1906 AC 05/06 TOP 1259 Ondansetron HCl 4 MG Q8P PRN 04/22 0600 AC IV Pantoprazole Sodium 40 MG BID 04/22 2200 AC 05/06 IV 0918 Rifaximin 550 MG BID 05/05 1134 DC PO Sodium Chloride 1,000 ML .Q20H 05/05 0930 AC 05/06 IV 0918 Total Parenteral 1 UNIT 1900 05/06 1900 AC Nutrition IV 05/07 1859 Total Parenteral 1 UNIT 1900 05/05 1900 AC 05/05 Nutrition IV 05/06 1859 2029 Total Parenteral 1 UNIT 1900 05/04 1900 DC 05/04 Nutrition IV 05/05 1859 1940 Impression/Plan Impression/Problem List Impression: Impression and Plan - Patient is on low-dose Ativan drip. Patient is leaking from the operated side, surgeons are already awair, but it is making prognosis at poor side. He had tracheastomy on 05/06/2016. POD-15 Ventilator -D15 right sided PICC line - D9, CONNIE drains-3 - D15 Foleys cathter -D15 ABG - pH-7.41, PCO2 32, PO2 78, bicarbonate 20 Respiratory * According to Dr. Arroyo, We'll keep the CVP of 12 and BP > [address] Balderas says keep SAS 3-4. * He is on ventilator, Ventilator Settings is -AC, TV-550, IPAP -24, RR-24, PEEP -5, Fio2 40. * There is decreased air entry on the right middle and lower lobe * 05/01/2016 Patient was having right sided pleural effusion. On ultrasound it was found,it is very mild and the radiologist says that there is more chances of pneumothorax, even If they try even for diagnostic purposes.So it was decided not to do a thoracocentesis * we will try for weaning when patient become more alert. * Patient had trachestomy on 05/06/2016 as pt is not weanable Neurology * Although patient is awake but responding to commands.We were suspecting Wernicke's encephalopathy. So we gave high dose thiamine for total 9 days( 05/02) * We did CT head which doent showed any intracranial pathology. * We also checked for serum ammonia which come back to 45 (04/29/2016),25 (05/06) * We will continue ativan drip, as patient get very agitated off Ativan. * We placed the neurology consult to get their opinion regarding encephalopathy, but patient is on ativan drip so they are not able to evaluate it. They will follow up as patient become more alert and oriented. Infectious * Ascitic fluids was growing -enterobacter cloacae and alpha strept. * We will follow ID rcms * Discussed with Dr Osuna, patient doesnt need antibiotics. We stopped Meopenem 1g iv 8hrly, as there is no focus and patient already had 7 days course of antibiotics on 04/30/2016. * Inj meropenem 1g Q8 was restarted on 05/03/2016. * on 04/22/2016 To rule out the source of infection. We orderd CT chest/abdomen/ pelvis, which showed moderate right-sided pleural effusion with right lower lobe consolidation and collapse. * CT scan on 05/04/2016 reported persistent moderate right pleural effusion and small left pleural effusion. Persistent collapse/consolidation of right lower lobe and, to a lesser degree, left lower lobe. Subsegmental atelectasis within the superior lingula has increased. Hepatosplenomegaly. Persistent small volume of ascitic fluid in the abdomen and pelvis, and edema of the mesentery. There are no newly developing fluid collections. The drainage catheters are in stable position compared to 04/29/2016. * urine culture doesnt showed any bacterial growth. * Also we will monitor for possible fungemia but will hold off on anti-fungals for now. Hematology - * Hb-10.2. * We will suplement MultiVit, Thiamine, folic acid. Cardiology * Patient is hemodynamically stable * According to Dr Villatoro his recent troponins are negative so we will observe , if again have NSVT in future than we will revaluate. Gastroenterology * There are 3 CONNIE drains , there was greenish fluid in the CONNIE-1 drain after methylene blue injection. ? Opertaed site is leaking, but we will go for condervative management. * According to the surgeons, TPN, weaning trial,Nothing by mouth and NG tube decompression, GI prophylaxis, monitoring CONNIE output. * Abdoman is soft, there are mild bowel sounds on examiantion * We will do strict Intake output Charting * We will follow GI rcms * We stopped albumin on 04/29/2016. * We started giving lactulose from NG tube but residual was >100cc.So we stopped it and started him on lactulose enemas Q6 PRN,but he had bleeding. * We placed consult for Dr Hernandez to give opinion for further management. Urology * BUN -22 Cr-0.6 * We'll monitor it regularly * We will continue IV fluids changed to 1/2 NS and 50ml/hr * Strict I/O charting Endocrine * TSH -8.9, T4 -1.85 * It seems patient is having Sick Euthyroid syndrome. * We discussed with endocrinology. * We will repeat TFT after patient get recovered. Skin * There are multiple dressings on the skin, abdomen for drain, * PICC line is on the right-hand Alimentry * Mg is 1.9, we will supplement 1gm IV today and also increase in TPN. Diet -continue TPN as advised by dietitian. DVT prophylaxis -ALPS/ Heparin CODE STATUS-full code Problem List: 1. Metabolic alkalosis 2. Pleural effusion 3. At risk for ventilator-associated event 4. Peritonitis 5. Alcoholic hepatitis 6. Hypomagnesemia 7. Perforation bowel Pain Ratin Tomorrow's Labs & Rationales: cbc,ICU bundle Plan DVT/Prophylaxis: mechanical
--- NOTE | 2016-05-06 09:55 | PN- Infect Dx ---
Subjective Subjective: MAXIMUM TEMPERATURE 100. He remains on Ativan. Objective Last 24 Hrs of Vital Signs/I&O Vital Signs Date Time Temp Pulse Resp B/P Pulse O2 O2 Flow FiO2 Ox Delivery Rate 05/06 0811 40 05/06 0619 40 05/06 0330 68 26 112/60 05/06 0330 98 Ventilator 40% 05/06 0300 40 05/06 0044 40 05/06 0000 99.2 88 26 138/80 05/06 0000 99.2 88 26 138/80 98 Ventilator 40% 05/06 0000 99 Ventilator 40% 05/05 2238 40 05/05 2000 100.0 96 28 148/90 05/05 2000 96 Ventilator 40% 05/05 1900 40 05/05 1610 40 05/05 1600 97.6 90 30 132/64 05/05 1600 95 Ventilator 40% 05/05 1600 97.6 90 30 132/64 96 Ventilator 40% 05/05 1438 40 05/05 1219 40 05/05 1200 98.7 97 26 124/61 05/05 1200 95 Ventilator 40% Intake & Output 05/06 1600 05/06 0800 05/06 0000 Intake Total 1367.0 1996.0 Output Total 2009 1919 Balance -643.0 76.0 Intake, Blood 141 Product Intake, IV 631 775 Intake, Lipid 105.0 158.0 Intake, 631 922 TPN/PPN Number 1 2 Bowel Movements Output, 1175 1425 Drainage Output, 100 Gastric Drainage Output, Stool 250 Output, Urine 485 495 Patient 308 lb Weight Physical Exam Other Physical Findings: He is arousable to voice but does not follow commands Lungs are clear Heart regular rhythm with no murmur Abdomen is mildly distended, nontender, positive bowel sounds; 3 CONNIE drains remain in place, with turbid fluid in drain #1 Extremities no cyanosis, clubbing or edema; PICC in the right upper extremity with no inflammation at the site Ann catheter remains in place Results Last 24 Hours of Lab Results: Laboratory Tests 05/06 05/06 0605 0440 Blood Gas pH (7.35 - 7.45 PH) 7.41 pCO2 (35 - 45 TORR) 30 L pO2 (80 - 100 TORR) 86 HCO3 (21 - 28 MEQ/L) 19 L ABG O2 Sat (Measured) (>96.0 %) 96.0 P-50 (Temp Corrected) N Carboxyhemoglobin (1.5 - 5.0 %) 0.1 L O2 Concentration % .40 Respiration Rate (BPM) 26 O2 Delivery Method VENT Vent Mode A/C Expiratory Pressure (CMH2O/P) 5 Tidal Volume (CC) 550 Chemistry Sodium (137 - 145 mmol/L) 140 Potassium (3.5 - 5.1 mmol/L) 4.7 Chloride (98 - 107 mmol/L) 110 H Carbon Dioxide (22 - 30 mmol/L) 24 Anion Gap (5 - 16) 6 BUN (9 - 20 mg/dL) 22 H Creatinine (0.7 - 1.2 mg/dL) 0.6 L Estimated GFR (>60 ml/min) > 60 Glucose (65 - 99 mg/dL) 136 H Calcium (8.4 - 10.2 mg/dL) 9.2 Phosphorus (2.5 - 4.5 mg/dL) 4.2 Magnesium (1.6 - 2.3 mg/dL) 1.9 Total Bilirubin (0.2 - 1.3 mg/dL) 2.1 H AST (17 - 59 U/L) 69 H ALT (21 - 72 U/L) 51 Albumin (3.5 - 5.0 g/dL) 2.3 L Hematology CBC w Diff NO MAN DIFF REQ WBC (4.8 - 10.8 /CUMM) 11.0 H RBC (4.70 - 6.10 /CUMM) 3.26 L Hgb (14.0 - 18.0 G/DL) 10.2 L Hct (42 - 52 %) 30.6 L MCV (80.0 - 94.0 FL) 94.0 MCH (27.0 - 31.0 PG) 31.4 H RDW (11.5 - 14.5 %) 16.7 H Plt Count (130 - 400 /CUMM) 191 MPV (7.4 - 10.4 FL) 9.6 Gran % (42.2 - 75.2 %) 80.0 H Lymphocytes % (20.5 - 51.1 %) 7.8 L Monocytes % (1.7 - 9.3 %) 10.2 H Eosinophils % (0 - 5 %) 1.4 Basophils % (0.0 - 2.0 %) 0.6 Absolute Granulocytes (1.4 - 6.5 /CUMM) 8.8 H Absolute Lymphocytes (1.2 - 3.4 /CUMM) 0.9 L Absolute Monocytes (0.10 - 0.60 /CUMM) 1.1 H Absolute Eosinophils (0.0 - 0.7 /CUMM) 0.2 Absolute Basophils (0.0 - 0.2 /CUMM) 0.1 PUBS MCHC (33.0 - 37.0 G/DL) 33.4 Miscellaneous Phlebotomy Draw Site LEFT RADIAL 05/05 1820 Hematology CBC w Diff NO MAN DIFF REQ WBC (4.8 - 10.8 /CUMM) 10.5 RBC (4.70 - 6.10 /CUMM) 3.10 L Hgb (14.0 - 18.0 G/DL) 9.6 L Hct (42 - 52 %) 29.1 L MCV (80.0 - 94.0 FL) 93.9 MCH (27.0 - 31.0 PG) 30.8 RDW (11.5 - 14.5 %) 16.8 H Plt Count (130 - 400 /CUMM) 143 MPV (7.4 - 10.4 FL) 10.2 Gran % (42.2 - 75.2 %) 87.1 H Lymphocytes % (20.5 - 51.1 %) 5.8 L Monocytes % (1.7 - 9.3 %) 5.8 Eosinophils % (0 - 5 %) 1.3 Basophils % (0.0 - 2.0 %) 0 L Absolute Granulocytes (1.4 - 6.5 /CUMM) 9.1 H Absolute Lymphocytes (1.2 - 3.4 /CUMM) 0.6 L Absolute Monocytes (0.10 - 0.60 /CUMM) 0.6 Absolute Eosinophils (0.0 - 0.7 /CUMM) 0.1 Absolute Basophils (0.0 - 0.2 /CUMM) 0 PUBS MCHC (33.0 - 37.0 G/DL) 32.8 L Last 24 Hours of Garcia Results: Blood cultures 2 May 02 remain negative Recent Imaging Studies: Chest x-ray May 06, personally reviewed, reveals clear lungs with decreased congestion; linear subsegmental atelectasis at the left lung base Assessment/Plan Impression: Stable with temperatures lower grade and white blood cell count decreasing with the resumption of Meropenem 3 days ago in the setting of a presumed leak from his perforated ulcer now 2 weeks status post laparoscopic Clint plication. The recent CT scan does not reveal any collection. He is scheduled for a tracheostomy today with consideration of placement of an NJ tube noted. Suggestion: 1. Further evaluation/management of the presumed duodenal leak per Surgery 2. Continue Meropenem
[2016-05-06 11:07] LABS: PT 16.5 SEC (9.4-12.5); PTT 38 SEC (25-37)
--- NOTE | 2016-05-06 11:30 | NUR ---
@ 0700-RECEIVED PT SEDATED ON ATIVAN GTT @ 3MG/HR. SOFT BILATERAL WRIST RESTRAINTS INPLACE PER ORDER. #8 ETT TO R LIP AT 24CM ON VENTILATOR FIO2=40%. AWAITING OR FOR TRACH PLACEMENT. BITE BLOCK INPLACE. 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 1GRAM MAGNESIUM IV BOLUS INFUSING PER EMAR. AFEBRILE. NGT TO R NARE TO LCWS WITH BILIOUS DRAIANGE NOTED AT THIS TIME. FLEXISEAL RECTAL TUBE DRAINING LIQUID BROWN STOOL IN SMALL AMOUNTS. LACTULOSE ENEMA UNABLE TO INFUSE AT THIS TIME D/T GOING TO OR. DR JOHNSON NOTIFIED. TO RESUME LACTULOSE ENEMAS PER EMAR UPON RETURN FROM OR. STERLING INSITU DRAINING CLEAR/PATRICK URINE IN ADEQUATE AMOUNTS. 3 CONNIE SITES TO ABDOMEN TO SELF SUCTION. FREQUENT EMPTYING OF JPS NEEDED. RIGHT LOWER ABDOMINAL STAPLE SITE WITH OSTOMY BAG INTACT TO COLLECT LARGE AMOUNT OF SERROUS DRAINAGE. DRESSINGS CHANGED AT SHIFT CHANGE BY NIGHT RN-BLAYNE SPONGE & FLUFF F/B ABD PADS & PAPER TAPE TO 3 CONNIE INSERTION SITES REMAIN INTACT. NIHARIKA TLC PICC INFUSING IV ATIVAN, IVF & TPN/LIPIDS PER EMAR. RED PORT REMAINS OPEN FOR MEDS. BLOOD RETURN NOTED TO ALL PORTS-DSG INTACT. @ 0900-PREOP SCRUB COMPLETED. @ 1100-PT BROUGHT TO OR PREOP SUITE IN ICU SPECIALTY BED BY THIS RN, ACCOMPANIED BY RESP THERAPIST SONYA & DISTRIBUTION ON TIER TRUCK DRIVER W/ABOVE IV INFUSIONS & TUBES INTACT. NGT CLAMPED FOR TRAVEL TO OR. REPORT GIVEN TO MARGI CARBAJAL, CIRCULATING RN-LUIS ANTONIO, ANESTHESIOLOGIST-DR CORTES & SURGICAL PA NICHO. MOTHER-JEANETTE BROUGHT TO OR SUITE TO SIGN ANESTHESIA CONSENT. OR TEAM TO CALL ICU ONCE PROCEDURE IS COMPLETE TO BRING PT BACK TO ROOM FOR RECOVERY BY THIS FITTER HAND.
--- NOTE | 2016-05-06 13:30 | NUR ---
@ 1220-RECEIVED PT FROM OR AFTER #9 PORTEX TRACHEOSTOMY TUBE W/INNER CANNULA WAS PLACED BY DR SANDOVAL TO RECOVER IN ICU ROOM & RESUME ICU CARE OF PT. PT RECEIVED 250ML IV NS, IV ZOFRAN, IV ROCURONIUM & IV FENTANYL PER [facility] SOLOMON BRENNAN INTRA OP. SEE PACU FLOWSHEET FOR DETAILS & VITAL SIGNS. PT PLACED ON PREOP VENTILATOR SETTINGS VIA TRACH OF AC=26/GH=298/FIO2=40%/PEEP=5. AFEBRILE. NGT REMAINS IN R NARE @ 60CM-UNABLE TO EVALUATE BACK OF THROAT D/T BITE BLOCK INTACT AT THIS TIME & WAS RETAPED IN OR & PLACED BACK TO [facility] W/NO VERNELL. EBL=15ML PER [facility] REPORT. FINGERSTICK [id number]. ATIVAN GTT DECREASED TO 2MG/HR PER DR PANDEY @ 1240. STERLING INSITU DRAINING PATRICK URINE IN ADEQUATE AMOUNT. RECTAL TUBE REMAINS TO GRAVITY. OSTOMY COLLECTION BAG TO R ABD STAPLE SITE INTACT. CONNIE SITES X3 TO ABDOMEN REMAIN TO SELF SUCTION & EMPTIED AT THIS TIME. SEE ICU FLOW SHEET FOR INTAKE & OUTPUT AMOUNTS. NIHARKIA TLC PICC INTACT WITH 1/2NS @ 50ML/HR, IV ATIVAN, TPN @ 100ML/HR & LIPIDS @ 16.7ML/HR INFUSING PER ICU FLOW SHEET. RED PORT REMAINS OPEN FOR ADDITIONAL IV MEDS. COPIOUS CLEAR BLOOD TINGED ORAL SECRETIONS VIA YANKHAUER SUCTION. SCANT INLINE SECRETIONS VIA TRACH. SUCTION CHANGED TO TRACH INLINE CATHETER BY SONYA-RESP THERAPIST. WILL CONTINUE TO MONITOR. FAMILY AT BEDSIDE. ICU CARE RESUMED.
[2016-05-06 16:00] VITALS: BP 110/70
--- NOTE | 2016-05-06 16:40 | PN- Student ---
ARIADNA QUICK 05/06/16 4338: Subjective Subjective: Post-op check s/p tracheostomy, day 0 Patient was brought to OR for a tracheostomy today. Currently resting back in ICU, back on ventilator. Objective Objective: Currently the tube remains midline, with sutures intact. Tube is secured with strap around neck. There is dressing under base of tube, but no dressing over it. The dressing is moderately saturated with blood. Tube connected to ventilator. Skin around tube slightly erythematous, but no signs of infection, ecchymosis. Assessment/Plan Assessment: 50 yo man s/p exploratory laparoscopy with em plication of duodenal ulcer and core liver biopsy on Apr 22 now s/p tracheostomy tube placement post- operative day 0. - Change dressing as needed, monitor for skin tearing around suture sites - Continue care per ICU/medicine team EDER Lamar 05/06/16 5517: Assessment/Plan Assessment: agree with above PAJorgeS note
--- NOTE | 2016-05-06 16:42 | Operative Report ---
Operative/Inv Procedure Report Surgery Date: 05/06/16 Name of Procedure: Tracheostomy Pre-Operative Diagnosis: Ventilatory dependency Post-Operative Diagnosis: Same Estimated Blood Loss: scant Surgeon/Immigration Specialist: Isaac Pickard MD Anesthesia: general endotracheal tube Operative/Procedure Note Note: After placement of monitoring lines and induction of general anesthesia the patient's neck was prepped with chlorhexidine scrub and draped in a sterile fashion. An incision was made in the skin crease and carried down to the pre- tracheal fascia. The hyoid bone was identified and the first tracheal ring was isolated with a tracheal hook and elevated into the field. An incision was made in the second tracheal ring and a portion of the ring was resected. The endotracheal tube cuff was then deflated and the endotracheal tube was slowly and carefully backed out above the tracheotomy incision. A #9 Portex tracheostomy tube was then inserted into the distal trachea and with ventilation there was good return of CO2 and stabilization of the patient's respiratory status. Hemostasis was achieved with electrocautery and surgical clips. The wound was dressed with Xeroform gauze and a trach gauze. It was secured to the skin with some interrupted Prolene sutures. The patient tolerated the procedure well and was returned to the intensive care unit in stable condition.
--- NOTE | 2016-05-06 16:46 | Cons- Thoracic Surgery ---
General Information and HPI Consulting Request Date of Consult: 05/05/16 Requested By: Saad PANDEY MD Reason for Consult: Ventilator dependency and evaluation for tracheostomy Source of Information: old records, PCP Exam Limitations: unable to give history, not alert/orientated, clinical condition History of Present Illness: The patient is a 50-year-old gentleman who has been in the intensive care unit status post laparotomy for perforation. He has been respiratory dependent on the ventilator and thoracic surgical evaluation is asked for tracheostomy placement to help in airway care and weaning from the respirator. Allergies/Medications Allergies: Coded Allergies: NO KNOWN ALLERGIES (08/27/12) Home Med List: Atorvastatin Calcium 40 MG TABLET 1 TAB PO DAILY CHOLESTROL (Reported) Chondroitin Sulf/Glucosamine (Glucosamine & Chondroitin) 1 CAP CAP 1 CAP PO DAILY SUPPLEMENT (Reported) Fluoxetine HCl 40 MG CAPSULE 1 CAP PO QAM DEPRESSION (Reported) Folic Acid 1 MG TAB 1 MG PO DAILY SUPPLEMENT Lisinopril 20 MG TABLET 1 TAB PO DAILY BP (Reported) Meclizine HCl 25 MG TABLET 1 TAB PO TID DIZZINESS (Reported) Metoprolol Succinate (Toprol XL) [address] 1 TAB PO DAILY BP (Reported) Current Medications: Current Medications Sig/Roberto Start time Last Medication Dose Route Stop Time Status Admin Acetylcysteine 2 ML BID 04/30 2200 DC 05/05 INH 2105 Albuterol Sulfate 3 ML EVERY 4 HRS/AWAKE 05/01 2000 AC 05/06 INH 1623 Fat Emulsion 400 ML 1900 05/06 1900 AC Intravenous IV 05/07 1859 Fat Emulsion 400 ML 1900 05/05 1900 AC 05/05 Intravenous IV 05/06 1859 2041 Fat Emulsion 400 ML 1900 05/04 1900 DC 05/04 Intravenous IV 05/05 1859 1940 Glycopyrrolate 200 MCG ONE ONE 05/06 1345 DC 05/06 IV 05/06 1346 1428 Heparin Sodium 5,000 UNIT Q8 04/24 1400 AC 05/06 (Porcine) SC 1428 Hydromorphone HCl 2 MG Q4-PRN PRN 05/04 1745 AC 05/06 IV 1042 Lactulose 1 BOT TID 05/05 1712 AC 05/05 DE 2231 Lorazepam 100 MG Q24H 05/01 0400 AC 05/05 Dextrose/Water 1,000 ML IV 2145 Lorazepam 2 MG Q1 PRN 04/29 1615 DC 05/06 IV 0945 Magnesium Sulfate 1 GM ONCE ONE 05/06 0745 DC 05/06 Dextrose/Water 100 ML IV 05/06 1144 0918 Meropenem 1 GM IQ8 05/03 1000 AC 05/06 IV 0918 Nystatin 1 LESLIE BID 05/04 2200 AC 05/06 TOP 0918 Nystatin 1 LESLIE Q6 05/03 1906 AC 05/06 TOP 1259 Ondansetron HCl 4 MG Q8P PRN 04/22 0600 AC IV Pantoprazole Sodium 40 MG BID 04/22 2200 AC 05/06 IV 0918 Rifaximin 550 MG BID 05/05 1134 DC PO Sodium Chloride 1,000 ML .Q20H 05/05 0930 AC 05/06 IV 0918 Total Parenteral 1 UNIT 1900 05/06 1900 AC Nutrition IV 05/07 1859 Total Parenteral 1 UNIT 1900 05/05 1900 AC 05/05 Nutrition IV 05/06 1859 2029 Total Parenteral 1 UNIT 1900 05/04 1900 DC 05/04 Nutrition IV 05/05 185 1940 Past History Medical History Blood Transfusion Hx: No Neurological: vertigo EENT: NONE Cardiovascular: hypertension, HYPERLIPIDEMIA Respiratory: NONE Gastrointestinal: GERD, DIVERTICULOSIS Hepatic: "FATTY LIVER" Renal: NONE Musculoskeletal: chronic back pain, degen joint disease Psychiatric: alcohol dependence, anxiety Endocrine: NONE Blood Disorders: NONE Cancer(s): NONE NUT CRACKER/Reproductive: NONE Surgical History Pertinent Surgical History: appendectomy, hip replacement (left), B/L shoulder surgeries LEFT WRIST SURGERY Family History Relations & Conditions If Any: FATHER, ; Cause: Lung malignancy. Psychosocial History Where Do You Live? Home Who Do You Live With? self Services at Home: None Smoking Status: Never Smoked ETOH Use: heavy use, alcoholic, daily >1 pint vodka Illicit Drug Use: denies illicit drug use Functional Ability ADLs Independent: dressing, eating, toileting, bathing. Ambulation: independent IADLs Independent: shopping, housework, finances, food prep, telephone, transportation , medication admin. Employment History Employment: Unemployed Review of Systems Review of Systems: Not obtainable as the patient is sedated and confused on a respirator. Exam & Diagnostic Data Vital Signs and I&O Vital Signs Date Time Temp Pulse Resp B/P Pulse O2 O2 Flow FiO2 Ox Delivery Rate 05/06 1352 50 05/06 1253 40 05/06 0811 40 05/06 0619 40 05/06 0330 68 26 112/60 05/06 0330 98 Ventilator 40% 05/06 0300 40 05/06 0044 40 05/06 0000 99.2 88 26 138/80 05/06 0000 99.2 88 26 138/80 98 Ventilator 40% 05/06 0000 99 Ventilator 40% 05/05 2238 40 05/05 2000 100.0 96 28 148/90 05/05 2000 96 Ventilator 40% 05/05 1900 40 Intake & Output 05/06 1600 05/06 0800 05/06 0000 05/05 1600 05/05 0800 05/05 0000 Intake Total 1367.0 1996.0 1605.0 1574.0 1573.6 Output Total 2009 1919 2605 1290 1270 Balance -643.0 76.0 -1000.0 284.0 303.6 Intake, Blood 141 179 Product Intake, IV 631 775 595 640 640 Intake, Lipid 105.0 158.0 119.0 134.0 133.6 Intake, 631 922 712 800 800 TPN/PPN Number 1 2 Bowel Movements Output, 1175 1425 1500 550 580 Drainage Output, 100 70 Gastric Drainage Output, Other 475 150 Output, Stool 250 Output, Urine 485 495 630 520 690 Patient 308 lb 315 lb Weight Physical Exam: On examination his skin is warm and well perfused. The sclerae are anicteric and his mucous membranes are moist. There is no cervical or supraclavicular lymphadenopathy. The breath sounds are coarse bilaterally. His cardiac exam shows a regular rhythm and rate with no murmurs or extra sounds. The abdomen has an intact dressing with multiple Speedy-Hanson drains are draining serous effusion. The periphery shows 2+ edema with no cyanosis. Neurologic exam is not possible as the patient is not following commands. Last 24 Hours of Labs: Laboratory Tests 05/06 05/06 05/06 05/06 1410 1350 1045 0605 Blood Gas pH (7.35 - 7.45 PH) 7.41 7.41 pCO2 (35 - 45 TORR) 32 L 30 L pO2 (80 - 100 TORR) 78 L 86 HCO3 (21 - 28 MEQ/L) 20 L 19 L ABG O2 Sat (Measured) (>96.0 %) 94.0 L 96.0 P-50 (Temp Corrected) N Carboxyhemoglobin (1.5 - 5.0 %) 0.5 L 0.1 L O2 Concentration % 50 .40 Respiration Rate (BPM) 26 26 O2 Delivery Method ESPRIT VENT Vent Mode VC-AV A/C Expiratory Pressure (CMH2O/P) 5 5 Tidal Volume (CC) 550 550 Chemistry Ammonia (9 - 30 umol/L) 25 Prealbumin (17.6 - 36.0 mg/dL) 5.3 L Coagulation PT (9.4 - 12.5 SEC) 16.5 H INR (0.90 - 1.17) 1.58 H APTT (25 - 37 SEC) 38 H Miscellaneous Phlebotomy Draw Site LEFT RADIAL LEFT RADIAL 05/06 05/05 0440 1820 Chemistry Sodium (137 - 145 mmol/L) 140 Potassium (3.5 - 5.1 mmol/L) 4.7 Chloride (98 - 107 mmol/L) 110 H Carbon Dioxide (22 - 30 mmol/L) 24 Anion Gap (5 - 16) 6 BUN (9 - 20 mg/dL) 22 H Creatinine (0.7 - 1.2 mg/dL) 0.6 L Estimated GFR (>60 ml/min) > 60 Glucose (65 - 99 mg/dL) 136 H Calcium (8.4 - 10.2 mg/dL) 9.2 Phosphorus (2.5 - 4.5 mg/dL) 4.2 Magnesium (1.6 - 2.3 mg/dL) 1.9 Total Bilirubin (0.2 - 1.3 mg/dL) 2.1 H AST (17 - 59 U/L) 69 H ALT (21 - 72 U/L) 51 Albumin (3.5 - 5.0 g/dL) 2.3 L Hematology CBC w Diff NO MAN DIFF REQ NO MAN DIFF REQ WBC (4.8 - 10.8 /CUMM) 11.0 H 10.5 RBC (4.70 - 6.10 /CUMM) 3.26 L 3.10 L Hgb (14.0 - 18.0 G/DL) 10.2 L 9.6 L Hct (42 - 52 %) 30.6 L 29.1 L MCV (80.0 - 94.0 FL) 94.0 93.9 MCH (27.0 - 31.0 PG) 31.4 H 30.8 RDW (11.5 - 14.5 %) 16.7 H 16.8 H Plt Count (130 - 400 /CUMM) 191 143 MPV (7.4 - 10.4 FL) 9.6 10.2 Gran % (42.2 - 75.2 %) 80.0 H 87.1 H Lymphocytes % (20.5 - 51.1 %) 7.8 L 5.8 L Monocytes % (1.7 - 9.3 %) 10.2 H 5.8 Eosinophils % (0 - 5 %) 1.4 1.3 Basophils % (0.0 - 2.0 %) 0.6 0 L Absolute Granulocytes (1.4 - 6.5 /CUMM) 8.8 H 9.1 H Absolute Lymphocytes (1.2 - 3.4 /CUMM) 0.9 L 0.6 L Absolute Monocytes (0.10 - 0.60 /CUMM) 1.1 H 0.6 Absolute Eosinophils (0.0 - 0.7 /CUMM) 0.2 0.1 Absolute Basophils (0.0 - 0.2 /CUMM) 0.1 0 PUBS MCHC (33.0 - 37.0 G/DL) 33.4 32.8 L Assessment/Plan Assessment/Plan Patient is a 50-year-old gentleman who is making no gains on her respirator and is critically ill in the intensive care unit with probable prolonged mechanical ventilation. A tracheostomy will allow for better oral care and for easier weaning once the patient is alert and oriented and appropriate. Risks and benefits of the procedure been explained to the family and they understand and consent to tracheostomy placement. Consult Acknowledgment - Thank you for your consult request.
--- NOTE | 2016-05-06 18:00 | NUR ---
@ 1730-NGT WAS FOUND TO BE COILED AT BACK OF THROAT. SX MARIANA SPARROW NOTIFIED VIA PAGER #[phone]. INSTRUCTED TO REINSERT NGT PER DR CAMPOVERDE. CLARIFIED THAT TUBE DID NOT NEED TO BE REMOVED FULLY & COULD BE PULLED BACK TO THE POINT WHERE THE COIL WAS NO LONGER OBSERVED TO BACK OF THROAT & THEN ADVANCED TO THE PREOP PLACEMENT OF 60CM & UPON COMPLETION SHE WOULD ENTER A STAT CXRAY TO CONFIRM PLACEMENT. @ 1740-NGT WAS PULLED BACK 5CM TO 55CM & COIL WAS NO LONGER SEEN AT BACK OF THROAT THEN TUBE WAS ADVANCED, PT SWALLOWED AT TIME OF ADVANCEMENT INDEPENDENTLY & NGT PASSED WITHOUT DIFFICULTY. NGT REMAINS IN R NARE & WAS READHERED TO NOSE @ 60CM. STAT CXRAY OBTAINED & RESULTS PENDING.
--- NOTE | 2016-05-06 18:34 | RADIOLOGY REPORT ---
EXAMINATION: CHEST 1 VIEW CLINICAL INFORMATION: Enteric tube placement. COMPARISON: Same day chest radiograph. TECHNIQUE: An AP view of the chest is provided. FINDINGS: The cardiac silhouette is not enlarged. T an enteric tube is in place. The tip overlies the left upper quadrant, likely within the stomach. He mediastinal and hilar contours are unremarkable. There are neither pleural effusions nor pneumothoraces. There is a retrocardiac infiltrate present consolidations. The osseous structures are unremarkable. IMPRESSION: Enteric tube in place. Retrocardiac infiltrate.
[2016-05-06 20:00] VITALS: BP 114/50
[2016-05-07] VITALS: BP 138/76
[2016-05-07 04:00] VITALS: BP 110/49
--- NOTE | 2016-05-07 05:45 | PN- General Surgery ---
See Addendum Subjective Subjective: Patient is POD#1 s/p tracheostomy. NAEO. He remains off of pressors. On ventilator with ativan gtt for CIWA protocol. Patient continues to have leak from clint patch site and is draining into CONNIE drain #1. Objective Vital Signs and I&Os Vital Signs Date Time Temp Pulse Resp B/P Pulse O2 O2 Flow FiO2 Ox Delivery Rate 05/07 0400 76 26 110/49 05/07 0400 98 Ventilator 35% 05/07 0317 35 05/07 0021 35 05/07 0000 99.7 94 26 138/76 05/07 0000 99.7 94 26 138/76 97 Ventilator 35% 05/07 0000 95 Ventilator 35% / 2227 35 05/06 2000 99.4 94 26 114/50 05/06 2000 95 Ventilator 35% 05/06 1915 35 05/06 1620 50 / 1600 98.8 72 26 110/70 / 1600 98.8 72 26 110/70 99 Ventilator 50% 05/06 1600 99 Ventilator 50% 05/06 1352 50 05/06 1253 40 05/06 0811 40 05/06 0800 98.0 88 28 142/70 / 0800 98.0 88 28 142/70 97 Ventilator 40% 05/06 0800 97 Ventilator 40% 05/06 0619 40 Intake & Output 05/07 0800 05/07 0000 / 1600 05/06 0800 05/06 0000 05/05 1600 Intake Total 1596.0 2116.0 1367.0 1996.0 1605.0 Output Total 1960 2199 2009 1919 2605 Balance -364.0 -84.0 -643.0 76.0 -1000.0 Intake, Blood 141 179 Product Intake, IV 691 1086 631 775 595 Intake, Lipid 130.0 144.0 105.0 158.0 119.0 Intake, Other 20 Intake, 775 866 631 922 712 TPN/PPN Number 1 2 Bowel Movements Output, 1150 1600 1175 1425 1500 Drainage Output, 100 100 100 Gastric Drainage Output, Other 475 Output, Stool 200 0 250 Output, Urine 510 500 485 495 630 Patient 308 lb 315 lb Weight Physical Exam: Gen: On ventilator Neck: Trachoestomy in place with small amount of blood spotting on gauze. Chest: Good air movement on ventilator. RRR. Abd: Soft, distended. CONNIE drains in place with ascitic drainage. CONNIE drain #1 with darker cloudy fluid, #2 & #3 with serous drainage. CONNIE dressing sites with ascitic drainage. Ext: BLE warm. No calve swelling. Current Medications: Current Medications Sig/Roberto Start time Last Medication Dose Route Stop Time Status Admin Acetaminophen 1,000 MG .STK-MED ONE 05/06 1038 DC IV 05/06 1039 Acetylcysteine 2 ML BID 04/30 2200 DC 05/05 INH 2105 Albuterol Sulfate 3 ML EVERY 4 HRS/AWAKE 05/01 2000 AC 05/06 INH 2101 Fat Emulsion 400 ML 1900 05/06 1900 AC 05/06 Intravenous IV 05/07 1859 2112 Fat Emulsion 400 ML 1900 05/05 1900 DC 05/05 Intravenous IV 05/06 1859 2041 Fentanyl Citrate 250 MCG .STK-MED ONE 05/06 1037 DC IM 05/06 1038 Glycopyrrolate 200 MCG ONE ONE 05/06 1345 DC 05/06 IV 05/06 1346 1428 Heparin Sodium 5,000 UNIT Q8 04/24 1400 AC 05/06 (Porcine) SC 2111 Hydromorphone HCl 2 MG Q4-PRN PRN 05/04 1745 AC 05/06 IV 2115 Lactulose 1 BOT TID 05/05 1712 AC 05/06 DE 2111 Lorazepam 2 MG Q1 PRN 05/06 1900 AC 05/06 IV 2115 Lorazepam 100 MG Q24H 05/01 0400 AC 05/06 Dextrose/Water 1,000 ML IV 2349 Lorazepam 2 MG Q1 PRN 04/29 1615 DC 05/06 IV 0945 Magnesium Sulfate 1 GM ONCE ONE 05/06 0745 DC 05/06 Dextrose/Water 100 ML IV 05/06 1144 0918 Meropenem 1 GM IQ8 05/03 1000 AC 05/06 IV 2349 Nystatin 1 LESLIE BID 05/04 2200 AC 05/06 TOP 2111 Nystatin 1 LESLIE Q6 05/03 1906 AC 05/06 TOP 1704 Ondansetron HCl 8 MG .STK-MED ONE 05/06 1038 DC IM 05/06 1039 Ondansetron HCl 4 MG Q8P PRN 04/22 0600 AC IV Pantoprazole Sodium 40 MG BID 04/22 2200 AC 05/06 IV 211 Sodium Chloride 1,000 ML .Q20H 05/05 0930 AC 05/06 IV 0918 Total Parenteral 1 UNIT 05/06 AC 05/06 Nutrition IV 05/07 Total Parenteral 1 UNIT 05/05 DC 05/05 Nutrition IV 05/06 Results Last 48 Hours of Labs: Laboratory Tests 05/07 05/06 05/06 05/06 0500 1410 1350 1045 Blood Gas pH (7.35 - 7.45 PH) 7.41 pCO2 (35 - 45 TORR) 32 L pO2 (80 - 100 TORR) 78 L HCO3 (21 - 28 MEQ/L) 20 L ABG O2 Sat (Measured) (>96.0 %) 94.0 L Carboxyhemoglobin (1.5 - 5.0 %) 0.5 L O2 Concentration % 50 Respiration Rate (BPM) 26 O2 Delivery Method ESPRIT Vent Mode VC-AV Expiratory Pressure (CMH2O/P) 5 Tidal Volume (CC) 550 Chemistry Sodium Pending Potassium Pending Chloride Pending Carbon Dioxide Pending Anion Gap Pending BUN Pending Creatinine Pending Glucose Pending Calcium Pending Phosphorus Pending Magnesium Pending Total Bilirubin Pending AST Pending ALT Pending Ammonia (9 - 30 umol/L) 25 Albumin Pending Prealbumin (17.6 - 36.0 mg/dL) 5.3 L Coagulation PT (9.4 - 12.5 SEC) 16.5 H INR (0.90 - 1.17) 1.58 H APTT (25 - 37 SEC) 38 H Hematology CBC w Diff Pending WBC Pending RBC Pending Hgb Pending Hct Pending MCV Pending MCH Pending RDW Pending Plt Count Pending MPV Pending PUBS MCHC Pending Miscellaneous Phlebotomy Draw Site LEFT RADIAL 05/06 05/06 0605 0440 Blood Gas pH (7.35 - 7.45 PH) 7.41 pCO2 (35 - 45 TORR) 30 L pO2 (80 - 100 TORR) 86 HCO3 (21 - 28 MEQ/L) 19 L ABG O2 Sat (Measured) (>96.0 %) 96.0 P-50 (Temp Corrected) N Carboxyhemoglobin (1.5 - 5.0 %) 0.1 L O2 Concentration % .40 Respiration Rate (BPM) 26 O2 Delivery Method VENT Vent Mode A/C Expiratory Pressure (CMH2O/P) 5 Tidal Volume (CC) 550 Chemistry Sodium (137 - 145 mmol/L) 140 Potassium (3.5 - 5.1 mmol/L) 4.7 Chloride (98 - 107 mmol/L) 110 H Carbon Dioxide (22 - 30 mmol/L) 24 Anion Gap (5 - 16) 6 BUN (9 - 20 mg/dL) 22 H Creatinine (0.7 - 1.2 mg/dL) 0.6 L Estimated GFR (>60 ml/min) > 60 Glucose (65 - 99 mg/dL) 136 H Calcium (8.4 - 10.2 mg/dL) 9.2 Phosphorus (2.5 - 4.5 mg/dL) 4.2 Magnesium (1.6 - 2.3 mg/dL) 1.9 Total Bilirubin (0.2 - 1.3 mg/dL) 2.1 H AST (17 - 59 U/L) 69 H ALT (21 - 72 U/L) 51 Albumin (3.5 - 5.0 g/dL) 2.3 L Hematology CBC w Diff NO MAN DIFF REQ WBC (4.8 - 10.8 /CUMM) 11.0 H RBC (4.70 - 6.10 /CUMM) 3.26 L Hgb (14.0 - 18.0 G/DL) 10.2 L Hct (42 - 52 %) 30.6 L MCV (80.0 - 94.0 FL) 94.0 MCH (27.0 - 31.0 PG) 31.4 H RDW (11.5 - 14.5 %) 16.7 H Plt Count (130 - 400 /CUMM) 191 MPV (7.4 - 10.4 FL) 9.6 Gran % (42.2 - 75.2 %) 80.0 H Lymphocytes % (20.5 - 51.1 %) 7.8 L Monocytes % (1.7 - 9.3 %) 10.2 H Eosinophils % (0 - 5 %) 1.4 Basophils % (0.0 - 2.0 %) 0.6 Absolute Granulocytes (1.4 - 6.5 /CUMM) 8.8 H Absolute Lymphocytes (1.2 - 3.4 /CUMM) 0.9 L Absolute Monocytes (0.10 - 0.60 /CUMM) 1.1 H Absolute Eosinophils (0.0 - 0.7 /CUMM) 0.2 Absolute Basophils (0.0 - 0.2 /CUMM) 0.1 PUBS MCHC (33.0 - 37.0 G/DL) 33.4 Miscellaneous Phlebotomy Draw Site LEFT RADIAL 05/05 1820 Hematology CBC w Diff NO MAN DIFF REQ WBC (4.8 - 10.8 /CUMM) 10.5 RBC (4.70 - 6.10 /CUMM) 3.10 L Hgb (14.0 - 18.0 G/DL) 9.6 L Hct (42 - 52 %) 29.1 L MCV (80.0 - 94.0 FL) 93.9 MCH (27.0 - 31.0 PG) 30.8 RDW (11.5 - 14.5 %) 16.8 H Plt Count (130 - 400 /CUMM) 143 MPV (7.4 - 10.4 FL) 10.2 Gran % (42.2 - 75.2 %) 87.1 H Lymphocytes % (20.5 - 51.1 %) 5.8 L Monocytes % (1.7 - 9.3 %) 5.8 Eosinophils % (0 - 5 %) 1.3 Basophils % (0.0 - 2.0 %) 0 L Absolute Granulocytes (1.4 - 6.5 /CUMM) 9.1 H Absolute Lymphocytes (1.2 - 3.4 /CUMM) 0.6 L Absolute Monocytes (0.10 - 0.60 /CUMM) 0.6 Absolute Eosinophils (0.0 - 0.7 /CUMM) 0.1 Absolute Basophils (0.0 - 0.2 /CUMM) 0 PUBS MCHC (33.0 - 37.0 G/DL) 32.8 L Recent Imaging Studies: EXAM TYPE: RAD - XRY-PORTABLE CHEST XRAY EXAMINATION: CHEST 1 VIEW CLINICAL INFORMATION: Enteric tube placement. COMPARISON: Same day chest radiograph. TECHNIQUE: An AP view of the chest is provided. FINDINGS: The cardiac silhouette is not enlarged. T an enteric tube is in place. The tip overlies the left upper quadrant, likely within the stomach. He mediastinal and hilar contours are unremarkable. There are neither pleural effusions nor pneumothoraces. There is a retrocardiac infiltrate present consolidations. The osseous structures are unremarkable. IMPRESSION: Enteric tube in place. Retrocardiac infiltrate. Assessment/Plan Assessment/Plan 50yo male s/p POD#1 s/p tracheostomy. S/P laparoscopic Clint patch repair of perforated duodenal ulcer on 04/22. +leak. -Follow-up morning laboratory studies -Continue TPN -Nothing by mouth and NG tube decompression -GI and DVT prophylaxis -continue CONNIE drains -f/u ID recs -will d/w attending
[2016-05-07 05:46] LABS: ABSOLUTE BASOPHIL COUNT 0 /CUMM (0.0-0.2); ABSOLUTE EOSINOPHIL COUNT 0.1 /CUMM (0.0-0.7); ABSOLUTE GRANULOCYTE CT 8.7 /CUMM (1.4-6.5); ABSOLUTE LYMPH COUNT 0.9 /CUMM (1.2-3.4); ABSOLUTE MONOCYTE COUNT 0.8 /CUMM (0.10-0.60); BASOPHIL % 0.4 % (0.0-2.0); GRANULOCYTE % 82.8 % (42.2-75.2); HEMATOCRIT 29.8 % (42-52); MEAN CORPUSCULAR HGB 30.8 PG (27.0-31.0); MEAN CORPUSCULAR HGB CONC 32.9 G/DL (33.0-37.0); MEAN CORPUSCULAR VOLUME 93.5 FL (80.0-94.0); MEAN PLATELET VOLUME 9.8 FL (7.4-10.4); PLATELET COUNT 190 /CUMM (130-400); RBC DISTRIBUTION WIDTH 16.5 % (11.5-14.5); RED BLOOD CELL CT 3.19 /CUMM (4.70-6.10); WHITE BLOOD CELL COUNT 10.5 /CUMM (4.8-10.8)
--- NOTE | 2016-05-07 07:06 | PN- Resident CRCU ---
Subjective HPI/CRCU Issues: Patient is a 50 y/o Male, with a significant past medical history of hypertension, hyperlipidemia, GERD, diverticulosis, degenerative joint disease, avascular necrosis status post hip replacement, fatty liver disease, alcohol abuse presented with chronic alcohol abuse, nausea, vomting, abd distension and pain which got worse so he presented to ED on 04/21/2016. On Evaluation CT scan showed pneumoperitoneum, moderate ascites.On examination the abdomen was distended and tender to palpation , so diagnostic paracentesis was done which showed WBC 9504, RBC 2156. Because of the perforation, It seems that patient developed the secondary bacterial peritonitis. We took surgical consultation. The next couple of hours patient went into septicemia and shock. So he was given IV fluids and prophylactic antibiotics including ceftriaxone metronidazole and vancomycin. We catheterized the patient. Despite of these measures his blood pressure going down , so we took surgical consultation and plan for emergent surgery. Meantime, we intubated the patient and put him on mechanical ventilation(assist control mode, TV-500, respiratory rate 28, PEEP 5, FiO2 100%), triple-lumen catheter was placed in the right side of jugular vein. Patients blood pressure was continuosly going down, so we started him on Levothroid/vasopressin. We also started him on fentanyl and propofol drip. The culture of the ascites fluid came back positive for gram-negative. We took the consult from infectious disease specialist/Abdullahi Osuna MD. He advised to change ceftriaxone to ceftazidime and advised to wait for sensitivities report. Patient went to surgery on 04/22/2016. In postop, His blood pressure was 119/62. He is improving after surgery. When blood pressure was maintained to normal, we stopped all the pressures and also slowly stopped sedation. We tried weaning multiple times but he failed.It was difficult to wean the patient's so it was decided to do a tracheostomy on 05/06/2016 and keep the patient on ventilator. In between the patient started having fever of 100.2, awaited. CT scan of chest/ abdomen/pelvis on 04/29/2016 which showed moderate right-sided pleural effusion and consolidation and collapse of right lower lobe. On 05/02/2016. Patient was diagnosed as having continuous leak from his perforated ulcer, which was confirmed by the methylene Blue, which came out of JP1 drain. According to surgery. There is no any active intervention was required. So patient was treated conservatively. CRCU issues - Tracheostomy (05/06/2016) Perforated duodenal ulcer s/p exploratory laparoscopy with grahm plication of duodenal ulcer Secondary bacterial Peritonitis Septic shock with MODS/ MATT improving/ Lactic acidosis improving/ Alcoholic hepatitis with transaminitis Ascitis Sigmoid Diverticulitis Hypertension Hyperlipidemia Morbidly Obese 24 Hour Events: Overnight it was uneventful. Objective Vital Signs & I&O Last 8 Hrs of Vitals and I&O: Intake & Output 05/08 1600 Intake Total 1494 Output Total 2019 Balance -526 Intake, IV 1494 Output, 1300 Drainage Output, Other 300 Output, Urine 420 Exam General Appearance: well developed/nourished, intubated, mild distress, obese, on trachestomy Head: atraumatic, normal appearance Ears, Nose, Throat: normal pharynx, normal ENT inspection Neck: normal inspection, supple Respiratory: chest non-tender, quiet respiration, crackles, decrese air entry on right side Cardiovascular: regular rate/rhythm, edema Gastrointestinal: soft, distention, tenderness Extremities: pedal edema Weaning Parameters NIF: 17 Minute Volume: 5.09 Resp rate: 26 Vt: 150 Heart Rate: 84 Weaning Schedule Start Time: 1105 Minute Volume: 10.3 Resp Rate: 18 Vt: 621 Heart Rate: 83 End Time: 1107 Minute Volume: 0 Resp Rate: 0 Vt: 0 Heart Rate: 83 Current Medications: Current Medications Sig/Roberto Start time Last Medication Dose Route Stop Time Status Admin Albuterol Sulfate 3 ML EVERY 4 HRS/AWAKE 05/01 2000 AC 05/08 INH 1629 Fat Emulsion 400 ML 1900 05/08 190 AC Intravenous IV 05/09 1859 Fat Emulsion 400 ML 1900 05/07 1900 AC 05/07 Intravenous IV 05/08 185 195 Fat Emulsion 400 ML 1900 05/06 190 DC 05/06 Intravenous IV 05/07 185 211 Heparin Sodium 5,000 UNIT Q8 04/24 1400 AC 05/08 (Porcine) SC 1345 Hydromorphone HCl 2 MG Q4-PRN PRN 05/04 1745 AC 05/08 IV 1332 Insulin Aspart 0 Q8 05/08 1400 AC 05/08 SC 1406 Lactulose 1 BOT TID 05/05 1712 AC 05/08 NC 1007 Lorazepam 2 MG Q1 PRN 05/06 1900 AC 05/08 IV 1427 Lorazepam 100 MG Q24H 05/01 0400 DC 12/ Dextrose/Water 1,000 ML IV 0504 Meropenem 1 GM IQ8 05/03 1000 AC 05/08 IV 0836 Nystatin 1 LESLIE BID 05/04 2200 AC 05/08 TOP 1008 Nystatin 1 LESLIE Q6 05/03 1906 AC 05/07 TOP 1751 Ondansetron HCl 4 MG Q8P PRN 04/22 0600 AC IV Pantoprazole Sodium 40 MG BID 04/22 2200 AC 05/08 IV 0836 Sodium Chloride 1,000 ML Q20H 05/08 1245 AC 05/08 IV 1403 Sodium Chloride 1,000 ML .Q20H 05/05 0930 DC 05/07 IV 0636 Total Parenteral 1 UNIT 1900 05/08 1900 AC Nutrition IV 05/09 1859 Total Parenteral 1 UNIT 1900 05/07 1900 AC 05/07 Nutrition IV 05/08 1859 1951 Total Parenteral 1 UNIT 1900 05/06 1900 DC 05/06 Nutrition IV 05/07 1859 2112 Impression/Plan Impression/Problem List Impression: Impression and Plan - Patient is on low-dose Ativan drip. Patient is leaking from the operated side, surgeons are already awair, but it is making prognosis at poor side. He had tracheastomy on 05/06/2016. POD-15 Ventilator -D15 right sided PICC line - D9, CONNIE drains-3 - D15 Foleys cathter -D15 ABG - pH-7.41, PCO2 32, PO2 78, bicarbonate 20 Respiratory * According to Dr. Arroyo, We'll keep the CVP of 12 and BP > [address] Balderas says keep SAS 3-4. * He is on ventilator, Ventilator Settings is -AC, TV-550, IPAP -24, RR-24, PEEP -5, Fio2 40. * There is decreased air entry on the right middle and lower lobe * 05/01/2016 Patient was having right sided pleural effusion. On ultrasound it was found,it is very mild and the radiologist says that there is more chances of pneumothorax, even If they try even for diagnostic purposes.So it was decided not to do a thoracocentesis * we will try for weaning when patient become more alert. * Patient had trachestomy on 05/06/2016 as pt is not weanable Neurology * Although patient is awake but responding to commands.We were suspecting Wernicke's encephalopathy. So we gave high dose thiamine for total 9 days( 05/02) * We did CT head which doent showed any intracranial pathology. * We also checked for serum ammonia which come back to 45 (04/29/2016),25 (05/06) * We will continue ativan drip, as patient get very agitated off Ativan. * We placed the neurology consult to get their opinion regarding encephalopathy, but patient is on ativan drip so they are not able to evaluate it. They will follow up as patient become more alert and oriented. Infectious * Ascitic fluids was growing -enterobacter cloacae and alpha strept. * We will follow ID rcms * Discussed with Dr Osuna, patient doesnt need antibiotics. We stopped Meopenem 1g iv 8hrly, as there is no focus and patient already had 7 days course of antibiotics on 04/30/2016. * Inj meropenem 1g Q8 was restarted on 05/03/2016. * on 04/22/2016 To rule out the source of infection. We orderd CT chest/abdomen/ pelvis, which showed moderate right-sided pleural effusion with right lower lobe consolidation and collapse. * CT scan on 05/04/2016 reported persistent moderate right pleural effusion and small left pleural effusion. Persistent collapse/consolidation of right lower lobe and, to a lesser degree, left lower lobe. Subsegmental atelectasis within the superior lingula has increased. Hepatosplenomegaly. Persistent small volume of ascitic fluid in the abdomen and pelvis, and edema of the mesentery. There are no newly developing fluid collections. The drainage catheters are in stable position compared to 04/29/2016. * urine culture doesnt showed any bacterial growth. * Also we will monitor for possible fungemia but will hold off on anti-fungals for now. Hematology - * Hb-10.2. * We will suplement MultiVit, Thiamine, folic acid. Cardiology * Patient is hemodynamically stable * According to Dr Villatoro his recent troponins are negative so we will observe , if again have NSVT in future than we will revaluate. Gastroenterology * There are 3 CONNIE drains , there was greenish fluid in the CONNIE-1 drain after methylene blue injection. ? Opertaed site is leaking, but we will go for condervative management. * According to the surgeons, TPN, weaning trial,Nothing by mouth and NG tube decompression, GI prophylaxis, monitoring CONNIE output. * Abdoman is soft, there are mild bowel sounds on examiantion * We will do strict Intake output Charting * We will follow GI rcms * We stopped albumin on 04/29/2016. * We started giving lactulose from NG tube but residual was >100cc.So we stopped it and started him on lactulose enemas Q6 PRN,but he had bleeding. * We placed consult for Dr Hernandez to give opinion for further management. Urology * BUN -22 Cr-0.6 * We'll monitor it regularly * We will continue IV fluids changed to 1/2 NS and 50ml/hr * Strict I/O charting Endocrine * TSH -8.9, T4 -1.85 * It seems patient is having Sick Euthyroid syndrome. * We discussed with endocrinology. * We will repeat TFT after patient get recovered. Skin * There are multiple dressings on the skin, abdomen for drain, * PICC line is on the right-hand Alimentry * Mg is 1.9, we will supplement 1gm IV today and also increase in TPN. Diet -continue TPN as advised by dietitian. DVT prophylaxis -ALPS/ Heparin CODE STATUS-full code Problem List: 1. Pleural effusion 2. At risk for ventilator-associated event 3. Perforation bowel 4. Peritonitis 5. Alcoholic hepatitis 6. Hypomagnesemia Pain Ratin Tomorrow's Labs & Rationales: cbc,icu bundle Plan DVT/Prophylaxis: mechanical
[2016-05-07 08:00] VITALS: BP 130/70
--- NOTE | 2016-05-07 08:24 | PN- CRCU ---
Subjective HPI/Critical Care Issues: The patient remains intubated and intermittently agitated. Overnight, the patient's Ativan was increased to 3 mg per hour as a results of significant agitation. He is now trached and tolerating this well. His oxygenation remains in high 90s on 35% oxygen. His MAXIMUM TEMPERATURE was 99.7. His white blood cell count is now 10.5. He has ongoing significant drainage out of his CONNIE drains. He remains on TPN for nutritional support. Objective Current Medications: Current Medications Sig/Roberto Start time Last Medication Dose Route Stop Time Status Admin Acetaminophen 1,000 MG .STK-MED ONE 05/06 1038 DC IV 05/06 1039 Acetylcysteine 2 ML BID 04/30 2200 DC 05/05 INH 2105 Albuterol Sulfate 3 ML EVERY 4 HRS/AWAKE 05/01 2000 AC 05/06 INH 2101 Fat Emulsion 400 ML 1900 05/06 1900 AC 05/06 Intravenous IV 05/07 1859 2112 Fat Emulsion 400 ML 1900 05/05 1900 DC 05/05 Intravenous IV 05/06 1859 2041 Fentanyl Citrate 250 MCG .STK-MED ONE 05/06 1037 DC IM 05/06 1038 Glycopyrrolate 200 MCG ONE ONE 05/06 1345 DC 05/06 IV 05/06 1346 1428 Heparin Sodium 5,000 UNIT Q8 04/24 1400 AC 05/07 (Porcine) SC 0530 Hydromorphone HCl 2 MG Q4-PRN PRN 05/04 1745 AC 05/07 IV 0245 Lactulose 1 BOT TID 05/05 1712 AC 05/06 NV 2111 Lorazepam 2 MG Q1 PRN 05/06 1900 05/06 IV 2115 Lorazepam 100 MG Q24H 05/01 0400 AC 05/06 Dextrose/Water 1,000 ML IV 2349 Lorazepam 2 MG Q1 PRN 04/29 1615 DC 05/06 IV 0945 Magnesium Sulfate 1 GM Q2H 05/07 0715 AC Dextrose/Water 100 ML IV 05/07 1114 Magnesium Sulfate 1 GM ONCE ONE 05/06 0745 DC 05/06 Dextrose/Water 100 ML IV 05/06 1144 0918 Meropenem 1 GM IQ8 05/03 1000 AC 05/06 IV 2349 Nystatin 1 LESLIE BID 05/04 2200 AC 05/06 TOP 2111 Nystatin 1 LESLIE Q6 05/03 1906 05/06 TOP 1704 Ondansetron HCl 8 MG .STK-MED ONE 05/06 1038 DC IM 05/06 1039 Ondansetron HCl 4 MG Q8P PRN 04/22 06 IV Pantoprazole Sodium 40 MG BID 04/22 2200 AC 05/06 IV 2111 Sodium Chloride 1,000 ML .Q20H 05/05 0930 AC 05/07 IV 0636 Total Parenteral 1 UNIT 05/06 190 AC 05/06 Nutrition IV 05/07 1852111 Total Parenteral 1 UNIT 05/05 190 DC 05/05 Nutrition IV 05/06 Vital Signs & I&O Last 24 Hrs of Vitals and I&O: Vital Signs Date Time Temp Pulse Resp B/P Pulse O2 O2 Flow FiO2 Ox Delivery Rate 05/07 0400 76 26 110/49 05/07 0400 98 Ventilator 35% 05/07 0317 35 05/07 0021 35 05/07 0000 99.7 94 26 138/76 05/07 0000 99.7 94 26 138/76 97 Ventilator 35% 05/07 0000 95 Ventilator 35% 05/06 2227 35 05/06 2000 99.4 94 26 114/50 05/06 2000 95 Ventilator 35% 05/06 1915 35 05/06 1620 50 05/06 1600 98.8 72 26 110/70 05/06 1600 98.8 72 26 110/70 99 Ventilator 50% 05/06 1600 99 Ventilator 50% 05/06 1352 50 05/06 1253 40 05/06 0811 40 Intake & Output 05/07 1600 05/07 0800 05/07 0000 Intake Total 1440.0 1596.0 Output Total 1525 1960 Balance -85.0 -364.0 Intake, IV 655 691 Intake, Lipid 112.0 130.0 Intake, Oral 0 Intake, 673 775 TPN/PPN Output, 925 1150 Drainage Output, 50 100 Gastric Drainage Output, Stool 100 200 Output, Urine 450 510 Patient 304 lb Weight Exam General Appearance: intubated, intermittently agitated, moving all extremities, opens eyes but still not following commands Head: atraumatic Neck: supple, trach in place Respiratory: no respiratory distress, few ronchi, lungs expand symmetrically, trachea is midline Cardiovascular: regular rate/rhythm, tachycardia, S1 and S2 heard Abdomen: CONNIE drains in place, distended, Extremities: warm and dry Skin: no cyanosis or edema Results Last 24 Hrs of Lab Results: Laboratory Tests 05/07/16 0500: Anion Gap 7, Estimated GFR > 60, Glucose 131 H, Calcium 8.9, Phosphorus 4.1, Magnesium 1.9, Total Bilirubin 2.1 H, AST 61 H, ALT 40, Albumin 2.3 L, CBC w Diff NO MAN DIFF REQ, RBC 3.19 L, MCV 93.5, MCH 30.8, RDW 16.5 H, MPV 9.8, Gran % 82.8 H, Lymphocytes % 8.2 L, Monocytes % 7.6, Eosinophils % 1.0, Basophils % 0.4, Absolute Granulocytes 8.7 H, Absolute Lymphocytes 0.9 L, Absolute Monocytes 0.8 H, Absolute Eosinophils 0.1, Absolute Basophils 0, PUBS MCHC 32.9 L 05/06/16 1410: pH 7.41, pCO2 32 L, pO2 78 L, HCO3 20 L, ABG O2 Sat (Measured) 94.0 L, Carboxyhemoglobin 0.5 L, O2 Concentration % 50, Respiration Rate 26, O2 Delivery Method ESPRIT, Vent Mode VC-AV, Expiratory Pressure 5, Tidal Volume 550 , Phlebotomy Draw Site LEFT RADIAL 05/06/16 1350: Ammonia 25, Prealbumin 5.3 L 05/06/16 1045: PT 16.5 H, INR 1.58 H, APTT 38 H Last 24 Hrs of Micro Results: Repeat cultures negative. Diagnostic Data CXR Findings: Pending. Impression/Plan Impression/Plan Impression/Plan: 1. Status post laparoscopic Clint patch for perforated duodenal ulcer with peritonitis, POD # 16. 2. Ongoing respiratory failure which will require tracheostomy placement. 3. 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 4. Ongoing encephalopathy - hepatic? metabolic? 5. Anemia without active blood loss. 6. Deep tissue injury - right scapula area, improving. 7. Hyperchloremia, improving, likely from TPN. 8. Severe malnutrition. 9. Electrolyte abnormalities. Recommendations: * Begin weaning trials today. * Please check a follow-up ammonia level and prealbumin (ordered). * Continue to wean Ativan down to off is able. * Continue lactulose enemas. * Continue meropenem, follow up ID recommendations. * Continue 1/2 normal saline at 50 ML per hour. * Continue TPN to correct metabolic derangements. * MVI, thiamine, folate to continue in TPN. * Continue ventilator bundle with DVT and GI prophylaxis. * Skin care protocol, off load deep tissue injury area. * Continue all supportive care. * Patient's family again updated at the bedside. * Possible poor prognosis. TTS 56
--- NOTE | 2016-05-07 10:48 | PN- Infect Dx ---
Subjective Subjective: Afebrile. He remains partially sedated. He underwent tracheostomy yesterday. Objective Last 24 Hrs of Vital Signs/I&O Vital Signs Date Time Temp Pulse Resp B/P Pulse O2 O2 Flow FiO2 Ox Delivery Rate 05/07 0813 35 05/07 0400 76 26 110/49 05/07 0400 98 Ventilator 35% 05/07 0317 35 05/07 0021 35 05/07 0000 99.7 94 26 138/76 05/07 0000 99.7 94 26 138/76 97 Ventilator 35% 05/07 0000 95 Ventilator 35% 05/06 2227 35 05/06 2000 99.4 94 26 114/50 05/06 2000 95 Ventilator 35% 05/06 1915 35 05/06 1620 50 05/06 1600 98.8 72 26 110/70 05/06 1600 98.8 72 26 110/70 99 Ventilator 50% 05/06 1600 99 Ventilator 50% 05/06 1352 50 05/06 1253 40 Intake & Output 05/07 1600 05/07 0800 05/07 0000 Intake Total 1440.0 1596.0 Output Total 1525 1960 Balance -85.0 -364.0 Intake, IV 655 691 Intake, Lipid 112.0 130.0 Intake, Oral 0 Intake, 673 775 TPN/PPN Output, 925 1150 Drainage Output, 50 100 Gastric Drainage Output, Stool 100 200 Output, Urine 450 510 Patient 304 lb Weight Physical Exam Other Physical Findings: He is arousable to pain but not voice Neck status post tracheostomy Lungs bilateral rhonchi Heart regular rhythm with no murmur Abdomen is distended, nontender with positive bowel sounds; 3 CONNIE drains remain in place, with turbid fluid from drain #1 Extremities no cyanosis, clubbing or edema,; PICC in the right upper extremity with no inflammation at the site Ann catheter remains in place Results Last 24 Hours of Lab Results: Laboratory Tests 05/07 05/06 05/06 0500 1410 1350 Blood Gas pH (7.35 - 7.45 PH) 7.41 pCO2 (35 - 45 TORR) 32 L pO2 (80 - 100 TORR) 78 L HCO3 (21 - 28 MEQ/L) 20 L ABG O2 Sat (Measured) (>96.0 %) 94.0 L Carboxyhemoglobin (1.5 - 5.0 %) 0.5 L O2 Concentration % 50 Respiration Rate (BPM) 26 O2 Delivery Method ESPRIT Vent Mode VC-AV Expiratory Pressure (CMH2O/P) 5 Tidal Volume (CC) 550 Chemistry Sodium (137 - 145 mmol/L) 138 Potassium (3.5 - 5.1 mmol/L) 4.5 Chloride (98 - 107 mmol/L) 108 H Carbon Dioxide (22 - 30 mmol/L) 24 Anion Gap (5 - 16) 7 BUN (9 - 20 mg/dL) 22 H Creatinine (0.7 - 1.2 mg/dL) 0.6 L Estimated GFR (>60 ml/min) > 60 Glucose (65 - 99 mg/dL) 131 H Calcium (8.4 - 10.2 mg/dL) 8.9 Phosphorus (2.5 - 4.5 mg/dL) 4.1 Magnesium (1.6 - 2.3 mg/dL) 1.9 Total Bilirubin (0.2 - 1.3 mg/dL) 2.1 H AST (17 - 59 U/L) 61 H ALT (21 - 72 U/L) 40 Ammonia (9 - 30 umol/L) 25 Albumin (3.5 - 5.0 g/dL) 2.3 L Prealbumin (17.6 - 36.0 mg/dL) 5.3 L Hematology CBC w Diff NO MAN DIFF REQ WBC (4.8 - 10.8 /CUMM) 10.5 RBC (4.70 - 6.10 /CUMM) 3.19 L Hgb (14.0 - 18.0 G/DL) 9.8 L Hct (42 - 52 %) 29.8 L MCV (80.0 - 94.0 FL) 93.5 MCH (27.0 - 31.0 PG) 30.8 RDW (11.5 - 14.5 %) 16.5 H Plt Count (130 - 400 /CUMM) 190 MPV (7.4 - 10.4 FL) 9.8 Gran % (42.2 - 75.2 %) 82.8 H Lymphocytes % (20.5 - 51.1 %) 8.2 L Monocytes % (1.7 - 9.3 %) 7.6 Eosinophils % (0 - 5 %) 1.0 Basophils % (0.0 - 2.0 %) 0.4 Absolute Granulocytes (1.4 - 6.5 /CUMM) 8.7 H Absolute Lymphocytes (1.2 - 3.4 /CUMM) 0.9 L Absolute Monocytes (0.10 - 0.60 /CUMM) 0.8 H Absolute Eosinophils (0.0 - 0.7 /CUMM) 0.1 Absolute Basophils (0.0 - 0.2 /CUMM) 0 PUBS MCHC (33.0 - 37.0 G/DL) 32.9 L Miscellaneous Phlebotomy Draw Site LEFT RADIAL 05/06 1045 Coagulation PT (9.4 - 12.5 SEC) 16.5 H INR (0.90 - 1.17) 1.58 H APTT (25 - 37 SEC) 38 H Last 24 Hours of Garcia Results: No recent cultures Assessment/Plan Impression: Stable with temperatures and white blood cell count now normal on Meropenem, restarted 4 days ago in the setting of a presumed leak from his perforated ulcer now 15 days status post laparoscopic Clint plication, with the recent CT scan negative for any collections. His respiratory status has improved slightly with a decrease in his FiO2, and with weaning trials planned. Suggestion: 1. Further evaluation/management of the presumed duodenal leak per Surgery 2. Continue Meropenem
[2016-05-07 16:00] VITALS: BP 151/80
[2016-05-07 20:00] VITALS: BP 122/88
[2016-05-07 22:00] VITALS: BP 124/62
[2016-05-08] VITALS: BP 130/84
[2016-05-08 00:30] VITALS: BP 130/84
[2016-05-08 04:00] VITALS: BP 149/62
[2016-05-08 05:03] LABS: ABSOLUTE BASOPHIL COUNT 0.1 /CUMM (0.0-0.2); ABSOLUTE EOSINOPHIL COUNT 0.2 /CUMM (0.0-0.7); ABSOLUTE GRANULOCYTE CT 7.6 /CUMM (1.4-6.5); ABSOLUTE LYMPH COUNT 1.2 /CUMM (1.2-3.4); ABSOLUTE MONOCYTE COUNT 0.9 /CUMM (0.10-0.60); BASOPHIL % 0.9 % (0.0-2.0); EOSINOPHIL % 1.8 % (0-5); GRANULOCYTE % 76.8 % (42.2-75.2); HEMATOCRIT 28.9 % (42-52); MEAN CORPUSCULAR HGB 32.8 PG (27.0-31.0); MEAN CORPUSCULAR HGB CONC 34.7 G/DL (33.0-37.0); MEAN CORPUSCULAR VOLUME 94.5 FL (80.0-94.0); PLATELET COUNT 182 /CUMM (130-400); RBC DISTRIBUTION WIDTH 15.9 % (11.5-14.5); RED BLOOD CELL CT 3.06 /CUMM (4.70-6.10); WHITE BLOOD CELL COUNT 9.9 /CUMM (4.8-10.8)
--- NOTE | 2016-05-08 05:54 | PN- General Surgery ---
Subjective Subjective: Patient is POD#2 s/p tracheostomy. NAEO. He remains off of pressors. On ventilator with ativan gtt for CIWA protocol. Patient continues to have leak from em patch site and is draining into CONNIE drain #1. Objective Vital Signs and I&Os Vital Signs Date Time Temp Pulse Resp B/P Pulse O2 O2 Flow FiO2 Ox Delivery Rate 05/08 0400 98.6 92 27 149/62 / 0400 96 Ventilator 35% 05/08 0356 35 / 0030 99.2 90 26 130/84 95 Ventilator 35% / 0025 35 /15 0000 99.2 90 26 130/84 / 0000 95 Ventilator 35% 05/07 2214 35 / 2200 97.0 94 26 124/62 05/07 2000 97.4 77 26 122/88 05/07 2000 95 Ventilator 35% 05/07 1937 35 /14 1606 35 / 1600 98 Ventilator 35% 05/07 1600 98.8 88 26 151/80 98 Ventilator 35% 05/07 1340 35 / 1200 97 Ventilator 35% / 1125 35 /14 0813 35 /14 0800 98.5 100 26 130/70 98 Ventilator 35% 05/07 0800 98 Ventilator 35% Intake & Output 05/08 0800 / 0000 /14 1600 /14 0800 05/07 0000 13 1600 Intake Total 1333.6 1694 1440.0 1596.0 2116.0 Output Total 1750 1350 1525 1960 2200 Balance -416.4 344 -85.0 -364.0 -84.0 Intake, IV 400 1694 141 424 5806 Intake, Lipid 133.6 112.0 130.0 144.0 Intake, Oral 0 0 Intake, Other 20 Intake, 800 673 775 866 TPN/PPN Number 200 Bowel Movements Output, 1200 738 411 1711 1600 Drainage Output, 50 50 100 100 Gastric Drainage Output, Other 250 Output, Stool 100 100 200 0 Output, Urine 400 500 450 510 500 Patient 304 lb Weight Current Medications: Current Medications Sig/Roberto Start time Last Medication Dose Route Stop Time Status Admin Albuterol Sulfate 3 ML EVERY 4 HRS/AWAKE 05/01 2000 AC 05/07 INH 1930 Fat Emulsion 400 ML 1900 12/14 1900 AC 05/07 Intravenous IV 05/08 1851951 Fat Emulsion 400 ML 1900 05/06 190 DC 05/06 Intravenous IV 05/07 1859 211 Heparin Sodium 5,000 UNIT Q8 04/24 1400 AC 05/07 (Porcine) SC 2130 Hydromorphone HCl 2 MG Q4-PRN PRN 05/04 1745 AC 05/08 IV 0503 Lactulose 1 BOT TID 05/05 1712 AC 05/07 NM 2130 Lorazepam 2 MG Q1 PRN 05/06 1900 05/07 IV 1638 Lorazepam 100 MG Q24H 05/01 0400 DC 05/08 Dextrose/Water 1,000 ML IV 0504 Magnesium Sulfate 1 GM Q2H 05/07 0715 TN 05/07 Dextrose/Water 100 ML IV 05/07 1114 1302 Meropenem 1 GM IQ8 05/03 1000 05/08 IV 0009 Nystatin 1 LESLIE BID 05/04 2200 05/07 TOP 2130 Nystatin 1 LESLIE Q6 05/03 1906 05/07 TOP 1751 Ondansetron HCl 4 MG Q8P PRN 04/22 0600 AC IV Pantoprazole Sodium 40 MG BID 04/22 2200 05/07 IV 2130 Sodium Chloride 1,000 ML .Q20H 05/05 0930 05/07 IV 0636 Total Parenteral 1 UNIT 1900 05/07 190 AC 05/07 Nutrition IV 05/08 Total Parenteral 1 UNIT 1900 05/06 190 DC 05/06 Nutrition IV 05/07 Results Last 48 Hours of Labs: Laboratory Tests 05/08 05/07 0434 0500 Chemistry Sodium (137 - 145 mmol/L) 129 L 138 Potassium (3.5 - 5.1 mmol/L) 4.5 4.5 Chloride (98 - 107 mmol/L) 101 108 H Carbon Dioxide (22 - 30 mmol/L) 22 24 Anion Gap (5 - 16) 7 7 BUN (9 - 20 mg/dL) 20 22 H Creatinine (0.7 - 1.2 mg/dL) 0.7 0.6 L Estimated GFR (>60 ml/min) > 60 > 60 Glucose (65 - 99 mg/dL) 540 *H 131 H Calcium (8.4 - 10.2 mg/dL) 8.7 8.9 Phosphorus (2.5 - 4.5 mg/dL) 3.8 4.1 Magnesium (1.6 - 2.3 mg/dL) 2.3 1.9 Total Bilirubin (0.2 - 1.3 mg/dL) 2.2 H 2.1 H AST (17 - 59 U/L) 64 H 61 H ALT (21 - 72 U/L) 41 40 Albumin (3.5 - 5.0 g/dL) 2.1 L 2.3 L Hematology CBC w Diff NO MAN DIFF REQ NO MAN DIFF REQ WBC (4.8 - 10.8 /CUMM) 9.9 10.5 RBC (4.70 - 6.10 /CUMM) 3.06 L 3.19 L Hgb (14.0 - 18.0 G/DL) 10.0 L 9.8 L Hct (42 - 52 %) 28.9 L 29.8 L MCV (80.0 - 94.0 FL) 94.5 H 93.5 MCH (27.0 - 31.0 PG) 32.8 H 30.8 RDW (11.5 - 14.5 %) 15.9 H 16.5 H Plt Count (130 - 400 /CUMM) 182 190 MPV (7.4 - 10.4 FL) 10.0 9.8 Gran % (42.2 - 75.2 %) 76.8 H 82.8 H Lymphocytes % (20.5 - 51.1 %) 11.7 L 8.2 L Monocytes % (1.7 - 9.3 %) 8.8 7.6 Eosinophils % (0 - 5 %) 1.8 1.0 Basophils % (0.0 - 2.0 %) 0.9 0.4 Absolute Granulocytes (1.4 - 6.5 /CUMM) 7.6 H 8.7 H Absolute Lymphocytes (1.2 - 3.4 /CUMM) 1.2 0.9 L Absolute Monocytes (0.10 - 0.60 /CUMM) 0.9 H 0.8 H Absolute Eosinophils (0.0 - 0.7 /CUMM) 0.2 0.1 Absolute Basophils (0.0 - 0.2 /CUMM) 0.1 0 PUBS MCHC (33.0 - 37.0 G/DL) 34.7 32.9 L 12/13 13 05/06 12/13 1410 1350 1045 0605 Blood Gas pH (7.35 - 7.45 PH) 7.41 7.41 pCO2 (35 - 45 TORR) 32 L 30 L pO2 (80 - 100 TORR) 78 L 86 HCO3 (21 - 28 MEQ/L) 20 L 19 L ABG O2 Sat (Measured) (>96.0 %) 94.0 L 96.0 P-50 (Temp Corrected) N Carboxyhemoglobin (1.5 - 5.0 %) 0.5 L 0.1 L O2 Concentration % 50 .40 Respiration Rate (BPM) 26 26 O2 Delivery Method ESPRIT VENT Vent Mode VC-AV A/C Expiratory Pressure (CMH2O/P) 5 5 Tidal Volume (CC) 550 550 Chemistry Ammonia (9 - 30 umol/L) 25 Prealbumin (17.6 - 36.0 mg/dL) 5.3 L Coagulation PT (9.4 - 12.5 SEC) 16.5 H INR (0.90 - 1.17) 1.58 H APTT (25 - 37 SEC) 38 H Miscellaneous Phlebotomy Draw Site LEFT RADIAL LEFT RADIAL Gen: On ventilator Neck: Trachoestomy in place with small amount of blood spotting on gauze. Chest: Good air movement on ventilator. RRR. Abd: Soft, distended. CONNIE drains in place with ascitic drainage. CONNIE drain #1 with darker cloudy fluid, #2 & #3 with serous drainage. CONNIE dressing sites with ascitic drainage. Ext: BLE warm. No calve swelling. Assessment/Plan Assessment/Plan -Follow-up morning laboratory studies -Continue TPN -Nothing by mouth and NG tube decompression -GI and DVT prophylaxis -continue CONNIE drains -f/u ID recs -will d/w attending future surgical management Core Measures/Miscellaneous Venous Thromboembolism VTE Risk Factors: Acute medical illness, Age > 40, Obesity, Surgery VTE Contraindications: Abn Clotting Times VTE Prophylaxis Ordered Inpt Mechanical (ALPS/TEDS) VTE Diagnosis: No VTE Type: NONE VTE Confirmed by (Test): NONE Beta Terrence Is Beta Terrence a Home Med? Yes If Yes, Was This Ordered Today? No If No, Why Not? hypotension Antibiotics Is Patient on Antibiotics? No
--- NOTE | 2016-05-08 09:01 | PN- CRCU ---
Subjective HPI/Critical Care Issues: The patient is more alert today. He remains agitated but is following simple commands, noting that he is squeezing his hand and moving his toes on command. He remains on the ventilator. The patient is afebrile. Objective Current Medications: Current Medications Sig/Roberto Start time Last Medication Dose Route Stop Time Status Admin Albuterol Sulfate 3 ML EVERY 4 HRS/AWAKE 05/01 2000 AC 05/08 INH 0813 Fat Emulsion 400 ML 1900 05/07 190 AC 05/07 Intravenous IV 05/08 Fat Emulsion 400 ML 1900 05/06 1900 DC 05/06 Intravenous IV 05/07 1859 211 Heparin Sodium 5,000 UNIT Q8 04/24 1400 AC 05/08 (Porcine) SC 0626 Hydromorphone HCl 2 MG Q4-PRN PRN 05/04 1745 05/08 IV 0836 Lactulose 1 BOT TID 05/05 1712 AC 05/07 PA 2130 Lorazepam 2 MG Q1 PRN 05/06 1900 AC 05/08 IV 0835 Lorazepam 100 MG Q24H 05/01 0400 DC 05/08 Dextrose/Water 1,000 ML IV 0504 Magnesium Sulfate 1 GM Q2H 05/07 0715 DC 05/07 Dextrose/Water 100 ML IV 05/07 1114 1302 Meropenem 1 GM IQ8 05/03 1000 AC 05/08 IV 0836 Nystatin 1 LESLIE BID 05/04 2200 AC 05/07 TOP 2130 Nystatin 1 LESLIE Q6 05/03 1906 AC 05/07 TOP 1751 Ondansetron HCl 4 MG Q8P PRN 04/22 0600 IV Pantoprazole Sodium 40 MG BID 04/22 2200 AC 05/08 IV 0836 Sodium Chloride 1,000 ML .Q20H 05/05 0930 05/07 IV 0636 Total Parenteral 1 UNIT 1900 05/07 190 AC 05/07 Nutrition IV 05/08 Total Parenteral 1 UNIT 1900 05/06 190 DC 05/06 Nutrition IV 05/07 1859 211 Vital Signs & I&O Last 24 Hrs of Vitals and I&O: Vital Signs Date Time Temp Pulse Resp B/P Pulse O2 O2 Flow FiO2 Ox Delivery Rate 05/08 0805 35 05/08 0620 35 05/08 0400 98.6 92 27 149/62 05/08 0400 96 Ventilator 35% 05/08 0356 35 05/08 0030 99.2 90 26 130/84 95 Ventilator 35% 05/08 0025 35 05/08 0000 99.2 90 26 130/84 05/08 0000 95 Ventilator 35% 05/07 2214 35 05/07 2200 97.0 94 26 124/62 05/07 2000 97.4 77 26 122/88 05/07 2000 95 Ventilator 35% 05/07 1937 35 05/07 1606 35 05/07 1600 98 Ventilator 35% 05/07 1600 98.8 88 26 151/80 98 Ventilator 35% 05/07 1340 35 05/07 1200 97 Ventilator 35% 05/07 1125 35 Intake & Output 05/08 1600 05/08 0800 05/08 0000 Intake Total 1343.1 1333.6 Output Total 1200 1750 Balance 143.1 -416.4 Intake, IV 509 400 Intake, Lipid 129.3 133.6 Intake, Oral 0 0 Intake, 704.8 800 TPN/PPN Output, 750 1200 Drainage Output, 50 Gastric Drainage Output, Other 50 Output, Stool 75 100 Output, Urine 325 400 Patient 305 lb Weight Exam General Appearance: intubated, intermittently agitated, moving all extremities, opens eyes but still not following commands Head: atraumatic Neck: supple, trach in place Respiratory: no respiratory distress, few ronchi, lungs expand symmetrically, trachea is midline Cardiovascular: regular rate/rhythm, tachycardia, S1 and S2 heard Abdomen: CONNIE drains in place, distended, Extremities: warm and dry Skin: no cyanosis or edema Results Last 24 Hrs of Lab Results: Laboratory Tests 05/08/16 0434: Anion Gap 7, Estimated GFR > 60, Glucose 540 *H, Calcium 8.7, Phosphorus 3.8, Magnesium 2.3, Total Bilirubin 2.2 H, AST 64 H, ALT 41, Albumin 2.1 L, CBC w Diff NO MAN DIFF REQ, RBC 3.06 L, MCV 94.5 H, MCH 32.8 H, RDW 15.9 H, MPV 10.0, Gran % 76.8 H, Lymphocytes % 11.7 L, Monocytes % 8.8, Eosinophils % 1.8, Basophils % 0.9, Absolute Granulocytes 7.6 H, Absolute Lymphocytes 1.2, Absolute Monocytes 0.9 H, Absolute Eosinophils 0.2, Absolute Basophils 0.1, PUBS MCHC 34.7 Impression/Plan Impression/Plan Impression/Plan: 1. Status post laparoscopic Clint patch for perforated duodenal ulcer with peritonitis, POD # 17. 2. Ongoing respiratory failure which will require tracheostomy placement. 3. 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 4. Ongoing encephalopathy - hepatic? metabolic? 5. Anemia without active blood loss. 6. Deep tissue injury - right scapula area, improving. 7. Hyperchloremia, improving, likely from TPN. 8. Severe malnutrition. 9. Electrolyte abnormalities. Recommendations: * Begin trach mask trials. * Continue to wean Ativan down to off is able. * Continue lactulose enemas. * Continue meropenem, follow up ID recommendations. * Change to normal saline at 50 ML per hour. * Continue TPN to correct metabolic derangements. * MVI, thiamine, folate to continue in TPN. * Continue ventilator bundle with DVT and GI prophylaxis. * Skin care protocol, off load deep tissue injury area. * Continue all supportive care. * Patient's family again updated by telephone. * Possible poor prognosis. TTS 40
--- NOTE | 2016-05-08 09:46 | PN- Infect Dx ---
Subjective Subjective: Afebrile without complaints Objective Last 24 Hrs of Vital Signs/I&O Vital Signs Date Time Temp Pulse Resp B/P Pulse O2 O2 Flow FiO2 Ox Delivery Rate 05/08 0805 35 05/08 0620 35 05/08 0400 98.6 92 27 149/62 05/08 0400 96 Ventilator 35% 05/08 0356 35 05/08 0030 99.2 90 26 130/84 95 Ventilator 35% 05/08 0025 35 05/08 0000 99.2 90 26 130/84 / 0000 95 Ventilator 35% 05/07 2214 35 05/07 2200 97.0 94 26 124/62 05/07 2000 97.4 77 26 122/88 05/07 2000 95 Ventilator 35% 05/07 1937 35 05/07 1606 35 05/07 1600 98 Ventilator 35% 05/07 1600 98.8 88 26 151/80 98 Ventilator 35% 05/07 1340 35 05/07 1200 97 Ventilator 35% 05/07 1125 35 Intake & Output 05/08 1600 05/08 0800 05/08 0000 Intake Total 1343.1 1333.6 Output Total 1200 1750 Balance 143.1 -416.4 Intake, IV 509 400 Intake, Lipid 129.3 133.6 Intake, Oral 0 0 Intake, 704.8 800 TPN/PPN Output, 750 1200 Drainage Output, 50 Gastric Drainage Output, Other 50 Output, Stool 75 100 Output, Urine 325 400 Patient 305 lb Weight Physical Exam Other Physical Findings: He is more awake and alert and able to follow some commands Lungs are clear Heart regular rhythm with no murmur Abdomen is distended, nontender with positive bowel sounds; 3 CONNIE drains remain in place, with cloudy fluid in drain #1 Extremities no cyanosis, clubbing or edema; PICC in the right upper extremity with no inflammation at the site Ann catheter remains in place Results Last 24 Hours of Lab Results: Laboratory Tests 05/08 0434 Chemistry Sodium (137 - 145 mmol/L) 129 L Potassium (3.5 - 5.1 mmol/L) 4.5 Chloride (98 - 107 mmol/L) 101 Carbon Dioxide (22 - 30 mmol/L) 22 Anion Gap (5 - 16) 7 BUN (9 - 20 mg/dL) 20 Creatinine (0.7 - 1.2 mg/dL) 0.7 Estimated GFR (>60 ml/min) > 60 Glucose (65 - 99 mg/dL) 540 *H Calcium (8.4 - 10.2 mg/dL) 8.7 Phosphorus (2.5 - 4.5 mg/dL) 3.8 Magnesium (1.6 - 2.3 mg/dL) 2.3 Total Bilirubin (0.2 - 1.3 mg/dL) 2.2 H AST (17 - 59 U/L) 64 H ALT (21 - 72 U/L) 41 Albumin (3.5 - 5.0 g/dL) 2.1 L Hematology CBC w Diff NO MAN DIFF REQ WBC (4.8 - 10.8 /CUMM) 9.9 RBC (4.70 - 6.10 /CUMM) 3.06 L Hgb (14.0 - 18.0 G/DL) 10.0 L Hct (42 - 52 %) 28.9 L MCV (80.0 - 94.0 FL) 94.5 H MCH (27.0 - 31.0 PG) 32.8 H RDW (11.5 - 14.5 %) 15.9 H Plt Count (130 - 400 /CUMM) 182 MPV (7.4 - 10.4 FL) 10.0 Gran % (42.2 - 75.2 %) 76.8 H Lymphocytes % (20.5 - 51.1 %) 11.7 L Monocytes % (1.7 - 9.3 %) 8.8 Eosinophils % (0 - 5 %) 1.8 Basophils % (0.0 - 2.0 %) 0.9 Absolute Granulocytes (1.4 - 6.5 /CUMM) 7.6 H Absolute Lymphocytes (1.2 - 3.4 /CUMM) 1.2 Absolute Monocytes (0.10 - 0.60 /CUMM) 0.9 H Absolute Eosinophils (0.0 - 0.7 /CUMM) 0.2 Absolute Basophils (0.0 - 0.2 /CUMM) 0.1 PUBS MCHC (33.0 - 37.0 G/DL) 34.7 Last 24 Hours of Garcia Results: No recent cultures Assessment/Plan Impression: Stable with temperatures and white blood cell count remaining normal on Meropenem, restarted 5 days ago in the setting of a presumed leak from his perforated ulcer now 16 days status post laparoscopic Clint plication, with the recent CT scan negative for any collections. His respiratory status is stable and mental status has improved. Suggestion: 1. Further evaluation/management of the presumed duodenal leak per Surgery 2. Continue Meropenem
[2016-05-08 16:00] VITALS: BP 100/60
--- NOTE | 2016-05-08 18:25 | PN- Resident CRCU ---
Subjective HPI/CRCU Issues: Patient is a 50 y/o Male, with a significant past medical history of hypertension, hyperlipidemia, GERD, diverticulosis, degenerative joint disease, avascular necrosis status post hip replacement, fatty liver disease, alcohol abuse presented with chronic alcohol abuse, nausea, vomting, abd distension and pain which got worse so he presented to ED on 04/21/2016. On Evaluation CT scan showed pneumoperitoneum, moderate ascites.On examination the abdomen was distended and tender to palpation , so diagnostic paracentesis was done which showed WBC 9504, RBC 2156. Because of the perforation, It seems that patient developed the secondary bacterial peritonitis. We took surgical consultation. The next couple of hours patient went into septicemia and shock. So he was given IV fluids and prophylactic antibiotics including ceftriaxone metronidazole and vancomycin. We catheterized the patient. Despite of these measures his blood pressure going down , so we took surgical consultation and plan for emergent surgery. Meantime, we intubated the patient and put him on mechanical ventilation(assist control mode, TV-500, respiratory rate 28, PEEP 5, FiO2 100%), triple-lumen catheter was placed in the right side of jugular vein. Patients blood pressure was continuosly going down, so we started him on Levothroid/vasopressin. We also started him on fentanyl and propofol drip. The culture of the ascites fluid came back positive for gram-negative. We took the consult from infectious disease specialist/Abdullahi Osuna MD. He advised to change ceftriaxone to ceftazidime and advised to wait for sensitivities report. Patient went to surgery on 04/22/2016. In postop, His blood pressure was 119/62. He is improving after surgery. When blood pressure was maintained to normal, we stopped all the pressures and also slowly stopped sedation. We tried weaning multiple times but he failed.It was difficult to wean the patient's so it was decided to do a tracheostomy on 05/06/2016 and keep the patient on ventilator. In between the patient started having fever of 100.2, awaited. CT scan of chest/ abdomen/pelvis on 04/29/2016 which showed moderate right-sided pleural effusion and consolidation and collapse of right lower lobe. On 05/02/2016. Patient was diagnosed as having continuous leak from his perforated ulcer, which was confirmed by the methylene Blue, which came out of JP1 drain. According to surgery. There is no any active intervention was required. So patient was treated conservatively. CRCU issues - Tracheostomy (05/06/2016) Perforated duodenal ulcer s/p exploratory laparoscopy with grahm plication of duodenal ulcer Secondary bacterial Peritonitis Septic shock with MODS/ MATT improving/ Lactic acidosis improving/ Alcoholic hepatitis with transaminitis Ascitis Sigmoid Diverticulitis Hypertension Hyperlipidemia Morbidly Obese 24 Hour Events: Overnight uneventful Objective Vital Signs & I&O Last 8 Hrs of Vitals and I&O: Intake & Output 05/08 1600 Intake Total 1494 Output Total 2019 Balance -526 Intake, IV 1494 Output, 1300 Drainage Output, Other 300 Output, Urine 420 Vitals are stable Exam General Appearance: well developed/nourished, no apparent distress, comfortable Head: atraumatic, normal appearance Ears, Nose, Throat: normal pharynx, normal ENT inspection Neck: normal inspection, tracheostmy in place Respiratory: normal breath sounds, chest non-tender, quiet respiration, crackles Cardiovascular: regular rate/rhythm, tachycardia Gastrointestinal: soft, distention, tenderness, bowel sounds are there Extremities: normal inspection, normal capillary refill, pedal edema Weaning Parameters NIF: 27 Minute Volume: 6.4 Resp rate: 32 Vt: 200 Heart Rate: 97 Weaning Schedule Start Time: 0923 Minute Volume: 8.45 Resp Rate: 19 Vt: 435 Heart Rate: 95 End Time: 1930 Minute Volume: 17.7 Resp Rate: 27 Vt: 655 Heart Rate: 101 Current Medications: Current Medications Sig/Roberto Start time Last Medication Dose Route Stop Time Status Admin Albuterol Sulfate 3 ML EVERY 4 HRS/AWAKE 05/01 2000 AC 05/09 INH 1735 Fat Emulsion 450 ML 1900 05/09 1900 05/09 Intravenous IV 05/10 1852004 Fat Emulsion 400 ML 1900 05/08 190 DC 05/08 Intravenous IV 05/09 1852020 Heparin Sodium 5,000 UNIT Q8 04/24 1400 AC 05/09 (Porcine) SC 1458 Hydromorphone HCl 2 MG Q4-PRN PRN 05/04 1745 05/09 IV 0838 Insulin Aspart 0 Q8 05/08 1400 05/09 SC 0547 Lactulose 1 BOT TID 05/05 1712 AC 05/09 MT 1700 Lorazepam 2 MG Q1 PRN 05/06 1900 05/09 IV 1300 Magnesium Sulfate 1 GM ONCE ONE 05/09 0915 DC 05/09 Dextrose/Water 100 ML IV 05/09 1314 1129 Meropenem 1 GM IQ8 05/03 1000 AC 05/09 IV 05/10 0500 1611 Nystatin 1 LESLIE BID 05/04 2200 DC 05/08 TOP 2122 Nystatin 1 LESLIE Q6 05/03 1906 AC 05/07 TOP 1751 Ondansetron HCl 4 MG Q8P PRN 04/22 0600 AC IV Pantoprazole Sodium 40 MG BID 04/22 2200 AC 05/09 IV 0832 Sodium Chloride 1,000 ML Q20H 05/08 1245 AC 05/09 IV 1145 Total Parenteral 1 UNIT 1900 05/09 1900 AC 05/09 Nutrition IV 05/10 1852004 Total Parenteral 1 UNIT 1900 05/08 1900 DC 05/08 Nutrition IV 05/09 Impression/Plan Impression/Problem List Impression: Impression and Plan - Patient is on low-dose Ativan drip. Patient is leaking from the operated side, surgeons are already awair, but it is making prognosis at poor side. He had tracheastomy on 05/06/2016. POD-15 Ventilator -D15 right sided PICC line - D9, CONNIE drains-3 - D15 Foleys cathter -D15 ABG - pH-7.41, PCO2 32, PO2 78, bicarbonate 20 Respiratory * According to Dr. Arroyo, We'll keep the CVP of 12 and BP > [address] Balderas says keep SAS 3-4. * He is on ventilator, Ventilator Settings is -AC, TV-550, IPAP -24, RR-24, PEEP -5, Fio2 40. * There is decreased air entry on the right middle and lower lobe * 05/01/2016 Patient was having right sided pleural effusion. On ultrasound it was found,it is very mild and the radiologist says that there is more chances of pneumothorax, even If they try even for diagnostic purposes.So it was decided not to do a thoracocentesis * we will try for weaning when patient become more alert. * Patient had trachestomy on 05/06/2016 as pt is not weanable Neurology * Although patient is awake but responding to commands.We were suspecting Wernicke's encephalopathy. So we gave high dose thiamine for total 9 days( 05/02) * We did CT head which doent showed any intracranial pathology. * We also checked for serum ammonia which come back to 45 (04/29/2016),25 (05/06) * We will continue ativan drip, as patient get very agitated off Ativan. * We placed the neurology consult to get their opinion regarding encephalopathy, but patient is on ativan drip so they are not able to evaluate it. They will follow up as patient become more alert and oriented. Infectious * Ascitic fluids was growing -enterobacter cloacae and alpha strept. * We will follow ID rcms * Discussed with Dr Osuna, patient doesnt need antibiotics. We stopped Meopenem 1g iv 8hrly, as there is no focus and patient already had 7 days course of antibiotics on 04/30/2016. * Inj meropenem 1g Q8 was restarted on 05/03/2016. * on 04/22/2016 To rule out the source of infection. We orderd CT chest/abdomen/ pelvis, which showed moderate right-sided pleural effusion with right lower lobe consolidation and collapse. * CT scan on 05/04/2016 reported persistent moderate right pleural effusion and small left pleural effusion. Persistent collapse/consolidation of right lower lobe and, to a lesser degree, left lower lobe. Subsegmental atelectasis within the superior lingula has increased. Hepatosplenomegaly. Persistent small volume of ascitic fluid in the abdomen and pelvis, and edema of the mesentery. There are no newly developing fluid collections. The drainage catheters are in stable position compared to 04/29/2016. * urine culture doesnt showed any bacterial growth. * Also we will monitor for possible fungemia but will hold off on anti-fungals for now. Hematology - * Hb-10.2. * We will suplement MultiVit, Thiamine, folic acid. Cardiology * Patient is hemodynamically stable * According to Dr Villatoro his recent troponins are negative so we will observe , if again have NSVT in future than we will revaluate. Gastroenterology * There are 3 CONNIE drains , there was greenish fluid in the CONNIE-1 drain after methylene blue injection. ? Opertaed site is leaking, but we will go for condervative management. * According to the surgeons, TPN, weaning trial,Nothing by mouth and NG tube decompression, GI prophylaxis, monitoring CONNIE output. * Abdoman is soft, there are mild bowel sounds on examiantion * We will do strict Intake output Charting * We will follow GI rcms * We stopped albumin on 04/29/2016. * We started giving lactulose from NG tube but residual was >100cc.So we stopped it and started him on lactulose enemas Q6 PRN,but he had bleeding. * We placed consult for Dr Hernandez to give opinion for further management. Urology * BUN -22 Cr-0.6 * We'll monitor it regularly * We will continue IV fluids changed to 1/2 NS and 50ml/hr * Strict I/O charting Endocrine * TSH -8.9, T4 -1.85 * It seems patient is having Sick Euthyroid syndrome. * We discussed with endocrinology. * We will repeat TFT after patient get recovered. Skin * There are multiple dressings on the skin, abdomen for drain, * PICC line is on the right-hand Alimentry * Mg is 1.9, we will supplement 1gm IV today and also increase in TPN. Diet -continue TPN as advised by dietitian. DVT prophylaxis -ALPS/ Heparin CODE STATUS-full code Problem List: 1. Alcoholic hepatitis 2. Ascites 3. Peritonitis 4. Perforation bowel 5. Pleural effusion 6. Hypomagnesemia Pain Ratin Tomorrow's Labs & Rationales: cbc,icu bundle Plan DVT/Prophylaxis: mechanical
--- NOTE | 2016-05-08 19:37 | NUR ---
PT REMAINS RESTLESS AND AGITATED AT TIMES. DID TOLERATE BEING OOB TO CHAIR FOR 3 HOURS TODAY. WEAN TRIAL WAS TOLERATED WELL. TRACH SITE PACKING REMOVED AFTER SPEAKING WITH DR. SANDOVAL. SITE IS CLEAN, MINIMAL CLEAR SECRETIONS AROUND THE TRACH. TRACH CARE DONE.
[2016-05-08 20:00] VITALS: BP 120/70
[2016-05-09] VITALS (9 sets, daily range): BP systolic 110–148; BP diastolic 60–78
--- NOTE | 2016-05-09 01:22 | NUR ---
TRACH/VENT AT 35% FIO2. SATURATION 96%, LUNGS WITH RHONCHI, MINIMAL YELLOW [id number] OBTAINED WHEN SUCTIONED. TPN AND LIPIDS INFUSING ORDERED. ABDOMEN SOFT, CONNIE X [address] NGT TO RIGHT NARE, DRAINING TO PALE BROWN SRCRETIONS. STERLING IN PLACE, ADEQUATE UO AT THIS TIME. ABT CONTINUED, AFEBRILE.
[2016-05-09 04:39] LABS: ABSOLUTE BASOPHIL COUNT 0 /CUMM (0.0-0.2); ABSOLUTE EOSINOPHIL COUNT 0.2 /CUMM (0.0-0.7); ABSOLUTE GRANULOCYTE CT 6.9 /CUMM (1.4-6.5); ABSOLUTE MONOCYTE COUNT 0.9 /CUMM (0.10-0.60); BASOPHIL % 0.5 % (0.0-2.0); EOSINOPHIL % 2.2 % (0-5); GRANULOCYTE % 76.6 % (42.2-75.2); HEMATOCRIT 28.8 % (42-52); MEAN CORPUSCULAR HGB 30.8 PG (27.0-31.0); MEAN CORPUSCULAR HGB CONC 33.1 G/DL (33.0-37.0); MEAN CORPUSCULAR VOLUME 92.8 FL (80.0-94.0); MEAN PLATELET VOLUME 9.9 FL (7.4-10.4); PLATELET COUNT 168 /CUMM (130-400); RBC DISTRIBUTION WIDTH 15.9 % (11.5-14.5); WHITE BLOOD CELL COUNT 9.1 /CUMM (4.8-10.8)
--- NOTE | 2016-05-09 05:55 | PN- General Surgery ---
Subjective Subjective: The patient was seen this morning. He remained sedated and trached. Per nursing there are no acute issues overnight. Objective Vital Signs and I&Os Vital Signs Date Time Temp Pulse Resp B/P Pulse O2 O2 Flow FiO2 Ox Delivery Rate 05/09 0427 35 05/09 0400 98.5 99 26 118/64 05/09 0400 5 Ventilator 35% 05/09 0052 35 / 0000 98.8 94 25 110/74 / 0000 96 Ventilator 35% 05/09 0000 98.8 94 25 110/74 96 Ventilator 35% / 2222 35 05/08 2000 98.6 91 17 120/70 05/08 2000 98 Ventilator 35% 05/08 1930 35 05/08 1630 35 05/08 1600 97 Ventilator 35% 05/08 1600 97.8 74 22 100/60 97 Ventilator 35% 05/08 1334 35 05/08 1200 98 Ventilator 35% 05/08 1157 35 05/08 0805 35 05/08 0800 98 Ventilator 35% 05/08 0620 35 Intake & Output 05/09 0800 05/09 0000 05/08 1600 05/08 0800 05/08 0000 14 1600 Intake Total 1494 1343.1 2826.6 1694 Output Total 2019 1200 2870 1350 Balance -526 143.1 -43.4 344 Intake, Blood 0 Product Intake, 0 Dialysate Intake, IV 1494 736 537 8757 Intake, Lipid 129.3 266.6 Intake, Oral 0 0 Intake, Other 0 Intake, 704.8 1600 TPN/PPN Intake, Tube 0 Feeding Intake, Tube 0 Irrigant Number 0 200 Bowel Movements Output, Chest 0 Tube Drainage Output, 0 Dialysate Output, 8776 087 8683 600 Drainage Output, 0 Emesis Output, 110 Gastric Drainage Output, Other 300 50 80 250 Output, Stool 75 280 Output, Urine 420 325 800 500 Patient 305 lb Weight Physical Exam: Gen.: Sedated and in no obvious distress Skin: Warm and dry without jaundice Neck: With strict tube in place. The dressing is dry and there are no signs of infection or significant edema. Cardiac: S1 and S2 regular Pulmonary: Bilateral breath sounds are diminished at the bases with transmitted ventilator sounds. Abdomen: Softly distended, obese, still with significant drainage from port site and CONNIE drains Extremity: Bilateral lower extremities are warm and edematous Assessment/Plan Assessment/Plan Assessment: 50-year-old male status post laparoscopic Clint patch repair of perforated ulcer. Status post placement of tracheostomy tube. Postoperatively the patient continues to have multiple medical issues and remains vent dependent with a continuous bile leak. Recommendations: Continue nothing by mouth and parenteral nutrition Antibiotics per ID Keep JPs to suction Attempts to wean off ventilator Strict I's and O's Follow-up morning laboratory studies Daily tracheostomy care GI and DVT prophylaxis Continue care per primary team and various consultations service recommendations
--- NOTE | 2016-05-09 09:25 | PN- CRCU ---
Subjective HPI/Critical Care Issues: The patient remains intermittently agitated. He is still requiring Ativan. The patient did not tolerate trach mask trial yesterday. He is however tolerating pressure support trials. He tolerated getting out of bed yesterday. His vital signs remain stable and he is afebrile. Objective Current Medications: Current Medications Sig/Roberto Start time Last Medication Dose Route Stop Time Status Admin Albuterol Sulfate 3 ML EVERY 4 HRS/AWAKE 05/01 2000 05/09 INH 0816 Fat Emulsion 400 ML 1900 05/08 1900 AC 05/08 Intravenous IV 05/09 Fat Emulsion 400 ML 1900 05/07 190 DC 05/07 Intravenous IV 05/08 Heparin Sodium 5,000 UNIT Q8 04/24 1400 05/09 (Porcine) SC 0520 Hydromorphone HCl 2 MG Q4-PRN PRN 05/04 1745 05/09 IV 0838 Insulin Aspart 0 Q8 05/08 1400 05/09 SC 0547 Lactulose 1 BOT TID 05/05 1712 05/08 [place] 2122 Lorazepam 2 MG Q1 PRN 05/06 1900 05/09 IV 0005 Magnesium Sulfate 1 GM ONCE ONE 05/09 0915 Dextrose/Water 100 ML IV 05/09 1314 Meropenem 1 GM IQ8 05/03 1000 05/09 IV 0832 Nystatin 1 LESLIE BID 05/04 2200 MT 05/08 TOP 2122 Nystatin 1 LESLIE Q6 05/03 1906 05/07 TOP 1751 Ondansetron HCl 4 MG Q8P PRN 04/22 0600 IV Pantoprazole Sodium 40 MG BID 04/22 2200 05/09 IV 0832 Sodium Chloride 1,000 ML Q20H 05/08 1245 05/08 IV 1403 Sodium Chloride 1,000 ML .Q20H 05/05 0930 MT 05/07 IV 0636 Total Parenteral 1 UNIT 1900 05/08 1900 AC 05/08 Nutrition IV 05/09 Total Parenteral 1 UNIT 1900 05/07 1900 DC 05/07 Nutrition IV 05/08 Vital Signs & I&O Last 24 Hrs of Vitals and I&O: Vital Signs Date Time Temp Pulse Resp B/P Pulse O2 O2 Flow FiO2 Ox Delivery Rate 05/09 0800 98.8 97 26 136/70 12/16 0700 98.8 97 26 136/70 98 Ventilator 35% /16 0637 35 / 0427 35 / 0400 98.5 99 26 118/64 05/09 0400 5 Ventilator 35% / 0052 35 12/16 0000 98.8 94 25 110/74 12/ 0000 96 Ventilator 35% / 0000 98.8 94 25 110/74 96 Ventilator 35% 05/08 2222 35 05/08 2000 98.6 91 17 120/70 05/08 2000 98 Ventilator 35% 05/08 1930 35 05/08 1630 35 05/08 1600 97 Ventilator 35% 05/08 1600 97.8 74 22 100/60 97 Ventilator 35% 05/08 1334 35 05/08 1200 98 Ventilator 35% 05/08 1157 35 Intake & Output 05/09 1600 05/09 0800 05/09 0000 Intake Total 1464 Output Total 845 Balance 619 Intake, IV 1464 Output, 450 Drainage Output, Other 20 Output, Urine 375 Patient 266 lb Weight Exam General Appearance: intubated, intermittently agitated, moving all extremities Head: atraumatic Neck: supple, trach in place Respiratory: no respiratory distress, few ronchi, lungs expand symmetrically, trachea is midline Cardiovascular: regular rate/rhythm, tachycardia, S1 and S2 heard Abdomen: CONNIE drains in place, distended Extremities: warm and dry Skin: no cyanosis or edema Results Last 24 Hrs of Lab Results: Laboratory Tests 05/09/16 0351: Anion Gap 6, Estimated GFR > 60, Glucose 128 H, Calcium 8.9, Phosphorus 4.1, Magnesium 1.9, Total Bilirubin 2.1 H, AST 93 H, ALT 49, Albumin 2.2 L, CBC w Diff NO MAN DIFF REQ, RBC 3.10 L, MCV 92.8, MCH 30.8, RDW 15.9 H, MPV 9.9, Gran % 76.6 H, Lymphocytes % 11.2 L, Monocytes % 9.5 H, Eosinophils % 2.2, Basophils % 0.5, Absolute Granulocytes 6.9 H, Absolute Lymphocytes 1.0 L, Absolute Monocytes 0.9 H, Absolute Eosinophils 0.2, Absolute Basophils 0, PUBS MCHC 33.1 Impression/Plan Impression/Plan Impression/Plan: 1. Status post laparoscopic Clint patch for perforated duodenal ulcer with peritonitis, POD # 18. 2. Ongoing respiratory failure s/p tracheostomy placement. Not tolerating trach mask trials however tolerating PS trials well. 3. 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 4. Ongoing encephalopathy - hepatic? metabolic? 5. Anemia without active blood loss. 6. Deep tissue injury - right scapula area, improving. 7. Severe malnutrition - on TPN. 8. Electrolyte abnormalities. Recommendations: * Continue pressure support trials. * Continue to wean Ativan down to off if able. * Continue lactulose enemas. * Continue meropenem, follow up ID recommendations. * Normal saline at 50 ML per hour. * Continue TPN. * MVI, thiamine, folate to continue in TPN. * Continue ventilator bundle with DVT and GI prophylaxis. * Skin care protocol, off load deep tissue injury area. * Will discuss the possibility of a GJ tube with surgery. * Patient's family updated. * Possible poor prognosis. TTS 40
--- NOTE | 2016-05-09 11:03 | PN- Infect Dx ---
Subjective Subjective: Afebrile. He has been agitated, requiring Ativan. He has apparently not tolerated trach mask trials. Objective Last 24 Hrs of Vital Signs/I&O Vital Signs Date Time Temp Pulse Resp B/P Pulse O2 O2 Flow FiO2 Ox Delivery Rate 05/09 0821 35 05/09 0800 98.8 97 26 136/70 05/09 0800 97 Trach Mask 35% 05/09 0700 98.8 97 26 136/70 98 Ventilator 35% 05/09 0637 35 05/09 0427 35 05/09 0400 98.5 99 26 118/64 05/09 0400 5 Ventilator 35% 05/09 0052 35 / 0000 98.8 94 25 110/74 12/ 0000 96 Ventilator 35% 05/09 0000 98.8 94 25 110/74 96 Ventilator 35% 05/08 2222 35 05/08 2000 98.6 91 17 120/70 05/08 2000 98 Ventilator 35% 05/08 1930 35 05/08 1630 35 05/08 1600 97 Ventilator 35% 05/08 1600 97.8 74 22 100/60 97 Ventilator 35% 05/08 1334 35 05/08 1200 98 Ventilator 35% 05/08 1157 35 Intake & Output 05/09 1600 16 0800 12 0000 Intake Total 1464 Output Total 845 Balance 619 Intake, IV 1464 Output, 450 Drainage Output, Other 20 Output, Urine 375 Patient 266 lb Weight Physical Exam Other Physical Findings: He is awake but not responsive. He is agitated on the ventilator Lungs are clear Heart regular rhythm with no murmur Abdomen is distended, nontender with positive bowel sounds; CONNIE drains remain in place, with cloudy drainage from #1 Extremities no cyanosis, clubbing or edema Ann catheter remains in place Results Last 24 Hours of Lab Results: Laboratory Tests 05/09 0351 Chemistry Sodium (137 - 145 mmol/L) 140 Potassium (3.5 - 5.1 mmol/L) 4.2 Chloride (98 - 107 mmol/L) 107 Carbon Dioxide (22 - 30 mmol/L) 27 Anion Gap (5 - 16) 6 BUN (9 - 20 mg/dL) 21 H Creatinine (0.7 - 1.2 mg/dL) 0.6 L Estimated GFR (>60 ml/min) > 60 Glucose (65 - 99 mg/dL) 128 H Calcium (8.4 - 10.2 mg/dL) 8.9 Phosphorus (2.5 - 4.5 mg/dL) 4.1 Magnesium (1.6 - 2.3 mg/dL) 1.9 Total Bilirubin (0.2 - 1.3 mg/dL) 2.1 H AST (17 - 59 U/L) 93 H ALT (21 - 72 U/L) 49 Albumin (3.5 - 5.0 g/dL) 2.2 L Hematology CBC w Diff NO MAN DIFF REQ WBC (4.8 - 10.8 /CUMM) 9.1 RBC (4.70 - 6.10 /CUMM) 3.10 L Hgb (14.0 - 18.0 G/DL) 9.5 L Hct (42 - 52 %) 28.8 L MCV (80.0 - 94.0 FL) 92.8 MCH (27.0 - 31.0 PG) 30.8 RDW (11.5 - 14.5 %) 15.9 H Plt Count (130 - 400 /CUMM) 168 MPV (7.4 - 10.4 FL) 9.9 Gran % (42.2 - 75.2 %) 76.6 H Lymphocytes % (20.5 - 51.1 %) 11.2 L Monocytes % (1.7 - 9.3 %) 9.5 H Eosinophils % (0 - 5 %) 2.2 Basophils % (0.0 - 2.0 %) 0.5 Absolute Granulocytes (1.4 - 6.5 /CUMM) 6.9 H Absolute Lymphocytes (1.2 - 3.4 /CUMM) 1.0 L Absolute Monocytes (0.10 - 0.60 /CUMM) 0.9 H Absolute Eosinophils (0.0 - 0.7 /CUMM) 0.2 Absolute Basophils (0.0 - 0.2 /CUMM) 0 PUBS MCHC (33.0 - 37.0 G/DL) 33.1 Last 24 Hours of Garcia Results: No recent cultures Assessment/Plan Impression: Stable with temperatures and white blood cell count remaining normal on Meropenem, restarted 6 days ago in the setting of a presumed leak from his perforated ulcer now 17 days status post laparoscopic Clint plication, with the recent CT scan negative for any collections. His respiratory status is stable, though he failed weaning trials, and he remains agitated requiring sedation. Suggestion: 1. Further evaluation/management of the presumed duodenal leak per Surgery 2. Continue weaning efforts per Pulmonary 3. Discontinue Meropenem in the a.m. and follow off antibiotics
--- NOTE | 2016-05-09 13:08 | NUR ---
Patient is awake and restless, can move all extremities but does not follow commands. SAS 4-5, pupils 4mm and brisk. Ativan gtt infusing at 2mg/hr and pt is receiving IVP ativan and dilaudid prn. Soft bilateral wrist restrains in place. NSR-ST on tele monitor. HR= 90-100's, SBP: 110-130s however autocuff is reading slightly higher. + pulses. #9 portex trach that was placed 05/06- Trach care done this morning and Chris from surgery and Dr. Whittington notified of the thick diehl/blood tinged secretions noted to the trach site. He is currently on a cpap trial with a PSV of 6. Prior vent settings AC 26/550/35/5. Lungs clear and diminished at the bases. R. nares NGT in place to low wall suction with green output noted. [address] draining serrous output. Dressings in place around the CONNIE drains due to moderate amounts of drainage from around insertion site. A puncture is also noted to the abdomen from surgery that is draining serrous output. Rectal tube in place and he is receiving lactulose enemas TID per order. Ann in place with clear tim urine draining approx 50-60mls/hr. NIHARIKA PICC line in place and is WNL- TPN and lipids infusing. NS @ 50- pt received a 1gram mag bolus. Pt medicated for pain via FLACC score of 4-5. Pts family updated on POC frequently. Vitals have been stable. Will continue to closely monitor patient.
--- NOTE | 2016-05-09 14:46 | PN- Resident CRCU ---
Subjective HPI/CRCU Issues: Patient is a 50 y/o Male, with a significant past medical history of hypertension, hyperlipidemia, GERD, diverticulosis, degenerative joint disease, avascular necrosis status post hip replacement, fatty liver disease, alcohol abuse presented with chronic alcohol abuse, nausea, vomting, abd distension and pain which got worse so he presented to ED on 04/21/2016. On Evaluation CT scan showed pneumoperitoneum, moderate ascites.On examination the abdomen was distended and tender to palpation , so diagnostic paracentesis was done which showed WBC 9504, RBC 2156. Because of the perforation, It seems that patient developed the secondary bacterial peritonitis. We took surgical consultation. The next couple of hours patient went into septicemia and shock. So he was given IV fluids and prophylactic antibiotics including ceftriaxone metronidazole and vancomycin. We catheterized the patient. Despite of these measures his blood pressure going down , so we took surgical consultation and plan for emergent surgery. Meantime, we intubated the patient and put him on mechanical ventilation(assist control mode, TV-500, respiratory rate 28, PEEP 5, FiO2 100%), triple-lumen catheter was placed in the right side of jugular vein. Patients blood pressure was continuosly going down, so we started him on Levothroid/vasopressin. We also started him on fentanyl and propofol drip. The culture of the ascites fluid came back positive for gram-negative. We took the consult from infectious disease specialist/Abdullahi Osuna MD. He advised to change ceftriaxone to ceftazidime and advised to wait for sensitivities report. Patient went to surgery on 04/22/2016. In postop, His blood pressure was 119/62. He is improving after surgery. When blood pressure was maintained to normal, we stopped all the pressures and also slowly stopped sedation. We tried weaning multiple times but he failed.It was difficult to wean the patient's so it was decided to do a tracheostomy on 05/06/2016 and keep the patient on ventilator. In between the patient started having fever of 100.2, awaited. CT scan of chest/ abdomen/pelvis on 04/29/2016 which showed moderate right-sided pleural effusion and consolidation and collapse of right lower lobe. On 05/02/2016. Patient was diagnosed as having continuous leak from his perforated ulcer, which was confirmed by the methylene Blue, which came out of JP1 drain. According to surgery. There is no any active intervention was required. So patient was treated conservatively. CRCU issues - Tracheostomy (05/06/2016) Perforated duodenal ulcer s/p exploratory laparoscopy with grahm plication of duodenal ulcer Secondary bacterial Peritonitis Septic shock with MODS/ MATT improving/ Lactic acidosis improving/ Alcoholic hepatitis with transaminitis Ascitis Sigmoid Diverticulitis Hypertension Hyperlipidemia Morbidly Obese 24 Hour Events: patient is on ativan, we are continuosly trying for weaning Objective Vital Signs & I&O Last 8 Hrs of Vitals and I&O: Intake & Output 05/09 1600 Intake Total 2195.0 Output Total 1375 Balance 820.0 Intake, IV 760 Intake, Lipid 155.0 Intake, Other 350 Intake, 930 TPN/PPN Number 1 Bowel Movements Output, 475 Drainage Output, 100 Gastric Drainage Output, Other 150 Output, Stool 200 Output, Urine 450 VItals stable Exam General Appearance: intubated, mild distress, obese Head: atraumatic, normal appearance Ears, Nose, Throat: normal pharynx Neck: normal inspection, supple, tracheostomy is in place Respiratory: normal breath sounds, chest non-tender, no respiratory distress, crackles Cardiovascular: regular rate/rhythm, edema Gastrointestinal: soft, distention, tenderness Extremities: pedal edema Weaning Parameters NIF: 57 Minute Volume: 16.3 Resp rate: 26 Vt: 650 Heart Rate: 100 Weaning Schedule Start Time: 1155 Minute Volume: 13.1 Resp Rate: 18 Vt: 900 Heart Rate: 109 End Time: 1345 Minute Volume: 15 Resp Rate: 22 Vt: 1050 Heart Rate: 100 Current Medications: Current Medications Sig/Roberto Start time Last Medication Dose Route Stop Time Status Admin Acetaminophen 1,000 MG ONCE ONE 05/12 1215 UNVr N/A 1 UNIT IV 05/12 1229 Albuterol Sulfate 3 ML EVERY 4 HRS/AWAKE 05/01 2000 AC 05/12 INH 0835 Fat Emulsion 450 ML 1900 05/12 1900 AC Intravenous IV 05/13 1859 Fat Emulsion 450 ML 1900 05/11 190 AC 05/11 Intravenous IV 05/12 185 1936 Fat Emulsion 450 ML 0 05/10 190 DC 05/10 Intravenous IV 05/11 185 1948 Heparin Sodium 5,000 UNIT Q8 04/24 1400 AC 05/12 (Porcine) SC 0538 Hydromorphone HCl 2 MG Q4-PRN PRN 05/04 1745 AC 05/12 IV 0831 Insulin Aspart 0 Q8 05/08 1400 AC 05/11 SC 2201 Lactulose 1 BOT BID 05/11 2200 AC 05/12 UT 0828 Lorazepam 50 MG Q24H 05/12 0745 AC 05/12 Sodium Chloride 500 ML IV 0930 Lorazepam 2 MG ONE ONE 05/11 1415 DC 05/11 IV 05/11 1416 1414 Lorazepam 2 MG ONE ONE 05/11 1400 DC 05/11 IV 05/11 1401 1402 Lorazepam 50 MG Q24H 05/11 0015 DC 05/12 Sodium Chloride 500 ML IV 0541 Ondansetron HCl 4 MG Q8P PRN 04/22 0600 AC IV Pantoprazole Sodium 40 MG BID 04/22 2200 AC 05/12 IV 0831 Sodium Chloride 1,000 ML .Q20H 05/12 0945 AC 05/12 IV 1048 Sodium Chloride 1,000 ML Q20H 05/08 1245 DC 05/12 IV 0005 Total Parenteral 1 UNIT 1900 05/12 1900 AC Nutrition IV 05/13 1859 Total Parenteral 1 UNIT 1900 05/11 1900 AC 05/11 Nutrition IV 05/12 1859 1936 Total Parenteral 1 UNIT 1900 05/10 1900 DC 05/10 Nutrition IV 05/11 1859 1948 Impression/Plan Impression/Problem List Impression: Impression and Plan - Patient is on low-dose Ativan drip. Patient is leaking from the operated side, surgeons are already awair, but it is making prognosis at poor side. He had tracheastomy on 05/06/2016. POD-15 Ventilator -D15 right sided PICC line - D9, CONNIE drains-3 - D15 Foleys cathter -D15 ABG - pH-7.41, PCO2 32, PO2 78, bicarbonate 20 Respiratory * According to Dr. Arroyo, We'll keep the CVP of 12 and BP > [address] Balderas says keep SAS 3-4. * He is on ventilator, Ventilator Settings is -AC, TV-550, IPAP -24, RR-24, PEEP -5, Fio2 40. * There is decreased air entry on the right middle and lower lobe * 05/01/2016 Patient was having right sided pleural effusion. On ultrasound it was found,it is very mild and the radiologist says that there is more chances of pneumothorax, even If they try even for diagnostic purposes.So it was decided not to do a thoracocentesis * we will try for weaning when patient become more alert. * Patient had trachestomy on 05/06/2016 as pt is not weanable Neurology * Although patient is awake but responding to commands.We were suspecting Wernicke's encephalopathy. So we gave high dose thiamine for total 9 days( 05/02) * We did CT head which doent showed any intracranial pathology. * We also checked for serum ammonia which come back to 45 (04/29/2016),25 (05/06) * We will continue ativan drip, as patient get very agitated off Ativan. * We placed the neurology consult to get their opinion regarding encephalopathy, but patient is on ativan drip so they are not able to evaluate it. They will follow up as patient become more alert and oriented. Infectious * Ascitic fluids was growing -enterobacter cloacae and alpha strept. * We will follow ID rcms * Discussed with Dr Osuna, patient doesnt need antibiotics. We stopped Meopenem 1g iv 8hrly, as there is no focus and patient already had 7 days course of antibiotics on 04/30/2016. * Inj meropenem 1g Q8 was restarted on 05/03/2016. * on 04/22/2016 To rule out the source of infection. We orderd CT chest/abdomen/ pelvis, which showed moderate right-sided pleural effusion with right lower lobe consolidation and collapse. * CT scan on 05/04/2016 reported persistent moderate right pleural effusion and small left pleural effusion. Persistent collapse/consolidation of right lower lobe and, to a lesser degree, left lower lobe. Subsegmental atelectasis within the superior lingula has increased. Hepatosplenomegaly. Persistent small volume of ascitic fluid in the abdomen and pelvis, and edema of the mesentery. There are no newly developing fluid collections. The drainage catheters are in stable position compared to 04/29/2016. * urine culture doesnt showed any bacterial growth. * Also we will monitor for possible fungemia but will hold off on anti-fungals for now. Hematology - * Hb-10.2. * We will suplement MultiVit, Thiamine, folic acid. Cardiology * Patient is hemodynamically stable * According to Dr Villatoro his recent troponins are negative so we will observe , if again have NSVT in future than we will revaluate. Gastroenterology * There are 3 CONNIE drains , there was greenish fluid in the CONNIE-1 drain after methylene blue injection. ? Opertaed site is leaking, but we will go for condervative management. * According to the surgeons, TPN, weaning trial,Nothing by mouth and NG tube decompression, GI prophylaxis, monitoring CONNIE output. * Abdoman is soft, there are mild bowel sounds on examiantion * We will do strict Intake output Charting * We will follow GI rcms * We stopped albumin on 04/29/2016. * We started giving lactulose from NG tube but residual was >100cc.So we stopped it and started him on lactulose enemas Q6 PRN,but he had bleeding. * We placed consult for Dr Hernandez to give opinion for further management. Urology * BUN -22 Cr-0.6 * We'll monitor it regularly * We will continue IV fluids changed to 1/2 NS and 50ml/hr * Strict I/O charting Endocrine * TSH -8.9, T4 -1.85 * It seems patient is having Sick Euthyroid syndrome. * We discussed with endocrinology. * We will repeat TFT after patient get recovered. Skin * There are multiple dressings on the skin, abdomen for drain, * PICC line is on the right-hand Alimentry * Mg is 1.9, we will supplement 1gm IV today and also increase in TPN. Diet -continue TPN as advised by dietitian. DVT prophylaxis -ALPS/ Heparin CODE STATUS-full code Problem List: 1. EtOH dependence 2. Alcoholic hepatitis 3. Ascites 4. Bowel perforation 5. Sepsis 6. MATT (acute kidney injury) Pain Ratin Tomorrow's Labs & Rationales: CBC,ICU BUNDLE Plan DVT/Prophylaxis: mechanical
--- NOTE | 2016-05-09 15:16 | RADIOLOGY REPORT ---
EXAMINATION: XR PORTABLE CHEST CLINICAL INFORMATION: Patient on TPN. COMPARISON: Multiple prior chest x-rays most recent prior dated 05/06/2016 TECHNIQUE: Portable view of the chest was obtained. FINDINGS: Interval placement of tracheostomy tube. Feeding tube extends below the level of the diaphragm. Right-sided central line terminating below the cavoatrial junction. Cardiomegaly. Low lung volumes. Central pulmonary vascular congestion. No acute airspace opacities. Trace right pleural effusion. IMPRESSION: 1. Cardiomegaly and central pulmonary vascular congestion. 2. Trace right pleural effusion. 2. Interval placement of the tracheostomy tube.
--- NOTE | 2016-05-09 20:34 | NUR ---
PT OPENS EYES TO VERBAL STIMULI, BUT NOT TRACKING OR FOLLOWING COMMANDS AT PRESENT. ATIVAN GTT AT 2MG/HR-SEE FLOW SHEET FOR SAS SCORES-4 AT PRESENT. SOFT BILATERAL WRIST RESTRAINTS ON. #[address] PT VENTED[address] RHONCI THOUGHOUT BILATERALLY-SUCTIONING FOR MOD OF PALE YELLOW SECREATIONS. BLOODY DRAINAGE NOTED AROUND TRACH. SEE FLOW SHEET FOR VS, 02 SATS, I/O'S. MONITOR SHOWS NSR, NO ECTOPY NOTED AT PRESENT. BP STABLE AT PRESENT. ABD SOFT, DISTENDED, HYPOACTIVE BOWEL SOUNDS. NGT IN PLACE TO LWS-DRAINING BROWN BILIOUS DRAINAGE-PLACEMENT CONFIRMED BY AIR. RECTAL TUBE IN PLACE-DRAINING LIQUID LIGHT BROWN STOOLS. [address]-ALL TO SELF SUCTION-DRAINING SEROUS DRAINAGE. WOUND BAG TO LT ABD IN PLACE-DRAINING SEROUS DRAINAGE. STERLING IN PLACE-DRAINING ADEQUATE AMT OF DARK PATRICK URINE AT PRESENT. SKIN INACT. ABD DSGS C/D/I AT PRESENT
[2016-05-10] VITALS: BP 155/90
[2016-05-10 04:00] VITALS: BP 133/76
[2016-05-10 05:13] LABS: ABSOLUTE BASOPHIL COUNT 0.1 /CUMM (0.0-0.2); ABSOLUTE EOSINOPHIL COUNT 0.1 /CUMM (0.0-0.7); ABSOLUTE GRANULOCYTE CT 6.3 /CUMM (1.4-6.5); ABSOLUTE LYMPH COUNT 1.1 /CUMM (1.2-3.4); ABSOLUTE MONOCYTE COUNT 0.7 /CUMM (0.10-0.60); BASOPHIL % 0.8 % (0.0-2.0); EOSINOPHIL % 1.1 % (0-5); GRANULOCYTE % 76.4 % (42.2-75.2); MEAN CORPUSCULAR HGB 31.4 PG (27.0-31.0); MEAN CORPUSCULAR HGB CONC 33.7 G/DL (33.0-37.0); MEAN PLATELET VOLUME 9.9 FL (7.4-10.4); PLATELET COUNT 153 /CUMM (130-400); RBC DISTRIBUTION WIDTH 16.2 % (11.5-14.5); RED BLOOD CELL CT 3.12 /CUMM (4.70-6.10); WHITE BLOOD CELL COUNT 8.3 /CUMM (4.8-10.8)
--- NOTE | 2016-05-10 06:13 | PN- General Surgery ---
Subjective Subjective: Pt remains agitated on vent Objective Vital Signs and I&Os Vital Signs Date Time Temp Pulse Resp B/P Pulse O2 O2 Flow FiO2 Ox Delivery Rate 05/10 0403 35 05/10 0400 98.5 93 28 133/76 05/10 0400 98 Ventilator 35% 05/10 0158 35 05/10 0000 99.9 93 27 155/90 05/10 0000 94 Ventilator 35% 05/09 2300 99.9 93 27 148/70 94 Ventilator 35% 05/09 2113 35 05/09 2000 98.7 87 26 147/78 05/09 2000 99 Ventilator 35% 05/09 1736 35 05/09 1600 99.2 96 26 132/64 05/09 1600 99.2 96 26 132/64 94 Ventilator 35% 05/09 1600 94 Trach Mask 35% 05/09 1345 35 05/09 1200 102 20 120/60 05/09 1200 96 Ventilator 35% 05/09 1146 35 05/09 1000 98 26 127/72 05/09 0821 35 05/09 0800 98.8 97 26 136/70 05/09 0800 97 Trach Mask 35% 05/09 0700 98.8 97 26 136/70 98 Ventilator 35% 05/09 0637 35 Intake & Output 05/10 0800 05/10 0000 05/09 1600 16 0800 05/09 0000 05/08 1600 Intake Total 1414.0 2195.0 1464 1494 Output Total 1030 4411 831 6648 Balance 384.0 820.0 619 -526 Intake, IV 874 592 5562 1494 Intake, Lipid 127.0 155.0 Intake, Other 350 Intake, 740 930 TPN/PPN Number 1000 1 Bowel Movements Output, 575 008 243 0943 Drainage Output, 50 100 Gastric Drainage Output, Other 150 20 300 Output, Stool 200 Output, Urine 405 450 375 420 Patient 266 lb Weight Physical Exam: agitated\ failed trach trials yesterday Continues to have significant output from micheline drains and port site rectal tube - 1000cc liquid stool Abd: softly distended, positive bowel sounds Wounds: ostomy bag to port site, micheline sites all look okay, dressed and dry Assessment/Plan Assessment/Plan 50 yo with numerous medical issues pod 18 from lap em patch for perf duodenal ulcer, pod 4 trach continue drains continue tpn Dr Floch to see regarding placing a tube for tube feeds as his gut is working All other care per medical team
--- NOTE | 2016-05-10 06:29 | NUR ---
PT REMAINS RESTLESS AND AGITATED-SAS SCORE 4-5 FOR SHIFT. ATIVAN GTT REMAINS AT 2MG/HR. BILATERAL SOFT WRIST RESTRAINTS REMAIN. BREATH SOUNDS RHONCI, SUCTIONING FOR MOD AMT OF THIN YELLOW SECREATIONS. 02 SATS 93-99% FOR SHIFT. MONITOR NSR WITH OCC PVC'S NOTED THOUGHOUT SHIFT. HR-80-90'S FOR SHIFT. SBP-120-150'S FOR SHIFT. ADEQUATE URINE OUTPUT OF CLEAR DARK PATRICK URINE FOR SHIFT. NGT DRAINED LIGHT BROWN-YELLOW BILIOUS DRAINAGE. RT CONNIE DRAINED A LG AMT OF SEROUS DRAINAGE, MID ABD CONNIE WITH PINK SEROUS DRAINAGE, LT CONNIE WITH SCANT SEROUS DRAINAGE. WITH DRESSING CHANGE MID ABD AND LT ABD CONNIE'S WITH SEROUS DRAINAGE AROUND THEM RT CONNIE WITHOUT DRAINAGE AROUND SITE. RT ABD COLLECTION BAG WITH SEROUS DRAINAGE. SKIN INTACT. NO OTHER CHANGE IN PT ASSESSMENTS THOUGHOUT SHIFT
[2016-05-10 08:00] VITALS: BP 130/70
--- NOTE | 2016-05-10 10:24 | PN- CRCU ---
Subjective HPI/Critical Care Issues: pt seen and examined afebrile, 700ml positive urine output NS@50cc/hr ativan gtt @ 2 TPN ROS unobtainable given sedation, mechanical ventilation Objective Current Medications: Current Medications Sig/Roberto Start time Last Medication Dose Route Stop Time Status Admin Albuterol Sulfate 3 ML EVERY 4 HRS/AWAKE 05/01 2000 05/10 INH 0807 Fat Emulsion 450 ML 1900 05/09 1900 AC 05/09 Intravenous IV 05/10 Fat Emulsion 400 ML 1900 05/08 1900 DC 05/08 Intravenous IV 05/09 Heparin Sodium 5,000 UNIT Q8 04/24 1400 AC 05/10 (Porcine) SC 0619 Hydromorphone HCl 2 MG Q4-PRN PRN 05/04 1745 05/09 IV 0838 Insulin Aspart 0 Q8 05/08 1400 AC 05/09 SC 2154 Lactulose 1 BOT TID 05/05 1712 05/09 [place] 2159 Lorazepam 50 MG ONCE ONE 05/09 2130 05/10 Sodium Chloride 500 ML IV 05/10 2229 0129 Lorazepam 2 MG Q1 PRN 05/06 1900 DC 05/09 IV 1300 Magnesium Sulfate 1 GM ONCE ONE 05/09 0915 DC 05/09 Dextrose/Water 100 ML IV 05/09 1314 1129 Meropenem 1 GM IQ8 05/03 1000 DC 05/09 IV 05/10 0500 2358 Nystatin 1 LESLIE Q6 05/03 1906 05/07 TOP 1751 Ondansetron HCl 4 MG Q8P PRN 04/22 0600 IV Pantoprazole Sodium 40 MG BID 04/22 2200 AC 05/09 IV 2155 Sodium Chloride 1,000 ML Q20H 05/08 1245 05/10 IV 0616 Total Parenteral 1 UNIT 1900 05/09 1900 AC 05/09 Nutrition IV 05/10 Total Parenteral 1 UNIT 1900 05/08 190 DC 05/08 Nutrition IV 05/09 Vital Signs & I&O Last 24 Hrs of Vitals and I&O: Vital Signs Date Time Temp Pulse Resp B/P Pulse O2 O2 Flow FiO2 Ox Delivery Rate 05/10 0820 35 05/10 0630 35 05/10 0403 35 05/10 0400 98.5 93 28 133/76 05/10 0400 98 Ventilator 35% 05/10 0158 35 05/10 0000 99.9 93 27 155/90 05/10 0000 94 Ventilator 35% 05/09 2300 99.9 93 27 148/70 94 Ventilator 35% 05/09 2113 35 05/09 2000 98.7 87 26 147/78 05/09 2000 99 Ventilator 35% 05/09 1736 35 05/09 1600 99.2 96 26 132/64 05/09 1600 99.2 96 26 132/64 94 Ventilator 35% 05/09 1600 94 Trach Mask 35% 05/09 1345 35 05/09 1200 102 20 120/60 05/09 1200 96 Ventilator 35% 05/09 1146 35 Intake & Output 05/10 1600 05/10 0800 05/10 0000 Intake Total 1430.0 1414.0 Output Total 1380 1030 Balance 50.0 384.0 Intake, IV 539 547 Intake, Lipid 135.0 127.0 Intake, 756 740 TPN/PPN Number 1000 Bowel Movements Output, 700 575 Drainage Output, 150 50 Gastric Drainage Output, Stool 200 Output, Urine 330 405 Patient 271 lb Weight Exam Other Physical Findings: gen/heent tracheostomy, mechanically ventilated cvs s1, s2 lungs transmitted abd soft, micheline drains ext no edema Results Last 24 Hrs of Lab Results: Laboratory Tests 05/10/16 0411: Anion Gap 7, Estimated GFR > 60, Glucose 136 H, Calcium 9.1, Phosphorus 3.7, Magnesium 2.0, Total Bilirubin 1.9 H, AST 67 H, ALT 45, Albumin 2.2 L, CBC w Diff NO MAN DIFF REQ, RBC 3.12 L, MCV 93.0, MCH 31.4 H, RDW 16.2 H, MPV 9.9, Gran % 76.4 H, Lymphocytes % 12.9 L, Monocytes % 8.8, Eosinophils % 1.1, Basophils % 0.8, Absolute Granulocytes 6.3, Absolute Lymphocytes 1.1 L, Absolute Monocytes 0.7 H, Absolute Eosinophils 0.1, Absolute Basophils 0.1, PUBS MCHC 33.7 Impression/Plan Impression/Plan Impression/Plan: Impression 50 year old man * perforated viscus s/p repair * hypoxemic respiratory failure secondary to acute illness * encephalopathy * s/p septic shock secondary to ascitic - Enterobacter/alpha strep * anemia stable * severe malnutrition * Plan Respiratory * continue mechanical ventilation, s/p trach ID * Ascitic Enterobacter/alpha strep * ID consultation appreciated * Meropenem stopped today CVS * hemodynamic monitoring Heme * recheck coags next blood draw * monitor cbc, coags, no active bleeding Metabolic * ins/outs * creatinine, electrolytes monitoring * aaron in place * monitor LFTs Alimentary * TPN, f/u surgical recommendations, ?tube feeds per surgery, ? duodenal leak, surgical follow up Neuro * sedation as needed to maintain comfort, ativan/fentanyl/dilaudid DVT prophylaxis at all times GI prophylaxis - Protonix 40mg IV BID TTS 40min Discussed with family
[2016-05-10 12:00] VITALS: BP 112/60
--- NOTE | 2016-05-10 13:56 | PN- Resident CRCU ---
Subjective HPI/CRCU Issues: CRCU ISSUES Tracheostomy (05/06/2016) Perforated duodenal ulcer s/p exploratory laparoscopy with grahm plication of duodenal ulcer Secondary bacterial Peritonitis Septic shock with MODS/ MATT improving/ Lactic acidosis improving/ Alcoholic hepatitis with transaminitis Ascitis Sigmoid Diverticulitis Hypertension Hyperlipidemia Morbidly Obese 24 Hour Events: Patient was seen and examined this morning. He is not alert, awake, oriented to time place and person. No acute events reported overnight. He remained afebrile. Heart rate 97, normal sinus rhythm, respiratory rate 26, blood pressure 145/80. Ventilation settings VT 550, fiO2 35%, PEEP 5, saturating at 99%. AC 26. Ins and outs good urine output, 700 mL positive. Receiving IV fluids normal saline 50 mL per hour. On Ativan drip. Getting total parenteral nutrition. Unable to obtain history and ros given sedation. Objective Vital Signs & I&O Last 8 Hrs of Vitals and I&O: Laboratory Tests 05/10/16 0411: Anion Gap 7, Estimated GFR > 60, Glucose 136 H, Calcium 9.1, Phosphorus 3.7, Magnesium 2.0, Total Bilirubin 1.9 H, AST 67 H, ALT 45, Albumin 2.2 L, CBC w Diff NO MAN DIFF REQ, RBC 3.12 L, MCV 93.0, MCH 31.4 H, RDW 16.2 H, MPV 9.9, Gran % 76.4 H, Lymphocytes % 12.9 L, Monocytes % 8.8, Eosinophils % 1.1, Basophils % 0.8, Absolute Granulocytes 6.3, Absolute Lymphocytes 1.1 L, Absolute Monocytes 0.7 H, Absolute Eosinophils 0.1, Absolute Basophils 0.1, PUBS MCHC 33.7 Vital Signs Date Time Temp Pulse Resp B/P Pulse O2 O2 Flow FiO2 Ox Delivery Rate 05/10 1202 35 05/10 1200 97.4 71 20 112/60 05/10 1200 96 Ventilator 35% 05/10 0820 35 05/10 0800 98.1 96 26 130/70 05/10 0800 98.1 96 26 130/70 99 Ventilator 35% 05/10 0800 99 Ventilator 35% 05/10 0630 35 Exam General Appearance: mechanical ventilation status post tracheostomy Head: atraumatic Neck: normal inspection Respiratory: lungs clear Cardiovascular: regular rate/rhythm Gastrointestinal: normal bowel sounds, soft, micheline drains Extremities: no edema Weaning Parameters NIF: 57 Minute Volume: 16.3 Resp rate: 26 Vt: 650 Heart Rate: 100 Weaning Schedule Start Time: 1155 Minute Volume: 13.1 Resp Rate: 18 Vt: 900 Heart Rate: 109 End Time: 1345 Minute Volume: 15 Resp Rate: 22 Vt: 1050 Heart Rate: 100 Current Medications: Current Medications Sig/Roberto Start time Last Medication Dose Route Stop Time Status Admin Albuterol Sulfate 3 ML EVERY 4 HRS/AWAKE 05/01 2000 AC 05/10 INH 1156 Fat Emulsion 450 ML 1900 05/10 1900 AC Intravenous IV 05/11 185 Fat Emulsion 450 ML 1900 05/09 1900 AC 05/09 Intravenous IV 05/10 Fat Emulsion 400 ML 1900 05/08 1900 DC 05/08 Intravenous IV 05/09 Heparin Sodium 5,000 UNIT Q8 04/24 1400 AC 05/10 (Porcine) SC 0619 Hydromorphone HCl 2 MG Q4-PRN PRN 05/04 1745 05/10 IV 1023 Insulin Aspart 0 Q8 05/08 1400 05/09 SC 2154 Lactulose 1 BOT TID 05/05 1712 AC 05/10 HI 1109 Lorazepam 50 MG ONCE ONE 05/09 2130 AC 05/10 Sodium Chloride 500 ML IV 05/10 222 0129 Lorazepam 2 MG Q1 PRN 05/06 1900 DC 05/09 IV 1300 Meropenem 1 GM IQ8 05/03 1000 DC 05/09 IV 05/10 0500 2358 Nystatin 1 LESLIE Q6 05/03 1906 05/10 TOP 1143 Ondansetron HCl 4 MG Q8P PRN 04/22 0600 IV Pantoprazole Sodium 40 MG BID 04/22 2200 05/10 IV 1109 Potassium Chloride 10 MEQ Q1H 05/10 1015 DC 05/10 IV 05/10 1116 1208 Sodium Chloride 1,000 ML Q20H 05/08 1245 AC 05/10 IV 0616 Total Parenteral 1 UNIT 1900 05/10 1900 AC Nutrition IV 05/11 185 Total Parenteral 1 UNIT 1900 05/09 1900 AC 05/09 Nutrition IV 05/10 [id number] Total Parenteral 1 UNIT 1900 05/08 1900 DC 05/08 Nutrition IV 05/09 [id number] Impression/Plan Impression/Problem List Impression: Respiratory * Mechanical ventilation status post tracheostomy day 4. * Ventilator Settings is -AC, TV-550, IPAP -26, RR-26, PEEP-5, Fio2 35. * There is decreased air entry on the right middle and lower lobe * 05/01/2016 Patient was having right sided pleural effusion. On ultrasound it was found,it is very mild and the radiologist says that there is more chances of pneumothorax, even If they try even for diagnostic purposes.So it was decided not to do a thoracocentesis * we will try for weaning when patient become more alert. * Patient had trachestomy on 05/06/2016 as pt is not weanable Neurology * Although patient is awake but responding to commands.We were suspecting Wernicke's encephalopathy. So we gave high dose thiamine for total 9 days( 05/02) * We did CT head which doent showed any intracranial pathology. * We also checked for serum ammonia which come back to 45 (04/29/2016),25 (05/06) * We will continue ativan drip, as patient get very agitated off Ativan. * We placed the neurology consult to get their opinion regarding encephalopathy, but patient is on ativan drip so they are not able to evaluate it. They will follow up as patient become more alert and oriented. Infectious * Ascitic fluids was growing -enterobacter cloacae and alpha strept. * We will follow ID rcms * Discussed with Dr Osuna, patient doesnt need antibiotics. * Meropenem was stopped today. * CT scan on 05/04/2016 reported persistent moderate right pleural effusion and small left pleural effusion. Persistent collapse/consolidation of right lower lobe and, to a lesser degree, left lower lobe. Subsegmental atelectasis within the superior lingula has increased. Hepatosplenomegaly. Persistent small volume of ascitic fluid in the abdomen and pelvis, and edema of the mesentery. There are no newly developing fluid collections. The drainage catheters are in stable position compared to 04/29/2016. * urine culture doesnt showed any bacterial growth. * Also we will monitor for possible fungemia but will hold off on anti-fungals for now. Hematology - * Hb-9.8 * We will suplement MultiVit, Thiamine, folic acid. Cardiology * Patient is hemodynamically stable * According to Dr Villatoro his recent troponins are negative so we will observe , if again have NSVT in future than we will revaluate. Gastroenterology * There are 3 MICHELINE drains , there was greenish fluid in the MICHELINE-1 drain after methylene blue injection. ? Opertaed site is leaking, but we will go for condervative management. * According to the surgeons, TPN, weaning trial,Nothing by mouth and NG tube decompression, GI prophylaxis, monitoring MICHELINE output. * Abdoman is soft, there are mild bowel sounds on examiantion * We will do strict Intake output Charting * We will follow GI rcms * We stopped albumin on 04/29/2016. * We started giving lactulose from NG tube but residual was >100cc.So we stopped it and started him on lactulose enemas Q6 PRN,but he had bleeding. * We placed consult for Dr Hernandez to give opinion for further management. Urology * BUN -19 Cr-0.6 * We'll monitor it regularly * We will continue IV fluids 50ml/hr * Strict I/O charting Endocrine * TSH -8.9, T4 -1.85 * It seems patient is having Sick Euthyroid syndrome. * We discussed with endocrinology. * We will repeat TFT after patient get recovered. Skin * There are multiple dressings on the skin, abdomen for drain, * PICC line is on the right-hand Alimentry * monitor electrolytes closely Diet -continue TPN as advised by dietitian. DVT prophylaxis -ALPS/ Heparin CODE STATUS-full code Problem List: 1. Sepsis 2. Peritonitis 3. Ascites Pain Ratin Tomorrow's Labs & Rationales: cbc, icu bundle, abg Plan DVT/Prophylaxis: mechanical
[2016-05-10 16:00] VITALS: BP 141/84
--- NOTE | 2016-05-10 16:00 | NUR ---
ASSUMED CARE OF PATIENT. PATIENT OPENINING EYES TO COMMAND BUT NOT FOLLOWING OTHER COMMANDS. RAÚL. MOVES ALL EXTREMITIES BLW RESTRAINTS ON DUE TO PULLING LINES AND DEVICES. LUNGS WITH COARSE BREATH SOUNDS, DECREASED IN BASES, MONITOR NSR, PULSES PRESENT IN ALL EXTREMITIES. ABD LARGE AND SOFT WITH 3 CONNIE DRAINS INTACT AND DRAINING SEROUS FLUID. STERLING INTACT DRAINING PATRICK URINE. PICC INTACT NIHARIKA, DRESSING INTACT. DR THOMAS IN TO EXAMINE PATIENT. JTUBE INSERTED BY HIM INTO L NARES, PLACEMENT XRAY TAKEN. TUBE TO BE LEFT IN PLACE AND NOT USED UNTIL FURTHER XRAY EVALUATION AND CLEARANCE RECEIVED. NG TUBE TO REMAIN IN R NARE UNTIL CLEARED FOR REMOVAL BY DR THOMAS OR SURGICAL PA. FAMILY AT BEDSIDE, INFORMED ON CHANGES. AMMONIA LEVEL IS NOW 11, LACUTLOSE EMENAS ON HOLD.
--- NOTE | 2016-05-10 16:19 | RADIOLOGY REPORT ---
EXAMINATION: XR PORTABLE CHEST CLINICAL INFORMATION: Respiratory failure. Status post intubation. COMPARISON: Portable chest x-ray 05/09/2016. TECHNIQUE: Portable view of the chest was obtained. FINDINGS: Essentially nondiagnostic examination secondary to exclusion of the bilateral upper lung nathan as well as patient body habitus and respiratory motion abnormality. A repeat chest x-ray is recommended. IMPRESSION: Nondiagnostic chest x-ray secondary to significant exclusion of the upper lung nathan and the upper mediastinum. This exam is also limited secondary to motion abnormality and patient body habitus. Recommend repeat chest x-ray.
[2016-05-10 20:00] VITALS: BP 111/65
[2016-05-11] VITALS: BP 140/70
--- NOTE | 2016-05-11 00:34 | NUR ---
PT RESTLESS AND AGITATED AT THE BEGINNING OF THE SHIFT. DILAUDID 2MG IV GIVEN. TRACH/VENT AT 30% FIO2. SATURATION 94%. LUNGS WITH BILATERAL RHONCH. TPN AND LIPIDS INFUSING ORDERED. ATIVAN GTT AT 2MG/H. CONNIE X [address] TUBE IN PLACE. NGT TO RIGHT NARE AND KEOFEED TO LEFT NARE. NGT TO LWS, DRAINING TO BROWN LIQUID. STERLING IN PLACE, POOR UO.
[2016-05-11 04:00] VITALS: BP 120/70
[2016-05-11 05:13] LABS: ABSOLUTE BASOPHIL COUNT 0 /CUMM (0.0-0.2); ABSOLUTE EOSINOPHIL COUNT 0.2 /CUMM (0.0-0.7); ABSOLUTE GRANULOCYTE CT 6.6 /CUMM (1.4-6.5); ABSOLUTE LYMPH COUNT 1.1 /CUMM (1.2-3.4); ABSOLUTE MONOCYTE COUNT 0.7 /CUMM (0.10-0.60); BASOPHIL % 0.5 % (0.0-2.0); EOSINOPHIL % 2.2 % (0-5); GRANULOCYTE % 76.4 % (42.2-75.2); HEMATOCRIT 27.5 % (42-52); MEAN CORPUSCULAR HGB 31.1 PG (27.0-31.0); MEAN CORPUSCULAR HGB CONC 33.3 G/DL (33.0-37.0); MEAN CORPUSCULAR VOLUME 93.5 FL (80.0-94.0); MEAN PLATELET VOLUME 10.5 FL (7.4-10.4); PLATELET COUNT 154 /CUMM (130-400); RED BLOOD CELL CT 2.94 /CUMM (4.70-6.10); WHITE BLOOD CELL COUNT 8.7 /CUMM (4.8-10.8)
--- NOTE | 2016-05-11 05:15 | PN- General Surgery ---
Subjective Subjective: Patient remains intubated, sedated. No attempts made for trach trials over last 24 hours. Afebrile. Remains on TPN. Ammonia level 11 yesterday. Keofeed placed into stomach yesterday in attempts to remove the NGT once tube is post- pyloric. Objective Vital Signs and I&Os Vital Signs Date Time Temp Pulse Resp B/P Pulse O2 O2 Flow FiO2 Ox Delivery Rate 05/11 0400 99.0 85 24 120/70 05/11 0400 96 Ventilator 30% 05/11 0328 30 05/11 0022 30 05/11 0000 99.4 101 22 140/70 05/11 0000 94 Ventilator 30% 05/11 0000 99.4 101 22 140/70 94 Ventilator 30% 05/10 2215 30 05/10 2000 98.9 77 20 111/65 05/10 2000 98 Ventilator 30% 05/10 1915 30 05/10 1600 99.4 100 20 141/84 05/10 1600 95 Ventilator 35% 05/10 1600 99.4 100 20 141/84 95 Ventilator 35% 05/10 1555 35 05/10 1430 35 05/10 1202 35 05/10 1200 97.4 71 20 112/60 05/10 1200 96 Ventilator 35% 05/10 0820 35 05/10 0800 98.1 96 26 130/70 05/10 0800 98.1 96 26 130/70 99 Ventilator 35% 05/10 0800 99 Ventilator 35% 05/10 0630 35 Intake & Output 05/11 0800 05/11 0000 05/10 1600 05/10 0800 05/10 0000 05/09 1600 Intake Total 1603.0 1772.0 1430.0 1414.0 2195.0 Output Total 1380 1385 1380 1030 1375 Balance 223.0 387.0 50.0 384.0 820.0 Intake, IV 583 790 539 547 760 Intake, Lipid 152.0 149.0 135.0 127.0 155.0 Intake, Oral 0 Intake, Other 0 350 Intake, 868 833 756 740 930 TPN/PPN Number 1000 1 Bowel Movements Output, 875 810 700 575 475 Drainage Output, 150 200 150 50 100 Gastric Drainage Output, Other 150 Output, Stool 100 100 200 200 Output, Urine 255 275 330 405 450 Patient 271 lb Weight Physical Exam: Gen: intubated, sedated on Ativan gtt at 20 ml/hr. Lungs: Diminished breath sounds to grisel lung bases. Abd: soft, distended, NT, +BS x4. HS drains in place, #1 still light green in color. Ext: no edema to grisel lower extremities. Palpable DP pulses grisel. HS #1:180 ml/16 hours light green tint HS #2: 850ml/16 hours serous HS #3: 755ml/16 hours serous Current Medications: Current Medications Sig/Roberto Start time Last Medication Dose Route Stop Time Status Admin Albuterol Sulfate 3 ML EVERY 4 HRS/AWAKE 05/01 2000 05/10 INH 202 Fat Emulsion 450 ML 1900 05/10 190 AC 05/10 Intravenous IV 05/11 Fat Emulsion 450 ML 1900 05/09 190 DC 05/09 Intravenous IV 05/10 Heparin Sodium 5,000 UNIT Q8 04/24 1400 05/10 (Porcine) SC 2200 Hydromorphone HCl 2 MG Q4-PRN PRN 05/04 1745 05/11 IV 0443 Insulin Aspart 0 Q8 05/08 1400 05/10 SC 2201 Lactulose 1 BOT TID 05/05 1712 05/10 [place] 1109 Lorazepam 50 MG Q24H 05/11 0015 05/11 Sodium Chloride 500 ML IV 0041 Lorazepam 50 MG Q24H 05/10 2345 DC Sodium Chloride 500 ML IV Lorazepam 100 MG Q24H 05/10 2345 CAN Dextrose/Water 1,000 ML IV Lorazepam 50 MG ONCE ONE 05/09 2130 MS 05/10 Sodium Chloride 500 ML IV 05/10 2229 0129 Nystatin 1 LESLIE Q6 05/03 1906 MS 05/10 TOP 1800 Ondansetron HCl 4 MG Q8P PRN 04/22 0600 IV Pantoprazole Sodium 40 MG BID 04/22 2200 AC 05/10 IV 2200 Potassium Chloride 10 MEQ Q1H 05/10 1015 DC 05/10 IV 05/10 1116 1208 Sodium Chloride 1,000 ML Q20H 05/08 1245 05/11 IV 0040 Total Parenteral 1 UNIT 1900 05/10 1900 05/10 Nutrition IV 05/11 185 194 Total Parenteral 1 UNIT 1900 05/09 1900 DC 05/09 Nutrition IV 05/10 [id number] Results Last 48 Hours of Labs: Laboratory Tests 05/11 05/10 05/10 0400 9822 8649 Chemistry Sodium (137 - 145 mmol/L) Pending 141 Potassium (3.5 - 5.1 mmol/L) Pending 3.9 Chloride (98 - 107 mmol/L) Pending 109 H Carbon Dioxide (22 - 30 mmol/L) Pending 25 Anion Gap (5 - 16) Pending 7 BUN (9 - 20 mg/dL) Pending 19 Creatinine (0.7 - 1.2 mg/dL) Pending 0.6 L Estimated GFR (>60 ml/min) > 60 Glucose (65 - 99 mg/dL) Pending 136 H Calcium (8.4 - 10.2 mg/dL) Pending 9.1 Phosphorus (2.5 - 4.5 mg/dL) Pending 3.7 Magnesium (1.6 - 2.3 mg/dL) Pending 2.0 Total Bilirubin (0.2 - 1.3 mg/dL) Pending 1.9 H AST (17 - 59 U/L) Pending 67 H ALT (21 - 72 U/L) Pending 45 Ammonia (9 - 30 umol/L) Pending 11 Albumin (3.5 - 5.0 g/dL) Pending 2.2 L Coagulation PT Pending INR Pending APTT Pending Hematology CBC w Diff Pending NO MAN DIFF REQ WBC (4.8 - 10.8 /CUMM) Pending 8.3 RBC (4.70 - 6.10 /CUMM) Pending 3.12 L Hgb (14.0 - 18.0 G/DL) Pending 9.8 L Hct (42 - 52 %) Pending 29.0 L MCV (80.0 - 94.0 FL) Pending 93.0 MCH (27.0 - 31.0 PG) Pending 31.4 H RDW (11.5 - 14.5 %) Pending 16.2 H Plt Count (130 - 400 /CUMM) Pending 153 MPV (7.4 - 10.4 FL) Pending 9.9 Gran % (42.2 - 75.2 %) 76.4 H Lymphocytes % (20.5 - 51.1 %) 12.9 L Monocytes % (1.7 - 9.3 %) 8.8 Eosinophils % (0 - 5 %) 1.1 Basophils % (0.0 - 2.0 %) 0.8 Absolute Granulocytes (1.4 - 6.5 /CUMM) 6.3 Absolute Lymphocytes (1.2 - 3.4 /CUMM) 1.1 L Absolute Monocytes (0.10 - 0.60 /CUMM) 0.7 H Absolute Eosinophils (0.0 - 0.7 /CUMM) 0.1 Absolute Basophils (0.0 - 0.2 /CUMM) 0.1 PUBS MCHC (33.0 - 37.0 G/DL) Pending 33.7 Assessment/Plan Assessment/Plan A: 51 year old male cirrhotic s/p perforated viscus s/p em patch with hospital course complicated by hypoxemic respiratory failure secondary to illness, encephalopathy, and malnutrition on TPN now POD #4 s/p tracheostomy placement. Plan: Continue drains to self suction. Following off IV antibiotics. Check abdominal xray this am to evaluate keofeed to see if post-pyloric. Care per primary team.
[2016-05-11 05:25] LABS: PT 16.2 SEC (9.4-12.5); PTT 38 SEC (25-37)
[2016-05-11 08:00] VITALS: BP 119/63
--- NOTE | 2016-05-11 08:11 | PN- Infect Dx ---
Subjective Subjective: Afebrile without complaints Objective Last 24 Hrs of Vital Signs/I&O Vital Signs Date Time Temp Pulse Resp B/P Pulse O2 O2 Flow FiO2 Ox Delivery Rate 05/11 0639 30 05/11 0400 99.0 85 24 120/70 05/11 0400 96 Ventilator 30% 05/11 0328 30 05/11 0022 30 05/11 0000 99.4 101 22 140/70 12 0000 94 Ventilator 30% 05/11 0000 99.4 101 22 140/70 94 Ventilator 30% 05/10 2215 30 05/10 2000 98.9 77 20 111/65 05/10 2000 98 Ventilator 30% 05/10 1915 30 05/10 1600 99.4 100 20 141/84 05/10 1600 95 Ventilator 35% 05/10 1600 99.4 100 20 141/84 95 Ventilator 35% 05/10 1555 35 05/10 1430 35 05/10 1202 35 05/10 1200 97.4 71 20 112/60 05/10 1200 96 Ventilator 35% 05/10 0820 35 Intake & Output 05/11 1600 05/11 0800 05/11 0000 Intake Total 1372 1603.0 Output Total 550 1380 Balance 822 223.0 Intake, IV 1372 583 Intake, Lipid 152.0 Intake, 868 TPN/PPN Output, 450 875 Drainage Output, 100 150 Gastric Drainage Output, Stool 100 Output, Urine 255 Patient 276 lb Weight Physical Exam Other Physical Findings: He is arousable in no acute distress on the ventilator Lungs bilateral rhonchi Heart regular rhythm with no murmur Abdomen is soft, nontender, with positive bowel sounds; CONNIE drains remain in place, with turbid fluid still noted in drain #1 Extremities no cyanosis, clubbing or edema; PICC in the right upper extremity with no inflammation at the site Ann catheter remains in place Results Last 24 Hours of Lab Results: Laboratory Tests 05/11 05/11 05/10 0605 0400 1530 Blood Gas pH (7.35 - 7.45 PH) 7.45 pCO2 (35 - 45 TORR) 34 L pO2 (80 - 100 TORR) 74 L HCO3 (21 - 28 MEQ/L) 23 ABG O2 Sat (Measured) (>96.0 %) 94.0 L P-50 (Temp Corrected) N Carboxyhemoglobin (1.5 - 5.0 %) 0.3 L O2 Concentration % .30 Respiration Rate (BPM) 20 O2 Delivery Method VENT Vent Mode A/C Expiratory Pressure (CMH2O/P) 5 Tidal Volume (CC) 550 Chemistry Sodium (137 - 145 mmol/L) 142 Potassium (3.5 - 5.1 mmol/L) 4.0 Chloride (98 - 107 mmol/L) 108 H Carbon Dioxide (22 - 30 mmol/L) 26 Anion Gap (5 - 16) 8 BUN (9 - 20 mg/dL) 23 H Creatinine (0.7 - 1.2 mg/dL) 0.7 Estimated GFR (>60 ml/min) > 60 Glucose (65 - 99 mg/dL) 126 H Calcium (8.4 - 10.2 mg/dL) 8.7 Phosphorus (2.5 - 4.5 mg/dL) 4.2 Magnesium (1.6 - 2.3 mg/dL) 2.1 Total Bilirubin (0.2 - 1.3 mg/dL) 1.7 H AST (17 - 59 U/L) 57 ALT (21 - 72 U/L) 37 Ammonia (9 - 30 umol/L) 20 11 Albumin (3.5 - 5.0 g/dL) 2.1 L Coagulation PT (9.4 - 12.5 SEC) 16.2 H INR (0.90 - 1.17) 1.55 H APTT (25 - 37 SEC) 38 H Hematology CBC w Diff NO MAN DIFF REQ WBC (4.8 - 10.8 /CUMM) 8.7 RBC (4.70 - 6.10 /CUMM) 2.94 L Hgb (14.0 - 18.0 G/DL) 9.1 L Hct (42 - 52 %) 27.5 L MCV (80.0 - 94.0 FL) 93.5 MCH (27.0 - 31.0 PG) 31.1 H RDW (11.5 - 14.5 %) 16.0 H Plt Count (130 - 400 /CUMM) 154 MPV (7.4 - 10.4 FL) 10.5 H Gran % (42.2 - 75.2 %) 76.4 H Lymphocytes % (20.5 - 51.1 %) 12.5 L Monocytes % (1.7 - 9.3 %) 8.4 Eosinophils % (0 - 5 %) 2.2 Basophils % (0.0 - 2.0 %) 0.5 Absolute Granulocytes (1.4 - 6.5 /CUMM) 6.6 H Absolute Lymphocytes (1.2 - 3.4 /CUMM) 1.1 L Absolute Monocytes (0.10 - 0.60 /CUMM) 0.7 H Absolute Eosinophils (0.0 - 0.7 /CUMM) 0.2 Absolute Basophils (0.0 - 0.2 /CUMM) 0 PUBS MCHC (33.0 - 37.0 G/DL) 33.3 Miscellaneous Phlebotomy Draw Site LEFT RADIAL Last 24 Hours of Garcia Results: No recent cultures Recent Imaging Studies: Chest x-ray May 11 clear lung nathan Assessment/Plan Impression: Stable with temperatures and white blood cell count remaining normal now off antibiotics after another one week course of Meropenem following the finding of a presumed leak from his perforated ulcer now 19 days status post laparoscopic Clint plication. His respiratory status continues to improve with no new issues noted. Suggestion: 1. Further management with regard to possible feeding tube per surgery 2. Further weaning efforts per Pulmonary 3. Continue to follow off antibiotics
--- NOTE | 2016-05-11 08:51 | RADIOLOGY REPORT ---
EXAMINATION: XR PORTABLE CHEST CLINICAL INFORMATION: Respiratory failure COMPARISON: May 10, 2016 and studies dating back to June 23, 2015 TECHNIQUE: AP Portable view of the chest was obtained. FINDINGS: Limited AP portable view of the chest with motion artifact is provided. Left costophrenic angle not included on the study. Tracheostomy tube is seen in place. Right subclavian central venous catheter seen with tip in the region of the cavoatrial junction. 2 catheters are seen traversing to the stomach. No pneumothorax appreciated. There are small lung volumes. It's difficult to evaluate however there appears to be mild bilateral basilar atelectasis. The cardiopericardial silhouette is enlarged. No evidence of pulmonary edema. IMPRESSION: Cardiomegaly without pulmonary edema. Small lung volumes with bibasilar mild disease
--- NOTE | 2016-05-11 09:11 | PN- Resident CRCU ---
Subjective HPI/CRCU Issues: Tracheostomy (05/06/2016) Perforated duodenal ulcer s/p exploratory laparoscopy with grahm plication of duodenal ulcer Secondary bacterial Peritonitis Septic shock with MODS/ MATT improving/ Lactic acidosis improving/ Alcoholic hepatitis with transaminitis Ascitis Sigmoid Diverticulitis Hypertension Hyperlipidemia Morbidly Obese 24 Hour Events: Patient was seen and examined this morning. He is not alert, awake, oriented to time place and person. No acute events reported overnight. Had T of 100.2 this evening. Heart rate in 70s to 100s, normal sinus rhythm, respiratory rate 20, blood pressure and 20/70 Ventilation settings VT 550, fiO2 30%, PEEP 5, saturating at 96%. AC 20. Ins and outs good urine output, 790 mL positive. Receiving IV fluids normal saline 50 mL per hour. On Ativan drip. Getting total parenteral nutrition. Unable to obtain history and ros given sedation. Objective Vital Signs & I&O Last 8 Hrs of Vitals and I&O: Intake & Output 05/11 1600 Intake Total 1542.0 Output Total 1175 Balance 367.0 Intake, IV 560 Intake, Lipid 149.0 Intake, Oral 0 Intake, 833 TPN/PPN Output, 500 Drainage Output, 25 Gastric Drainage Output, Stool 350 Output, Urine 300 Exam General Appearance: well developed/nourished, lethargic, obese, agitated Head: atraumatic, normal appearance Ears, Nose, Throat: has tracheostomy Neck: normal inspection, supple, tonsil edema, no midline tenderness Respiratory: normal breath sounds, chest non-tender, quiet respiration, crackles Cardiovascular: regular rate/rhythm Gastrointestinal: soft, non-tender, bowel sounds were heard Extremities: normal inspection, normal capillary refill, pedal edema Cranial Nerves: PERRL Weaning Parameters NIF: 57 Minute Volume: 16.3 Resp rate: 26 Vt: 650 Heart Rate: 100 Weaning Schedule Start Time: 1155 Minute Volume: 13.1 Resp Rate: 18 Vt: 900 Heart Rate: 109 End Time: 1345 Minute Volume: 15 Resp Rate: 22 Vt: 1050 Heart Rate: 100 Current Medications: Current Medications Sig/Rboerto Start time Last Medication Dose Route Stop Time Status Admin Albuterol Sulfate 3 ML EVERY 4 HRS/AWAKE 05/01 2000 AC 05/11 INH 1700 Fat Emulsion 450 ML 05/11 190 AC Intravenous IV 05/12 1859 Fat Emulsion 450 ML 05/10 1900 DC 05/10 Intravenous IV 05/11 1859 1948 Heparin Sodium 5,000 UNIT Q8 04/24 1400 AC 05/11 (Porcine) SC 1533 Hydromorphone HCl 2 MG Q4-PRN PRN 05/04 1745 AC 05/11 IV 1644 Insulin Aspart 0 Q8 05/08 1400 AC 05/10 SC 2201 Lactulose 1 BOT BID 05/11 2200 AC OR Lactulose 1 BOT ONCE ONE 05/11 1145 DC 05/11 OR 05/11 1146 1152 Lactulose 1 BOT TID 05/05 1712 DC 05/10 OR 1109 Lorazepam 2 MG ONE ONE 05/11 1415 DC 05/11 IV 05/11 1416 1414 Lorazepam 2 MG ONE ONE 05/11 1400 DC 05/11 IV 05/11 1401 1402 Lorazepam 50 MG Q24H 05/11 0015 AC 05/11 Sodium Chloride 500 ML IV 0041 Lorazepam 50 MG Q24H 05/10 2345 DC Sodium Chloride 500 ML IV Lorazepam 100 MG Q24H 05/10 2345 CAN Dextrose/Water 1,000 ML IV Lorazepam 50 MG ONCE ONE 05/09 2130 DC 05/10 Sodium Chloride 500 ML IV 05/10 2229 0129 Nystatin 1 LESLIE Q6 05/03 1906 DC 05/10 TOP 1800 Ondansetron HCl 4 MG Q8P PRN 04/22 0600 IV Pantoprazole Sodium 40 MG BID 04/22 2200 AC 05/11 IV 0925 Sodium Chloride 1,000 ML Q20H 05/08 1245 05/11 IV 0040 Total Parenteral 1 UNIT 1900 05/11 1900 AC Nutrition IV 05/12 1859 Total Parenteral 1 UNIT 1900 05/10 1900 ND 05/10 Nutrition IV 05/11 1859 1948 Impression/Plan Impression/Problem List Impression: Impression and Plan - Patient is awake, following the commands. He is off the levofed/fantanyl/ antibiotics. He is on low-dose Ativan drip. Patient is leaking from the operated side, surgeons are already awair, but it is making prognosis at poor side. POD-18 Ventilator -D18, tracheostomy right sided PICC line - D12, CONNIE drains-3 - D18 Foleys cathter -D18 ABG - pH-7.45, PCO2 34, PO2 74, bicarbonate 23 Respiratory * According to Dr. Arroyo, We'll keep the CVP of 12 and BP > [address] Balderas says keep SAS 2-3. * If Blood pressure remained below, then we will start patient on low-dose levofed. Currently he is off Levofed. * He is on ventilator, Ventilator Settings is -AC, TV-550, RR-26, PEEP-5, Fio2 40. * There is decreased air entry on the right middle and lower lobe * 05/01/2016 Patient was having right sided pleural effusion. On ultrasound it was found,it is very mild and the radiologist says that there is more chances of pneumothorax, even If they try even for diagnostic purposes.So it was decided not to do a thoracocentesis * we will try for weaning when patient become more alert. * Per ID: obtained sputum culture, urine culture, CT scan of the chest abdomen and pelvis, will follow results AND started meropenem 1g Q8 * Also we will monitor for possible fungemia but will hold off on anti-fungals for now. * CT scan reported persistent moderate right pleural effusion and small left pleural effusion. Persistent collapse/consolidation of right lower lobe and, to a lesser degree, left lower lobe. Subsegmental atelectasis within the superior lingula has increased. Hepatosplenomegaly. Persistent small volume of ascitic fluid in the abdomen and pelvis, and edema of the mesentery. There are no newly developing fluid collections. The drainage catheters are in stable position compared to 04/29/2016. * Will hold off on chest x-ray and ABG for tomorrow a.m. Neurology * Although patient is awake but responding to commands.We were suspecting Wernicke's encephalopathy. So we gave high dose thiamine for total 9 days * We did CT head which doent showed any intracranial pathology. * We also checked for serum ammonia which come back to 45 (04/29/2016) * Patient is also in alcohol witdrawl, so we will continue ativan drip. * Decreased frequencies of lactulose enemas to BID Infectious * Ascitic fluids is growing -enterobacter cloacae and alpha strept. * We will follow ID rcms * To rule out the source of infection. We orderd CT chest/abdomen/pelvis, which showed moderate right-sided pleural effusion with right lower lobe consolidation and collapse. * Febrile this morning , per Dr. Osuna watch off antibiotics. Hematology - * Hb-9.1 (9.8 yesterday) * We will suplement MultiVit, Thiamine, folic acid. Cardiology * Patient is hemodynamically stable Gastroenterology * there was greenish fluid in the CONNIE-1 drain. * According to the surgeons, TPN, weaning trial,Nothing by mouth and NG tube decompression, GI prophylaxis, monitoring CONNIE output. * There are 3 CONNIE drains * Abdoman is soft, there are mild bowel sounds on examiantion * We will do strict Intake output Charting * We will follow GI rcms * We stopped albumin on 04/29/2016. * Lactulose twice a day Urology * BUN - 23 Cr-0. 7 * We'll monitor it regularly * Urine output in last 24 hrs is 3555 cc * We will continue IV fluids - 50 ml/hrs * Strict I/O Endocrine * TSH -8.9, T4 -1.85 * It seems patient is having Sick Euthyroid syndrome. * We discussed with endocrinology. * We will repeat TFT after patient get recovered. Skin * There are multiple dressings on the skin, abdomen for drain, * PICC line is on the right-hand Diet -continue TPN as advised by dietitian. DVT prophylaxis -ALPS/ Heparin CODE STATUS-full code Problem List: 1. Bowel perforation 2. Alcoholic hepatitis 3. Hypomagnesemia 4. Ascites 5. Hypomagnesemia 6. Pleural effusion Pain Ratin (not obtainable due to sedation) Tomorrow's Labs & Rationales: ICU bundle (BEP, LFT, Mag), CBC Plan DVT/Prophylaxis: mechanical
--- NOTE | 2016-05-11 10:17 | PN- General Surgery ---
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 I inserted a dobhoff tube successfully yesterday as confirmed by xray and hopefully the tip will migrate into the small bowel so we can place tube feeds distal to where the perforation was in the 1st portion of the duodenum. we can ask GI or interventional radiology under flouroscopy or endoscopically to position the tip of the existing dobhoff tube into the small bowel will discuss this with them on Thursday ovealparviz poor prognosis although he has slowly made improvements. T.bili now 1.7 and ammonia level is 20, the rest of the LFT's are normal pt is being weaned from vent and the tracheostomy has been helpful and appreciated
--- NOTE | 2016-05-11 10:55 | RADIOLOGY REPORT ---
EXAMINATION: XR PORTABLE ABDOMEN CLINICAL INFORMATION: Evaluate feeding tube placement. COMPARISON: Multiple priors, most recent chest radiograph dated 05/11/[address] abdomen/pelvis dated 05/03/2016. TECHNIQUE: A single AP supine view of the right abdomen was obtained. FINDINGS: Two enteric tubes are noted with their tips overlying the left upper quadrant. A right mid abdomen surgical drain is redemonstrated, not significantly change in position when compared to the prior CT. There is a nonobstructive bowel gas pattern. The visualized osseous structures are unremarkable. IMPRESSION: Two enteric tubes in unchanged position with their tips overlying the left upper quadrant. Unchanged surgical drain. Nonobstructive bowel gas pattern.
--- NOTE | 2016-05-11 11:25 | PN- CRCU ---
Subjective HPI/Critical Care Issues: pt seen and examined remains on mechanical ventilation afebrile comfortable no pain fio2 30% Objective Current Medications: Current Medications Sig/Roberto Start time Last Medication Dose Route Stop Time Status Admin Albuterol Sulfate 3 ML EVERY 4 HRS/AWAKE 05/01 2000 AC 05/11 INH 0839 Fat Emulsion 450 ML 1900 05/10 1900 AC 05/10 Intravenous IV 05/11 1859 194 Fat Emulsion 450 ML 1900 05/09 190 DC 05/09 Intravenous IV 05/10 Heparin Sodium 5,000 UNIT Q8 04/24 1400 AC 05/11 (Porcine) SC 0621 Hydromorphone HCl 2 MG Q4-PRN PRN 05/04 1745 05/11 IV 0926 Insulin Aspart 0 Q8 05/08 1400 05/10 SC 2201 Lactulose 1 BOT TID 05/05 1712 05/10 RI 1109 Lorazepam 50 MG Q24H 05/11 0015 AC 05/11 Sodium Chloride 500 ML IV 0041 Lorazepam 50 MG Q24H 05/10 2345 DC Sodium Chloride 500 ML IV Lorazepam 100 MG Q24H 05/10 2345 CAN Dextrose/Water 1,000 ML IV Lorazepam 50 MG ONCE ONE 05/09 2130 DC 05/10 Sodium Chloride 500 ML IV 05/10 2229 0129 Nystatin 1 LESLIE Q6 05/03 1906 DC 05/10 TOP 1800 Ondansetron HCl 4 MG Q8P PRN 04/22 0600 IV Pantoprazole Sodium 40 MG BID 04/22 2200 AC 05/11 IV 0925 Sodium Chloride 1,000 ML Q20H 05/08 1245 05/11 IV 0040 Total Parenteral 1 UNIT 1900 05/10 1900 AC 05/10 Nutrition IV 05/11 1859 194 Total Parenteral 1 UNIT 1900 05/09 190 DC 05/09 Nutrition IV 05/10 Vital Signs & I&O Last 24 Hrs of Vitals and I&O: Vital Signs Date Time Temp Pulse Resp B/P Pulse O2 O2 Flow FiO2 Ox Delivery Rate 05/11 0830 30 05/11 0639 30 05/11 0400 99.0 85 24 120/70 05/11 0400 96 Ventilator 30% 05/11 0328 30 05/11 0022 30 05/11 0000 99.4 101 22 140/70 05/11 0000 94 Ventilator 30% 05/11 0000 99.4 101 22 140/70 94 Ventilator 30% 05/10 2215 30 05/10 2000 98.9 77 20 111/65 05/10 2000 98 Ventilator 30% 05/10 1915 30 05/10 1600 99.4 100 20 141/84 05/10 1600 95 Ventilator 35% 05/10 1600 99.4 100 20 141/84 95 Ventilator 35% 05/10 1555 35 05/10 1430 35 05/10 1202 35 05/10 1200 97.4 71 20 112/60 05/10 1200 96 Ventilator 35% Intake & Output 05/11 1600 05/11 0800 05/11 0000 Intake Total 1372 1603.0 Output Total 550 1380 Balance 822 223.0 Intake, IV 1372 583 Intake, Lipid 152.0 Intake, 868 TPN/PPN Output, 450 875 Drainage Output, 100 150 Gastric Drainage Output, Stool 100 Output, Urine 255 Patient 276 lb Weight Exam Other Physical Findings: gen/heent tracheostomy, mechanically ventilated cvs s1, s2 lungs transmitted abd soft, micheline drains ext no edema Results Last 24 Hrs of Lab Results: Laboratory Tests 05/11/16 0605: pH 7.45, pCO2 34 L, pO2 74 L, HCO3 23, ABG O2 Sat (Measured) 94.0 L, P-50 ( Temp Corrected) N, Carboxyhemoglobin 0.3 L, O2 Concentration % .30, Respiration Rate 20, O2 Delivery Method VENT, Vent Mode A/C, Expiratory Pressure 5, Tidal Volume 550, Phlebotomy Draw Site LEFT RADIAL 05/11/16 0400: Anion Gap 8, Estimated GFR > 60, Glucose 126 H, Calcium 8.7, Phosphorus 4.2, Magnesium 2.1, Total Bilirubin 1.7 H, AST 57, ALT 37, Ammonia 20, Albumin 2.1 L, PT 16.2 H, INR 1.55 H, APTT 38 H, CBC w Diff NO MAN DIFF REQ, RBC 2.94 L, MCV 93.5, MCH 31.1 H, RDW 16.0 H, MPV 10.5 H, Gran % 76.4 H, Lymphocytes % 12.5 L, Monocytes % 8.4, Eosinophils % 2.2, Basophils % 0.5, Absolute Granulocytes 6.6 H, Absolute Lymphocytes 1.1 L, Absolute Monocytes 0.7 H, Absolute Eosinophils 0.2, Absolute Basophils 0, PUBS MCHC 33.3 05/10/16 1530: Ammonia 11 Impression/Plan Impression/Plan Impression/Plan: Impression 50 year old man * perforated viscus s/p repair * hypoxemic respiratory failure secondary to acute illness * encephalopathy * s/p septic shock secondary to ascitic - Enterobacter/alpha strep * anemia stable * severe malnutrition * Plan Respiratory * continue mechanical ventilation, s/p trach ID * Ascitic Enterobacter/alpha strep * ID consultation appreciated * off Meropenem CVS * hemodynamic monitoring Heme * recheck coags next blood draw * monitor cbc, coags, no active bleeding Metabolic * ins/outs * creatinine, electrolytes monitoring * aaron in place * monitor LFTs Alimentary * TPN, f/u surgical recommendations Neuro * sedation as needed to maintain comfort, ativan/fentanyl/dilaudid DVT prophylaxis at all times GI prophylaxis - Protonix 40mg IV BID TTS 40 min
[2016-05-11 12:00] VITALS: BP 122/70
--- NOTE | 2016-05-11 14:39 | RADIOLOGY REPORT ---
EXAMINATION: XR PORTABLE CHEST CLINICAL INFORMATION: PICC catheter placement. COMPARISON: Multiple priors, most recent chest radiograph done 05/11/2016 at 5:26 AM. TECHNIQUE: A limited portable view of the chest is obtained. FINDINGS: A right-sided central venous catheter is noted with its tip terminating over the superior vena cava. A tracheostomy is redemonstrated with its tip approximately 4.3 cm proximal to the ching. Enteric tubes are again seen extending below the left hemidiaphragm. There is hypoexpansion of the lungs. The inferolateral portion of the left lung is not included on the film. The included lungs demonstrate mild atelectasis, which may be due to hypoexpansion. Underlying infiltrates are not excluded. No pneumothorax. IMPRESSION: Right-sided central venous catheter with its tip overlying the superior vena cava. Additional lines and tubes are unchanged in position. Limited evaluation of the lungs which show bilateral atelectasis, which may be due to hypoexpansion.
[2016-05-11 16:00] VITALS: BP 120/70
--- NOTE | 2016-05-11 16:00 | NUR ---
ASSUMED CARE OF PATIENT. PATIENT RESTLESS, OPENING EYES TO COMMAND BUT DOES NOT FOLLOW ANY COMMANDS, INTERMITTENTLY FIGHTING RESTRAINTS, MOVING ALL EXTREMITIES WITH SIGNIFICANT STRENGTH. MONITOR STACH WITHOUT ECTOPY. TRACH INTACT, SPONGES CHANGED DUE TO MOD CLEAR DRAINAGE MOUTH CARE GIVEN. LUNGS CLEAR DIMINISHED AT BASES WITH SOME SCATTERED RHONCHI, BELLY LARGE SOFT WITH POSITIVE BOWEL SOUNDS, RECTAL TUBE IN PLACE. PICC LINE DRESSING FALLING OFF REPLACED BY Carmella TOBAR RN. 3 CONNIE DRAINS INTACT DRAINING SEROUS FLUID, SKIN INTACT.
--- NOTE | 2016-05-11 17:06 | NUR ---
1325 ATIVAN GTT RUNNING AT 2MG/HR INCREASED AGITATION NOTED,INCREASED BODY MOVEMENT UNCONTROLLED KICKING FEET AND SQUIRMING IN BED, SWEATING; DIALUDID PER EMAR GIVEN; T+P BACKRUB GIVEN; UNALBE TO CALM PATIENT; 1400 2MG ATIVAN GIVEN (VIA #20 IV PLACED IN PATIENTS LEFT HAND) NIHARIKA PICC DSG IN NEED OF A CHANGE D/T INCREASED SWEATING; DR. FARRELL AND DR. ZHOU AT BEDSIDE WHOM ALSO ASSISTED WITH MUTIPLE ATTEMPS AT POSITIONING PATIENT; UNABLE TO DETERMINE IF PICC LINE MIGHT HAVE BEEN DISLOGGED D/T PATIENTS MOVEMENT,STAT XRAY ORDERED; 1415 2MG ATIVAN GIVEN; XRAY DONE POSITIVE PLACEMENT; PATIENT BEGINNING TO CALM AT 1445;
[2016-05-11 20:00] VITALS: BP 131/68
[2016-05-12] VITALS (7 sets, daily range): BP systolic 116–156; BP diastolic 60–90
--- NOTE | 2016-05-12 01:26 | NUR ---
PRESTLESS AND AGITATED. DILAUDID 2G IV GIVEN. TRACH/VENT AT 30# FIO2. SATURATION 96%. BILATERAL RHONCH HEARD. YELLOW SECRETIONS SUCTION THROUGH ETT. NGT TO LWS AND KEPFEED ON THE LEFT IN PLACE. ATIVAN GTT AT 2MG. TPN AND LIPIDS INFUSING ORDERED. CONNIE X [address] AND DRAINING TO SEROUS DRAINAGE. STERLING IN PLACE WELL, DRAINING TO PATRICK URINE ASEQUATE LYLE AT THIS TIME. RECTAL TUBE IN PLACE WELL, NO DRAINAGE NOTED AT THIS TIME.
[2016-05-12 05:05] LABS: ABSOLUTE BASOPHIL COUNT 0.1 /CUMM (0.0-0.2); ABSOLUTE EOSINOPHIL COUNT 0.1 /CUMM (0.0-0.7); ABSOLUTE GRANULOCYTE CT 7.3 /CUMM (1.4-6.5); ABSOLUTE LYMPH COUNT 1.4 /CUMM (1.2-3.4); ABSOLUTE MONOCYTE COUNT 0.9 /CUMM (0.10-0.60); BASOPHIL % 0.7 % (0.0-2.0); EOSINOPHIL % 1.5 % (0-5); GRANULOCYTE % 74.3 % (42.2-75.2); HEMATOCRIT 28.8 % (42-52); MEAN CORPUSCULAR HGB 30.9 PG (27.0-31.0); MEAN CORPUSCULAR VOLUME 93.8 FL (80.0-94.0); MEAN PLATELET VOLUME 10.5 FL (7.4-10.4); PLATELET COUNT 146 /CUMM (130-400); RBC DISTRIBUTION WIDTH 15.4 % (11.5-14.5); RED BLOOD CELL CT 3.07 /CUMM (4.70-6.10); WHITE BLOOD CELL COUNT 9.8 /CUMM (4.8-10.8)
--- NOTE | 2016-05-12 05:49 | PN- Student ---
ARIADNA QUICK 05/12/16 0548: Subjective Subjective: s/p dobhoff placement Patient remains sedated, vented via tracheostomy, agitated. Afebrile. Remains on TPN. Dobhoff placed Thursday with X-ray confirming placement. 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 Objective Objective: Temp: 99.2, HR 101, RR: 28, BP: 156/90, O2: 98% - Urine: 595mL - STool: 600mL - Drainage: 1525mL #1: 25mL #2: 225mL #3: 325mL Gen: intubated, sedated. Appears agitated Cardiac: S1 S2 present Lungs: coarse breath sounds bilaterally. Abd: soft, distended, NT, hypoactive bowel sounds. HS drains in place, #1 on left is still green-yellow in color. Ext: no significant bilateral lower extremity edema. 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 - Daily x-rays to confirm dobhoff tube placement if post-pyloric - DVT prophylaxis: ALPs - Care per primary team ANGELA BRUNO 05/12/16 0601: Assessment/Plan Assessment: patient seen and above note reviewed agree with above
--- NOTE | 2016-05-12 08:05 | PN- Resident CRCU ---
See Addendum Subjective HPI/CRCU Issues: Patient is a 50 y/o Male, with a significant past medical history of hypertension, hyperlipidemia, GERD, diverticulosis, degenerative joint disease, avascular necrosis status post hip replacement, fatty liver disease, alcohol abuse presented with chronic alcohol abuse, nausea, vomting, abd distension and pain which got worse so he presented to ED on 04/21/2016. On Evaluation CT scan showed pneumoperitoneum, moderate ascites.On examination the abdomen was distended and tender to palpation , so diagnostic paracentesis was done which showed WBC 9504, RBC 2156. Because of the perforation, It seems that patient developed the secondary bacterial peritonitis. We took surgical consultation. The next couple of hours patient went into septicemia and shock. So he was given IV fluids and prophylactic antibiotics including ceftriaxone metronidazole and vancomycin. We catheterized the patient. Despite of these measures his blood pressure going down , so we took surgical consultation and plan for emergent surgery. Meantime, we intubated the patient and put him on mechanical ventilation(assist control mode, TV-500, respiratory rate 28, PEEP 5, FiO2 100%), triple-lumen catheter was placed in the right side of jugular vein. Patients blood pressure was continuosly going down, so we started him on Levothroid/vasopressin. We also started him on fentanyl and propofol drip. The culture of the ascites fluid came back positive for gram-negative. We took the consult from infectious disease specialist/Abdullahi Osuna MD. He advised to change ceftriaxone to ceftazidime and advised to wait for sensitivities report. Patient went to surgery on 04/22/2016. In postop, His blood pressure was 119/62. He is improving after surgery. When blood pressure was maintained to normal, we stopped all the pressures and also slowly stopped sedation. We tried weaning multiple times but he failed.It was difficult to wean the patient's so it was decided to do a tracheostomy on 05/06/2016 and keep the patient on ventilator. In between the patient started having fever of 100.2, awaited. CT scan of chest/ abdomen/pelvis on 04/29/2016 which showed moderate right-sided pleural effusion and consolidation and collapse of right lower lobe. On 05/02/2016. Patient was diagnosed as having continuous leak from his perforated ulcer, which was confirmed by the methylene Blue, which came out of JP1 drain. According to surgery. There is no any active intervention was required. So patient was treated conservatively. CRCU issues - Tracheostomy (05/06/2016) Perforated duodenal ulcer s/p exploratory laparoscopy with grahm plication of duodenal ulcer Secondary bacterial Peritonitis Septic shock with MODS/ MATT improving/ Lactic acidosis improving/ Alcoholic hepatitis with transaminitis Ascitis Sigmoid Diverticulitis Hypertension Hyperlipidemia Morbidly Obese 24 Hour Events: Patient had fever overnight. Maximum was 100.6. Today temprature is 102. Advised to take all cultures and give 1 gm of tylenol. Objective Vital Signs & I&O Last 8 Hrs of Vitals and I&O: Maximum temperature 100.6 Pulse 108 Respiratory rate 24 Blood pressure 124/73 Total intake 1505 Total output 3110 Exam General Appearance: well developed/nourished, mild distress, obese Head: atraumatic, normal appearance Ears, Nose, Throat: normal pharynx, normal ENT inspection, hearing grossly normal Neck: normal inspection, supple Respiratory: chest non-tender, quiet respiration, crackles, wheezing Cardiovascular: regular rate/rhythm, edema Gastrointestinal: soft, non-tender, distention Extremities: normal inspection, normal capillary refill, pedal edema Weaning Parameters NIF: 41 Minute Volume: 5.76 Resp rate: 19 Vt: 300 Heart Rate: 93 Weaning Schedule Start Time: 1900 Minute Volume: 9.32 Resp Rate: 15 Vt: 680 Heart Rate: 94 End Time: 2100 Minute Volume: 14.4 Resp Rate: 20 Vt: 720 Heart Rate: 111 Current Medications: Current Medications Sig/Roberto Start time Last Medication Dose Route Stop Time Status Admin Acetaminophen 1,000 MG ONCE ONE 05/12 1215 DC 05/12 N/A 1 UNIT IV 05/12 1229 1230 Albuterol Sulfate 3 ML EVERY 4 HRS/AWAKE 05/01 2000 AC 05/12 INH 1614 Fat Emulsion 450 ML 1900 05/12 1900 AC Intravenous IV 05/13 1859 Fat Emulsion 450 ML 1900 05/11 190 AC 05/11 Intravenous IV 05/12 185 1936 Fat Emulsion 450 ML 0 05/10 190 DC 05/10 Intravenous IV 05/11 185 1948 Heparin Sodium 5,000 UNIT Q8 04/24 1400 AC 05/12 (Porcine) SC 1415 Hydromorphone HCl 2 MG Q4-PRN PRN 05/04 1745 05/12 IV 1225 Insulin Aspart 0 Q8 05/08 1400 AC 05/12 SC 1415 Lactulose 1 BOT BID 05/11 2200 AC 05/12 MT 0828 Lorazepam 50 MG Q24H 05/12 0745 AC 05/12 Sodium Chloride 500 ML IV 0930 Lorazepam 6 MG .STK-MED ONE 05/12 0740 DC IM 05/12 0741 Lorazepam 50 MG Q24H 05/11 0015 DC 05/12 Sodium Chloride 500 ML IV 0541 Ondansetron HCl 4 MG Q8P PRN 04/22 0600 AC IV Pantoprazole Sodium 40 MG BID 04/22 2200 AC 05/12 IV 0831 Sodium Chloride 1,000 ML .Q20H 05/12 0945 AC 05/12 IV 1048 Sodium Chloride 1,000 ML Q20H 05/08 1245 DC 05/12 IV 0005 Total Parenteral 1 UNIT 1900 05/12 1900 AC Nutrition IV 05/13 1859 Total Parenteral 1 UNIT 1900 05/11 1900 AC 05/11 Nutrition IV 05/12 185 1936 Total Parenteral 1 UNIT 1900 05/10 1900 DC 05/10 Nutrition IV 05/11 185 1948 Impression/Plan Impression/Problem List Impression: Impression and Plan - Patient is on low-dose Ativan drip. Patient is leaking from the operated side, surgeons are already awair, but it is making prognosis at poor side. He had tracheastomy on 05/06/2016. POD-18 Ventilator -D18 right sided PICC line - D11, CONNIE drains-3 - D18 Foleys cathter -D18 ABG - pH-7.41, PCO2 32, PO2 78, bicarbonate 20 Respiratory * According to Dr. Arroyo, We'll keep the CVP of 12 and BP > [address] Balderas says keep SAS 3-4. * He is on ventilator, Ventilator Settings is -AC, TV-550, IPAP -24, RR-24, PEEP -5, Fio2 40. * There is decreased air entry on the right middle and lower lobe * 05/01/2016 Patient was having right sided pleural effusion. On ultrasound it was found,it is very mild and the radiologist says that there is more chances of pneumothorax, even If they try even for diagnostic purposes.So it was decided not to do a thoracocentesis * we will continue to try for weaning. * Patient had trachestomy on 05/06/2016 as pt was not weanable Neurology * Although patient is awake but responding to commands.We were suspecting Wernicke's encephalopathy. So we gave high dose thiamine for total 9 days( 05/02) * We did CT head which doent showed any intracranial pathology. * We also checked for serum ammonia which come back to 45 (04/29/2016),25 (05/06),20(05/12/2016) * We will continue to slowly taper ativan drip,as patient get very agitated off Ativan. * We placed the neurology consult to get their opinion regarding encephalopathy, but patient is on ativan drip so they are not able to evaluate it. They will follow up as patient become more alert and oriented. Infectious * Ascitic fluids was growing -enterobacter cloacae and alpha strept. * We will follow ID rcms * Discussed with Dr Osuna, patient doesnt need antibiotics. We stopped Meopenem 1g iv 8hrly, as there is no focus and patient already had 7 days course of antibiotics on 04/30/2016. * Inj meropenem 1g Q8 was restarted on 05/03/2016. * on 04/22/2016 To rule out the source of infection. We orderd CT chest/abdomen/ pelvis, which showed moderate right-sided pleural effusion with right lower lobe consolidation and collapse. * CT scan on 05/04/2016 reported persistent moderate right pleural effusion and small left pleural effusion. Persistent collapse/consolidation of right lower lobe and, to a lesser degree, left lower lobe. Subsegmental atelectasis within the superior lingula has increased. Hepatosplenomegaly. Persistent small volume of ascitic fluid in the abdomen and pelvis, and edema of the mesentery. There are no newly developing fluid collections. The drainage catheters are in stable position compared to 04/29/2016. * urine culture didnt showed any bacterial growth. * Also we will monitor for possible fungemia but will hold off on anti-fungals for now. * Patient started having fever on 05/12/2016 patient had T-102.3, so we sent blood cultures, urine cultures, sputum culture and follow the results and decided for antibiotic accordingly. We gave 1gm IV tylenol today. Hematology - * Hb-9.5. * We will suplement MultiVit, Thiamine, folic acid. Cardiology * Patient is hemodynamically stable * According to Dr Villatoro his recent troponins are negative so we will observe , if again have NSVT in future than we will revaluate. Gastroenterology * There are 3 CONNIE drains , there was greenish fluid in the CONNIE-1 drain after methylene blue injection. ? Opertaed site is leaking, but we will go for condervative management. * According to the surgeons, TPN, weaning trial,Nothing by mouth and NG tube decompression, GI prophylaxis, monitoring CONNIE output. * Abdoman is soft, there are bowel sounds on examiantion * We will do strict Intake output Charting * We will follow GI rcms * We stopped albumin on 04/29/2016. * We started giving lactulose from NG tube but residual was >100cc.So we stopped it and started him on lactulose enemas Q6 PRN. * We placed consult for Dr Hernandez to give opinion for further management. Urology * BUN -24, Cr-0.7 * We'll monitor it regularly * We will continue IV fluids changed to 1/2 NS and 50ml/hr * Strict I/O charting Endocrine * TSH -8.9, T4 -1.85 * It seems patient is having Sick Euthyroid syndrome. * We discussed with endocrinology. * We will repeat TFT after patient get recovered. Skin * There are multiple dressings on the skin, abdomen for drain, * PICC line is on the right-hand Alimentry * Mg is 2.0. * Sodium -147, so we decrease the sodium in TPN and also change normal saline to half-normal saline. Diet -continue TPN as advised by dietitian. DVT prophylaxis -ALPS/ Heparin CODE STATUS-full code Problem List: 1. Pleural effusion 2. MATT (acute kidney injury) 3. Peritonitis 4. Perforation bowel 5. At risk for ventilator-associated event 6. Alcoholic hepatitis 7. EtOH dependence Pain Ratin Tomorrow's Labs & Rationales: CBC,ICU BUNDLE Plan DVT/Prophylaxis: mechanical
--- NOTE | 2016-05-12 09:13 | PN- CRCU ---
Subjective HPI/Critical Care Issues: The patient remains restless. He does however appear more awake. He tolerated CPAP yesterday for 2.5 hours. He remains on Ativan at 2 mg per hour. His sodium level is elevated this morning. His MAXIMUM TEMPERATURE is 100.6. There were no overnight events reported. Objective Current Medications: Current Medications Sig/Roberto Start time Last Medication Dose Route Stop Time Status Admin Albuterol Sulfate 3 ML EVERY 4 HRS/AWAKE 05/01 2000 AC 05/12 INH 0835 Fat Emulsion 450 ML 1900 05/12 190 AC Intravenous IV 05/13 185 Fat Emulsion 450 ML 1900 05/11 190 AC 05/11 Intravenous IV 05/12 185 193 Fat Emulsion 450 ML 1900 05/10 190 DC 05/10 Intravenous IV 05/11 1859 194 Heparin Sodium 5,000 UNIT Q8 04/24 1400 AC 05/12 (Porcine) SC 0538 Hydromorphone HCl 2 MG Q4-PRN PRN 05/04 1745 05/12 IV 0831 Insulin Aspart 0 Q8 05/08 1400 AC 05/11 SC 2201 Lactulose 1 BOT BID 05/11 2200 AC 05/12 NV 0828 Lactulose 1 BOT ONCE ONE 05/11 1145 DC 05/11 NV 05/11 1146 1152 Lactulose 1 BOT TID 05/05 1712 DC 05/10 NV 1109 Lorazepam 50 MG Q24H 05/12 0745 AC Sodium Chloride 500 ML IV Lorazepam 2 MG ONE ONE 05/11 1415 DC 05/11 IV 05/11 1416 1414 Lorazepam 2 MG ONE ONE 05/11 1400 DC 05/11 IV 05/11 1401 1402 Lorazepam 50 MG Q24H 05/11 0015 DC 05/12 Sodium Chloride 500 ML IV 0541 Ondansetron HCl 4 MG Q8P PRN 04/22 0600 AC IV Pantoprazole Sodium 40 MG BID 04/22 2200 AC 05/12 IV 0831 Sodium Chloride 1,000 ML Q20H 05/08 1245 AC 05/12 IV 0005 Total Parenteral 1 UNIT 1900 05/12 1900 AC Nutrition IV 05/13 185 Total Parenteral 1 UNIT 1900 05/11 1900 AC 05/11 Nutrition IV 05/12 185 193 Total Parenteral 1 UNIT 1900 05/10 1900 DC 05/10 Nutrition IV 05/11 Vital Signs & I&O Last 24 Hrs of Vitals and I&O: Vital Signs Date Time Temp Pulse Resp B/P Pulse O2 O2 Flow FiO2 Ox Delivery Rate 05/12 0840 30 05/12 0610 30 05/12 0400 99.2 101 28 156/90 05/12 0400 98 Ventilator 30% 05/12 0226 30 05/12 0044 30 05/12 0000 99.0 109 21 154/80 05/12 0000 94 Ventilator 30% 05/11 2212 30 05/11 2000 100.6 111 14 131/68 05/11 2000 98 Ventilator 30% 05/11 1900 30 05/11 1635 30 05/11 1600 100.2 108 20 120/70 05/11 1600 96 Ventilator 30% 05/11 1600 100.2 108 20 120/70 96 Ventilator 30% 05/11 1200 99.1 88 20 122/70 05/11 1200 96 Ventilator 30% 05/11 1149 30 Intake & Output 05/12 1600 05/12 0800 05/12 0000 Intake Total 1505 1544.0 Output Total 815 1120 Balance 690 424.0 Intake, IV 1505 560 Intake, Lipid 150.0 Intake, Oral 0 Intake, Other 0 Intake, 834 TPN/PPN Output, 450 575 Drainage Output, 25 Gastric Drainage Output, Stool 250 Output, Urine 340 295 Patient 283 lb Weight Exam General Appearance: intubated, intermittently agitated, moving all extremities Head: atraumatic Neck: supple, trach in place Respiratory: no respiratory distress, few ronchi, lungs expand symmetrically, trachea is midline Cardiovascular: regular rate/rhythm, tachycardia, S1 and S2 heard Abdomen: CONNIE drains in place, distended Extremities: warm and dry Skin: no cyanosis or edema Impression/Plan Impression/Plan Impression/Plan: 1. Status post laparoscopic Clint patch for perforated duodenal ulcer with peritonitis. 2. Respiratory failure s/p tracheostomy placement. 3. 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 4. Ongoing encephalopathy - hepatic? metabolic? 5. Anemia without active blood loss. 6. Deep tissue injury - right scapula area, improving. 7. Severe malnutrition - on TPN. 8. Electrolyte abnormalities. Recommendations: * Continue pressure support trials. Attempt trach mask trials if able. * Continue to wean Ativan down to off if able. * Continue lactulose enemas. Will attempt lactulose via Dobbhoff tube is in the proper location. * Follow off antibiotics for now, will follow-up ID recommendations. * Change to half normal saline at 50 ML per hour. * Continue TPN. * MVI, thiamine, folate to continue in TPN. * Continue ventilator bundle with DVT and GI prophylaxis. * Skin care protocol, off load deep tissue injury area. * Out of bed to chair daily. * Continue all supportive care. TTS 40
--- NOTE | 2016-05-12 09:34 | RADIOLOGY REPORT ---
EXAMINATION: XR ABDOMEN CLINICAL INDICATION: Evaluate feeding tube position. On tube feeding. COMPARISON: KUB dated 05/11/2016. TECHNIQUE: AP supine portable view of the abdomen. FINDINGS: Feeding tube is again seen coiled in the stomach with tip projected cranially at the GE junction. An enteric tube is in place as well with tip projected in the left upper quadrant, presumably in the gastric fundus. Positioning of both tubes is unchanged. Right upper quadrant drain is partially imaged. Bowel gas pattern grossly unremarkable. Exam is overall limited and was primarily performed for feeding tube positioning. IMPRESSION: 1. No interval change in positioning of the feeding tube with tip projected cranially at the GE junction. This should be repositioned and redirected into the third/fourth portion of the duodenum. 2. No change in positioning of enteric tube with tip projected over the left upper quadrant, presumably the gastric fundus.
--- NOTE | 2016-05-12 10:51 | NUR ---
0800: RECEIVED PT IN BED. ALERT, DOES NOT FOLLOW COMMANDS. TRACH IN PLACE #9, VENT SETTINGS AC-20 550/30%/5. LUNGS RHONCHI THROUGHOUT. MOUTH CARE PROVIDED, SUCTIONED. ST ON MONITOR, LOW GRADE TEMP 100.0 VIA TEMPORAL ARTERY. MANUAL B/P 140/88, AUTO CUFF READING 161/67. ABDOMEN D/S HYPOACTIVE BOWEL SOUNDS. NGT TO RT NARE AT 60CM, RETAPED. KO FEED TUBE TO LEFT NARE IN PLACE. RECTAL TUBE TO BED SIDE DRAINAGE, LACTULOSE ENEMA INSTILLED MUCH POSSIBLE, LACTULOSE NOTED TO BE COMING OUT RIGHT AROUND RECTAL TUBE BEING INSTILLED. RECTAL TUBE CLAMPED AT THIS TIME. 3 CONNIE DRAINS TO ABDOMEN, 2 LAP SITES, ONE WITH AN OSTOMY BAG OVER IT TO CATCH DRAINAGE. STERLING IN PLACE DRAINING PATRICK COLORED URINE. NIHARIKA PICC LINE IN PLACE, DRESSING REINFORCED. TPN AND LIPIDS RUNNING VIA WHITE PORT. NS @ 50 RUNNING VIA RYAN PORT AND ATIVAN GTT AT 2MG/HR VIA RED PORT. BIOPATCH IN PLACE. +BLOOD RETURN. WRIST RESTRAINTS IN PLACE. PT SQUIRMING ALL OVER BED, PULLING AT WRIST RESTRAINTS, KICKING LEGS. IV DILAUDID GIVEN. ALPS IN PLACE. TURNED AND REPOSITIONED, BACK RUB GIVEN, LOTION APPLIED, SKIN INTACT. NO EDEMA NOTED. WILL MONITOR.
--- NOTE | 2016-05-12 11:35 | NUR ---
PROVIDED INCONTINENT CARE, LOOSE STOOL COMING OUT AROUND RECTAL TUBE, BACK CARE PROVIDED, TURNED AND REPOSITIONED.
--- NOTE | 2016-05-12 11:39 | NUR ---
RECTAL TEMP 102.3, MD CEBALLOS MADE AWARE
--- NOTE | 2016-05-12 11:46 | PN- Infect Dx ---
Subjective Subjective: MAXIMUM TEMPERATURE 100.6. He apparently tolerated CPAP for 2 1/2 hours yesterday. Objective Last 24 Hrs of Vital Signs/I&O Vital Signs Date Time Temp Pulse Resp B/P Pulse O2 O2 Flow FiO2 Ox Delivery Rate 05/12 0840 30 05/12 0800 97 Ventilator 30% 05/12 0800 100.0 106 19 140/88 97 T Piece 30% 05/12 0610 30 05/12 0400 99.2 101 28 156/90 05/12 0400 98 Ventilator 30% 05/12 0226 30 05/12 0044 30 05/12 0000 99.0 109 21 154/80 05/12 0000 94 Ventilator 30% 05/11 2212 30 05/11 2000 100.6 111 14 131/68 05/11 2000 98 Ventilator 30% 05/11 1900 30 05/11 1635 30 05/11 1600 100.2 108 20 120/70 05/11 1600 96 Ventilator 30% 05/11 1600 100.2 108 20 120/70 96 Ventilator 30% 05/11 1200 99.1 88 20 122/70 05/11 1200 96 Ventilator 30% 05/11 1149 30 Intake & Output 05/12 1600 05/12 0800 05/12 0000 Intake Total 1505 1544.0 Output Total 815 1120 Balance 690 424.0 Intake, IV 1505 560 Intake, Lipid 150.0 Intake, Oral 0 Intake, Other 0 Intake, 834 TPN/PPN Output, 450 575 Drainage Output, 25 Gastric Drainage Output, Stool 250 Output, Urine 340 295 Patient 283 lb Weight Physical Exam Other Physical Findings: He is awake and alert, but agitated on the ventilator Lungs scattered rhonchi bilaterally Heart regular rhythm with no murmur Abdomen is distended, CONNIE drains remain in place, with cloudy fluid from #1 Extremities no cyanosis, clubbing or edema; PICC in the right upper extremity with no inflammation at the site Ann catheter remains in place Results Last 24 Hours of Lab Results: Laboratory Tests 05/12 347 Chemistry Sodium (137 - 145 mmol/L) 147 H Potassium (3.5 - 5.1 mmol/L) 3.8 Chloride (98 - 107 mmol/L) 112 H Carbon Dioxide (22 - 30 mmol/L) 26 Anion Gap (5 - 16) 9 BUN (9 - 20 mg/dL) 24 H Creatinine (0.7 - 1.2 mg/dL) 0.7 Estimated GFR (>60 ml/min) > 60 Glucose (65 - 99 mg/dL) 122 H Calcium (8.4 - 10.2 mg/dL) 8.7 Phosphorus (2.5 - 4.5 mg/dL) 4.5 Magnesium (1.6 - 2.3 mg/dL) 2.0 Total Bilirubin (0.2 - 1.3 mg/dL) 1.8 H AST (17 - 59 U/L) 63 H ALT (21 - 72 U/L) 41 Albumin (3.5 - 5.0 g/dL) 2.2 L Hematology CBC w Diff NO MAN DIFF REQ WBC (4.8 - 10.8 /CUMM) 9.8 RBC (4.70 - 6.10 /CUMM) 3.07 L Hgb (14.0 - 18.0 G/DL) 9.5 L Hct (42 - 52 %) 28.8 L MCV (80.0 - 94.0 FL) 93.8 MCH (27.0 - 31.0 PG) 30.9 RDW (11.5 - 14.5 %) 15.4 H Plt Count (130 - 400 /CUMM) 146 MPV (7.4 - 10.4 FL) 10.5 H Gran % (42.2 - 75.2 %) 74.3 Lymphocytes % (20.5 - 51.1 %) 13.9 L Monocytes % (1.7 - 9.3 %) 9.6 H Eosinophils % (0 - 5 %) 1.5 Basophils % (0.0 - 2.0 %) 0.7 Absolute Granulocytes (1.4 - 6.5 /CUMM) 7.3 H Absolute Lymphocytes (1.2 - 3.4 /CUMM) 1.4 Absolute Monocytes (0.10 - 0.60 /CUMM) 0.9 H Absolute Eosinophils (0.0 - 0.7 /CUMM) 0.1 Absolute Basophils (0.0 - 0.2 /CUMM) 0.1 PUBS MCHC (33.0 - 37.0 G/DL) 33.0 Last 24 Hours of Garcia Results: No recent cultures Assessment/Plan Impression: Low-grade fevers with white blood cell count slightly elevated, though still normal, now off antibiotics for the past 2 days and am concerned about the possibility of a persistent/residual infection within the abdomen now 20 days status post laparoscopic Clint plication, complicated by a presumed duodenal leak with the suspicion of the formation of a controlled fistula noted. He does not have any other obvious source of infection, though he is at increased risk for line sepsis, ventilator associated pneumonia and Ann catheter associated UTI. His respiratory status continues to improve with no other issues noted. Suggestion: 1. Consider repeat CT of the abdomen and pelvis (will discuss with Surgery) 2. Repeat blood cultures 2, urine culture and sputum culture 3. Further weaning efforts per Pulmonary 4. Continue to follow off antibiotics pending above
--- NOTE | 2016-05-12 12:29 | NUR ---
3 SETS OF BLOOD CULTURES DRAWN. ONE FROM PICC LINE BY THIS RN WITH IV NURSE JOHN AT BEDSIDE. 2 SETS DRAWN PERIPHERALLY. URINE CULTURE AND SPUTUM CULTURE SENT WELL. IV TYLENOL INFUSING. FAN ON IN ROOM. ROOM TEMP TURNED DOWN. IV DILAUDID GIVEN AT THIS TIME PT HAS A FLACC OF 6, SAS 5. PT EXREMELY RESTLESS. WILL MONITOR.
--- NOTE | 2016-05-12 13:46 | NUR ---
PT TO HAVE ABDOMINAL CT SCAN WITH ORAL CONTRAST THRU NGT, THIS RN IS CONCERNED FOR ASPIRATION OF CONTRAST SINCE PT DOES NOT STAY SITTING UP RIGHT IN BED. PT IS CONSTANTLY SQUIRMING ALL OVER THE BED AND SCOOCHING DOWN TOWARD THE BOTTOM OF THE BED. MD CEBALLOS MADE AWARE OF THIS CONCERN, PER ATTEMPT TO GET IN MUCH CONTRAST PT CAN TOLERATE. CONTRAST TO BE STARTED AT 1430, CT SCAN SCHEDULED FOR 1630. WILL MONITOR.
--- NOTE | 2016-05-12 14:43 | NUR ---
PT TURNED AND REPOSITIONED. BOOSTED TO TOP OF THE BED AND SAT UP AT 45 DEGREE ANGLE, PO CONTRAST STARTED VIA NGT TUBE. NGT CLAMPED AT THIS TIME.
--- NOTE | 2016-05-12 15:01 | NUR ---
RECTAL TEMP RECHECK 98.7 DEGREES AT THIS TIME.
--- NOTE | 2016-05-12 15:30 | NUR ---
1/2 OF 2ND BOTTLE OF CONTRAST INSTILLED AT THIS TIME VIA NGT, PT TOLERATED WELL. HOB REMAINS AT [address] DE[address]. [address] SCAN SCHEDULED FOR 1629.
--- NOTE | 2016-05-12 19:07 | CT SCAN REPORT ---
EXAMINATION: CT CHEST, ABDOMEN AND PELVIS WITH CONTRAST CLINICAL INFORMATION: Presumptive Dx: S/P DUODENAL ULCER REPAIR, ? ABD ABSCESS Signs \T\ Symptoms: FEVER COMPARISON: CT dated 05/03/2016. TECHNIQUE: Multidetector volumetric imaging was performed from the thoracic inlet through the pubic symphysis following administration of intravenous contrast material. A total of 95 mL Optiray 320 intravenous contrast material was administered. Rectal contrast material was also administered. Sagittal and coronal reformatted images were obtained on the technologist's workstation. DOSE: 1692.4 mGy-cm FINDINGS: -CHEST- LUNG: As compared to prior chest CT, there has been resolution of the pleural effusions with mild persistent linear atelectasis in the lower lobes bilaterally, right greater than left, and, to a lesser extent, in the posterior aspect of the right upper lobe. There is a small clustered focus of airspace opacities in the posterior segment of the right upper lobe (image 17 and 18/41 of series 3) which may represent a small focus of residual or recurrent consolidation. There is no pulmonary consolidation is identified. Central airways are clear. Endotracheal tube terminates 4.3 cm from the ching. MEDIASTINUM: Heart remains mildly enlarged. No pericardial effusion. Gastric decompression tube is present within the esophagus, extending into the stomach. No adenopathy. Thoracic aorta is normal in caliber. Minimal calcific atherosclerosis. PERICARDIUM/PLEURA: No significant residual effusions. CHEST WALL/AXILLA: Mild gynecomastia. Right-sided PICC line terminates at the cavoatrial junction. -ABDOMEN/PELVIS- LIVER, GALLBLADDER, BILIARY TREE: Hepatomegaly is again noted. Liver is normal in attenuation without significant nodularity. No biliary ductal dilatation. No focal lesions are identified. There is a small amount of fluid around the gallbladder which is likely postsurgical in nature. The CONNIE drain extends into the inferior aspect of the gallbladder fossa. PANCREAS: Unremarkable. SPLEEN: Unremarkable. ADRENAL GLANDS: Unremarkable. KIDNEYS AND URETERS: The kidneys are normal in size, shape, and attenuation. No hydronephrosis, hydroureter, or calculi seen. No perinephric stranding. BLADDER: Bladder is decompressed. There is a Ann catheter terminating within the bladder. GASTROINTESTINAL TRACT: Dobbhoff in gastric decompression tube terminating in the body of the stomach. There is a nondilated bowel gas pattern. Diverticulosis is present throughout the colon. No acute diverticulitis. No intraperitoneal leakage of contrast material. CONNIE drains are present within the right lower quadrant and right upper quadrant (gallbladder fossa and superficial to the right lobe of the liver). There is a small volume of perihepatic ascites, increased in volume as compared to the prior study. Trace amount of fluid is present within the pelvis. No significant intraperitoneal free air. Edema within the upper abdomen around the duodenum is similar to prior. Mesenteric edema is less pronounced. ABDOMINAL WALL: No significant hernia is appreciated. LYMPHOVASCULAR STRUCTURES: No adenopathy. Calcific atherosclerosis is present in the abdominal aorta and iliac arteries. No aneurysmal dilatation.. PELVIC VISCERA: Unremarkable. OSSEUS STRUCTURES: Left total hip arthroplasty is evident. No evidence of complications. There is mild degenerative disc disease in the the thoracic spine. Lumbar spine is relatively well-preserved. No acute osseous abnormalities. IMPRESSION: 1. Resolution of the previously seen pleural effusions with mild residual atelectasis. A small focus of residual airspace disease in the posterior aspect of the right upper lobe is compatible with residual or recurrent consolidation. 2. Hepatosplenomegaly, unchanged. 3. Small volume of perihepatic ascites, increased as compared to prior. Overall mesenteric edema is slightly improved. No evidence of perforation. CONNIE drains are unchanged in position. 4. Colonic diverticulosis without evidence of acute diverticulitis. No abscesses are identified.
--- NOTE | 2016-05-12 19:32 | NUR ---
PT TO AND FROM CT SCAN WITH TRANSPORT, THIS RN AND RESPIRATORY, NO ISSUES DURING TRAVEL. PT BACK TO ROOM, TURNED AND REPOSITIONED. BOOSTED. RECTAL TUBE BAG CHANGED. VSS.
--- NOTE | 2016-05-12 20:23 | Event Note ---
Event Note Event Note: Talked to Patient Sister Cory over phone and updated about the CT ABD/Pelvis and chest results.
[2016-05-13] VITALS: BP 106/56; BP 118/62
[2016-05-13 04:00] VITALS: BP 130/60
[2016-05-13 05:12] LABS: ABSOLUTE BASOPHIL COUNT 0.1 /CUMM (0.0-0.2); ABSOLUTE EOSINOPHIL COUNT 0.2 /CUMM (0.0-0.7); ABSOLUTE GRANULOCYTE CT 7.4 /CUMM (1.4-6.5); ABSOLUTE LYMPH COUNT 1.2 /CUMM (1.2-3.4); ABSOLUTE MONOCYTE COUNT 0.7 /CUMM (0.10-0.60); BASOPHIL % 0.7 % (0.0-2.0); GRANULOCYTE % 76.9 % (42.2-75.2); HEMATOCRIT 28.6 % (42-52); MEAN CORPUSCULAR HGB 31.3 PG (27.0-31.0); MEAN CORPUSCULAR HGB CONC 33.4 G/DL (33.0-37.0); MEAN CORPUSCULAR VOLUME 93.7 FL (80.0-94.0); MEAN PLATELET VOLUME 10.3 FL (7.4-10.4); PLATELET COUNT 127 /CUMM (130-400); RBC DISTRIBUTION WIDTH 16.1 % (11.5-14.5); RED BLOOD CELL CT 3.06 /CUMM (4.70-6.10); WHITE BLOOD CELL COUNT 9.6 /CUMM (4.8-10.8)
--- NOTE | 2016-05-13 05:43 | PN- Student ---
ARIADNA QUICK 05/13/16 0538: Subjective Subjective: s/p dobhoff placement day 3 Patient remains sedated, vented via tracheostomy, agitated. Remains on TPN. Dobhoff placed Thursday with X-ray confirming placement. 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 Abdominal X-Ray yesterday showed enteric tube is still in gastric fundus, feeding tube at GE junction. CT of abdomen/pelvis showed improvement in overall mesenteric edema. Patient spiked to maximum of 102.3 yesterday, meropenem restarted per ID. Has been receiving lactulose via enemas since discovery of CONNIE leak. Nurse reported patient had a run of VTs at 2AM. Patient had multiple PVCs while I was examining him this morning. Assessment/Plan Consult Acknowledgment - Thank you for your consult request. Objective Objective: Temp: 98.1, HR: 80, RR: 20, BP: 106/56 last 24 hours: Urine: 1265mL Stool: 500mL NGT: 225mL. draining orange/yellow content Last shift: CONNIE 1: 0mL, CONNIE 2: 400mL, CONNIE 3: 550mL. All draining yellow content Gen: intubated, sedated. Agitated Cardiac: S1 S2 present. Tachycardiac Lungs: coarse breath sounds bilaterally. Abd: soft, distended, NT, hypoactive bowel sounds. HS drains in place. Majority of abdomen covered in dressing. Ext: no significant bilateral lower extremity edema. 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 - Daily x-rays to confirm dobhoff tube placement if post-pyloric. Consider IR or GI to re-position dobhoff tube into small bowel. - DVT prophylaxis: ALPs, heparin - On Meropenum per ID, awaiting nino culture results - Consider cardiology consult for PVCs, VTs. Check lytes. - Care per primary team WINNIE PARADA 05/13/16 0536: Subjective Subjective: AGREE WITH ABOVE WILL DISCUSS IMAGING WITH ATTENDING FOR PLACEMENT OF FEEDING TUBE Assessment/Plan Assessment/Plan SEE BELOW Consult Acknowledgment - Thank you for your consult request.
--- NOTE | 2016-05-13 07:34 | PN- Resident CRCU ---
Subjective HPI/CRCU Issues: Patient seen and examined. He is seen lying flat in bed with bilateral soft upper extremity restraints in place in addition to being maintained on a tracheostomy for ventilatory support. He appears mildly agitated and is not oriented and responsive to questioning. He does not appear to be in any acute distress. Review of systems is unobtainable. No overnight events reported. 24 Hour Events: Normal sinus rhythm on telemetry Objective Vital Signs & I&O Last 8 Hrs of Vitals and I&O: Vital signs: -MAXIMUM TEMPERATURE 102.3 -Heart rate 83-113 -Respiratory rate 20-26 -Systolic blood pressure 106-140 -Diastolic blood pressure 56-72 -Oxygen saturation 94-97 via tracheostomy on ventilator, FiO2 30% Exam General Appearance: well developed/nourished, no apparent distress, awake, anxious, obese Other Physical Findings: General - Well Developed, Well Nourished obese male in no acute distress in bilateral upper extremity soft restraints HEENT - NCAT, PERRL, EOMI, anicteric sclera, white frothy material seen in mouth with thick white material coating his tongue, tracheostomy in place without any surrounding erythema/drainage Cardio - S1, S2 w/o murmurs/gallops/rubs Resp -vesicular breath sounds, diminished air movement in bibasilar airfields GI - Non-tender, non-distended abdomen, Bowel sounds present, surgical incision sites draining clear liquid with overlying ostomy bags for drainage, no surrounding erythema - aaron in place draining red/yellow clear urine Neuro -uncomfortable appearing, not oriented to person/place/time, agitated, CN II - XII grossly intact Weaning Parameters NIF: 47 Minute Volume: 8.2 Resp rate: 18 Vt: 579 Heart Rate: 98 Weaning Schedule Start Time: 1010 Minute Volume: 8.2 Resp Rate: 18 Vt: 579 Heart Rate: 98 End Time: 1205 Minute Volume: 9.9 Resp Rate: 26 Vt: 358 Heart Rate: 100 Current Medications: Current Medications Sig/Roberto Start time Last Medication Dose Route Stop Time Status Admin Acetaminophen 1,000 MG ONCE ONE 05/12 1215 DC 05/12 N/A 1 UNIT IV 05/12 1229 1230 Albuterol Sulfate 3 ML EVERY 4 HRS/AWAKE 05/01 2000 AC 05/13 INH 0817 Fat Emulsion 450 ML 1900 05/12 1900 AC 05/12 Intravenous IV 05/13 Fat Emulsion 450 ML 1900 05/11 1900 DC 05/11 Intravenous IV 05/12 Heparin Sodium 5,000 UNIT Q8 04/24 1400 AC 05/13 (Porcine) SC 0545 Hydromorphone HCl 2 MG Q4-PRN PRN 05/04 1745 AC 05/13 IV 0841 Insulin Aspart 0 Q8 05/08 1400 AC 05/13 SC 0547 Lactulose 1 BOT BID 05/11 2200 AC 05/12 SD 2220 Lorazepam 2 MG ONE ONE 05/12 1745 DC 05/12 IV 05/12 174 1741 Lorazepam 50 MG Q24H 05/12 0745 AC 05/13 Sodium Chloride 500 ML IV 0121 Meropenem 1 GM IQ8 05/13 0000 AC 05/13 IV 0805 Nystatin 5 ML 4 TIMES/DAY 05/13 1000 AC PO Ondansetron HCl 4 MG Q8P PRN 04/22 0600 AC IV Pantoprazole Sodium 40 MG BID 04/22 2200 AC 05/12 IV 2221 Sodium Chloride 1,000 ML .Q20H 05/12 0945 AC 05/13 IV 0805 Sodium Chloride 1,000 ML Q20H 05/08 1245 DC 05/12 IV 0005 Total Parenteral 1 UNIT 05/12 190 AC 05/12 Nutrition IV 05/13 Total Parenteral 1 UNIT 1900 05/11 1900 DC 05/11 Nutrition IV 05/12 Impression/Plan Impression/Problem List Impression: Patient remains agitated while being maintained on an Ativan drip. Psych consult placed today to determine further possible interventions. An ostomy bag placed on surgical site was seen to be draining a reported yellow/brown opaque fluid this morning. Tracheostomy is still in place and patient appears to be tolerating it well as he is not in respiratory distress. Patient was restarted on meropenem yesterday for a temperature of 102.3. Patient will be reconsidered for additional antibiotic therapy should he not defervesces/continue to remain afebrile over the next 48 hours. Gastrointestinal: Patient admitted for perforated duodenal ulcer complicated with peritonitis. Currently status post status post surgical repair. Surgical sites continue to drain a clear liquid, however are without any surrounding erythema or induration. -NG tube -Nothing by mouth -TPN nutrition -Protonix 40 mg IV twice a day Infectious disease: Patient has continued to have oscillating periods of fever with subsequent defervescence. Meropenem was restarted yesterday and patient has remained afebrile. There is some consideration for potential disseminated candidal infection however interventions to address this will be deferred for 48 hours to assess patient's response to current antibiotic regimen. Patient was found to have oral candidiasis this morning for which nystatin swish and swallow was ordered. -Meropenem 1 g IV every 8 hours -Nystatin swish and swallow Respiratory: Patient is saturating well supplemental oxygen provided via tracheostomy with 30 % O2. -TRC neb treatments -Supplemental oxygen via tracheostomy Neurology: Patient continues to remain disoriented and agitated. -Lactulose one bottle SD twice a day -Lorazepam 50 mg IV daily Cardiovascular: History of hypertension and hyperlipidemia, currently stable. -Telemetry cardiac monitoring -Normal sinus rhythm overnight Endocrine: Continue to monitor Accu-Cheks 3 times a day before meals/at bedtime. -NovoLog sliding scale insulin Hematology: Stable hemoglobin and hematocrit Integumentary: Patient has multiple surgical site incisions on his abdomen that are continuing to drain without any new signs of infection. No apparent new skin breakdown. -Normal saline at 50 mL per hour Pain plan: -Hydromorphone 2 mg IV every 4 hours as needed for pain 7-10 Diet-nothing by mouth, continue TPN nutrition as above DVT prophylaxis-subcutaneous heparin CODE STATUS-full code Problem List: 1. Peritonitis Pain Ratin Tomorrow's Labs & Rationales: CBC BMP Plan DVT/Prophylaxis: mechanical
[2016-05-13 08:00] VITALS: BP 110/60
--- NOTE | 2016-05-13 08:53 | PN- CRCU ---
Subjective HPI/Critical Care Issues: The patient's mental status slowly appears to be improving. He is following simple commands once again today. He was agitated overnight. Yesterday, the patient had several elevated temperatures up to 102.3. He was given Tylenol with improvement. Because of the patient's symptoms, he underwent a CT scan of the chest abdomen and pelvis once again. This study demonstrated resolution of previously seen pleural effusions with mild residual atelectasis. There is a small focus of consolidation in the right upper lobe. Hepatosplenomegaly was unchanged. There was a small volume of her hepatic ascites, increased compared to prior studies. His enteric edema was slightly improved. Colonic diverticulosis was seen without acute diverticulitis. There are no abscesses seen. Overnight, his MAXIMUM TEMPERATURE was 99.5. The patient's white blood cell count is 9.6, without bands. Repeat cultures from 05/12 are negative so far. Weaning was unable to be done last evening due to the patient requiring sedation for the CT scan. Objective Current Medications: Current Medications Sig/Roberto Start time Last Medication Dose Route Stop Time Status Admin Acetaminophen 1,000 MG ONCE ONE 05/12 1215 DC 05/12 N/A 1 UNIT IV 05/12 1229 1230 Albuterol Sulfate 3 ML EVERY 4 HRS/AWAKE 05/01 2000 AC 05/13 INH 0817 Fat Emulsion 450 ML 1900 05/12 1900 AC 05/12 Intravenous IV 05/13 1859 1939 Fat Emulsion 450 ML 1900 05/11 1900 DC 05/11 Intravenous IV 05/12 1859 1936 Heparin Sodium 5,000 UNIT Q8 04/24 1400 AC 05/13 (Porcine) SC 0545 Hydromorphone HCl 2 MG Q4-PRN PRN 05/04 1745 AC 05/13 IV 0435 Insulin Aspart 0 Q8 05/08 1400 AC 05/13 SC 0547 Lactulose 1 BOT BID 05/11 2200 AC 05/12 AL 2220 Lorazepam 2 MG ONE ONE 05/12 1745 DC 05/12 IV 05/12 1746 1741 Lorazepam 50 MG Q24H 05/12 0745 AC 05/13 Sodium Chloride 500 ML IV 0121 Meropenem 1 GM IQ8 05/13 0000 AC 05/13 IV 0805 Ondansetron HCl 4 MG Q8P PRN 04/22 0600 AC IV Pantoprazole Sodium 40 MG BID 04/22 2200 AC 05/12 IV 2221 Sodium Chloride 1,000 ML .Q20H 05/12 0945 AC 05/13 IV 0805 Sodium Chloride 1,000 ML Q20H 05/08 1245 DC 05/12 IV 0005 Total Parenteral 1 UNIT 05/12 AC 05/12 Nutrition IV 05/13 Total Parenteral 1 UNIT 05/11 190 DC 05/11 Nutrition IV 05/12 Vital Signs & I&O Last 24 Hrs of Vitals and I&O: Vital Signs Date Time Temp Pulse Resp B/P Pulse O2 O2 Flow FiO2 Ox Delivery Rate 05/13 0805 30 05/13 0553 30 05/13 0400 99.5 102 21 130/60 05/13 0400 97 Ventilator 30% 05/13 0330 30 05/13 0126 30 05/13 0000 98.1 80 20 106/56 05/13 0000 95 Ventilator 30% 05/13 0000 98.1 80 20 118/62 95 Ventilator 30% 05/12 2210 30 05/125 97.7 102 22 119/72 05/12 2125 98 Ventilator 30% 05/12 2057 97.7 102 22 119/72 05/12 1940 30 05/12 1615 30 05/12 1600 98.0 83 20 118/60 05/12 1600 97 Ventilator 30% 05/12 1600 98.0 83 20 116/60 97 Ventilator 30% 05/12 1503 30 05/12 1320 98.9 05/12 1230 102.3 05/12 1219 30 05/12 1200 102.3 113 26 140/60 05/12 1200 94 Ventilator 30% 05/12 1200 102.3 113 26 140/60 94 Ventilator 30% 05/12 1139 102.3 05/12 0840 30 Intake & Output 05/13 1600 05/13 0800 05/13 0000 Intake Total 1337.7 1773.0 Output Total 1140 2100 Balance 197.7 -327.0 Intake, IV 496.3 730 Intake, Lipid 128.4 136.0 Intake, 713 907 TPN/PPN Output, 640 950 Drainage Output, 100 75 Gastric Drainage Output, Stool 500 Output, Urine 400 575 Exam General Appearance: intubated, intermittently agitated, moving all extremities Head: atraumatic Neck: supple, trach in place Respiratory: no respiratory distress, few ronchi, lungs expand symmetrically, trachea is midline Cardiovascular: regular rate/rhythm, tachycardia, S1 and S2 heard Abdomen: CONNIE drains in place, distended but improved overall Extremities: warm and dry Skin: no cyanosis or edema Results Last 24 Hrs of Lab Results: Laboratory Tests 05/13/16 0428: Anion Gap 8, Estimated GFR > 60, Glucose 123 H, Calcium 8.7, Phosphorus 3.9, Magnesium 2.0, Total Bilirubin 2.2 H, AST 52, ALT 40, Albumin 2.3 L, CBC w Diff NO MAN DIFF REQ, RBC 3.06 L, MCV 93.7, MCH 31.3 H, RDW 16.1 H, MPV 10.3, Gran % 76.9 H, Lymphocytes % 12.7 L, Monocytes % 7.7, Eosinophils % 2.0, Basophils % 0.7, Absolute Granulocytes 7.4 H, Absolute Lymphocytes 1.2, Absolute Monocytes 0.7 H, Absolute Eosinophils 0.2, Absolute Basophils 0.1, PUBS MCHC 33.4 Last 24 Hrs of Micro Results: Negative so far. Diagnostic Data CT Scan Findings: 1. Resolution of the previously seen pleural effusions with mild residual atelectasis. A small focus of residual airspace disease in the posterior aspect of the right upper lobe is compatible with residual or recurrent consolidation. 2. Hepatosplenomegaly, unchanged. 3. Small volume of perihepatic ascites, increased as compared to prior. Overall mesenteric edema is slightly improved. No evidence of perforation. CONNIE drains are unchanged in position. 4. Colonic diverticulosis without evidence of acute diverticulitis. No abscesses are identified. Impression/Plan Impression/Plan Impression/Plan: 1. Status post laparoscopic Clint patch for perforated duodenal ulcer with peritonitis. 2. Respiratory failure s/p tracheostomy placement. 3. 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 4. Ongoing encephalopathy - hepatic? metabolic? 5. Anemia without active blood loss. 6. Deep tissue injury - right scapula area, improving. 7. Severe malnutrition - on TPN. 8. Electrolyte abnormalities. 9. New, mild thrombocytopenia. 10. Fever, now improved, cultures negative so far, no clear evidence of infection on CT scan. The source of the fever is unclear. Need to consider other sources of infection such as sinusitis, etc. Recommendations: * Continue pressure support trials. Attempt trach mask trials if able. * Continue to wean Ativan down to off if able. * Continue lactulose enemas. Will attempt lactulose via Dobbhoff tube is in the proper location. * Please check an abdominal x-ray today to evaluate the position of the Dobbhoff. * Continue meropenem. * ? Sinus x-ray/CT - will need to discuss with ID. * Change to half normal saline at 50 ML per hour. * Continue TPN. * MVI, thiamine, folate to continue in TPN. * Continue ventilator bundle with DVT and GI prophylaxis. Will continue SQ Heparin for now, and will monitor * Skin care protocol, off load deep tissue injury area. * Out of bed to chair daily. * Give breaks from Alps periodically as per family request. * Continue all supportive care. * Family updated at the bedside. TTS 60
--- NOTE | 2016-05-13 09:15 | RADIOLOGY REPORT ---
EXAMINATION: XR PORTABLE CHEST CLINICAL INFORMATION: On ventilator COMPARISON: CT scan performed previous day and chest radiograph performed 05/11/2016 TECHNIQUE: Portable view of the chest was obtained. FINDINGS: Tracheostomy tube is midline, terminating 5.5 cm above ching. Feeding tube terminates in region of stomach fundus. There is also an NG tube present, not clearly seen below level of the lower mediastinum. The heart remains normal size. There is mild bilateral hypoexpansion without congestion or consolidation. No effusion. IMPRESSION: No acute pulmonary finding.
--- NOTE | 2016-05-13 10:57 | PN- Infect Dx ---
Subjective Subjective: MAXIMUM TEMPERATURE 102.3 with temperatures decreased since yesterday afternoon. He offers no complaints at this time. Objective Last 24 Hrs of Vital Signs/I&O Vital Signs Date Time Temp Pulse Resp B/P Pulse O2 O2 Flow FiO2 Ox Delivery Rate 05/13 0805 30 05/13 0800 97.7 83 20 110/60 95 Ventilator 30% 05/13 0800 95 Ventilator 30% 05/13 0553 30 05/13 0400 99.5 102 21 130/60 05/13 0400 97 Ventilator 30% 05/13 0330 30 05/13 0126 30 05/13 0000 98.1 80 20 106/56 05/13 0000 95 Ventilator 30% 05/13 0000 98.1 80 20 118/62 95 Ventilator 30% 05/12 2210 30 05/12 2125 97.7 102 22 119/72 05/12 2125 98 Ventilator 30% 05/12 2057 97.7 102 22 119/72 05/12 1940 30 05/12 1615 30 05/12 1600 98.0 83 20 118/60 05/12 1600 97 Ventilator 30% 05/12 1600 98.0 83 20 116/60 97 Ventilator 30% 05/12 1503 30 05/12 1320 98.9 05/12 1230 102.3 05/12 1219 30 05/12 1200 102.3 113 26 140/60 05/12 1200 94 Ventilator 30% 05/12 1200 102.3 113 26 140/60 94 Ventilator 30% 05/12 1139 102.3 Intake & Output 05/13 1600 05/13 0800 05/13 0000 Intake Total 1337.7 1773.0 Output Total 1140 2100 Balance 197.7 -327.0 Intake, IV 496.3 730 Intake, Lipid 128.4 136.0 Intake, 713 907 TPN/PPN Output, 640 950 Drainage Output, 100 75 Gastric Drainage Output, Stool 500 Output, Urine 400 575 Patient 286 lb Weight Physical Exam Other Physical Findings: He is awake and appears alert on the ventilator in no acute distress HEENT NG tube and Dobbhoff tube in place Lungs bilateral rhonchi Heart regular rhythm with no murmur Abdomen is distended, nontender with positive bowel sounds; CONNIE drains remain in place, with turbid fluid in drain #1 Extremities no cyanosis, clubbing or edema; PICC in the right upper extremity with no inflammation at the site Ann catheter remains in place Results Last 24 Hours of Lab Results: Laboratory Tests 05/138 Chemistry Sodium (137 - 145 mmol/L) 145 Potassium (3.5 - 5.1 mmol/L) 3.8 Chloride (98 - 107 mmol/L) 111 H Carbon Dioxide (22 - 30 mmol/L) 26 Anion Gap (5 - 16) 8 BUN (9 - 20 mg/dL) 21 H Creatinine (0.7 - 1.2 mg/dL) 0.7 Estimated GFR (>60 ml/min) > 60 Glucose (65 - 99 mg/dL) 123 H Calcium (8.4 - 10.2 mg/dL) 8.7 Phosphorus (2.5 - 4.5 mg/dL) 3.9 Magnesium (1.6 - 2.3 mg/dL) 2.0 Total Bilirubin (0.2 - 1.3 mg/dL) 2.2 H AST (17 - 59 U/L) 52 ALT (21 - 72 U/L) 40 Albumin (3.5 - 5.0 g/dL) 2.3 L Hematology CBC w Diff NO MAN DIFF REQ WBC (4.8 - 10.8 /CUMM) 9.6 RBC (4.70 - 6.10 /CUMM) 3.06 L Hgb (14.0 - 18.0 G/DL) 9.6 L Hct (42 - 52 %) 28.6 L MCV (80.0 - 94.0 FL) 93.7 MCH (27.0 - 31.0 PG) 31.3 H RDW (11.5 - 14.5 %) 16.1 H Plt Count (130 - 400 /CUMM) 127 L MPV (7.4 - 10.4 FL) 10.3 Gran % (42.2 - 75.2 %) 76.9 H Lymphocytes % (20.5 - 51.1 %) 12.7 L Monocytes % (1.7 - 9.3 %) 7.7 Eosinophils % (0 - 5 %) 2.0 Basophils % (0.0 - 2.0 %) 0.7 Absolute Granulocytes (1.4 - 6.5 /CUMM) 7.4 H Absolute Lymphocytes (1.2 - 3.4 /CUMM) 1.2 Absolute Monocytes (0.10 - 0.60 /CUMM) 0.7 H Absolute Eosinophils (0.0 - 0.7 /CUMM) 0.2 Absolute Basophils (0.0 - 0.2 /CUMM) 0.1 PUBS MCHC (33.0 - 37.0 G/DL) 33.4 Last 24 Hours of Garcia Results: Blood cultures 3 May 12 negative Urine culture May 12 negative Sputum culture May 12 positive for mold Recent Imaging Studies: CT of the chest, abdomen and pelvis with oral and IV contrast May 12 reveals resolution of the previously seen pleural effusions with mild residual atelectasis; a small focus of residual airspace disease in the posterior aspect of the right upper lobe; small volume of perihepatic ascites, increased from previous study; overall mesenteric edema has improved Chest x-ray May 13 negative Assessment/Plan Impression: Improved from yesterday, with resolution of fever and with no further increase in his white blood cell count now back on Meropenem, restarted yesterday empirically for concern of ongoing duodenal leak, though the CT scan yesterday did not demonstrate this or any other evidence for infection now 3 weeks status post laparoscopic Clint plication. He does not have any other obvious source of infection, with repeat blood and urine cultures negative, and with sputum culture again positive for mold, which presumably represents colonization. Suggestion: 1. Follow-up recent cultures 2. Further management of his presumed leak and decision regarding feeding per Surgery 3. Further weaning efforts per Pulmonary 4. Continue Meropenem pending above
--- NOTE | 2016-05-13 11:08 | NUR ---
@1000-PT PLACED ON CPAP TRIAL, PRESSURE SUPPORT 6. O2SAT 94-95%. LACTULOSE ENEMA ADMINISTERED AT THIS TIME VIA FLEXISEAL, CLAMPED. NYSTATIN S/S ADMINISTERED PER ORDER DUE TO THRUSH NOTED ON TONGUE DURING AM ASSESSMENT. CONT TO MONITOR CLOSELY. PLAN FOR ERIN TO CHAIR LATER THIS AM.
--- NOTE | 2016-05-13 11:38 | NUR ---
@0800-PT OPENS EYES TO VERBAL STIM. VERY RESTLESS IN BED. CONT ON ATIVAN GTT AT 2MG/HR. CONT ON BILAT WRISTS FOR ATTEMPTS TO PULL AT LINES/TUBES. PUPILS EQUAL AND REACTIVE. FOLLOWS MIN COMMANDS OF OPENS MOUTH AND WIGGLES TOES. PERIODS OF EXTREME AGITATION FOLLOWS BY PERIODS OF RESTING COMF. PSYCH CONSULT ORD BY HOUSESTAFF FOR DIRECTION ON ASSISTING WITH KEEPING PT CALM AND TITRATING OFF ATIVAN GTT. DILAUDID PRN. CONT ON VENT VIA TRACH-#9. TRACH CARE PROVIDED THIS AM AND INNER CANNULA CHANGED VIA RT. NEBS Q4. MOD AMTS OF BLOODY THICK SECRETIONS NOTED AROUND SUTURED TRACH SITE. NEW DSG APPLIED. NO CHANGE TO SETTINGS AT THIS TIME. NSR HR 80S. BP STABLE. NGT NOTED TO R NARES AT 60CM, TAPE REPLACED. NGT TO LWS WITH YELLOW GREEN DRAINAGE NOTED. KEOFEED NOTED TO L NARES AND CLAMPED. FLEXISEAL IN PLACE TO GRAVTIY DRAINAGE. LACTULOSE ENEMA BID. STERLING IN PLACE WITH APTRICK/ORANGE URINE NOTED, IN ADEQUATE AMTS. CONNIE SITES X 3 CONT WITH SERROUS DRAINAGE. OSTOMY BAG REMOVED OFF OF LAP STAPLE SITE TO R ABD AND DSG APPLIED. NIHARIKA PICC TRIPLE NOTED. TPN/LIPIDS CONT TO INFUSE. 1.2NS AT 50ML/HR. IV MEROPENUM Q8HRS. WILL OBTAIN ORDER FOR NYSTATIN S/S FOR THRUSH NOTED TO TONGUE. MOUTH CARE PROVIDED AT THIS TIME.
--- NOTE | 2016-05-13 12:36 | NUR ---
@1200-AFTER INC CARE PROVIDED, PT HOYERED OOB TO LUIS ANTONIO CHAIR. PT CONT TO BE RESTLESS AND AGITATED. MOTHER NOW AT BEDSIDE AND UPDATED ON POC. PT TO HAVE ABD XRAY WHEN HOYERED BACK TO BED. PT BACK TO ASSIST CONTROL. WAS ON CPAP TRIAL, PRESSURE SUPPORT 6 FOR APPROX 2 HRS. PLAN FOR TRACH MASK THIS AFTERNOON.
--- NOTE | 2016-05-13 14:46 | Cons- Psychiatry ---
Psychiatric Consult Date of Consult: 05/13/16 Reason for Consult: "Patient on Ativan drip, very restless" History of Present Illness: HPI: 51-year-old male presents to [facility] emergency department on April 22 with abdominal pain. 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 Since that time he has been intubated and sedated, Trach placed on 05/06. He has remained confused and intermittently agitated. Per nursing report he's been quite delirious and has had great difficulty following simple commands. At times he will open his eyes and can track but at others in unable to. At present he is on an Ativan drip 2 mg/h. PMH: Please see the H&P for a complete listing Hypertension, hyperlipidemia, GERD, diverticulosis, degenerative joint disease, avascular necrosis status post hip replacement, fatty liver disease Past Psych History: Per mother, none. Family Psych History: Unobtained Substance History Per his mother the patient is a heavy drinker. Per his chart he has been drinking more than 1 pint of vodka daily for many years. He was recently fired from his job and drank heavily for 7 days straight prior to hospitalization. 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 He has 4 adult children. Abuse/Trauma: Unobtained Current Home Psychotropic Medications: None Current Hospital Psychotropic Medications: Ativan drip 2 mg an hour Allergies: Coded Allergies: NO KNOWN ALLERGIES (08/27/12) Current Medications: Med Albuterol Sulfate 3 ML INH EVERY 4 HRS/AWAKE 05/01/16 2000 Fat Emulsion Intravenous 450 ML IV 1900 05/12/16 1900 Fat Emulsion Intravenous 450 ML IV 1900 05/13/16 1900 Heparin Sodium (Porcine) 5,000 UNIT SC Q8 04/24/16 1400 Hydromorphone HCl 2 MG IV Q4-PRN PRN 05/04/16 1745 Insulin Aspart SC Q8 05/08/16 1400 Lactulose 1 BOT [place] BID 05/11/16 2200 Lorazepam 50 MG IV Q24H 05/12/16 0745 Sodium Chloride 500 ML Meropenem 1 GM IV IQ8 05/13/16 0000 Nystatin 5 ML PO 4 TIMES/DAY 05/13/16 1000 Ondansetron HCl 4 MG IV Q8P PRN 04/22/16 0600 Pantoprazole Sodium 40 MG IV BID 04/22/16 2200 Sodium Chloride 1,000 ML IV .Q20H 05/12/16 0945 Total Parenteral Nutrition 1 UNIT IV 1900 05/12/16 1900 Total Parenteral Nutrition 1 UNIT IV 1900 05/13/16 1900 Past History Past Medical History Neurological: vertigo EENT: NONE Cardiovascular: hypertension, HYPERLIPIDEMIA Respiratory: NONE Gastrointestinal: GERD, DIVERTICULOSIS Hepatic: "FATTY LIVER" Renal: NONE Musculoskeletal: chronic back pain, degen joint disease Psychiatric: alcohol dependence, anxiety Endocrine: NONE Blood Disorders: NONE Cancer(s): NONE CRIMINAL INTELLIGENCE ANALYST/Reproductive: NONE Past Surgical History Surgical History: appendectomy, hip replacement (left), B/L shoulder surgeries LEFT WRIST SURGERY Psychosocial History Strengths/Capabilities: Intelligent Physical Limitations (Interventions): Present delirium Psychiatric Treatment History Psych Treatment Psychiatric Treatment No Diagnosis: Alcohol use disorder Risk Factors: chronic/serious med cond., high anxiety/distress, substance abuse, male Substance Use/Abuse History Drug Use/Abuse Substances Used/Abused Yes (ETOH 1+ vodka daily) Substance Abuse Treatment Substance Abuse Treatment Past Substance Abuse [place] No Assessment/Plan Mental Status Orientation: Confused Affect: Flat Speech: Clanging (Aphasic) Mental Status Exam: 51-year-old male attempted to interview in critical care unit. Patient is unable to participate in interview due to current altered mental status. He is currently in soft wrist restraints. Some psychomotor agitation noted with patient struggling against restraints. He appears obtunded. He does open eyes spontaneously when his name is said but does not track at this time. Appears to be oriented to himself, not place date or situation. He responds when his mother asks if he is in pain by nodding head slightly but does not respond to this video game script writer's questions. Per his mother's report he has a history of claustrophobia. She states she has not been verbal since the night before his surgery, 04/22. Lab Results: Laboratory Tests 05/13/16 0428: Anion Gap 8, Estimated GFR > 60, Glucose 123 H, Calcium 8.7, Phosphorus 3.9, Magnesium 2.0, Total Bilirubin 2.2 H, Direct Bilirubin 1.2 H, AST 52, ALT 40, Alkaline Phosphatase 125, Total Protein 5.2 L, Albumin 2.3 L, Lipase Pending, CBC w Diff NO MAN DIFF REQ, RBC 3.06 L, MCV 93.7, MCH 31.3 H, RDW 16.1 H, MPV 10.3, Gran % 76.9 H, Lymphocytes % 12.7 L, Monocytes % 7.7, Eosinophils % 2.0, Basophils % 0.7, Absolute Granulocytes 7.4 H, Absolute Lymphocytes 1.2, Absolute Monocytes 0.7 H, Absolute Eosinophils 0.2, Absolute Basophils 0.1, PUBS MCHC 33.4 05/12/16 0347: Anion Gap 9, Estimated GFR > 60, Glucose 122 H, Calcium 8.7, Phosphorus 4.5, Magnesium 2.0, Total Bilirubin 1.8 H, AST 63 H, ALT 41, Albumin 2.2 L, CBC w Diff NO MAN DIFF REQ, RBC 3.07 L, MCV 93.8, MCH 30.9, RDW 15.4 H, MPV 10.5 H, Gran % 74.3, Lymphocytes % 13.9 L, Monocytes % 9.6 H, Eosinophils % 1.5, Basophils % 0.7, Absolute Granulocytes 7.3 H, Absolute Lymphocytes 1.4, Absolute Monocytes 0.9 H, Absolute Eosinophils 0.1, Absolute Basophils 0.1, PUBS MCHC 33.0 05/11/16 0605: pH 7.45, pCO2 34 L, pO2 74 L, HCO3 23, ABG O2 Sat (Measured) 94.0 L, P-50 ( Temp Corrected) N, Carboxyhemoglobin 0.3 L, O2 Concentration % .30, Respiration Rate 20, O2 Delivery Method VENT, Vent Mode A/C, Expiratory Pressure 5, Tidal Volume 550, Phlebotomy Draw Site LEFT RADIAL 05/11/16 0400: Anion Gap 8, Estimated GFR > 60, Glucose 126 H, Calcium 8.7, Phosphorus 4.2, Magnesium 2.1, Total Bilirubin 1.7 H, AST 57, ALT 37, Ammonia 20, Albumin 2.1 L, PT 16.2 H, INR 1.55 H, APTT 38 H, CBC w Diff NO MAN DIFF REQ, RBC 2.94 L, MCV 93.5, MCH 31.1 H, RDW 16.0 H, MPV 10.5 H, Gran % 76.4 H, Lymphocytes % 12.5 L, Monocytes % 8.4, Eosinophils % 2.2, Basophils % 0.5, Absolute Granulocytes 6.6 H, Absolute Lymphocytes 1.1 L, Absolute Monocytes 0.7 H, Absolute Eosinophils 0.2, Absolute Basophils 0, PUBS MCHC 33.3 05/10/16 1530: Ammonia 11 Microbiology 05/12 1220 LOWER RESP: Respiratory Culture - RES MOLD 05/12 1220 LOWER RESP: Gram Stain - RES 05/12 1217 URINE ROUT: Urine Culture - RES 05/12 1210 BLOOD: Blood Culture - RES 05/12 1210 BLOOD: Blood Culture - RES 05/12 1210 BLOOD: Blood Culture - RES Diffential Diagnosis: Delirium due to multiple etiologies Alcohol use disorder severe Impression: Hector Garcia he is a 51-year-old male with a history of alcohol use disorder currently hospitalized for duodenal ulcer perforated, peritonitis, and stage IV cirrhosis with ascites. At present he presents as obtunded and confused with intermittent agitation. His current mental status is likely multifactorial due to medication and infectious process. CIWA scores for the past 24 hours were between 9 and 5 primarily for anxiety, agitation, and disorientation. He would benefit from medication to help with agitation so that lorazepam can be further tapered. Provisional Treatment Plan: 1. Please start haloperidol 1 mg every 6 hours when necessary for agitation. Please utilize IM formulation for dangerous agitation. 2. Please repeat EKG and continue to monitor. Hold Haldol for QTc above 475ms. 3. Please continue to monitor electrolytes, with close attention to magnesium and potassium. 4. Please draw LFTs and lipase. 5. Please start melatonin 10 mg daily at bedtime. 6. Please continue vitamin supplementation including thiamine, B 12, & folate 7. Please continue to avoid benzodiazepines, opioid analgesics, and meds with strong anticholinergic properties as much as possible to prevent further confusion. 8. Please initiate the following nonpharmacologic interventions: -Avoid nursing and medical procedures during sleep hours whenever possible - Cluster at night interventions that must be completed as much as possible to minimize sleep disruption - Decrease noise patient area during sleeping hours - Reduce lighting at night - Ensure patient has any sensory aids close by that he regularly uses 9. Please consider decreasing Ativan by 10% daily, (1.8mg/hr today, 1.6mg/hr tomorrow, 1.4mg hour day 3 etc.). Rate could potentially be decreased more quickly, please contact us per recommendations. Thank you for including psychiatry in this case we will continue to follow. Nelson Morton APRN, pager [phone]
[2016-05-13 16:00] VITALS: BP 140/80
--- NOTE | 2016-05-13 16:06 | NUR ---
Referral received last week when I was notified y the local Probate Court that the patients family had petitioned for the Appointment of a Temporary/Emergency Conservator. Subsequent documentation received from the court today with a decree extending the term of the conservaorship until 06/08/2016. Decree to be scanned to EHR. In the meantime, referral received from for "Intermediate options for care". Case discussed with piano case and bench assembler, Eduardo Stark. I will have a conversation with patients sisters (who are his conservators) to initiate the financial conversation and the need for T-19 coverage. Follow.
--- NOTE | 2016-05-13 16:29 | RADIOLOGY REPORT ---
EXAMINATION: XR ABDOMEN CLINICAL INDICATION: Dobbhoff tube placement. COMPARISON: 05/12/2016 TECHNIQUE: Abdomen, AP view FINDINGS: There are no dilated bowel loops. Enteric contrast material is present within the colon, and there are diverticula of the descending and sigmoid colon. Again noted is the feeding tube coiled within the stomach, its tip directed cranially toward the region of the gastric fundus, unchanged compared to 05/12/2016. IMPRESSION: The Dobbhoff feeding tube is unchanged in position compared to 05/12/2016. The tip of the tube remains cranially directed, located within the fundus.
--- NOTE | 2016-05-13 16:46 | NUR ---
@1600-PT REPOSITIONED TO R SIDE AFTER ABD XRAY COMPLETED. PT MEDICTED WITH 1X HALDOL IM AT 1500 FOR INCREASED AGITITION AND PT HOYERED BACK TO BED. MOTHER REMAINS AT BEDSIDE. VSS EXCEPT CONT TACHY 112-115. CONT TO MONITOR CLOSELY. CALL MORRIS WITHIN REACH.
--- NOTE | 2016-05-13 18:57 | NUR ---
@1400-PT PLACED ON TRACH MASK, 30% PER RT. PT LAMAR WELL.
--- NOTE | 2016-05-13 19:30 | NUR ---
@1830-PT TURNED AND REPOSITIONED. RED/SWOLLEN AREA NOTED TO L GREAT TOE WITH GREEN PUS NOTED TO SITE, TENDER TO TOUCH. REPORTED TO HOUSESTAFF.
[2016-05-13 20:00] VITALS: BP 110/66
--- NOTE | 2016-05-13 20:23 | Event Note ---
Event Note Event Note: I was signed out that nurse was worried that patient is having ingrowing toe nale in left great toe and there is greenish puss coming out. I and Dr Mcelroy went to see, there was a mild redness, ? swelling, but there is no any puss, even patient was not having any pain/ withdrawl of leg after pressure. I would sign out to morning team if needed they can consider for podiatry consult.
[2016-05-13 21:02] VITALS: BP 110/66
[2016-05-14] VITALS (8 sets, daily range): BP systolic 99–150; BP diastolic 54–96
[2016-05-14 05:00] LABS: ABSOLUTE BASOPHIL COUNT 0 /CUMM (0.0-0.2); ABSOLUTE EOSINOPHIL COUNT 0.3 /CUMM (0.0-0.7); ABSOLUTE GRANULOCYTE CT 8.2 /CUMM (1.4-6.5); ABSOLUTE LYMPH COUNT 1.2 /CUMM (1.2-3.4); ABSOLUTE MONOCYTE COUNT 0.8 /CUMM (0.10-0.60); BASOPHIL % 0.3 % (0.0-2.0); EOSINOPHIL % 2.5 % (0-5); GRANULOCYTE % 78.1 % (42.2-75.2); HEMATOCRIT 28.8 % (42-52); MEAN CORPUSCULAR VOLUME 94.1 FL (80.0-94.0); MEAN PLATELET VOLUME 10.2 FL (7.4-10.4); PLATELET COUNT 122 /CUMM (130-400); RED BLOOD CELL CT 3.06 /CUMM (4.70-6.10); WHITE BLOOD CELL COUNT 10.4 /CUMM (4.8-10.8)
[2016-05-14 05:01] LABS: PT 15.5 SEC (9.4-12.5)
--- NOTE | 2016-05-14 05:46 | PN- Student ---
ARIADNA QUICK 05/14/16 0540: Subjective Subjective: s/p dobhoff placement day 4 Patient remains sedated, vented via tracheostomy, agitated, restless. Remains on TPN. Dobhoff placed Thursday with X-ray confirming placement. 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 Serial abdominal X-Rays have been showing tip of tube remains in gastric fundus. Meropenem restarted per ID 2 days ago due to 102.3F. Currently afebrile. Has been receiving lactulose via enemas since discovery of CONNIE leak. Patient has been having infrequent PVCs, no runs of VT last night Objective Objective: Temp: 98.3, HR: 106, RR: 20, BP: 148/96, O2: 99% trach 24 hours NGT: 200mL Urine: 1065 mL Stool: 220mL last shift: #1: 10mL #2: 270mL #3: 320mL Gen: intubated, sedated. Agitated Cardiac: S1 S2 present. Tachycardiac Lungs: coarse breath sounds bilaterally. Expiratory wheezes on right side Abd: soft, distended, NT, hypoactive bowel sounds. HS drains in place. Majority of abdomen covered in dressing. Ext: no significant bilateral lower extremity edema. Distal pulses 1+. Paronychia around left great toe is erythematous, swollen, no signs of drainage. 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 Currently afebrile. - Continue drains to suction. - Daily x-rays to confirm dobhoff tube placement if post-pyloric. AXR yesterday showed dobhoff tip remains in fundus. Consider IR or GI to re-position dobhoff tube into small bowel. - DVT prophylaxis: ALPs, heparin - On Meropenum per ID. Resp cultures grew up mold, WBCs, squamous cells, gram positive cocci - Continue to wean - Care per primary team KADIE ALVES 05/14/16 5452: Addendum Addendum I have seen and examined patient and agree with above. CONNIE #1 drained 1270mL over past 24hrs thus far. Dobhoff tube remains in fundus. Will discuss plan with attending.
--- NOTE | 2016-05-14 08:04 | RADIOLOGY REPORT ---
EXAMINATION: XR PORTABLE CHEST CLINICAL INFORMATION: On ventilator. Respiratory assessment. COMPARISON: 05/13/2016 TECHNIQUE: Portable view of the chest was obtained. FINDINGS: Tracheostomy tube terminates 6 cm from the ching. Right IJ central venous catheter terminates at the cavoatrial junction. Gastric decompression tube extends into the stomach with side-port near the GE junction. Lung volumes are low. There is bibasilar atelectasis. No superimposed consolidation is identified. Prominence of the cardiac silhouette and pulmonary vasculature likely due enlarged prior to the limited inspiration. Soft tissue anchors are present within the right humeral head. IMPRESSION: Low lung volumes. No acute pulmonary findings.
--- NOTE | 2016-05-14 09:28 | PN- CRCU ---
Subjective HPI/Critical Care Issues: The patient is awake and tracking with his eyes. He is intermittently following commands. He remains afebrile. Haldol was started yesterday as recommended by psychiatry. The patient is now stable off mechanical ventilation. He remains on a trach mask with oxygen saturations in the high 90s. He remains on an Ativan drip at 2 mg per hour. The patient is now getting out of bed daily. The patient continues to have significant drainage from the CONNIE drains, however CONNIE drain #1 has had minimal output. Objective Current Medications: Current Medications Sig/Roberto Start time Last Medication Dose Route Stop Time Status Admin Albuterol Sulfate 3 ML EVERY 4 HRS/AWAKE 05/01 2000 AC 05/14 INH 0835 Fat Emulsion 450 ML 1900 05/13 1900 AC 05/13 Intravenous IV 05/14 1859 194 Fat Emulsion 450 ML 1900 05/12 1900 DC 05/12 Intravenous IV 05/13 185 193 Haloperidol 1 MG Q6P PRN 05/14 0900 AC IM Haloperidol 1 MG FOUR TIMES A DAY PRN 05/13 2100 DC 05/13 PO 2254 Haloperidol 1 MG ONCE ONE 05/13 1445 DC 05/13 IM 05/13 1446 1436 Heparin Sodium 5,000 UNIT Q8 04/24 1400 AC 05/14 (Porcine) SC 0552 Hydromorphone HCl 2 MG Q4-PRN PRN 05/04 1745 AC 05/14 IV 0803 Insulin Aspart 0 Q8 05/08 1400 AC 05/13 SC 1431 Lactulose 1 BOT BID 05/11 2200 AC 05/13 ND 2252 Lorazepam 50 MG Q24H 05/12 0745 AC 05/13 Sodium Chloride 500 ML IV 0121 Melatonin 10 MG AT BEDTIME 05/13 2200 DC 05/13 PO 2253 Meropenem 1 GM IQ8 05/13 0000 AC 05/14 IV 0802 Nystatin 5 ML 4 TIMES/DAY 05/13 1000 AC 05/14 PO 0803 Ondansetron HCl 4 MG Q8P PRN 04/22 0600 AC IV Pantoprazole Sodium 40 MG BID 04/22 2200 AC 05/14 IV 0803 Sodium Chloride 1,000 ML .Q20H 05/12 0945 AC 05/14 IV 0458 Total Parenteral 1 UNIT 1900 05/13 1900 AC 05/13 Nutrition IV 121858 194 Total Parenteral 1 UNIT 1900 05/12 1900 DC 05/12 Nutrition IV 05/13 Vital Signs & I&O Last 24 Hrs of Vitals and I&O: Vital Signs Date Time Temp Pulse Resp B/P Pulse O2 O2 Flow FiO2 Ox Delivery Rate 05/14 0843 94 Trach Mask 30% 05/14 0600 98.2 102 27 147/72 97 Trach Mask 30% 05/14 0400 98.3 106 20 148/96 05/14 0400 99 Trach Mask 30% 05/14 0118 98 Trach Mask 30% 05/14 0000 98.1 104 14 115/68 05/14 0000 97 Trach Mask 30% 05/14 0000 98.1 104 14 137/74 97 Trach Mask 30% 05/13 2102 97.2 94 10 110/66 05/13 2000 97.2 94 10 110/66 05/13 2000 97 Trach Mask 30% 05/13 1600 98.4 112 24 140/80 98 Trach Mask 30% 05/13 1600 95 Trach Mask 30% 05/13 1340 30 05/13 1200 95 Ventilator 30% 05/13 1150 30 05/13 1125 30 Intake & Output 05/14 1600 05/14 0800 05/14 0000 Intake Total 1249.0 1788.0 Output Total 1020 1035 Balance 229.0 753.0 Intake, IV 448 671 Intake, Lipid 121.0 166.0 Intake, Other 50 Intake, 680 901 TPN/PPN Output, 565 600 Drainage Output, Stool 140 120 Output, Urine 315 315 Exam General Appearance: intermittently agitated, moving all extremities Head: atraumatic Neck: supple, trach in place Respiratory: no respiratory distress, clear anteriorly, lungs expand symmetrically, trachea midline Cardiovascular: regular rate/rhythm, tachycardia, S1 and S2 heard Abdomen: CONNIE drains in place, distended but improved overall Extremities: warm and dry Skin: no cyanosis or edema Results Last 24 Hrs of Lab Results: Laboratory Tests 05/14/16 0510: pH 7.42, pCO2 38, pO2 107 H, HCO3 24, ABG O2 Sat (Measured) 97.0, P-50 (Temp Corrected) Y, Carboxyhemoglobin 0.3 L, O2 Concentration % 30%, Temperature 98.3 , O2 Delivery Method TM, Phlebotomy Draw Site LEFT RADIAL 05/14/16 0400: Anion Gap 6, Estimated GFR > 60, Glucose 117 H, Calcium 8.6, Phosphorus 4.2, Magnesium 2.0, Total Bilirubin 1.9 H, AST 45, ALT 42, Albumin 2.3 L, Lipase Pending, PT 15.5 H, INR 1.48 H, CBC w Diff NO MAN DIFF REQ, RBC 3.06 L, MCV 94.1 H, MCH 31.0, RDW 16.0 H, MPV 10.2, Gran % 78.1 H, Lymphocytes % 11.1 L, Monocytes % 8.0, Eosinophils % 2.5, Basophils % 0.3, Absolute Granulocytes 8.2 H, Absolute Lymphocytes 1.2, Absolute Monocytes 0.8 H, Absolute Eosinophils 0.3 , Absolute Basophils 0, PUBS MCHC 33.0 05/13/165: pH 7.38, pCO2 40, pO2 100, HCO3 24, ABG O2 Sat (Measured) 96.0, P-50 (Temp Corrected) Y, Carboxyhemoglobin 0.3 L, O2 Concentration % 35%, Temperature 97.2 , O2 Delivery Method TM, Phlebotomy Draw Site RIGHT RADIAL Impression/Plan Impression/Plan Impression/Plan: 1. Status post laparoscopic Clint patch for perforated duodenal ulcer with peritonitis. 2. Respiratory failure s/p tracheostomy placement. Respiratory status stable off mechanical ventilation. 3. 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 4. Ongoing encephalopathy - hepatic? metabolic? 5. Anemia without active blood loss. 6. Deep tissue injury - right scapula area, improving. 7. Severe malnutrition - on TPN. 8. Electrolyte abnormalities. 9. New, mild thrombocytopenia. 10. Fever, now improved, cultures negative so far, no clear evidence of infection on CT scan. Recommendations: * No medications or flushes are to be put down the [place] or the NG tube until positioning is correct. * Decrease Ativan drip down to 1 million per hour. * Follow-up psychiatry recommendations for agitation. * Check daily abdominal x-rays to determine the position of the Dobbhoff tube. * No need for daily chest x-rays. * Continue lactulose enemas. Will attempt lactulose via Dobbhoff tube when in the proper location. * Follow-up ID recommendations. * Change to half normal saline at 50 ML per hour. * Continue TPN. * MVI, thiamine, folate to continue in TPN. * Await Proline placement. * Discontinue PICC line after Proline secured. * Discontinue Ann catheter, [place] catheter can be used. * Continue DVT and GI prophylaxis. * Skin care protocol to continue. * Out of bed to chair daily. * Give breaks from Alps periodically as per family request. * Continue all supportive care. * Family updated at the bedside. TTS 40
--- NOTE | 2016-05-14 10:47 | PN- Infect Dx ---
Subjective Subjective: Afebrile without complaints. He was successfully extubated yesterday and has been tolerating a trach mask. He remains agitated, requiring Haldol in addition to Ativan. Objective Last 24 Hrs of Vital Signs/I&O Vital Signs Date Time Temp Pulse Resp B/P Pulse O2 O2 Flow FiO2 Ox Delivery Rate 05/14 0843 94 Trach Mask 30% 05/14 0600 98.2 102 27 147/72 97 Trach Mask 30% 05/14 0400 98.3 106 20 148/96 05/14 0400 99 Trach Mask 30% 05/14 0118 98 Trach Mask 30% 05/14 0000 98.1 104 14 115/68 05/14 0000 97 Trach Mask 30% 05/14 0000 98.1 104 14 137/74 97 Trach Mask 30% 05/13 2102 97.2 94 10 110/66 05/13 2000 97.2 94 10 110/66 05/13 2000 97 Trach Mask 30% 05/13 1600 98.4 112 24 140/80 98 Trach Mask 30% 05/13 1600 95 Trach Mask 30% 05/13 1340 30 05/13 1200 95 Ventilator 30% 05/13 1150 30 05/13 1125 30 Intake & Output 05/14 1600 05/14 0800 05/14 0000 Intake Total 1249.0 1788.0 Output Total 1020 1035 Balance 229.0 753.0 Intake, IV 448 671 Intake, Lipid 121.0 166.0 Intake, Other 50 Intake, 680 901 TPN/PPN Output, 565 600 Drainage Output, Stool 140 120 Output, Urine 315 315 Physical Exam Other Physical Findings: He is awake but not clearly responding to commands. He remains agitated Lungs bilateral rhonchi Heart regular rhythm with no murmur Abdomen is distended, nontender with positive bowel sounds; minimal output from drain #1 over the past 2 days Extremities no cyanosis, clubbing or edema; PICC in the right upper extremity with no inflammation at the site Ann catheter remains in place Results Last 24 Hours of Lab Results: Laboratory Tests 05/14 05/14 0510 0400 Blood Gas pH (7.35 - 7.45 PH) 7.42 pCO2 (35 - 45 TORR) 38 pO2 (80 - 100 TORR) 107 H HCO3 (21 - 28 MEQ/L) 24 ABG O2 Sat (Measured) (>96.0 %) 97.0 P-50 (Temp Corrected) Y Carboxyhemoglobin (1.5 - 5.0 %) 0.3 L O2 Concentration % 30% Temperature (97.0 - 100.0 FARH) 98.3 O2 Delivery Method TM Chemistry Sodium (137 - 145 mmol/L) 141 Potassium (3.5 - 5.1 mmol/L) 4.0 Chloride (98 - 107 mmol/L) 107 Carbon Dioxide (22 - 30 mmol/L) 28 Anion Gap (5 - 16) 6 BUN (9 - 20 mg/dL) 22 H Creatinine (0.7 - 1.2 mg/dL) 0.7 Estimated GFR (>60 ml/min) > 60 Glucose (65 - 99 mg/dL) 117 H Calcium (8.4 - 10.2 mg/dL) 8.6 Phosphorus (2.5 - 4.5 mg/dL) 4.2 Magnesium (1.6 - 2.3 mg/dL) 2.0 Total Bilirubin (0.2 - 1.3 mg/dL) 1.9 H AST (17 - 59 U/L) 45 ALT (21 - 72 U/L) 42 Albumin (3.5 - 5.0 g/dL) 2.3 L Lipase (23 - 300 U/L) 688 H Coagulation PT (9.4 - 12.5 SEC) 15.5 H INR (0.90 - 1.17) 1.48 H Hematology CBC w Diff NO MAN DIFF REQ WBC (4.8 - 10.8 /CUMM) 10.4 RBC (4.70 - 6.10 /CUMM) 3.06 L Hgb (14.0 - 18.0 G/DL) 9.5 L Hct (42 - 52 %) 28.8 L MCV (80.0 - 94.0 FL) 94.1 H MCH (27.0 - 31.0 PG) 31.0 RDW (11.5 - 14.5 %) 16.0 H Plt Count (130 - 400 /CUMM) 122 L MPV (7.4 - 10.4 FL) 10.2 Gran % (42.2 - 75.2 %) 78.1 H Lymphocytes % (20.5 - 51.1 %) 11.1 L Monocytes % (1.7 - 9.3 %) 8.0 Eosinophils % (0 - 5 %) 2.5 Basophils % (0.0 - 2.0 %) 0.3 Absolute Granulocytes (1.4 - 6.5 /CUMM) 8.2 H Absolute Lymphocytes (1.2 - 3.4 /CUMM) 1.2 Absolute Monocytes (0.10 - 0.60 /CUMM) 0.8 H Absolute Eosinophils (0.0 - 0.7 /CUMM) 0.3 Absolute Basophils (0.0 - 0.2 /CUMM) 0 PUBS MCHC (33.0 - 37.0 G/DL) 33.0 Miscellaneous Phlebotomy Draw Site LEFT RADIAL 05/13 2145 Blood Gas pH (7.35 - 7.45 PH) 7.38 pCO2 (35 - 45 TORR) 40 pO2 (80 - 100 TORR) 100 HCO3 (21 - 28 MEQ/L) 24 ABG O2 Sat (Measured) (>96.0 %) 96.0 P-50 (Temp Corrected) Y Carboxyhemoglobin (1.5 - 5.0 %) 0.3 L O2 Concentration % 35% Temperature (97.0 - 100.0 FARH) 97.2 O2 Delivery Method TM Miscellaneous Phlebotomy Draw Site RIGHT RADIAL Last 24 Hours of Garcia Results: Blood cultures 3 May 12 negative Urine culture May 12 negative Recent Imaging Studies: Chest x-ray May 14, personally reviewed, negative Assessment/Plan Impression: Overall improved, now status post successful extubation yesterday, with resolution of fever and with white blood cell count remaining essentially normal on Meropenem, restarted 2 days ago empirically because of the concern of ongoing duodenal leak, now 22 days status post laparoscopic Clint plication for perforated duodenum. The recent CT scan did not demonstrate any evidence for a leak or collection and he has had minimal drainage from drain #1 over the past 2 days, which is of unclear significance. Suggestion: 1. Further management regarding his presumed leak and feeding via the Dobhoff tube per Surgery 2. Continue Meropenem
--- NOTE | 2016-05-14 14:19 | RADIOLOGY REPORT ---
EXAMINATION: XR ABDOMEN CLINICAL INDICATION: History of repair of perforated duodenal ulcer. Evaluate Dobbhoff feeding tube position. COMPARISON: 05/12/2016 and 05/13/2016. TECHNIQUE: Abdomen, AP view (KUB) FINDINGS: A drainage catheter projects over the upper abdomen. The Dobbhoff feeding tube remains coiled within the proximal stomach, its tip directed cranially toward the region of the fundus, unchanged in position relative to the recent comparison examinations. Enteric contrast is present within the nondilated colon. IMPRESSION: The Dobbhoff feeding tube remain stable in position within the proximal stomach, its tip located within the fundus.
--- NOTE | 2016-05-14 15:46 | NUR ---
0800: RECEIVED PT IN BED. SAS 5. ATIVAN GTT AT 2MG/HR. ST ON MONITOR. TRACH MASK IN PLACE AT 30%. TPN, LIPIDS AND IVF RUNNING PER EMAR. STERLING IN PLACE. RECTAL TUBE DRAINING BROWN LIQUID STOOL. TRACH CARE GIVEN. SUCTIONED, THICK WHITE SECRETIONS. SKIN INTACT. BRUISE TO NIHARIKA ABOVE PICC LINE. NGT TO LOW WALL SUCTION. KO FEED TO LEFT NARE. [address] DILAUDID GIVEN. FLACC 7. WILL MONITOR.
--- NOTE | 2016-05-14 15:51 | NUR ---
1130: PT TO IR FOR PROLINE PLACEMENT. THIS RN SPOKE TO THE RN IN IR INFOMRING THEM ABOUT PT BEING RESTLESS WITH AN SAS OF 5. ATIVAN GTT AT 1MG/HR PER DR PANDEY. IM HALDOL GIVEN PRIOR TO TRANSPORT TO IR. PT STILL RESLTESS, PER RADIOLOGY MD, IT IS NOT SAFE TO PROCEED WITH PROCEDURE. PT TRANSPORTED BACK TO ICU. PROCEDURE PLANNED FOR 9AM TOMORROW WITH ANESTHESIA.
--- NOTE | 2016-05-14 16:19 | PN- Psychiatry ---
Assessment/Plan Impression: 51-year-old male stage IV cirrhosis secondary to alcohol use and a perforated duodenal ulcer with peritonitis, now status post surgical repair on 04/23. Evaluated lying in bed in soft wrist restraints in the critical care unit. Dressed in hospital garb, patient is diaphoretic. Psychomotor agitation is noted with patient constantly kicking legs lifting hips bed. Patient opens eyes spontaneously when name is said and looks at this radio news writer but quickly closes them. Appears to be oriented to self only. Is unable to follow simple commands for this radio news writer but per chart was able to earlier in the day. Per nursing and medical staff report patient was given IM haloperidol 1 mg to poor effect and will likely require a higher dose of medication. Additionally patient cannot take any medications by mouth. Ativan drip rate was decreased to 1 mg/hr at approximately 10:00 this morning. Most recent EKG shows QTc 430ms. Suggestion: 1. Please increase haloperidol dose to 1.5 mg every 8 hours when necessary for agitation. We may require a higher dose. Continue to monitor EKG and electrolytes, hold Haldol for QTC above 475 ms. 2. Continue CIWA protocol and medicate appropriately. Continue to monitor for rebound signs and symptoms of benzodiazepine withdrawal including increased confusion and agitation. 3. Please continue to avoid benzodiazepines, opioid analgesics, and meds with strong anticholinergic properties as much as possible to prevent further confusion. 4. Please continue the following nonpharmacologic interventions: -Avoid nursing and medical procedures during sleep hours whenever possible - Cluster at night interventions that must be completed as much as possible to minimize sleep disruption - Decrease noise in patient area during sleeping hours - Reduce lighting at night - Ensure patient has any sensory aids close by that he regularly uses 5. Please consider decreasing Ativan by 10%-20% daily to prevent withdrawl symnptoms. Thank you for including psychiatry in this case we'll continue to follow. Nelson Morton APRN, pager [phone]. Subjective Subjective: .
--- NOTE | 2016-05-14 16:40 | NUR ---
PT'S SAS REMAINS AT 5. IM HALDOL FROM THIS MORNING HAD LITTLE TO NO AFFECT. WILL MONITOR.
--- NOTE | 2016-05-14 17:49 | PN- Resident CRCU ---
See Addendum Subjective HPI/CRCU Issues: Patient seen and examined. Patient is seen lying flat in bed with multiple lines in place in addition to bilateral upper extremity restraints. He is not alert or aware of his surroundings, he does not follow commands. His eyes are open and the patient is agitated. Review of systems is unobtainable. No overnight events reported. Objective Vital Signs & I&O Last 8 Hrs of Vitals and I&O: Intake & Output 05/14 1600 Intake Total 1497.0 Output Total 1285 Balance 212.0 Intake, IV 394 Intake, Lipid 148.0 Intake, Other 130 Intake, 825 TPN/PPN Output, 560 Drainage Output, 125 Gastric Drainage Output, Stool 400 Output, Urine 200 Vitals: - Temperature: 98.3-101.8 - Heart Rate: 102-131, atrial fibrillation - Respiratory Rate: 18-24 - Systolic Blood pressure: 100-118 - Diastolic Blood pressure: 61-71 - Oxygen Saturation: 90-96% Exam General Appearance: well developed/nourished, anxious, intubated, lethargic, moderate distress, obese Other Physical Findings: General -obese male in bilateral soft upper extremity restraints in mild distress HEENT - NCAT, anicteric sclera Cardio - S1, S2 w/o murmurs/gallops/rubs Resp - CTA bilaterally , tracheostomy in place ventilator GI -soft, nontender, nondistended abdomen with multiple surgical incision sites no longer draining Neuro -incoherent, somnolent, agitated, non-arousable Weaning Parameters NIF: 45 Minute Volume: 11.1 Resp rate: 16 Vt: 699 Heart Rate: 84 Weaning Schedule Start Time: 1006 Minute Volume: 10.4 Resp Rate: 18 Vt: 583 Heart Rate: 96 End Time: 1145 Minute Volume: 13.1 Resp Rate: 18 Vt: 731 Heart Rate: 104 Start Time: 1345 Resp Rate: 24 Heart Rate: 113 Current Medications: Current Medications Sig/Roberto Start time Last Medication Dose Route Stop Time Status Admin Albuterol Sulfate 3 ML EVERY 4 HRS/AWAKE 05/01 2000 AC 05/14 INH 1605 Fat Emulsion 450 ML 1900 05/14 1900 AC Intravenous IV 05/15 1859 Fat Emulsion 450 ML 05/13 AC 05/13 Intravenous IV 05/14 1859 194 Fat Emulsion 450 ML 1900 05/12 1900 DC 05/12 Intravenous IV 05/13 1859 1939 Haloperidol 1.5 MG Q8P PRN 05/14 1345 AC IM Haloperidol 1 MG Q6P PRN 05/14 0900 DC 05/14 IM 1105 Haloperidol 1 MG FOUR TIMES A DAY PRN 05/13 2100 DC 05/13 PO 2254 Heparin Sodium 5,000 UNIT Q8 04/24 1400 AC 05/14 (Porcine) SC 1356 Hydromorphone HCl 2 MG Q4-PRN PRN 05/04 1745 AC 05/14 IV 1356 Insulin Aspart 0 Q8 05/08 1400 AC 05/14 SC 1445 Lactulose 1 BOT BID 05/11 2200 AC 05/14 IL 1035 Lorazepam 50 MG Q24H 05/12 0745 AC 05/13 Sodium Chloride 500 ML IV 0121 Melatonin 10 MG AT BEDTIME 05/13 2200 DC 05/13 PO 2253 Meropenem 1 GM IQ8 05/13 0000 AC 05/14 IV 1632 Nystatin 5 ML 4 TIMES/DAY 05/13 1000 AC 05/14 PO 1734 Ondansetron HCl 4 MG Q8P PRN 04/22 0600 AC IV Pantoprazole Sodium 40 MG BID 04/22 2200 AC 05/14 IV 0803 Sodium Chloride 1,000 ML .Q20H 05/12 0945 AC 05/14 IV 0458 Total Parenteral 1 UNIT 1900 05/14 1900 AC Nutrition IV 05/14 190 Total Parenteral 1 UNIT 1900 05/13 1900 AC 05/13 Nutrition IV 05/14 Total Parenteral 1 UNIT 1900 05/12 1900 DC 05/12 Nutrition IV 05/13 Impression/Plan Impression/Problem List Impression: Patient continues to remain agitated while being maintained on an Ativan drip, now tapered to 1 mg per hour. Patient was started on Haldol every 6 hours for agitation per recommendations of psychiatry. Patient was scheduled to undergo a prolonged placement by interventional radiology this morning, however patient was not cooperative with the procedure. It will be attempted again tomorrow with the aid of anesthesiology. Ann catheter was discontinued today, [place] catheter was started. Patient was febrile to 101.8 overnight despite being maintained on meropenem. Problem list: -Duodenal ulcer perforation status post surgical repair -Possible peritonitis, on meropenem -Sepsis, now resolved -Delirium -History of alcohol abuse Gastrointestinal: Patient admitted for perforated duodenal ulcer complicated with peritonitis. Currently status post status post surgical repair. Surgical sites continue to drain a clear liquid, however are without any surrounding erythema or induration. -NG tube -Nothing by mouth -TPN nutrition -Protonix 40 mg IV twice a day Infectious disease: Patient was febrile to 101.8 overnight despite being maintained on antibiotics. There is some consideration for potential disseminated candidal infection however interventions to address this will be deferred for 48 hours to assess patient's response to current antibiotic regimen. . -Meropenem 1 g IV every 8 hours -Nystatin swish and swallow for thrush Respiratory: Patient is saturating well supplemental oxygen provided via tracheostomy with 30 % O2. -TRC neb treatments -Supplemental oxygen via tracheostomy and ventilator Neurology: Patient continues to remain disoriented and agitated. -Lactulose one bottle [place] twice a day -Ativan drip -Haldol 1 mg IM every 6 hours as needed for agitation Cardiovascular: History of hypertension and hyperlipidemia, currently stable. -Telemetry cardiac monitoring -Normal sinus rhythm overnight Endocrine: Continue to monitor Accu-Cheks 3 times a day before meals/at bedtime. -NovoLog sliding scale insulin Hematology: Stable hemoglobin and hematocrit Integumentary: Patient has multiple surgical site incisions on his abdomen that are continuing to drain without any new signs of infection. No apparent new skin breakdown. -Normal saline at 50 mL per hour Pain plan: -Hydromorphone 2 mg IV every 4 hours as needed for pain 7-10 Diet-nothing by mouth, continue TPN nutrition as above DVT prophylaxis-subcutaneous heparin CODE STATUS-full code Problem List: 1. Peritonitis Pain Ratin Tomorrow's Labs & Rationales: Complete blood count ICU bundle Abdominal x-ray Arterial blood gas Plan DVT/Prophylaxis: mechanical
--- NOTE | 2016-05-14 18:46 | NUR ---
NGT STARTING TO DRAIN BRIGHT RED BLOOD. MD HARRELL MADE AWARE. SURG PA TO COME ASSESS. WILL MONITOR. FLUSHED NGT WITH AIR TO TRY AND GET TUBE AWAY FROM STOMACH WALL.
--- NOTE | 2016-05-14 19:07 | NUR ---
STAT CBC SENT AT THIS TIME
[2016-05-14 20:49] LABS: ABSOLUTE BASOPHIL COUNT 0.1 /CUMM (0.0-0.2); ABSOLUTE EOSINOPHIL COUNT 0.3 /CUMM (0.0-0.7); ABSOLUTE GRANULOCYTE CT 6.7 /CUMM (1.4-6.5); ABSOLUTE LYMPH COUNT 0.8 /CUMM (1.2-3.4); ABSOLUTE MONOCYTE COUNT 0.6 /CUMM (0.10-0.60); BASOPHIL % 1.1 % (0.0-2.0); GRANULOCYTE % 78.8 % (42.2-75.2); MEAN CORPUSCULAR HGB CONC 32.8 G/DL (33.0-37.0); MEAN CORPUSCULAR VOLUME 94.6 FL (80.0-94.0); MEAN PLATELET VOLUME 10.5 FL (7.4-10.4); PLATELET COUNT 149 /CUMM (130-400); RBC DISTRIBUTION WIDTH 15.3 % (11.5-14.5); RED BLOOD CELL CT 2.96 /CUMM (4.70-6.10); WHITE BLOOD CELL COUNT 8.5 /CUMM (4.8-10.8)
[2016-05-15] VITALS: BP 118/72
--- NOTE | 2016-05-15 01:11 | NUR ---
NGT IN RIGHT NARES BEGINNING TO PUT OUT BLOOD AGAIN, PREVIOUSLY SUBSIDED EARLIER BUT SINCE PT RESTLESSNESS AND AGITATION HAS INCREASED STARTED BACK UP AGAIN. NOTIFIED MD JOHNSON, TO BEDSIDE, ORDERS GIVEN TO CHANGE TO INTERMITTENT SUCTION, OFF FOR 2 ON FOR 2.
--- NOTE | 2016-05-15 02:31 | NUR ---
BLOOD COMING AROUND TRACH SITE, RESPIRATORY AND MD VALENCIA AT BEDSIDE. RESPIRATORY SUCTIONED FOR SCANT LIGHT BLOOD TINGED SPUTUM. PT REMAINS 98-99% ON 30% TRACH MASK, PT REMAINS RESTLESS AND AGITATED DESPITE MEDICATIONS ON EMAR. SURGICAL PA WINNIE COTE NOTIFIED BY MD VALENCIA, INSTRUCTED TO HOLD COMPRESSION AT TRACH SITE AND REEVALUATE.
[2016-05-15 02:56] LABS: ABSOLUTE BASOPHIL COUNT 0 /CUMM (0.0-0.2); ABSOLUTE EOSINOPHIL COUNT 0.3 /CUMM (0.0-0.7); ABSOLUTE GRANULOCYTE CT 7.4 /CUMM (1.4-6.5); ABSOLUTE LYMPH COUNT 0.9 /CUMM (1.2-3.4); ABSOLUTE MONOCYTE COUNT 0.8 /CUMM (0.10-0.60); BASOPHIL % 0.3 % (0.0-2.0); EOSINOPHIL % 2.7 % (0-5); GRANULOCYTE % 79.1 % (42.2-75.2); HEMATOCRIT 28.5 % (42-52); MEAN CORPUSCULAR VOLUME 93.9 FL (80.0-94.0); MEAN PLATELET VOLUME 10.1 FL (7.4-10.4); PLATELET COUNT 157 /CUMM (130-400); RBC DISTRIBUTION WIDTH 15.3 % (11.5-14.5); RED BLOOD CELL CT 3.04 /CUMM (4.70-6.10); WHITE BLOOD CELL COUNT 9.4 /CUMM (4.8-10.8)
[2016-05-15 03:03] LABS: PT 15.5 SEC (9.4-12.5); PTT 39 SEC (25-37)
--- NOTE | 2016-05-15 03:54 | Event Note ---
Event Note Event Note: I was called to see, that patient is having bleeding from the NG tube. I contacted the mass and advised for intermittent suction. I also updated to and Dr Dawn. I was again called after an hour with the patient is bleeding from the tracheostomy site. Because of respiratory therapy, they did. Suctions from the tracheostomy tube. Secretions were clear. Small amount of blood. Primarily blood was oozing from the skin at the tracheostomy site. We talked to surgical PA and they told us to compress the bleeding site, which I updated to nurse Mary Alice taking care of patient. We also ordered PT/APTT which come back 1.48. After some time, I was again called that patient had coughed up a big clot. I updated to Dr. khalil and Dr. Riccardo Dawn MD. It was advised to observe the patient as bleeding profile is normal. Later when patient started having lidia bleeding from the NG tube. We stopped heparine and start patient on IV Protonix drip. We also sent. Fibrinogen, FDP, d -dimer. We also called Dr. Hernandez and discussed that the patient is actively bleeding from NG tube. He told that patient is a surgical patient and he cant scope the patient. So he advised to call surgery. Surgical PA talked to Dr Murillo and he told that he will see the patient in the morning and decide accordingly. Dr Gu told me to inform Dr Balderas about the event as she is attending. We informed her over phone. She advised to give 1 units of FFP and 10mg of Vit K. Patient was continuosly bleeding so we also ordered 1 units of PRBC.
[2016-05-15 04:00] VITALS: BP 162/81
--- NOTE | 2016-05-15 05:24 | PN- General Surgery ---
See Addendum Subjective Subjective: CALLED BY ICU TEAM TO EVAL INCREASED BLOODY OUTPUT FROM NGT TO LWS S/P GISELA PATCH REPAIR OF DUODENAL PERF ON 04/22/16 PATIENT REMAINS ON VENT WITH TRACH AGITATED ON ATIVAN GTT USUAL RESTLESSNESS OBSERVED Objective Vital Signs and I&Os Vital Signs Date Time Temp Pulse Resp B/P Pulse O2 O2 Flow FiO2 Ox Delivery Rate 05/15 0455 96 Trach Mask 30% 05/15 0208 97 Trach Mask 30% 05/15 0000 97.9 106 24 118/72 05/15 0000 98 Trach Mask 30% 05/15 0000 97.9 106 24 118/72 98 Trach Mask 30% 05/14 2200 97.8 88 18 112/54 05/14 2000 97.8 78 16 99/61 05/14 2000 96 Trach Mask 30% 05/14 1606 96 Trach Mask 30% 05/14 1600 97.2 100 22 120/60 05/14 1600 98 Trach Mask 30% 05/14 1600 97.2 100 22 120/60 98 Trach Mask 30% 05/14 1200 98.8 104 30 150/74 05/14 1200 97 Trach Mask 30% 05/14 0843 94 Trach Mask 30% 05/14 0800 98.2 104 22 140/70 05/14 0800 98 Trach Mask 30% 05/14 0800 98.2 104 22 140/70 98 Trach Mask 30% 05/14 0600 98.2 102 27 147/72 97 Trach Mask 30% Intake & Output 05/15 0800 05/15 0000 05/14 1600 05/14 0800 05/14 0000 05/13 1600 Intake Total 1427.0 1497.0 1249.0 1788.0 1774.7 Output Total 805 1285 1020 1035 1725 Balance 622.0 212.0 229.0 753.0 49.7 Intake, IV 497 394 448 671 722.7 Intake, Lipid 141.2 148.0 121.0 166.0 160.0 Intake, Oral 0 0 Intake, Other 130 50 Intake, 788.8 825 680 901 892 TPN/PPN Output, 555 560 291 041 9383 Drainage Output, 125 100 Gastric Drainage Output, Stool 400 140 120 100 Output, Urine 250 200 315 315 350 Patient 286 lb Weight Physical Exam: NGT/SUCTION CANISTER WITH TO RED BLOOD ABD SOFT DRSG DRY CONNIE DRAINS WITH SAME SEROBILIOUS DRAINAGE RECTAL TUBE WITH BROWN STOOL Results Last 48 Hours of Labs: Laboratory Tests 05/15 05/14 0242 1906 Chemistry Sodium (137 - 145 mmol/L) 145 Potassium (3.5 - 5.1 mmol/L) 4.1 Chloride (98 - 107 mmol/L) 108 H Carbon Dioxide (22 - 30 mmol/L) 27 Anion Gap (5 - 16) 10 BUN (9 - 20 mg/dL) 23 H Creatinine (0.7 - 1.2 mg/dL) 0.7 Estimated GFR (>60 ml/min) > 60 Glucose (65 - 99 mg/dL) 143 H Calcium (8.4 - 10.2 mg/dL) 8.6 Phosphorus (2.5 - 4.5 mg/dL) 4.3 Magnesium (1.6 - 2.3 mg/dL) 2.0 Total Bilirubin (0.2 - 1.3 mg/dL) 1.7 H AST (17 - 59 U/L) 50 ALT (21 - 72 U/L) 43 Albumin (3.5 - 5.0 g/dL) 2.3 L Prealbumin (17.6 - 36.0 mg/dL) 4.7 L Triglycerides (<150 mg/dL) 139 Coagulation PT (9.4 - 12.5 SEC) 15.5 H INR (0.90 - 1.17) 1.48 H APTT (25 - 37 SEC) 39 H Hematology CBC w Diff NO MAN DIFF REQ NO MAN DIFF REQ WBC (4.8 - 10.8 /CUMM) 9.4 8.5 RBC (4.70 - 6.10 /CUMM) 3.04 L 2.96 L Hgb (14.0 - 18.0 G/DL) 9.4 L 9.2 L Hct (42 - 52 %) 28.5 L 28.0 L MCV (80.0 - 94.0 FL) 93.9 94.6 H MCH (27.0 - 31.0 PG) 31.0 31.0 RDW (11.5 - 14.5 %) 15.3 H 15.3 H Plt Count (130 - 400 /CUMM) 157 149 MPV (7.4 - 10.4 FL) 10.1 10.5 H Gran % (42.2 - 75.2 %) 79.1 H 78.8 H Lymphocytes % (20.5 - 51.1 %) 9.5 L 9.9 L Monocytes % (1.7 - 9.3 %) 8.4 7.2 Eosinophils % (0 - 5 %) 2.7 3.0 Basophils % (0.0 - 2.0 %) 0.3 1.1 Absolute Granulocytes (1.4 - 6.5 /CUMM) 7.4 H 6.7 H Absolute Lymphocytes (1.2 - 3.4 /CUMM) 0.9 L 0.8 L Absolute Monocytes (0.10 - 0.60 /CUMM) 0.8 H 0.6 Absolute Eosinophils (0.0 - 0.7 /CUMM) 0.3 0.3 Absolute Basophils (0.0 - 0.2 /CUMM) 0 0.1 PUBS MCHC (33.0 - 37.0 G/DL) 33.0 32.8 L 05/14 05/14 0510 0400 Blood Gas pH (7.35 - 7.45 PH) 7.42 pCO2 (35 - 45 TORR) 38 pO2 (80 - 100 TORR) 107 H HCO3 (21 - 28 MEQ/L) 24 ABG O2 Sat (Measured) (>96.0 %) 97.0 P-50 (Temp Corrected) Y Carboxyhemoglobin (1.5 - 5.0 %) 0.3 L O2 Concentration % 30% Temperature (97.0 - 100.0 FARH) 98.3 O2 Delivery Method TM Chemistry Sodium (137 - 145 mmol/L) 141 Potassium (3.5 - 5.1 mmol/L) 4.0 Chloride (98 - 107 mmol/L) 107 Carbon Dioxide (22 - 30 mmol/L) 28 Anion Gap (5 - 16) 6 BUN (9 - 20 mg/dL) 22 H Creatinine (0.7 - 1.2 mg/dL) 0.7 Estimated GFR (>60 ml/min) > 60 Glucose (65 - 99 mg/dL) 117 H Calcium (8.4 - 10.2 mg/dL) 8.6 Phosphorus (2.5 - 4.5 mg/dL) 4.2 Magnesium (1.6 - 2.3 mg/dL) 2.0 Total Bilirubin (0.2 - 1.3 mg/dL) 1.9 H AST (17 - 59 U/L) 45 ALT (21 - 72 U/L) 42 Albumin (3.5 - 5.0 g/dL) 2.3 L Lipase (23 - 300 U/L) 688 H Coagulation PT (9.4 - 12.5 SEC) 15.5 H INR (0.90 - 1.17) 1.48 H Hematology CBC w Diff NO MAN DIFF REQ WBC (4.8 - 10.8 /CUMM) 10.4 RBC (4.70 - 6.10 /CUMM) 3.06 L Hgb (14.0 - 18.0 G/DL) 9.5 L Hct (42 - 52 %) 28.8 L MCV (80.0 - 94.0 FL) 94.1 H MCH (27.0 - 31.0 PG) 31.0 RDW (11.5 - 14.5 %) 16.0 H Plt Count (130 - 400 /CUMM) 122 L MPV (7.4 - 10.4 FL) 10.2 Gran % (42.2 - 75.2 %) 78.1 H Lymphocytes % (20.5 - 51.1 %) 11.1 L Monocytes % (1.7 - 9.3 %) 8.0 Eosinophils % (0 - 5 %) 2.5 Basophils % (0.0 - 2.0 %) 0.3 Absolute Granulocytes (1.4 - 6.5 /CUMM) 8.2 H Absolute Lymphocytes (1.2 - 3.4 /CUMM) 1.2 Absolute Monocytes (0.10 - 0.60 /CUMM) 0.8 H Absolute Eosinophils (0.0 - 0.7 /CUMM) 0.3 Absolute Basophils (0.0 - 0.2 /CUMM) 0 PUBS MCHC (33.0 - 37.0 G/DL) 33.0 Miscellaneous Phlebotomy Draw Site LEFT RADIAL 05/13 2145 Blood Gas pH (7.35 - 7.45 PH) 7.38 pCO2 (35 - 45 TORR) 40 pO2 (80 - 100 TORR) 100 HCO3 (21 - 28 MEQ/L) 24 ABG O2 Sat (Measured) (>96.0 %) 96.0 P-50 (Temp Corrected) Y Carboxyhemoglobin (1.5 - 5.0 %) 0.3 L O2 Concentration % 35% Temperature (97.0 - 100.0 FARH) 97.2 O2 Delivery Method TM Miscellaneous Phlebotomy Draw Site RIGHT RADIAL Assessment/Plan Assessment/Plan S/P GISELA PATCH REPAIR OF DUODENAL ULCER 04/22 NO EVIDENCE OF CHNAGE IN ABDOMINAL EXAM OR CONNIE DRAIN OUTPUT NEW ONSET OF INCREASED NGT BLOODY OUTPUT HEMODYNAMICALLY STABLE AT THIS TIME WITH STABLE H/H @ 0430 PLAN DISCUSSED CASE WITH DR THOMAS WHO BELIEVED THIS IS AND ACTIVE UPPER GI SOURCE POSSIBLY NGT/DUBOFF TUBE IRRITATION AND WILL PROBABLY NEED TO BE SCOPED FOR ACTIVE BLEEDING SOURCE. HE WILL BE IN SHORTLY TO EVAL PATIENT. UNTIL THEN MONITOR HEMPDYNAMIC STATUS AND CHANGES IN ABDOMINAL EXAM. ICU TEAM NOTIFIED.
[2016-05-15 05:26] LABS: ABSOLUTE BASOPHIL COUNT 0 /CUMM (0.0-0.2); ABSOLUTE EOSINOPHIL COUNT 0.2 /CUMM (0.0-0.7); ABSOLUTE GRANULOCYTE CT 7.5 /CUMM (1.4-6.5); ABSOLUTE LYMPH COUNT 0.8 /CUMM (1.2-3.4); ABSOLUTE MONOCYTE COUNT 0.9 /CUMM (0.10-0.60); BASOPHIL % 0.5 % (0.0-2.0); EOSINOPHIL % 2.6 % (0-5); GRANULOCYTE % 78.9 % (42.2-75.2); HEMATOCRIT 27.5 % (42-52); MEAN CORPUSCULAR HGB 31.1 PG (27.0-31.0); MEAN CORPUSCULAR HGB CONC 33.3 G/DL (33.0-37.0); MEAN CORPUSCULAR VOLUME 93.5 FL (80.0-94.0); MEAN PLATELET VOLUME 9.4 FL (7.4-10.4); PLATELET COUNT 148 /CUMM (130-400); RBC DISTRIBUTION WIDTH 15.2 % (11.5-14.5); RED BLOOD CELL CT 2.94 /CUMM (4.70-6.10); WHITE BLOOD CELL COUNT 9.5 /CUMM (4.8-10.8)
--- NOTE | 2016-05-15 07:06 | RADIOLOGY REPORT ---
EXAMINATION: XR ABDOMEN CLINICAL INDICATION: Perforated duodenal ulcer status post repair. Confirm Dobbhoff tube position. COMPARISON: Abdomen 05/14/2016 TECHNIQUE: AP supine view the abdomen is obtained. FINDINGS: The feeding tube is partially visualized in the left upper quadrant and appears to be in the proximal stomach. The tip is not seen. There is a drain in the right lower quadrant. The bowel gas pattern is unremarkable. IMPRESSION: Feeding tube partially visualized and appears to be in the proximal stomach.
--- NOTE | 2016-05-15 07:36 | PN- Resident CRCU ---
Subjective HPI/CRCU Issues: Patient seen and examined. He is seen lying flat in bed with multiple lines running including a Ann catheter, Dobbhoff tube, internal jugular central line , tracheostomy, nasogastric tube, and multiple peripheral lines. He is surrounded by family whom are concerned about the patient's clinical condition. Patient is awake, but does not follow commands or respond to any external stimuli. He appears uncomfortable and in mild distress. Review of systems is unobtainable. Overnight patient was seen to have bright red blood draining from his nasogastric tube for which the surgical PA was contacted. He was advised to obtain a complete blood count (which was within normal limits) and to prophylactically transfuse 1 unit packed red blood cells, vitamin K, and fresh frozen plasma. Bleeding was noted around the tracheostomy in small amounts for which pressure was applied and stopped. Patient was observed to cough up a large dark clot. Bleeding was thought to be due to nasal gastric tube suction and upper airway trauma from suctioning for which the nasogastric tube was clamped. Vital signs were monitored and patient remained hemodynamically stable throughout the evening. Objective Vital Signs & I&O Last 8 Hrs of Vitals and I&O: Intake & Output 05/15 1600 Intake Total Output Total Balance Patient 130.181 kg Weight Vitals: - Temperature: 98.0 - Heart Rate: 89-105 - Respiratory Rate: 18-20 - Systolic Blood pressure: 170 - Diastolic Blood pressure: 80 - Oxygen Saturation: 100% on 30% FiO2 via tracheostomy Exam General Appearance: awake, intubated, mild distress, obese Weaning Parameters NIF: 45 Minute Volume: 11.1 Resp rate: 16 Vt: 699 Heart Rate: 84 Weaning Schedule Start Time: 1006 Minute Volume: 10.4 Resp Rate: 18 Vt: 583 Heart Rate: 96 End Time: 1145 Minute Volume: 13.1 Resp Rate: 18 Vt: 731 Heart Rate: 104 Start Time: 1345 Resp Rate: 24 Heart Rate: 113 Current Medications: Current Medications Sig/Roberto Start time Last Medication Dose Route Stop Time Status Admin Albuterol Sulfate 3 ML EVERY 4 HRS/AWAKE 05/01 2000 AC 05/15 INH 0745 Fat Emulsion 450 ML 1900 05/14 190 AC 05/14 Intravenous IV 05/15 1859 193 Fat Emulsion 450 ML 05/13 190 DC 05/13 Intravenous IV 12/21 1859 1946 Haloperidol 1.5 MG Q8P PRN 05/14 1345 AC IM Haloperidol 1 MG Q6P PRN 05/14 0900 DC 05/14 IM 1105 Heparin Sodium 5,000 UNIT Q8 04/24 1400 DC 05/14 (Porcine) SC 2140 Hydromorphone HCl 2 MG Q4-PRN PRN 05/04 1745 AC 05/15 IV 0434 Insulin Aspart 0 Q8 05/08 1400 AC 05/14 SC 2152 Lactulose 1 BOT BID 05/11 2200 AC 05/14 SC 2141 Lorazepam 50 MG Q24H 05/12 0745 AC 05/15 Sodium Chloride 500 ML IV 0500 Meropenem 1 GM IQ8 05/13 0000 AC 05/15 IV 0846 Non-Formulary 0 SEE ADMIN CRITERIA 05/15 09 CAN Medication ANY Nystatin 5 ML 4 TIMES/DAY 05/13 1000 AC 05/14 PO 2140 Ondansetron HCl 4 MG Q8P PRN 04/22 0600 AC IV Pantoprazole Sodium 40 MG Q5H 05/15 0415 05/15 Sodium Chloride 100 ML IV 0846 Pantoprazole Sodium 40 MG BID 04/22 2200 DC 05/14 IV 2140 Phytonadione 10 MG ONCE ONE 05/15 0515 DC 05/15 WI 05/15 0516 0522 Propofol 1,000 MG Q8H 05/15 0915 AC N/A 1 UNIT IV Sodium Chloride 1,000 ML Q20H 05/14 2000 AC 05/15 IV 0003 Sodium Chloride 1,000 ML .Q20H 05/12 0945 DC 05/14 IV 0458 Total Parenteral 1 UNIT 1900 05/14 1900 DC 05/14 Nutrition IV 05/14 1901 1934 Total Parenteral 1 UNIT 1900 05/13 1900 DC 05/13 Nutrition IV 05/14 1859 1948 Impression/Plan Impression/Problem List Impression: Patient continues to remain uncomfortable appearing despite being maintained on an Ativan drip now tapered to 0.8 mg per hour. Haldol does not seem to be controlling his agitation at this time. Patient will be started on a propofol drip in anticipation for his pro-line placement by interventional radiology this morning. Ann catheter remains in place and will be attempted to be exchanged for a [place] catheter once patient is taken off of sedation. Blood draws will be obtained every 6 hours to monitor for acute bleeds. Chest x-ray to be a can this afternoon to assess for adequate pro-line placement and interval change of his respiratory status. PICC line to be discontinued after procedure. Problem list: -Duodenal ulcer perforation status post surgical repair -Possible peritonitis, on meropenem -Sepsis, now resolved -Delirium -History of alcohol abuse Gastrointestinal: Patient admitted for perforated duodenal ulcer complicated with peritonitis. Currently status post status post surgical repair. Surgical sites continue to drain a clear liquid, however are without any surrounding erythema or induration. -Abdominal x-ray daily -Dobbhoff tube in place -NG tube, now clamped -Nothing by mouth -TPN nutrition -Protonix drip Infectious disease: Patient was febrile to 101.8 overnight despite being maintained on antibiotics. There is some consideration for potential disseminated candidal infection however interventions to address this will be deferred for 48 hours to assess patient's response to current antibiotic regimen. . -Meropenem 1 g IV every 8 hours -Nystatin swish and swallow for thrush Respiratory: Patient is saturating well supplemental oxygen provided via tracheostomy with 30 % O2. -TRC neb treatments -Supplemental oxygen via tracheostomy and ventilator Neurology: Patient continues to remain disoriented and agitated. -Lactulose one bottle SC twice a day -Ativan drip, taper as tolerated -Propofol drip -Haldol 1 mg IM every 6 hours as needed for agitation Cardiovascular: History of hypertension and hyperlipidemia, currently stable. -Telemetry cardiac monitoring -Normal sinus rhythm overnight Endocrine: Continue to monitor Accu-Cheks 3 times a day before meals/at bedtime. -NovoLog sliding scale insulin Hematology: Stable hemoglobin and hematocrit. Patient developed a small upper GI bleed thought to be secondary to nasogastric tube suction. -Continue to monitor vitals closely -Complete blood count every 6 hours to assess for acute bleed Integumentary: Patient has multiple surgical site incisions on his abdomen that are continuing to drain without any new signs of infection. No apparent new skin breakdown. -Half Normal saline at 50 mL per hour Pain plan: -Hydromorphone 2 mg IV every 4 hours as needed for pain 7-10 Diet-nothing by mouth, continue TPN nutrition as above DVT prophylaxis-subcutaneous heparin CODE STATUS-full code Problem List: 1. Peritonitis Pain Ratin Tomorrow's Labs & Rationales: Complete blood count every 6 hours ICU bundle Abdominal x-ray Plan DVT/Prophylaxis: mechanical
[2016-05-15 08:00] VITALS: BP 162/84; BP 170/80
--- NOTE | 2016-05-15 08:24 | PN- CRCU ---
Subjective HPI/Critical Care Issues: The patient has been seen and examined. I discussed the patient with housestaff and nursing overnight. The patient had an episode of coughing up a large clot, with blood-tinged secretions. He has not desaturated and remains on a 30% trach mask. The patient was also found to have significant bleeding from his NG tube. This was estimated to be a few 100 ML's mixed with irrigation fluid. The patient's vital signs remained stable throughout. His hemoglobin decreased from 9.4-9.1 and his INR was 1.48. He is receiving 1 unit of packed red cells at present. He is to receive 1 unit of fresh frozen plasma and the patient received 10 mg of subcutaneous vitamin K. He has not had any melena or bright red blood per rectum. He remains agitated but does follow commands intermittently. He remains on Ativan 1 mg per hour. Objective Current Medications: Current Medications Sig/Roberto Start time Last Medication Dose Route Stop Time Status Admin Albuterol Sulfate 3 ML EVERY 4 HRS/AWAKE 05/01 2000 AC 05/15 INH 0745 Fat Emulsion 450 ML 1900 05/14 1900 AC 05/14 Intravenous IV 05/15 185 1934 Fat Emulsion 450 ML 1900 05/13 1900 DC 05/13 Intravenous IV 05/14 1859 1946 Haloperidol 1.5 MG Q8P PRN 05/14 1345 AC IM Haloperidol 1 MG Q6P PRN 05/14 0900 DC 05/14 IM 1105 Haloperidol 1 MG FOUR TIMES A DAY PRN 05/13 2100 DC 05/13 PO 2254 Heparin Sodium 5,000 UNIT Q8 04/24 1400 DC 05/14 (Porcine) SC 2140 Hydromorphone HCl 2 MG Q4-PRN PRN 05/04 1745 AC 05/15 IV 0434 Insulin Aspart 0 Q8 05/08 1400 AC 05/14 SC 2152 Lactulose 1 BOT BID 05/11 2200 AC 05/14 MT 2141 Lorazepam 50 MG Q24H 05/12 0745 AC 05/15 Sodium Chloride 500 ML IV 0500 Melatonin 10 MG AT BEDTIME 05/13 2200 DC 05/13 PO 2253 Meropenem 1 GM IQ8 05/13 0000 AC 05/15 IV 0003 Nystatin 5 ML 4 TIMES/DAY 05/13 1000 AC 05/14 PO 2140 Ondansetron HCl 4 MG Q8P PRN 04/22 0600 AC IV Pantoprazole Sodium 40 MG Q5H 05/155 AC 05/15 Sodium Chloride 100 ML IV 0423 Pantoprazole Sodium 40 MG BID 04/22 2200 DC 05/14 IV 2140 Phytonadione 10 MG ONCE ONE 05/15 515 DC 05/15 SC 05/15 0516 0522 Sodium Chloride 1,000 ML Q20H 05/14 2000 AC 05/15 IV 0003 Sodium Chloride 1,000 ML .Q20H 05/12 0945 DC 05/14 IV 0458 Total Parenteral 1 UNIT 1900 05/14 190 DC 05/14 Nutrition IV 05/14 190 1934 Total Parenteral 1 UNIT 0 05/13 190 DC 05/13 Nutrition IV 05/14 Vital Signs & I&O Last 24 Hrs of Vitals and I&O: Vital Signs Date Time Temp Pulse Resp B/P Pulse O2 O2 Flow FiO2 Ox Delivery Rate 05/15 0751 95 Trach Mask 30% 05/15 0455 96 Trach Mask 30% 05/15 0400 97.7 110 27 162/81 05/15 0208 97 Trach Mask 30% 05/15 0000 97.9 106 24 118/72 05/15 0000 98 Trach Mask 30% 05/15 0000 97.9 106 24 118/72 98 Trach Mask 30% 05/140 97.8 88 18 112/54 05/14 2000 97.8 78 16 99/61 05/14 2000 96 Trach Mask 30% 05/14 1606 96 Trach Mask 30% 05/14 1600 97.2 100 22 120/60 05/14 1600 98 Trach Mask 30% 05/14 1600 97.2 100 22 120/60 98 Trach Mask 30% 05/14 1200 98.8 104 30 150/74 05/14 1200 97 Trach Mask 30% 05/14 0843 94 Trach Mask 30% Intake & Output 05/15 1600 05/15 0800 05/15 0000 Intake Total 1427.0 Output Total 805 Balance 622.0 Intake, IV 497 Intake, Lipid 141.2 Intake, Oral 0 Intake, 788.8 TPN/PPN Output, 555 Drainage Output, Urine 250 Exam General Appearance: intermittently agitated, moving all extremities Head: atraumatic Neck: supple, trach in place, blood around trach site but no lidia bleeding Respiratory: no respiratory distress, clear anteriorly, lungs expand symmetrically, trachea midline Cardiovascular: regular rate/rhythm, tachycardia, S1 and S2 heard Abdomen: CONNIE drains in place, NG tube has bloody fluid drainage Extremities: warm and dry Skin: no cyanosis or edema Results Last 24 Hrs of Lab Results: Laboratory Tests 05/15/16 0515: Fibrinogen Activity 494 H 05/15/16 0515: Fibrin Degrad Products >10 but < 40 ug/ml H, D-Dimer 916 H, CBC w Diff NO MAN DIFF REQ, RBC 2.94 L, MCV 93.5, MCH 31.1 H, RDW 15.2 H, MPV 9.4, Gran % 78.9 H, Lymphocytes % 8.5 L, Monocytes % 9.5 H, Eosinophils % 2.6, Basophils % 0.5, Absolute Granulocytes 7.5 H, Absolute Lymphocytes 0.8 L, Absolute Monocytes 0.9 H, Absolute Eosinophils 0.2, Absolute Basophils 0, PUBS MCHC 33.3 05/15/16 0242: Anion Gap 10, Estimated GFR > 60, Glucose 143 H, Calcium 8.6, Phosphorus 4.3, Magnesium 2.0, Total Bilirubin 1.7 H, AST 50, ALT 43, Albumin 2.3 L, Prealbumin 4.7 L, Triglycerides 139, PT 15.5 H, INR 1.48 H, APTT 39 H, CBC w Diff NO MAN DIFF REQ, RBC 3.04 L, MCV 93.9, MCH 31.0, RDW 15.3 H, MPV 10.1, Gran % 79.1 H, Lymphocytes % 9.5 L, Monocytes % 8.4, Eosinophils % 2.7, Basophils % 0.3, Absolute Granulocytes 7.4 H, Absolute Lymphocytes 0.9 L, Absolute Monocytes 0.8 H, Absolute Eosinophils 0.3, Absolute Basophils 0, PUBS MCHC 33.0 05/14/16 1906: CBC w Diff NO MAN DIFF REQ, RBC 2.96 L, MCV 94.6 H, MCH 31.0, RDW 15.3 H, MPV 10.5 H, Gran % 78.8 H, Lymphocytes % 9.9 L, Monocytes % 7.2, Eosinophils % 3.0, Basophils % 1.1, Absolute Granulocytes 6.7 H, Absolute Lymphocytes 0.8 L, Absolute Monocytes 0.6, Absolute Eosinophils 0.3, Absolute Basophils 0.1, PUBS MCHC 32.8 L Impression/Plan Impression/Plan Impression/Plan: 1. 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 2. Respiratory failure s/p tracheostomy placement. Now with possible hemoptysis. 3. New episode of blood suctioned from NG tube, rule out upper GI bleed. The patient has not had overt signs of bleeding, noting he has not had any melena or bright red blood per rectum. 4. Ongoing encephalopathy - hepatic? metabolic? The patient has had multiple studies for evaluation including an EEG and CT scan of the brain. He continues to receive lactulose for presumed hepatic encephalopathy. He received high-dose thiamine. He remains on 1 mg of Ativan per hour for severe agitation. 5. Fever, now improved, cultures negative so far, on meropenem. 6. Deep tissue injury - right scapula area, improving. 7. Severe malnutrition - on TPN. 8. 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 Recommendations: * Discussed bleeding with GI. If the patient has evidence of active hemorrhage he will undergo endoscopy. We discussed the risks of the procedure, noting EGD may interfere with the patient's known perforation. Endoscopy will only be done if the patient is actively hemorrhaging. Call GI if evidence of active bleeding. * Monitor CBCs every 6 hours. * No medications or flushes are to be put down the [place] or the NG tube. * Decrease Ativan drip down to 0.8 mg per hour. * Follow-up psychiatry recommendations for agitation, appreciate input. * Check daily abdominal x-rays to determine the position of the Dobbhoff tube. * Check a chest x-ray today, regarding new possible hemoptysis. * Continue lactulose enemas. The patient's family is requesting that the rectal to be discontinued. I explained to them that the patient continues to require lactulose and we are unable to administer the medication any other way. They understand the nature of the situation. * Continue meropenem as per ID. * Change to half normal saline at 50 ML per hour. * Continue TPN. * MVI, thiamine, folate to continue in TPN. * Await Proline placement. * Discontinue PICC line after Proline secured - ordered today. * Discontinue Ann catheter, [place] catheter can be used. * Continue DVT and GI prophylaxis. * Skin care protocol to continue. * Out of bed to chair daily. * Give breaks from Alps periodically as per family request. * Continue all supportive care. * Family updated at the bedside. TTS 60
--- NOTE | 2016-05-15 08:55 | NUR ---
AROUND 0330 PT COUGHED UP LARGE CLOT ON BEDSIDE SHEET. PT CONTINUED TO HAVE INCREASED BLOOD FROM BOTH TRACHEOSTOMY SITE AND NGT TUBE. MD'S CHRISTINE DICKINSON KELMA TO BEDSIDE. SEE MD EVENT NOTE.
--- NOTE | 2016-05-15 10:47 | PN- Infect Dx ---
Subjective Subjective: Afebrile. Recent events noted with bleeding from the NG tube and around the trach site. He remains agitated requiring continued treatment with Ativan and plans are apparently in place to reintubate. Objective Last 24 Hrs of Vital Signs/I&O Vital Signs Date Time Temp Pulse Resp B/P Pulse O2 O2 Flow FiO2 Ox Delivery Rate 05/15 0907 30 05/15 0751 95 Trach Mask 30% 05/15 0455 96 Trach Mask 30% 05/15 0400 97.7 110 27 162/81 05/15 0400 97 Trach Mask 30% 05/15 0208 97 Trach Mask 30% 05/15 0000 97.9 106 24 118/72 05/15 0000 98 Trach Mask 30% 05/15 0000 97.9 106 24 118/72 98 Trach Mask 30% 05/14 2200 97.8 88 18 112/54 05/14 2000 97.8 78 16 99/61 05/14 2000 96 Trach Mask 30% 05/14 1606 96 Trach Mask 30% 05/14 1600 97.2 100 22 120/60 05/14 1600 98 Trach Mask 30% 05/14 1600 97.2 100 22 120/60 98 Trach Mask 30% 05/14 1200 98.8 104 30 150/74 05/14 1200 97 Trach Mask 30% Intake & Output 05/15 1600 05/15 0800 05/15 0000 Intake Total 1606.4 1427.0 Output Total 950 805 Balance 656.4 622.0 Intake, IV 537.9 497 Intake, Lipid 174.5 141.2 Intake, Oral 0 0 Intake, Other 30 Intake, 864 788.8 TPN/PPN Output, 555 Drainage Output, 400 Gastric Drainage Output, Stool 200 Output, Urine 350 250 Patient 287 lb Weight Physical Exam Other Physical Findings: He is agitated on the trach mask Neck trach site with bleeding noted Lungs are clear Heart regular rhythm with no murmur Abdomen is distended, nontender with positive bowel sounds; minimal output from drain #1 Extremities no cyanosis, clubbing or edema; PICC remains in the right upper extremity with no inflammation at the site Ann catheter remains in place Results Last 24 Hours of Lab Results: Laboratory Tests 05/15 05/15 0515 0515 Coagulation Fibrinogen Activity (200 - 393 MG/DL) 494 H Fibrin Degrad Products (< 10 ug/ml) >10 but < 40 ug/ml H D-Dimer (70 - 232 ng/ml) 916 H Hematology CBC w Diff NO MAN DIFF REQ WBC (4.8 - 10.8 /CUMM) 9.5 RBC (4.70 - 6.10 /CUMM) 2.94 L Hgb (14.0 - 18.0 G/DL) 9.1 L Hct (42 - 52 %) 27.5 L MCV (80.0 - 94.0 FL) 93.5 MCH (27.0 - 31.0 PG) 31.1 H RDW (11.5 - 14.5 %) 15.2 H Plt Count (130 - 400 /CUMM) 148 MPV (7.4 - 10.4 FL) 9.4 Gran % (42.2 - 75.2 %) 78.9 H Lymphocytes % (20.5 - 51.1 %) 8.5 L Monocytes % (1.7 - 9.3 %) 9.5 H Eosinophils % (0 - 5 %) 2.6 Basophils % (0.0 - 2.0 %) 0.5 Absolute Granulocytes (1.4 - 6.5 /CUMM) 7.5 H Absolute Lymphocytes (1.2 - 3.4 /CUMM) 0.8 L Absolute Monocytes (0.10 - 0.60 /CUMM) 0.9 H Absolute Eosinophils (0.0 - 0.7 /CUMM) 0.2 Absolute Basophils (0.0 - 0.2 /CUMM) 0 PUBS MCHC (33.0 - 37.0 G/DL) 33.3 05/15 05/14 0242 1906 Chemistry Sodium (137 - 145 mmol/L) 145 Potassium (3.5 - 5.1 mmol/L) 4.1 Chloride (98 - 107 mmol/L) 108 H Carbon Dioxide (22 - 30 mmol/L) 27 Anion Gap (5 - 16) 10 BUN (9 - 20 mg/dL) 23 H Creatinine (0.7 - 1.2 mg/dL) 0.7 Estimated GFR (>60 ml/min) > 60 Glucose (65 - 99 mg/dL) 143 H Calcium (8.4 - 10.2 mg/dL) 8.6 Phosphorus (2.5 - 4.5 mg/dL) 4.3 Magnesium (1.6 - 2.3 mg/dL) 2.0 Total Bilirubin (0.2 - 1.3 mg/dL) 1.7 H AST (17 - 59 U/L) 50 ALT (21 - 72 U/L) 43 Albumin (3.5 - 5.0 g/dL) 2.3 L Prealbumin (17.6 - 36.0 mg/dL) 4.7 L Triglycerides (<150 mg/dL) 139 Coagulation PT (9.4 - 12.5 SEC) 15.5 H INR (0.90 - 1.17) 1.48 H APTT (25 - 37 SEC) 39 H Hematology CBC w Diff NO MAN DIFF REQ NO MAN DIFF REQ WBC (4.8 - 10.8 /CUMM) 9.4 8.5 RBC (4.70 - 6.10 /CUMM) 3.04 L 2.96 L Hgb (14.0 - 18.0 G/DL) 9.4 L 9.2 L Hct (42 - 52 %) 28.5 L 28.0 L MCV (80.0 - 94.0 FL) 93.9 94.6 H MCH (27.0 - 31.0 PG) 31.0 31.0 RDW (11.5 - 14.5 %) 15.3 H 15.3 H Plt Count (130 - 400 /CUMM) 157 149 MPV (7.4 - 10.4 FL) 10.1 10.5 H Gran % (42.2 - 75.2 %) 79.1 H 78.8 H Lymphocytes % (20.5 - 51.1 %) 9.5 L 9.9 L Monocytes % (1.7 - 9.3 %) 8.4 7.2 Eosinophils % (0 - 5 %) 2.7 3.0 Basophils % (0.0 - 2.0 %) 0.3 1.1 Absolute Granulocytes (1.4 - 6.5 /CUMM) 7.4 H 6.7 H Absolute Lymphocytes (1.2 - 3.4 /CUMM) 0.9 L 0.8 L Absolute Monocytes (0.10 - 0.60 /CUMM) 0.8 H 0.6 Absolute Eosinophils (0.0 - 0.7 /CUMM) 0.3 0.3 Absolute Basophils (0.0 - 0.2 /CUMM) 0 0.1 PUBS MCHC (33.0 - 37.0 G/DL) 33.0 32.8 L Last 24 Hours of Garcia Results: No recent cultures Recent Imaging Studies: Abdominal x-ray May 15 feeding tube partially visualized and appears to be in the proximal stomach Assessment/Plan Impression: Status remains poor with recent bleeding noted, with source not clearly identified, but with H&H stable, and with agitation, for which he is apparently to be reintubated. He does remain afebrile with a normal white blood cell count on Meropenem, restarted 3 days ago empirically because of the concern of an ongoing duodenal leak, now 23 days status post laparoscopic Clint plication for perforated duodenum, with minimal drainage noted from drain #1, which had markedly turbid fluid, and with the recent CT negative for any evidence of leak or collection. Apparently the PICC was felt to be pulled back too far and he is scheduled for placement of a Pro-Line. Suggestion: 1. Further management regarding his recent bleeding per Pulmonary and GI 2. Further management regarding his presumed leak and feeding via the Dobhoff tube per Surgery 3. Await placement of Pro-Line so that the PICC can be removed 4. Continue Meropenem
--- NOTE | 2016-05-15 12:31 | ULTRASOUND REPORT ---
RIGHT-SIDED TUNNELED PROLINE CATHETER PLACEMENT INTERVENTIONAL RADIOLOGIST: Ayden Hoffman M.D. CLINICAL INDICATION: Needs IV access for long-term antibiotics. ACCESS: Right internal jugular vein and right chest wall. GUIDANCE: Ultrasound and Fluoroscopy 22 seconds. SEDATION: The patient was on a propofol drip, and therefore conscious sedation was not utilized. A registered nurse monitored the patient and the patient's vital signs throughout the procedure. COMPLICATIONS: None. CONTRAST: None. INFORMED CONSENT: Informed consent was obtained from the patient's inbound customer service representative yesterday by Dr. Jaspreet Scales prior to the procedure. During this process, the procedure and potential alternatives were explained, along with the intended outcome and benefits. The risks of the procedure including the possibility of an unsuccessful procedure, as well as the risk of not doing the procedure were discussed. The inbound customer service representative was given the opportunity to ask questions regarding the procedure and appeared competent to make decisions. A signed consent form documenting this discussion was placed in the medical record. A time out procedure was performed. DESCRIPTION: The right neck and chest wall were prepped and draped. Ultrasound guidance for vascular access was utilized with ultrasound evaluation of the potential access site and documentation that the right internal jugular vein was patent. Under real-time ultrasound, I visualized the vascular needle entry and recorded and reported US images from this in our PACS system. Under fluoroscopic guidance, a 0.018 guidewire was advanced into the right atrium. Fluoroscopic landmarks were utilized to calculate the catheter length. A tunnel was then created along the right chest wall to the jugular puncture site. A 6-Beninese Pro-Line catheter was then pulled through the tunnel. A 7-Beninese peel-away sheath was then placed into the right jugular vein. During a breath-hold, the Pro-Line was passed through the peel-away sheath and positioned with its tip in the mid-right atrium. The peel-away sheath was removed and the wings of the catheter were secured to the skin using 0 silk. The jugular entry site was closed with Dermabond. The lumens of the Pro-Line catheter were flushed with normal saline and then hep-lock. A sterile dressing was applied. IMPRESSION: Successful placement of tunneled right sided jugular Pro-Line catheter.
[2016-05-15 13:30] LABS: ABSOLUTE BASOPHIL COUNT 0 /CUMM (0.0-0.2); ABSOLUTE EOSINOPHIL COUNT 0.1 /CUMM (0.0-0.7); ABSOLUTE GRANULOCYTE CT 5.4 /CUMM (1.4-6.5); ABSOLUTE LYMPH COUNT 0.7 /CUMM (1.2-3.4); ABSOLUTE MONOCYTE COUNT 0.5 /CUMM (0.10-0.60); BASOPHIL % 0.2 % (0.0-2.0); GRANULOCYTE % 80.2 % (42.2-75.2); HEMATOCRIT 25.5 % (42-52); MEAN CORPUSCULAR HGB 30.6 PG (27.0-31.0); MEAN CORPUSCULAR HGB CONC 32.8 G/DL (33.0-37.0); MEAN CORPUSCULAR VOLUME 93.5 FL (80.0-94.0); MEAN PLATELET VOLUME 10.5 FL (7.4-10.4); PLATELET COUNT 139 /CUMM (130-400); RED BLOOD CELL CT 2.73 /CUMM (4.70-6.10); WHITE BLOOD CELL COUNT 6.7 /CUMM (4.8-10.8)
--- NOTE | 2016-05-15 14:27 | RADIOLOGY REPORT ---
EXAMINATION: XR PORTABLE CHEST CLINICAL INFORMATION: Tracheostomy in place. Status post right-sided tunnel proline catheter placement. COMPARISON: Chest done on 05/14/2016. TECHNIQUE: Portable view of the chest was obtained. FINDINGS: There is a new right-sided central catheter identified, tip of the catheter is projecting at the level of the proximal to mid superior vena cava. The exact positioning of the catheter is difficult since part of the catheter is obscured by overlying monitoring device. Tracheostomy tube is identified, unchanged. Enteric tube is visualized, unchanged. Both lung nathan are symmetrically expanded. The cardiomediastinal silhouette is enlarged. IMPRESSION: Interval placement of a right-sided central catheter with its tip projecting at the level of the proximal to mid superior vena cava.
--- NOTE | 2016-05-15 14:41 | PN- Psychiatry ---
Assessment/Plan Impression: 51-year-old male stage IV cirrhosis secondary to alcohol use and a perforated duodenal ulcer with peritonitis, now status post surgical repair on 04/23. Evaluated lying in bed in soft wrist restraints in the critical care unit. Pt is sedated on propofol drip and Ativan drip (0.8/hr) due to increased agitation. He is now again placed on ventilator. Unable to participate in interview. Differential diagnosis Delirium due to multiple etiologies Alcohol use disorder severe Suggestion: 1. Please increase haloperidol dose to 1.5 mg every 8 hours when necessary for agitation. We may require a higher dose. Continue to monitor EKG and electrolytes, hold Haldol for QTC above 475 ms. 2. Continue CIWA protocol and medicate appropriately. Continue to monitor for rebound signs and symptoms of benzodiazepine withdrawal including increased confusion and agitation. 3. Please continue to avoid benzodiazepines, opioid analgesics, and meds with strong anticholinergic properties as much as possible to prevent further confusion. 4. Please continue the following nonpharmacologic interventions: -Avoid nursing and medical procedures during sleep hours whenever possible - Cluster at night interventions that must be completed as much as possible to minimize sleep disruption - Decrease noise in patient area during sleeping hours - Reduce lighting at night - Ensure patient has any sensory aids close by that he regularly uses 5. Please consider decreasing Ativan by 10%-20% daily to prevent withdrawl symnptoms. Thank you for including psychiatry in this case we'll continue to follow. Nelson Morton APRN, pager [phone]. Subjective Subjective: .
--- NOTE | 2016-05-15 15:39 | PN- Gastroenterology ---
Assessment/Plan Assessment/Recommendations: Assessment: Mr. Corona is a 50 year old male with a history of etoh abuse/ cirrhosis admitted with a perforated viscus s/p surgical repair who continues to require ICU level care who has recently been trached and continued on TPN who was noted to have bright blood in his NG tube, but he has remained hemodynamically stable throughout and his hemoglobin is stable which argues against a hemodynamically significant GI bleed. He is also without melena which also argues against a hemodynamically significant GI bleed. I feel it is likely that the bleeding he is having is likely coming from stress gastritis and possible NG tube trauma, but considering his history ulcer bleeding and possibly even variceal bleeding is possible, but I would expect him to have more profuse hematemesis if he was having a variceal bleed. Considering his recent surgery for a perforated viscus he is at high risk for a perforation should endoscopy be performed and I would therefore only do a upper endoscopy if he has obvious evidence of overt ongoing GI blood loss. Recommendations: 1. Clamp NG tube. 2. Follow CBCs every 8 hours and transfuse as needed to keep his hemoglobin greater than 7 or as per cardiology recommendations. 3. Change IV Protonix to a IV Protonix drip. 4. Maintain 2 large-bore IVs at all times. 5. Avoid NSAIDs. 6. Notify GI for signs of overt GI bleeding such as profuse hematemesis or melena or any unexplained hemodynamic instability. 7. If he continues to have ongoing GI blood loss consideration will then be given for a therapeutic endoscopy, but considering his recent surgical history of a perforated viscus repair for which he is currently been maintained on TPN he is at high risk for a recurrent perforation if this is attempted. Overall prognosis remains guarded. I will continue to follow this patient and make further recommendations based on his clinical course and repeat blood work. Problem List: 1. EtOH dependence 2. Alcoholic hepatitis 3. Ascites 4. Abdominal pain Subjective Subjective: Pt began to have BRB in NGT early this morning which was described as significant. The bleeding was not associated with any drop in his blood pressure and he has not had any melena. He was transfused early this morning with 1 unit of packed red blood cells. Patient is trached and is not able to give any meaningful history. Objective Vital Signs and I&Os Vital Signs Date Time Temp Pulse Resp B/P Pulse O2 O2 Flow FiO2 Ox Delivery Rate 05/15 1428 30 05/15 1234 30 05/15 0907 30 05/15 0751 95 Trach Mask 30% 05/15 0455 96 Trach Mask 30% 05/15 0400 97.7 110 27 162/81 05/15 0400 97 Trach Mask 30% 05/15 0208 97 Trach Mask 30% 05/15 0000 97.9 106 24 118/72 05/15 0000 98 Trach Mask 30% 05/15 0000 97.9 106 24 118/72 98 Trach Mask 30% 05/14 2200 97.8 88 18 112/54 05/14 2000 97.8 78 16 99/61 05/14 2000 96 Trach Mask 30% 05/14 1606 96 Trach Mask 30% 05/14 1600 97.2 100 22 120/60 05/14 1600 98 Trach Mask 30% 05/14 1600 97.2 100 22 12060 98 Trach Mask 30% Intake & Output 05/15 1600 05/15 0400 05/14 1600 05/14 0400 05/13 1600 05/13 0400 Intake Total 1606.4 1427.0 2746.0 1788.0 3112.4 1773.0 Output Total 189 001 0049 1035 2865 2100 Balance 656.4 622.0 441.0 753.0 247.4 -327.0 Intake, IV 537.9 497 584 715 0591.0 730 Intake, Lipid 174.5 141.2 269.0 166.0 288.4 136.0 Intake, Oral 0 0 0 Intake, Other 30 130 50 Intake, 864 788.8 7153 844 3350 907 TPN/PPN Output, 555 5332 527 9216 950 Drainage Output, 400 125 200 75 Gastric Drainage Output, Stool 200 540 120 100 500 Output, Urine 350 250 515 315 750 575 Patient 287 lb 286 lb Weight Physical Exam General Appearance: mild distress Head: atraumatic Neck: tracheostomy in place Respiratory: decreased breath sounds Cardiovascular: regular rate/rhythm Abdomen: soft, abnormal bowel sounds, distention Extremities: pedal edema Current Medications: Current Medications Sig/Roberto Start time Last Medication Dose Route Stop Time Status Admin Albuterol Sulfate 3 ML EVERY 4 HRS/AWAKE 05/01 2000 AC 05/15 INH 1225 Fat Emulsion 450 ML 1900 05/15 190 AC Intravenous IV 05/16 1859 Fat Emulsion 450 ML 1900 05/14 1900 AC 05/14 Intravenous IV 05/15 185 1934 Fat Emulsion 450 ML 1900 05/13 1900 DC 05/13 Intravenous IV 05/14 185 1946 Haloperidol 1.5 MG Q8P PRN 05/14 1345 AC IM Heparin Sodium 5,000 UNIT Q8 04/24 1400 DC 05/14 (Porcine) SC 2140 Hydromorphone HCl 2 MG Q4-PRN PRN 05/04 1745 AC 05/15 IV 0434 Insulin Aspart 0 Q8 05/08 1400 AC 05/14 SC 2152 Lactulose 1 BOT BID 05/11 2200 AC 05/14 AK 2141 Lorazepam 50 MG Q24H 05/12 0745 AC 05/15 Sodium Chloride 500 ML IV 0500 Meropenem 1 GM IQ8 05/13 0000 AC 05/15 IV 0846 Non-Formulary 0 SEE ADMIN CRITERIA 05/15 0900 CAN Medication ANY Nystatin 5 ML 4 TIMES/DAY 05/13 1000 AC 05/14 PO 2140 Ondansetron HCl 4 MG Q8P PRN 04/22 0600 AC IV Pantoprazole Sodium 40 MG Q5H 05/15 0415 AC 05/15 Sodium Chloride 100 ML IV 0846 Pantoprazole Sodium 40 MG BID 04/22 2200 DC 05/14 IV 2140 Phytonadione 10 MG ONCE ONE 05/15 0515 DC 05/15 SC 05/15 0516 0522 Propofol 1,000 MG Q8H 05/15 0915 AC N/A 1 UNIT IV Sodium Chloride 500 ML BOLUS ONE 05/15 1145 DC IV 05/15 1244 Sodium Chloride 1,000 ML Q20H 05/14 2000 AC 05/15 IV 0003 Sodium Chloride 1,000 ML .Q20H 05/12 0945 DC 05/14 IV 0458 Total Parenteral 1 UNIT 0 05/15 190 AC Nutrition IV 05/16 185 Total Parenteral 1 UNIT 0 05/14 190 DC 05/14 Nutrition IV 05/14 1901 193 Total Parenteral 1 UNIT 1900 05/13 190 DC 05/13 Nutrition IV 05/14 1859 194 Results Pertinent Lab Results: Laboratory Tests 05/15 05/15 1245 0515 Coagulation Fibrinogen Activity (200 - 393 MG/DL) 494 H Hematology CBC w Diff NO MAN DIFF REQ WBC (4.8 - 10.8 /CUMM) 6.7 RBC (4.70 - 6.10 /CUMM) 2.73 L Hgb (14.0 - 18.0 G/DL) 8.4 L Hct (42 - 52 %) 25.5 L MCV (80.0 - 94.0 FL) 93.5 MCH (27.0 - 31.0 PG) 30.6 RDW (11.5 - 14.5 %) 16.0 H Plt Count (130 - 400 /CUMM) 139 MPV (7.4 - 10.4 FL) 10.5 H Gran % (42.2 - 75.2 %) 80.2 H Lymphocytes % (20.5 - 51.1 %) 10.4 L Monocytes % (1.7 - 9.3 %) 7.2 Eosinophils % (0 - 5 %) 2.0 Basophils % (0.0 - 2.0 %) 0.2 Absolute Granulocytes (1.4 - 6.5 /CUMM) 5.4 Absolute Lymphocytes (1.2 - 3.4 /CUMM) 0.7 L Absolute Monocytes (0.10 - 0.60 /CUMM) 0.5 Absolute Eosinophils (0.0 - 0.7 /CUMM) 0.1 Absolute Basophils (0.0 - 0.2 /CUMM) 0 PUBS MCHC (33.0 - 37.0 G/DL) 32.8 L 05/15 0515 Coagulation Fibrin Degrad Products (< 10 ug/ml) >10 but < 40 ug/ml H D-Dimer (70 - 232 ng/ml) 916 H Hematology CBC w Diff NO MAN DIFF REQ WBC (4.8 - 10.8 /CUMM) 9.5 RBC (4.70 - 6.10 /CUMM) 2.94 L Hgb (14.0 - 18.0 G/DL) 9.1 L Hct (42 - 52 %) 27.5 L MCV (80.0 - 94.0 FL) 93.5 MCH (27.0 - 31.0 PG) 31.1 H RDW (11.5 - 14.5 %) 15.2 H Plt Count (130 - 400 /CUMM) 148 MPV (7.4 - 10.4 FL) 9.4 Gran % (42.2 - 75.2 %) 78.9 H Lymphocytes % (20.5 - 51.1 %) 8.5 L Monocytes % (1.7 - 9.3 %) 9.5 H Eosinophils % (0 - 5 %) 2.6 Basophils % (0.0 - 2.0 %) 0.5 Absolute Granulocytes (1.4 - 6.5 /CUMM) 7.5 H Absolute Lymphocytes (1.2 - 3.4 /CUMM) 0.8 L Absolute Monocytes (0.10 - 0.60 /CUMM) 0.9 H Absolute Eosinophils (0.0 - 0.7 /CUMM) 0.2 Absolute Basophils (0.0 - 0.2 /CUMM) 0 PUBS MCHC (33.0 - 37.0 G/DL) 33.3 05/15 05/14 0242 1906 Chemistry Sodium (137 - 145 mmol/L) 145 Potassium (3.5 - 5.1 mmol/L) 4.1 Chloride (98 - 107 mmol/L) 108 H Carbon Dioxide (22 - 30 mmol/L) 27 Anion Gap (5 - 16) 10 BUN (9 - 20 mg/dL) 23 H Creatinine (0.7 - 1.2 mg/dL) 0.7 Estimated GFR (>60 ml/min) > 60 Glucose (65 - 99 mg/dL) 143 H Calcium (8.4 - 10.2 mg/dL) 8.6 Phosphorus (2.5 - 4.5 mg/dL) 4.3 Magnesium (1.6 - 2.3 mg/dL) 2.0 Total Bilirubin (0.2 - 1.3 mg/dL) 1.7 H AST (17 - 59 U/L) 50 ALT (21 - 72 U/L) 43 Albumin (3.5 - 5.0 g/dL) 2.3 L Prealbumin (17.6 - 36.0 mg/dL) 4.7 L Triglycerides (<150 mg/dL) 139 Coagulation PT (9.4 - 12.5 SEC) 15.5 H INR (0.90 - 1.17) 1.48 H APTT (25 - 37 SEC) 39 H Hematology CBC w Diff NO MAN DIFF REQ NO MAN DIFF REQ WBC (4.8 - 10.8 /CUMM) 9.4 8.5 RBC (4.70 - 6.10 /CUMM) 3.04 L 2.96 L Hgb (14.0 - 18.0 G/DL) 9.4 L 9.2 L Hct (42 - 52 %) 28.5 L 28.0 L MCV (80.0 - 94.0 FL) 93.9 94.6 H MCH (27.0 - 31.0 PG) 31.0 31.0 RDW (11.5 - 14.5 %) 15.3 H 15.3 H Plt Count (130 - 400 /CUMM) 157 149 MPV (7.4 - 10.4 FL) 10.1 10.5 H Gran % (42.2 - 75.2 %) 79.1 H 78.8 H Lymphocytes % (20.5 - 51.1 %) 9.5 L 9.9 L Monocytes % (1.7 - 9.3 %) 8.4 7.2 Eosinophils % (0 - 5 %) 2.7 3.0 Basophils % (0.0 - 2.0 %) 0.3 1.1 Absolute Granulocytes (1.4 - 6.5 /CUMM) 7.4 H 6.7 H Absolute Lymphocytes (1.2 - 3.4 /CUMM) 0.9 L 0.8 L Absolute Monocytes (0.10 - 0.60 /CUMM) 0.8 H 0.6 Absolute Eosinophils (0.0 - 0.7 /CUMM) 0.3 0.3 Absolute Basophils (0.0 - 0.2 /CUMM) 0 0.1 PUBS MCHC (33.0 - 37.0 G/DL) 33.0 32.8 L 05/14 05/14 0510 0400 Blood Gas pH (7.35 - 7.45 PH) 7.42 pCO2 (35 - 45 TORR) 38 pO2 (80 - 100 TORR) 107 H HCO3 (21 - 28 MEQ/L) 24 ABG O2 Sat (Measured) (>96.0 %) 97.0 P-50 (Temp Corrected) Y Carboxyhemoglobin (1.5 - 5.0 %) 0.3 L O2 Concentration % 30% Temperature (97.0 - 100.0 FARH) 98.3 O2 Delivery Method TM Chemistry Sodium (137 - 145 mmol/L) 141 Potassium (3.5 - 5.1 mmol/L) 4.0 Chloride (98 - 107 mmol/L) 107 Carbon Dioxide (22 - 30 mmol/L) 28 Anion Gap (5 - 16) 6 BUN (9 - 20 mg/dL) 22 H Creatinine (0.7 - 1.2 mg/dL) 0.7 Estimated GFR (>60 ml/min) > 60 Glucose (65 - 99 mg/dL) 117 H Calcium (8.4 - 10.2 mg/dL) 8.6 Phosphorus (2.5 - 4.5 mg/dL) 4.2 Magnesium (1.6 - 2.3 mg/dL) 2.0 Total Bilirubin (0.2 - 1.3 mg/dL) 1.9 H AST (17 - 59 U/L) 45 ALT (21 - 72 U/L) 42 Albumin (3.5 - 5.0 g/dL) 2.3 L Lipase (23 - 300 U/L) 688 H Coagulation PT (9.4 - 12.5 SEC) 15.5 H INR (0.90 - 1.17) 1.48 H Hematology CBC w Diff NO MAN DIFF REQ WBC (4.8 - 10.8 /CUMM) 10.4 RBC (4.70 - 6.10 /CUMM) 3.06 L Hgb (14.0 - 18.0 G/DL) 9.5 L Hct (42 - 52 %) 28.8 L MCV (80.0 - 94.0 FL) 94.1 H MCH (27.0 - 31.0 PG) 31.0 RDW (11.5 - 14.5 %) 16.0 H Plt Count (130 - 400 /CUMM) 122 L MPV (7.4 - 10.4 FL) 10.2 Gran % (42.2 - 75.2 %) 78.1 H Lymphocytes % (20.5 - 51.1 %) 11.1 L Monocytes % (1.7 - 9.3 %) 8.0 Eosinophils % (0 - 5 %) 2.5 Basophils % (0.0 - 2.0 %) 0.3 Absolute Granulocytes (1.4 - 6.5 /CUMM) 8.2 H Absolute Lymphocytes (1.2 - 3.4 /CUMM) 1.2 Absolute Monocytes (0.10 - 0.60 /CUMM) 0.8 H Absolute Eosinophils (0.0 - 0.7 /CUMM) 0.3 Absolute Basophils (0.0 - 0.2 /CUMM) 0 PUBS MCHC (33.0 - 37.0 G/DL) 33.0 Miscellaneous Phlebotomy Draw Site LEFT RADIAL 05/13 05/13 9593 0795 Blood Gas pH (7.35 - 7.45 PH) 7.38 pCO2 (35 - 45 TORR) 40 pO2 (80 - 100 TORR) 100 HCO3 (21 - 28 MEQ/L) 24 ABG O2 Sat (Measured) (>96.0 %) 96.0 P-50 (Temp Corrected) Y Carboxyhemoglobin (1.5 - 5.0 %) 0.3 L O2 Concentration % 35% Temperature (97.0 - 100.0 FARH) 97.2 O2 Delivery Method TM Chemistry Sodium (137 - 145 mmol/L) 145 Potassium (3.5 - 5.1 mmol/L) 3.8 Chloride (98 - 107 mmol/L) 111 H Carbon Dioxide (22 - 30 mmol/L) 26 Anion Gap (5 - 16) 8 BUN (9 - 20 mg/dL) 21 H Creatinine (0.7 - 1.2 mg/dL) 0.7 Estimated GFR (>60 ml/min) > 60 Glucose (65 - 99 mg/dL) 123 H Calcium (8.4 - 10.2 mg/dL) 8.7 Phosphorus (2.5 - 4.5 mg/dL) 3.9 Magnesium (1.6 - 2.3 mg/dL) 2.0 Total Bilirubin (0.2 - 1.3 mg/dL) 2.2 H Direct Bilirubin (< 0.4 mg/dL) 1.2 H AST (17 - 59 U/L) 52 ALT (21 - 72 U/L) 40 Alkaline Phosphatase (< 127 U/L) 125 Total Protein (6.3 - 8.2 g/dL) 5.2 L Albumin (3.5 - 5.0 g/dL) 2.3 L Lipase (23 - 300 U/L) 932 H Hematology CBC w Diff NO MAN DIFF REQ WBC (4.8 - 10.8 /CUMM) 9.6 RBC (4.70 - 6.10 /CUMM) 3.06 L Hgb (14.0 - 18.0 G/DL) 9.6 L Hct (42 - 52 %) 28.6 L MCV (80.0 - 94.0 FL) 93.7 MCH (27.0 - 31.0 PG) 31.3 H RDW (11.5 - 14.5 %) 16.1 H Plt Count (130 - 400 /CUMM) 127 L MPV (7.4 - 10.4 FL) 10.3 Gran % (42.2 - 75.2 %) 76.9 H Lymphocytes % (20.5 - 51.1 %) 12.7 L Monocytes % (1.7 - 9.3 %) 7.7 Eosinophils % (0 - 5 %) 2.0 Basophils % (0.0 - 2.0 %) 0.7 Absolute Granulocytes (1.4 - 6.5 /CUMM) 7.4 H Absolute Lymphocytes (1.2 - 3.4 /CUMM) 1.2 Absolute Monocytes (0.10 - 0.60 /CUMM) 0.7 H Absolute Eosinophils (0.0 - 0.7 /CUMM) 0.2 Absolute Basophils (0.0 - 0.2 /CUMM) 0.1 PUBS MCHC (33.0 - 37.0 G/DL) 33.4 Miscellaneous Phlebotomy Draw Site RIGHT RADIAL
[2016-05-15 16:00] VITALS: BP 124/64; BP 94/58
--- NOTE | 2016-05-15 19:00 | NUR ---
RESUMED PT CARE AT 0730. PT WAS PLACED BACK ON MECHANICAL VENTILATION AND PROPOFOL FOR SEDATION. MULTIPLE ATTEMPTS WERE MADE TO SEDATE PT TO A SAS OF 2, HOWEVER, PT BP WOULD NOT TOLERATE AND A 500ML NS BOLUS WAS ORDERED AND GIVEN. SAS OF 3 AND 4 WERE ACHIEVEABLE. PT WAS BROUGHT DOWN TO IR FOR PROLINE PLACEMENT TO W AND TOLERATED WELL WITH PROPOFOL FOR SEDATION. UPON RETURN FROM IR, IV TUBING WAS CHANGE TO ALL IVS THAT WOULD RUN THROUGH THE PROLINE, AND ADDITIONAL PERIPHERAL IV ACCESS WAS STILL NEEDED AND OBTAINED. JOHN Z TO BEDSIDE FOR PIV PLACEMENT AND TO DISCONTINUE PICC LINE. DURING MULTIPLE TIMES DURING THE DAY, PT COUGHED EITHER COUOGHED UP BLOOD OR CLOTS FROM THE MOUTH. IN ADDITION SMALL AMOUNTS OF BLOOD WAS SUCTIONED FROM THE TRACH. DR FARIAS NOTIFIED. MARIOLA PAEZ TO THE BEDSIDE FOR THE FIRST CLOT AND TO ASSESS THE PT. VSS. DR MESA NOTIFIED AND TO THE BEDSIDE FOR THE SECOND CLOT.VSS. CBC OBTAINED AFTER EACH EVENT.
[2016-05-15 19:17] LABS: ABSOLUTE BASOPHIL COUNT 0 /CUMM (0.0-0.2); ABSOLUTE EOSINOPHIL COUNT 0.1 /CUMM (0.0-0.7); ABSOLUTE GRANULOCYTE CT 5.1 /CUMM (1.4-6.5); ABSOLUTE LYMPH COUNT 0.7 /CUMM (1.2-3.4); ABSOLUTE MONOCYTE COUNT 0.6 /CUMM (0.10-0.60); BASOPHIL % 0.5 % (0.0-2.0); EOSINOPHIL % 1.9 % (0-5); HEMATOCRIT 26.5 % (42-52); MEAN CORPUSCULAR HGB 30.8 PG (27.0-31.0); MEAN CORPUSCULAR HGB CONC 33.4 G/DL (33.0-37.0); MEAN CORPUSCULAR VOLUME 92.1 FL (80.0-94.0); MEAN PLATELET VOLUME 10.4 FL (7.4-10.4); PLATELET COUNT 136 /CUMM (130-400); RBC DISTRIBUTION WIDTH 15.9 % (11.5-14.5); RED BLOOD CELL CT 2.88 /CUMM (4.70-6.10); WHITE BLOOD CELL COUNT 6.5 /CUMM (4.8-10.8)
[2016-05-15 20:00] VITALS: BP 106/63
[2016-05-16] VITALS: BP 112/70
[2016-05-16 01:35] LABS: ABSOLUTE BASOPHIL COUNT 0 /CUMM (0.0-0.2); ABSOLUTE EOSINOPHIL COUNT 0.1 /CUMM (0.0-0.7); ABSOLUTE GRANULOCYTE CT 5.3 /CUMM (1.4-6.5); ABSOLUTE LYMPH COUNT 0.7 /CUMM (1.2-3.4); ABSOLUTE MONOCYTE COUNT 0.5 /CUMM (0.10-0.60); BASOPHIL % 0.2 % (0.0-2.0); EOSINOPHIL % 1.8 % (0-5); HEMATOCRIT 26.2 % (42-52); MEAN CORPUSCULAR HGB 30.9 PG (27.0-31.0); MEAN CORPUSCULAR HGB CONC 33.4 G/DL (33.0-37.0); MEAN CORPUSCULAR VOLUME 92.6 FL (80.0-94.0); MEAN PLATELET VOLUME 9.6 FL (7.4-10.4); PLATELET COUNT 148 /CUMM (130-400); RBC DISTRIBUTION WIDTH 15.6 % (11.5-14.5); RED BLOOD CELL CT 2.83 /CUMM (4.70-6.10); WHITE BLOOD CELL COUNT 6.6 /CUMM (4.8-10.8)
[2016-05-16 04:00] VITALS: BP 130/70
--- NOTE | 2016-05-16 05:43 | PN- General Surgery ---
Subjective Subjective: The patient is seen this morning she remains intubated and despite sedation is still restless. His NG tube continues to drain scant amount of dark blood and he continues to cough up some clots as well. There were no other significant issues overnight per nursing. Objective Vital Signs and I&Os Vital Signs Date Time Temp Pulse Resp B/P Pulse O2 O2 Flow FiO2 Ox Delivery Rate 05/16 0310 30 05/16 0046 30 05/16 0000 96.5 71 20 112/70 05/16 0000 96.5 71 20 11270 95 Ventilator 05/16 0000 95 Ventilator 30% 05/15 2209 30 05/15 2000 98.8 88 22 106/63 05/15 2000 97 Ventilator 30% 05/15 1940 30 05/15 1618 30 05/15 1600 99.6 66 20 124/64 05/15 1600 98.2 82 82 94/58 95 Ventilator 30% 05/15 1600 97 Ventilator 30% 05/15 1428 30 05/15 1234 30 05/15 1200 95 Ventilator 30% 05/15 0907 30 05/15 0800 98.0 118 18 162/84 05/15 0800 98.0 118 18 170/80 100 Trach Mask 30% 05/15 0800 95 Trach Mask 30% 05/15 0751 95 Trach Mask 30% Intake & Output 05/16 0800 05/16 0000 05/15 1600 05/15 0800 05/15 0000 05/14 1600 Intake Total 2146.0 2765 1606.4 1427.0 1497.0 Output Total 1000 800 033 979 9653 Balance 1146.0 1965 656.4 622.0 212.0 Intake, IV 1301 2765 537.9 497 394 Intake, Lipid 150.0 174.5 141.2 148.0 Intake, Oral 0 0 Intake, Other 0 30 130 Intake, 695 864 788.8 825 TPN/PPN Number 400 0 Bowel Movements Output, 700 450 555 560 Drainage Output, 0 100 400 125 Gastric Drainage Output, Stool 0 200 400 Output, Urine 300 250 350 250 200 Patient 287 lb Weight Physical Exam: Gen.: Restless and intubated Skin: Warm and dry Neck: Trach collar in place surgical incision remains clean without signs of infection. Abdomen: Soft, obese, nontender, bowel sounds positive. JPs 3 holding suction with serous drainage in the bulbs. Extremities: Bilateral lower extremities are warm and the patient's calves are soft Assessment/Plan Assessment/Plan Assessment: 51-year-old male status post Clint patch repair of perforated ulcer /status post placement of tracheostomy due to respiratory failure. From a surgical standpoint the patient is stable with no intervention being required at the current time. Should the patient continued to have signs of active bleeding GI should be consulted for an upper endoscopy. Recommendations: Follow-up morning laboratory studies including coags Keep CONNIE is to suction Get a follow-up multiview and see where the KO feeding tube is located. If it has migrated status post pyloric is okay to start enteral feedings and to remove the NG tube Continue care per primary team and multiple consultation services recommendations
[2016-05-16 08:00] VITALS: BP 102/60
[2016-05-16 08:29] LABS: ABSOLUTE BASOPHIL COUNT 0 /CUMM (0.0-0.2); ABSOLUTE EOSINOPHIL COUNT 0.2 /CUMM (0.0-0.7); ABSOLUTE GRANULOCYTE CT 5.4 /CUMM (1.4-6.5); ABSOLUTE LYMPH COUNT 0.8 /CUMM (1.2-3.4); ABSOLUTE MONOCYTE COUNT 0.6 /CUMM (0.10-0.60); BASOPHIL % 0.4 % (0.0-2.0); EOSINOPHIL % 2.5 % (0-5); GRANULOCYTE % 76.9 % (42.2-75.2); HEMATOCRIT 26.4 % (42-52); MEAN CORPUSCULAR HGB 31.1 PG (27.0-31.0); MEAN CORPUSCULAR HGB CONC 33.7 G/DL (33.0-37.0); MEAN CORPUSCULAR VOLUME 92.6 FL (80.0-94.0); MEAN PLATELET VOLUME 10.5 FL (7.4-10.4); PLATELET COUNT 153 /CUMM (130-400); RBC DISTRIBUTION WIDTH 15.5 % (11.5-14.5); RED BLOOD CELL CT 2.86 /CUMM (4.70-6.10)
--- NOTE | 2016-05-16 08:35 | PN- CRCU ---
Subjective HPI/Critical Care Issues: The patient is intubated and sedated on propofol. He has had a small amount of melena reported by nursing. The patient has not had significant bleeding from the NG tube. The patient's respiratory status remained stable on 30%. Did require fluid bolus as a result of the propofol. His Ann catheter is out in his eyes and nose cannot be monitored. He remains afebrile. A Pro line has been placed and the PICC line has been removed. Objective Current Medications: Current Medications Sig/Roberto Start time Last Medication Dose Route Stop Time Status Admin Albuterol Sulfate 3 ML EVERY 4 HRS/AWAKE 05/01 2000 AC 05/16 INH 0810 Fat Emulsion 450 ML 1900 05/16 1900 AC Intravenous IV 05/17 185 Fat Emulsion 450 ML 1900 05/15 1900 AC 05/15 Intravenous IV 05/16 1859 2045 Fat Emulsion 450 ML 1900 05/14 1900 DC 05/14 Intravenous IV 05/15 185 1934 Haloperidol 1.5 MG Q8P PRN 05/14 1345 AC IM Hydromorphone HCl 2 MG Q4-PRN PRN 05/04 1745 AC 05/15 IV 2225 Insulin Aspart 0 Q8 05/08 1400 AC 05/16 SC 0715 Lactulose 1 BOT BID 05/11 2200 AC 05/15 NE 2219 Lorazepam 50 MG Q24H 05/12 0745 AC 05/15 Sodium Chloride 500 ML IV 0500 Meropenem 1 GM IQ8 05/13 0000 AC 05/16 IV 0100 Non-Formulary 0 SEE ADMIN CRITERIA 05/15 0900 CAN Medication ANY Nystatin 5 ML 4 TIMES/DAY 05/13 1000 AC 05/15 PO 2219 Ondansetron HCl 4 MG Q8P PRN 04/22 0600 AC IV Pantoprazole Sodium 40 MG Q5H 05/15 0415 AC 05/16 Sodium Chloride 100 ML IV 0729 Propofol 1,000 MG CONTINOUS INFUSION 05/15 1915 AC 05/16 N/A 100 ML IV 0801 Propofol 1,000 MG Q8H 05/15 0915 DC 05/15 N/A 1 UNIT IV 0915 Sodium Chloride 500 ML BOLUS ONE 05/15 1145 DC 05/15 IV 05/15 1244 1145 Sodium Chloride 1,000 ML Q20H 05/14 2000 AC 05/16 IV 0801 Total Parenteral 1 UNIT 1900 05/16 1900 AC Nutrition IV 05/17 1859 Total Parenteral 1 UNIT 05/15 AC 05/15 Nutrition IV 05/16 Vital Signs & I&O Last 24 Hrs of Vitals and I&O: Vital Signs Date Time Temp Pulse Resp B/P Pulse O2 O2 Flow FiO2 Ox Delivery Rate 05/16 0811 30 05/16 0604 30 05/16 0310 30 05/16 0046 30 05/16 0000 96.5 71 20 112/70 05/16 0000 96.5 71 20 112/70 95 Ventilator 05/16 0000 95 Ventilator 30% 05/15 2209 30 05/15 2000 98.8 88 22 106/63 05/15 2000 97 Ventilator 30% 05/15 1940 30 05/15 1618 30 05/15 1600 99.6 66 20 124/64 05/15 1600 98.2 82 82 94/58 95 Ventilator 30% 05/15 1600 97 Ventilator 30% 05/15 1428 30 05/15 1234 30 05/15 1200 95 Ventilator 30% 05/15 0907 30 Intake & Output 05/16 1600 05/16 0800 05/16 0000 Intake Total 2146.0 Output Total 1000 Balance 1146.0 Intake, IV 1301 Intake, Lipid 150.0 Intake, Other 0 Intake, 695 TPN/PPN Number 400 Bowel Movements Output, 700 Drainage Output, 0 Gastric Drainage Output, Urine 300 Patient 289 lb Weight Exam General Appearance: sedated, on mechanical ventilation, not responsive Head: atraumatic Neck: supple, trach in place, minimal blood around trach site but no lidia bleeding Respiratory: no respiratory distress, clear anteriorly, lungs expand symmetrically, trachea midline Cardiovascular: regular rate/rhythm, tachycardia, S1 and S2 heard Abdomen: CONNIE drains in place, NG tube has no bloody fluid drainage Extremities: warm and dry Skin: no cyanosis or edema Results Last 24 Hrs of Lab Results: Laboratory Tests 05/16/16 0715: Sodium Pending, Potassium Pending, Chloride Pending, Carbon Dioxide Pending, Anion Gap Pending, BUN Pending, Creatinine Pending, Glucose Pending, Calcium Pending, Phosphorus Pending, Magnesium Pending, Total Bilirubin Pending, AST Pending, ALT Pending, Albumin Pending, CBC w Diff Pending, WBC Pending, RBC Pending, Hgb Pending, Hct Pending, MCV Pending, MCH Pending, RDW Pending, Plt Count Pending, MPV Pending, PUBS MCHC Pending 05/16/16 0120: CBC w Diff NO MAN DIFF REQ, RBC 2.83 L, MCV 92.6, MCH 30.9, RDW 15.6 H, MPV 9.6, Gran % 80.0 H, Lymphocytes % 10.2 L, Monocytes % 7.8, Eosinophils % 1.8, Basophils % 0.2, Absolute Granulocytes 5.3, Absolute Lymphocytes 0.7 L, Absolute Monocytes 0.5, Absolute Eosinophils 0.1, Absolute Basophils 0, PUBS MCHC 33.4 05/15/16 1830: CBC w Diff NO MAN DIFF REQ, RBC 2.88 L, MCV 92.1, MCH 30.8, RDW 15.9 H, MPV 10.4, Gran % 78.0 H, Lymphocytes % 10.2 L, Monocytes % 9.4 H, Eosinophils % 1.9, Basophils % 0.5, Absolute Granulocytes 5.1, Absolute Lymphocytes 0.7 L, Absolute Monocytes 0.6, Absolute Eosinophils 0.1, Absolute Basophils 0, PUBS MCHC 33.4 05/15/16 1245: CBC w Diff NO MAN DIFF REQ, RBC 2.73 L, MCV 93.5, MCH 30.6, RDW 16.0 H, MPV 10.5 H, Gran % 80.2 H, Lymphocytes % 10.4 L, Monocytes % 7.2, Eosinophils % 2.0, Basophils % 0.2, Absolute Granulocytes 5.4, Absolute Lymphocytes 0.7 L, Absolute Monocytes 0.5, Absolute Eosinophils 0.1, Absolute Basophils 0, PUBS MCHC 32.8 L Last 24 Hrs of Micro Results: Respiratory culture from 05/12/2016 is growing mold. All other cultures are negative. Impression/Plan Impression/Plan Impression/Plan: 1. 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 2. Respiratory failure s/p tracheostomy placement. No evidence of hemoptysis. 3. Acute bleeding with anemia, likely secondary to NG tube trauma. This appears to have stabilized today. 4. Ongoing encephalopathy - hepatic? metabolic? Warnicke Korsakoff? The patient has had multiple studies for evaluation including an EEG and CT scan of the brain. He continues to receive lactulose for presumed hepatic encephalopathy. He received high-dose thiamine. He remains on 0.5 mg of Ativan per hour for severe agitation. 5. Fever, cultures negative, on meropenem. 6. 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 7. Severe malnutrition - on TPN. Recommendations: * Monitor CBCs every 12 hours. Call GI if any evidence of increased bleeding. * Attempt to flush Dobbhoff tube today. * Ativan drip at 0.5 mg per hour. Decrease by 10 - 20% daily down to off. * Wean propofol down to off today. * Once the patient is awake and alert, we will restart trach mask trials. * Follow-up psychiatry recommendations for agitation, appreciate input. * Check daily abdominal x-rays to determine the position of the Dobbhoff tube until it is in the duodenum. * Continue lactulose enemas. * Continue meropenem as per ID. * Continue half normal saline at 50 ML per hour. * Continue TPN. * MVI, thiamine, folate to continue in TPN. * Continue DVT and GI prophylaxis. * Skin care protocol to continue. * Out of bed to chair daily. * Give breaks from Alps periodically as per family request. * Continue all supportive care. * Family updated at the bedside. TTS 60
--- NOTE | 2016-05-16 09:23 | PN- Resident CRCU ---
Subjective HPI/CRCU Issues: Patient seen and examined. He is seen lying flat in bed sedated on a propofol drip. He has multiple lines in place including a proline, NG tube (clamped), tracheostomy, [place] catheter, Dobbhoff tube. He appears comfortable and in no acute distress. At bedside is his brother Marquise who is up-to-date about his brothers medical condition and has no questions or concerns at this time. Review of systems is unobtainable. Lab work every 6 hours overnight demonstrated a consistent, but slow decrease in hemoglobin possibly secondary to a slow upper gastrointestinal bleed. Patient is currently hemodynamically stable. Objective Vital Signs & I&O Last 8 Hrs of Vitals and I&O: Vitals: - Temperature: 96.5-97.4 - Heart Rate: 64-86 - Respiratory Rate: 15-25 - Systolic Blood pressure: 86-136 - Diastolic Blood pressure: 45-60 - Oxygen Saturation: 92-97% via tracheostomy on 30% FiO2 Exam General Appearance: well developed/nourished, no apparent distress, sedated, obese Other Physical Findings: General -well-developed, well-nourished obese sedated male in no acute distress HEENT - NCAT, PERRL, EOMI, anicteric sclera, tracheostomy in place, NG tube in place and clamped, proline line in place Cardio - S1, S2 w/o murmurs/gallops/rubs Resp - CTA bilaterally w/o wheezing/rhochi/crackles GI -soft, nontender, nondistended, bowel sounds present, multiple surgical incision sites well-healing without any obvious drainage Neuro -sedated and comfortable appearing on propofol drip Weaning Parameters NIF: 45 Minute Volume: 11.1 Resp rate: 16 Vt: 699 Heart Rate: 84 Weaning Schedule Start Time: 1006 Minute Volume: 10.4 Resp Rate: 18 Vt: 583 Heart Rate: 96 End Time: 1145 Minute Volume: 13.1 Resp Rate: 18 Vt: 731 Heart Rate: 104 Start Time: 1345 Resp Rate: 24 Heart Rate: 113 Current Medications: Current Medications Sig/Roberto Start time Last Medication Dose Route Stop Time Status Admin Albuterol Sulfate 3 ML EVERY 4 HRS/AWAKE 05/01 2000 AC 05/16 INH 0810 Fat Emulsion 450 ML 05/16 190 AC Intravenous IV 05/17 1859 Fat Emulsion 450 ML 1900 05/15 1900 AC 05/15 Intravenous IV 05/16 [id number] Fat Emulsion 450 ML 1900 05/14 1900 DC 05/14 Intravenous IV 05/15 185 1934 Haloperidol 1.5 MG Q8P PRN 05/14 1345 AC IM Hydromorphone HCl 2 MG Q4-PRN PRN 05/04 1745 AC 05/15 IV 2225 Insulin Aspart 0 Q8 05/08 1400 AC 05/16 SC 0715 Lactulose 1 BOT BID 05/11 2200 AC 05/15 DE 2219 Lorazepam 50 MG Q24H 05/12 0745 AC 05/15 Sodium Chloride 500 ML IV 0500 Meropenem 1 GM IQ8 05/13 0000 AC 05/16 IV 0100 Nystatin 5 ML 4 TIMES/DAY 05/13 1000 AC 05/15 PO 2219 Ondansetron HCl 4 MG Q8P PRN 04/22 0600 AC IV Pantoprazole Sodium 40 MG Q5H 05/15 0415 AC 05/16 Sodium Chloride 100 ML IV 0729 Propofol 1,000 MG CONTINOUS INFUSION 05/15 1915 AC 05/16 N/A 100 ML IV 0801 Propofol 1,000 MG Q8H 05/15 0915 DC 05/15 N/A 1 UNIT IV 0915 Sodium Chloride 500 ML BOLUS ONE 05/15 1145 DC 05/15 IV 05/15 1244 1145 Sodium Chloride 1,000 ML Q20H 05/14 2000 AC 05/16 IV 0801 Total Parenteral 1 UNIT 1900 05/16 190 AC Nutrition IV 05/17 185 Total Parenteral 1 UNIT 1900 05/15 190 AC 05/15 Nutrition IV 05/16 Impression/Plan Impression/Problem List Impression: Patient continues to have slow falls and his hemoglobin concentration on blood count monitoring. Blood counts will be continued every 12 hours with transfusion should he fall below 7.0. Ativan drip will continue to be weaned in addition to propofol being discontinued later today. PICC line and Ann catheter were removed yesterday. Down to the IR suite today for a fluoroscopic procedure to manually advanced the nasal jejunal tube to the appropriate area, which was reportedly successful with no complications. The tube was apparently embedded in the mucosal wall which may have been the source of the slow upper GI bleed. Nutrition services was contacted regarding starting enteric tube feeds and preliminary recommendations were made over the phone with a formal consult being placed in the morning. TPN is to be continued for the interim while tube feeds are being started. Problem list: -Duodenal ulcer perforation status post surgical repair -Possible peritonitis, on meropenem -Sepsis, now resolved -Delirium -History of alcohol abuse Gastrointestinal: Patient admitted for perforated duodenal ulcer complicated with peritonitis. Currently status post status post surgical repair. Surgical sites continue to drain a clear liquid, however are without any surrounding erythema or induration. These are to be started this evening. -Abdominal x-ray daily -Dobbhoff tube in place -Nasal jejunal tube in place -NG tube, now clamped -Nothing by mouth, tube feeds starting tonight -TPN nutrition -Protonix drip -Follow up on formal nutrition consult in a.m. Infectious disease: Patient was febrile to 101.8 overnight despite being maintained on antibiotics. There is some consideration for potential disseminated candidal infection however interventions to address this will be deferred for 48 hours to assess patient's response to current antibiotic regimen. . -Meropenem 1 g IV every 8 hours -Nystatin swish and swallow for thrush Respiratory: Patient is saturating well supplemental oxygen provided via tracheostomy with 30 % O2. -TRC neb treatments -Supplemental oxygen via tracheostomy and ventilator Neurology: Patient continues to remain disoriented and agitated. -Lactulose one bottle DE twice a day -Ativan drip, taper as tolerated -Propofol drip discontinued later today -Haldol 1 mg IM every 6 hours as needed for agitation Cardiovascular: History of hypertension and hyperlipidemia, currently stable. -Telemetry cardiac monitoring -Normal sinus rhythm overnight Endocrine: Continue to monitor Accu-Cheks 3 times a day before meals/at bedtime. -NovoLog sliding scale insulin Hematology: Stable hemoglobin and hematocrit. Patient developed a small upper GI bleed thought to be secondary to nasogastric tube suction. -Continue to monitor vitals closely -Complete blood count every 12 hours to assess for acute bleed Integumentary: Patient has multiple surgical site incisions on his abdomen that are continuing to drain without any new signs of infection. No apparent new skin breakdown. -Half Normal saline at 50 mL per hour Pain plan: -Hydromorphone 2 mg IV every 4 hours as needed for pain 7-10 Diet-nothing by mouth, continue TPN nutrition as above DVT prophylaxis-subcutaneous heparin CODE STATUS-full code Problem List: 1. Peritonitis 2. Perforation bowel Pain Ratin Tomorrow's Labs & Rationales: Complete blood count every 12 hours ICU bundle Abdominal x-ray Plan DVT/Prophylaxis: mechanical
--- NOTE | 2016-05-16 10:59 | RADIOLOGY REPORT ---
EXAMINATION: XR ABDOMEN CLINICAL INDICATION: Confirm placement of Dobbhoff tube. COMPARISON: KUB dated 05/15/2016 and 05/14/2016. TECHNIQUE: Single frontal view of the abdomen. FINDINGS: Feeding tube is seen coiled back upon itself in the stomach with tip pointing cephalad in region of the GE junction, unchanged from prior exam. Right upper quadrant drain is again noted. Some residual barium is seen within the colon. IMPRESSION: Feeding tube coiled back upon itself with tip pointing cephalad in region of the GE junction. This should ideally be repositioned with tip directed into the third/fourth portion of the duodenum.
--- NOTE | 2016-05-16 15:21 | PN- Gastroenterology ---
Assessment/Plan Assessment/Recommendations: Assessment: Mr. Corona is a 50 year old male with a history of etoh abuse/ cirrhosis admitted with a perforated viscus s/p surgical repair who continues to require ICU level care who has recently been trached and continued on TPN who was noted to have bright blood in his NG tube, but he has remained hemodynamically stable throughout and his hemoglobin has been stable over the past 24 hours. He has also remained without melena so I do not feel he is having a hemodynamically significant GI bleed and will therefore continue to hold off on endoscopic intervention Recommendations: 1. Clamp NG tube. 2. Follow CBCs every 12 hours and transfuse as needed to keep his hemoglobin greater than 7 or as per cardiology recommendations. 3. Continue IV Protonix drip for now, but if he remains without evidence of overt bleeding with change to bolus dosing in the a.m. 4. Maintain 2 large-bore IVs at all times. 5. Avoid NSAIDs. 6. Notify GI for signs of overt GI bleeding such as profuse hematemesis or melena or any unexplained hemodynamic instability. 7. Will continue to hold off on endoscopic intervention for now Overall prognosis remains guarded. I will continue to follow this patient and make further recommendations based on his clinical course and repeat blood work. Problem List: 1. EtOH dependence 2. Ascites 3. Liver failure 4. Duodenal bulb ulcer perforation 5. Perforation bowel Subjective Subjective: Patient without further hematemesis since yesterday. He has been hemodynamically stable and without melena. Objective Vital Signs and I&Os Vital Signs Date Time Temp Pulse Resp B/P Pulse O2 O2 Flow FiO2 Ox Delivery Rate 05/16 1326 30 05/16 0830 98 Ventilator 30% 05/16 0811 30 05/16 0800 96 Ventilator 30% 05/16 0800 98.2 70 20 102/60 96 Ventilator 30% 05/16 0604 30 05/16 0400 97.4 86 24 130/70 05/16 0400 96 Ventilator 30% 05/16 0310 30 05/16 0046 30 05/16 0000 96.5 71 20 112/70 12 0000 96.5 71 20 112/70 95 Ventilator 05/16 0000 95 Ventilator 30% 05/15 2209 30 05/15 2000 98.8 88 22 106/63 05/15 2000 97 Ventilator 30% 05/15 1940 30 05/15 1618 30 05/15 1600 99.6 66 20 124/64 05/15 1600 98.2 82 82 94/58 95 Ventilator 30% 05/15 1600 97 Ventilator 30% Intake & Output 05/16 1600 05/16 0400 05/15 1600 05/15 0400 05/14 1600 05/14 040 Intake Total 3495.6 2146.0 4371.4 1427.0 2746.0 1788.0 Output Total 2270 1000 6369 801 2655 1035 Balance 1225.6 1146.0 2621.4 622.0 441.0 753.0 Intake, IV 2524.6 1301 3302.9 497 842 671 Intake, Lipid 148.0 150.0 174.5 141.2 269.0 166.0 Intake, Oral 0 0 0 Intake, Other 0 30 130 50 Intake, 823 695 864 788.8 1505 901 TPN/PPN Number 100 400 0 Bowel Movements Output, 1520 700 135 310 9819 600 Drainage Output, 0 500 125 Gastric Drainage Output, Stool 500 200 540 120 Output, Urine 250 300 600 250 515 315 Patient 289 lb 287 lb Weight Physical Exam General Appearance: well developed/nourished, no apparent distress, comfortable Head: atraumatic Neck: supple Respiratory: decreased breath sounds Abdomen: normal bowel sounds, soft Skin: intact, normal color Current Medications: Current Medications Sig/Roberto Start time Last Medication Dose Route Stop Time Status Admin Albuterol Sulfate 3 ML EVERY 4 HRS/AWAKE 05/01 2000 AC 05/16 INH 0810 Fat Emulsion 450 ML 0 05/16 1900 AC Intravenous IV 05/17 1859 Fat Emulsion 450 ML 1900 05/15 190 AC 05/15 Intravenous IV 05/16 1859 2045 Fat Emulsion 450 ML 0 05/14 1900 DC 05/14 Intravenous IV 05/15 1859 1934 Haloperidol 1.5 MG Q8P PRN 05/14 1345 AC IM Hydromorphone HCl 2 MG Q4-PRN PRN 05/04 1745 AC 05/15 IV 2225 Insulin Aspart 0 Q8 05/08 1400 AC 05/16 SC 0715 Lactulose 1 BOT BID 05/11 2200 AC 05/16 FL 1005 Lorazepam 50 MG Q24H 05/12 0745 AC 05/16 Sodium Chloride 500 ML IV 1006 Meropenem 1 GM IQ8 05/13 0000 AC 05/16 IV 0800 Nystatin 5 ML 4 TIMES/DAY 05/13 1000 AC 05/16 PO 1412 Ondansetron HCl 4 MG Q8P PRN 04/22 0600 AC IV Pantoprazole Sodium 40 MG Q5H 05/15 0415 AC 05/16 Sodium Chloride 100 ML IV 1005 Propofol 1,000 MG CONTINOUS INFUSION 05/15 191 AC 05/16 N/A 100 ML IV 0801 Propofol 1,000 MG Q8H 05/15 0915 DC 05/15 N/A 1 UNIT IV 0915 Sodium Chloride 1,000 ML Q20H 05/14 2000 AC 05/16 IV 0801 Total Parenteral 1 UNIT 19005/16 190 AC Nutrition IV 05/17 1859 Total Parenteral 1 UNIT 05/15 AC 05/15 Nutrition IV 05/16 Results Pertinent Lab Results: Laboratory Tests 05/16 05/16 0715 0120 Chemistry Sodium (137 - 145 mmol/L) 141 Potassium (3.5 - 5.1 mmol/L) 3.5 Chloride (98 - 107 mmol/L) 106 Carbon Dioxide (22 - 30 mmol/L) 26 Anion Gap (5 - 16) 8 BUN (9 - 20 mg/dL) 22 H Creatinine (0.7 - 1.2 mg/dL) 0.6 L Estimated GFR (>60 ml/min) > 60 Glucose (65 - 99 mg/dL) 132 H Calcium (8.4 - 10.2 mg/dL) 8.3 L Phosphorus (2.5 - 4.5 mg/dL) 3.4 Magnesium (1.6 - 2.3 mg/dL) 2.0 Total Bilirubin (0.2 - 1.3 mg/dL) 1.5 H AST (17 - 59 U/L) 46 ALT (21 - 72 U/L) 34 Albumin (3.5 - 5.0 g/dL) 2.0 L Prealbumin (17.6 - 36.0 mg/dL) 4.9 L Hematology CBC w Diff NO MAN DIFF REQ NO MAN DIFF REQ WBC (4.8 - 10.8 /CUMM) 7.0 6.6 RBC (4.70 - 6.10 /CUMM) 2.86 L 2.83 L Hgb (14.0 - 18.0 G/DL) 8.9 L 8.7 L Hct (42 - 52 %) 26.4 L 26.2 L MCV (80.0 - 94.0 FL) 92.6 92.6 MCH (27.0 - 31.0 PG) 31.1 H 30.9 RDW (11.5 - 14.5 %) 15.5 H 15.6 H Plt Count (130 - 400 /CUMM) 153 148 MPV (7.4 - 10.4 FL) 10.5 H 9.6 Gran % (42.2 - 75.2 %) 76.9 H 80.0 H Lymphocytes % (20.5 - 51.1 %) 11.9 L 10.2 L Monocytes % (1.7 - 9.3 %) 8.3 7.8 Eosinophils % (0 - 5 %) 2.5 1.8 Basophils % (0.0 - 2.0 %) 0.4 0.2 Absolute Granulocytes (1.4 - 6.5 /CUMM) 5.4 5.3 Absolute Lymphocytes (1.2 - 3.4 /CUMM) 0.8 L 0.7 L Absolute Monocytes (0.10 - 0.60 /CUMM) 0.6 0.5 Absolute Eosinophils (0.0 - 0.7 /CUMM) 0.2 0.1 Absolute Basophils (0.0 - 0.2 /CUMM) 0 0 PUBS MCHC (33.0 - 37.0 G/DL) 33.7 33.4 05/15 05/15 1830 1245 Hematology CBC w Diff NO MAN DIFF REQ NO MAN DIFF REQ WBC (4.8 - 10.8 /CUMM) 6.5 6.7 RBC (4.70 - 6.10 /CUMM) 2.88 L 2.73 L Hgb (14.0 - 18.0 G/DL) 8.9 L 8.4 L Hct (42 - 52 %) 26.5 L 25.5 L MCV (80.0 - 94.0 FL) 92.1 93.5 MCH (27.0 - 31.0 PG) 30.8 30.6 RDW (11.5 - 14.5 %) 15.9 H 16.0 H Plt Count (130 - 400 /CUMM) 136 139 MPV (7.4 - 10.4 FL) 10.4 10.5 H Gran % (42.2 - 75.2 %) 78.0 H 80.2 H Lymphocytes % (20.5 - 51.1 %) 10.2 L 10.4 L Monocytes % (1.7 - 9.3 %) 9.4 H 7.2 Eosinophils % (0 - 5 %) 1.9 2.0 Basophils % (0.0 - 2.0 %) 0.5 0.2 Absolute Granulocytes (1.4 - 6.5 /CUMM) 5.1 5.4 Absolute Lymphocytes (1.2 - 3.4 /CUMM) 0.7 L 0.7 L Absolute Monocytes (0.10 - 0.60 /CUMM) 0.6 0.5 Absolute Eosinophils (0.0 - 0.7 /CUMM) 0.1 0.1 Absolute Basophils (0.0 - 0.2 /CUMM) 0 0 PUBS MCHC (33.0 - 37.0 G/DL) 33.4 32.8 L 05/15 05/15 0515 0515 Coagulation Fibrinogen Activity (200 - 393 MG/DL) 494 H Fibrin Degrad Products (< 10 ug/ml) >10 but < 40 ug/ml H D-Dimer (70 - 232 ng/ml) 916 H Hematology CBC w Diff NO MAN DIFF REQ WBC (4.8 - 10.8 /CUMM) 9.5 RBC (4.70 - 6.10 /CUMM) 2.94 L Hgb (14.0 - 18.0 G/DL) 9.1 L Hct (42 - 52 %) 27.5 L MCV (80.0 - 94.0 FL) 93.5 MCH (27.0 - 31.0 PG) 31.1 H RDW (11.5 - 14.5 %) 15.2 H Plt Count (130 - 400 /CUMM) 148 MPV (7.4 - 10.4 FL) 9.4 Gran % (42.2 - 75.2 %) 78.9 H Lymphocytes % (20.5 - 51.1 %) 8.5 L Monocytes % (1.7 - 9.3 %) 9.5 H Eosinophils % (0 - 5 %) 2.6 Basophils % (0.0 - 2.0 %) 0.5 Absolute Granulocytes (1.4 - 6.5 /CUMM) 7.5 H Absolute Lymphocytes (1.2 - 3.4 /CUMM) 0.8 L Absolute Monocytes (0.10 - 0.60 /CUMM) 0.9 H Absolute Eosinophils (0.0 - 0.7 /CUMM) 0.2 Absolute Basophils (0.0 - 0.2 /CUMM) 0 PUBS MCHC (33.0 - 37.0 G/DL) 33.3 05/15 05/14 0242 1906 Chemistry Sodium (137 - 145 mmol/L) 145 Potassium (3.5 - 5.1 mmol/L) 4.1 Chloride (98 - 107 mmol/L) 108 H Carbon Dioxide (22 - 30 mmol/L) 27 Anion Gap (5 - 16) 10 BUN (9 - 20 mg/dL) 23 H Creatinine (0.7 - 1.2 mg/dL) 0.7 Estimated GFR (>60 ml/min) > 60 Glucose (65 - 99 mg/dL) 143 H Calcium (8.4 - 10.2 mg/dL) 8.6 Phosphorus (2.5 - 4.5 mg/dL) 4.3 Magnesium (1.6 - 2.3 mg/dL) 2.0 Total Bilirubin (0.2 - 1.3 mg/dL) 1.7 H AST (17 - 59 U/L) 50 ALT (21 - 72 U/L) 43 Albumin (3.5 - 5.0 g/dL) 2.3 L Prealbumin (17.6 - 36.0 mg/dL) 4.7 L Triglycerides (<150 mg/dL) 139 Coagulation PT (9.4 - 12.5 SEC) 15.5 H INR (0.90 - 1.17) 1.48 H APTT (25 - 37 SEC) 39 H Hematology CBC w Diff NO MAN DIFF REQ NO MAN DIFF REQ WBC (4.8 - 10.8 /CUMM) 9.4 8.5 RBC (4.70 - 6.10 /CUMM) 3.04 L 2.96 L Hgb (14.0 - 18.0 G/DL) 9.4 L 9.2 L Hct (42 - 52 %) 28.5 L 28.0 L MCV (80.0 - 94.0 FL) 93.9 94.6 H MCH (27.0 - 31.0 PG) 31.0 31.0 RDW (11.5 - 14.5 %) 15.3 H 15.3 H Plt Count (130 - 400 /CUMM) 157 149 MPV (7.4 - 10.4 FL) 10.1 10.5 H Gran % (42.2 - 75.2 %) 79.1 H 78.8 H Lymphocytes % (20.5 - 51.1 %) 9.5 L 9.9 L Monocytes % (1.7 - 9.3 %) 8.4 7.2 Eosinophils % (0 - 5 %) 2.7 3.0 Basophils % (0.0 - 2.0 %) 0.3 1.1 Absolute Granulocytes (1.4 - 6.5 /CUMM) 7.4 H 6.7 H Absolute Lymphocytes (1.2 - 3.4 /CUMM) 0.9 L 0.8 L Absolute Monocytes (0.10 - 0.60 /CUMM) 0.8 H 0.6 Absolute Eosinophils (0.0 - 0.7 /CUMM) 0.3 0.3 Absolute Basophils (0.0 - 0.2 /CUMM) 0 0.1 PUBS MCHC (33.0 - 37.0 G/DL) 33.0 32.8 L 05/14 05/14 0510 0400 Blood Gas pH (7.35 - 7.45 PH) 7.42 pCO2 (35 - 45 TORR) 38 pO2 (80 - 100 TORR) 107 H HCO3 (21 - 28 MEQ/L) 24 ABG O2 Sat (Measured) (>96.0 %) 97.0 P-50 (Temp Corrected) Y Carboxyhemoglobin (1.5 - 5.0 %) 0.3 L O2 Concentration % 30% Temperature (97.0 - 100.0 FARH) 98.3 O2 Delivery Method TM Chemistry Sodium (137 - 145 mmol/L) 141 Potassium (3.5 - 5.1 mmol/L) 4.0 Chloride (98 - 107 mmol/L) 107 Carbon Dioxide (22 - 30 mmol/L) 28 Anion Gap (5 - 16) 6 BUN (9 - 20 mg/dL) 22 H Creatinine (0.7 - 1.2 mg/dL) 0.7 Estimated GFR (>60 ml/min) > 60 Glucose (65 - 99 mg/dL) 117 H Calcium (8.4 - 10.2 mg/dL) 8.6 Phosphorus (2.5 - 4.5 mg/dL) 4.2 Magnesium (1.6 - 2.3 mg/dL) 2.0 Total Bilirubin (0.2 - 1.3 mg/dL) 1.9 H AST (17 - 59 U/L) 45 ALT (21 - 72 U/L) 42 Albumin (3.5 - 5.0 g/dL) 2.3 L Lipase (23 - 300 U/L) 688 H Coagulation PT (9.4 - 12.5 SEC) 15.5 H INR (0.90 - 1.17) 1.48 H Hematology CBC w Diff NO MAN DIFF REQ WBC (4.8 - 10.8 /CUMM) 10.4 RBC (4.70 - 6.10 /CUMM) 3.06 L Hgb (14.0 - 18.0 G/DL) 9.5 L Hct (42 - 52 %) 28.8 L MCV (80.0 - 94.0 FL) 94.1 H MCH (27.0 - 31.0 PG) 31.0 RDW (11.5 - 14.5 %) 16.0 H Plt Count (130 - 400 /CUMM) 122 L MPV (7.4 - 10.4 FL) 10.2 Gran % (42.2 - 75.2 %) 78.1 H Lymphocytes % (20.5 - 51.1 %) 11.1 L Monocytes % (1.7 - 9.3 %) 8.0 Eosinophils % (0 - 5 %) 2.5 Basophils % (0.0 - 2.0 %) 0.3 Absolute Granulocytes (1.4 - 6.5 /CUMM) 8.2 H Absolute Lymphocytes (1.2 - 3.4 /CUMM) 1.2 Absolute Monocytes (0.10 - 0.60 /CUMM) 0.8 H Absolute Eosinophils (0.0 - 0.7 /CUMM) 0.3 Absolute Basophils (0.0 - 0.2 /CUMM) 0 PUBS MCHC (33.0 - 37.0 G/DL) 33.0 Miscellaneous Phlebotomy Draw Site LEFT RADIAL 05/13 2145 Blood Gas pH (7.35 - 7.45 PH) 7.38 pCO2 (35 - 45 TORR) 40 pO2 (80 - 100 TORR) 100 HCO3 (21 - 28 MEQ/L) 24 ABG O2 Sat (Measured) (>96.0 %) 96.0 P-50 (Temp Corrected) Y Carboxyhemoglobin (1.5 - 5.0 %) 0.3 L O2 Concentration % 35% Temperature (97.0 - 100.0 FARH) 97.2 O2 Delivery Method TM Miscellaneous Phlebotomy Draw Site RIGHT RADIAL
--- NOTE | 2016-05-16 15:32 | PN- Infect Dx ---
Subjective Subjective: Afebrile. He has been reintubated and sedated. A Pro-Line catheter was placed and the PICC was removed. The Ann catheter was also removed. Objective Last 24 Hrs of Vital Signs/I&O Vital Signs Date Time Temp Pulse Resp B/P Pulse O2 O2 Flow FiO2 Ox Delivery Rate 05/16 1326 30 05/16 0830 98 Ventilator 30% 05/16 0811 30 05/16 0800 96 Ventilator 30% 05/16 0800 98.2 70 20 102/60 96 Ventilator 30% 05/16 0604 30 05/16 0400 97.4 86 24 130/70 05/16 0400 96 Ventilator 30% 05/16 0310 30 05/16 0046 30 05/16 0000 96.5 71 20 112/70 12 0000 96.5 71 20 112/70 95 Ventilator 05/16 0000 95 Ventilator 30% 05/15 2209 30 05/15 2000 98.8 88 22 106/63 05/15 2000 97 Ventilator 30% 05/15 1940 30 05/15 1618 30 05/15 1600 99.6 66 20 124/64 05/15 1600 98.2 82 82 94/58 95 Ventilator 30% 05/15 1600 97 Ventilator 30% Intake & Output 05/16 1600 05/16 0800 05/16 0000 Intake Total 1790.6 1705.0 2146.0 Output Total 3884 878 8252 Balance 490.6 735.0 1146.0 Intake, IV 1790.6 734 1301 Intake, Lipid 148.0 150.0 Intake, Oral 0 Intake, Other 0 Intake, 823 695 TPN/PPN Number 100 400 Bowel Movements Output, 800 720 700 Drainage Output, 0 Gastric Drainage Output, Stool 500 Output, Urine 250 300 Patient 289 lb Weight Physical Exam Other Physical Findings: He is sedated on the ventilator with no response at this time Chest Pro-Line in the right upper chest with no inflammation at the site Lungs are clear Heart regular rhythm with no murmur Abdomen distended, positive bowel sounds; CONNIE drains remain in place, now with increased drainage from drain #1 Extremities no cyanosis, clubbing or edema Results Last 24 Hours of Lab Results: Laboratory Tests 05/16 05/16 0715 0120 Chemistry Sodium (137 - 145 mmol/L) 141 Potassium (3.5 - 5.1 mmol/L) 3.5 Chloride (98 - 107 mmol/L) 106 Carbon Dioxide (22 - 30 mmol/L) 26 Anion Gap (5 - 16) 8 BUN (9 - 20 mg/dL) 22 H Creatinine (0.7 - 1.2 mg/dL) 0.6 L Estimated GFR (>60 ml/min) > 60 Glucose (65 - 99 mg/dL) 132 H Calcium (8.4 - 10.2 mg/dL) 8.3 L Phosphorus (2.5 - 4.5 mg/dL) 3.4 Magnesium (1.6 - 2.3 mg/dL) 2.0 Total Bilirubin (0.2 - 1.3 mg/dL) 1.5 H AST (17 - 59 U/L) 46 ALT (21 - 72 U/L) 34 Albumin (3.5 - 5.0 g/dL) 2.0 L Prealbumin (17.6 - 36.0 mg/dL) 4.9 L Hematology CBC w Diff NO MAN DIFF REQ NO MAN DIFF REQ WBC (4.8 - 10.8 /CUMM) 7.0 6.6 RBC (4.70 - 6.10 /CUMM) 2.86 L 2.83 L Hgb (14.0 - 18.0 G/DL) 8.9 L 8.7 L Hct (42 - 52 %) 26.4 L 26.2 L MCV (80.0 - 94.0 FL) 92.6 92.6 MCH (27.0 - 31.0 PG) 31.1 H 30.9 RDW (11.5 - 14.5 %) 15.5 H 15.6 H Plt Count (130 - 400 /CUMM) 153 148 MPV (7.4 - 10.4 FL) 10.5 H 9.6 Gran % (42.2 - 75.2 %) 76.9 H 80.0 H Lymphocytes % (20.5 - 51.1 %) 11.9 L 10.2 L Monocytes % (1.7 - 9.3 %) 8.3 7.8 Eosinophils % (0 - 5 %) 2.5 1.8 Basophils % (0.0 - 2.0 %) 0.4 0.2 Absolute Granulocytes (1.4 - 6.5 /CUMM) 5.4 5.3 Absolute Lymphocytes (1.2 - 3.4 /CUMM) 0.8 L 0.7 L Absolute Monocytes (0.10 - 0.60 /CUMM) 0.6 0.5 Absolute Eosinophils (0.0 - 0.7 /CUMM) 0.2 0.1 Absolute Basophils (0.0 - 0.2 /CUMM) 0 0 PUBS MCHC (33.0 - 37.0 G/DL) 33.7 33.4 05/15 1830 Hematology CBC w Diff NO MAN DIFF REQ WBC (4.8 - 10.8 /CUMM) 6.5 RBC (4.70 - 6.10 /CUMM) 2.88 L Hgb (14.0 - 18.0 G/DL) 8.9 L Hct (42 - 52 %) 26.5 L MCV (80.0 - 94.0 FL) 92.1 MCH (27.0 - 31.0 PG) 30.8 RDW (11.5 - 14.5 %) 15.9 H Plt Count (130 - 400 /CUMM) 136 MPV (7.4 - 10.4 FL) 10.4 Gran % (42.2 - 75.2 %) 78.0 H Lymphocytes % (20.5 - 51.1 %) 10.2 L Monocytes % (1.7 - 9.3 %) 9.4 H Eosinophils % (0 - 5 %) 1.9 Basophils % (0.0 - 2.0 %) 0.5 Absolute Granulocytes (1.4 - 6.5 /CUMM) 5.1 Absolute Lymphocytes (1.2 - 3.4 /CUMM) 0.7 L Absolute Monocytes (0.10 - 0.60 /CUMM) 0.6 Absolute Eosinophils (0.0 - 0.7 /CUMM) 0.1 Absolute Basophils (0.0 - 0.2 /CUMM) 0 PUBS MCHC (33.0 - 37.0 G/DL) 33.4 Last 24 Hours of [place] Results: No recent cultures Recent Imaging Studies: Abdominal x-ray May 16 feeding tube coiled back upon itself with the tip pointing cephalad in the region of GE junction Assessment/Plan Impression: Overall status remains poor now reintubated and sedated, with no further significant bleeding noted. He remains afebrile with white blood cell count normal on Meropenem, restarted 4 days ago empirically because of the concern of an ongoing duodenal leak, now 24 days status post laparoscopic Clint plication for perforated duodenum. He now has increased drainage documented from drain # 1. Suggestion: 1. Further management regarding his presumed leak and feeding via the Dobhoff tube per Surgery 2. Continue Meropenem
[2016-05-16 16:00] VITALS: BP 126/78
--- NOTE | 2016-05-16 17:41 | INTERVENTIONAL RADIOLOGY RPT ---
EXAMINATION: Fluoroscopic guided upper GI evaluation. Fluoroscopic guided placement of small bowel feeding tube. CLINICAL INFORMATION: Patient with perforated duodenal ulcer status post repair. Needs nasogastric tube for feeds. However, the existing tube remains malpositioned in the stomach proximal to the duodenal repair. COMPARISON: X-ray 05/16/2016 TECHNIQUE/PROCEDURE/FINDINGS: Initially, 30 mL of contrast mixed with saline was injected through the patient's existing nasogastric tube to evaluate for patency of the duodenum and position of the existing feeding tube. The existing tube was flipped towards the GE junction, embedded in the stomach mucosa. There is contrast seen extending towards the duodenum. A stiff Glidewire was inserted through the feeding tube. The tube was repositioned and eventually negotiated beyond the eye worse to the proximal small bowel. Final position was confirmed with injection of contrast. FLUOROSCOPY TIME: 314 seconds IMPRESSION: Successful repositioning of the feeding tube into the second part of the duodenum, distal to the existing abdominal drain.
[2016-05-16 20:00] VITALS: BP 120/68
[2016-05-16 22:52] LABS: ABSOLUTE EOSINOPHIL COUNT 0.1 /CUMM (0.0-0.7); MEAN PLATELET VOLUME 10.1 FL (7.4-10.4)
[2016-05-16 22:55] LABS: ABSOLUTE BASOPHIL COUNT 0.1 /CUMM (0.0-0.2); ABSOLUTE LYMPH COUNT 0.9 /CUMM (1.2-3.4); ABSOLUTE MONOCYTE COUNT 0.9 /CUMM (0.10-0.60); BASOPHIL % 0.6 % (0.0-2.0); EOSINOPHIL % 1.3 % (0-5); GRANULOCYTE % 81.8 % (42.2-75.2); HEMATOCRIT 29.7 % (42-52); MEAN CORPUSCULAR HGB CONC 33.5 G/DL (33.0-37.0); MEAN CORPUSCULAR VOLUME 92.8 FL (80.0-94.0); PLATELET COUNT 174 /CUMM (130-400); RED BLOOD CELL CT 3.21 /CUMM (4.70-6.10)
[2016-05-16 23:00] LABS: PT 15.6 SEC (9.4-12.5); PTT 37 SEC (25-37)
[2016-05-17] VITALS: BP 160/92
--- NOTE | 2016-05-17 01:19 | NUR ---
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
[2016-05-17 04:00] VITALS: BP 156/90
--- NOTE | 2016-05-17 04:40 | NUR ---
0300 WITH MOVING AND TURNING PATIENT FOUND TO HAVE BRIGHT RED ORAL SECRETIONS- DR BOYER MADE AWARE, DR ALSO MADE AWARE THAT ONLY 35 ML UO SINCE 2199, BLADDER SCAN 215 ML 0330 PATIENT STRAIGHT CATHETERIZED WITHOUT DIFFICULTY- 280 ML PATRICK CLEAR UO OBTAINED, [place] CATHETER REPLACED 0400 PATIENT STOOLING DARK LIQUID STOOL AROUND RECTAL TUBE- TUBE WILL NOT FLUSH, RECTAL TUBE REMOVED AND REPLACED WITH NEW FLEXICLE RECTAL TUBE
[2016-05-17 05:48] LABS: ABSOLUTE BASOPHIL COUNT 0 /CUMM (0.0-0.2); ABSOLUTE EOSINOPHIL COUNT 0.1 /CUMM (0.0-0.7); ABSOLUTE GRANULOCYTE CT 8.8 /CUMM (1.4-6.5); ABSOLUTE MONOCYTE COUNT 0.9 /CUMM (0.10-0.60); EOSINOPHIL % 1.4 % (0-5); GRANULOCYTE % 81.3 % (42.2-75.2); HEMATOCRIT 29.4 % (42-52); MEAN CORPUSCULAR HGB 31.1 PG (27.0-31.0); MEAN CORPUSCULAR HGB CONC 33.6 G/DL (33.0-37.0); MEAN CORPUSCULAR VOLUME 92.7 FL (80.0-94.0); MEAN PLATELET VOLUME 10.4 FL (7.4-10.4); PLATELET COUNT 174 /CUMM (130-400); RBC DISTRIBUTION WIDTH 16.2 % (11.5-14.5); RED BLOOD CELL CT 3.18 /CUMM (4.70-6.10); WHITE BLOOD CELL COUNT 10.9 /CUMM (4.8-10.8)
[2016-05-17 05:57] LABS: BASOPHIL % 0.4 % (0.0-2.0)
--- NOTE | 2016-05-17 07:52 | NUR ---
TRACHEAL SECRETIONS CONTINUE TO BE WHITE IN COLOR, ORAL SECRETIONS FRANKLY BLOODY ALTHOUGH NOT CONTINUOUS, PATIENT REMAINS COMFORTABLY SEDATED, PORTABLE ABDOMINAL XRAY DONE
--- NOTE | 2016-05-17 08:00 | NUR ---
PT. NOTED TO BE SWEATY, WARM TO TOUCH, AFEBRILE AT 97.5, BP 134/80 MANUALLY, RR 24 SATURATION 92 VENTED VIA TRACHE WITH 30%FIO2, DEEP SUCTIONED FOR COPIOUS FROTHY WHITE SECRETIONS, ACCU CHECK 179; TUBE FEED, LIPIDS AND TPN REMAIN AT ORDERED RATES. MEDICAL TEAM NOTIFIED OF ABOVE; TROPONIN ADDED TO THIS AM'S LABS WELL NEW ONE DRAWN, EKG DONE AND GIVEN TO TEAM.
--- NOTE | 2016-05-17 08:25 | RADIOLOGY REPORT ---
EXAMINATION: XR ABDOMEN CLINICAL INDICATION: Dobbhoff tube in place. Confirm position. COMPARISON: None. TECHNIQUE: Single AP view. FINDINGS: Recently placed Dobbhoff catheter tip lies beyond the stomach in the third segment of the duodenum. Minimal gas is seen in the colon. There are 2 surgical annie seen in the mid abdomen from previous intervention. IMPRESSION: Tip of Dobbhoff tube lies in the third segment of the duodenum. There is minimal gas in the colon and small bowel loops but no suggestion for bowel distention seen.
--- NOTE | 2016-05-17 08:44 | PN- Resident CRCU ---
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 Overnight he found to have a very low urine output around 35mL in 5-6 hrs for which he was straight cathed with 280 mL of urine at 3:30 AM. Throughout the night there is blood suctioned out of NG tube. His vital signs remained stable-afebrile, heart rate of 70-85 and sinus rhythm, respiratory to 24, blood pressure of 1:30 to 145-60-70 mmHg in the past 8 hours, SES score of 3 Patient is intubated and mechanically ventilated with settings of assist control mode 20, VT of 550, 30% FiO2, PEEP of 5 cm of water. Patient is maintenance Protonix drip of 20 mL per hour and TPN of 104.2. Over an focus of propofol is also receiving half normal saline 50 mL per hour Today morning he started sweating profusely without any changes in temperature. A stat EKG and troponin was drawn. Troponin is negative and EKG is unremarkable from previous one except for prolonged QTC of 504. Objective Vital Signs & I&O Last 8 Hrs of Vitals and I&O: Intake & Output 05/17 1600 Intake Total 1750.0 Output Total 650 Balance 1100.0 Intake, IV 626.8 Intake, Lipid 149.6 Intake, Oral 0 Intake, 833.6 TPN/PPN Intake, Tube 80 Feeding Intake, Tube 60 Irrigant Number 1 Bowel Movements Output, 650 Drainage Patient 131.088 kg Weight Exam General Appearance: well developed/nourished, sedated, intubated, moderate distress Head: atraumatic, normal appearance Neck: normal inspection, supple Respiratory: normal breath sounds, chest non-tender, no respiratory distress Cardiovascular: regular rate/rhythm, normal peripheral pulses Gastrointestinal: normal bowel sounds, soft, non-tender Extremities: normal inspection Cranial Nerves: PERRL Other Physical Findings: Proline is intact and present in the internal jugular region, a Dobbhoff tube is present in the epigastric region. Weaning Parameters NIF: 45 Minute Volume: 11.1 Resp rate: 16 Vt: 699 Heart Rate: 84 Weaning Schedule Start Time: 1006 Minute Volume: 10.4 Resp Rate: 18 Vt: 583 Heart Rate: 96 End Time: 1145 Minute Volume: 13.1 Resp Rate: 18 Vt: 731 Heart Rate: 104 Start Time: 1345 Resp Rate: 24 Heart Rate: 113 Current Medications: Current Medications Sig/Roberto Start time Last Medication Dose Route Stop Time Status Admin Albuterol Sulfate 3 ML EVERY 4 HRS/AWAKE 05/01 2000 05/17 INH 1616 Fat Emulsion 450 ML 1900 05/17 1900 AC Intravenous IV 05/18 1859 Fat Emulsion 450 ML 1900 05/16 1900 AC 05/16 Intravenous IV 05/17 185 1948 Fat Emulsion 450 ML 1900 05/15 1900 DC 05/15 Intravenous IV 05/16 185 2045 Fentanyl Citrate 25 MCG Q2 PRN 05/17 1200 AC 05/17 IV 1200 Haloperidol 1.5 MG Q8P PRN 05/14 1345 DC IM Hydromorphone HCl 2 MG Q4-PRN PRN 05/04 1745 05/15 IV 2225 Insulin Aspart 0 Q8 05/08 1400 AC 05/17 SC 1436 Lactulose 20 GM BID 05/16 2200 05/17 PO 0932 Lorazepam 1 MG Q2 HRS NEEDED PRN 05/17 1215 IV Lorazepam 50 MG Q24H 05/12 0745 05/17 Sodium Chloride 500 ML IV 1300 Magnesium Sulfate 1 GM ONCE ONE 05/17 1200 DC 05/17 Dextrose/Water 100 ML IV 05/17 1559 1205 Magnesium Sulfate 1 GM ONCE ONE 05/17 0830 DC 05/17 Dextrose/Water 100 ML IV 05/17 1229 0830 Meropenem 1 GM IQ8 05/13 0000 AC 05/17 IV 1641 Nystatin 5 ML 4 TIMES/DAY 05/13 1000 05/17 PO 1326 Ondansetron HCl 4 MG Q8P PRN 04/22 0600 IV Pantoprazole Sodium 40 MG Q5H 05/15 0415 05/17 Sodium Chloride 100 ML IV 1641 Propofol 1,000 MG .STK-MED ONE 05/17 0726 DC IV 05/17 0727 Propofol 1,000 MG .STK-MED ONE 05/17 0302 DC IV 05/17 0303 Propofol 1,000 MG .STK-MED ONE 12/23 2346 DC IV 05/16 2347 Propofol 1,000 MG CONTINOUS INFUSION 05/15 1915 DC 05/17 N/A 100 ML IV 0413 Sodium Chloride 1,000 ML Q20H 05/14 2000 DC 05/17 IV 0413 Total Parenteral 1 UNIT 1900 05/17 1900 AC Nutrition IV 05/18 1859 Total Parenteral 1 UNIT 19005/16 190 AC 05/16 Nutrition IV 05/17 1859 1950 Total Parenteral 1 UNIT 05/15 DC 05/15 Nutrition IV 05/16 Radiology Findings: Abdominal x-ray IMPRESSION: Tip of Dobbhoff tube lies in the third segment of the duodenum. There is minimal gas in the colon and small bowel loops but no suggestion for bowel distention seen. Impression/Plan Impression/Problem List Impression: Patient continues to have slow falls and his hemoglobin concentration on blood count monitoring. Blood counts will be continued every 12 hours with transfusion should he fall below 7.0. Ativan drip will continue to be weaned in addition to propofol being discontinued later today. PICC line and Ann catheter were removed yesterday. Down to the IR suite today for a fluoroscopic procedure to manually advanced the nasal jejunal tube to the appropriate area, which was reportedly successful with no complications. The tube was apparently embedded in the mucosal wall which may have been the source of the slow upper GI bleed. Nutrition services was contacted regarding starting enteric tube feeds and preliminary recommendations were made over the phone with a formal consult being placed in the morning. TPN is slowly tapered off white to feedings started today Problem List: 1. Peritonitis 2. EtOH dependence 3. Duodenal bulb ulcer perforation Pain Ratin Tomorrow's Labs & Rationales: ICU bundle CBC Abdominal x-ray Plan Respiratory: On mechanical ventilation * Assist-control mode 20, PT 550, 30% FiO2, PEEP of 5 cm water with SAS score of 3 * Last ABG was taken on May 14 * PH of 7.42, PaCO2 38, PaO2 of 107, bicarbonate of 24 * Today propofol drip is discontinued and started on fentanyl 25mcg q2hrs and prn bolus for agitation. * Ativan drip is reduced to half Infectious Diseases: Peritonitis * Patient found to have peritonitis secondary to peritoneal fistula * Has been afebrile without any significant leukocytosis. * On meropenem 1 mg every 8 hours-(Day 5) Cardiovascular: History of hypertension and hyperlipidemia, currently stable. -Telemetry cardiac monitoring -Normal sinus rhythm overnight Hematology: Stable hemoglobin and hematocrit. Patient developed a small upper GI bleed thought to be secondary to nasogastric tube suction. -Continue to monitor vitals closely - H&H today is 9.9/29.4 Metabolic: Electrolytes Keep Magnesium >2 and phosphorus >4. MVI, Thiamine and folate through TPN QTc prolonged DC halodol and check QTc daily Alimentary: Patient admitted for perforated duodenal ulcer complicated with peritonitis. Currently status post status post surgical repair. Surgical sites continue to drain a clear liquid, however are without any surrounding erythema or induration. These are to be started this evening. -Abdominal x-ray daily -Dobbhoff tube in place -Nasal jejunal tube in place -NG tube, now clamped -Nothing by mouth -TPN nutrition patient was gradually tapered off as we started him on triplets yesterday reported a 40 mL per hour -Lipase is elevated as a result of TPN most probably. -Protonix drip Neurological: Intubated and sedated Skin: Patient has multiple surgical site incisions on his abdomen that are continuing to drain without any new signs of infection. No apparent new skin breakdown. DVT/Prophylaxis: mechanical Code Status: Full Code
--- NOTE | 2016-05-17 11:50 | PN- CRCU ---
Subjective HPI/Critical Care Issues: Afebrile. He has been reintubated and sedated. A Pro-Line catheter was placed and the PICC was removed. The Ann catheter was also removed. Still intubated and sedate Now propofol was stopped Pt is on ativan drip Trach in place TUbe feeding has been started ON tpn INtubated and sedated ros as above Was diaphoretic this am Pt had an ekg and qtc appears prolonged no sig stt changes Objective Current Medications: Current Medications Sig/Roberto Start time Last Medication Dose Route Stop Time Status Admin Albuterol Sulfate 3 ML EVERY 4 HRS/AWAKE 05/01 2000 AC 05/17 INH 0832 Fat Emulsion 450 ML 1900 05/17 1900 AC Intravenous IV 05/18 185 Fat Emulsion 450 ML 1900 05/16 1900 AC 05/16 Intravenous IV 05/17 185 1948 Fat Emulsion 450 ML 1900 05/15 1900 DC 05/15 Intravenous IV 05/16 185 2045 Haloperidol 1.5 MG Q8P PRN 05/14 1345 AC IM Hydromorphone HCl 2 MG Q4-PRN PRN 05/04 1745 AC 05/15 IV 2225 Insulin Aspart 0 Q8 05/08 1400 AC 05/17 SC 0607 Lactulose 20 GM BID 05/16 2200 AC 05/17 PO 0932 Lactulose 1 BOT BID 05/11 2200 DC 05/16 [place] 1005 Lorazepam 50 MG Q24H 05/12 0745 AC 05/16 Sodium Chloride 500 ML IV 1006 Magnesium Sulfate 1 GM ONCE ONE 05/17 0830 AC 05/17 Dextrose/Water 100 ML IV 05/17 1229 0830 Meropenem 1 GM IQ8 05/13 0000 AC 05/17 IV 0800 Nystatin 5 ML 4 TIMES/DAY 05/13 1000 AC 05/17 PO 0932 Ondansetron HCl 4 MG Q8P PRN 04/22 0600 AC IV Pantoprazole Sodium 40 MG Q5H 05/15 0415 AC 05/17 Sodium Chloride 100 ML IV 0608 Propofol 1,000 MG .STK-MED ONE 05/17 0302 DC IV 05/17 0303 Propofol 1,000 MG .STK-MED ONE 05/16 2346 DC IV 05/16 2347 Propofol 1,000 MG .STK-MED ONE 05/16 1538 DC IV 05/16 1539 Propofol 1,000 MG CONTINOUS INFUSION 05/15 1915 AC 05/17 N/A 100 ML IV 0413 Sodium Chloride 1,000 ML Q20H 05/14 2000 AC 05/17 IV 0413 Total Parenteral 1 UNIT 05/17 AC Nutrition IV 05/18 1859 Total Parenteral 1 UNIT 05/16 AC 05/16 Nutrition IV 05/17 Total Parenteral 1 UNIT 05/15 DC 05/15 Nutrition IV 05/16 Vital Signs & I&O Last 24 Hrs of Vitals and I&O: Vital Signs Date Time Temp Pulse Resp B/P Pulse O2 O2 Flow FiO2 Ox Delivery Rate 05/17 1104 30 05/17 0824 30 05/17 0800 95 Ventilator 30% 05/17 0542 30 05/17 0400 98.7 95 26 156/90 05/17 0400 94 Ventilator 30% 05/17 0239 30 05/17 0037 30 05/17 0000 96.9 94 24 160/92 05/17 0000 95 Ventilator 30% 05/17 0000 96.9 94 24 160/92 95 Ventilator 30% 05/16 2229 30 05/16 2000 98.0 92 24 120/68 05/16 2000 94 Ventilator 30% 05/16 1912 30 05/16 1605 30 05/16 1600 98.9 80 22 126/78 05/16 1600 98 Ventilator 30% 05/16 1600 98.9 80 22 126/78 98 Ventilator 30% 05/16 1326 30 Intake & Output 05/17 1600 05/17 0800 05/17 0000 Intake Total 1824.0 1920.0 Output Total 1160 1450 Balance 664.0 470.0 Intake, IV 707 817 Intake, Lipid 150.0 150.0 Intake, Oral 0 Intake, Other 50 Intake, 833 833 TPN/PPN Intake, Tube 74 40 Feeding Intake, Tube 60 30 Irrigant Number 2 Bowel Movements Output, 845 800 Drainage Output, Stool 200 Output, Urine 315 450 Patient 289 lb 289 lb Weight Impression/Plan Impression/Plan Impression/Plan: General Appearance: sedated, on mechanical ventilation, not responsive Head: atraumatic Neck: supple, trach in place, minimal blood around trach site but no lidia bleeding Respiratory: no respiratory distress, clear anteriorly, lungs expand symmetrically, trachea midline Cardiovascular: regular rate/rhythm, tachycardia, S1 and S2 heard Abdomen: CONNIE drains in place, NG tube has no bloody fluid drainage Extremities: warm and dry Skin: no cyanosis or edema Impression/Plan: 1. 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 2. Respiratory failure s/p tracheostomy placement. No evidence of hemoptysis. 3. Acute bleeding with anemia, likely secondary to NG tube trauma. This appears to have stabilized with no active bleeding 4. Ongoing encephalopathy - hepatic? metabolic? Warnicke Korsakoff? The patient has had multiple studies for evaluation including an EEG and CT scan of the brain. He continues to receive lactulose for presumed hepatic encephalopathy. He received high-dose thiamine. He remains on 0.5 mg of Ativan per hour for severe agitation. 5. Fever, cultures negative, on meropenem. 6. 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 7. Severe malnutrition - on TPN. 8. Now started on tube feeding with a du ko feeding noted REC * DC haldol and check qtc daily * DC ivf * Cont vent * PSV trials * DC propofol * Cont ativan, reduce dose by half and use prn ativan 1mg iv q 1-2 hrs prn only * Low dose fentnyl 25 mcg q 2 hrs prn bolus if needed aswell for agitation * Qtc is prolonged and seroquel would have been ideal but it cannot be used * Keep mg more than 1.9 * Can give one mg iv today * SLowly increase tube feeding to 20 and will plan on tpn taper soon * Check lipase today * Monitor cbc * MVI, thiamine, folate to continue in TPN. * Continue DVT and GI prophylaxis. * Skin care protocol to continue. * Out of bed to chair daily. * Give breaks from Alps periodically as per family request. * Continue all supportive care. * Family updated at the bedside.
[2016-05-17 16:00] VITALS: BP 100/60
[2016-05-18] VITALS: BP 134/86
--- NOTE | 2016-05-18 00:56 | NUR ---
PATIENT SEEN TO BE VOMITING. UPON ASSESSMENT, PATIENT IS HAVING AN EPISODE OF LARGE AMOUNTS OF PROJECTILE, THIN, BRIGHT YELLOW VOMIT. PATIENT'S HEAD IS TURNED TO THE SIDE, TUBE FEED IS IMMEDIATELY SHUT OFF AND SUCTION IS INITIATED. UPON FURTHER ASSESSMENT, RAYMUNDO TUBE IS SEEN TO BE COMING OUT OF PATIENT'S MOUTH. DR. DICKINSON AND DR. LEGER CALLED TO BEDSIDE TO ASSESS PATIENT. DECISION IS MADE TO DISCONTINUE TUBE FEED AT THIS TIME AND OBTAIN AN ABD XRAY TO CONFIRM PLACEMENT OF THIS TUBE. PATIENT CONTINUES TO BE AGITATED AND RESTLESS AND IS SEEN TRYING TO REMOVE RAYMUNDO TUBE WITH HIS TONGUE. IV FENT IS GIVEN AT THIS TIME. WILL CONT TO MONITOR.
--- NOTE | 2016-05-18 02:55 | RADIOLOGY REPORT ---
EXAMINATION: XR PORTABLE ABDOMEN CLINICAL INFORMATION: Assess feeding tube position. COMPARISON: Prior abdominal radiography 05/17/2016. TECHNIQUE: Frontal view of the abdomen was obtained. FINDINGS/IMPRESSION: An enteric tube terminates over the stomach. Note should be made that this does not clearly represent a Dobbhoff tube (question if this represents an NG/OG tube). The Dobbhoff tube demonstrated on most recent abdominal radiograph in the duodenum is no longer visualized. Nonobstructive bowel gas pattern. Right upper quadrant drain is redemonstrated.
[2016-05-18 04:37] LABS: ABSOLUTE BASOPHIL COUNT 0.1 /CUMM (0.0-0.2); ABSOLUTE EOSINOPHIL COUNT 0.2 /CUMM (0.0-0.7); ABSOLUTE GRANULOCYTE CT 9.8 /CUMM (1.4-6.5); ABSOLUTE MONOCYTE COUNT 0.9 /CUMM (0.10-0.60); BASOPHIL % 0.4 % (0.0-2.0); EOSINOPHIL % 1.3 % (0-5); GRANULOCYTE % 82.9 % (42.2-75.2); HEMATOCRIT 29.8 % (42-52); MEAN CORPUSCULAR HGB 31.3 PG (27.0-31.0); MEAN CORPUSCULAR HGB CONC 33.8 G/DL (33.0-37.0); MEAN CORPUSCULAR VOLUME 92.5 FL (80.0-94.0); PLATELET COUNT 191 /CUMM (130-400); RBC DISTRIBUTION WIDTH 15.9 % (11.5-14.5); RED BLOOD CELL CT 3.23 /CUMM (4.70-6.10); WHITE BLOOD CELL COUNT 11.9 /CUMM (4.8-10.8)
--- NOTE | 2016-05-18 07:11 | Event Note ---
Event Note Event Note: In the night. Patient had one episode of severe projectile vomiting.vomitus was yellowish green in color and amount was approximately 500 mL, there was no blood or any clots.After that, his Dobbhoff tube came out from the mouth. We did the abdominal x-ray and saw the position of ,tube which cannot be visualized in the duodenum. After discussion with Dr. hkalil and Dr Riccardo Dawn MD, I removed the tube.
[2016-05-18 08:00] VITALS: BP 110/64
--- NOTE | 2016-05-18 08:22 | PN- Infect Dx ---
Subjective Subjective: Afebrile without complaints. He vomited overnight, with displacement of the Dobhoff tube, which was subsequently removed. Objective Last 24 Hrs of Vital Signs/I&O Vital Signs Date Time Temp Pulse Resp B/P Pulse O2 O2 Flow FiO2 Ox Delivery Rate 05/18 0759 30 05/18 0601 30 05/18 0400 94 Ventilator 30% 05/18 0315 30 05/18 0037 30 05/18 0000 94 Ventilator 30% 05/18 0000 98.4 104 23 134/86 94 Ventilator 30% 05/17 2159 30 05/17 2000 96 Ventilator 30% 05/17 1915 30 05/17 1621 30 05/17 1600 96 Ventilator 30% 05/17 1600 98.3 86 23 100/60 96 Ventilator 30% 05/17 1414 30 05/17 1200 92 Ventilator 30% 05/17 1104 30 05/17 0824 30 Intake & Output 05/18 1600 05/18 0800 05/18 0000 Intake Total 1062 1398 Output Total 2310 1660 Balance -1248 -262 Intake, IV 1062 1164 Intake, Other 60 Intake, Tube 174 Feeding Output, 1100 1160 Drainage Output, 500 Emesis Output, Stool 300 100 Output, Urine 410 400 Physical Exam Other Physical Findings: He appears comfortable on the ventilator in no acute distress Chest Pro-Line in the right upper chest with no inflammation at the site Lungs are clear Heart regular rhythm Abdomen is soft, nontender with positive bowel sounds; CONNIE drains remain in place , with no output reported from drain #1 Extremities no cyanosis, clubbing or edema Results Last 24 Hours of Lab Results: Laboratory Tests 05/18 05/17 05/17 0400 1800 0834 Chemistry Sodium (137 - 145 mmol/L) 136 L Potassium (3.5 - 5.1 mmol/L) 3.8 Chloride (98 - 107 mmol/L) 104 Carbon Dioxide (22 - 30 mmol/L) 26 Anion Gap (5 - 16) 6 BUN (9 - 20 mg/dL) 20 Creatinine (0.7 - 1.2 mg/dL) 0.6 L Estimated GFR (>60 ml/min) > 60 Glucose (65 - 99 mg/dL) 173 H Calcium (8.4 - 10.2 mg/dL) 8.5 Phosphorus (2.5 - 4.5 mg/dL) 3.6 Magnesium (1.6 - 2.3 mg/dL) 2.0 Total Bilirubin (0.2 - 1.3 mg/dL) 1.5 H AST (17 - 59 U/L) 65 H ALT (21 - 72 U/L) 39 Troponin I (<0.11 ng/ml) < 0.01 Albumin (3.5 - 5.0 g/dL) 2.2 L Hematology CBC w Diff NO MAN DIFF REQ Cancelled WBC (4.8 - 10.8 /CUMM) 11.9 H Cancelled RBC (4.70 - 6.10 /CUMM) 3.23 L Cancelled Hgb (14.0 - 18.0 G/DL) 10.1 L Cancelled Hct (42 - 52 %) 29.8 L Cancelled MCV (80.0 - 94.0 FL) 92.5 Cancelled MCH (27.0 - 31.0 PG) 31.3 H Cancelled RDW (11.5 - 14.5 %) 15.9 H Cancelled Plt Count (130 - 400 /CUMM) 191 Cancelled MPV (7.4 - 10.4 FL) 10.0 Cancelled Gran % (42.2 - 75.2 %) 82.9 H Lymphocytes % (20.5 - 51.1 %) 8.2 L Monocytes % (1.7 - 9.3 %) 7.2 Eosinophils % (0 - 5 %) 1.3 Basophils % (0.0 - 2.0 %) 0.4 Absolute Granulocytes (1.4 - 6.5 /CUMM) 9.8 H Absolute Lymphocytes (1.2 - 3.4 /CUMM) 1.0 L Absolute Monocytes (0.10 - 0.60 /CUMM) 0.9 H Absolute Eosinophils (0.0 - 0.7 /CUMM) 0.2 Absolute Basophils (0.0 - 0.2 /CUMM) 0.1 PUBS MCHC (33.0 - 37.0 G/DL) 33.8 Cancelled Last 24 Hours of Garcia Results: No recent cultures Assessment/Plan Impression: Stable with temperatures remaining normal on Meropenem, restarted 6 days ago empirically because of the concern of an ongoing duodenal leak, now 26 days status post laparoscopic Clint plication for a perforated duodenal ulcer. His white blood cell count has increased slightly as has his lipase, which is of unclear significance, but may warrant further evaluation. He remains on the ventilator with respiratory status stable. Feedings had been started, but, unfortunately, his Dobhoff tube had to be removed after his episode of projectile vomiting overnight. Suggestion: 1. Further management regarding his presumed leak and feeding per GI and Surgery 2. GI and surgical follow-up regarding his increasing lipase with consideration of a repeat CT of the abdomen and pelvis 3. Continue Meropenem
--- NOTE | 2016-05-18 08:41 | PN- Resident CRCU ---
Subjective HPI/CRCU Issues: Patient seen and examined. He is seen lying flat in bed with multiple lines in place. He is minimally responsive to questioning today. He appears anxious and confused in addition to being somnolent however in no acute distress. Questioning continues to be limited as patient is nonverbal secondary to his current medical condition. Review of systems is unobtainable. Overnight patient developed acute onset projectile vomiting of apparently estimated greater than 500 mL of dark bilious fluid. The KO tube was seen to be dangling out of his mouth after this episode for which an abdominal x-ray was obtained that cannot determine the termination point of the line, which was subsequently removed. This morning the patient was seen to have another episode of vomiting of dark bilious material, approximately 250 mL. Objective Vital Signs & I&O Last 8 Hrs of Vitals and I&O: Vitals: - Temperature: - Heart Rate: 84-108 - Respiratory Rate: 19-27 - Systolic Blood pressure: 121-162 - Diastolic Blood pressure: 71-101 - Oxygen Saturation: 93-98% via tracheostomy on 30% FiO2 Exam General Appearance: well developed/nourished, anxious, mild distress, obese Other Physical Findings: General -well-developed, obese male in bilateral upper extremity soft restraints in mild distress HEENT - NCAT, PERRL, EOMI, anicteric sclera Cardio - S1, S2 w/o murmurs/gallops/rubs Resp - CTA bilaterally w/o wheezing/rhochi/crackles, tracheostomy in place GI -soft, nontender, nondistended, bowel sounds present, multiple surgical incision sites well-healing without any obvious drainage Neuro - Awake and alert, CN II - XII grossly intact Weaning Parameters NIF: 41 Minute Volume: 11.7 Resp rate: 23 Vt: 505 Heart Rate: 91 Weaning Schedule Start Time: 1914 Minute Volume: 11.2 Resp Rate: 22 Vt: 510 Heart Rate: 92 End Time: 2114 Minute Volume: 18.2 Resp Rate: 29 Vt: 620 Heart Rate: 107 Start Time: 1345 Resp Rate: 24 Heart Rate: 113 Current Medications: Current Medications Sig/Roberto Start time Last Medication Dose Route Stop Time Status Admin Albuterol Sulfate 3 ML EVERY 4 HRS/AWAKE 05/01 2000 AC 05/18 INH 1145 Fat Emulsion 450 ML 1900 05/18 1900 AC Intravenous IV 05/19 1859 Fat Emulsion 450 ML 1900 05/17 1900 AC 05/17 Intravenous IV 05/18 185 184 Fat Emulsion 450 ML 1900 05/16 1900 DC 05/16 Intravenous IV 05/17 185 194 Fentanyl Citrate 25 MCG Q2 PRN 05/17 1200 AC 05/18 IV 0832 Hydromorphone HCl 2 MG ONCE PRN 05/18 0545 CAN IV Hydromorphone HCl 2 MG Q4-PRN PRN 05/04 1745 DC 05/15 IV 2225 Insulin Aspart 0 Q8 05/08 1400 AC 05/18 SC 0613 Lactulose 20 GM BID 05/16 2200 AC 05/18 PO 0833 Lorazepam 1 MG Q6P PRN 05/18 1230 AC IV Lorazepam 1 MG Q2 HRS NEEDED PRN 05/17 1215 DC IV Lorazepam 50 MG Q24H 05/12 0745 AC 05/17 Sodium Chloride 500 ML IV 1300 Magnesium Sulfate 1 GM ONCE ONE 05/17 1200 DC 05/17 Dextrose/Water 100 ML IV 05/17 1559 1205 Meropenem 1 GM IQ8 05/13 0000 AC 05/18 IV 0832 Nystatin 5 ML 4 TIMES/DAY 05/13 1000 AC 05/18 PO 0833 Ondansetron HCl 4 MG Q8P PRN 04/22 0600 AC IV Pantoprazole Sodium 40 MG Q5H 05/15 0415 AC 05/18 Sodium Chloride 100 ML IV 0833 Total Parenteral 1 UNIT 1900 05/18 190 AC Nutrition IV 05/19 185 Total Parenteral 1 UNIT 0 05/17 1900 AC 05/17 Nutrition IV 05/18 1859 184 Total Parenteral 1 UNIT 05/16 1900 DC 05/16 Nutrition IV 05/17 185 1950 Impression/Plan Impression/Problem List Impression: Overnight patient had an episode of projectile vomiting which dislodged the recently placed KO tube by interventional radiology, which was subsequently removed by the covering night medical team. The vomiting was seen to be copious amounts of bilious fluid hostilely containing the recently started tube feeds. TPN nutrition has continued and tube feeds have been placed on hold. Patient is responsive to questioning today with eye movements and hand grasps however it is unclear if he is understanding of information given as he does appear somnolent and medicated. Propofol has been discontinued and Ativan/fentanyl are being given as needed. Patient is still maintained on a tracheostomy however has been saturating well and can be considered to be weaned off the vent. Complete blood counts have been stable and there has been no further evidence of an upper GI bleed. Problem list: -Duodenal ulcer perforation status post surgical repair -Possible peritonitis, on meropenem -Sepsis, now resolved -Delirium -History of alcohol abuse Gastrointestinal: Patient admitted for perforated duodenal ulcer complicated with peritonitis. Currently status post status post surgical repair. Surgical sites continue to drain a clear liquid, however are without any surrounding erythema or induration. These are to be started this evening. Tube feeds held. -KO tube removed -NG tube, now clamped -Nothing by mouth -TPN nutrition -Protonix drip -Follow up on formal nutrition consult in a.m. Infectious disease: Patient was febrile to 101.8 overnight despite being maintained on antibiotics. There is some consideration for potential disseminated candidal infection however interventions to address this will be deferred for 48 hours to assess patient's response to current antibiotic regimen. . -Meropenem 1 g IV every 8 hours -Nystatin swish and swallow for thrush Respiratory: Patient is saturating well supplemental oxygen provided via tracheostomy with 30 % O2. -TRC neb treatments -Supplemental oxygen via tracheostomy and ventilator Neurology: Patient continues to remain disoriented and agitated. -Lactulose one bottle SD twice a day -Ativan drip, taper as tolerated -Propofol drip discontinued later today -Haldol 1 mg IM every 6 hours as needed for agitation Cardiovascular: History of hypertension and hyperlipidemia, currently stable. Patient has had a prolonged QTC on EKG monitoring. Patient was maintained on Haldol for agitation which could account for this. -Telemetry cardiac monitoring -Daily EKG for monitoring of QTC prolongation, resume Haldol when normalized Endocrine: Continue to monitor Accu-Cheks 3 times a day before meals/at bedtime. -NovoLog sliding scale insulin Hematology: Stable hemoglobin and hematocrit. Patient developed a small upper GI bleed thought to be secondary to nasogastric tube suction. Now resolved. -Continue to monitor vitals closely Integumentary: Patient has multiple surgical site incisions on his abdomen that are continuing to drain without any new signs of infection. No apparent new skin breakdown. -Half Normal saline at 50 mL per hour Pain plan: -Hydromorphone 2 mg IV every 4 hours as needed for pain 7-10 Diet-nothing by mouth, continue TPN nutrition as above DVT prophylaxis-subcutaneous heparin CODE STATUS-full code Problem List: 1. Perforation bowel 2. Peritonitis Pain Ratin Tomorrow's Labs & Rationales: EKG-assessment for QTc prolongation CBC/ICU bundle Lipase Plan DVT/Prophylaxis: mechanical Code Status: Full Code
--- NOTE | 2016-05-18 11:10 | PN- Pulmonary ---
Subjective HPI/Critical Care Issues: Afebrile without complaints. He vomited overnight, with displacement of the Dobhoff tube, which was subsequently removed. Afebrile More responsive today Stable ON PSV trial Stable Objective Current Medications: Current Medications Sig/Roberto Start time Last Medication Dose Route Stop Time Status Admin Albuterol Sulfate 3 ML EVERY 4 HRS/AWAKE 05/01 2000 AC 05/18 INH 0751 Fat Emulsion 450 ML 1900 05/18 190 AC Intravenous IV 05/19 185 Fat Emulsion 450 ML 1900 05/17 190 AC 05/17 Intravenous IV 05/18 185 184 Fat Emulsion 450 ML 1900 05/16 190 DC 05/16 Intravenous IV 05/17 185 1948 Fentanyl Citrate 25 MCG Q2 PRN 05/17 1200 AC 05/18 IV 0832 Haloperidol 1.5 MG Q8P PRN 05/14 1345 DC IM Hydromorphone HCl 2 MG ONCE PRN 05/18 0545 CAN IV Hydromorphone HCl 2 MG Q4-PRN PRN 05/04 1745 AC 05/15 IV 2225 Insulin Aspart 0 Q8 05/08 1400 AC 05/18 SC 0613 Lactulose 20 GM BID 05/16 2200 AC 05/18 PO 0833 Lorazepam 1 MG Q2 HRS NEEDED PRN 05/17 1215 AC IV Lorazepam 50 MG Q24H 05/12 0745 AC 05/17 Sodium Chloride 500 ML IV 1300 Magnesium Sulfate 1 GM ONCE ONE 05/17 1200 DC 05/17 Dextrose/Water 100 ML IV 05/17 1559 1205 Magnesium Sulfate 1 GM ONCE ONE 05/17 0830 DC 05/17 Dextrose/Water 100 ML IV 05/17 1229 0830 Meropenem 1 GM IQ8 05/13 0000 AC 05/18 IV 0832 Nystatin 5 ML 4 TIMES/DAY 05/13 1000 AC 05/18 PO 0833 Ondansetron HCl 4 MG Q8P PRN 04/22 0600 AC IV Pantoprazole Sodium 40 MG Q5H 05/15 0415 AC 05/18 Sodium Chloride 100 ML IV 0833 Propofol 1,000 MG CONTINOUS INFUSION 05/15 191 DC 05/17 N/A 100 ML IV 0413 Sodium Chloride 1,000 ML Q20H 05/14 2000 DC 05/17 IV 0413 Total Parenteral 1 UNIT 1900 05/18 190 AC Nutrition IV 05/19 1859 Total Parenteral 1 UNIT 1900 05/17 1900 AC 05/17 Nutrition IV 05/18 1859 184 Total Parenteral 1 UNIT 05/16 190 DC 05/16 Nutrition IV 05/17 1859 1950 Vital Signs & I&O Last 24 Hrs of Vitals and I&O: Vital Signs Date Time Temp Pulse Resp B/P Pulse O2 O2 Flow FiO2 Ox Delivery Rate 05/18 0800 99 Ventilator 30% 05/18 0759 30 05/18 0601 30 05/18 0400 94 Ventilator 30% 05/18 0315 30 05/18 0037 30 05/18 0000 94 Ventilator 30% 05/18 0000 98.4 104 23 134/86 94 Ventilator 30% 05/17 2159 30 05/17 2000 96 Ventilator 30% 05/17 1915 30 05/17 1621 30 05/17 1600 96 Ventilator 30% 05/17 1600 98.3 86 23 100/60 96 Ventilator 30% 05/17 1414 30 05/17 1200 92 Ventilator 30% Intake & Output 05/18 1600 05/18 0800 05/18 0000 Intake Total 1062 1398 Output Total 2310 1660 Balance -1248 -262 Intake, IV 1062 1164 Intake, Other 60 Intake, Tube 174 Feeding Output, 1100 1160 Drainage Output, 500 Emesis Output, Stool 300 100 Output, Urine 410 400 Impression/Plan Impression/Plan Impression/Plan: General Appearance: sedated, on mechanical ventilation, not responsive Head: atraumatic Neck: supple, trach in place, minimal blood around trach site but no lidia bleeding Respiratory: no respiratory distress, clear anteriorly, lungs expand symmetrically, trachea midline Cardiovascular: regular rate/rhythm, tachycardia, S1 and S2 heard Abdomen: CONNIE drains in place, NG tube has no bloody fluid drainage Extremities: warm and dry Skin: no cyanosis or edema Impression/Plan: 1. 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 2. Respiratory failure s/p tracheostomy placement. No evidence of hemoptysis. 3. Acute bleeding with anemia, likely secondary to NG tube trauma. This appears to have stabilized with no active bleeding 4. Ongoing encephalopathy - hepatic? metabolic? Warnicke Korsakoff? The patient has had multiple studies for evaluation including an EEG and CT scan of the brain. He continues to receive lactulose for presumed hepatic encephalopathy. He received high-dose thiamine. He remains on 0.5 mg of Ativan per hour for severe agitation. 5. Fever, cultures negative, on meropenem. 6. 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 7. Severe malnutrition - on TPN. 8. Now started on tube feeding with a sheila ko feeding yesterday and now unfortunately did have his tube dislodged REC * Check qtc daily and once low can resume low dose haldol * Cont vent, PSV or trach mask * Cont ativan, DC drip and use ativan 1 mg q6 today atc and then q8 atc in am and so on. Use prn ativan bolus for severe agitation with fentanyl * Keep mg more than 1.9 * Can give one mg iv today * SLowly increase tube feeding to 20 and will plan on tpn taper soon * Check lipase today * Monitor cbc * Continue DVT and GI prophylaxis. * Skin care protocol to continue. * Continue all supportive care. * ASk surg about using ng tube for lactulose and meds * Ask IR for ko feeding tube today or in am * Cont TPN for now * Check labs for tpn
--- NOTE | 2016-05-18 15:57 | NUR ---
RESUMED PT CARE AT 0730. PT MORE APPROPRIATE TODAY PT ABLE TO NOD Y/N, MOUTH WORDS, FOLLOWS SIMPLE COMMANDS. OCCASIONAL BOUTS OF AGITATION TREATED WITH FENTANYL 25MCG AND REMAINS ON .25MG/HR OF ATIVAN. PT TRIALED OFF VENT AND REMAINS ON TRACH MASK 30%. LUNGS CLR. SATS ABOVE 95% SECRETIONS AROUND TRACH OPENING. FREQUENT DRESSING CHANGES AND TRACH CARE PERRFORMED. PT VOMITED SMALL AMOUNT OF BILIOUS SECRETIONS. NGT TURNED ON INTERMITTENT LWS W 300 ML OF BILIOUS OUTPUT OUT/ 8 HRS SHIFT. 3 JPS REMAIN INSITU W FLUFF/BLAYNE DRESSINGS CHANGED. ABDOMEN SOFT AND DISTENDED W + BS. PT REMAINS W RECTAL TUBE INTACT WITH WATERY BROWN/GREEN STOOL. STERLING INSITU W 20 ML PATRICK URINE PER HOUR. TPN/LIPIDS, PROTONIX GTT INFUSING.
[2016-05-18 16:00] VITALS: BP 138/80
--- NOTE | 2016-05-18 17:28 | PN- General Surgery ---
Surgical Brief Attending Note Brief Attending Note: Overnight events noted. Feeding tube came out d/t emesis. + episode of emesis again today after lactulose given via NGT. Clinically remains unchanged. More awake and following commands. Ok to give feeds via NGT until IR can get a new feeding tube in. NGT to LIWS until vomiting resolves. Consider giving promotility agents.
[2016-05-19] VITALS: BP 158/98
--- NOTE | 2016-05-19 05:31 | PN- General Surgery ---
Subjective Subjective: No acute overnight events reported, patient is more alert, following commands this am. Objective Vital Signs and I&Os Vital Signs Date Time Temp Pulse Resp B/P Pulse O2 O2 Flow FiO2 Ox Delivery Rate 05/19 0400 99 Trach Mask 30% 05/19 0000 99 Trach Mask 30% 05/19 0000 97.0 98 16 158/98 99 Trach Mask 30% 05/18 2000 98 Trach Mask 30% 05/18 1933 98 Trach Mask 30% 05/18 1600 97.7 102 22 138/80 99 Trach Mask 30% 05/18 1600 99 Trach Mask 30% 05/18 1200 97 Trach Mask 30% 05/18 1112 30 05/18 0800 99 Ventilator 30% 05/18 0800 97.7 90 22 110/64 99 Ventilator 30% 05/18 0759 30 05/18 0601 30 Intake & Output 05/19 0800 05/19 0000 05/18 1600 05/18 0800 05/18 0000 05/17 1600 Intake Total 1247.4 1163 1062 1398 1750.0 Output Total 550 1100 2310 1660 650 Balance 697.4 63 -1248 -262 1100.0 Intake, IV 164.2 1163 1062 1164 626.8 Intake, Lipid 149.6 149.6 Intake, Oral 0 0 Intake, Other 100 60 Intake, 833.6 833.6 TPN/PPN Intake, Tube 174 80 Feeding Intake, Tube 60 Irrigant Number 1 1 Bowel Movements Output, 600 1100 1160 650 Drainage Output, 500 Emesis Output, 250 300 Gastric Drainage Output, Stool 50 300 100 Output, Urine 250 200 410 400 Patient 299 lb 289 lb Weight Physical Exam: General: Alert, able to follow simple commands Cardiac: RRR, s1s2 Pulmonary: CTA, on trach mask presently Abdomen: Soft, mild distension, irritation noted around drains, annie remain in place. CONNIE's continue to collect serous/bilious drainage Extremities: Moves all extremites. Skin warm and well perfused, bilateral calves soft and non-tender Assessment/Plan Assessment/Plan Assessment: 51-year-old male status post Clint patch repair of perforated ulcer /status post placement of tracheostomy due to respiratory failure. KO feeding tube was discontinued one day ago after being dislodged following an episode of vomitting. -Plan for IR to re-place KO feeding tube today -Continue tpn for now -May use NGT for tube feeds until feeding tube in place -Continue primary management per medical/icu team -Will discuss drain removal with Ann Pascal and Lidia -Keep CONNIE to suction for now -Will consider staple removal over the next few days Core Measures/Miscellaneous Venous Thromboembolism VTE Risk Factors: Acute medical illness, Age > 40, Obesity, Surgery VTE Contraindications: Abn Clotting Times VTE Prophylaxis Ordered Inpt Mechanical (ALPS/TEDS) VTE Diagnosis: No VTE Type: NONE VTE Confirmed by (Test): NONE Beta Terrence Is Beta Terrence a Home Med? Yes If Yes, Was This Ordered Today? No If No, Why Not? hypotension Antibiotics Is Patient on Antibiotics? No
[2016-05-19 05:56] LABS: ABSOLUTE BASOPHIL COUNT 0 /CUMM (0.0-0.2); ABSOLUTE EOSINOPHIL COUNT 0.3 /CUMM (0.0-0.7); ABSOLUTE GRANULOCYTE CT 9.9 /CUMM (1.4-6.5); BASOPHIL % 0.3 % (0.0-2.0); EOSINOPHIL % 2.6 % (0-5); GRANULOCYTE % 80.8 % (42.2-75.2); HEMATOCRIT 30.4 % (42-52); MEAN CORPUSCULAR HGB 31.4 PG (27.0-31.0); MEAN CORPUSCULAR HGB CONC 33.8 G/DL (33.0-37.0); MEAN CORPUSCULAR VOLUME 92.7 FL (80.0-94.0); MEAN PLATELET VOLUME 10.4 FL (7.4-10.4); PLATELET COUNT 211 /CUMM (130-400); RBC DISTRIBUTION WIDTH 15.6 % (11.5-14.5); RED BLOOD CELL CT 3.28 /CUMM (4.70-6.10); WHITE BLOOD CELL COUNT 12.3 /CUMM (4.8-10.8)
--- NOTE | 2016-05-19 07:57 | NUR ---
RECEIVED PATIENT ALERT AND FOLLOWING SOME COMMANDS AND BROWN. DIFFICULT WITH SOME CARE AND RESTLESS/AGITATED AT TIMES. ATIVAN GTT RUNNING AT 0.125 MG/HR OR 1.2 MLS/HR THROUGH A #20 TO THE ENID PLACED 05/15. NSR-ST 90S-110S, AND MRA=[id number]. PATIENT DENIES CHEST PAIN. PATIENT HAS #9 PORTEX WITH 30% TRACH MASK. O2 SAT 97-100%. NEBS ATC. THICK, YELLOW SPUTUM NOTED. DRESSING CHANGED/TRACH CARE DONE QSHIFT/ NEEDED. LUNG SOUNDS CLEAR IN THE UPPERS AND DIMINISHED TO THE LOWER LOBES. ABDOMEN DISTENDED/SOFT WITH HYPOACTIVE SOUNDS. RECTAL TUBE IN PLACE DRAINING DARK/GREEN SLUDGE-LIKE STOOL. LEAKING AT TIMES AROUND THE SITE. NGTUBE TO R NARES TO LOW WALL SUCTION. TO GET LACTULOSE THROUGH THE NGT. PROTONIX GTT RUNNING AT 20 MLS/HR OR 8 MG/HR THROUGH THE RCW DUAL LUMEN PROLINE. NO BLEEDING NOTED. TPN RUNNING AT 104.2 MLS/HR AND LIPIDS ALSO RUNNING AT 18.7 MLS/HR THROUGH A RCW DUAL LUMEN PICC LINE. PATIENT IS OTHERWISE NPO. SKIN RED/WARM/MOIST. THREE CONNIE DRAINS TO ABDOMEN W/ DRESSINGS. L SIDE CONNIE #1 DRAINING SCANT TO NOT SEROUS, MIDLINE CONNIE #2 DRAINING LARGE SEROUS FLUID INTO CONNIE AND AROUND SITE. DRESSING CHANGED NEEDED. R CONNIE DRAIN #3 DRAINING LARGE SEROUS FLUID WELL.
[2016-05-19 08:00] VITALS: BP 132/80
--- NOTE | 2016-05-19 08:07 | PN- Resident CRCU ---
Subjective HPI/CRCU Issues: Patient seen and examined. He is seen lying flat in bed maintained in bilateral upper extremity soft restraints with multiple lines. He is somewhat alert today and appears to be in no acute distress. He does however appear to be mildly anxious. He is accompanied by his brother Marquise in the room was given an update of the current management plan and has no questions at this time. Review of systems is unobtainable. No overnight events reported - NG tube was seen to be draining minimal amounts of red blood this morning while on suction which was subsequently clamped. Objective Vital Signs & I&O Last 8 Hrs of Vitals and I&O: Vitals: - Temperature: - Heart Rate: 94-102 - Respiratory Rate: 12-20 - Systolic Blood pressure: 118-165 - Diastolic Blood pressure: 74-89 - Oxygen Saturation: 97-99% via tracheostomy on 30% FiO2 Exam General Appearance: well developed/nourished, awake, anxious, obese Other Physical Findings: General -well-developed, obese male who appears mildly anxious HEENT - NCAT, PERRL, EOMI, anicteric sclera, NG tube in place Cardio - S1, S2 w/o murmurs/gallops/rubs Resp - CTA bilaterally w/o wheezing/rhochi/crackles, tracheostomy in place GI -soft, nontender, non-distended, bowel sounds present, multiple surgical incision sites well-healing without any obvious drainage Neuro -awake and anxious, minimally responsive to commands Weaning Parameters NIF: 39 Minute Volume: 14.0 Resp rate: 23 Vt: 588 Heart Rate: 90 Weaning Schedule Start Time: 09 Minute Volume: 13 Resp Rate: 25 Vt: 557 Heart Rate: 90 End Time: 1105 Minute Volume: 15 Resp Rate: 20 Vt: 680 Heart Rate: 100 Start Time: 1345 Resp Rate: 24 Heart Rate: 113 Current Medications: Current Medications Sig/Roberto Start time Last Medication Dose Route Stop Time Status Admin Albuterol Sulfate 3 ML EVERY 4 HRS/AWAKE 05/01 2000 AC 05/19 INH 0820 Fat Emulsion 450 ML 05/18 1900 AC 05/18 Intravenous IV 05/19 185 190 Fat Emulsion 450 ML 05/17 1900 DC 05/17 Intravenous IV 05/18 185 184 Fentanyl Citrate 25 MCG Q2 PRN 05/17 1200 AC 05/18 IV 2226 Hydromorphone HCl 2 MG Q4-PRN PRN 05/04 1745 DC 05/15 IV 2225 Insulin Aspart 0 Q8 05/08 1400 AC 05/19 SC 0555 Lactulose 20 GM BID 05/16 2200 AC 05/19 PO 0956 Lorazepam 1 MG Q8P PRN 05/19 0815 AC IV Lorazepam 1 MG Q6P PRN 05/18 1230 DC IV Lorazepam 1 MG Q2 HRS NEEDED PRN 05/17 1215 DC IV Lorazepam 50 MG Q24H 05/12 0745 DC 05/17 Sodium Chloride 500 ML IV 1300 Meropenem 1 GM IQ8 05/13 0000 AC 05/19 IV 0747 Nystatin 5 ML 4 TIMES/DAY 05/13 1000 AC 05/19 PO 0956 Ondansetron HCl 4 MG Q8P PRN 04/22 0600 AC IV Pantoprazole Sodium 40 MG Q5H 05/15 0415 AC 05/19 Sodium Chloride 100 ML IV 0704 Potassium Chloride 20 MEQ Q1H 05/19 0845 DC 05/19 IV 05/19 0946 0957 Total Parenteral 1 UNIT 1900 05/18 1900 AC 05/18 Nutrition IV 05/19 1859 1905 Total Parenteral 1 UNIT 1900 05/17 1900 DC 05/17 Nutrition IV 05/18 1859 1842 Impression/Plan Impression/Problem List Impression: Patient has not had any recurrent episodes of vomiting since discontinuation of the KO tube and tube feeds. NG tube is okay to use for medications, lactulose and apparently tube feeds per surgery in the interim while we wait for replacement of the KO tube by interventional radiology. Tube feeds are however on hold, TPN is continuing. Patient remains to be minimally responsive to commands. He has developed leukocytosis that has been slowly worsening over the past 3 days despite being maintained on meropenem, he has however remained afebrile. Has been slowly increasing day over day for unclear reasons. Ativan drip has been discontinued and patient is maintained only on as needed boluses of Ativan/fentanyl for agitation. QTC has normalized however patient has not required any Haldol since its previous discontinuation. Interventional radiology will be contacted tomorrow regarding replacement of the KO tube. Problem list: -Duodenal ulcer perforation status post surgical repair -Possible peritonitis, on meropenem -Sepsis, now resolved -Delirium -History of alcohol abuse Gastrointestinal: Patient admitted for perforated duodenal ulcer complicated with peritonitis. Currently status post status post surgical repair. Surgical sites continue to drain a clear liquid, however are without any surrounding erythema or induration. These are to be started this evening. Tube feeds held. -KO tube removed, replacement pending -NG tube, now clamped -Nothing by mouth -TPN nutrition -Protonix drip -Daily LFTs, lipase Infectious disease: Patient has remained afebrile while on meropenem, however has developed slowly worsening leukocytosis. -Meropenem 1 g IV every 8 hours -Nystatin swish and swallow for thrush -Infectious disease consult following Respiratory: -TRC neb treatments -Supplemental oxygen via tracheostomy and ventilator Neurology: -Lactulose 20 g by mouth twice a day -Ativan drip, now discontinued Cardiovascular: History of hypertension and hyperlipidemia, currently stable. Patient has had a prolonged QTC on EKG monitoring. -Telemetry cardiac monitoring Endocrine: Continue to monitor Accu-Cheks 3 times a day before meals/at bedtime. -NovoLog sliding scale insulin Hematology: Stable hemoglobin and hematocrit. Patient developed a small upper GI bleed thought to be secondary to nasogastric tube suction. Now resolved. -Continue to monitor vitals closely Integumentary: Patient has multiple surgical site incisions on his abdomen that are continuing to drain without any new signs of infection. No apparent new skin breakdown. -Half Normal saline at 50 mL per hour Pain plan: -Hydromorphone discontinued Diet-nothing by mouth, continue TPN nutrition as above DVT prophylaxis-subcutaneous heparin CODE STATUS-full code Problem List: 1. Perforation bowel 2. Peritonitis Pain Ratin Tomorrow's Labs & Rationales: CBC ICU bundle Lipase Plan DVT/Prophylaxis: mechanical Code Status: Full Code
--- NOTE | 2016-05-19 12:07 | PN- Pulmonary ---
Subjective HPI/Critical Care Issues: Patient seen and examined. He is seen lying flat in bed maintained in bilateral upper extremity soft restraints with multiple lines. He is somewhat alert today and appears to be in no acute distress. He does however appear to be mildly anxious. He is accompanied by his brother Marquise in the room was given an update of the current management plan and has no questions at this time. Review of systems is unobtainable. No overnight events reported - NG tube was seen to be draining minimal amounts of red blood this morning while on suction which was subsequently clamped. Objective Current Medications: Current Medications Sig/Roberto Start time Last Medication Dose Route Stop Time Status Admin Albuterol Sulfate 3 ML EVERY 4 HRS/AWAKE 05/01 2000 AC 05/19 INH 1150 Fat Emulsion 450 ML 1900 05/19 1900 AC Intravenous IV 05/20 185 Fat Emulsion 450 ML 1900 05/18 1900 AC 05/18 Intravenous IV 05/19 185 1905 Fat Emulsion 450 ML 1900 05/17 1900 DC 05/17 Intravenous IV 05/18 185 1842 Fentanyl Citrate 25 MCG Q2 PRN 05/17 1200 AC 05/18 IV 2226 Hydromorphone HCl 2 MG Q4-PRN PRN 05/04 1745 DC 05/15 IV 2225 Insulin Aspart 0 Q8 05/08 1400 AC 05/19 SC 0555 Lactulose 20 GM BID 05/16 2200 AC 05/19 PO 0956 Lorazepam 1 MG Q8P PRN 05/19 0815 AC 05/19 IV 1017 Lorazepam 1 MG Q6P PRN 05/18 1230 DC IV Lorazepam 1 MG Q2 HRS NEEDED PRN 05/17 1215 DC IV Lorazepam 50 MG Q24H 05/12 0745 DC 05/17 Sodium Chloride 500 ML IV 1300 Meropenem 1 GM IQ8 05/13 0000 AC 05/19 IV 0747 Nystatin 5 ML 4 TIMES/DAY 05/13 1000 AC 05/19 PO 0956 Ondansetron HCl 4 MG Q8P PRN 04/22 0600 AC IV Pantoprazole Sodium 40 MG Q5H 05/15 0415 AC 05/19 Sodium Chloride 100 ML IV 0704 Potassium Chloride 20 MEQ Q1H 05/19 0845 DC 05/19 IV 05/19 0946 1054 Total Parenteral 1 UNIT 1900 05/19 1900 AC Nutrition IV 05/20 1859 Total Parenteral 1 UNIT 1900 25 1900 AC 05/18 Nutrition IV 05/19 Total Parenteral 1 UNIT 05/17 DC 05/17 Nutrition IV 05/18 Vital Signs & I&O Last 24 Hrs of Vitals and I&O: Vital Signs Date Time Temp Pulse Resp B/P Pulse O2 O2 Flow FiO2 Ox Delivery Rate 05/19 0923 99 Trach Mask 30% 05/19 08 99 Trach Mask 30% 05/19 0800 97.4 98 20 132/80 99 Trach Mask 30% 05/19 0400 99 Trach Mask 30% 05/19 0000 99 Trach Mask 30% 05/19 0000 97.0 98 16 158/98 99 Trach Mask 30% 05/18 2000 98 Trach Mask 30% 05/18 1933 98 Trach Mask 30% 05/18 1600 97.7 102 22 138/80 99 Trach Mask 30% 05/18 1600 99 Trach Mask 30% Intake & Output 05/19 1600 05/19 0800 05/19 0000 Intake Total 1105.3 1247.4 Output Total 1450 1525 Balance -344.7 -277.6 Intake, IV 164.5 164.2 Intake, Lipid 138.2 149.6 Intake, Oral 0 0 Intake, Other 30 100 Intake, 772.6 833.6 TPN/PPN Output, 625 975 Drainage Output, 350 250 Gastric Drainage Output, Stool 250 50 Output, Urine 225 250 Patient 282 lb Weight Impression/Plan Impression/Plan Impression/Plan: General Appearance: sedated, on mechanical ventilation, not responsive Head: atraumatic Neck: supple, trach in place, minimal blood around trach site but no lidia bleeding Respiratory: no respiratory distress, clear anteriorly, lungs expand symmetrically, trachea midline Cardiovascular: regular rate/rhythm, tachycardia, S1 and S2 heard Abdomen: CONNIE drains in place, NG tube has no bloody fluid drainage Extremities: warm and dry Skin: no cyanosis or edema Impression/Plan: 1. 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 2. Respiratory failure s/p tracheostomy placement. No evidence of hemoptysis. 3. Acute bleeding with anemia, likely secondary to NG tube trauma. This appears to have stabilized with no active bleeding 4. Ongoing encephalopathy - hepatic? metabolic? Warnicke Korsakoff? The patient has had multiple studies for evaluation including an EEG and CT scan of the brain. He continues to receive lactulose for presumed hepatic encephalopathy. He received high-dose thiamine. He remains on 0.5 mg of Ativan per hour for severe agitation. 5. Fever, cultures negative, on meropenem. 6. 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 7. Severe malnutrition - on TPN. 8. ON off vomiting now ng clamped and ko feeding tube needs to be placed on a semiurgent basis 9. Pancreatitis REC * Hold lipids and check triglycerides and daily lfts for now * Haldol if qtc is normal * Ask GI about promotility agent like erythromycin if qtc is ok (metoclopamide not an option due to prolonged qtc * Trach mask * Prn lorazepam and fentanyl * Keep mg more than 1.9 * Can give one mg iv today * Check lipase in am * Monitor cbc * Continue DVT and GI prophylaxis. * Skin care protocol to continue. * Continue all supportive care. * Ask IR for ko feeding tube today or in am * Cont TPN for now without lipids * Check labs for tpn PT still critically ill tts 40 mins
[2016-05-19 16:00] VITALS: BP 160/82
[2016-05-20] VITALS: BP 138/68
[2016-05-20 04:57] LABS: ABSOLUTE BASOPHIL COUNT 0 /CUMM (0.0-0.2); ABSOLUTE EOSINOPHIL COUNT 0.3 /CUMM (0.0-0.7); ABSOLUTE GRANULOCYTE CT 8.6 /CUMM (1.4-6.5); BASOPHIL % 0.4 % (0.0-2.0); EOSINOPHIL % 2.7 % (0-5); GRANULOCYTE % 78.9 % (42.2-75.2); HEMATOCRIT 29.3 % (42-52); MEAN CORPUSCULAR HGB 30.9 PG (27.0-31.0); MEAN CORPUSCULAR HGB CONC 33.4 G/DL (33.0-37.0); MEAN CORPUSCULAR VOLUME 92.7 FL (80.0-94.0); MEAN PLATELET VOLUME 9.9 FL (7.4-10.4); PLATELET COUNT 198 /CUMM (130-400); RBC DISTRIBUTION WIDTH 15.5 % (11.5-14.5); RED BLOOD CELL CT 3.17 /CUMM (4.70-6.10); WHITE BLOOD CELL COUNT 10.9 /CUMM (4.8-10.8)
--- NOTE | 2016-05-20 05:48 | PN- Student ---
Subjective Subjective: No acute events overnight. Patient alert and able to follow commands. Patient can nod to questions. Dobhoff tube removed Thursday due to episode of emesis. Currently patient is breathing on room air as trach not connected to ventilator. Objective Objective: Temp: 98.1, HR: 92, RR: 14, BP: 138/68, O2: 98% NGT: last shift, 40mL. Whitish fluid JP1: 5mL, JP2: 100mL, CONNIE 3: 450mL General: Awake, alert. Follows simple commands Cardiac: RRR, s1s2 Pulmonary: CTA. Trach not connected to ventilator. Abdomen: Soft, distended. Mild erythema and irritation noted around all drain sites. [place] are intact on all drain sites. CONNIE's continue to collect serous/ bilious drainage. #1 CONNIE drain continue to drain green fluid. Extremities: Motor and sensory intact in all extremites. Skin warm and well perfused, bilateral calves soft and non-tender. Distal pulses 1+. No significant lower extremity edema. Results Results: Laboratory Tests 05/20/16 0420: Anion Gap 7, Estimated GFR > 60, Glucose 146 H, Calcium 8.8, Phosphorus 4.3, Magnesium 2.0, Total Bilirubin 1.4 H, Direct Bilirubin 0.6 H, AST 80 H, ALT 44, Alkaline Phosphatase 103, Total Protein 5.5 L, Albumin 2.2 L, Lipase 1765 H, CBC w Diff NO MAN DIFF REQ, RBC 3.17 L, MCV 92.7, MCH 30.9, RDW 15.5 H, MPV 9.9, Gran % 78.9 H, Lymphocytes % 8.9 L, Monocytes % 9.1, Eosinophils % 2.7, Basophils % 0.4, Absolute Granulocytes 8.6 H, Absolute Lymphocytes 1.0 L, Absolute Monocytes 1.0 H, Absolute Eosinophils 0.3, Absolute Basophils 0, PUBS MCHC 33.4 05/19/16 0408: Anion Gap 6, Estimated GFR > 60, Glucose 142 H, Calcium 8.3 L, Phosphorus 4.5, Magnesium 1.9, Total Bilirubin 1.4 H, Direct Bilirubin 0.7 H, AST 89 H, ALT 42, Alkaline Phosphatase 110, Total Protein 5.5 L, Albumin 2.3 L, Triglycerides 131, Lipase 1796 H, CBC w Diff NO MAN DIFF REQ, RBC 3.28 L, MCV 92.7, MCH 31.4 H, RDW 15.6 H, MPV 10.4, Gran % 80.8 H, Lymphocytes % 7.9 L, Monocytes % 8.4, Eosinophils % 2.6, Basophils % 0.3, Absolute Granulocytes 9.9 H, Absolute Lymphocytes 1.0 L, Absolute Monocytes 1.0 H, Absolute Eosinophils 0.3, Absolute Basophils 0, PUBS MCHC 33.8 05/18/16 2135: pH 7.48 H, pCO2 32 L, pO2 83, HCO3 24, ABG O2 Sat (Measured) 96.0, P-50 (Temp Corrected) Y, Carboxyhemoglobin 0.3 L, O2 Concentration % 30%, Temperature 97.1 , O2 Delivery Method TM, Phlebotomy Draw Site RIGHT RADIAL 05/18/16 0400: Anion Gap 6, Estimated GFR > 60, Glucose 173 H, Calcium 8.5, Phosphorus 3.6, Magnesium 2.0, Total Bilirubin 1.5 H, AST 65 H, ALT 39, Albumin 2.2 L, Lipase 1481 H, CBC w Diff NO MAN DIFF REQ, RBC 3.23 L, MCV 92.5, MCH 31.3 H, RDW 15.9 H, MPV 10.0, Gran % 82.9 H, Lymphocytes % 8.2 L, Monocytes % 7.2, Eosinophils % 1.3, Basophils % 0.4, Absolute Granulocytes 9.8 H, Absolute Lymphocytes 1.0 L, Absolute Monocytes 0.9 H, Absolute Eosinophils 0.2, Absolute Basophils 0.1, PUBS MCHC 33.8 05/17/16 1800: CBC w Diff Cancelled, WBC Cancelled, RBC Cancelled, Hgb Cancelled, Hct Cancelled , MCV Cancelled, MCH Cancelled, RDW Cancelled, Plt Count Cancelled, MPV Cancelled, PUBS MCHC Cancelled 05/17/16 0834: Troponin I < 0.01 Assessment/Plan Assessment: 51-year-old male status post Clint patch repair of perforated ulcer/status post placement of tracheostomy due to respiratory failure. Currently he is afebrile but remains critically ill. KO feeding tube was discontinued over the weekend due to emesis episode. - Plan for IR to re-place KO feeding tube. May use NGT for tube feeds until feeding tube in place - Continue TPN for now - Continue primary management per medical/icu team - Keep CONNIE to suction for now - Consider promotility agent - Continue Meropenem per ID - Will consider staple removal over the next few days
[2016-05-20 08:00] VITALS: BP 138/70
--- NOTE | 2016-05-20 08:17 | PN- Resident CRCU ---
Subjective HPI/CRCU Issues: Patient seen and examined. He is seen lying flat in bed maintained in bilateral upper extremity restraints and multiple other lines. He is resting comfortably and appears to be in no acute distress. He is minimally arousable to verbal/ tactile stimulation and follows simple commands. At his bedside is his sister whom is up-to-date of his clinical condition and has no questions at this time. Review of systems is unobtainable. No overnight events reported. Objective Vital Signs & I&O Last 8 Hrs of Vitals and I&O: Vitals: - Temperature: 98.1 - Heart Rate: 78-92 - Respiratory Rate: 14 - Systolic Blood pressure: 127-165 - Diastolic Blood pressure: 57-90 - Oxygen Saturation: 94-98% via tracheostomy on 28% FiO2 Exam General Appearance: well developed/nourished, no apparent distress, awake, comfortable, obese Other Physical Findings: General -well-developed, obese male in no acute distress maintained in bilateral upper extremity soft restraints HEENT - NCAT, PERRL, EOMI, anicteric sclera Cardio - S1, S2 w/o murmurs/gallops/rubs Resp - CTA bilaterally w/o wheezing/rhochi/crackles, tracheostomy in place GI - soft, Non-tender, non-distended abdomen, Bowel sounds present, rectal tube in place Neuro - Awake and responsive to verbal/tactile stimuli, CN II - XII grossly intact Weaning Parameters NIF: 39 Minute Volume: 14.0 Resp rate: 23 Vt: 588 Heart Rate: 90 Weaning Schedule Start Time: 0933 Minute Volume: 13 Resp Rate: 25 Vt: 557 Heart Rate: 90 End Time: 1105 Minute Volume: 15 Resp Rate: 20 Vt: 680 Heart Rate: 100 Start Time: 1345 Resp Rate: 24 Heart Rate: 113 Current Medications: Current Medications Sig/Roberto Start time Last Medication Dose Route Stop Time Status Admin Albuterol Sulfate 3 ML EVERY 4 HRS/AWAKE 05/01 2000 AC 05/19 INH 2041 Fat Emulsion 450 ML 05/19 AC Intravenous IV 05/20 185 Fat Emulsion 450 ML 05/18 1900 DC 05/18 Intravenous IV 05/19 185 190 Fentanyl Citrate 25 MCG Q2 PRN 05/17 1200 AC 05/19 IV 2329 Insulin Aspart 0 Q8 05/08 1400 AC 05/20 SC 0504 Lactulose 20 GM BID 05/16 2200 AC 05/19 PO 2142 Lorazepam 1 MG Q8P PRN 05/19 0815 AC 05/19 IV 1017 Lorazepam 1 MG Q6P PRN 05/18 1230 DC IV Meropenem 1 GM IQ8 05/13 0000 AC 05/19 IV 2329 Nystatin 5 ML 4 TIMES/DAY 05/13 1000 AC 05/19 PO 2142 Ondansetron HCl 4 MG Q8P PRN 04/22 0600 AC IV Pantoprazole Sodium 40 MG Q5H 05/15 0415 AC 05/20 Sodium Chloride 100 ML IV 0358 Potassium Chloride 20 MEQ Q1H 05/19 0845 DC 05/19 IV 05/19 0946 1054 Total Parenteral 1 UNIT 1900 05/19 1900 AC 05/19 Nutrition IV 05/20 185 203 Total Parenteral 1 UNIT 1900 05/18 1900 DC 05/18 Nutrition IV 05/19 185 1905 Impression/Plan Impression/Problem List Impression: Patient appears to be doing well this morning. Interventional radiology is to be contacted today in regards to replacing the KO tube. TPN is continuing, with lipids held for another 24 hours for a persistently elevated lipase. Leukocytosis is improving today, meropenem is discontinued today. CONNIE lines and surgical annie are potentially to be removed at surgery team's discretion. PT evaluation to occur tomorrow to establish baseline function. Swallow evaluation to occur in the AM. Problem list: -Duodenal ulcer perforation status post surgical repair -Possible peritonitis, on meropenem -Sepsis, now resolved -Delirium -History of alcohol abuse Gastrointestinal: Patient admitted for perforated duodenal ulcer complicated with peritonitis. Currently status post status post surgical repair. Surgical sites continue to drain a clear liquid, however are without any surrounding erythema or induration. These are to be started this evening. Tube feeds held. -KO tube removed, replacement pending -NG tube, now clamped -Nothing by mouth -TPN nutrition -Protonix drip -Lactulose 20 g NG a day -Daily LFTs, lipase Infectious disease: Patient had intermittent spikes in temperature for which meropenem was prescribed for a total of 23 days in 3 different intervals. Meropenem was discontinued on 05/20/16 as patient had improved leukocytosis and remained afebrile for some time now any obvious sign of infection. -Meropenem discontinued -Infectious disease consult following Respiratory: -TRC neb treatments -Supplemental oxygen via tracheostomy Cardiovascular: History of hypertension and hyperlipidemia, currently stable. Patient has had a prolonged QTC on EKG monitoring. -Telemetry cardiac monitoring Endocrine: Continue to monitor Accu-Cheks 3 times a day before meals/at bedtime. -NovoLog sliding scale insulin Hematology: Stable hemoglobin and hematocrit. Patient developed a small upper GI bleed thought to be secondary to nasogastric tube suction. Now resolved. -Continue to monitor vitals closely Diet-nothing by mouth, continue TPN nutrition as above DVT prophylaxis-subcutaneous heparin CODE STATUS-full code Problem List: 1. Peritonitis 2. Perforation bowel Pain Ratin Tomorrow's Labs & Rationales: Complete blood count ICU bundle Lipase Plan DVT/Prophylaxis: mechanical Code Status: Full Code Code Status: Full Code
--- NOTE | 2016-05-20 09:40 | PN- CRCU ---
Subjective HPI/Critical Care Issues: The patient is awake and remains off sedation. he remains off mechanical ventilation. The patient has had elevated residuals and has not been able to tolerate tube feeds. He remains afebrile, on meropenem. There were no overnight events reported. Objective Current Medications: Current Medications Sig/Roberto Start time Last Medication Dose Route Stop Time Status Admin Albuterol Sulfate 3 ML EVERY 4 HRS/AWAKE 05/01 2000 AC 05/20 INH 0840 Fat Emulsion 450 ML 1900 05/20 1900 AC Intravenous IV 05/21 1859 Fat Emulsion 450 ML 1900 05/19 1900 AC Intravenous IV 05/20 1859 Fat Emulsion 450 ML 1900 05/18 1900 DC 05/18 Intravenous IV 05/19 185 1905 Fentanyl Citrate 25 MCG Q2 PRN 05/17 1200 AC 05/19 IV 2329 Insulin Aspart 0 Q8 05/08 1400 AC 05/20 SC 0504 Lactulose 20 GM BID 05/16 2200 AC 05/19 PO 2142 Lorazepam 1 MG Q8P PRN 05/19 0815 AC 05/19 IV 1017 Meropenem 1 GM IQ8 05/13 0000 AC 05/19 IV 2329 Nystatin 5 ML 4 TIMES/DAY 05/13 1000 AC 05/19 PO 2142 Ondansetron HCl 4 MG Q8P PRN 04/22 0600 AC IV Pantoprazole Sodium 40 MG Q5H 05/15 0415 AC 05/20 Sodium Chloride 100 ML IV 0358 Potassium Chloride 20 MEQ Q1H 05/19 0845 DC 05/19 IV 05/19 0946 1054 Total Parenteral 1 UNIT 1900 05/20 190 AC Nutrition IV 05/21 185 Total Parenteral 1 UNIT 1900 05/19 1900 AC 05/19 Nutrition IV 05/20 1859 2032 Total Parenteral 1 UNIT 1900 05/18 1900 DC 05/18 Nutrition IV 05/19 185 1905 Vital Signs & I&O Last 24 Hrs of Vitals and I&O: Vital Signs Date Time Temp Pulse Resp B/P Pulse O2 O2 Flow FiO2 Ox Delivery Rate 05/20 0800 98.5 68 12 138/70 97 Trach Mask 28% 05/20 0800 98 Trach Mask 28% 05/20 0444 99 Trach Mask 28% 05/20 0400 97 Trach Mask 28% 05/20 0048 99 Trach Mask 28% 05/20 0000 98.1 92 14 138/68 98 Trach Mask 28% 05/20 0000 98 Trach Mask 28% 05/19 2000 97 Trach Mask 28% 05/19 1633 98 Trach Mask 30% 05/19 1600 98 Trach Mask 30% 05/19 1600 97.0 96 16 160/82 97 Trach Mask 30% 05/19 1200 98 Trach Mask 30% 05/19 0923 99 Trach Mask 30% Intake & Output 05/20 1600 05/20 0800 05/20 0000 Intake Total 863 1216 Output Total 1245 920 Balance -382 296 Intake, IV 163 1146 Intake, Oral 0 0 Intake, Other 70 Intake, 700 TPN/PPN Output, 575 555 Drainage Output, 240 40 Gastric Drainage Output, Stool 100 100 Output, Urine 330 225 Patient 260 lb Weight Exam General Appearance: awake, comfortable Head: atraumatic Neck: supple, trach in place, no bleeding Respiratory: no respiratory distress, clear anteriorly, lungs expand symmetrically, trachea midline Cardiovascular: regular rate/rhythm, tachycardia, S1 and S2 heard Abdomen: CONNIE drains in place, NG tube has no bloody fluid drainage Extremities: warm and dry Skin: no cyanosis or edema Impression/Plan Impression/Plan Impression/Plan: 1. 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 2. Respiratory failure s/p tracheostomy placement. No evidence of hemoptysis. 3. Acute bleeding with anemia, likely secondary to NG tube trauma. This appears to have stabilized today. 4. Encephalopathy - improving. 5. Fever, cultures negative, on meropenem. 6. 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 7. Severe malnutrition - on TPN. Tube feed on hold due to high residuals. 8. Elevated lipase, secondary to lipids. Recommendations: * Await repeat placement of Keofeed. * Discontinue rectal tube and aaron catheter. * Continue meropenem as per ID. * Continue TPN. * Continue DVT and GI prophylaxis. * Skin care protocol to continue. * PT and OT consults today. * Continue all supportive care. * Will need to discuss management of drains with surgery. * Follow up HIT antibody results. * Restart SQ heparin for DVT prophylaxis. TTS 60 Code Status: Full Code
--- NOTE | 2016-05-20 10:09 | PN- Infect Dx ---
Subjective Subjective: Afebrile. He offers no complaints. He has done well off the ventilator and off sedation. Objective Last 24 Hrs of Vital Signs/I&O Vital Signs Date Time Temp Pulse Resp B/P Pulse O2 O2 Flow FiO2 Ox Delivery Rate 05/20 0800 98.5 68 12 138/70 97 Trach Mask 28% 05/20 0800 98 Trach Mask 28% 05/20 0444 99 Trach Mask 28% 05/20 0400 97 Trach Mask 28% 05/20 0048 99 Trach Mask 28% 05/20 0000 98.1 92 14 138/68 98 Trach Mask 28% 05/20 0000 98 Trach Mask 28% 05/19 2000 97 Trach Mask 28% 05/19 1633 98 Trach Mask 30% 05/19 1600 98 Trach Mask 30% 05/19 1600 97.0 96 16 160/82 97 Trach Mask 30% 05/19 1200 98 Trach Mask 30% Intake & Output 05/20 1600 05/20 0800 05/20 0000 Intake Total 863 1216 Output Total 1245 920 Balance -382 296 Intake, IV 163 1146 Intake, Oral 0 0 Intake, Other 70 Intake, 700 TPN/PPN Output, 575 555 Drainage Output, 240 40 Gastric Drainage Output, Stool 100 100 Output, Urine 330 225 Patient 260 lb Weight Physical Exam Other Physical Findings: He is awake and alert in no acute distress on a trach mask Chest Pro-Line in the right upper chest with no inflammation at the site Lungs are clear Heart regular rhythm with no murmur Abdomen is soft, nontender with positive bowel sounds; CONNIE drains remain in place , with no output from drain #1 Extremities no cyanosis, clubbing or edema Ann catheter reinserted Results Last 24 Hours of Lab Results: Laboratory Tests 05/20 0420 Chemistry Sodium (137 - 145 mmol/L) 138 Potassium (3.5 - 5.1 mmol/L) 4.1 Chloride (98 - 107 mmol/L) 103 Carbon Dioxide (22 - 30 mmol/L) 28 Anion Gap (5 - 16) 7 BUN (9 - 20 mg/dL) 22 H Creatinine (0.7 - 1.2 mg/dL) 0.6 L Estimated GFR (>60 ml/min) > 60 Glucose (65 - 99 mg/dL) 146 H Calcium (8.4 - 10.2 mg/dL) 8.8 Phosphorus (2.5 - 4.5 mg/dL) 4.3 Magnesium (1.6 - 2.3 mg/dL) 2.0 Total Bilirubin (0.2 - 1.3 mg/dL) 1.4 H Direct Bilirubin (< 0.4 mg/dL) 0.6 H AST (17 - 59 U/L) 80 H ALT (21 - 72 U/L) 44 Alkaline Phosphatase (< 127 U/L) 103 Total Protein (6.3 - 8.2 g/dL) 5.5 L Albumin (3.5 - 5.0 g/dL) 2.2 L Lipase (23 - 300 U/L) 1765 H Hematology CBC w Diff NO MAN DIFF REQ WBC (4.8 - 10.8 /CUMM) 10.9 H RBC (4.70 - 6.10 /CUMM) 3.17 L Hgb (14.0 - 18.0 G/DL) 9.8 L Hct (42 - 52 %) 29.3 L MCV (80.0 - 94.0 FL) 92.7 MCH (27.0 - 31.0 PG) 30.9 RDW (11.5 - 14.5 %) 15.5 H Plt Count (130 - 400 /CUMM) 198 MPV (7.4 - 10.4 FL) 9.9 Gran % (42.2 - 75.2 %) 78.9 H Lymphocytes % (20.5 - 51.1 %) 8.9 L Monocytes % (1.7 - 9.3 %) 9.1 Eosinophils % (0 - 5 %) 2.7 Basophils % (0.0 - 2.0 %) 0.4 Absolute Granulocytes (1.4 - 6.5 /CUMM) 8.6 H Absolute Lymphocytes (1.2 - 3.4 /CUMM) 1.0 L Absolute Monocytes (0.10 - 0.60 /CUMM) 1.0 H Absolute Eosinophils (0.0 - 0.7 /CUMM) 0.3 Absolute Basophils (0.0 - 0.2 /CUMM) 0 PUBS MCHC (33.0 - 37.0 G/DL) 33.4 Last 24 Hours of Garcia Results: No recent cultures Assessment/Plan Impression: Stable with temperatures remaining normal and with white blood cell count minimally elevated on Meropenem, restarted 8 days ago empirically because of the concern of an ongoing duodenal leak, now 4 weeks status post laparoscopic Clint plication for a perforated duodenal ulcer. His lipase remains elevated, possibly secondary to the TPN/lipids, but he may warrant further evaluation if it continues to increase. Suggestion: 1. Further management regarding his presumed leak and feeding per GI and Surgery 2. Remove Ann catheter 3. Discontinue Meropenem and follow off antibiotics
--- NOTE | 2016-05-20 13:01 | PN- Psychiatry ---
Assessment/Plan Impression: 51-year-old male stage IV cirrhosis secondary to alcohol use and a perforated duodenal ulcer with peritonitis, now status post surgical repair on 04/23. Evaluated lying in bed in critical care unit. Restraints remain in place prior untied. Patient is unable to participate in interview verbally but does respond to some questions by nodding and shaking his head. He does endorse confusion, is unable to answer questions regarding AVH but does not appear internally stimulated at time of interview. He denies SI or HI. Somewhat blunted affect but broader range than previously. He is alert and oriented to self, appears oriented to situation. Per house staff report approximately 2 days ago patient spontaneously became more responsive. He is more confused and the a.m. but mentation appears to be improving. He required 1 dose of 1 mg IV Ativan yesterday morning and has not required it since. Differential diagnosis Delirium due to multiple etiologies, resolving Alcohol use disorder severe Suggestion: 1. Continue CIWA protocol and medicate appropriately. Continue to monitor for rebound signs and symptoms of benzodiazepine withdrawal including increased confusion and agitation. 2. Please continue to avoid benzodiazepines, opioid analgesics, and meds with strong anticholinergic properties as much as possible to prevent further confusion. 3. Please continue the following nonpharmacologic interventions: -Avoid nursing and medical procedures during sleep hours whenever possible - Cluster at night interventions that must be completed as much as possible to minimize sleep disruption - Decrease noise in patient area during sleeping hours - Reduce lighting at night - Ensure patient has any sensory aids close by that he regularly uses Thank you for including psychiatry in this case we'll continue to follow. Nelson Morton APRN, pager [phone]. Subjective Subjective: .
--- NOTE | 2016-05-20 14:53 | NUR ---
PHYSICAL THERAPY- CONSULT RECEIVED, CHART REVIEWED. S/W NSG WHO REPORTS THAT PT APPEARS TO POSSESS A GOOD AMOUNT OF STRENGTH AND IS MOVING WELL IN THE BED, WELL MOTIVATED TO GET OOB. HOWEVER, PT W/ INCREASED LETHARGY AND SOMNOLENCE THROUGHOUT DAY TODAY AND WOULD LIKELY BE UNSAFE TO TRIAL OOB AT THIS TIME. WILL CHECK BACK AND FOLLOW APPROPRIATE IN AM.
[2016-05-20 16:00] VITALS: BP 124/70
--- NOTE | 2016-05-20 16:33 | NUR ---
1615: RECTAL TUBE AND STERLING D/C'D AT THIS TIME PER DR. PANDEY'S REQUEST.
--- NOTE | 2016-05-20 19:20 | NUR ---
PATIENT IS MORE ALERT AND FOLLOWING COMMANDS. OKAY'D TO BE OUT OF RESTRAINTS WHEN FAMILY IS PRESENT. PATIENT IS LESS RESTLESS/ANXIOUS BUT TEARY AT TIMES. GIVEN EMOTIONAL REASSURANCE. USING A LETTER BOARD AND MOUTHING WORDS TO COMMUNICATE. FAMILY VISITING THROUGHOUT THE DAY AND PLEASED WITH PATIENT'S PROGRESS. NSR 70S-80S, BUT UP TO NSR-ST 90S-100S WHEN VISITORS PRESENT. SBP 130S-150S. TM 28% TO #9 [place]. LARGE YELLOW THICK SECRETIONS PRESENT. PATIENT COUGHING AND DEEP BREATHING WELL. TRACH CARE/DRESSING CHANGES DONE FREQUENTLY PER PATIENT/FAMILY. INNER CANNULA CHANGED AT 1330. PASSY-TYRA VALVE ATTEMPTED BY RT BUT NOT TOLERATED WELL. PATIENT COUGHING TOO MUCH. TO RETRY AT A LATER TIME. NGT TO R NARE - LOW WALL SUCTION RETAPED TO NOSE. MODERATE AMOUNTS OF SEROUS FLUID PUTTING OUT. CLAMPING FOR AN HOUR AFTER GIVING PO MEDS (LACTULOSE). SUBQ HEPARIN STARTED AND GIVEN FOR 1400. PATIENT SKIN IS INTACT. 3 CONNIE DRAINS REMAIN TO ABDOMEN W/ DRESSINGS CDI. MIDLINE DRESSING REPLACED AT 1615 WHEN STERLING AND RECTAL TUBE REMOVED.
[2016-05-21] VITALS: BP 140/68
--- NOTE | 2016-05-21 02:13 | NUR ---
2145- PT HAD BBB RHYTHM FOR 17 BEATS, MD JOHNSON MADE AWARE. NO NEW ORDERS. CONVERTED BACK TO NSR 90'S
[2016-05-21 05:45] LABS: ABSOLUTE BASOPHIL COUNT 0 /CUMM (0.0-0.2); ABSOLUTE EOSINOPHIL COUNT 0.3 /CUMM (0.0-0.7); ABSOLUTE GRANULOCYTE CT 7.9 /CUMM (1.4-6.5); ABSOLUTE MONOCYTE COUNT 0.9 /CUMM (0.10-0.60); BASOPHIL % 0 % (0.0-2.0); EOSINOPHIL % 2.7 % (0-5); GRANULOCYTE % 78.5 % (42.2-75.2); HEMATOCRIT 28.5 % (42-52); MEAN CORPUSCULAR HGB 31.3 PG (27.0-31.0); MEAN CORPUSCULAR HGB CONC 33.9 G/DL (33.0-37.0); MEAN CORPUSCULAR VOLUME 92.4 FL (80.0-94.0); MEAN PLATELET VOLUME 9.5 FL (7.4-10.4); PLATELET COUNT 213 /CUMM (130-400); RBC DISTRIBUTION WIDTH 15.8 % (11.5-14.5); RED BLOOD CELL CT 3.08 /CUMM (4.70-6.10); WHITE BLOOD CELL COUNT 10.1 /CUMM (4.8-10.8)
--- NOTE | 2016-05-21 05:51 | PN- Student ---
Subjective Subjective: No acute events overnight. Patient awake, alert and able to follow commands, off sedation. Patient can nod to questions. Dobhoff tube removed Thursday due to episode of emesis. Currently patient is breathing on room air as trach not connected to ventilator. Patient denies any discomfort. Ann and rectal tube both removed last night. Meropenem also discontinued yesterday. Objective Objective: Temp: 99.5, HR: 96, RR: 16, BP: 140/68, O2: 95% RA NGT: last shift, 70mL. No blood. JP1: 0mL, JP2: 250mL, CONNIE 3: 650mL serous fluid Ann removed yesterday General: Awake, alert. Follows simple commands Cardiac: RRR, s1s2 Pulmonary: CTA. Trach not connected to ventilator. Abdomen: Soft, distended. Mild erythema and irritation noted around all drain sites. Barling are intact on all drain sites. CONNIE's continue to collect serous drainage. #1 CONNIE drain has some green fluid in tube but minimal content in bulb. CONNIE#3 continues to drain the most content Extremities: Motor and sensory intact in all extremites. Skin warm and well perfused, bilateral calves soft and non-tender. Distal pulses 1+. No significant lower extremity edema Results Results: Laboratory Tests 05/21/16 0525: Sodium Pending, Potassium Pending, Chloride Pending, Carbon Dioxide Pending, Anion Gap Pending, BUN Pending, Creatinine Pending, Glucose Pending, Calcium Pending, Phosphorus Pending, Magnesium Pending, Total Bilirubin Pending, Direct Bilirubin Pending, AST Pending, ALT Pending, Alkaline Phosphatase Pending, Total Protein Pending, Albumin Pending, Lipase Pending, CBC w Diff Pending, WBC Pending, RBC Pending, Hgb Pending, Hct Pending, MCV Pending, MCH Pending, RDW Pending, Plt Count Pending, MPV Pending, PUBS MCHC Pending 05/20/16 1155: Heparin-induced Plt Ab Pending, Heparin-PF4 AB OD Pending 05/20/16 0420: Anion Gap 7, Estimated GFR > 60, Glucose 146 H, Calcium 8.8, Phosphorus 4.3, Magnesium 2.0, Total Bilirubin 1.4 H, Direct Bilirubin 0.6 H, AST 80 H, ALT 44, Alkaline Phosphatase 103, Total Protein 5.5 L, Albumin 2.2 L, Lipase 1765 H, CBC w Diff NO MAN DIFF REQ, RBC 3.17 L, MCV 92.7, MCH 30.9, RDW 15.5 H, MPV 9.9, Gran % 78.9 H, Lymphocytes % 8.9 L, Monocytes % 9.1, Eosinophils % 2.7, Basophils % 0.4, Absolute Granulocytes 8.6 H, Absolute Lymphocytes 1.0 L, Absolute Monocytes 1.0 H, Absolute Eosinophils 0.3, Absolute Basophils 0, PUBS MCHC 33.4 05/19/16 0408: Anion Gap 6, Estimated GFR > 60, Glucose 142 H, Calcium 8.3 L, Phosphorus 4.5, Magnesium 1.9, Total Bilirubin 1.4 H, Direct Bilirubin 0.7 H, AST 89 H, ALT 42, Alkaline Phosphatase 110, Total Protein 5.5 L, Albumin 2.3 L, Triglycerides 131, Lipase 1796 H, CBC w Diff NO MAN DIFF REQ, RBC 3.28 L, MCV 92.7, MCH 31.4 H, RDW 15.6 H, MPV 10.4, Gran % 80.8 H, Lymphocytes % 7.9 L, Monocytes % 8.4, Eosinophils % 2.6, Basophils % 0.3, Absolute Granulocytes 9.9 H, Absolute Lymphocytes 1.0 L, Absolute Monocytes 1.0 H, Absolute Eosinophils 0.3, Absolute Basophils 0, PUBS MCHC 33.8 05/18/16 2135: pH 7.48 H, pCO2 32 L, pO2 83, HCO3 24, ABG O2 Sat (Measured) 96.0, P-50 (Temp Corrected) Y, Carboxyhemoglobin 0.3 L, O2 Concentration % 30%, Temperature 97.1 , O2 Delivery Method TM, Phlebotomy Draw Site RIGHT RADIAL Assessment/Plan Assessment: 51-year-old male status post Clint patch repair of perforated ulcer/status post placement of tracheostomy due to respiratory failure. Currently he is afebrile and is off Meropenem. KO feeding tube was discontinued over the weekend due to emesis episode, awaiting replacement of tube per IR. Rectal tube and Ann tube removed last night. - Plan for IR to re-place KO feeding tube. May use NGT for tube feeds until feeding tube in place - Continue TPN for now via NGT - Keep CONNIE to suction for now - Consider promotility agent - Meropenem DC'd yesterday per ID - FU with PT, OOB - Consider swallow eval - Will consider staple removal over the next few days - DVT prophylaxis ALPs, heparin - Discuss with Dr. Murillo - Continue primary management per medical/icu team
[2016-05-21 08:00] VITALS: BP 119/69
--- NOTE | 2016-05-21 09:34 | PN- CRCU ---
Subjective HPI/Critical Care Issues: The patient is much more awake and attempting to participate in care. He was not able to tolerate the Passy-Millington valve yesterday. His Ann catheter and rectal tube are out. He remains with history can place, noting he does not have significant secretions. He is afebrile and hemodynamically stable. Current issues to be evaluated today include an elevated lipase at 1914 despite lipids being held. The patient also is in need of a swallowing evaluation, physical therapy and occupational therapy. Objective Current Medications: Current Medications Sig/Roberto Start time Last Medication Dose Route Stop Time Status Admin Albuterol Sulfate 3 ML EVERY 4 HRS/AWAKE 05/01 2000 AC 05/21 INH 0836 Fat Emulsion 450 ML 1900 05/20 1900 AC Intravenous IV 05/21 1859 Fat Emulsion 450 ML 1900 05/19 190 DC Intravenous IV 05/20 185 Fentanyl Citrate 25 MCG Q2 PRN 05/17 1200 AC 05/19 IV 2329 Heparin Sodium 5,000 UNIT Q8 05/20 1400 AC 05/21 (Porcine) SC 0545 Insulin Aspart 0 Q8 05/08 1400 AC 05/21 SC 0545 Lactulose 20 GM BID 05/16 2200 AC 05/20 PO 2218 Lorazepam 1 MG Q8P PRN 05/19 0815 AC 05/19 IV 1017 Meropenem 1 GM IQ8 05/13 0000 DC 05/20 IV 0934 Nystatin 5 ML 4 TIMES/DAY 05/13 1000 DC 05/20 PO 0933 Ondansetron HCl 4 MG Q8P PRN 04/22 0600 AC IV Pantoprazole Sodium 40 MG Q5H 05/15 0415 AC 05/21 Sodium Chloride 100 ML IV 0545 Total Parenteral 1 UNIT 1900 05/20 1900 AC 05/20 Nutrition IV 05/21 Total Parenteral 1 UNIT 1900 05/19 1900 DC 05/19 Nutrition IV 05/20 Vital Signs & I&O Last 24 Hrs of Vitals and I&O: Vital Signs Date Time Temp Pulse Resp B/P Pulse O2 O2 Flow FiO2 Ox Delivery Rate 05/21 0845 98 Trach Mask 28% 05/21 0400 97 Trach Mask 28% 05/21 0233 98 Trach Mask 28% 05/21 0000 99.5 96 16 140/68 95 Trach Mask 28% 05/21 0000 95 Trach Mask 28% 12/27 2000 97 Trach Mask 28% 05/20 1656 97 Trach Mask 28% 05/20 1600 99 Trach Mask 28% 05/20 1600 99.0 94 14 124/70 94 Venti Mask 28% 05/20 1221 98 Trach Mask 28% 05/20 1200 99 Venti Mask 28% Intake & Output 05/21 1600 05/21 0800 05/21 0000 Intake Total 930 1158 Output Total 690 1105 Balance 240 53 Intake, IV 149 175 Intake, Oral 0 0 Intake, Other 70 Intake, 781 913 TPN/PPN Number 1 1 Bowel Movements Output, 350 900 Drainage Output, 340 20 Gastric Drainage Output, Stool 100 Output, Urine 85 Patient 270 lb Weight Exam General Appearance: awake, comfortable Head: atraumatic Neck: supple, trach in place, no bleeding Respiratory: no respiratory distress, clear anteriorly, lungs expand symmetrically, trachea midline Cardiovascular: regular rate/rhythm, tachycardia, S1 and S2 heard Abdomen: CONNIE drains in place, NG tube has clear drainage Extremities: warm and dry Skin: no cyanosis or edema Results Last 24 Hrs of Lab Results: Laboratory Tests 05/21/16 0525: Anion Gap 7, Estimated GFR > 60, Glucose 153 H, Calcium 8.8, Phosphorus 4.7 H, Magnesium 1.9, Total Bilirubin 1.5 H, Direct Bilirubin 0.6 H, AST 97 H, ALT 55, Alkaline Phosphatase 107, Total Protein 5.4 L, Albumin 2.2 L, Lipase 1914 H, CBC w Diff NO MAN DIFF REQ, RBC 3.08 L, MCV 92.4, MCH 31.3 H, RDW 15.8 H, MPV 9.5, Gran % 78.5 H, Lymphocytes % 9.8 L, Monocytes % 9.0, Eosinophils % 2.7, Basophils % 0 L, Absolute Granulocytes 7.9 H, Absolute Lymphocytes 1.0 L , Absolute Monocytes 0.9 H, Absolute Eosinophils 0.3, Absolute Basophils 0, PUBS MCHC 33.9 05/20/16 1155: Heparin-induced Plt Ab Pending, Heparin-PF4 AB OD Pending Impression/Plan Impression/Plan Impression/Plan: 1. 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 2. Respiratory failure s/p tracheostomy placement. 3. Resolved acute anemia with bleeding secondary to NG tube trauma. 4. Encephalopathy - significantly improved overall. 5. Fever, cultures negative, now being observed off antibiotics. 6. 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 7. Severe malnutrition - on TPN. A swallowing evaluation will be checked today as well as an attempt to elemental feeding. 8. Elevated lipase, secondary to lipids? No improvement and lipase following holding the medication for 2 days. Recommendations: * Check a swallowing evaluation today. * Elemental tube feeds to be started today. * We will check with surgery if a KO feed is absolutely necessary. * Monitor off antibiotics for now, as per ID. * Continue TPN. * Skin care protocol to continue. * PT and OT consults requested, out of bed to chair daily. * Continue all supportive care. * Will need to discuss management of drains with surgery. * SQ heparin for DVT prophylaxis. TTS 60 Code Status: Full Code
--- NOTE | 2016-05-21 10:44 | PN- Infect Dx ---
Subjective Subjective: Afebrile without complaints Objective Last 24 Hrs of Vital Signs/I&O Vital Signs Date Time Temp Pulse Resp B/P Pulse O2 O2 Flow FiO2 Ox Delivery Rate 05/21 0845 98 Trach Mask 28% 05/21 0400 97 Trach Mask 28% 05/21 0233 98 Trach Mask 28% 05/21 0000 99.5 96 16 140/68 95 Trach Mask 28% 05/21 0000 95 Trach Mask 28% 05/20 2000 97 Trach Mask 28% 05/20 1656 97 Trach Mask 28% 05/20 1600 99 Trach Mask 28% 05/20 1600 99.0 94 14 124/70 94 Venti Mask 28% 05/20 1221 98 Trach Mask 28% 05/20 1200 99 Venti Mask 28% Intake & Output 05/21 1600 05/21 0800 05/21 0000 Intake Total 930 1158 Output Total 690 1105 Balance 240 53 Intake, IV 149 175 Intake, Oral 0 0 Intake, Other 70 Intake, 781 913 TPN/PPN Number 1 1 Bowel Movements Output, 350 900 Drainage Output, 340 20 Gastric Drainage Output, Stool 100 Output, Urine 85 Patient 270 lb Weight Physical Exam Other Physical Findings: He is awake and alert, sitting up in the chair in no acute distress Chest Pro-Line in the right upper chest with no inflammation at the site Lungs are clear Heart regular rhythm with no murmur Abdomen is soft, nontender with positive bowel sounds; CONNIE drains remain in place Extremities trace edema both lower extremities Results Last 24 Hours of Lab Results: Laboratory Tests 05/21 05/20 0525 1155 Chemistry Sodium (137 - 145 mmol/L) 136 L Potassium (3.5 - 5.1 mmol/L) 4.1 Chloride (98 - 107 mmol/L) 101 Carbon Dioxide (22 - 30 mmol/L) 28 Anion Gap (5 - 16) 7 BUN (9 - 20 mg/dL) 25 H Creatinine (0.7 - 1.2 mg/dL) 0.6 L Estimated GFR (>60 ml/min) > 60 Glucose (65 - 99 mg/dL) 153 H Calcium (8.4 - 10.2 mg/dL) 8.8 Phosphorus (2.5 - 4.5 mg/dL) 4.7 H Magnesium (1.6 - 2.3 mg/dL) 1.9 Total Bilirubin (0.2 - 1.3 mg/dL) 1.5 H Direct Bilirubin (< 0.4 mg/dL) 0.6 H AST (17 - 59 U/L) 97 H ALT (21 - 72 U/L) 55 Alkaline Phosphatase (< 127 U/L) 107 Total Protein (6.3 - 8.2 g/dL) 5.4 L Albumin (3.5 - 5.0 g/dL) 2.2 L Lipase (23 - 300 U/L) 1914 H Hematology CBC w Diff NO MAN DIFF REQ WBC (4.8 - 10.8 /CUMM) 10.1 RBC (4.70 - 6.10 /CUMM) 3.08 L Hgb (14.0 - 18.0 G/DL) 9.7 L Hct (42 - 52 %) 28.5 L MCV (80.0 - 94.0 FL) 92.4 MCH (27.0 - 31.0 PG) 31.3 H RDW (11.5 - 14.5 %) 15.8 H Plt Count (130 - 400 /CUMM) 213 MPV (7.4 - 10.4 FL) 9.5 Gran % (42.2 - 75.2 %) 78.5 H Lymphocytes % (20.5 - 51.1 %) 9.8 L Monocytes % (1.7 - 9.3 %) 9.0 Eosinophils % (0 - 5 %) 2.7 Basophils % (0.0 - 2.0 %) 0 L Absolute Granulocytes (1.4 - 6.5 /CUMM) 7.9 H Absolute Lymphocytes (1.2 - 3.4 /CUMM) 1.0 L Absolute Monocytes (0.10 - 0.60 /CUMM) 0.9 H Absolute Eosinophils (0.0 - 0.7 /CUMM) 0.3 Absolute Basophils (0.0 - 0.2 /CUMM) 0 PUBS MCHC (33.0 - 37.0 G/DL) 33.9 Immunology Heparin-induced Plt Ab Pending Heparin-PF4 AB OD Pending Last 24 Hours of Garcia Results: No recent cultures Assessment/Plan Impression: Stable with temperatures and white blood cell count remaining normal now off antibiotics after 8 days of Meropenem, which was restarted empirically because of a recurrent fever in the setting of a presumed duodenal leak following a perforated duodenal ulcer, now 29 days status post laparoscopic Clint plication. His lipase continues to increase, possibly secondary to the lipids with the TPN, though these have apparently been on hold for 2 days. Suggestion: 1. Further management regarding his presumed leak and feeding per GI and Surgery 2. Consider repeat CT of the abdomen if lipase continues to increase 3. Continue to follow off antibiotics
[2016-05-21 16:00] VITALS: BP 138/80
--- NOTE | 2016-05-21 16:05 | NUR ---
SHIFT NOTE RESUMED PT CARE AT 0730. PT A/O, USING PESSY MUER VALVE FOR SPEAKING. MOVING ALL EXTREMETIES EQUALLY. CMS X 4. NSR ON THE MONITOR 80-100'S. BP 110-140'S ON 28% FIO2 VIA TRACH MASK, SATS 98+. ABLE TO TOLERATE BEING OFF TRACH MASK FOR SMALL PERIODS. LUNGS CLR. PT ABLE TO COUGH UP DUCKWORTH SECRETIONS. NGT TO R NARES REMAINS INTACT. TF STARTED AT 10ML/HR. ABDOMEN SOFT, DISTENDED. +BS, INCONT OF LOOSE GREEN/BROWN STOOL AND PATRICK URINE X 2. 3 JPS INTACT TO ABDOMEN WITH SERROUS OUTPUT. SWALLOE EVAL ATTEMPTED. PO INTAKE DEFFERED. SPEECH WILL CONTINUE TO FOLLOW. RCW PROLINE PATENT, C/D/I WITH PROTONIX AND TPN INFUSING. PT GOT OOB W PT, ASSISST OF 2 AND RW TO BSC. TOELRATED WELL.
[2016-05-21 16:07] LABS: HEPARIN INDUCED PLATELET AB WEAK POSITIVE (NEGATIVE)
--- NOTE | 2016-05-21 16:42 | PN- Resident CRCU ---
Subjective HPI/CRCU Issues: Patient seen and examined. He is seen sitting upright in his chair at bedside with multiple family members present. At present patient appears awake and alert and in no acute distress. When asked if he was in any pain or had any complaints he says no. Additionally he denies any headache, fever, chills, chest pain, shortness of breath, nausea, vomiting, diarrhea. No overnight events reported. Objective Vital Signs & I&O Last 8 Hrs of Vitals and I&O: Vitals: - Temperature: 98.6-99.5 - Heart Rate: 70-96 - Respiratory Rate: 13-16 - Systolic Blood pressure: 119-140 - Diastolic Blood pressure: 68-69 - Oxygen Saturation: 95-100% via tracheostomy Exam General Appearance: well developed/nourished, no apparent distress, alert, awake , comfortable, obese Weaning Parameters NIF: 39 Minute Volume: 14.0 Resp rate: 23 Vt: 588 Heart Rate: 90 Weaning Schedule Start Time: 0933 Minute Volume: 13 Resp Rate: 25 Vt: 557 Heart Rate: 90 End Time: 1105 Minute Volume: 15 Resp Rate: 20 Vt: 680 Heart Rate: 100 Start Time: 1345 Resp Rate: 24 Heart Rate: 113 Current Medications: Current Medications Sig/Roberto Start time Last Medication Dose Route Stop Time Status Admin Albuterol Sulfate 3 ML EVERY 4 HRS/AWAKE 05/01 2000 AC 05/21 INH 1627 Fat Emulsion 450 ML 1900 05/21 1900 AC Intravenous IV 05/22 1859 Fat Emulsion 450 ML 1900 05/20 1900 AC Intravenous IV 05/21 1859 Fat Emulsion 450 ML 0 05/19 1900 DC Intravenous IV 05/20 1859 Fentanyl Citrate 25 MCG Q2 PRN 05/17 1200 AC 05/19 IV 2329 Heparin Sodium 5,000 UNIT Q8 05/20 1400 AC 05/21 (Porcine) SC 1431 Insulin Aspart 0 Q8 05/08 1400 AC 05/21 SC 1431 Lactulose 20 GM BID 05/16 2200 AC 05/21 PO 1031 Lorazepam 1 MG Q8P PRN 05/19 0815 AC 05/19 IV 1017 Ondansetron HCl 4 MG Q8P PRN 04/22 0600 IV Pantoprazole Sodium 40 MG Q5H 05/15 0415 05/21 Sodium Chloride 100 ML IV 1031 Total Parenteral 1 UNIT 1900 05/21 1900 Nutrition IV 05/22 1859 Total Parenteral 1 UNIT 1900 05/20 1900 AC 05/20 Nutrition IV 05/21 Total Parenteral 1 UNIT 1900 05/19 1900 DC 05/19 Nutrition IV 05/20 Impression/Plan Impression/Problem List Impression: Patient continues to do well. His mental status has been improving day over day. Patient to begin tube feeds today via NG tube. Swallow evaluation demonstrated that patient had a persistent cough with each sip of water but otherwise seemed to demonstrate adequate function with speech, he will continue to be followed by speech therapy. PT evaluation today commented that the patient was assisted to and would most likely require discharge to short-term rehabilitation when medically stable. Lipase remains elevated today. TPN and lipids are running with the tube feeds. Problem list: -Duodenal ulcer perforation status post surgical repair -Possible peritonitis, on meropenem -Sepsis, now resolved -Delirium -History of alcohol abuse Gastrointestinal: Patient admitted for perforated duodenal ulcer complicated with peritonitis. Currently status post status post surgical repair. Surgical sites continue to drain a clear liquid, however are without any surrounding erythema or induration. These are to be started this evening. Tube feeds held. -NG tube, tube feeds running -Nothing by mouth -TPN nutrition -Protonix drip -Lactulose 20 g NG a day -Daily LFTs, lipase Infectious disease: Patient had intermittent spikes in temperature for which meropenem was prescribed for a total of 23 days in 3 different intervals. Meropenem was discontinued on 05/20/16 as patient had improved leukocytosis and remained afebrile for some time now any obvious sign of infection. -Meropenem discontinued -Infectious disease consult following Respiratory: -TRC neb treatments -Supplemental oxygen via tracheostomy Cardiovascular: History of hypertension and hyperlipidemia, currently stable. Patient has had a prolonged QTC on EKG monitoring. -Telemetry cardiac monitoring Endocrine: Continue to monitor Accu-Cheks 3 times a day before meals/at bedtime. -NovoLog sliding scale insulin Hematology: Stable hemoglobin and hematocrit. Patient developed a small upper GI bleed thought to be secondary to nasogastric tube suction. Now resolved. -Continue to monitor vitals closely Diet-nothing by mouth, continue TPN nutrition as above DVT prophylaxis-subcutaneous heparin CODE STATUS-full code Problem List: 1. Peritonitis 2. Perforation bowel Pain Ratin Tomorrow's Labs & Rationales: Complete blood count ICU bundle Hepatic function panel Lipase Plan DVT/Prophylaxis: mechanical Code Status: Full Code
--- NOTE | 2016-05-21 16:50 | NUR ---
FAMILY CALLED TO ALERT US THAT PATIENT SNEEZED AND HIS NG TUBE CAME OUT. ON EXAMINATION PATIENT IN NO DISTRESS WITH NG TUBE ON CHEST. TUBE FEEDING PLACED ON HOLD, NOSE CLEARED AND TAPE REMOVED. DR PAEZ NOTIFIED.
--- NOTE | 2016-05-21 18:39 | RADIOLOGY REPORT ---
EXAMINATION: XR PORTABLE CHEST CLINICAL INFORMATION: 51-year-old man post nasogastric tube placement. COMPARISON: 05/18/2016 radiographs TECHNIQUE: Portable view of the chest was obtained. FINDINGS: A nasogastric tube is seen with its tip projecting over the gastric fundus. A right IJ central venous catheter is noted with its tip projecting over the distal SVC. The tip of an endotracheal tube is about 5.5 cm from the ching. Lung volumes are low, although visualized portions of the lungs are well aerated. IMPRESSION: Satisfactory radiographic appearance of a nasogastric tube.
[2016-05-21 23:31] VITALS: BP 142/82
--- NOTE | 2016-05-21 23:40 | NUR ---
PT FOUND TO BE DRINKING WATER FROM MOUTH SWAB CUP. TOLD PT THAT HE WAS NOT ALLOWED TO DRINK WATER DUE TO FAILING THE SWALLOW EVAL, PT BECAME AGITATED. PT ALSO FOUND ATTEMPTING TO GET OOB WITHOUT ASSISTANCE, ALSO TOLD PT THIS WAS NOT SAFE AND PLACED PT BACK INTO BED.
--- NOTE | 2016-05-22 05:55 | PN- Student ---
Subjective Subjective: Patient awake, alert, now able to speak. States he can speak better when his trach tube is cleared from mucous. States he has been coughing a little since yesterday and coughed up some brown sputum. He reports that he has no significant discomfort or pain anywhere, and that he wishes to have a glass of water more than anything else. According to assessment notes, he failed swallow evaluation yesterday but was seen drinking water last night. His NGT also came out yesterday after he sneezed, but it was subsequently replaced. He does not currently have a aaron or rectal tube, off antibiotics, sedation. He denies any headache, chest pain, shortness of breath, nausea, vomiting. Objective Objective: Temp: 98.0, HR: 97, RR: 16, BP: 142/82, O2: 97% trach mask, 28% O2 flow rate NGT: last shift, 340mL. No blood. JP1: 0mL green fluid in tube, JP2: 100mL, CONNIE 3: 100mL serous fluid General: Awake, alert, oriented. Resting in bed Cardiac: RRR, s1s2 Pulmonary: diminished breath sounds at bases Abdomen: Soft, distended, non-tender. Mild erythema and irritation noted around all drain sites. Lindsey are intact on all drain sites. CONNIE's continue to collect serous drainage. #1 CONNIE drain has some green fluid in tube. Extremities: Motor and sensory intact in all extremites. Skin warm and well perfused, bilateral calves soft. Some tenderness to palpation of distal right calf. Distal pulses 1+. No significant lower extremity edema Assessment/Plan Assessment: 51-year-old male status post Clint patch repair of perforated ulcer/status post placement of tracheostomy due to respiratory failure. His NGT was replaced yesterday after it came out after a sneeze. He also failed his swallow eval yesterday. He is currently off antibiotics and sedation. - Keep JPs to suction, continue NGT - Consider promotility agent - FU with PT, OOB - Failed swallow eval yesterday. To repeat today - Will consider staple removal over the next few days - Trend labs. Lipids in TPN has been held due to climbing lipase. - DVT prophylaxis ALPs, heparin - Discuss with Dr. Murillo - Continue primary management per medical/icu team
[2016-05-22 06:04] LABS: ABSOLUTE BASOPHIL COUNT 0 /CUMM (0.0-0.2); ABSOLUTE EOSINOPHIL COUNT 0.2 /CUMM (0.0-0.7); ABSOLUTE GRANULOCYTE CT 9.3 /CUMM (1.4-6.5); ABSOLUTE LYMPH COUNT 1.4 /CUMM (1.2-3.4); BASOPHIL % 0.1 % (0.0-2.0); EOSINOPHIL % 2.1 % (0-5); GRANULOCYTE % 77.7 % (42.2-75.2); HEMATOCRIT 29.6 % (42-52); MEAN CORPUSCULAR HGB 30.8 PG (27.0-31.0); MEAN CORPUSCULAR HGB CONC 33.4 G/DL (33.0-37.0); MEAN CORPUSCULAR VOLUME 92.1 FL (80.0-94.0); PLATELET COUNT 236 /CUMM (130-400); RBC DISTRIBUTION WIDTH 15.4 % (11.5-14.5); RED BLOOD CELL CT 3.21 /CUMM (4.70-6.10)
[2016-05-22 08:00] VITALS: BP 130/80
--- NOTE | 2016-05-22 08:19 | NUR ---
Following patients progress. Received consult request this am, entered last evening. Reason for consult request was "Capacity Assessment". Patients has had a temporary conservator has been appointed for both person and estate . His sister(s) Theresa Garcia and Cory Botelloe are his Conservator of Person, and his sister Inna Mims is his Conservator of Estate. Will collaborate with case management regarding disposition plans.
--- NOTE | 2016-05-22 10:18 | Event Note ---
Event Note Event Note: CONNIE drains #2 & #3 (middle and right respectively) were dc'd bedside. Drains were taken off of suction, stay suture was cut and tubes removed. Mcclure were placed in old drain sites. Dry dressings applied. Middle incision annie removed. Patient tolerated procedures well.
--- NOTE | 2016-05-22 10:47 | PN- Infect Dx ---
Subjective Subjective: Afebrile without complaints Objective Last 24 Hrs of Vital Signs/I&O Vital Signs Date Time Temp Pulse Resp B/P Pulse O2 O2 Flow FiO2 Ox Delivery Rate 05/22 0820 96 Trach Mask 28% 05/22 0603 99 Trach Mask 28% 05/22 0135 100 Trach Mask 28% 05/22 0000 97 Trach Mask 28% 05/21 2331 98.0 97 16 142/82 97 Trach Mask 28% 05/21 1640 99 Trach Mask 28% 05/21 1600 95 Trach Mask 28% 05/21 1600 97.6 97 16 138/80 98 Trach Mask 28% Intake & Output 05/22 1600 05/22 0800 05/22 0000 Intake Total 1223.0 1135.0 Output Total 400 200 Balance 823.0 935.0 Intake, IV 148 149 Intake, Lipid 773.0 33.0 Intake, Oral 0 0 Intake, 140 815 TPN/PPN Intake, Tube 62 38 Feeding Intake, Tube 100 100 Irrigant Number 2 0 Bowel Movements Output, 250 200 Drainage Output, Urine 150 Physical Exam Other Physical Findings: He appears comfortable in no acute distress Chest Pro-Line in the right upper chest with no inflammation at the site Lungs are clear Heart regular rhythm with no murmur Abdomen is soft, nontender with positive bowel sounds; 3 CONNIE drains remain in place, with significant output continuing from drains #2 and 3 Extremities no cyanosis, clubbing or edema Results Last 24 Hours of Lab Results: Laboratory Tests 05/22 0520 Chemistry Sodium (137 - 145 mmol/L) 134 L Potassium (3.5 - 5.1 mmol/L) 4.0 Chloride (98 - 107 mmol/L) 99 Carbon Dioxide (22 - 30 mmol/L) 29 Anion Gap (5 - 16) 6 BUN (9 - 20 mg/dL) 27 H Creatinine (0.7 - 1.2 mg/dL) 0.7 Estimated GFR (>60 ml/min) > 60 Glucose (65 - 99 mg/dL) 155 H Calcium (8.4 - 10.2 mg/dL) 9.0 Phosphorus (2.5 - 4.5 mg/dL) 5.2 H Magnesium (1.6 - 2.3 mg/dL) 2.0 Total Bilirubin (0.2 - 1.3 mg/dL) 1.5 H Direct Bilirubin (< 0.4 mg/dL) 0.7 H AST (17 - 59 U/L) 92 H ALT (21 - 72 U/L) 59 Alkaline Phosphatase (< 127 U/L) 116 Total Protein (6.3 - 8.2 g/dL) 5.7 L Albumin (3.5 - 5.0 g/dL) 2.5 L Lipase (23 - 300 U/L) 1925 H Hematology CBC w Diff NO MAN DIFF REQ WBC (4.8 - 10.8 /CUMM) 12.0 H RBC (4.70 - 6.10 /CUMM) 3.21 L Hgb (14.0 - 18.0 G/DL) 9.9 L Hct (42 - 52 %) 29.6 L MCV (80.0 - 94.0 FL) 92.1 MCH (27.0 - 31.0 PG) 30.8 RDW (11.5 - 14.5 %) 15.4 H Plt Count (130 - 400 /CUMM) 236 MPV (7.4 - 10.4 FL) 10.0 Gran % (42.2 - 75.2 %) 77.7 H Lymphocytes % (20.5 - 51.1 %) 11.5 L Monocytes % (1.7 - 9.3 %) 8.6 Eosinophils % (0 - 5 %) 2.1 Basophils % (0.0 - 2.0 %) 0.1 Absolute Granulocytes (1.4 - 6.5 /CUMM) 9.3 H Absolute Lymphocytes (1.2 - 3.4 /CUMM) 1.4 Absolute Monocytes (0.10 - 0.60 /CUMM) 1.0 H Absolute Eosinophils (0.0 - 0.7 /CUMM) 0.2 Absolute Basophils (0.0 - 0.2 /CUMM) 0 PUBS MCHC (33.0 - 37.0 G/DL) 33.4 Last 24 Hours of Garcia Results: No recent cultures Recent Imaging Studies: Chest x-ray May 21 negative Assessment/Plan Impression: Doing well with temperatures remaining normal now off antibiotics for 2 days after another course of Meropenem for a recurrent fever in the setting of a presumed duodenal leak following a perforated duodenal ulcer, now 30 days status post laparoscopic Clint plication. His white blood cell count is mildly elevated today, of unclear significance, and this will need to be monitored. His lipase remains elevated, though not significantly change from yesterday, possibly secondary to the lipids, which have now apparently been on hold for 3 days, and tube feedings have been initiated. Suggestion: 1. Further management regarding his drains and feedings per Surgery 2. Continue to follow off antibiotics
--- NOTE | 2016-05-22 11:06 | PN- Pulmonary ---
Subjective HPI/Critical Care Issues: The patient is awake and more alert each day. He still has some fluctuation in his mental status. He denies any current complaints. Objective Current Medications: Current Medications Sig/Roberto Start time Last Medication Dose Route Stop Time Status Admin Albuterol Sulfate 3 ML EVERY 4 HRS/AWAKE 05/01 2000 AC 05/22 INH 0812 Fat Emulsion 450 ML 1900 05/22 1900 AC Intravenous IV 05/23 185 Fat Emulsion 450 ML 1900 05/21 1900 AC 05/21 Intravenous IV 05/22 Fat Emulsion 450 ML 1900 05/20 1900 DC Intravenous IV 05/21 185 Fentanyl Citrate 25 MCG Q2 PRN 05/17 1200 AC 05/19 IV 2329 Heparin Sodium 5,000 UNIT Q8 05/20 1400 AC 05/22 (Porcine) SC 0611 Insulin Aspart 0 Q8 05/08 1400 AC 05/22 SC 0611 Lactulose 20 GM BID 05/16 2200 AC 05/21 PO 2206 Lorazepam 1 MG Q8P PRN 05/19 0815 AC 05/19 IV 1017 Ondansetron HCl 4 MG Q8P PRN 04/22 0600 AC IV Pantoprazole Sodium 40 MG Q5H 05/15 0415 AC 05/22 Sodium Chloride 100 ML IV 0611 Total Parenteral 1 UNIT 1900 05/22 190 AC Nutrition IV 05/23 185 Total Parenteral 1 UNIT 1900 05/21 190 AC 05/21 Nutrition IV 05/22 Total Parenteral 1 UNIT 1900 05/20 190 DC 05/20 Nutrition IV 05/21 Vital Signs & I&O Last 24 Hrs of Vitals and I&O: Vital Signs Date Time Temp Pulse Resp B/P Pulse O2 O2 Flow FiO2 Ox Delivery Rate 05/22 0820 96 Trach Mask 28% 05/22 0603 99 Trach Mask 28% 05/22 0135 100 Trach Mask 28% 05/22 0000 97 Trach Mask 28% 05/21 2331 98.0 97 16 142/82 97 Trach Mask 28% 05/21 1640 99 Trach Mask 28% 05/21 1600 95 Trach Mask 28% 05/21 1600 97.6 97 16 138/80 98 Trach Mask 28% Intake & Output 05/22 1600 05/22 0800 05/22 0000 Intake Total 1223.0 1135.0 Output Total 400 200 Balance 823.0 935.0 Intake, IV 148 149 Intake, Lipid 773.0 33.0 Intake, Oral 0 0 Intake, 140 815 TPN/PPN Intake, Tube 62 38 Feeding Intake, Tube 100 100 Irrigant Number 2 0 Bowel Movements Output, 250 200 Drainage Output, Urine 150 Exam General Appearance: awake, comfortable Head: atraumatic Neck: supple, trach in place, no bleeding Respiratory: no respiratory distress, clear anteriorly, lungs expand symmetrically, trachea midline Cardiovascular: regular rate/rhythm, tachycardia, S1 and S2 heard Abdomen: CONNIE drains in place, NG tube has clear drainage Extremities: warm and dry Skin: no cyanosis or edema Results Last 24 Hrs of Lab Results: Laboratory Tests 05/22/16 0520: Anion Gap 6, Estimated GFR > 60, Glucose 155 H, Calcium 9.0, Phosphorus 5.2 H, Magnesium 2.0, Total Bilirubin 1.5 H, Direct Bilirubin 0.7 H, AST 92 H, ALT 59, Alkaline Phosphatase 116, Total Protein 5.7 L, Albumin 2.5 L, Lipase 1925 H, CBC w Diff NO MAN DIFF REQ, RBC 3.21 L, MCV 92.1, MCH 30.8, RDW 15.4 H, MPV 10.0, Gran % 77.7 H, Lymphocytes % 11.5 L, Monocytes % 8.6, Eosinophils % 2.1, Basophils % 0.1, Absolute Granulocytes 9.3 H, Absolute Lymphocytes 1.4, Absolute Monocytes 1.0 H, Absolute Eosinophils 0.2, Absolute Basophils 0, PUBS MCHC 33.4 Impression/Plan Impression/Plan Impression/Plan: 1. 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 2. Respiratory failure s/p tracheostomy placement. Improved. 3. Resolved acute anemia with bleeding secondary to NG tube trauma. 4. Encephalopathy - significantly improved overall. 5. Fever, cultures negative, now being observed off antibiotics. 6. 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 7. Severe malnutrition - on TPN. A swallowing evaluation will be checked today as well as an attempt to elemental feeding. 8. Elevated lipase, secondary to lipids? Recommendations: * Continue tube feeds. * Monitor off antibiotics. * Continue TPN pending improved nutrition. * Continue DVT and GI prophylaxis. * Skin care protocol to continue. * PT and OT. * Continue all supportive care. * Will leave management of drains as per surgery. * SQ heparin for DVT prophylaxis.
--- NOTE | 2016-05-22 11:58 | PN- Resident CRCU ---
Subjective HPI/CRCU Issues: Patient seen and examined. He is seen lying flat in bed resting comfortably. He says he feels fine and that he tolerated his physical therapy session well yesterday, however did have some coughing when he was evaluated by the speech pathologist. He is eager and willing to participate with both activities today. He has no complaints, but does admit that the NG tube is uncomfortable. Additionally he denies any headache, fever, chills, chest pain, shortness of breath, nausea, vomiting, diarrhea. Yesterday afternoon his NG tube reportedly came out after he sneezed which required replacement. He is tolerating his tube feeds well without any associated nausea or vomiting. Objective Vital Signs & I&O Last 8 Hrs of Vitals and I&O: Vitals: - Temperature: 98.0 - Heart Rate: 97 - Respiratory Rate: 16 - Systolic Blood pressure: 142 - Diastolic Blood pressure: 82 - Oxygen Saturation: 96-100% via tracheostomy Exam General Appearance: well developed/nourished, no apparent distress, alert, awake , comfortable, obese Other Physical Findings: General - Well Developed, Well Nourished obese male in no acute distress HEENT - NCAT, PERRL, EOMI, anicteric sclera, NG tube in place, tracheostomy in place Cardio - S1, S2 w/o murmurs/gallops/rubs, proline in place Resp - CTA bilaterally w/o wheezing/rhochi/crackles GI -soft, nontender, nondistended, multiple lines in place with well healing surgical incisions and annie without any drainage Neuro - Awake and alert, CN II - XII grossly intact Weaning Parameters NIF: 39 Minute Volume: 14.0 Resp rate: 23 Vt: 588 Heart Rate: 90 Weaning Schedule Start Time: 932 Minute Volume: 13 Resp Rate: 25 Vt: 557 Heart Rate: 90 End Time: 1105 Minute Volume: 15 Resp Rate: 20 Vt: 680 Heart Rate: 100 Start Time: 1345 Resp Rate: 24 Heart Rate: 113 Current Medications: Current Medications Sig/Roberto Start time Last Medication Dose Route Stop Time Status Admin Albuterol Sulfate 3 ML EVERY 4 HRS/AWAKE 05/01 2000 AC 05/22 INH 0812 Fat Emulsion 450 ML 05/22 AC Intravenous IV 05/23 185 Fat Emulsion 450 ML 05/21 1900 AC 05/21 Intravenous IV 05/22 Fat Emulsion 450 ML 1900 05/20 1900 DC Intravenous IV 05/21 1859 Fentanyl Citrate 25 MCG Q2 PRN 05/17 1200 AC 05/19 IV 2329 Heparin Sodium 5,000 UNIT Q8 05/20 1400 AC 05/22 (Porcine) SC 0611 Insulin Aspart 0 Q8 05/08 1400 AC 05/22 SC 0611 Lactulose 20 GM BID 05/16 2200 AC 05/21 PO 2206 Lorazepam 1 MG Q8P PRN 05/19 0815 AC 05/19 IV 1017 Ondansetron HCl 4 MG Q8P PRN 04/22 0600 AC IV Pantoprazole Sodium 40 MG Q5H 05/15 0415 AC 05/22 Sodium Chloride 100 ML IV 06 Total Parenteral 1 UNIT 1900 05/22 1900 AC Nutrition IV 05/23 1859 Total Parenteral 1 UNIT 1900 05/21 1900 AC 05/21 Nutrition IV 05/22 Total Parenteral 1 UNIT 1900 05/20 190 DC 05/20 Nutrition IV 05/21 Impression/Plan Impression/Problem List Impression: Patient continues to improve each day, this morning he is speaking well and is fully audible. He was evaluated by Dr. Murillo this morning whom authorized removal of 2/3 of the CONNIE lines. Assessment from the speech pathologist determined that he was capable of a pure/thin diet. NG tube is to come out today and he has to be started on a diabetic diet with those parameters. TPN is to be continued for the interim. Psychiatry and social work will see the patient today to determine capacity/competency in regards to his healthcare and financial decisions. Lipase continues to remain elevated. HRT antibody was returned weakly positive today, subcutaneous heparin was held while further recommendations regarding this result are pending. No active bleeding or obvious thrombosis exists. Problem list: -Duodenal ulcer perforation status post surgical repair -Sepsis, now resolved -Delirium, now resolved -History of alcohol abuse Gastrointestinal: Patient admitted for perforated duodenal ulcer complicated with peritonitis. Currently status post status post surgical repair. -NG tube removed -Tube feeds discontinued -CONNIE tubes #2/#3 removed -Consistent carbohydrate diet with Puree/thin started -TPN nutrition to be continued -Calorie counts -Protonix drip -Lactulose 20 g NG a day -Surgery consult following -GI consult following -Daily LFTs, lipase Infectious disease: Patient had intermittent spikes in temperature for which meropenem was prescribed for a total of 23 days in 3 different intervals. Meropenem was discontinued on 05/20/16 as patient had improved leukocytosis and remained afebrile for some time now any obvious sign of infection. -Infectious disease consult following -Consider CT abdomen/pelvis if lipase continues to remain elevated Respiratory-tracheostomy in place with adequate oxygen saturation Cardiovascular - history of HTN, HLD, no active problems, continue telemetry Hematology- stable hemoglobin/hemocrit, daily CBC Diet- Consistent carbohydrate 3 started (puree/thin) DVT prophylaxis-subcutaneous heparin CODE STATUS-full code Problem List: 1. Perforation bowel 2. Peritonitis Pain Ratin Tomorrow's Labs & Rationales: Complete blood count ICU bundle Hepatic function panel Lipase Plan DVT/Prophylaxis: mechanical Code Status: Full Code
--- NOTE | 2016-05-22 13:57 | NUR ---
PT IS AWAKE AND ORIENTED TO NAME AND PLACE, KNOWS MONTH AND SEASON . FOLLOWS ALL COMMANDS. OOB WITH ASSIST OF ONE AND ROLLING WALKER. AMBULATED WITH PHYSICAL THERAPY IN [place]. PASSED SWALLOW EVAL FOR PUREED DIET WITH THIN LIQUIDS. MAINTAINED ON TRACH MASK 28% AND HE DOES HAVE A STRONG COUGH. MONITOR IS NSR. HE DENIES PAIN. 2 ABDOMINAL DRAINS D/C/D BY SURGICAL PA. ( MIDDLE AND LEFT). FLORES REMOVED, MIDDLE DRAIN SITE SUTURED AND DSD APPLIED. LEFT DRAIN CONTINUES TO SHOW GREENISH FOUL SMELLING DRAINAGE.
[2016-05-22 16:00] VITALS: BP 140/70
--- NOTE | 2016-05-22 19:12 | NUR ---
Additonal consult request received this morning regarding patients capacity. Case discussed with both Dr. Pascal and Dr. Mack. While the patient has had Temporary Conservators ( of both person and estate), family members still have questions as patient's level of functioning and mental status improves. Spoke with patients mother this am; she is not the conservator, but is an RN and visits daily for long periods of time. Patients sisters and adult (age 20) daughter are concerned that patients mentation will continue to improve before Probate term expires (06/08/16). Call placed to sister Cory Delgado; case reviewed and she acknowleges awareness of improvement but not consistently. She specifically acknowledges a significant period of lucidity last evening and contrasting confusion this am. She also is concerned about the patients lack of sleep. Briefly discussed potential disposition options as I know them (based on conversation with case preparer and liner). Will continue to follow and offer support..
[2016-05-23] VITALS: BP 160/70
--- NOTE | 2016-05-23 00:25 | NUR ---
PT AWAKE AND ALERT, ABLE TO VERBALIZE NEED. MANUAL BP 160/70, NSR 90'S. SATURATION 95% ON 28% TM, LUNGS SOUND CLEAR. SUCTIONED THICK WHITE SERETIONS FROM TM. COUGHS UP THICK WHITE SECRETIONS WELL.TPN AND LIPIDS INFUSING ORDERED. PROTONIX GTT INFUSING WELL. CONNIE X 1 TO LEFT ABDOMEN.
--- NOTE | 2016-05-23 04:55 | PN- Orthopedic ---
Subjective Subjective: The patient was seen this morning he reports his pain is under adequate control. He is tolerating a diabetic diet without nausea and continues to have bowel movements. There are no significant issues overnight per nursing staff. Objective Vital Signs and I&Os Vital Signs Date Time Temp Pulse Resp B/P Pulse O2 O2 Flow FiO2 Ox Delivery Rate 05/23 0000 95 Trach Mask 28% 05/23 0000 98.0 97 24 160/70 95 Trach Mask 28% 05/22 2348 Trach Mask 28% 05/22 2000 100 Trach Mask 28% 05/22 1649 96 Trach Mask 28% 05/22 1600 97.4 96 18 140/70 96 Trach Mask 28% 05/22 1600 95 Trach Mask 28% 05/22 1213 95 Trach Mask 28% 05/22 0820 96 Trach Mask 28% 05/22 0800 97.6 98 16 130/80 16 Trach Mask 28% 05/22 0800 96 Trach Mask 28% 05/22 0603 99 Trach Mask 28% Intake & Output 05/23 0800 05/23 0000 05/22 1600 05/22 0800 05/22 0000 05/21 1600 Intake Total 1142 1724.0 1223.0 1135.0 993 Output Total 200 510 400 200 450 Balance 942 1214.0 823.0 935.0 543 Intake, IV 1142 148 149 993 Intake, Lipid 150.4 773.0 33.0 Intake, Oral 650 0 0 Intake, 833.6 140 815 TPN/PPN Intake, Tube 40 62 38 Feeding Intake, Tube 50 100 100 Irrigant Number 3 2 0 2 Bowel Movements Output, 110 250 200 450 Drainage Output, Urine 200 400 150 Physical Exam: Gen.: Alert and obvious distress Skin: Warm and dry Abdomen: Softly distended, obese, nontender, bowel sounds positive. Port sites are clean without signs of infection. Previous CONNIE sites with some ascitic drainage on dressing. 1 CONNIE remains with bilious drainage in the suction bulb. Extremities: Bilateral lower extremities are warm without calf tenderness. Assessment/Plan Assessment/Plan Assessment: 51-year-old male status post lap scopic Clint patch repair of perforated ulcer has had a complicated postoperative recovery however is making significant improvement. Recommendations: Continue diabetic diet Tight glycemic control Monitor CONNIE outputs well on diet If there are no significant changes over the weekends we will start inching out the remaining CONNIE Continue to monitor off antibiotics Will probably require periodic paracentesis if continues to cannulate ascites GI and DVT prophylaxis Continue PPI Continue care per primary team and consultation recommendations
[2016-05-23 05:26] LABS: ABSOLUTE BASOPHIL COUNT 0 /CUMM (0.0-0.2); ABSOLUTE EOSINOPHIL COUNT 0.2 /CUMM (0.0-0.7); ABSOLUTE LYMPH COUNT 1.3 /CUMM (1.2-3.4); ABSOLUTE MONOCYTE COUNT 1.2 /CUMM (0.10-0.60); BASOPHIL % 0.3 % (0.0-2.0); EOSINOPHIL % 1.6 % (0-5); GRANULOCYTE % 78.9 % (42.2-75.2); HEMATOCRIT 27.9 % (42-52); MEAN CORPUSCULAR HGB 30.9 PG (27.0-31.0); MEAN CORPUSCULAR HGB CONC 33.4 G/DL (33.0-37.0); MEAN CORPUSCULAR VOLUME 92.3 FL (80.0-94.0); MEAN PLATELET VOLUME 9.7 FL (7.4-10.4); PLATELET COUNT 244 /CUMM (130-400); RBC DISTRIBUTION WIDTH 15.2 % (11.5-14.5); RED BLOOD CELL CT 3.03 /CUMM (4.70-6.10); WHITE BLOOD CELL COUNT 12.6 /CUMM (4.8-10.8)
[2016-05-23 08:00] VITALS: BP 146/80
--- NOTE | 2016-05-23 09:33 | PN- Pulmonary ---
Subjective HPI/Critical Care Issues: The patient is awake and alert. He did not sleep well. He is eating better. There were no other overnight events reported. Objective Current Medications: Current Medications Sig/Roberto Start time Last Medication Dose Route Stop Time Status Admin Albuterol Sulfate 3 ML BID 05/23 1000 UNVr INH Albuterol Sulfate 3 ML EVERY 4 HRS/AWAKE 05/01 2000 DC 05/22 INH 2136 Fat Emulsion 450 ML 1900 05/22 1900 AC 05/22 Intravenous IV 05/23 Fat Emulsion 450 ML 1900 05/21 1900 DC 05/21 Intravenous IV 05/22 Fentanyl Citrate 25 MCG Q2 PRN 05/17 1200 AC 05/19 IV 2329 Heparin Sodium 5,000 UNIT Q8 05/23 1400 AC (Porcine) SC Heparin Sodium 5,000 UNIT Q8 05/20 1400 DC 05/22 (Porcine) SC 0611 Insulin Aspart 0 Q6 05/22 2359 AC 05/22 SC 2344 Insulin Aspart 0 Q8 05/08 1400 DC 05/22 SC 1400 Lactulose 20 GM BID 05/16 2200 AC 05/22 PO 2157 Lorazepam 1 MG Q8P PRN 05/19 0815 AC 05/19 IV 1017 Ondansetron HCl 4 MG Q8P PRN 04/22 0600 AC IV Pantoprazole Sodium 40 MG Q5H 05/15 0415 AC 05/23 Sodium Chloride 100 ML IV 0202 Total Parenteral 1 UNIT 1900 05/22 1900 AC 05/22 Nutrition IV 05/23 Total Parenteral 1 UNIT 1900 05/21 1900 DC 05/21 Nutrition IV 05/22 Vital Signs & I&O Last 24 Hrs of Vitals and I&O: Vital Signs Date Time Temp Pulse Resp B/P Pulse O2 O2 Flow FiO2 Ox Delivery Rate 05/23 0000 95 Trach Mask 28% 05/23 0000 98.0 97 24 160/70 95 Trach Mask 28% 05/22 2348 Trach Mask 28% 05/22 2000 100 Trach Mask 28% 05/22 1649 96 Trach Mask 28% 05/22 1600 97.4 96 18 140/70 96 Trach Mask 28% 05/22 1600 95 Trach Mask 28% 05/22 1213 95 Trach Mask 28% Intake & Output 05/23 1600 05/23 0800 05/23 0000 Intake Total 2090.0 1142 Output Total 200 Balance 2090.0 942 Intake, IV 288 1142 Intake, Lipid 274.0 Intake, 1528 TPN/PPN Number 2 Bowel Movements Output, Urine 200 Patient 285 lb Weight Exam General Appearance: awake, comfortable Head: atraumatic Neck: supple, trach in place Respiratory: no respiratory distress, clear anteriorly, lungs expand symmetrically, trachea midline Cardiovascular: regular rate/rhythm, tachycardia, S1 and S2 heard Abdomen: CONNIE drains in place, NG tube has clear drainage Extremities: warm and dry Skin: no cyanosis or edema Results Last 24 Hrs of Lab Results: Laboratory Tests 05/23/16 0430: Anion Gap 8, Estimated GFR > 60, Glucose 137 H, Calcium 8.9, Phosphorus 4.5, Magnesium 1.9, Total Bilirubin 1.6 H, Direct Bilirubin 0.6 H, AST 86 H, ALT 58, Alkaline Phosphatase 116, Total Protein 5.7 L, Albumin 2.4 L, Lipase 1999 H, CBC w Diff NO MAN DIFF REQ, RBC 3.03 L, MCV 92.3, MCH 30.9, RDW 15.2 H, MPV 9.7, Gran % 78.9 H, Lymphocytes % 10.0 L, Monocytes % 9.2, Eosinophils % 1.6, Basophils % 0.3, Absolute Granulocytes 10.0 H, Absolute Lymphocytes 1.3, Absolute Monocytes 1.2 H, Absolute Eosinophils 0.2, Absolute Basophils 0, PUBS MCHC 33.4 Impression/Plan Impression/Plan Impression/Plan: 1. 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 2. Respiratory failure s/p tracheostomy placement. Improved. 3. Resolved acute anemia with bleeding secondary to NG tube trauma. 4. Encephalopathy - significantly improved overall. 5. Fever, cultures negative, now being observed off antibiotics. 6. 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 7. Severe malnutrition - on TPN. A swallowing evaluation will be checked today as well as an attempt to elemental feeding. 8. Elevated lipase, secondary to lipids? Recommendations: * Monitor off antibiotics. * Continue TPN pending improved nutrition. * Continue oral feeds. * Continue DVT and GI prophylaxis. * Skin care protocol to continue. * PT and OT to continue. * [place] evaluation. * Will leave management of drains as per surgery. * SQ heparin for DVT prophylaxis. Will monitor platelet count. * Continue all supportive care.
--- NOTE | 2016-05-23 11:24 | PN- Resident CRCU ---
Subjective HPI/CRCU Issues: Patient seen and examined. He is seen lying upright in bed resting comfortably. At present he is complaining of 5/10 right lower quadrant crampy abdominal pain. He attributes this to his diet but wants to make sure there is nothing wrong with where they removed the drains yesterday. Otherwise he feels well and is in good spirits. He denies any pain nausea or vomiting associated with eating, only after this he feel abdominal discomfort. He mentions that the food "goes right through him". Additionally he denies any headache, fever, chills, chest pain, shortness of breath. No overnight events reported. Objective Vital Signs & I&O Last 8 Hrs of Vitals and I&O: Vitals: - Temperature: 98.0 - Heart Rate: 97 - Respiratory Rate: 24 - Systolic Blood pressure: 160 - Diastolic Blood pressure: 70 - Oxygen Saturation: 94-95% via tracheostomy Exam General Appearance: well developed/nourished, no apparent distress, alert, awake , comfortable, obese Other Physical Findings: General -well-developed, well-nourished obese male in no acute distress HEENT - NCAT, PERRL, EOMI, anicteric sclera, tracheostomy in place Cardio - S1, S2 w/o murmurs/gallops/rubs Resp - CTA bilaterally w/o wheezing/rhochi/crackles GI -soft, 5/10 right lower quadrant tenderness, nondistended, bowel sounds present, CONNIE line intact Neuro - Awake and alert, CN II - XII grossly intact Weaning Parameters NIF: 39 Minute Volume: 14.0 Resp rate: 23 Vt: 588 Heart Rate: 90 Weaning Schedule Start Time: 0933 Minute Volume: 13 Resp Rate: 25 Vt: 557 Heart Rate: 90 End Time: 1105 Minute Volume: 15 Resp Rate: 20 Vt: 680 Heart Rate: 100 Start Time: 1345 Resp Rate: 24 Heart Rate: 113 Current Medications: Current Medications Sig/Roberto Start time Last Medication Dose Route Stop Time Status Admin Acetaminophen 650 MG ONCE ONE 05/23 1200 DC PO 05/23 1201 Albuterol Sulfate 3 ML BID 05/23 1000 AC 05/23 INH 1025 Albuterol Sulfate 3 ML EVERY 4 HRS/AWAKE 05/01 2000 DC 05/22 INH 2136 Fat Emulsion 450 ML 1900 05/23 1900 AC Intravenous IV 12/31 1859 Fat Emulsion 450 ML 1900 05/22 1900 AC 05/22 Intravenous IV 05/23 Fat Emulsion 450 ML 1900 05/21 1900 DC 05/21 Intravenous IV 05/22 Fentanyl Citrate 25 MCG Q2 PRN 05/17 1200 AC 05/19 IV 2329 Heparin Sodium 5,000 UNIT Q8 05/23 1400 AC (Porcine) SC Heparin Sodium 5,000 UNIT Q8 05/20 1400 DC 05/22 (Porcine) SC 0611 Insulin Aspart 0 Q6 05/22 2359 AC 05/22 SC 2344 Insulin Aspart 0 Q8 05/08 1400 DC 05/22 SC 1400 Lactulose 20 GM BID 05/16 2200 AC 05/22 PO 2157 Lorazepam 1 MG Q8P PRN 05/19 0815 AC 05/19 IV 1017 Melatonin 5 MG AT BEDTIME 05/23 2200 AC PO Omeprazole 40 MG BID 05/23 1011 AC PO Ondansetron HCl 4 MG Q8P PRN 04/22 0600 AC IV Pantoprazole Sodium 40 MG Q5H 05/15 0415 DC 05/23 Sodium Chloride 100 ML IV 0202 Total Parenteral 1 UNIT 1900 05/23 190 AC Nutrition IV 05/24 1859 Total Parenteral 1 UNIT 1900 05/22 190 AC 05/22 Nutrition IV 05/23 Total Parenteral 1 UNIT 1900 05/21 1900 DC 05/21 Nutrition IV 05/22 Impression/Plan Impression/Problem List Impression: Patient was started on a pure/thin diabetic diet yesterday and tolerated it well without any associated abdominal pain, nausea, or vomiting. After breakfast and lunch today he developed 5/10 right lower quadrant crampy abdominal pain without any nausea or vomiting. This was discussed with the radiologist and attending and it was decided to obtain a CT scan of the abdomen/ pelvis with IV and by mouth contrast to assess for any pathology. Otherwise he feels well and has no complaints other than mild knee pain that responded well to Tylenol. Protonix drip was converted to oral formulation today. HRT antibody was found to be weakly positive yesterday which was discussed with oncology whom said that without any clinical evidence of active heparin-induced thrombocytopenia the patient can be continued on heparin for DVT prophylaxis. This can be further evaluated as an outpatient with a serotonin release assay or if clinically evident disease should arise. An agent from [place] [facility] will evaluate the patient today for placement assessment. Psychiatry evaluated the patient today whom believe the patient to have some element of depression however does not feel any treatment is indicated at this time in the setting of acute illness. He will require follow-up at [facility] upon discharge from [place], psychiatry should be contacted when his discharge date is known to set up an appointment at . Problem list: -Duodenal ulcer perforation status post surgical repair -Sepsis, now resolved -Delirium, now resolved -History of alcohol abuse Gastrointestinal: Patient admitted for perforated duodenal ulcer complicated with peritonitis. Currently status post status post surgical repair. -CONNIE tubes #[address] -Consistent carbohydrate diet with Puree/thin started -TPN nutrition to be continued -Calorie counts -Protonix drip converted to Omeprazole 40mg PO BID today -Lactulose 20 g NG a day -Surgery consult following -GI consult following -Daily LFTs, lipase Infectious disease: Patient had intermittent spikes in temperature for which meropenem was prescribed for a total of 23 days in 3 different intervals. Meropenem was discontinued on 05/20/16 as patient had improved leukocytosis and remained afebrile for some time now any obvious sign of infection. -Infectious disease consult following -Consider CT abdomen/pelvis if lipase continues to remain elevated Respiratory-tracheostomy in place with adequate oxygen saturation Cardiovascular - history of HTN, HLD, no active problems, continue telemetry Hematology- stable hemoglobin/hemocrit, daily CBC Diet- Consistent carbohydrate 3 started (puree/thin) DVT prophylaxis-subcutaneous heparin CODE STATUS-full code Problem List: 1. Perforation bowel Pain Ratin Tomorrow's Labs & Rationales: Complete blood count ICU bundle Liver function tests Lipase Plan DVT/Prophylaxis: mechanical Code Status: Full Code
--- NOTE | 2016-05-23 13:08 | NUR ---
SPEECH THERAPY: ST ATTEMPTED TO SEE PT FOR DYSPHAGIA TX. PER MD, PT CURRENTLY NPO FOR CT SCAN OF ABDOMEN; UNABLE TO BE SEEN. MD REPORTS PT ABLE TO TOLERATE APPROX. 25% OF CURRENT DIET (PUREE AND THIN LIQUIDS) FOR BREAKFAST/LUNCH W/ NO OVERT DIFFICULTIES, BUT PT C/O OF ABDOMEN PAIN. ST CONTINUE TO FOLLOW FOR DIET TOLERANCE/UPGRADE.
--- NOTE | 2016-05-23 13:17 | NUR ---
WOUND CARE: REQUESTED BY NURSING HOOP RIVETING MACHINE OPERATOR HELPER TO EVALUATE PT FOR SKIN ALTERATIONS - PT SLEEPING AT TIME OF ASSESSMENT - DISCUSSED SKIN INTEGRITY WITH CHARGE NURSE [place] - REPORTS SKIN IS COMPLETELY INTACT WITHOUT EVIDENCE OF PRESSURE INJURIES AT THIS TIME - ONLY AREA REPORTED BY NURSING STAFF IS SLIGHT HEAT RASH NOTED TO BACK - PT HAS DEMONSTRATED IMPROVED MOBILITY - WILL CONT TO MONITOR - RECOMMEND CONT WITH PREVENTATIVE CAR IS CURRENTLY IN PLACE
[2016-05-23 16:00] VITALS: BP 140/70
--- NOTE | 2016-05-23 17:17 | CT SCAN REPORT ---
EXAMINATION: CT ABDOMEN AND PELVIS WITH CONTRAST CLINICAL INFORMATION: Perforated duodenal ulcer. Status post repair. Elevated lipase levels. Evaluate for pancreatitis. COMPARISON: CT chest, abdomen and pelvis 05/12/2016. TECHNIQUE: Multidetector volumetric imaging was performed of the abdomen and pelvis before and after the IV administration of 94 mL of Optiray 320 intravenous contrast. Sagittal and coronal reformatted images were obtained on the technologist's workstation. DLP: 1453 mGy-cm. FINDINGS: LUNG BASES: Evaluation of the included lung bases demonstrates a trace right-sided pleural effusion. There is a partially visualized elongated opacity along the right major fissure measuring 1.6 cm, slightly less conspicuous relative to the prior examination. The heart is normal in size, without significant pericardial effusion. LIVER, GALLBLADDER, AND BILIARY TREE: Redemonstrated are postsurgical changes related to repair of a perforated duodenal ulcer. Previously noted periduodenal edema appears slightly improved relative to the prior exam. There is stable course and positioning of the percutaneous surgical drain, which is again visualized traversing the left lateral intra-abdominal wall and terminating within the inferior region of the gallbladder fossa. In comparison to the prior examination, there has been slight interval decrease in previously noted perihepatic ascites. The liver is again noted to be enlarged and is visualized measuring approximately 22 cm in length. The liver remains lobular in contour. No focal hepatic lesions are identified and there is no appreciable biliary ductal dilatation. The gallbladder is decompressed. Hyperdensity within the gallbladder lumen is nonspecific but could reflect biliary sludge. Gallbladder wall thickening is also entirely nonspecific and may represent mucosal edema of the gallbladder wall secondary to adjacent perihepatic ascites. No gallstones are identified. PANCREAS: No significant peripancreatic inflammatory changes or fluid collections. However, please note that lack of CT findings of acute pancreatitis does not exclude the diagnosis. SPLEEN: Mild splenomegaly, with the spleen visualized measuring approximately 17 cm in craniocaudal dimension, not significantly changed relative to the prior exam. ADRENAL GLANDS: Unremarkable. KIDNEYS AND URETERS: The kidneys are normal in size and enhance homogeneously, without focal lesions. There is no appreciable nephrolithiasis or hydroureteronephrosis of either kidney or renal collecting system. No ureteral stones are identified. BLADDER: Partially obscured secondary to streak artifact from total left hip arthroplasty. GASTROINTESTINAL TRACT: Oral contrast is visualized opacifying the stomach as well as the proximal duodenum and small bowel. There is no appreciable extravasation to suggest a small bowel leak. Contrast is also visualized opacifying the cecum and ascending colon as well as portions of the transverse colon. Abdominal and pelvic bowel loops are normal in caliber, without findings indicative of obstruction. Redemonstrated is scattered colonic diverticulosis, most extensive along the descending and rectosigmoid colon, without secondary signs of acute diverticulitis. There is a small amount of intra-abdominal ascites, notably within the right perihepatic region. The appendix is not clearly visualized on this examination. There are no extraluminal foci of air to suggest perforation. No organizing intra-abdominal or pelvic fluid collections are identified. ABDOMINAL WALL: Small fat-containing bilateral inguinal hernias. LYMPH NODES: Mildly prominent mesenteric lymph nodes, notably within the babak hepatis, likely reactive. No significant retroperitoneal or deep pelvic adenopathy. VASCULAR: Patent abdominal vasculature. Normal course and caliber of the abdominal aorta and its branching vessels, without aneurysmal dilatation. PELVIC VISCERA: Partially obscured secondary to streak artifact from total left hip arthroplasty. OSSEOUS STRUCTURES: As noted above, there is mechanical hardware related to total left hip arthroplasty. No acute osseous abnormality is identified. There are no visible destructive osseous lesions. IMPRESSION: 1. Stable postsurgical changes related to prior repair of a perforated duodenal ulcer. Previously noted periduodenal edema appears slightly improved relative to the prior examination. There is small volume perihepatic ascites. No organizing intra-abdominal or pelvic fluid collections are identified. No extraluminal foci of air to suggest perforation. 2. No significant peripancreatic inflammatory changes to suggest acute pancreatitis. However, please note that lack of CT findings of acute pancreatitis does not exclude the diagnosis. Clinical correlation is recommended. 3. Stable hepatosplenomegaly. 4. Hyperdense material within the gallbladder lumen is nonspecific but may reflect biliary sludge. Gallbladder wall thickening is also entirely nonspecific and may represent gallbladder wall edema given adjacent perihepatic ascites and periduodenal edema. No gallstones. 5. Scattered colonic diverticulosis, without secondary signs of acute diverticulitis.
--- NOTE | 2016-05-23 19:32 | PN- Psychiatry ---
Assessment/Plan Impression: The patient is in agreement to come to [facility] intensive outpatient, for dual track program for alcohol use disorder and mental health, when he is discharged from rehabilitation at [facility]. I've provided the patient with information to contact our program, so that we may enroll him. He appears to be motivated for treatment, and understands that he cannot drink at all anymore, due to his stage IV cirrhosis. Currently, he has finished his alcohol detox, and still has lorazepam ordered on an as-needed basis, but has not needed a dose since it was ordered on 04/19/2016. He had been fed most recently with TPN, but has started to eat, and has been walking with physical therapy. He reports a history of being treated with fluoxetine 20 mg for proximally one year by his primary care provider for depression. The patient feels that this medication did not help him, but verbalizes understanding that this was probably not a therapeutic dose for him, and remains open to the idea that this medication might be useful going forward. Suggestion: 1. Please consider restarting melatonin 3-5 mg by mouth at bedtime to help with insomnia. If this medication is ineffective, you may consider a trial of trazodone 50 mg by mouth at bedtime, however, please clear the use of this medication with cardiology, as it has been associated with TdP in ventricular arrhythmia. 2. Please include on the discharge instructions/W 10, that the receiving facility should contact [facility] intensive outpatient program for an intake appointment, when his discharge date is known. It may take 1-2 weeks to get the patient into a program, so as much leadtime as possible would make for a smooth transition. To make an appointment, please call [phone]. We will continue to follow along with you. Maninder Rangel APRN, pager [phone]. Subjective Subjective: The patient was revisited today, 05/23/2016, at 1115, in ICU room 106. He is alert, and oriented. He is calm, pleasant and able to converse without undue effort despite his tracheostomy tube. He denies auditory or visual hallucinations, and presents no lidia delusions. He reports that his sleep has been poor, probably 3-1/2-4 hours per night since awakening. He reports that his anxiety symptoms are currently 7/10, and depressive symptoms are 7/10; 10/10 would be the most severe. He reports that he has 4 children at home, whose custody he shares with her mother, their divorce being final in 2014. The patient was due to start work at a new job on the morning following his admission to the hospital. He denies suicidal or homicidal ideation, and denies any history of suicide attempt. Objective Last 24 Hrs of Vital Signs/I&O Vital Signs Date Time Temp Pulse Resp B/P Pulse O2 O2 Flow FiO2 Ox Delivery Rate 05/23 1705 94 Room Air Room Air 05/23 1027 94 Room Air 05/23 0000 95 Trach Mask 28% 05/23 0000 98.0 97 24 160/70 95 Trach Mask 28% 05/22 2348 Trach Mask 28% 05/22 2000 100 Trach Mask 28% Intake & Output 05/23 1600 05/23 0800 05/23 0000 Intake Total 2090.0 1142 Output Total 200 Balance 2090.0 942 Intake, IV 288 1142 Intake, Lipid 274.0 Intake, 1528 TPN/PPN Number 2 Bowel Movements Output, Urine 200 Patient 285 lb Weight Current Medications: Current Medications Sig/Roberto Start time Last Medication Dose Route Stop Time Status Admin Acetaminophen 650 MG ONCE ONE 05/23 1200 DC 05/23 PO 05/23 1201 1353 Albuterol Sulfate 3 ML BID 05/23 1000 AC 05/23 INH 1025 Albuterol Sulfate 3 ML EVERY 4 HRS/AWAKE 05/01 2000 DC 05/22 INH 2136 Fat Emulsion 450 ML 1900 05/23 1900 AC Intravenous IV 05/24 185 Fat Emulsion 450 ML 1900 05/22 1900 DC 05/22 Intravenous IV 05/23 1852013 Fentanyl Citrate 25 MCG Q2 PRN 05/17 1200 AC 05/19 IV 2329 Heparin Sodium 5,000 UNIT Q8 05/23 1400 AC 05/23 (Porcine) SC 1352 Insulin Aspart 0 Q6 05/22 2359 AC 05/23 SC 1353 Insulin Aspart 0 Q8 05/08 1400 DC 05/22 SC 1400 Lactulose 20 GM BID 05/16 2200 AC 05/23 PO 1000 Lorazepam 1 MG Q8P PRN 05/19 0815 AC 05/19 IV 1017 Melatonin 5 MG AT BEDTIME 05/23 2200 AC PO Omeprazole 40 MG BID 05/23 1011 AC 05/23 PO 1100 Ondansetron HCl 4 MG Q8P PRN 04/22 0600 AC IV Pantoprazole Sodium 40 MG Q5H 05/155 DC 05/23 Sodium Chloride 100 ML IV 0202 Total Parenteral 1 UNIT 05/23 AC Nutrition IV 05/24 1859 Total Parenteral 1 UNIT 05/22 DC 05/22 Nutrition IV 05/23 Results Last 24 Hrs of Labs/Mics: Laboratory Tests 05/23 0430 Chemistry Sodium (137 - 145 mmol/L) 131 L Potassium (3.5 - 5.1 mmol/L) 4.0 Chloride (98 - 107 mmol/L) 96 L Carbon Dioxide (22 - 30 mmol/L) 27 Anion Gap (5 - 16) 8 BUN (9 - 20 mg/dL) 26 H Creatinine (0.7 - 1.2 mg/dL) 0.7 Estimated GFR (>60 ml/min) > 60 Glucose (65 - 99 mg/dL) 137 H Calcium (8.4 - 10.2 mg/dL) 8.9 Phosphorus (2.5 - 4.5 mg/dL) 4.5 Magnesium (1.6 - 2.3 mg/dL) 1.9 Total Bilirubin (0.2 - 1.3 mg/dL) 1.6 H Direct Bilirubin (< 0.4 mg/dL) 0.6 H AST (17 - 59 U/L) 86 H ALT (21 - 72 U/L) 58 Alkaline Phosphatase (< 127 U/L) 116 Total Protein (6.3 - 8.2 g/dL) 5.7 L Albumin (3.5 - 5.0 g/dL) 2.4 L Lipase (23 - 300 U/L) 1998 H Hematology CBC w Diff NO MAN DIFF REQ WBC (4.8 - 10.8 /CUMM) 12.6 H RBC (4.70 - 6.10 /CUMM) 3.03 L Hgb (14.0 - 18.0 G/DL) 9.3 L Hct (42 - 52 %) 27.9 L MCV (80.0 - 94.0 FL) 92.3 MCH (27.0 - 31.0 PG) 30.9 RDW (11.5 - 14.5 %) 15.2 H Plt Count (130 - 400 /CUMM) 244 MPV (7.4 - 10.4 FL) 9.7 Gran % (42.2 - 75.2 %) 78.9 H Lymphocytes % (20.5 - 51.1 %) 10.0 L Monocytes % (1.7 - 9.3 %) 9.2 Eosinophils % (0 - 5 %) 1.6 Basophils % (0.0 - 2.0 %) 0.3 Absolute Granulocytes (1.4 - 6.5 /CUMM) 10.0 H Absolute Lymphocytes (1.2 - 3.4 /CUMM) 1.3 Absolute Monocytes (0.10 - 0.60 /CUMM) 1.2 H Absolute Eosinophils (0.0 - 0.7 /CUMM) 0.2 Absolute Basophils (0.0 - 0.2 /CUMM) 0 PUBS MCHC (33.0 - 37.0 G/DL) 33.4
[2016-05-24] VITALS: BP 144/80
--- NOTE | 2016-05-24 | NUR ---
PATIENT ALERT.ABLE TO MAKE NEEDS KNOWN WITH PASSE-TYRA VALVE ON TRACH. PATIENT SUCTIONED OF THIN WHITE SECRETIONS AFTER PATIENT C/O BEING UNCOMFORTABLE WITH HIS BREATHING. LUNG SOUNDS CLEAR.HAD RECENTLY AMBULATED TO BATHROOM WITHOUT DIFFICULTY.O2 SAT=96%.TRACH MASK APPLIED TO TRACH AT 28% FOR HUMIDITY BY RESPIRATORY THERAPST.REPOSITIONED FOR COMFORT WITH HEAD OF BED ELEVATED.
--- NOTE | 2016-05-24 05:46 | PN- General Surgery ---
Subjective Subjective: Patient resting comfortably in bed. Had right sided abdominal pain yesterday prompting a CT abd/pelvis revealing no acute findings for etiology of pain. Patient currently denies abdominal pain. Hungry. Just had BM (continues to receive lactulose). Voiding spontaneously. Afebrile overnight. No complaints of CP/SOB, N/V, F/C. Remains on TPN. Objective Vital Signs and I&Os Vital Signs Date Time Temp Pulse Resp B/P Pulse O2 O2 Flow FiO2 Ox Delivery Rate 05/24 0049 99 Trach Mask 28% 05/24 0000 99.0 96 18 144/80 93 Trach Mask 28% 05/24 0000 96 Trach Mask 28% 05/23 1705 94 Room Air Room Air 05/23 1600 Room Air 05/23 1600 98.0 80 20 140/70 96 Room Air 05/23 1027 94 Room Air 05/23 0800 Room Air 05/23 0800 97.0 100 18 146/80 95 Room Air Intake & Output 05/24 0800 05/24 0000 05/23 1600 05/23 0800 05/23 0000 05/22 1600 Intake Total 1779.4 2090.0 1142 1724.0 Output Total 500 200 510 Balance 1279.4 2090.0 942 1214.0 Intake, IV 288 1142 Intake, Lipid 145.4 274.0 150.4 Intake, Oral 800 650 Intake, 834 1528 833.6 TPN/PPN Intake, Tube 40 Feeding Intake, Tube 50 Irrigant Number 1 4 2 3 Bowel Movements Output, 110 Drainage Output, Urine 500 200 400 Patient 285 lb Weight Physical Exam: Gen: AAOx3 in NAD Cor: S1+S2+ Lungs: CTA grisel Abd: rotund, firm, NT, old drain sites with annie without drainage. Remaining L sided drain in place with minimal output. Ext: no edema or calf tenderness to grisel lower extremities. Feet warm. Results Recent Imaging Studies: EXAM TYPE: CAT - CT ABD & PELVIS W ORAL & IV CO EXAMINATION: CT ABDOMEN AND PELVIS WITH CONTRAST CLINICAL INFORMATION: Perforated duodenal ulcer. Status post repair. Elevated lipase levels. Evaluate for pancreatitis. COMPARISON: CT chest, abdomen and pelvis 05/12/2016. TECHNIQUE: Multidetector volumetric imaging was performed of the abdomen and pelvis before and after the IV administration of 94 mL of Optiray 320 intravenous contrast. Sagittal and coronal reformatted images were obtained on the technologist's workstation. DLP: 1453 mGy-cm. FINDINGS: LUNG BASES: Evaluation of the included lung bases demonstrates a trace right-sided pleural effusion. There is a partially visualized elongated opacity along the right major fissure measuring 1.6 cm, slightly less conspicuous relative to the prior examination. The heart is normal in size, without significant pericardial effusion. LIVER, GALLBLADDER, AND BILIARY TREE: Redemonstrated are postsurgical changes related to repair of a perforated duodenal ulcer. Previously noted periduodenal edema appears slightly improved relative to the prior exam. There is stable course and positioning of the percutaneous surgical drain, which is again visualized traversing the left lateral intra-abdominal wall and terminating within the inferior region of the gallbladder fossa. In comparison to the prior examination, there has been slight interval decrease in previously noted perihepatic ascites. The liver is again noted to be enlarged and is visualized measuring approximately 22 cm in length. The liver remains lobular in contour. No focal hepatic lesions are identified and there is no appreciable biliary ductal dilatation. The gallbladder is decompressed. Hyperdensity within the gallbladder lumen is nonspecific but could reflect biliary sludge. Gallbladder wall thickening is also entirely nonspecific and may represent mucosal edema of the gallbladder wall secondary to adjacent perihepatic ascites. No gallstones are identified. PANCREAS: No significant peripancreatic inflammatory changes or fluid collections. However, please note that lack of CT findings of acute pancreatitis does not exclude the diagnosis. SPLEEN: Mild splenomegaly, with the spleen visualized measuring approximately 17 cm in craniocaudal dimension, not significantly changed relative to the prior exam. ADRENAL GLANDS: Unremarkable. KIDNEYS AND URETERS: The kidneys are normal in size and enhance homogeneously, without focal lesions. There is no appreciable nephrolithiasis or hydroureteronephrosis of either kidney or renal collecting system. No ureteral stones are identified. BLADDER: Partially obscured secondary to streak artifact from total left hip arthroplasty. GASTROINTESTINAL TRACT: Oral contrast is visualized opacifying the stomach as well as the proximal duodenum and small bowel. There is no appreciable extravasation to suggest a small bowel leak. Contrast is also visualized opacifying the cecum and ascending colon as well as portions of the transverse colon. Abdominal and pelvic bowel loops are normal in caliber, without findings indicative of obstruction. Redemonstrated is scattered colonic diverticulosis, most extensive along the descending and rectosigmoid colon, without secondary signs of acute diverticulitis. There is a small amount of intra-abdominal ascites, notably within the right perihepatic region. The appendix is not clearly visualized on this examination. There are no extraluminal foci of air to suggest perforation. No organizing intra-abdominal or pelvic fluid collections are identified. ABDOMINAL WALL: Small fat-containing bilateral inguinal hernias. LYMPH NODES: Mildly prominent mesenteric lymph nodes, notably within the babak hepatis, likely reactive. No significant retroperitoneal or deep pelvic adenopathy. VASCULAR: Patent abdominal vasculature. Normal course and caliber of the abdominal aorta and its branching vessels, without aneurysmal dilatation. PELVIC VISCERA: Partially obscured secondary to streak artifact from total left hip arthroplasty. OSSEOUS STRUCTURES: As noted above, there is mechanical hardware related to total left hip arthroplasty. No acute osseous abnormality is identified. There are no visible destructive osseous lesions. IMPRESSION: 1. Stable postsurgical changes related to prior repair of a perforated duodenal ulcer. Previously noted periduodenal edema appears slightly improved relative to the prior examination. There is small volume perihepatic ascites. No organizing intra-abdominal or pelvic fluid collections are identified. No extraluminal foci of air to suggest perforation. 2. No significant peripancreatic inflammatory changes to suggest acute pancreatitis. However, please note that lack of CT findings of acute pancreatitis does not exclude the diagnosis. Clinical correlation is recommended. 3. Stable hepatosplenomegaly. 4. Hyperdense material within the gallbladder lumen is nonspecific but may reflect biliary sludge. Gallbladder wall thickening is also entirely nonspecific and may represent gallbladder wall edema given adjacent perihepatic ascites and periduodenal edema. No gallstones. 5. Scattered colonic diverticulosis, without secondary signs of acute diverticulitis. DICTATED BY: MAXIMILIANO GRIMM MD DATE/TIME DICTATED:05/23/161700 BUSINESS PROCESS CONSULTANT:STEF DATE/TIME TRANSCRIBED:05/23/161700 Assessment/Plan Assessment/Plan A: 51 year old male s/p laparoscopic em patch for a perforated duodenal ulceration with a prolonged hospital course due to encephalopathy, etoh cirrhosis, and malnutrition (on TPN). Patient continues on trach mask (28%) and is tolerating a pureed/thin liquid diet. Plan: Would continue pureed/thin liquid diet. Wean TPN if feasible. ?removal of trach- RNs state he has a great cough reflex and does not require frequent suctioning. Continue physical therapy/occupational therapy. Rajesh evaluation. General surgery team will discuss with on-call attending regarding backing out of remaining abdominal drain as there is minimal output. Care per primary team.
[2016-05-24 06:30] LABS: ABSOLUTE BASOPHIL COUNT 0 /CUMM (0.0-0.2); ABSOLUTE EOSINOPHIL COUNT 0.2 /CUMM (0.0-0.7); ABSOLUTE GRANULOCYTE CT 10.5 /CUMM (1.4-6.5); ABSOLUTE LYMPH COUNT 1.3 /CUMM (1.2-3.4); ABSOLUTE MONOCYTE COUNT 1.1 /CUMM (0.10-0.60); BASOPHIL % 0 % (0.0-2.0); EOSINOPHIL % 1.4 % (0-5); GRANULOCYTE % 79.8 % (42.2-75.2); HEMATOCRIT 28.3 % (42-52); MEAN CORPUSCULAR HGB 30.9 PG (27.0-31.0); MEAN CORPUSCULAR HGB CONC 33.8 G/DL (33.0-37.0); MEAN CORPUSCULAR VOLUME 91.4 FL (80.0-94.0); MEAN PLATELET VOLUME 9.6 FL (7.4-10.4); PLATELET COUNT 243 /CUMM (130-400); RBC DISTRIBUTION WIDTH 15.2 % (11.5-14.5); WHITE BLOOD CELL COUNT 13.1 /CUMM (4.8-10.8)
[2016-05-24 08:00] VITALS: BP 130/72
--- NOTE | 2016-05-24 10:21 | PN- Pulmonary ---
Subjective HPI/Critical Care Issues: The patient is awake and alert. His appetite is slowly improving. He remains on TPN. He no longer has abdominal pain. Last night, he had difficulty with coughing however this improved with humidification of his trach. Objective Current Medications: Current Medications Sig/Roberto Start time Last Medication Dose Route Stop Time Status Admin Acetaminophen 650 MG ONCE ONE 05/23 1200 DC 05/23 PO 05/23 1201 1353 Albuterol Sulfate 3 ML BID 05/23 1000 AC 05/23 INH 1025 Fat Emulsion 450 ML 1900 05/23 1900 DC 05/23 Intravenous IV 05/24 185 1948 Fat Emulsion 450 ML 1900 05/22 1900 DC 05/22 Intravenous IV 05/23 Fentanyl Citrate 25 MCG Q2 PRN 05/17 1200 AC 05/19 IV 2329 Heparin Sodium 5,000 UNIT Q8 05/23 1400 AC 05/24 (Porcine) SC 0546 Insulin Aspart 0 Q6 05/22 2359 AC 05/24 SC 0557 Lactulose 20 GM BID 05/16 2200 AC 05/23 PO 2317 Lorazepam 1 MG Q8P PRN 05/19 0815 AC 05/19 IV 1017 Melatonin 5 MG AT BEDTIME 05/23 2200 AC 05/23 PO 2318 Omeprazole 40 MG BID 05/23 1011 AC 05/23 PO 2318 Ondansetron HCl 4 MG Q8P PRN 04/22 0600 AC IV Total Parenteral 1 UNIT 1900 05/23 1900 AC 05/23 Nutrition IV 05/24 1859 1948 Total Parenteral 1 UNIT 1900 05/22 1900 DC 05/22 Nutrition IV 05/23 Vital Signs & I&O Last 24 Hrs of Vitals and I&O: Vital Signs Date Time Temp Pulse Resp B/P Pulse O2 O2 Flow FiO2 Ox Delivery Rate 05/24 0800 99 Trach Mask 28% 05/24 0800 97.9 96 18 130/72 99 Trach Mask 28% 05/24 0549 Trach Mask 28% 05/24 0049 99 Trach Mask 28% 05/24 0000 99.0 96 18 144/80 93 Trach Mask 28% 05/24 0000 96 Trach Mask 28% 05/23 1705 94 Room Air Room Air 05/23 1600 Room Air 05/23 1600 98.0 80 20 140/70 96 Room Air 05/23 1027 94 Room Air Intake & Output 05/24 1600 05/24 0800 05/24 0000 Intake Total 590.0 Output Total 100 Balance 490.0 Intake, Lipid 120.0 Intake, Oral 220 Intake, 250 TPN/PPN Number 1 Bowel Movements Output, Urine 100 Exam General Appearance: awake, comfortable Head: atraumatic Neck: supple, trach in place Respiratory: no respiratory distress, clear anteriorly, lungs expand symmetrically, trachea midline Cardiovascular: regular rate/rhythm, tachycardia, S1 and S2 heard Abdomen: CONNIE drains in place, NG tube has clear drainage Extremities: warm and dry Skin: no cyanosis or edema Results Last 24 Hrs of Lab Results: Laboratory Tests 05/24/16 0530: Anion Gap 8, Estimated GFR > 60, Glucose 141 H, Calcium 9.1, Phosphorus 4.8 H, Magnesium 2.0, Total Bilirubin 1.7 H, Direct Bilirubin 0.7 H, AST 67 H, ALT 54, Alkaline Phosphatase 122, Total Protein 6.1 L, Albumin 2.6 L, Lipase 1996 H, CBC w Diff NO MAN DIFF REQ, RBC 3.10 L, MCV 91.4, MCH 30.9, RDW 15.2 H, MPV 9.6, Gran % 79.8 H, Lymphocytes % 10.1 L, Monocytes % 8.7, Eosinophils % 1.4, Basophils % 0 L, Absolute Granulocytes 10.5 H, Absolute Lymphocytes 1.3, Absolute Monocytes 1.1 H, Absolute Eosinophils 0.2, Absolute Basophils 0, PUBS MCHC 33.8 Impression/Plan Impression/Plan Impression/Plan: 1. S/p laparoscopic Clint patch for perforated duodenal ulcer with peritonitis and fistula. 2. Respiratory failure s/p tracheostomy placement. Improved. 3. Resolved acute anemia with bleeding secondary to NG tube trauma. 4. Encephalopathy - significantly improved overall. 5. Fever, cultures negative, now being observed off antibiotics. 6. 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 7. Severe malnutrition - on TPN, appetite improving. 8. Elevated lipase, secondary to lipids? Recommendations: * Monitor off antibiotics per ID. * Continue TPN pending improved nutrition. * Continue oral feeds. * Continue DVT and GI prophylaxis. * Skin care protocol to continue. * PT and OT to continue. * The patient has been accepted at [facility]. * Management of drains as per surgery. * SQ heparin for DVT prophylaxis. Will monitor platelet count. * Do not order labs for tomorrow. * Continue all supportive care.
--- NOTE | 2016-05-24 14:15 | PN- Resident CRCU ---
Subjective HPI/CRCU Issues: Patient seen and examined. He is seen lying flat in bed receiving a breathing treatment via tracheostomy surrounded by friends and family. Presently he has no complaints and admits that his abdominal pain has all but improved. He tolerated his breakfast well eating all but his Glucerna supplement and his yogurt. Additionally he denies any headache, fever, chills, chest pain, palpitations, shortness of breath, nausea, vomiting, diarrhea. No overnight events reported. Objective Vital Signs & I&O Last 8 Hrs of Vitals and I&O: Vitals: - Temperature: 97.9-99.0 - Heart Rate: 96 - Respiratory Rate: 18 - Systolic Blood pressure: 130-144 - Diastolic Blood pressure: 72-80 - Oxygen Saturation: 93-99% via tracheostomy Exam General Appearance: well developed/nourished, no apparent distress, alert, awake , comfortable, obese Other Physical Findings: General -well-developed, well-nourished obese male in no acute distress HEENT - NCAT, PERRL, EOMI, anicteric sclera, tracheostomy in place, proline in place Cardio - S1, S2 w/o murmurs/gallops/rubs Resp - CTA bilaterally w/o wheezing/rhochi/crackles GI -soft, obese, nontender, nondistended, bowel sounds present, CONNIE line in place Neuro - Awake and alert, CN II - XII grossly intact Weaning Parameters NIF: 39 Minute Volume: 14.0 Resp rate: 23 Vt: 588 Heart Rate: 90 Weaning Schedule Start Time: 0933 Minute Volume: 13 Resp Rate: 25 Vt: 557 Heart Rate: 90 End Time: 1105 Minute Volume: 15 Resp Rate: 20 Vt: 680 Heart Rate: 100 Start Time: 1345 Resp Rate: 24 Heart Rate: 113 Current Medications: Current Medications Sig/Roberto Start time Last Medication Dose Route Stop Time Status Admin Albuterol Sulfate 3 ML BID 05/23 1000 AC 05/24 INH 1036 Fat Emulsion 450 ML 1900 05/24 190 AC Intravenous IV 05/25 1858 Fat Emulsion 450 ML 1900 05/23 1900 DC 05/23 Intravenous IV 05/24 Fat Emulsion 450 ML 1900 05/22 190 DC 05/22 Intravenous IV 05/23 Fentanyl Citrate 25 MCG Q2 PRN 05/17 1200 AC 05/19 IV 2329 Heparin Sodium 5,000 UNIT Q8 05/23 1400 AC 05/24 (Porcine) SC 0546 Insulin Aspart 0 Q6 05/22 2359 AC 05/24 SC 1244 Lactulose 20 GM BID 05/16 2200 AC 05/24 PO 1024 Lorazepam 1 MG Q8P PRN 05/19 0815 AC 05/19 IV 1017 Melatonin 5 MG AT BEDTIME 05/23 2200 AC 05/23 PO 2318 Omeprazole 40 MG BID 05/23 1011 AC 05/24 PO 1024 Ondansetron HCl 4 MG Q8P PRN 04/22 0600 AC IV Total Parenteral 1 UNIT 1900 05/24 1900 AC Nutrition IV 05/25 185 Total Parenteral 1 UNIT 1900 05/23 1900 AC 05/23 Nutrition IV 05/24 185 194 Total Parenteral 1 UNIT 1900 05/22 1900 DC 05/22 Nutrition IV 05/23 Impression/Plan Impression/Problem List Impression: He continues to tolerate his diet well without any persistent abdominal pain or nausea. He was accepted to [facility] with a anticipated discharge date of Thursday of next week. He is aware that he is to follow-up with IOP after discharge from rehabilitation and has the contact information to set up an appointment. Labs will not be obtained tomorrow as patient is medically stable. Lipids were discontinued and TPN will start to be tapered in the coming days. Problem list: -Duodenal ulcer perforation status post surgical repair -Sepsis, now resolved -Delirium, now resolved -History of alcohol abuse Gastrointestinal: Patient admitted for perforated duodenal ulcer complicated with peritonitis. Currently status post status post surgical repair. -CONNIE tubes #[address] -Consistent carbohydrate diet with Puree/thin -TPN nutrition to be continued , soon to be tapered, lipids discontinued -Calorie counts -Omeprazole 40mg PO BID today -Lactulose 20 g NG a day -Surgery consult following -GI consult following Infectious disease: Patient had intermittent spikes in temperature for which meropenem was prescribed for a total of 23 days in 3 different intervals. Meropenem was discontinued on 05/20/16 as patient had improved leukocytosis and remained afebrile for some time now any obvious sign of infection. -Infectious disease consult following Respiratory-tracheostomy in place with adequate oxygen saturation Cardiovascular - history of HTN, HLD, no active problems, continue telemetry Hematology- stable hemoglobin/hemocrit, daily CBC Diet- Consistent carbohydrate 3 started (puree/thin) DVT prophylaxis-subcutaneous heparin CODE STATUS-full code Problem List: 1. Perforation bowel Pain Ratin Tomorrow's Labs & Rationales: None Plan DVT/Prophylaxis: mechanical Code Status: Full Code
--- NOTE | 2016-05-24 14:52 | PN- Infect Dx ---
Subjective Subjective: Afebrile without complaints at present. He apparently complained of right lower quadrant pain yesterday and had one liquid bowel movement reported this morning. Objective Last 24 Hrs of Vital Signs/I&O Vital Signs Date Time Temp Pulse Resp B/P Pulse O2 O2 Flow FiO2 Ox Delivery Rate 05/24 1039 99 Trach Mask 28% 05/24 08 99 Trach Mask 28% 05/24 08 97.9 96 18 130/72 99 Trach Mask 28% 05/24 0549 Trach Mask 28% 05/24 0049 99 Trach Mask 28% 05/24 0000 99.0 96 18 144/80 93 Trach Mask 28% 05/24 0000 96 Trach Mask 28% 05/23 1705 94 Room Air Room Air 05/23 1600 Room Air 05/23 1600 98.0 80 20 140/70 96 Room Air Intake & Output 05/24 1600 05/24 0800 05/24 0000 Intake Total 590.0 Output Total 100 Balance 490.0 Intake, Lipid 120.0 Intake, Oral 220 Intake, 250 TPN/PPN Number 1 Bowel Movements Output, Urine 100 Physical Exam Other Physical Findings: He appears comfortable in no acute distress Neck trach site with no inflammation Chest Pro-Line catheter in the right upper chest with no inflammation at the site Lungs are clear Heart regular rhythm with no murmur Abdomen is soft, nontender with positive bowel sounds; drain # [address], with no output Extremities no cyanosis, clubbing or edema Results Last 24 Hours of Lab Results: Laboratory Tests 05/24 530 Chemistry Sodium (137 - 145 mmol/L) 130 L Potassium (3.5 - 5.1 mmol/L) 4.0 Chloride (98 - 107 mmol/L) 95 L Carbon Dioxide (22 - 30 mmol/L) 28 Anion Gap (5 - 16) 8 BUN (9 - 20 mg/dL) 23 H Creatinine (0.7 - 1.2 mg/dL) 0.7 Estimated GFR (>60 ml/min) > 60 Glucose (65 - 99 mg/dL) 141 H Calcium (8.4 - 10.2 mg/dL) 9.1 Phosphorus (2.5 - 4.5 mg/dL) 4.8 H Magnesium (1.6 - 2.3 mg/dL) 2.0 Total Bilirubin (0.2 - 1.3 mg/dL) 1.7 H Direct Bilirubin (< 0.4 mg/dL) 0.7 H AST (17 - 59 U/L) 67 H ALT (21 - 72 U/L) 54 Alkaline Phosphatase (< 127 U/L) 122 Total Protein (6.3 - 8.2 g/dL) 6.1 L Albumin (3.5 - 5.0 g/dL) 2.6 L Lipase (23 - 300 U/L) 1996 H Hematology CBC w Diff NO MAN DIFF REQ WBC (4.8 - 10.8 /CUMM) 13.1 H RBC (4.70 - 6.10 /CUMM) 3.10 L Hgb (14.0 - 18.0 G/DL) 9.6 L Hct (42 - 52 %) 28.3 L MCV (80.0 - 94.0 FL) 91.4 MCH (27.0 - 31.0 PG) 30.9 RDW (11.5 - 14.5 %) 15.2 H Plt Count (130 - 400 /CUMM) 243 MPV (7.4 - 10.4 FL) 9.6 Gran % (42.2 - 75.2 %) 79.8 H Lymphocytes % (20.5 - 51.1 %) 10.1 L Monocytes % (1.7 - 9.3 %) 8.7 Eosinophils % (0 - 5 %) 1.4 Basophils % (0.0 - 2.0 %) 0 L Absolute Granulocytes (1.4 - 6.5 /CUMM) 10.5 H Absolute Lymphocytes (1.2 - 3.4 /CUMM) 1.3 Absolute Monocytes (0.10 - 0.60 /CUMM) 1.1 H Absolute Eosinophils (0.0 - 0.7 /CUMM) 0.2 Absolute Basophils (0.0 - 0.2 /CUMM) 0 PUBS MCHC (33.0 - 37.0 G/DL) 33.8 Last 24 Hours of Garcia Results: No recent cultures Recent Imaging Studies: CT of the abdomen and pelvis May 23 reveals no organizing intra-abdominal pelvic fluid collections and no extraluminal foci of air to suggest perforation; no significant peripancreatic inflammatory changes to suggest acute pancreatitis ; nonspecific hyperdense material within the gallbladder lumen Assessment/Plan Impression: Continues to improve with temperatures remaining normal off antibiotics now 32 days status post laparoscopic Clint plication. His white blood cell count continues to increase slightly, of unclear significance, with recent CT scan negative for any obvious source of infection. His lipase remains elevated, though not significantly changed from yesterday, with the recent CT scan negative for any pancreatic findings, but with gallbladder wall thickening and the possibility of biliary sludge, of unclear significance, particular as he is tolerating a diet. He did have a liquid bowel movements this morning, and C. difficile should be ruled out. Suggestion: 1. Stool for C. difficile 2. Continue to follow temperatures and white blood cell count off antibiotics pending above
[2016-05-24 16:00] VITALS: BP 154/82
--- NOTE | 2016-05-24 18:20 | NUR ---
PT WAS COUGHING WHILE BEING TRACHEALLY SUCTIONED BY SPONGE MAKER AND VOMITED A SMALL AMOUNT OF WHITE FLUID=-MOST PROBABLY POTATO JACKLYN SOUP PT HAD CONSUMED. PT OFFERS NO C/O. C.DIFF ORDERED-HAT PLACED IN TOILET TO OBTAIN SAMPLE.
[2016-05-24 23:00] VITALS: BP 142/78
--- NOTE | 2016-05-25 06:30 | PN- General Surgery ---
Subjective Subjective: Awake, alert Tolerating ada diet without difficulty No abdominal pain or nausea, +bm Objective Vital Signs and I&Os Vital Signs Date Time Temp Pulse Resp B/P Pulse O2 O2 Flow FiO2 Ox Delivery Rate 05/25 0000 97 Trach Mask 28% 05/24 2300 99.6 96 20 142/78 98 Trach Mask 28% 05/24 1853 99 Trach Mask 28% 05/24 1600 93 Room Air Room Air 05/24 1600 98.3 96 20 154/82 93 Room Air Room Air 05/24 1039 99 Trach Mask 28% 05/24 08 99 Trach Mask 28% 05/24 08 97.9 96 18 130/72 99 Trach Mask 28% Intake & Output 05/25 0800 05/25 0000 05/24 1600 05/24 0800 05/24 0000 05/23 1600 Intake Total 1529.0 1215.0 590.0 1779.4 Output Total 400 10 100 500 Balance 1129.0 1205.0 490.0 1279.4 Intake, Lipid 141.0 155.0 120.0 145.4 Intake, Oral 600 200 220 800 Intake, 788 860 250 834 TPN/PPN Number 1 2 1 4 Bowel Movements Output, 10 Drainage Output, Urine 400 100 500 Physical Exam: vss, afebrile Abd: soft, good bs, MICHELINE with serous drainage - minimal output Wounds: annie at old micheline sites - mild erythema, no drainage, other wounds healed and annie have been removed Assessment/Plan Assessment/Plan 51 year old male s/p laparoscopic em patch for a perforated duodenal ulceration with a prolonged hospital course due to encephalopathy, etoh cirrhosis, and malnutrition (on TPN). Patient continues on trach mask (28%) and is tolerating a diet. From a surgical standpoint, he is progressing well, abdomen is benign, we will be inching the drain out later this week. All other plans per medical team
[2016-05-25 08:00] VITALS: BP 120/80
--- NOTE | 2016-05-25 08:04 | PN- Resident CRCU ---
Subjective HPI/CRCU Issues: Patient seen and examined. He is seen lying flat in bed receiving a breathing treatment via tracheostomy. Reports insomnia thinking many issues regarding his health. Concerned regarding discharge. Otherwise feels much better, no abdominal pain, reports 2-3 loose BM per day. However it is getting better compared to past. Additionally he denies any headache, fever, chills, chest pain, palpitations, shortness of breath, nausea, vomiting, diarrhea. No overnight events reported. Objective Vital Signs & I&O Last 8 Hrs of Vitals and I&O: Intake & Output 05/25 1600 Intake Total 1581.0 Output Total 580 Balance 1001.0 Intake, IV 0 Intake, Lipid 148.0 Intake, Oral 600 Intake, 833 TPN/PPN Number 4 Bowel Movements Output, 0 Drainage Output, Urine 580 Vitals: - Afebrile - Heart Rate: high 90's - Respiratory Rate: 18 - Systolic Blood pressure: 130-144 - Diastolic Blood pressure: 72-80 - Oxygen Saturation: 93-99% via tracheostomy Exam General Appearance: well developed/nourished, no apparent distress, alert, awake , comfortable Head: atraumatic, normal appearance Ears, Nose, Throat: normal pharynx, normal ENT inspection, tracheostomy tube in place Neck: normal inspection, supple Respiratory: normal breath sounds, chest non-tender, no respiratory distress Cardiovascular: regular rate/rhythm, normal peripheral pulses Gastrointestinal: normal bowel sounds, soft, non-tender, Jessica line in place Extremities: normal inspection, normal capillary refill Cranial Nerves: normal hearing, normal speech, PERRL Skin: intact Central Line Site: right IJ Need for Catheter: TPN IV (Peripheral) Still Needed? Yes Current Medications: Current Medications Sig/Roberto Start time Last Medication Dose Route Stop Time Status Admin Albuterol Sulfate 3 ML BID 05/23 1000 AC 05/25 INH 1022 Fat Emulsion 450 ML 1900 05/24 1900 AC 05/24 Intravenous IV 05/25 1859 1827 Fentanyl Citrate 25 MCG Q2 PRN 05/17 1200 AC 05/19 IV 2329 Heparin Sodium 5,000 UNIT Q8 05/23 1400 AC 05/25 (Porcine) SC 1346 Insulin Aspart 0 Q6 05/22 2359 AC 05/25 SC 1204 Lactulose 20 GM BID 05/16 2200 AC 05/25 PO 0917 Lorazepam 1 MG Q8P PRN 05/19 0815 AC 05/19 IV 1017 Melatonin 5 MG AT BEDTIME 05/23 2200 AC 05/24 PO 2152 Metronidazole 500 MG IQ8 05/25 1600 AC 05/25 N/A 1 UNIT IV 1605 Omeprazole 40 MG BID 05/23 1011 AC 05/25 PO 0917 Ondansetron HCl 4 MG Q8P PRN 04/22 0600 AC IV Total Parenteral 1 UNIT 19005/25 1900 CAN Nutrition IV 05/26 185 Total Parenteral 1 UNIT 19005/25 1900 AC Nutrition IV 05/26 185 Total Parenteral 1 UNIT 19005/24 1900 DC 05/24 Nutrition IV 05/25 185 1827 Total Parenteral 1 UNIT 05/23 190 DC 05/23 Nutrition IV 05/24 1859 194 Impression/Plan Impression/Problem List Impression: Patient continues to have slow falls and his hemoglobin concentration on blood count monitoring. Ativan drip will continue to be weaned in addition to propofol being discontinued later today. PICC line and Ann catheter were removed yesterday. Down to the IR suite today for a fluoroscopic procedure to manually advanced the nasal jejunal tube to the appropriate area, which was reportedly successful with no complications. The tube was apparently embedded in the mucosal wall which may have been the source of the slow upper GI bleed. Nutrition services was contacted regarding starting enteric tube feeds and preliminary recommendations were made over the phone with a formal consult being placed in the morning. TPN is slowly tapered off white to feedings started today Gastrointestinal: Patient admitted for perforated duodenal ulcer complicated with peritonitis. Currently S/P surgical repair. * JESSICA tubes #[address] * Consistent carbohydrate diet with Puree/thin * TPN nutrition to be continued , soon to be tapered, lipids discontinued * Omeprazole 40mg PO BID today * Lactulose 20 g NG a day * Surgery consult following * GI consult following * Today found to have C.Diff positive started on Metrogyl IV 500mg Q8 Infectious disease: Patient had intermittent spikes in temperature for which meropenem was prescribed for a total of 23 days in 3 different intervals. Meropenem was discontinued on 05/20/16 as patient had improved leukocytosis and remained afebrile for some time now any obvious sign of infection. * today stool C.diff was positive started on metrogyl * white count increasing everyday - If still increases upon this antibiotic consider vancomycin * Patient had 5 loose BM today with abdominal pain, AXR was normal without any acute changes compared to 23 of may. Respiratory-tracheostomy in place with adequate oxygen saturation Cardiovascular - history of HTN, HLD, no active problems, continue telemetry Hematology- stable hemoglobin/hemocrit, daily CBC Diet- Consistent carbohydrate 3 started (puree/thin) Problem List: 1. Duodenal bulb ulcer perforation 2. Sepsis Pain Ratin Tomorrow's Labs & Rationales: ICU bundle cbc Plan DVT/Prophylaxis: mechanical Code Status: Full Code
--- NOTE | 2016-05-25 09:28 | PN- Pulmonary ---
Subjective HPI/Critical Care Issues: The patient is awake and alert. He reports having difficulty sleeping, however the overall trend has improved. He denies any new complaints today. He specifically denies any abdominal pain, nausea, vomiting or shortness of breath. He continues to have the Passy-Caterina valve) and is talking well. There is minimal drainage from the CONNIE drain. The patient's MAXIMUM TEMPERATURE is 99.6. Objective Current Medications: Current Medications Sig/Roberto Start time Last Medication Dose Route Stop Time Status Admin Albuterol Sulfate 3 ML BID 05/23 1000 AC 05/24 INH 1849 Fat Emulsion 450 ML 1900 05/24 1900 AC 05/24 Intravenous IV 05/25 185 182 Fat Emulsion 450 ML 1900 05/23 1900 DC 05/23 Intravenous IV 05/24 1859 194 Fentanyl Citrate 25 MCG Q2 PRN 05/17 1200 AC 05/19 IV 2329 Heparin Sodium 5,000 UNIT Q8 05/23 1400 AC 05/25 (Porcine) SC 0623 Insulin Aspart 0 Q6 05/22 2359 AC 05/25 SC 0623 Lactulose 20 GM BID 05/16 2200 AC 05/25 PO 0917 Lorazepam 1 MG Q8P PRN 05/19 0815 AC 05/19 IV 1017 Melatonin 5 MG AT BEDTIME 05/23 2200 AC 05/24 PO 2152 Omeprazole 40 MG BID 05/23 1011 AC 05/25 PO 0917 Ondansetron HCl 4 MG Q8P PRN 04/22 0600 AC IV Total Parenteral 1 UNIT 1900 05/24 1900 AC 05/24 Nutrition IV 05/25 185 182 Total Parenteral 1 UNIT 1900 05/23 1900 DC 05/23 Nutrition IV 05/24 1859 194 Vital Signs & I&O Last 24 Hrs of Vitals and I&O: Vital Signs Date Time Temp Pulse Resp B/P Pulse O2 O2 Flow FiO2 Ox Delivery Rate 05/25 799 97.6 83 20 120/80 Trach Mask 28% 05/25 08 99 Trach Mask 28% 05/25 0000 97 Trach Mask 28% 05/240 99.6 96 20 142/78 98 Trach Mask 28% 05/24 1853 99 Trach Mask 28% 05/24 1600 93 Room Air Room Air 05/24 1600 98.3 96 20 154/82 93 Room Air Room Air 05/24 1039 99 Trach Mask 28% Intake & Output 05/25 1600 05/25 0800 05/25 0000 Intake Total 1476.0 1529.0 Output Total 400 Balance 1476.0 1129.0 Intake, Lipid 189.0 141.0 Intake, Oral 400 600 Intake, 887 788 TPN/PPN Number 4 1 Bowel Movements Output, Urine 400 Exam General Appearance: awake, comfortable Head: atraumatic Neck: supple, trach in place Respiratory: no respiratory distress, clear anteriorly, lungs expand symmetrically, trachea midline Cardiovascular: regular rate/rhythm, tachycardia, S1 and S2 heard Abdomen: CONNIE drains in place, NG tube has clear drainage Extremities: warm and dry Skin: no cyanosis or edema Impression/Plan Impression/Plan Impression/Plan: 1. S/p laparoscopic Clint patch for perforated duodenal ulcer with peritonitis and fistula. 2. Respiratory failure s/p tracheostomy placement. Improved. 3. Resolved acute anemia with bleeding secondary to NG tube trauma. 4. Encephalopathy - significantly improved overall. 5. Fever, cultures negative, now being observed off antibiotics. 6. 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 7. Severe malnutrition - on TPN, appetite improving. 8. Elevated lipase, secondary to lipids? Recommendations: * Monitor off antibiotics. * Continue TPN pending improved nutrition. * Continue oral feeds. * Continue DVT and GI prophylaxis. * Skin care protocol to continue. * PT and OT to continue. * The patient has been accepted at [facility]. * Management of drains as per surgery. * SQ heparin for DVT prophylaxis. Will monitor platelet count. * Check labs tomorrow (CBC and ICU bundle). * Continue all supportive care.
[2016-05-25 16:00] VITALS: BP 126/78
--- NOTE | 2016-05-25 17:44 | RADIOLOGY REPORT ---
EXAMINATION: XR ABDOMEN CLINICAL INDICATION: Clostridium difficile infection. Abdominal pain, distention and watery bowel movements. Evaluate for bowel distention and toxic megacolon. COMPARISON: CT of abdomen pelvis, 05/23/2016. TECHNIQUE: Abdomen, AP view (KUB), portable exam FINDINGS: Drainage catheter within the upper abdomen, its tip in the region of the gallbladder fossa and undersurface of the right hepatic lobe. The visualized loops of bowel are normal in size. Small bowel measures up to approximately 2.8 cm. No evidence of colonic dilatation, pneumatosis intestinalis or overt pneumoperitoneum. Skin annie project over the mid abdomen. The visualized components of a left total hip arthroplasty are intact. IMPRESSION: No acute findings in the abdomen compared to the recent CT of 05/23/2016. No evidence of bowel obstruction or toxic megacolon.
--- NOTE | 2016-05-25 18:57 | NUR ---
RECEIVED PATIENT AT 1500: Alert & oriented x 3. Gen med status. VSS. Patient is tolerating a diet well but complaining that abdomen is getting more bloated/distended. Informed Dr. Soriano. Bedside Abdomen flat plate XRAY completed and found to be negative. Patient aware and relieved. Continuing to provide reassurance and support.
[2016-05-26] VITALS: BP 122/74
--- NOTE | 2016-05-26 05:54 | PN- General Surgery ---
Subjective Subjective: The patient was seen this morning. He was resting comfortable but expressed some anxiety with regards to his discharge planning. There are no other issues overnight reported that his pain is under adequate control. He is tolerating a regular diet without issue and having frequent bowel movements. He was found to be C. difficile positive and currently on antibiotics. Objective Vital Signs and I&Os Vital Signs Date Time Temp Pulse Resp B/P Pulse O2 O2 Flow FiO2 Ox Delivery Rate 05/26 0354 Trach Mask 28% 05/26 0000 97 Trach Mask 28% 05/26 0000 98.0 74 22 122/74 97 Trach Mask 28% 05/25 1922 96 Trach Mask 28% 05/25 1600 97 Room Air 05/25 1600 99.1 78 18 126/78 98 Room Air Room Air 05/25 1027 98 Trach Mask 28% 05/25 08 97.6 83 20 120/80 Trach Mask 28% 05/25 08 99 Trach Mask 28% Intake & Output 05/26 0800 05/26 0000 05/25 1600 05/25 0805/25 0000 05/24 1600 Intake Total 1432 1581.0 1476.0 1529.0 1215.0 Output Total 600 580 400 10 Balance 832 1001.0 1476.0 1129.0 1205.0 Intake, IV 0 Intake, Lipid 148.0 189.0 141.0 155.0 Intake, Oral 600 600 400 600 200 Intake, 832 833 887 788 860 TPN/PPN Number 3 4 4 1 2 Bowel Movements Output, 0 10 Drainage Output, Urine 600 580 400 Physical Exam: Gen.: Alert and obvious distress Skin: Warm and dry Abdomen:, Obese, nontender, bowel sounds positive. Port sites with mild surrounding erythema but without obvious signs of infection. His CONNIE 1 holding suction with bilious color drainage in the collection bulb. Extremities: Bilateral lower extremities are warm without calf tenderness but are edematous. Assessment/Plan Assessment/Plan Assessment: 51-year-old male status post Clint patch repair of perforated. She has had a prolonged complicated postoperative course but has made slow improvement. He is currently tolerating a regular diet without issue and his pain is under adequate control. Recommendation: Follow-up morning laboratory studies Wean TPN and expectation of possible discharge in the next few days Out of bed and work with physical therapy Tight glycemic control Continue current pain regiment Keep CONNIE to self suction Total respiratory care with trach maintenance GI and DVT prophylaxis Continue care per primary team in consultation recommendations
[2016-05-26 06:10] LABS: ABSOLUTE BASOPHIL COUNT 0 /CUMM (0.0-0.2); ABSOLUTE EOSINOPHIL COUNT 0.2 /CUMM (0.0-0.7); ABSOLUTE GRANULOCYTE CT 7.5 /CUMM (1.4-6.5); ABSOLUTE MONOCYTE COUNT 0.9 /CUMM (0.10-0.60); BASOPHIL % 0.1 % (0.0-2.0); EOSINOPHIL % 2.5 % (0-5); GRANULOCYTE % 77.6 % (42.2-75.2); HEMATOCRIT 26.3 % (42-52); MEAN CORPUSCULAR HGB 30.9 PG (27.0-31.0); MEAN CORPUSCULAR HGB CONC 33.7 G/DL (33.0-37.0); MEAN CORPUSCULAR VOLUME 91.6 FL (80.0-94.0); MEAN PLATELET VOLUME 9.3 FL (7.4-10.4); PLATELET COUNT 199 /CUMM (130-400); RBC DISTRIBUTION WIDTH 15.5 % (11.5-14.5); RED BLOOD CELL CT 2.87 /CUMM (4.70-6.10); WHITE BLOOD CELL COUNT 9.7 /CUMM (4.8-10.8)
[2016-05-26 08:00] VITALS: BP 124/80
--- NOTE | 2016-05-26 08:47 | NUR ---
RT PAGED TO CHANGE TRACH MASK AND STRAP; REPORTED TO DR. PANDEY AND DR. PACE RHONCMatthew LUNG SOUNDS, B/L LE EDEMA, SUTURES NOT INTACT AT L CONNIE SITE, LIGHT GREEN COLOR IN CONNIE TUBING ONLY DROPS OF OUTPUT IN BULB; WILL CONTINUE TO MONITOR
--- NOTE | 2016-05-26 08:51 | PN- Pulmonary ---
Subjective HPI/Critical Care Issues: The patient is awake and alert. He continues to have some difficulty with sleeping. He continues to have ongoing diarrhea. He is now on treatment for C. difficile colitis. He had an abdominal x-ray that showed no evidence of obstruction or toxic megacolon. He remains mechanically stable. His MAXIMUM TEMPERATURE is 99.6. Objective Current Medications: Current Medications Sig/Roberto Start time Last Medication Dose Route Stop Time Status Admin Albuterol Sulfate 3 ML BID 05/23 1000 AC 05/25 INH 1916 Fat Emulsion [place] [address]/24 190 DC 05/24 Intravenous IV 05/25 185 182 Fentanyl Citrate 25 MCG Q2 PRN 05/17 1200 AC 05/19 IV 2329 Furosemide 20 MG ONCE ONE 05/26 0845 AC IV 05/26 0846 Heparin Sodium 5,000 UNIT Q8 05/23 1400 AC 05/26 (Porcine) SC 0540 Insulin Aspart 0 Q6 05/22 2359 AC 05/26 SC 0610 Lactobacillus 1 CAP DAILY 05/25 1909 AC 05/25 Acidophilus PO 2001 Lactulose 20 GM BID 05/16 2200 AC 05/25 PO 0917 Lorazepam 1 MG ONE ONE 05/26 0045 DC 05/26 PO 05/26 0046 0038 Lorazepam 1 MG Q8P PRN 05/19 0815 DC 05/19 IV 1017 Melatonin 5 MG AT BEDTIME 05/23 2200 AC 05/25 PO 2209 Metronidazole 500 MG IQ8 05/25 1600 AC 05/26 N/A 1 UNIT IV 0754 Omeprazole 40 MG BID 05/23 1011 AC 05/25 PO 2209 Ondansetron HCl 4 MG Q8P PRN 04/22 0600 IV Patient Medication 1 UNIT ONE NR 05/26 0845 Teaching ED 05/26 1445 Total Parenteral 1 UNIT 1900 05/25 190 CAN Nutrition IV 05/26 1859 Total Parenteral 1 UNIT 1900 05/25 190 AC 05/25 Nutrition IV 05/26 185 1839 Total Parenteral 1 UNIT 05/24 190 DC 05/24 Nutrition IV 05/25 185 1827 Vital Signs & I&O Last 24 Hrs of Vitals and I&O: Vital Signs Date Time Temp Pulse Resp B/P Pulse O2 O2 Flow FiO2 Ox Delivery Rate 05/26 0354 Trach Mask 28% 05/26 0000 97 Trach Mask 28% 05/26 0000 98.0 74 22 122/74 97 Trach Mask 28% 05/25 1922 96 Trach Mask 28% 05/25 1600 97 Room Air 05/25 1600 99.1 78 18 126/78 98 Room Air Room Air 05/25 1027 98 Trach Mask 28% Intake & Output 05/26 1600 05/26 0800 05/26 0000 Intake Total 952 1432 Output Total 350 600 Balance 602 832 Intake, Oral 120 600 Intake, 832 832 TPN/PPN Number 6 3 Bowel Movements Output, Urine 350 600 Exam General Appearance: awake, comfortable Head: atraumatic Neck: supple, trach in place Respiratory: no respiratory distress, clear anteriorly, lungs expand symmetrically, trachea midline Cardiovascular: regular rate/rhythm, tachycardia, S1 and S2 heard Abdomen: distended, BS + Extremities: warm and dry Skin: new 1+ peripheral edema Results Last 24 Hrs of Lab Results: Laboratory Tests 05/26/16 0555: Anion Gap 9, Estimated GFR > 60, Glucose 166 H, Calcium 9.3, Phosphorus 4.4, Magnesium 2.1, Total Bilirubin 1.9 H, AST 79 H, ALT 60, Albumin 2.8 L, CBC w Diff NO MAN DIFF REQ, RBC 2.87 L, MCV 91.6, MCH 30.9, RDW 15.5 H, MPV 9.3, Gran % 77.6 H, Lymphocytes % 10.2 L, Monocytes % 9.6 H, Eosinophils % 2.5, Basophils % 0.1, Absolute Granulocytes 7.5 H, Absolute Lymphocytes 1.0 L, Absolute Monocytes 0.9 H, Absolute Eosinophils 0.2, Absolute Basophils 0, PUBS MCHC 33.7 Last 24 Hrs of Micro Results: Stool positive for C. difficile Impression/Plan Impression/Plan Impression/Plan: 1. S/p laparoscopic Clint patch for perforated duodenal ulcer with peritonitis and fistula. 2. Respiratory failure s/p tracheostomy placement. Improved. 3. Anemia without evidence of bleeding, slight decrease in H&H. 4. Encephalopathy - significantly improved overall. 5. Fever, cultures negative, now being observed off antibiotics. 6. 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 7. Malnutrition - on TPN, appetite improved. 8. Increase in peripheral edema and ascites. Recommendations: * Give Lasix 20 mg IV 1 today. * Continue Flagyl, follow-up ID recommendations. * Continue TPN pending improved nutrition. * Continue oral feeds. * Continue DVT and GI prophylaxis. * PT and OT to continue. * Management of drains as per surgery. * SQ heparin for DVT prophylaxis. Will monitor platelet count. * Continue all supportive care. * Await transfer to [facility].
--- NOTE | 2016-05-26 09:55 | Discharge Summary ---
See Addendum Visit Information Visit Dates Admission Date: 04/22/16 Discharge Date: 05/27/16 Hospital Course Course Attending Physician: Saad PANDEY MD Primary Care Physician: LUIS ALFREDO BERNARD DO Consulting Request: 1 Consulting Specialty: Critical Care Consulting Request: 2 Consulting Specialty: Cardiology Consulting Request: 3 Consulting Specialty: Nephrology Consulting Request: 4 Consulting Specialty: Gastroenterology Consulting Request: 5 Consulting Specialty: Infectious Disease Consulting Request: 6 Consulting Specialty: General Surgery Hospital Course: 51-year-old male with a past medical history of heavy alcohol abuse, alcoholic cirrhosis, gastritis, hypertension, hyperlipidemia presented to [facility] with worsening abdominal pain, vomiting and diarrhea for the past several weeks prior to admission. Vitals at the time of admission blood pressure 177/107, respiratory rate 20, pulse 96, MAXIMUM TEMPERATURE of 100.5 saturating 95% on 2 L of oxygen via nasal cannula. On physical exam he was awake, alert and in pain rating it as a 2 out of 10, vomiting. Chest was clear to auscultation bilaterally. Cardiovascular exam was benign with normal S1, S2, no murmurs appreciated. Normal exam revealed hypoactive bowel sounds, abdomen distended, tender to palpation diffusely with a right lower quadrant appendectomy scar. Examination of the extremities revealed 2+ pitting edema bilaterally. Labs were pertinent for microcytic anemia with an H&H of 12.7/30.0, white blood cell count of 7700 and a platelet count 229,000. Serum chemistries include sodium 133, potassium of 5.4, BUN 18 and a creatinine of 0.9. LFTs revealed elevated total bili of 4.2, direct bili of 2.5 with elevated AST of 112 on inhaled to 55 with an elevated alkaline phosphatase of 200. Serum lactic acid was elevated to 3.3 and INR was 1.66, Ammonia was 24, anion gap 15, lipase: 405, you tox screen positive for opiates/morphine and cannabis. A CT abdomen and pelvis revealed pneumoperitoneum, sigmoid diverticulitis without evidence of diverticulitis and a moderate amount of ascites. His chest x-ray was negative In the ED he underwent paracentesis which revealed a white blood cell count of 01/28/2004, 96 polymorphs, a white blood cell count of 2156. He was empirically started on antibiotics for SBP. He was admitted to the ICU and underwent surgical repair of perforated viscus and core liver biopsy on 04/22/2016. About 10 L of bilious cloudy ascites was drained during the surgery. His postoperative course was much complicated by acute respiratory failure requiring tracheostomy placement, alcohol withdrawal leading to encephalopathy requiring lactulose enemas, coagulopathy workup for which revealed that he was positive for hit antibodies. He also developed peritonitis postoperatively and had intermittent spikes in temperature for which he was on meropenem for 23 days and 3 different intervals. On his 33rd postoperative day, he had episodes of diarrhea and was found to be positive for C. difficile toxin on 05/25/2016. He was subsequently started on Flagyl 500 mg every 8 hours. He was started on TPN and subsequently on tube feeds. He was eventually started on a by mouth diet after a swallowing evaluation was done and is currently on parenteral nutrition which is being tapered as per nutrition recommendations. He is on pure thick and thins. He was also seen by psychiatry for altered mental status and agitation while undergoing alcohol withdrawal. He is to follow-up with psychiatry upon discharge. He is to follow-up with [facility] and prior to discharge from the nursing facility to [facility] should be contacted at [phone] to make an appoitnment. Complications: Please see above. Allergies: Coded Allergies: NO KNOWN ALLERGIES (08/27/12) Significant Procedures: SERVICE DATE: 04/22/16- EXAM TYPE: CARD - ECHOCARDIOGRAM CECILIA BABCOCK Age: 50 : 1965 Gender: M Exam Date: 04/22/2016 19:04 Exam Location: [place] [facility] Ht (in): 70 Wt (lb): 300 BSA: 2.66 BP: 120 / 50 Ordering Physician: SAMUEL TSANG MD Referring Physician: SAMUEL TSANG MD Technologist: Flores Stoll [facility] Room Number: 106-1 Indications: HEART FAILURE Rhythm: Technical Quality: Fair FINDINGS Left Ventricle Left ventricular cavity size normal. Left ventricular wall thickness mildly increased. No obvious regional wall motion abnormalities. Left ventricular ejection fraction is estimated at 55 %. Normal left ventricular diastolic filling pattern for age. Right Ventricle Right ventricle not well visualized, grossly normal. Right Atrium Normal right atrial size. Left Atrium Left atrial size at the upper limits of normal. Mitral Valve Mild mitral annular calcification. No mitral stenosis. Trace mitral regurgitation. Aortic Valve Trileaflet aortic valve. No aortic stenosis. Tricuspid Valve Structurally normal tricuspid valve. Mild tricuspid regurgitation. Right ventricular systolic pressure estimated at 35 mmHg. Pulmonic Valve Pulmonic valve not well visualized, grossly normal. Pericardium No pericardial effusion. Great Vessels Normal size aortic root and proximal ascending aorta. CONCLUSIONS Left ventricular cavity size normal. Left ventricular wall thickness mildly increased. No obvious regional wall motion abnormalities. Left ventricular ejection fraction is estimated at 55 %. Normal left ventricular diastolic filling pattern for age. Right ventricle not well visualized, grossly normal. Left atrial size at the upper limits of normal. Right ventricular systolic pressure estimated at 35 mmHg. No pericardial effusion. Pan Kruse M.D. (Electronically Signed) Final Date: 23 April 2016 10:28 SERVICE DATE: 04/22/16 EXAM TYPE: CAT - CT ABD & PELVIS W/O IV CONTRAS EXAMINATION: CT ABDOMEN AND PELVIS WITHOUT CONTRAST CLINICAL INFORMATION: Abdominal pain. COMPARISON: 01/25/2014. TECHNIQUE: Contiguous axial thin section helical images of the abdomen and pelvis were performed without oral or IV contrast. The data set was reformatted in the coronal and sagittal planes and reviewed on an independent workstation. DLP: 1371 mGy-cm. FINDINGS: The visualized lung bases are clear. The visualized portions of the heart are unremarkable. The liver is of normal size and diffusely heterogeneous attenuation without focal lesions nor intrahepatic biliary ductal dilation. A normal gallbladder is identified. There is no wall thickening or discernible pericholecystic fluid. The spleen, pancreas, adrenal glands are unremarkable. Both kidneys are of normal size and attenuation without hydronephrosis or nephrolithiasis. There is a moderate amount of free fluid within the abdomen. There is neither mesenteric nor retroperitoneal lymphadenopathy. There is extensive pneumoperitoneum. There are numerous sigmoid diverticula without evidence of diverticulitis. Otherwise, unremarkable unopacified loops of small and large bowel are identified. There is a large amount of pelvic free fluid. The urinary bladder is unremarkable. There is neither pelvic nor inguinal lymphadenopathy. Bone windows: Neither sclerotic nor lytic bone lesions are identified. A left hip prosthesis is intact. IMPRESSION: Pneumoperitoneum. There is sigmoid diverticulosis without evidence of diverticulitis. An etiology for the pneumoperitoneum is not demonstrable. Moderate amount of ascites throughout the abdomen. Large amount of pelvic free fluid. Liver is diffusely heterogeneous attenuation without focal lesions demonstrable. SERVICE DATE: 04/22/16 EXAM TYPE: RAD - XRY-PORTABLE CHEST XRAY EXAMINATION: CHEST 1 VIEW CLINICAL INFORMATION: Dyspnea. COMPARISON: 06/24/2015. TECHNIQUE: An AP view of the chest is provided. FINDINGS: The cardiac silhouette is not enlarged. The mediastinal and hilar contours are unremarkable. There are neither pleural effusions nor pneumothoraces. There are no consolidations. There is evidence of prior right shoulder surgery. The osseous structures are otherwise unremarkable. IMPRESSION: No evidence for acute disease. SERVICE DATE: 04/22/16 EXAM TYPE: RAD - XRY-PORTABLE CHEST XRAY EXAMINATION: XR PORTABLE CHEST CLINICAL INFORMATION: NG tube placement. COMPARISON: 04/22/2016 at 3:07 AM TECHNIQUE: Portable view of the chest was obtained. FINDINGS: Large body habitus. The nasogastric tube appears to extend approximately 5 cm below the level of the diaphragm and into the proximal stomach. Consider advancing the tube further distally into the stomach. Lungs are hypoinflated and there is linear opacity suggestive of minimal atelectasis in the medial bases. Cardiac silhouette is mildly enlarged. No evidence of acute pulmonary consolidation, pleural effusion or pneumothorax. The right lateral costophrenic sulcus is excluded from the [id number]. The visualized bones are intact. IMPRESSION: The tip of the nasogastric tube is in the proximal stomach approximately 5 cm below the level of the diaphragm; consider advancing the tube further into the more distal stomach. SERVICE DATE: 04/22/16 EXAM TYPE: RAD - XRY-PORTABLE ABDOMEN; XRY-PORTABLE CHEST XRAY EXAMINATION: PORTABLE CHEST X-RAYS CLINICAL INFORMATION: Perforation shock, hypotension COMPARISON: 04/22/2016 at 3:07 AM. TECHNIQUE: Serial portable chest x-rays. The first study from 6:54 AM shows an NG tube entering the stomach. The proximal port may been the level of the distal esophagus. Motion degrades imaging of the underlying lung nathan however grossly clear. The second image submitted is from 9:37 AM. The NG tube is less well seen on this exam. The lung nathan are hypoexpanded. No obvious dense infiltrate. Impression: 2 films are submitted. The last film shown demonstrates very low lung volumes. No convincing evidence for an acute process in the lung nathan. NG tube is poorly seen on the latest study but from 6:45 AM study appears to be crossing diaphragm into the stomach. The proximal port however may be at the level of the GE junction SERVICE DATE: 04/22/16 EXAM TYPE: RAD - XRY-PORTABLE CHEST XRAY EXAMINATION: XR PORTABLE CHEST CLINICAL INFORMATION: 50-year-old male with septicemia. Status post internal jugular line placement. COMPARISON: Chest and abdominal radiograph done on 04/22/2016. TECHNIQUE: Portable AP semierect 65 degrees view of the chest was obtained. FINDINGS: The tip of the right internal jugular venous catheter is projecting at the level of the cavoatrial junction. The tip of the endotracheal tube is located approximately 3.2 cm above the level of the ching. The tip of the enteric tube is not visualized due to underexposure however was well-positioned on the prior KUB done on 04/22/2016 at 9:37 AM. Nonspecific patchy airspace opacities are noted at left suprahilar, perihilar and left lung base. The cardiac mediastinal silhouette is mildly enlarged. IMPRESSION: 1. The tip of the right internal jugular venous catheter is projecting at the level of the cavoatrial junction. 2. The tip of the endotracheal tube is located approximately 3.2 cm above the level of the ching. 3. Nonspecific patchy airspace disease at left lung base and left perihilar, suprahilar region. SERVICE DATE: 04/23/16 EXAM TYPE: RAD - XRY-PORTABLE CHEST XRAY EXAMINATION: XR PORTABLE CHEST CLINICAL INFORMATION: Endotracheal tube positioning. COMPARISON: CXR from 04/22/2016 TECHNIQUE: Portable view of the chest was obtained. FINDINGS: The tip of the endotracheal tube is located approximately 5 cm above the ching. The tip of the right internal jugular central venous catheter is at the level of junction of the superior vena cava and right atrium. The enteric tube extends below the diaphragm into the stomach; this tube is suboptimally visualized. Lungs are hypoinflated and there is stable mild enlargement of the cardiomediastinal silhouette. There is an area of increased discoid atelectasis in the right lung base. There is no radiographically visible pneumoperitoneum. IMPRESSION: 1. Endotracheal tube in satisfactory position at 5 cm above the ching. 2. Increased discoid atelectasis in the right lung base compared to 04/22/2016. SERVICE DATE: 12/01/16-0500 EXAM TYPE: RAD - XRY-PORTABLE CHEST XRAY EXAMINATION: XR PORTABLE CHEST CLINICAL INFORMATION: Sepsis. Patient on ventilator. COMPARISON: CXR from 04/23/2016 TECHNIQUE: Portable view of the chest was obtained. FINDINGS: The tip of the endotracheal tube is 3.8 cm above the ching. Nasogastric tube extends below the diaphragm, into the stomach, and beyond the [id number]. The right internal jugular central venous catheter tip remains at the junction of the superior vena cava and right atrium. Lungs are hypoinflated. Again noted is platelike atelectasis of the right middle lobe along the minor fissure. Stable, mild enlargement of the cardiomediastinal silhouette. No acute pulmonary edema, pneumothorax, or overt pleural effusion. IMPRESSION: 1. Endotracheal tube in satisfactory position at 3.8 cm above the ching. 2. Lungs are hypoinflated and there is discoid atelectasis in the right middle lobe. SERVICE DATE: 04/25/16 EXAM TYPE: RAD - XRY-PORTABLE CHEST XRAY EXAMINATION: XR PORTABLE CHEST CLINICAL INFORMATION: Shock, on ventilator. COMPARISON: Chest done on 04/24/2016. TECHNIQUE: Portable view of the chest was obtained. FINDINGS: Low lung volume is present bilaterally. Ill-defined patchy airspace disease is noted at right mid to lower lung field. Previously identified presumed loculated right-sided pleural effusion versus band of atelectasis appears improved. The left lung field remains clear. The cardiomediastinal silhouette is mildly enlarged. The tip of the endotracheal tube is located approximately 3.2 cm above the level of the ching. The tip of the enteric tube is infradiaphragmatic. There is a right-sided internal jugular catheter identified, and appears in good position. IMPRESSION: Ill-defined patchy airspace disease at right mid to lower lung field. Previously identified loculated effusion versus bandlike atelectasis at right mid lung field appears improved. No other significant change. SERVICE DATE: 04/25/16 EXAM TYPE: RAD - XRY-PORTABLE CHEST XRAY EXAMINATION: XR PORTABLE CHEST CLINICAL INFORMATION: PICC line placed COMPARISON: 04/25/2016 at 6:00 AM TECHNIQUE: This is a limited portable radiograph of the chest at 4:44 PM. Patient positioning is nonstandard with emphasis on the right arm. FINDINGS: There is a right PICC line. The tip is seen in the region of the tricuspid valve. There appears to be a right central venous catheter with its tip at the cavoatrial junction. There is a small right effusion. Persistent prominence of the heart and mediastinum. IMPRESSION: 1. Right PICC tip projects at the tricuspid valve. 2. A small right effusion. SERVICE DATE: 04/25/16 EXAM TYPE: RAD - XRY-PORTABLE CHEST XRAY EXAMINATION: XR PORTABLE CHEST CLINICAL INFORMATION: PICC line placement. COMPARISON: Multiple prior studies. Most recent chest x-ray 04/25/2016, 4:44 PM TECHNIQUE: Portable view of the chest was obtained. 5:24 PM FINDINGS: Since the prior chest x-ray the PICC line catheter has been pulled back. The catheter tip is now at the cavoatrial junction. The right IJ catheter tip also at caval atrial junction. There is continued density at the right lung base due to a right pleural effusion and possible underlying basilar consolidation /atelectasis. Left lung is clear. No significant central pulmonary vascular congestion. IMPRESSION: 1. PICC line catheter is been pulled back and catheter tip is now at the cavoatrial junction good position. SERVICE DATE: 04/26/16050 EXAM TYPE: RAD - XRY-PORTABLE CHEST XRAY EXAMINATION: XR PORTABLE CHEST CLINICAL INFORMATION: On ventilator. COMPARISON: Several portable radiographs from 04/25/2016. TECHNIQUE: Upright portable AP view of the chest is performed at 0652 hours. FINDINGS: There are low lung volumes with inspiration to the posterior seventh ribs. Radiograph is underpenetrated. Endotracheal tube is approximately 4.5 cm above ching. There is right internal jugular central line with tip at proximal right atrium. Right PICC line is again noted with tip at superior vena cava right atrial confluence. Nasogastric tube is present. The distal end is imperceptible against the background attenuation of the lower mediastinum and abdomen. Tip not clearly visualized. Again, there is cardiomegaly. The vascularity is within normal. The left lung is grossly clear. There is vague opacity right base and blunting right lateral costophrenic angle suggesting airspace opacity and small effusion. No significant change from prior study considering differences in film technique. IMPRESSION: 1. Endotracheal tube 4.5 cm above ching. 2. Low lung volumes. Underpenetrated portable study. Right base effusion and probable airspace opacity similar to 04/25/2016. SERVICE DATE: 04/27/16- EXAM TYPE: US - US-RENAL/KIDNEY EXAMINATION: US RETROPERITONEAL COMPLETE (RENAL) CLINICAL INFORMATION: Elevated creatinine level. Evaluate for obstruction, nephrolithiasis or hydronephrosis. COMPARISON: CT scan of the abdomen and pelvis dated 04/22/2016. TECHNIQUE: Real-time imaging of the kidneys and bladder. FINDINGS: Evaluation is significantly limited due to patient's body habitus and inability to move or control respirations. RIGHT KIDNEY: The right kidney is only visualized in outline, measuring approximately 12.3 x 5.8 x 6.3 cm (SAG x AP x TRV). The kidney is otherwise not adequately assessed LEFT KIDNEY: 12.7 x 7.0 x 5.6 cm (SAG x AP x TRV). The kidney is normal in size, contour, and echogenicity. Renal cortical thickness is normal. No calculi or focal parenchymal lesions. No hydronephrosis. BLADDER: Completely decompressed by a Ann catheter. Bilateral ureteral jets are not demonstrated. IMPRESSION: 1. Inadequate assessment of the right kidney and bladder. 2. Left kidney grossly unremarkable. SERVICE DATE: 04/27/16-0600 EXAM TYPE: RAD - XRY-PORTABLE CHEST XRAY EXAMINATION: XR PORTABLE CHEST CLINICAL INFORMATION: Intubated patient on mechanical ventilation. COMPARISON: Multiple prior chest x-rays, most recent of which is dated 04/26/2016. TECHNIQUE: AP erect portable view of the chest was obtained. FINDINGS: Endotracheal tube is in place with tip 3.7 cm above the ching. Enteric tube is seen coursing into the distal esophagus with the tip not adequately visualized on this exam. A right subclavian PICC line is in place with tip in the cavoatrial junction, unchanged. Multiple EKG leads overlie the chest. Cardiomediastinal silhouette remains enlarged. Mild central vascular congestion is seen. There is a moderate right-sided pleural effusion, increasing in size compared to the prior exam. Associated volume loss seen in the right lower lung. The left lung remains fully expanded. There is no significant change in the retrocardiac left lung base density, likely a combination of AP technique and left basilar subsegmental atelectasis. No pneumothorax is seen. Bony structures are grossly unremarkable. IMPRESSION: 1. Endotracheal tube tip 3.7 cm above the ching. 2. Suspect increase in size of right-sided pleural effusion compared to prior studies. Associated right basilar lung parenchymal volume loss remains similar. SERVICE DATE: 04/28/16-0500 EXAM TYPE: RAD - XRY-PORTABLE CHEST XRAY EXAMINATION: XR PORTABLE CHEST CLINICAL INFORMATION: Multiple prior chest x-rays most recently 04/27/2016. COMPARISON: None. TECHNIQUE: Portable view of the chest was obtained. FINDINGS: The endotracheal tube is unchanged in position again measuring approximately 3.7 cm above the ching. The enteric tube courses along the esophagus and extends into the left upper quadrant, below the diaphragm. The distal tip is not seen. The right subclavian PICC line is unchanged in position with the tip in the cavoatrial junction. Again noted are multiple EKG leads overlying the chest. The lung expansion has slightly improved. The moderate right pleural effusion appears grossly unchanged. However, the right lateral chest and right costophrenic angle are incompletely imaged. There is stable mild pulmonary edema. There is no pneumothorax or definite focal infiltrate. The osseous structures are grossly unchanged. IMPRESSION: Endotracheal tube stable in position approximately 3.7 cm above the ching. No pneumothorax. Improved pulmonary expansion with suspected stable moderate right pleural effusion. However, limited evaluation of the right lateral chest and costophrenic angle. SERVICE DATE: 04/29/16- EXAM TYPE: CAT - CT ABD & PELVIS W/O IV CONTRAS; CT CHEST WO IV CONTRAST EXAMINATION: CT CHEST, ABDOMEN AND PELVIS WITH CONTRAST CLINICAL INFORMATION: Fever. On ventilator. Right-sided pleural effusion. Evaluate for intra-abdominal abscess. COMPARISON: Chest x-ray dated 04/29/2016. CT scan of the abdomen and pelvis dated 04/22/2016 and 01/25/2014. TECHNIQUE: Multidetector CT helical images of the chest, abdomen and pelvis were performed noncontrast. The data set was reformatted in the coronal and sagittal planes and reviewed on an independent workstation. DLP: 2051.73 mGy-cm. FINDINGS: CHEST: LUNGS: Small small left and moderate size right-sided pleural effusion is seen layering posteriorly up to the right lung apex. Associated complete collapse and consolidation of the right lower lobe is seen with multiple air bronchograms. There is partial consolidation with air bronchograms seen in the dependent portions of the left lower lobe and in the lateral segment of the right middle lobe and in the dependent portions of the right upper lobe and lingula. The central airways are diffusely narrowed but still patent. An endotracheal tube is in place with tip at the level of the aortic arch, approximately 3 cm from the ching. No pneumothorax is present. LYMPHOVASCULAR STRUCTURES: Right subclavian PICC line is in place with tip at the cavoatrial junction. Aortic and heart size are normal. Mild atherosclerotic calcifications of the aorta and branch vessels, including the coronary arteries. No pericardial effusion is seen. No significant mediastinal, hilar or axillary adenopathy is present. BONES: No suspicious focal finding. ABDOMEN AND PELVIS: Evaluation of the upper abdomen is significantly limited due to beam hardening artifact related to the patient's arms. LIVER, GALLBLADDER, BILIARY TREE: Liver again found to be enlarged, measuring 29.5 cm longitudinally, similar to the prior exam. No focal cystic or solid mass or intra-or extrahepatic ductal dilatation seen on this limited assessment. Hepatic and portal veins patent. The gallbladder partially distended and unremarkable with no definite calcified gallstones, gallbladder wall thickening or pericholecystic fluid seen. A drain is seen in the gallbladder fossa. PANCREAS: No definite ductal dilatation or mass appreciated on limited exam. SPLEEN: Spleen is enlarged, measuring 17 cm longitudinally, similar to the prior exam. ADRENAL GLANDS AND KIDNEYS: Adrenal glands normal. Kidneys bilaterally symmetric in size and lobulated in contour. No definite focal mass, hydronephrosis, or nephrolithiasis on this limited exam. URETERS AND BLADDER: Ureters decompressed and within normal limits. Bladder decompressed by a Ann catheter and not adequately assessed. PELVIC VISCERA: The patient may be status post prostatectomy or the prostate gland may be atrophic. BOWEL LOOPS: Moderate sigmoid colonic diverticulosis and descending colonic diverticulosis is seen without evidence of acute diverticulitis. Terminal ileum and small bowel loops are decompressed and grossly unremarkable. Enteric tube is seen within the gastric body. Small amount of ascites remains in the abdomen. A right upper quadrant/perihepatic catheter is seen in place and the previously noted perihepatic fluid has nearly completely resolved with only a trace amount of ascites remaining around the liver, spleen and extending into the lower pelvis. No evidence of bowel obstruction or perforation. LYMPHOVASCULAR STRUCTURES: Abdominal aorta normal in caliber with mild atherosclerotic calcification seen. Of note, there is a left-sided IVC, which crosses to the right side at the level of the renal sundeep. No periaortic collections. No abdominal or pelvic adenopathy or free fluid collection. BONES: Total left hip arthroplasty is in place. Bony structures are grossly unremarkable. IMPRESSION: 1. Moderate right-sided and small left-sided freely layering pleural effusions are seen without obvious complexity visualized on noncontrast study. 2. Complete collapse and consolidation of the right lower lobe and lesser degrees of consolidation and volume loss in the other lobes as above. 3. Limited evaluation of the abdomen and pelvis, no focal acute process is seen. Previously noted intra-abdominal ascites has significantly decreased status post drain placement in the right upper quadrant. 3. Hepatosplenomegaly is noted. 4. Moderate sigmoid and descending colonic diverticulosis with no evidence of acute diverticulitis. SERVICE DATE: 04/29/16-0500 EXAM TYPE: RAD - XRY-PORTABLE CHEST XRAY EXAMINATION: XR PORTABLE CHEST CLINICAL INFORMATION: Intubated follow-up. COMPARISON: Multiple priors most recent 04/28/2016. TECHNIQUE: Portable view of the chest labeled 30 degrees upright. FINDINGS: Endotracheal tube is unchanged in position with its tip approximately 5 cm proximal to the ching. Enteric tube is also again noted overlying the proximal to mid esophagus, further distally the tube is not visualized. Right-sided subclavian PICC line is again noted with its tip at the caval atrial junction unchanged in position. Heart remains enlarged. Lung volumes are diminished. Right-sided opacity likely a combination of effusion and atelectasis appears largely unchanged. No definite infiltrate identified. IMPRESSION: Stable appearing chest x-ray. SERVICE DATE: 04/30/16- EXAM TYPE: US - US-LIMITED ABDOMEN PROCEDURE: ULTRASOUND-GUIDED THORACENTESIS, ABORTED. INDICATION: Right-sided pleural effusion, right lower lobe collapse. SPECIMEN: None. ACCESS: None. REQUESTING PRACTITIONER: Shital Freed MD CONSENT: Informed consent was obtained from the patient's HCP prior to the procedure. During this process, the procedure and potential alternatives were explained along with the intended outcome and benefits. The risks of the procedure, including the possibility of an unsuccessful procedure as well as the risk of not doing the procedure were discussed. The patient was given the opportunity to ask any questions regarding the procedure and appeared competent to make medical decisions. A signed consent form which documents this discussion was placed in the medical record. A timeout procedure was performed. Ultrasound images of the right thorax were obtained. This showed only trace/small pleural effusion, deemed not safe to access for thoracentesis. The procedure was aborted. Images were permanently saved to the record. IMPRESSION: Trace/small right pleural effusion, not enough fluid to safely access for thoracentesis. If respiratory status remains poor, consider repeat ultrasound to assess for enough fluid to perform diagnostic and therapeutic thoracentesis. SERVICE DATE: 04/30/16- EXAM TYPE: CAT - CT HEAD WO IV CONTRAST EXAMINATION: CT HEAD WITHOUT CONTRAST CLINICAL INFORMATION: Agitated and altered mental status, assess for cerebral edema. COMPARISON: 10/12/2015 TECHNIQUE: Contiguous axial imaging was performed from the skull base to vertex without intravenous administration of contrast. DLP: 2051.73 mGy-cm. FINDINGS: There is no evidence of acute intracranial hemorrhage or territorial infarction. No abnormal mass effect or midline shift is seen. Wheat to white matter differentiation is well preserved. No extra-axial fluid collections are identified. The ventricles are normal in size. There is no abnormal attenuation within the brain parenchyma. The osseous structures and soft tissues are normal. Mucosal thickening/fluid in the right greater than left maxillary sinuses, the remaining paranasal sinuses are clear. IMPRESSION: No acute intracranial pathology. SERVICE DATE: 04/30/160500 EXAM TYPE: RAD - XRY-PORTABLE CHEST XRAY EXAMINATION: XR PORTABLE CHEST CLINICAL INFORMATION: On ventilator. CT chest showed right-sided pleural effusion. COMPARISON: Chest x-ray and CT chest 04/29/2016. TECHNIQUE: A portable AP 75 degrees semierect view of the chest was obtained. FINDINGS: There are multiple monitor leads overlying the chest. The endotracheal tube tip is unchanged approximately 5 cm above the ching. Enteric tube is noted within the esophagus extending through the lower chest; it is not visualized in the upper abdomen. There has been no interval change in the right-sided PICC line with the tip at the cavoatrial junction. The lungs are hypoexpanded. The cardiac silhouette is prominent but stable. There is opacity at the right base, consistent with pleural effusion and/or consolidation demonstrated on prior imaging, similar in size. There are no pneumothoraces. There is mild prominence of the central pulmonary vasculature. There are no acute osseous findings. IMPRESSION: 1. The study redemonstrates opacity at the right base, most consistent with atelectasis and/or consolidation. Electroencephalogram Report ELECTROENCEPHALOGRAM RESULTS Date of service: 04/30/16 Ordering Provider: AMPOULE FILLER AND SEALER: Aaron EEG NUMBER: [id number] TEST UTILIZES: Test Utilizes a 10-20 system, 21 lead, 18 channel digital recording. PERTINENT HX/PHYSICAL/NEURO FINDINGS/CLINICAL DIA50 year old male with ascites in ICU and changes in mental status. R/o non- convulsive status. MEDICATIONS: Ativan INTERPRETATION: The recording demonstrates very low amplitude in the range of 5-10 microvolts in all leads. There is ample artifacts including movement, muscles and drip artifact. There is slowing seen diffusely to theta range rhythms. There are no paroxysmal sharps or spikes. The posterior dominant rhythm is indiscernible. IMPRESSION: An abnormal EEG due to generalized slowing and very low amplitudes suggestive of diffuse cerebral dysfunction. No suggestion of electrographic seizures. SERVICE DATE: 05/01/16 EXAM TYPE: RAD - XRY-PORTABLE CHEST XRAY EXAMINATION: XR PORTABLE CHEST CLINICAL INFORMATION: Left-sided pleural. On ventilator. COMPARISON: X-ray of the chest performed 04/30/2016. TECHNIQUE: Portable view of the chest was obtained. FINDINGS: Endotracheal tube terminates 2.8 cm from the ching. The inferior extent of the gastric decompression tube is not well evaluated, due to underpenetration of the upper abdomen. Right PICC line terminates in the right cavoatrial junction. Lungs are hypoexpanded. There is atelectasis in the lower lobes with moderate-sized associated pleural effusions, unchanged from prior. Pulmonary venous congestion is likely present. Consolidation in the lung bases is possible. Soft tissue anchors are again seen in the right humeral head. IMPRESSION: 1. Endotracheal tube in good position. 2. Small amount of bilateral pleural effusions with associated lower lobe atelectasis. Superimposed consolidation is possible. 3. Pulmonary venous congestion SERVICE DATE: 05/02/16 EXAM TYPE: RAD - XRY-PORTABLE CHEST XRAY EXAMINATION: XR PORTABLE CHEST CLINICAL INFORMATION: On ventilator with pleural effusion. COMPARISON: Several prior chest x-rays, most recent of which is dated 05/01/2016. TECHNIQUE: AP semierect portable view of the chest. FINDINGS: Endotracheal tube tip approximately 5.8 cm from the ching. Enteric tube is seen coursing into the left upper quadrant with tip not adequately visualized. Right subclavian PICC line is in place with tip poorly visualized but likely within the right atrium. Low lung volumes are again seen with hazy opacities seen in both lungs, consistent with a moderate right-sided and a small left-sided layering pleural effusion. Associated bibasilar consolidation or atelectasis is seen, similar to the previous exam. Central vascular congestion and indistinctness is again seen without overt pulmonary edema. No pneumothorax is seen. Bony structures grossly unremarkable. IMPRESSION: 1. Endotracheal tube tip approximately 5.8 cm above the ching. 2. Enteric tube extends into the left upper quadrant with tip not adequately visualized. 3. Right subclavian PICC line likely within right atrium. 4. No significant change in moderate right-sided and small left-sided layering pleural effusions with bibasilar consolidation or atelectasis, right greater than left. 5. Central vascular congestion. SERVICE DATE: 05/03/16- EXAM TYPE: CAT - CT ABD & PELVIS W/O IV CONTRAS; CT CHEST WO IV CONTRAST EXAMINATION: CT CHEST WITHOUT IV CONTRAST CT ABDOMEN AND PELVIS WITHOUT IV CONTRAST CLINICAL INFORMATION: 50-year-old male with fever and elevated WBC level. COMPARISON: CT exams of chest, abdomen and pelvis from 04/29/2016. TECHNIQUE: Noncontrast, multidetector CT imaging examination of the chest, abdomen and pelvis was performed. Axial images are displayed at 0.625 mm and 5 mm slice thickness. Coronal and sagittal reformatted images were generated at the technologist's workstation and submitted for review. DLP: 2053 mGy-cm FINDINGS: CHEST - The endotracheal tube is located approximately 3.5 cm above the ching. The tip of the right arm peripherally inserted catheter is at the cavoatrial junction. The enteric tube extends below the diaphragm and into the proximal stomach. Compared to 04/29/2016, no significant interval change in bilateral pleural effusions (right larger than left) accompanied by collapse/consolidation of the right lower lobe and partial collapse of the left lower lobe. There is atelectasis in the dependent aspect of the middle lobe and lingula, and the subsegmental atelectasis of the superior lingula has increased. The heart size is mildly enlarged. No pericardial effusion. Pulmonary arteries and atherosclerotic aorta are normal in caliber. No pathologic sized axillary, hilar or mediastinal lymph nodes are identified on this noncontrast examination. Symmetric appearance of gynecomastia. No acute skeletal findings within the thorax. ABDOMEN AND PELVIS - There is a relatively high level of image cause by patient's arm position along the sides. Also, patient has a large body habitus. There is hepatomegaly without evidence of focal hepatic lesion or intrahepatic bile duct dilatation. Gallbladder is physiologically distended and without evidence of calcified stones. Drainage catheter remains in stable position as it courses inferior to the region of the gallbladder neck and along the undersurface of the liver. A drainage catheter in the right perihepatic space is in stable position, as well. No acute pancreatic findings on this noncontrast examination. There is no evidence of pancreatic ductal dilatation. There is persistent nonspecific retroperitoneal/peripancreatic edema. Large spleen is 16.5 cm AP dimension. Adrenal glands are normal. Kidneys are normal in size and have normal cortical attenuation. No nephrolithiasis or hydronephrosis. Urinary bladder is decompressed. The stomach is underdistended with enteric tube located in the proximal third of the stomach. Small and large bowel are normal in caliber. Again noted are multiple colonic diverticula. There is persistent edema within the mesentery. A drainage catheter is in stable position within the right pelvis. A trace amount of ascitic fluid is present in the pelvic cul-de-sac. There are no new abdominal or pelvic fluid collections. Atherosclerotic calcification of the abdominal aorta without aneurysm. The inferior vena cava has a left-sided course. There are no enlarging lymph nodes within the abdomen or pelvis. No acute skeletal findings within the lumbar spine, pelvis or proximal femurs. The visualized components of the left total hip arthroplasty are intact. IMPRESSION: 1. Persistent moderate right pleural effusion and small left pleural effusion. 2. Persistent collapse/consolidation of right lower lobe and, to a lesser degree, left lower lobe. Subsegmental atelectasis within the superior lingula has increased. 3. Hepatosplenomegaly. Persistent small volume of ascitic fluid in the abdomen and pelvis, and edema of the mesentery. There are no newly developing fluid collections. The drainage catheters are in stable position compared to 04/29/2016. 4. Colonic diverticulosis. No significant, new findings along the gastrointestinal tract. SERVICE DATE: 05/03/16 EXAM TYPE: RAD - XRY-PORTABLE CHEST XRAY EXAMINATION: XR PORTABLE CHEST CLINICAL INFORMATION: Respiratory failure. COMPARISON: Prior chest radiographs, most recently 05/02/2016. TECHNIQUE: An AP portable upright view of the chest was obtained. FINDINGS: The heart, great vessels, pulmonary vasculature and mediastinum are stable. An endotracheal tube is seen with tip positioned approximately 4.3 cm superior to the ching. PICC catheter unchanged, with its tip at the level of the superior vena cava. Nasogastric tube is poorly delineated. There is pulmonary vascular congestion, without overt pulmonary edema. There is elevation of the right hemidiaphragm, with mild right base atelectasis. There is plate-like atelectasis at the mid left lung field. No pleural effusion or pneumothorax is seen. There is no acute osseous abnormality. IMPRESSION: 1. Endotracheal tube tip positioned as above. 2. There is bilateral airspace disease, left greater than right, with appearance favoring atelectasis. 3. Bilateral pleural effusions are less well appreciated than on prior. SERVICE DATE: 05/04/16 EXAM TYPE: RAD - XRY-PORTABLE CHEST XRAY EXAMINATION: XR PORTABLE CHEST CLINICAL INFORMATION: Pleural effusion. Intubation. COMPARISON: CT of chest 05/03/2016. Portable chest x-ray 05/03/2016. TECHNIQUE: Portable view of the chest was obtained. 4:31 AM FINDINGS: Endotracheal tube catheter approximately 3.6 cm above the ching. Nasogastric tube passes into the stomach but the catheter tip is visualized. The chest x-ray under penetrates the abdomen. There is a right-sided PICC line with the catheter tip at caval atrial junction. Volume of the lung is low. No significant central pulmonary vascular congestion. Bilateral pleural effusion seen on the CT of chest 05/03/2016, right larger than left is better demonstrated on the CT than the chest x-ray. There is a ventricular density at the left lateral chest which can be some segmental atelectasis or fluid in the fissure. IMPRESSION: The bilateral pleural effusions better demonstrated on prior chest CT than this portable chest x-ray exam. Fluid in the fissure versus subsegmental atelectasis at left lung base Tubes and lines in good position. SERVICE DATE: 05/05/16 EXAM TYPE: RAD - XRY-PORTABLE CHEST XRAY EXAMINATION: XR PORTABLE CHEST CLINICAL INFORMATION: Chronically ill patient, intubated. Atelectasis versus pneumonia. COMPARISON: Multiple prior chest x-rays, most recent of which is dated 05/04/2016. CT scan of the chest dated 05/03/2016. TECHNIQUE: AP semierect portable view of the chest. FINDINGS: Endotracheal tube approximately 5 cm above ching. Enteric tube courses into the left upper quadrant with tip not visualized. Right subclavian PICC line tip in right atrium. Cardiomediastinal silhouette enlarged, unchanged. Low lung volumes persist with vascular congestion and perihilar opacities, consistent with mild pulmonary edema. Superimposed linear subsegmental atelectasis in left midlung and atelectasis/consolidation in right lung base again noted. The bilateral pleural effusions demonstrated on CT scan are less well appreciated on plain film. No pneumothorax is seen. Bony structures are grossly unremarkable. IMPRESSION: 1. Endotracheal tube tip 5 cm above ching. 2. Low lung volumes with suspicion of mild pulmonary edema and bilateral pleural effusions. 3. Right basilar atelectasis/consolidation and linear left mid lung atelectasis. SERVICE DATE: 05/06/16 EXAM TYPE: RAD - XRY-PORTABLE CHEST XRAY EXAMINATION: XR PORTABLE CHEST CLINICAL INFORMATION: Intubation. COMPARISON: Chest x-ray 05/05/2016. CT of the chest 05/03/2016 TECHNIQUE: Portable view of the chest was obtained. FINDINGS: Endotracheal tube catheter 5 cm above ching. Nasogastric tube in stomach. Right-sided PICC line catheter tip projecting over the right atrium. Linear subsegmental atelectasis at the peripheral left lung base. Lungs are otherwise clear. No pulmonary vascular congestion. No significant pleural effusion. IMPRESSION: Linear subsegmental atelectasis at left lung base. Lungs otherwise clear. Tubes and lines in good position. SERVICE DATE: 05/06/16 EXAM TYPE: RAD - XRY-PORTABLE CHEST XRAY EXAMINATION: CHEST 1 VIEW CLINICAL INFORMATION: Enteric tube placement. COMPARISON: Same day chest radiograph. TECHNIQUE: An AP view of the chest is provided. FINDINGS: The cardiac silhouette is not enlarged. T an enteric tube is in place. The tip overlies the left upper quadrant, likely within the stomach. He mediastinal and hilar contours are unremarkable. There are neither pleural effusions nor pneumothoraces. There is a retrocardiac infiltrate present consolidations. The osseous structures are unremarkable. IMPRESSION: Enteric tube in place. Retrocardiac infiltrate. SERVICE DATE: 05/09/16142 EXAM TYPE: RAD - XRY-PORTABLE CHEST XRAY EXAMINATION: XR PORTABLE CHEST CLINICAL INFORMATION: Patient on TPN. COMPARISON: Multiple prior chest x-rays most recent prior dated 05/06/2016 TECHNIQUE: Portable view of the chest was obtained. FINDINGS: Interval placement of tracheostomy tube. Feeding tube extends below the level of the diaphragm. Right-sided central line terminating below the cavoatrial junction. Cardiomegaly. Low lung volumes. Central pulmonary vascular congestion. No acute airspace opacities. Trace right pleural effusion. IMPRESSION: 1. Cardiomegaly and central pulmonary vascular congestion. 2. Trace right pleural effusion. 2. Interval placement of the tracheostomy tube. SERVICE DATE: 05/10/16 EXAM TYPE: RAD - XRY-PORTABLE CHEST XRAY ADDENDUM: Repeat chest x-ray was performed to evaluate for nasogastric tube placement. A single portable AP image of the lower chest and upper abdomen was obtained. There is an enteric catheter which is visualized coiled within the upper stomach. The catheter is looped upon itself with the weighted tip of the catheter identified oriented towards and positioned at the gastroesophageal junction. A drain is present within the central abdomen. IMPRESSION: A weighted enteric catheter coiled within the upper stomach with the weighted tip of the catheter oriented towards and positioned at the gastroesophageal junction. Recommend advancement for post pyloric placement. Addendum Signed by: MAXIMILIANO GRIMM MD 05/10/16 4728 EXAMINATION: XR PORTABLE CHEST CLINICAL INFORMATION: Respiratory failure. Status post intubation. COMPARISON: Portable chest x-ray 05/09/2016. TECHNIQUE: Portable view of the chest was obtained. FINDINGS: Essentially nondiagnostic examination secondary to exclusion of the bilateral upper lung nathan as well as patient body habitus and respiratory motion abnormality. A repeat chest x-ray is recommended. IMPRESSION: Nondiagnostic chest x-ray secondary to significant exclusion of the upper lung nathan and the upper mediastinum. This exam is also limited secondary to motion abnormality and patient body habitus. Recommend repeat chest x-ray. SERVICE DATE: 05/11/16- EXAM TYPE: RAD - XRY-PORTABLE ABDOMEN EXAMINATION: XR PORTABLE ABDOMEN CLINICAL INFORMATION: Evaluate feeding tube placement. COMPARISON: Multiple priors, most recent chest radiograph dated 05/11/[address] abdomen/pelvis dated 05/03/2016. TECHNIQUE: A single AP supine view of the right abdomen was obtained. FINDINGS: Two enteric tubes are noted with their tips overlying the left upper quadrant. A right mid abdomen surgical drain is redemonstrated, not significantly change in position when compared to the prior CT. There is a nonobstructive bowel gas pattern. The visualized osseous structures are unremarkable. IMPRESSION: Two enteric tubes in unchanged position with their tips overlying the left upper quadrant. Unchanged surgical drain. Nonobstructive bowel gas pattern. SERVICE DATE: 05/11/16 EXAM TYPE: RAD - XRY-PORTABLE CHEST XRAY EXAMINATION: XR PORTABLE CHEST CLINICAL INFORMATION: Respiratory failure COMPARISON: May 10, 2016 and studies dating back to June 23, 2015 TECHNIQUE: AP Portable view of the chest was obtained. FINDINGS: Limited AP portable view of the chest with motion artifact is provided. Left costophrenic angle not included on the study. Tracheostomy tube is seen in place. Right subclavian central venous catheter seen with tip in the region of the cavoatrial junction. 2 catheters are seen traversing to the stomach. No pneumothorax appreciated. There are small lung volumes. It's difficult to evaluate however there appears to be mild bilateral basilar atelectasis. The cardiopericardial silhouette is enlarged. No evidence of pulmonary edema. IMPRESSION: Cardiomegaly without pulmonary edema. Small lung volumes with bibasilar mild disease SERVICE DATE: 05/11/16 EXAM TYPE: RAD - XRY-PORTABLE CHEST XRAY EXAMINATION: XR PORTABLE CHEST CLINICAL INFORMATION: PICC catheter placement. COMPARISON: Multiple priors, most recent chest radiograph done 05/11/2016 at 5:26 AM. TECHNIQUE: A limited portable view of the chest is obtained. FINDINGS: A right-sided central venous catheter is noted with its tip terminating over the superior vena cava. A tracheostomy is redemonstrated with its tip approximately 4.3 cm proximal to the ching. Enteric tubes are again seen extending below the left hemidiaphragm. There is hypoexpansion of the lungs. The inferolateral portion of the left lung is not included on the film. The included lungs demonstrate mild atelectasis, which may be due to hypoexpansion. Underlying infiltrates are not excluded. No pneumothorax. IMPRESSION: Right-sided central venous catheter with its tip overlying the superior vena cava. Additional lines and tubes are unchanged in position. Limited evaluation of the lungs which show bilateral atelectasis, which may be due to hypoexpansion. SERVICE DATE: 05/12/160500 EXAM TYPE: RAD - XBR-VILICYD-NSLNNH VIEW EXAMINATION: XR ABDOMEN CLINICAL INDICATION: Evaluate feeding tube position. On tube feeding. COMPARISON: KUB dated 05/11/2016. TECHNIQUE: AP supine portable view of the abdomen. FINDINGS: Feeding tube is again seen coiled in the stomach with tip projected cranially at the GE junction. An enteric tube is in place as well with tip projected in the left upper quadrant, presumably in the gastric fundus. Positioning of both tubes is unchanged. Right upper quadrant drain is partially imaged. Bowel gas pattern grossly unremarkable. Exam is overall limited and was primarily performed for feeding tube positioning. IMPRESSION: 1. No interval change in positioning of the feeding tube with tip projected cranially at the GE junction. This should be repositioned and redirected into the third/fourth portion of the duodenum. 2. No change in positioning of enteric tube with tip projected over the left upper quadrant, presumably the gastric fundus. SERVICE DATE: 05/12/16-125 EXAM TYPE: CAT - CT ABD & PELVIS W ORAL & IV CO; CT CHEST W IV CONTRAST EXAMINATION: CT CHEST, ABDOMEN AND PELVIS WITH CONTRAST CLINICAL INFORMATION: Presumptive Dx: S/P DUODENAL ULCER REPAIR, ? ABD ABSCESS Signs \T\ Symptoms: FEVER COMPARISON: CT dated 05/03/2016. TECHNIQUE: Multidetector volumetric imaging was performed from the thoracic inlet through the pubic symphysis following administration of intravenous contrast material. A total of 95 mL Optiray 320 intravenous contrast material was administered. Rectal contrast material was also administered. Sagittal and coronal reformatted images were obtained on the technologist's workstation. DOSE: 1692.4 mGy-cm FINDINGS: -CHEST- LUNG: As compared to prior chest CT, there has been resolution of the pleural effusions with mild persistent linear atelectasis in the lower lobes bilaterally, right greater than left, and, to a lesser extent, in the posterior aspect of the right upper lobe. There is a small clustered focus of airspace opacities in the posterior segment of the right upper lobe (image 17 and 18/41 of series 3) which may represent a small focus of residual or recurrent consolidation. There is no pulmonary consolidation is identified. Central airways are clear. Endotracheal tube terminates 4.3 cm from the ching. MEDIASTINUM: Heart remains mildly enlarged. No pericardial effusion. Gastric decompression tube is present within the esophagus, extending into the stomach. No adenopathy. Thoracic aorta is normal in caliber. Minimal calcific atherosclerosis. PERICARDIUM/PLEURA: No significant residual effusions. CHEST WALL/AXILLA: Mild gynecomastia. Right-sided PICC line terminates at the cavoatrial junction. -ABDOMEN/PELVIS- LIVER, GALLBLADDER, BILIARY TREE: Hepatomegaly is again noted. Liver is normal in attenuation without significant nodularity. No biliary ductal dilatation. No focal lesions are identified. There is a small amount of fluid around the gallbladder which is likely postsurgical in nature. The CONNIE drain extends into the inferior aspect of the gallbladder fossa. PANCREAS: Unremarkable. SPLEEN: Unremarkable. ADRENAL GLANDS: Unremarkable. KIDNEYS AND URETERS: The kidneys are normal in size, shape, and attenuation. No hydronephrosis, hydroureter, or calculi seen. No perinephric stranding. BLADDER: Bladder is decompressed. There is a Ann catheter terminating within the bladder. GASTROINTESTINAL TRACT: Dobbhoff in gastric decompression tube terminating in the body of the stomach. There is a nondilated bowel gas pattern. Diverticulosis is present throughout the colon. No acute diverticulitis. No intraperitoneal leakage of contrast material. CONNIE drains are present within the right lower quadrant and right upper quadrant (gallbladder fossa and superficial to the right lobe of the liver). There is a small volume of perihepatic ascites, increased in volume as compared to the prior study. Trace amount of fluid is present within the pelvis. No significant intraperitoneal free air. Edema within the upper abdomen around the duodenum is similar to prior. Mesenteric edema is less pronounced. ABDOMINAL WALL: No significant hernia is appreciated. LYMPHOVASCULAR STRUCTURES: No adenopathy. Calcific atherosclerosis is present in the abdominal aorta and iliac arteries. No aneurysmal dilatation.. PELVIC VISCERA: Unremarkable. OSSEUS STRUCTURES: Left total hip arthroplasty is evident. No evidence of complications. There is mild degenerative disc disease in the the thoracic spine. Lumbar spine is relatively well-preserved. No acute osseous abnormalities. IMPRESSION: 1. Resolution of the previously seen pleural effusions with mild residual atelectasis. A small focus of residual airspace disease in the posterior aspect of the right upper lobe is compatible with residual or recurrent consolidation. 2. Hepatosplenomegaly, unchanged. 3. Small volume of perihepatic ascites, increased as compared to prior. Overall mesenteric edema is slightly improved. No evidence of perforation. CONNIE drains are unchanged in position. 4. Colonic diverticulosis without evidence of acute diverticulitis. No abscesses are identified. SERVICE DATE: 05/13/16 EXAM TYPE: RAD - XRY-PORTABLE CHEST XRAY EXAMINATION: XR PORTABLE CHEST CLINICAL INFORMATION: On ventilator COMPARISON: CT scan performed previous day and chest radiograph performed 05/11/2016 TECHNIQUE: Portable view of the chest was obtained. FINDINGS: Tracheostomy tube is midline, terminating 5.5 cm above ching. Feeding tube terminates in region of stomach fundus. There is also an NG tube present, not clearly seen below level of the lower mediastinum. The heart remains normal size. There is mild bilateral hypoexpansion without congestion or consolidation. No effusion. IMPRESSION: No acute pulmonary finding. SERVICE DATE: 05/13/16 EXAM TYPE: RAD - [id number]-[id number]-NGIFFM VIEW EXAMINATION: XR ABDOMEN CLINICAL INDICATION: Dobbhoff tube placement. COMPARISON: 05/12/2016 TECHNIQUE: Abdomen, AP view FINDINGS: There are no dilated bowel loops. Enteric contrast material is present within the colon, and there are diverticula of the descending and sigmoid colon. Again noted is the feeding tube coiled within the stomach, its tip directed cranially toward the region of the gastric fundus, unchanged compared to 05/12/2016. IMPRESSION: The Dobbhoff feeding tube is unchanged in position compared to 05/12/2016. The tip of the tube remains cranially directed, located within the fundus. SERVICE DATE: 05/14/16 EXAM TYPE: RAD - XRY-PORTABLE CHEST XRAY EXAMINATION: XR PORTABLE CHEST CLINICAL INFORMATION: On ventilator. Respiratory assessment. COMPARISON: 05/13/2016 TECHNIQUE: Portable view of the chest was obtained. FINDINGS: Tracheostomy tube terminates 6 cm from the ching. Right IJ central venous catheter terminates at the cavoatrial junction. Gastric decompression tube extends into the stomach with side-port near the GE junction. Lung volumes are low. There is bibasilar atelectasis. No superimposed consolidation is identified. Prominence of the cardiac silhouette and pulmonary vasculature likely due enlarged prior to the limited inspiration. Soft tissue anchors are present within the right humeral head. IMPRESSION: Low lung volumes. No acute pulmonary findings. SERVICE DATE: 05/14/16 EXAM TYPE: RAD - HKO-[id number]-CRQBWQ VIEW EXAMINATION: XR ABDOMEN CLINICAL INDICATION: History of repair of perforated duodenal ulcer. Evaluate Dobbhoff feeding tube position. COMPARISON: 05/12/2016 and 05/13/2016. TECHNIQUE: Abdomen, AP view (KUB) FINDINGS: A drainage catheter projects over the upper abdomen. The Dobbhoff feeding tube remains coiled within the proximal stomach, its tip directed cranially toward the region of the fundus, unchanged in position relative to the recent comparison examinations. Enteric contrast is present within the nondilated colon. IMPRESSION: The Dobbhoff feeding tube remain stable in position within the proximal stomach, its tip located within the fundus. SERVICE DATE: 05/15/16 EXAM TYPE: RAD - ZDH-NOBURWI-WEAQVN VIEW EXAMINATION: XR ABDOMEN CLINICAL INDICATION: Perforated duodenal ulcer status post repair. Confirm Dobbhoff tube position. COMPARISON: Abdomen 05/14/2016 TECHNIQUE: AP supine view the abdomen is obtained. FINDINGS: The feeding tube is partially visualized in the left upper quadrant and appears to be in the proximal stomach. The tip is not seen. There is a drain in the right lower quadrant. The bowel gas pattern is unremarkable. IMPRESSION: Feeding tube partially visualized and appears to be in the proximal stomach. SERVICE DATE: 05/15/16 EXAM TYPE: US - FLUORO GUID VENOUS ACCESS; INTERVENTIONAL SETUP; US-GUIDANCE VASCULAR ACCESS RIGHT-SIDED TUNNELED PROLINE CATHETER PLACEMENT INTERVENTIONAL RADIOLOGIST: Ayden Hoffman M.D. CLINICAL INDICATION: Needs IV access for long-term antibiotics. ACCESS: Right internal jugular vein and right chest wall. GUIDANCE: Ultrasound and Fluoroscopy 22 seconds. SEDATION: The patient was on a propofol drip, and therefore conscious sedation was not utilized. A registered nurse monitored the patient and the patient's vital signs throughout the procedure. COMPLICATIONS: None. CONTRAST: None. INFORMED CONSENT: Informed consent was obtained from the patient's title insurance sales representative yesterday by Dr. Jaspreet Scales prior to the procedure. During this process, the procedure and potential alternatives were explained, along with the intended outcome and benefits. The risks of the procedure including the possibility of an unsuccessful procedure, as well as the risk of not doing the procedure were discussed. The title insurance sales representative was given the opportunity to ask questions regarding the procedure and appeared competent to make decisions. A signed consent form documenting this discussion was placed in the medical record. A time out procedure was performed. DESCRIPTION: The right neck and chest wall were prepped and draped. Ultrasound guidance for vascular access was utilized with ultrasound evaluation of the potential access site and documentation that the right internal jugular vein was patent. Under real-time ultrasound, I visualized the vascular needle entry and recorded and reported US images from this in our PACS system. Under fluoroscopic guidance, a 0.018 guidewire was advanced into the right atrium. Fluoroscopic landmarks were utilized to calculate the catheter length. A tunnel was then created along the right chest wall to the jugular puncture site. A 6-[place] Pro-Line catheter was then pulled through the tunnel. A 7-[place] peel-away sheath was then placed into the right jugular vein. During a breath-hold, the Pro-Line was passed through the peel-away sheath and positioned with its tip in the mid-right atrium. The peel-away sheath was removed and the wings of the catheter were secured to the skin using 0 silk. The jugular entry site was closed with Dermabond. The lumens of the Pro-Line catheter were flushed with normal saline and then hep-lock. A sterile dressing was applied. IMPRESSION: Successful placement of tunneled right sided jugular Pro-Line catheter. SERVICE DATE: 05/15/16 EXAM TYPE: RAD - XRY-PORTABLE CHEST XRAY EXAMINATION: XR PORTABLE CHEST CLINICAL INFORMATION: Tracheostomy in place. Status post right-sided tunnel proline catheter placement. COMPARISON: Chest done on 05/14/2016. TECHNIQUE: Portable view of the chest was obtained. FINDINGS: There is a new right-sided central catheter identified, tip of the catheter is projecting at the level of the proximal to mid superior vena cava. The exact positioning of the catheter is difficult since part of the catheter is obscured by overlying monitoring device. Tracheostomy tube is identified, unchanged. Enteric tube is visualized, unchanged. Both lung nathan are symmetrically expanded. The cardiomediastinal silhouette is enlarged. IMPRESSION: Interval placement of a right-sided central catheter with its tip projecting at the level of the proximal to mid superior vena cava. SERVICE DATE: 05/16/16 EXAM TYPE: RAD - [id number]-[id number]-[id number] VIEW EXAMINATION: XR ABDOMEN CLINICAL INDICATION: Confirm placement of Dobbhoff tube. COMPARISON: KUB dated 05/15/2016 and 05/14/2016. TECHNIQUE: Single frontal view of the abdomen. FINDINGS: Feeding tube is seen coiled back upon itself in the stomach with tip pointing cephalad in region of the GE junction, unchanged from prior exam. Right upper quadrant drain is again noted. Some residual barium is seen within the colon. IMPRESSION: Feeding tube coiled back upon itself with tip pointing cephalad in region of the GE junction. This should ideally be repositioned with tip directed into the third/fourth portion of the duodenum. SERVICE DATE: 05/16/16 EXAM TYPE: IR - ROOM TIME >1 HOUR EXAMINATION: Fluoroscopic guided upper GI evaluation. Fluoroscopic guided placement of small bowel feeding tube. CLINICAL INFORMATION: Patient with perforated duodenal ulcer status post repair. Needs nasogastric tube for feeds. However, the existing tube remains malpositioned in the stomach proximal to the duodenal repair. COMPARISON: X-ray 05/16/2016 TECHNIQUE/PROCEDURE/FINDINGS: Initially, 30 mL of contrast mixed with saline was injected through the patient's existing nasogastric tube to evaluate for patency of the duodenum and position of the existing feeding tube. The existing tube was flipped towards the GE junction, embedded in the stomach mucosa. There is contrast seen extending towards the duodenum. A stiff Glidewire was inserted through the feeding tube. The tube was repositioned and eventually negotiated beyond the eye worse to the proximal small bowel. Final position was confirmed with injection of contrast. FLUOROSCOPY TIME: 314 seconds IMPRESSION: Successful repositioning of the feeding tube into the second part of the duodenum, distal to the existing abdominal drain. SERVICE DATE: 05/17/16- EXAM TYPE: RAD - XRY-PORTABLE ABDOMEN EXAMINATION: XR PORTABLE ABDOMEN CLINICAL INFORMATION: Assess feeding tube position. COMPARISON: Prior abdominal radiography 05/17/2016. TECHNIQUE: Frontal view of the abdomen was obtained. FINDINGS/IMPRESSION: An enteric tube terminates over the stomach. Note should be made that this does not clearly represent a Dobbhoff tube (question if this represents an NG/OG tube). The Dobbhoff tube demonstrated on most recent abdominal radiograph in the duodenum is no longer visualized. Nonobstructive bowel gas pattern. Right upper quadrant drain is redemonstrated. SERVICE DATE: 05/17/1606 EXAM TYPE: RAD - [id number]-[id number]-XIFQIK VIEW EXAMINATION: XR ABDOMEN CLINICAL INDICATION: Dobbhoff tube in place. Confirm position. COMPARISON: None. TECHNIQUE: Single AP view. FINDINGS: Recently placed Dobbhoff catheter tip lies beyond the stomach in the third segment of the duodenum. Minimal gas is seen in the colon. There are 2 surgical annie seen in the mid abdomen from previous intervention. IMPRESSION: Tip of Dobbhoff tube lies in the third segment of the duodenum. There is minimal gas in the colon and small bowel loops but no suggestion for bowel distention seen. SERVICE DATE: 05/21/16 EXAM TYPE: RAD - XRY-PORTABLE CHEST XRAY EXAMINATION: XR PORTABLE CHEST CLINICAL INFORMATION: 51-year-old man post nasogastric tube placement. COMPARISON: 05/18/2016 radiographs TECHNIQUE: Portable view of the chest was obtained. FINDINGS: A nasogastric tube is seen with its tip projecting over the gastric fundus. A right IJ central venous catheter is noted with its tip projecting over the distal SVC. The tip of an endotracheal tube is about 5.5 cm from the ching. Lung volumes are low, although visualized portions of the lungs are well aerated. IMPRESSION: Satisfactory radiographic appearance of a nasogastric tube. SERVICE DATE: 05/23/16 EXAM TYPE: CAT - CT ABD & PELVIS W ORAL & IV CO EXAMINATION: CT ABDOMEN AND PELVIS WITH CONTRAST CLINICAL INFORMATION: Perforated duodenal ulcer. Status post repair. Elevated lipase levels. Evaluate for pancreatitis. COMPARISON: CT chest, abdomen and pelvis 05/12/2016. TECHNIQUE: Multidetector volumetric imaging was performed of the abdomen and pelvis before and after the IV administration of 94 mL of Optiray 320 intravenous contrast. Sagittal and coronal reformatted images were obtained on the technologist's workstation. DLP: 1453 mGy-cm. FINDINGS: LUNG BASES: Evaluation of the included lung bases demonstrates a trace right-sided pleural effusion. There is a partially visualized elongated opacity along the right major fissure measuring 1.6 cm, slightly less conspicuous relative to the prior examination. The heart is normal in size, without significant pericardial effusion. LIVER, GALLBLADDER, AND BILIARY TREE: Redemonstrated are postsurgical changes related to repair of a perforated duodenal ulcer. Previously noted periduodenal edema appears slightly improved relative to the prior exam. There is stable course and positioning of the percutaneous surgical drain, which is again visualized traversing the left lateral intra-abdominal wall and terminating within the inferior region of the gallbladder fossa. In comparison to the prior examination, there has been slight interval decrease in previously noted perihepatic ascites. The liver is again noted to be enlarged and is visualized measuring approximately 22 cm in length. The liver remains lobular in contour. No focal hepatic lesions are identified and there is no appreciable biliary ductal dilatation. The gallbladder is decompressed. Hyperdensity within the gallbladder lumen is nonspecific but could reflect biliary sludge. Gallbladder wall thickening is also entirely nonspecific and may represent mucosal edema of the gallbladder wall secondary to adjacent perihepatic ascites. No gallstones are identified. PANCREAS: No significant peripancreatic inflammatory changes or fluid collections. However, please note that lack of CT findings of acute pancreatitis does not exclude the diagnosis. SPLEEN: Mild splenomegaly, with the spleen visualized measuring approximately 17 cm in craniocaudal dimension, not significantly changed relative to the prior exam. ADRENAL GLANDS: Unremarkable. KIDNEYS AND URETERS: The kidneys are normal in size and enhance homogeneously, without focal lesions. There is no appreciable nephrolithiasis or hydroureteronephrosis of either kidney or renal collecting system. No ureteral stones are identified. BLADDER: Partially obscured secondary to streak artifact from total left hip arthroplasty. GASTROINTESTINAL TRACT: Oral contrast is visualized opacifying the stomach as well as the proximal duodenum and small bowel. There is no appreciable extravasation to suggest a small bowel leak. Contrast is also visualized opacifying the cecum and ascending colon as well as portions of the transverse colon. Abdominal and pelvic bowel loops are normal in caliber, without findings indicative of obstruction. Redemonstrated is scattered colonic diverticulosis, most extensive along the descending and rectosigmoid colon, without secondary signs of acute diverticulitis. There is a small amount of intra-abdominal ascites, notably within the right perihepatic region. The appendix is not clearly visualized on this examination. There are no extraluminal foci of air to suggest perforation. No organizing intra-abdominal or pelvic fluid collections are identified. ABDOMINAL WALL: Small fat-containing bilateral inguinal hernias. LYMPH NODES: Mildly prominent mesenteric lymph nodes, notably within the babak hepatis, likely reactive. No significant retroperitoneal or deep pelvic adenopathy. VASCULAR: Patent abdominal vasculature. Normal course and caliber of the abdominal aorta and its branching vessels, without aneurysmal dilatation. PELVIC VISCERA: Partially obscured secondary to streak artifact from total left hip arthroplasty. OSSEOUS STRUCTURES: As noted above, there is mechanical hardware related to total left hip arthroplasty. No acute osseous abnormality is identified. There are no visible destructive osseous lesions. IMPRESSION: 1. Stable postsurgical changes related to prior repair of a perforated duodenal ulcer. Previously noted periduodenal edema appears slightly improved relative to the prior examination. There is small volume perihepatic ascites. No organizing intra-abdominal or pelvic fluid collections are identified. No extraluminal foci of air to suggest perforation. 2. No significant peripancreatic inflammatory changes to suggest acute pancreatitis. However, please note that lack of CT findings of acute pancreatitis does not exclude the diagnosis. Clinical correlation is recommended. 3. Stable hepatosplenomegaly. 4. Hyperdense material within the gallbladder lumen is nonspecific but may reflect biliary sludge. Gallbladder wall thickening is also entirely nonspecific and may represent gallbladder wall edema given adjacent perihepatic ascites and periduodenal edema. No gallstones. 5. Scattered colonic diverticulosis, without secondary signs of acute diverticulitis. SERVICE DATE: 05/25/16- EXAM TYPE: RAD - [id number]-[id number] VIEW EXAMINATION: XR ABDOMEN CLINICAL INDICATION: Clostridium difficile infection. Abdominal pain, distention and watery bowel movements. Evaluate for bowel distention and toxic megacolon. COMPARISON: CT of abdomen pelvis, 05/23/2016. TECHNIQUE: Abdomen, AP view (KUB), portable exam FINDINGS: Drainage catheter within the upper abdomen, its tip in the region of the gallbladder fossa and undersurface of the right hepatic lobe. The visualized loops of bowel are normal in size. Small bowel measures up to approximately 2.8 cm. No evidence of colonic dilatation, pneumatosis intestinalis or overt pneumoperitoneum. Skin annie project over the mid abdomen. The visualized components of a left total hip arthroplasty are intact. IMPRESSION: No acute findings in the abdomen compared to the recent CT of 05/23/2016. No evidence of bowel obstruction or toxic megacolon. 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 - Please follow up with your PCP in one week. - Please contact [facility] intensive outpatient program for an intake appointment, when his discharge date is known. It may take 1-2 weeks to get the patient into a program, so as much leadtime as possible would make for a smooth transition. To make an appointment, please call [phone]. - Please follow up if clinical suspicion of HIT, F/U testing with serotonin release assay. - Please follow up with your GI doctor after a week of discharge. - Please follow up with your thoracic surgeon Dr. Patel for tracheostomy tube - Please resume lactulose when C. Diff infection has resolved. Medications at Discharge Discharge Medications: Continue taking these medications: Lisinopril (Lisinopril) 20 MG TABLET 1 Tablet ORAL DAILY Qty = 90 Comments: Last Taken:06/24/15 [id number] AM Chondroitin Sulf/Glucosamine (Glucosamine & Chondroitin) 1 CAP CAP 1 Capsule ORAL DAILY Comments: Last Taken:NOT GIVEN IN THE HOSPITAL Time: Metoprolol Succinate (Toprol XL) [address] 1 Tablet ORAL DAILY Qty = 90 Comments: Last Taken:06/24/15 Time:1154 AM Folic Acid (Folic Acid) 1 MG TAB 1 Milligram ORAL DAILY Qty = 30 Comments: Last Taken:06/24/15 Time:1154 Meclizine HCl (Meclizine HCl) 25 MG TABLET 1 Tablet ORAL THREE TIMES DAILY Qty = 42 Atorvastatin Calcium (Atorvastatin Calcium) 40 MG TABLET 1 Tablet ORAL DAILY Qty = 30 Fluoxetine HCl (Fluoxetine HCl) 40 MG CAPSULE 1 Capsule ORAL Every Morning Qty = 30 Start taking the following new medications: Lactulose (Lactulose) 10 GRAM/15 ML SOLUTION 30 Milliliters ORAL TWICE DAILY Qty = 1800 No Refills Instructions: Please resume after C. Diff infection has resolved to maintain 2-3 bowel movements. Metronidazole (Flagyl) 250 MG TABLET 500 Milligram ORAL EVERY 8 HOURS Days = 11 No Refills Instructions: Please take through 06/07/16 Albuterol Sulfate (Albuterol Sulfate) 2.5 MG/3 ML (0.083 %) VIAL.NEB 3 Milliliters Inhale through mouth TWICE DAILY Days = 30 No Refills Omeprazole (Omeprazole) 20 MG CAPSULE.DR 40 Milligram ORAL TWICE DAILY Days = 30 No Refills Lactobac Cmb #3/Fos/Pantethine (Probiotic & Acidophilus Cap) 300MM-250 CAPSULE 1 Capsule ORAL DAILY Days = 14 No Refills Melatonin (Melatonin) 5 MG TABLET 5 Milligram ORAL AT BEDTIME Days = 30 No Refills Thiamine HCl (Vitamin B-1) 250 MG TABLET 1 Tablet ORAL DAILY Days = 90 No Refills Copies To: KATHERIN VASQUEZ,Saad JOSEPH; WILLIAM VASQUEZ,KHALIF De Jesus; YAW GUERRERO APRN; LORI VASQUEZ, JONATHAN Londono JR; ROHIT VASQUEZ,NICK Billy MD Review Statement Documenting Attending: Saad PANDEY MD
--- NOTE | 2016-05-26 14:31 | PN- Resident CRCU ---
Subjective HPI/CRCU Issues: Patient seen and examined. He is seen lying flat in bed resting comfortably. Overnight he reports that he had any frequent loose, non-bloody brown bowel movements and did not get much sleep secondary to this. He had some mild abdominal discomfort but this has since resolved. Otherwise he feels fine and has no specific complaints. Additionally he denies any headache, fever, chills, chest pain, palpitations, shortness of breath, cough, nausea, vomiting. No overnight events reported other than above. Objective Vital Signs & I&O Last 8 Hrs of Vitals and I&O: Intake & Output 05/26 1600 Intake Total 852 Output Total 850 Balance 2 Intake, IV 132 Intake, Oral 720 Number 3 Bowel Movements Output, 0 Drainage Output, Urine 850 Vitals: - Temperature: 98.0 - Heart Rate: 74-99 - Respiratory Rate: 18-22 - Systolic Blood pressure: 122-126 - Diastolic Blood pressure: 74-80 - Oxygen Saturation: 95-99% Exam General Appearance: well developed/nourished, no apparent distress, alert, awake , comfortable, obese Other Physical Findings: General -well-developed, well-nourished obese male in no acute distress HEENT - NCAT, PERRL, EOMI, anicteric sclera, tracheostomy in place Cardio - S1, S2 w/o murmurs/gallops/rubs Resp - CTA bilaterally w/o wheezing/rhochi/crackles GI -soft, nontender, nondistended, bowel sounds present, CONNIE in place without surrounding drainage or erythema Neuro - Awake and alert, CN II - XII grossly intact Extremities-+1 nonpitting bilateral lower extremity edema Current Medications: Current Medications Sig/Roberto Start time Last Medication Dose Route Stop Time Status Admin Albuterol Sulfate 3 ML BID 05/23 1000 AC 05/26 INH 0935 Fat Emulsion 450 ML 05/24 1900 DC 05/24 Intravenous IV 05/25 185 1827 Fentanyl Citrate 25 MCG Q2 PRN 05/17 1200 AC 05/19 IV 2329 Furosemide 20 MG ONCE ONE 05/26 0845 DC 05/26 IV 05/26 0846 0920 Heparin Sodium 5,000 UNIT Q8 05/23 1400 AC 05/26 (Porcine) SC 1356 Insulin Aspart 0 Q6 05/22 2359 AC 05/26 SC 1655 Lactobacillus 1 CAP DAILY 05/25 1909 AC 05/26 Acidophilus PO 0920 Lactulose 20 GM BID 05/16 2200 AC 05/25 PO 0917 Lorazepam 1 MG ONE ONE 05/26 0045 DC 05/26 PO 05/26 0046 0038 Lorazepam 1 MG Q8P PRN 05/19 0815 DC 05/19 IV 1017 Melatonin 5 MG AT BEDTIME 05/23 2200 AC 05/25 PO 2209 Metronidazole 500 MG Q8 05/26 1400 AC 05/26 PO 1652 Metronidazole 500 MG IQ8 05/25 1600 DC 05/26 N/A 1 UNIT IV 0754 Omeprazole 40 MG BID 05/23 1011 AC 05/26 PO 0920 Ondansetron HCl 4 MG Q8P PRN 04/22 0600 AC IV Patient Medication 1 UNIT ONE NR 05/26 1415 AC Teaching ED 05/26 2015 Patient Medication 1 UNIT ONE NR 05/26 0845 DC 05/26 Teaching ED 05/26 1445 0920 Total Parenteral 1 UNIT 1900 05/26 1900 Nutrition IV 05/27 1859 Total Parenteral 1 UNIT 1900 05/25 1900 AC 05/25 Nutrition IV 05/26 1859 1839 Impression/Plan Impression/Problem List Impression: Patient continues to improve, however reports frequent loose bowel movements overnight for which a C. difficile toxin assay was sent that returned positive. Lactulose was held this morning because of his bowel movements. He was started on intravenous Flagyl that was converted to oral Flagyl today. Dr. Amaya of general surgery was contacted in regards to his CONNIE line that is still in place, assessment from their team is still pending as to when it should be removed. Dr. Pickard shall be contacted tomorrow in regards to the patient's tracheostomy and its further continued care. TPN dosing was tapered today with eventual discontinuation at a later date. One dose of intravenous Lasix was given the patients newly identified lower extremity swelling. Problem list: -Clostridium difficile colitis, on metronidazole -Duodenal ulcer perforation status post surgical repair, now stable -Sepsis, now resolved -Delirium, now resolved -History of alcohol abuse Gastrointestinal: Patient admitted for perforated duodenal ulcer complicated with peritonitis. Currently status post status post surgical repair. -CONNIE tubes #[address] -TPN nutrition to be continued, currently being tapered -Calorie counts -Omeprazole 40mg PO BID -Lactulose 20 g NG -Surgery consult following -GI consult following Infectious disease: Patient had intermittent spikes in temperature for which meropenem was prescribed for a total of 23 days in 3 different intervals. Meropenem was discontinued on 05/20/16 as patient had improved leukocytosis and remained afebrile for some time now any obvious sign of infection. Patient was identified to have Clostridium difficile colitis on 05/25/16 for which intravenous Flagyl was started. -Metronidazole 500 mg IV every 8 hours converted to oral formulation today -Infectious disease consult following Respiratory-tracheostomy in place with adequate oxygen saturation Cardiovascular - history of HTN, HLD, no active problems, continue telemetry Hematology- stable hemoglobin/hemocrit, daily CBC Diet- Consistent carbohydrate 3 started (puree/thin) DVT prophylaxis-subcutaneous heparin CODE STATUS-full code Problem List: 1. Bowel perforation Pain Ratin Tomorrow's Labs & Rationales: Basic metabolic panel-TPN nutrition Plan DVT/Prophylaxis: mechanical Code Status: Full Code
[2016-05-26 16:00] VITALS: BP 130/72
--- NOTE | 2016-05-26 20:31 | NUR ---
PT A GEN MED HOLD. PT A/OX3, FOLLOWS COMMANDS. DENIES ANY PAIN AT PRESENT. BREATH SOUND CLEAR THOUGHOUT BILATERALLY. PRODUCTIVE COUGH OF THIN DUCKWORTH SECREATIONS. #[address] WITH PASSEY-TYRA VALVE IN PLACE. ABD SOFT, NONTENDER, NONDISTENDED, POSITIVE BOWEL SOUNDS. TPN INFUSING. SKIN INTACT. VOIDS.
[2016-05-26 23:00] VITALS: BP 140/74
--- NOTE | 2016-05-27 07:39 | NUR ---
PT SLEPT ON AND OFF AFTER MELATONIN PO AND ATIVAN PO-AT 0245 PT CALLED ME INTO ROOM, STATED HE WASN'T SLEEPING WELL-REPORTED TO DR. WILSON 8MG PO GIVEN WITH GOOD EFFECT-SLEPT UNTIL AWOKEN AT 0630 FOR LABS AND 0600 MEDS. PT REMAINS A/OX3, FOLLOWING COMMANDS, DENIED ANY PAIN THOUGHOUT SHIFT. NO SOB OR RESP DISTRESS NOTED THOUGHOUT SHIFT. COUGHING UP MOD AMT OF THIN DUCKWORTH SECREATIONS. VS STABLE. LT ABD CONNIE WITH MINIMAL DRAINAGE OF GREEN BILIOUS DRAINAGE. OOB WITH ROLLING WALKER, ASSIST OF 1-GAIT STEADY. REMAINS ON TPN. SKIN INTACT. BLE 1-2+EDEMA.
[2016-05-27 08:00] VITALS: BP 120/72
[2016-05-27] MEDS ORDERED: OMEPRAZOLE20 M2 PO (09:05)
[2016-05-27] MEDS ORDERED: PROBIOTIC & AC1 EACH PO (09:05)
[2016-05-27] MEDS ORDERED: MELATONIN5 M7 PO (09:05)
[2016-05-27] MEDS ORDERED: ALBUTEROL2.5 MG/3 M INH (09:05)
[2016-05-27] MEDS ORDERED: FLAGYL250 M1 PO (09:05)
[2016-05-27] MEDS ORDERED: VITAMIN B-1250 MG PO (09:05)
--- NOTE | 2016-05-27 09:25 | PN- Pulmonary ---
Subjective HPI/Critical Care Issues: The patient is awake and alert. He had some pain with pulling out his drain. He reports that his diarrhea has improved. He offers no new complaints. Objective Current Medications: Current Medications Sig/Roberto Start time Last Medication Dose Route Stop Time Status Admin Albuterol Sulfate 3 ML BID 05/23 1000 AC 05/27 INH 0903 Fentanyl Citrate 25 MCG Q2 PRN 05/17 1200 AC 05/19 IV 2329 Heparin Sodium 5,000 UNIT Q8 05/23 1400 AC 05/27 (Porcine) SC 0651 Insulin Aspart 0 Q6 05/22 2359 AC 05/27 SC 0651 Lactobacillus 1 CAP DAILY 05/25 1909 AC 05/26 Acidophilus PO 0920 Lactulose 20 GM BID 05/16 2200 AC 05/25 PO 0917 Lorazepam 1 MG ONE ONE 05/26 2215 DC 05/26 PO 05/26 2216 2254 Melatonin 5 MG AT BEDTIME 05/23 2200 AC 05/26 PO 2113 Metronidazole 500 MG Q8 05/26 1400 AC 05/27 PO 0650 Metronidazole 500 MG IQ8 05/25 1600 DC 05/26 N/A 1 UNIT IV 0754 Omeprazole 40 MG BID 05/23 1011 AC 05/26 PO 2113 Ondansetron HCl 4 MG Q8P PRN 04/22 0600 AC IV Patient Medication 1 UNIT ONE NR 05/26 1415 NH Teaching ED 05/26 2014 Patient Medication 1 UNIT ONE NR 05/26 0845 DC 05/26 Teaching ED 05/26 1445 0920 Ramelteon 8 MG ONCE ONE 05/27 0245 DC 05/27 PO 05/27 0246 0258 Total Parenteral 1 UNIT 1900 05/26 190 AC 05/26 Nutrition IV 05/27 1859 1841 Total Parenteral 1 UNIT 1900 05/25 1900 DC 05/25 Nutrition IV 05/26 1859 1839 Vital Signs & I&O Last 24 Hrs of Vitals and I&O: Vital Signs Date Time Temp Pulse Resp B/P Pulse O2 O2 Flow FiO2 Ox Delivery Rate 05/27 0907 95 Trach Mask 28% 05/27 08 97 Trach Mask 28% 05/27 799 99.7 72 24 120/72 97 Trach Mask 28% 05/27 0000 99 Trach Mask 28% 05/26 2300 99.7 98 24 140/74 98 Trach Mask 28% 05/26 2200 96 Trach Mask 28% 05/26 1600 95 Room Air 05/26 1600 98.2 87 20 130/72 95 Room Air 05/26 1408 95 Trach Mask 28% 05/26 1154 95 Trach Mask 28% 05/26 0945 95 Trach Mask 28% Intake & Output 05/27 1600 05/27 0800 05/27 0000 Intake Total 503 520 Output Total 250 200 Balance 253 320 Intake, IV 400 Intake, Oral 120 120 Intake, 383 TPN/PPN Number 1 1 Bowel Movements Output, 0 Drainage Output, Urine 250 200 Exam General Appearance: awake, comfortable Head: atraumatic Neck: supple, trach in place Respiratory: no respiratory distress, clear anteriorly, lungs expand symmetrically, trachea midline Cardiovascular: regular rate/rhythm, tachycardia, S1 and S2 heard Abdomen: distended, BS + Extremities: warm and dry Skin: new 1+ peripheral edema Results Last 24 Hrs of Lab Results: Laboratory Tests 05/27/16 0631: Anion Gap 10, Estimated GFR > 60, BUN/Creatinine Ratio 27.1 H, Prealbumin 8.8 L, Triglycerides 87 Impression/Plan Impression/Plan Impression/Plan: 1. S/p laparoscopic Clint patch for perforated duodenal ulcer with peritonitis and fistula. 2. Respiratory failure s/p tracheostomy placement. Improved. 3. Anemia without evidence of bleeding, slight decrease in H&H. 4. Encephalopathy - significantly improved overall. 5. Fever, cultures negative, now being observed off antibiotics. 6. 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 7. Malnutrition - on TPN, appetite improved. 8. Increase in peripheral edema and ascites. Recommendations: * Continue Flagyl, follow-up ID recommendations. * Continue TPN pending improved nutrition. * Continue oral feeds. * Continue DVT and GI prophylaxis. * PT and OT to continue. * Management of drains as per surgery. * SQ heparin for DVT prophylaxis. Will monitor platelet count. * Tracheostomy sutures to be removed by surgical today prior to discharge. * Continue all supportive care. * Await transfer to [place].
--- NOTE | 2016-05-27 10:35 | Patient Discharge Instructions ---
Discharge Instructions General Discharge Information Special Instructions: - Please follow up with your PCP in one week. - Please taper TPN accordingly and remove proline accordingly. - Please contact [facility] intensive outpatient program for an intake appointment, when his discharge date is known. It may take 1-2 weeks to get the patient into a program, so as much leadtime as possible would make for a smooth transition. To make an appointment, please call [phone]. - Please follow up if clinical suspicion of HIT, F/U testing with serotonin release assay. - Please follow up with your GI doctor after a week of discharge. - Please follow up with your thoracic surgeon Dr. Patel for tracheostomy tube - please resume lactulose when C. Diff infection has resolved. Diet Recommended Diet: Diabetic (puree and thins) Activity Activity Self Limited: Yes Acute Coronary Syndrome Inclusion Criteria At DC or during hospital stay patient has or had the following: ACS DIAGNOSIS No Discharge Core Measures Meds if any: Prescribed or Continued at Discharge Meds if any: NOT Prescribed or Continued at Discharge Congestive Heart Failure Inclusion Criteria At DC or during hospital stay patient has or had the following: CHF DIAGNOSIS No Discharge Core Measures Meds if any: Prescribed or Continued at Discharge Meds if any: NOT Prescribed or Continued at Discharge Cerebrovascular accident Inclusion Criteria At DC or during hospital stay patient has or had the following: CVA/TIA Diagnosis No Discharge Core Measures Meds if any: Prescribed or Continued at Discharge Meds if any: NOT Prescribed or Continued at Discharge Venous thromboembolism Inclusion Criteria VTE Diagnosis No VTE Type NONE VTE Confirmed by (Test) NONE Discharge Core Measures - Per Current guidelines, there needs to be overlap - treatment for the first 5 days of Warfarin therapy. - If discharged on Warfarin prior to 5 days of - overlap therapy, the patient will need to be - assessed for post discharge needs including - *Post discharge parental anticoagulation - *Warfarin and/or parental anticoagulation education - *Follow up date to check INR post discharge At least 5 days overlap therapy as Inpatient No Meds if any: Prescribed or Continued at Discharge Note: Overlap Therapy is Warfarin and Anticoagulant Meds if any: NOT Prescribed or Continued at Discharge
[2016-05-27] MEDS ORDERED: LACTULOSE10 GM/153 PO (11:48)
--- NOTE | 2016-05-27 12:38 | PN- Infect Dx ---
Subjective Subjective: Afebrile without complaints. He had 10 bowel movements reported yesterday, but notes improvement overnight. He also reports discomfort at the site of the remaining CONNIE drain in the left lower abdomen. Objective Last 24 Hrs of Vital Signs/I&O Vital Signs Date Time Temp Pulse Resp B/P Pulse O2 O2 Flow FiO2 Ox Delivery Rate 05/27 0907 95 Trach Mask 28% 05/27 0800 97 Trach Mask 28% 05/27 0800 99.7 72 24 120/72 97 Trach Mask 28% 05/27 0000 99 Trach Mask 28% 05/26 2300 99.7 98 24 140/74 98 Trach Mask 28% 05/26 2200 96 Trach Mask 28% 05/26 1600 95 Room Air 05/26 1600 98.2 87 20 130/72 95 Room Air 05/26 1408 95 Trach Mask 28% Intake & Output 05/27 1600 05/27 0800 05/27 0000 Intake Total 503 520 Output Total 250 200 Balance 253 320 Intake, IV 400 Intake, Oral 120 120 Intake, 383 TPN/PPN Number 1 1 Bowel Movements Output, 0 Drainage Output, Urine 250 200 Physical Exam Other Physical Findings: He appears comfortable in no acute distress Lungs are clear Chest Pro-Line catheter in the right upper chest with no inflammation at the site Heart regular rhythm with no murmur Abdomen is soft, mildly tender on palpation diffusely, with no guarding or rebound, positive bowel sounds; CONNIE drain remains in place in the left lower quadrant with no inflammation at the site Extremities no cyanosis, clubbing or edema Results Last 24 Hours of Lab Results: Laboratory Tests 05/27 06 Chemistry Sodium (137 - 145 mmol/L) 130 L Potassium (3.5 - 5.1 mmol/L) 4.7 Chloride (98 - 107 mmol/L) 91 L Carbon Dioxide (22 - 30 mmol/L) 29 Anion Gap (5 - 16) 10 BUN (9 - 20 mg/dL) 19 Creatinine (0.7 - 1.2 mg/dL) 0.7 Estimated GFR (>60 ml/min) > 60 BUN/Creatinine Ratio (7 - 25 %) 27.1 H Prealbumin (17.6 - 36.0 mg/dL) 8.8 L Triglycerides (<150 mg/dL) 87 Last 24 Hours of Garcia Results: Stool for C. difficile May 24 positive Recent Imaging Studies: X-ray of the abdomen May 25 no evidence of bowel obstruction or toxic megacolon Assessment/Plan Impression: C. difficile infection, with recent diarrhea, likely explaining his recent leukocytosis, which has now resolved on Flagyl, Day 2, with temperatures remaining normal now 34 days status post laparoscopic Clint plication for a perforated duodenal ulcer. Suggestion: 1. Further management of his remaining CONNIE drain per Surgery 2. Would remove the Pro-Line catheter prior to discharge 3. Continue Flagyl to complete a 10-14 day course
--- NOTE | 2016-05-27 13:49 | NUR ---
Physical Therapy. Pt unavailable for treatment at this time, receiving medication for anxiety and surgerical PA waiting to take out drain. Pt scheduled for d/c today to [facility]. PT will f/u as appropriate.
--- NOTE | 2016-05-27 14:39 | PN- Resident CRCU ---
Subjective HPI/CRCU Issues: Patient seen and examined. He is seen lying flat in bed resting comfortably. He reports not sleeping well last night due to anxiety despite taking melatonin and Ativan. Otherwise he reports minimal abdominal pain and fullness. He continues report loose bowel movements, however the frequency has decreased. He states that he feels safe to be discharged to the rehabilitation center today. Additionally he denies any headache, fever, chills, chest pain, palpitations, shortness breath, nausea, vomiting. No overnight events reported. Objective Vital Signs & I&O Last 8 Hrs of Vitals and I&O: Vitals: - Temperature: 98.2 - Heart Rate: 101 - Respiratory Rate: 18-27 - Systolic Blood pressure: 98-110 - Diastolic Blood pressure: 64-70 - Oxygen Saturation: 94-98% via tracheostomy on 28% FiO2 Exam General Appearance: well developed/nourished, no apparent distress, alert, awake , comfortable, obese Other Physical Findings: General -well-developed, well-nourished obese male in no acute distress HEENT - NCAT, PERRL, EOMI, anicteric sclera, tracheostomy in place Cardio/chest - S1, S2 w/o murmurs/gallops/rubs, proline in place Resp - CTA bilaterally w/o wheezing/rhochi/crackles GI -soft, obese, mildly distended, nontender, bowel sounds present, CONNIE line removed site clean Neuro - Awake and alert, CN II - XII grossly intact Current Medications: Current Medications Sig/Roberto Start time Last Medication Dose Route Stop Time Status Admin Albuterol Sulfate 3 ML BID 05/23 1000 AC 05/27 INH 0903 Fentanyl Citrate 25 MCG Q2 PRN 05/17 1200 AC 05/19 IV 2329 Heparin Sodium 5,000 UNIT Q8 05/23 1400 AC 05/27 (Porcine) SC 1333 Insulin Aspart 0 Q6 05/22 2359 AC 05/27 SC 1221 Lactobacillus 1 CAP DAILY 05/25 1909 AC 05/27 Acidophilus PO 0952 Lactulose 20 GM BID 05/16 2200 DC 05/25 PO 0917 Lorazepam 1 MG ONE ONE 05/27 1330 DC 05/27 PO 05/27 1331 1333 Lorazepam 1 MG ONE ONE 05/26 2215 DC 05/26 PO 05/26 221 2254 Melatonin 5 MG AT BEDTIME 05/23 2200 AC 05/26 PO 2113 Metronidazole 500 MG Q8 05/26 1400 AC 05/27 PO 1333 Omeprazole 40 MG BID 05/23 1011 AC 05/27 PO 0952 Ondansetron HCl 4 MG Q8P PRN 04/22 0600 AC IV Patient Medication 1 UNIT ONE NR 05/26 1415 DC Teaching ED 05/26 2014 Patient Medication 1 UNIT ONE NR 05/26 0845 DC 05/26 Teaching ED 05/26 1445 0920 Ramelteon 8 MG ONCE ONE 05/27 0245 DC 05/27 PO 05/27 0246 0258 Total Parenteral 1 UNIT 1900 05/27 1900 AC Nutrition IV 05/28 1859 Total Parenteral 1 UNIT 1900 05/26 1900 AC 05/26 Nutrition IV 05/27 1859 1841 Total Parenteral 1 UNIT 1900 05/25 1900 DC 05/25 Nutrition IV 05/26 1859 1839 Impression/Plan Impression/Problem List Impression: Patient was seen by a sales representative metals from [facility] today. He is to be discharged to their facility pending insurance approval. Tracheostomy sutures and CONNIE line were removed by surgery today. Patient reports feeling well and continues to tolerate his metronidazole medication for his C. difficile colitis. He is to be discharged with the tracheostomy and proline in place and to be tapered off of TPN at the facility. He is to follow-up with gastroenterology (Dr. Hernandez) as needed for abdominal discomfort and assessment for therapeutic paracentesis. He is to resume lactulose when he completes his metronidazole medication. Problem list: -Clostridium difficile colitis, on metronidazole -Duodenal ulcer perforation status post surgical repair, now stable -Sepsis, now resolved -Delirium, now resolved -History of alcohol abuse Gastrointestinal: Patient admitted for perforated duodenal ulcer complicated with peritonitis. Currently status post status post surgical repair. -CONNIE line removed -TPN nutrition to be continued, currently being tapered -Calorie counts -Omeprazole 40mg PO BID -Lactulose 20 g NG -Surgery consult following -GI consult following Infectious disease: Patient had intermittent spikes in temperature for which meropenem was prescribed for a total of 23 days in 3 different intervals. Meropenem was discontinued on 05/20/16 as patient had improved leukocytosis and remained afebrile for some time now any obvious sign of infection. Patient was identified to have Clostridium difficile colitis on 05/25/16 for which intravenous Flagyl was started. -Metronidazole 500 mg IV every 8 hours converted to oral formulation today -Infectious disease consult following Respiratory-tracheostomy in place with adequate oxygen saturation Cardiovascular - history of HTN, HLD, no active problems, continue telemetry Hematology- stable hemoglobin/hemocrit, daily CBC Diet- Consistent carbohydrate 3 started (puree/thin) DVT prophylaxis-subcutaneous heparin CODE STATUS-full code Problem List: 1. Bowel perforation Pain Ratin Tomorrow's Labs & Rationales: None Plan DVT/Prophylaxis: mechanical Code Status: Full Code
[2016-05-27 15:06] VITALS: BP 120/72
--- NOTE | 2016-05-27 15:15 | PN- General Surgery ---
Surgical Brief Attending Note Brief Attending Note: This is an interim follow-up note. Patient has done extremely well considering his overall mobility and mortality, from a surgical standpoint we have removed all CONNIE drains. He has not demonstrated any leaking from the last CONNIE drain which is being removed today when he takes oral feeds. He has had multiple CAT scans over the course of the last several weeks none of which demonstrated any intestinal blockage or extravasation of contrast or abscess. Due to his significant cirrhotic liver I do expect that he will quickly reaccumulate ascites since removing the CONNIE drains remained in place for almost a month. I had a discussion with him regarding alcohol and abstinence. If the patient can avoid alcohol he could possibly be a candidate for liver transplant I would encourage him to seek consultation with the transplant service at [facility]. I do not think that his ascites could be completely eradicated but he should have close follow-up with a post form remover or phototypesetter operator. If his abdomen becomes tense and uncomfortable he may require occasional paracentesis. The present time his albumin is 2.8 he should continue to improve as his oral intake improves. He may have some leakage of serous fluid from the prior trocar sites. The tracheostomy should be handled by Dr. Pickard. The patient has C. difficile although plans are for him to be transferred to [place].
[2016-05-27 16:00] VITALS: BP 130/72
--- NOTE | 2016-05-27 17:31 | NUR ---
@1600-PT ALERT AND ORIENTED, CALM AND COOP. VSS. TEMP 99.1. FOLLOWS COMMANDS. CONT ON T, 28% TM CONT TO #9 PORTEX TRACH. TRACH CARE PROVIDED. SUTURED REMOVED ON DAY SHIFT, AREA CLEANSED WITH NS. AREA NOTED TO BE TENDER AND EXCORIATED. BACITRACIN APPLIED TO AREA AND NEW MICHELLE DSG APPLIED. CONT GENMED HOLD. PLAN FOR DISCHARGE TO [place] TOMORROW PENDING ON INSURANCE AUTHORIZATION. PT LAMAR PO DIET. CONT ON TPN AT 50ML/HR. PT VOIDS IN URINAL. SKIN INTACT EXCEPT TRACE BLE EDEMA NOTED. DSG TO L ABD-PREV CONNIE SITE WHICH WAS REMOVED TODAY. DSG CDI. RCW PROLINE NOTED WITH TPN INFUSING. PT BELONGING OF WALLET AND JEWELRY RETURNED BACK TO FAMILY IN FRONT OF PT. CONT TO MONITOR, CALL ALEXANDRA HARRELL.
--- NOTE | 2016-05-27 20:19 | NUR ---
PT GEN MED HOLD. PT A/OX3, FOLLOWS COMMANDS. DENIES ANY PAIN AT PRESENT. BREATH SOUND CLEAR WITH DIMINISHED BREATH SOUNDS AT BASES BILATERALLY. PRODUCTIVE COUGH OF MOD AMT OF THIN YELLOW SECREATIONS NOTED. NO SOB OR RESP DISTRESS NOTED AT PRESENT. #[address] WITH PASSEY TYRA VALVE IN PLACE. VS STABLE AT PRESENT. ABD SOFT, NONTENDER, NONDISTENDED, POSITIVE BOWEL SOUNDS. VOIDING CLEAR PATRICK URINE. SKIN INTACT. OOB TO BR WITH ROLLING WALKER, MINIMAL ASSIST OF 1
[2016-05-27 23:00] VITALS: BP 134/70
--- NOTE | 2016-05-28 05:58 | PN- General Surgery ---
Subjective Subjective: NAEO. Patient without new c/o. No pain. Neck irritation improved. Denies CP/ SOB. Objective Vital Signs and I&Os Vital Signs Date Time Temp Pulse Resp B/P Pulse O2 O2 Flow FiO2 Ox Delivery Rate 05/28 0000 94 Trach Mask 28% 05/27 2300 100.7 100 24 134/70 94 Trach Mask 28% 05/27 1643 Trach Mask 28% 05/27 1600 95 Trach Mask 28% 05/27 1600 99.1 96 22 130/72 98 Trach Mask 28% 05/27 1506 98.6 72 24 120/72 /03 1200 98.6 /03 0907 95 Trach Mask 28% 05/27 0800 97 Trach Mask 28% 05/27 0800 99.7 72 24 120/72 97 Trach Mask 28% Intake & Output 05/28 0800 / 0000 /03 1600 / 0800 05/27 0000 05/26 1600 Intake Total 389 880 503 520 852 Output Total 250 200 850 Balance 389 880 253 320 2 Intake, IV 400 400 132 Intake, Oral 120 480 120 120 720 Intake, 269 383 TPN/PPN Number 1 2 1 1 3 Bowel Movements Output, 0 0 Drainage Output, Urine 250 200 850 Physical Exam: Gen: NAD, comfortable, A&Ox3 Neck: Trach in place with mild surrounding erythema and drainage, patent. Chest: CTAB, RRR Abd: Soft, NT, ND. Dressing c/d/i. Ext: No calve swelling/TTP Current Medications: Current Medications Sig/Roberto Start time Last Medication Dose Route Stop Time Status Admin Albuterol Sulfate 3 ML BID 05/23 1000 AC 05/27 INH 1639 Fentanyl Citrate 25 MCG Q2 PRN 05/17 1200 AC 05/19 IV 2329 Heparin Sodium 5,000 UNIT Q8 05/23 1400 AC 05/27 (Porcine) SC 2145 Insulin Aspart 0 Q6 05/22 2359 AC 05/27 SC 2303 Lactobacillus 1 CAP DAILY 05/25 1909 AC 05/27 Acidophilus PO 0952 Lactulose 20 GM BID 05/16 2200 DC 05/25 PO 0917 Lorazepam 1 MG ONE ONE 05/27 2130 DC 05/27 PO 05/27 213 2251 Lorazepam 1 MG ONE ONE 05/27 1330 DC 05/27 PO 05/27 1331 1333 Melatonin 5 MG AT BEDTIME 05/23 2200 AC 05/27 PO 2251 Metronidazole 500 MG Q8 05/26 1400 AC 05/27 PO 2143 Omeprazole 40 MG BID 05/23 1011 AC 05/27 PO 2143 Ondansetron HCl 4 MG Q8P PRN 04/22 0600 AC IV Total Parenteral 1 UNIT 05/27 1900 AC 05/27 Nutrition IV 05/28 1858 194 Total Parenteral 1 UNIT 05/26 190 DC 05/26 Nutrition IV 05/27 185 184 Results Last 48 Hours of Labs: Laboratory Tests 05/27 05/26 0631 0555 Chemistry Sodium (137 - 145 mmol/L) 130 L 131 L Potassium (3.5 - 5.1 mmol/L) 4.7 4.1 Chloride (98 - 107 mmol/L) 91 L 91 L Carbon Dioxide (22 - 30 mmol/L) 29 31 H Anion Gap (5 - 16) 10 9 BUN (9 - 20 mg/dL) 19 17 Creatinine (0.7 - 1.2 mg/dL) 0.7 0.7 Estimated GFR (>60 ml/min) > 60 > 60 BUN/Creatinine Ratio (7 - 25 %) 27.1 H Glucose (65 - 99 mg/dL) 166 H Calcium (8.4 - 10.2 mg/dL) 9.3 Phosphorus (2.5 - 4.5 mg/dL) 4.4 Magnesium (1.6 - 2.3 mg/dL) 2.1 Total Bilirubin (0.2 - 1.3 mg/dL) 1.9 H AST (17 - 59 U/L) 79 H ALT (21 - 72 U/L) 60 Albumin (3.5 - 5.0 g/dL) 2.8 L Prealbumin (17.6 - 36.0 mg/dL) 8.8 L Triglycerides (<150 mg/dL) 87 Hematology CBC w Diff NO MAN DIFF REQ WBC (4.8 - 10.8 /CUMM) 9.7 RBC (4.70 - 6.10 /CUMM) 2.87 L Hgb (14.0 - 18.0 G/DL) 8.9 L Hct (42 - 52 %) 26.3 L MCV (80.0 - 94.0 FL) 91.6 MCH (27.0 - 31.0 PG) 30.9 RDW (11.5 - 14.5 %) 15.5 H Plt Count (130 - 400 /CUMM) 199 MPV (7.4 - 10.4 FL) 9.3 Gran % (42.2 - 75.2 %) 77.6 H Lymphocytes % (20.5 - 51.1 %) 10.2 L Monocytes % (1.7 - 9.3 %) 9.6 H Eosinophils % (0 - 5 %) 2.5 Basophils % (0.0 - 2.0 %) 0.1 Absolute Granulocytes (1.4 - 6.5 /CUMM) 7.5 H Absolute Lymphocytes (1.2 - 3.4 /CUMM) 1.0 L Absolute Monocytes (0.10 - 0.60 /CUMM) 0.9 H Absolute Eosinophils (0.0 - 0.7 /CUMM) 0.2 Absolute Basophils (0.0 - 0.2 /CUMM) 0 PUBS MCHC (33.0 - 37.0 G/DL) 33.7 Assessment/Plan Assessment/Plan 51yo M s/p Clint patch repair of perforated duodenal ulcer. Continues to tolerate a regular diet without issue and his pain is under adequate control. Recommendation: -Wean TPN and expectation of possible discharge in the next few days -Out of bed and work with physical therapy -Tight glycemic control -Continue current pain regiment -change dressing PRN -TRC -GI and DVT prophylaxis -Care per primary team -OK to dc to rehab
[2016-05-28 06:56] VITALS: BP 144/78
--- NOTE | 2016-05-28 06:57 | NUR ---
PT SLEPT MOST OF NIGHT. CONTINUES TO COUGH UP SM TO MOD AMT OF THIN YELLOW SECREATIONS. NO SOB OR RESP DISTRESS NOTED THOUGHOUT SHIFT. VS STABLE THOUGHOUT SHIFT. VOIDING PATRICK URINE. REMAINS ON TPN. SKIN INTACT
--- NOTE | 2016-05-28 07:42 | NUR ---
@0800-PT ALERT AND ORIENTED, CALM AND COOP. VSS. AFEBRILE. CONT ON TM 28%. TRACH CARE PROVIDED. SUCTION PRN. NEW DSG APPLIED. WILL CHANGE INNER CANNULA THIS AM. PASSY PASCALE VALVE IN PLACE. CONT GM HOLD. BP STABLE. AWAITING BREAKFAST THIS AM. AMBULATED TO BATHROOM FOR BM. PT VOIDS IN URINAL. TPN INFUSING THROUGH RCW PROLINE INFUSING AT 50ML/HR. NO LABS DRAWN THIS AM. CONT TO MONITOR, CALL [facility] WITHIN REACH.
[2016-05-28 07:52] VITALS: BP 120/70
--- NOTE | 2016-05-28 08:51 | PN- Pulmonary ---
Subjective HPI/Critical Care Issues: Patient is awake and alert. He reports feeling some slight increased abdominal distention. He no longer has any CONNIE drains in place. He has no pain. He had one low grade temp of 100.7, but is otherwise afebrile. He still has multiple episodes of diarrhea however this is improved overall. Objective Current Medications: Current Medications Sig/Roberto Start time Last Medication Dose Route Stop Time Status Admin Albuterol Sulfate 3 ML BID 05/23 1000 AC 05/27 INH 1639 Fentanyl Citrate 25 MCG Q2 PRN 05/17 1200 AC 05/19 IV 2329 Heparin Sodium 5,000 UNIT Q8 05/23 1400 AC 05/28 (Porcine) SC 0619 Insulin Aspart 0 Q6 05/22 2359 AC 05/28 SC 0618 Lactobacillus 1 CAP DAILY 05/25 1909 AC 05/27 Acidophilus PO 0952 Lactulose 20 GM BID 05/16 2200 DC 05/25 PO 0917 Lorazepam 1 MG ONE ONE 05/27 2130 DC 05/27 PO 05/27 2131 2251 Lorazepam 1 MG ONE ONE 05/27 1330 DC 05/27 PO 05/27 1331 1333 Melatonin 5 MG AT BEDTIME 05/23 2200 AC 05/27 PO 2251 Metronidazole 500 MG Q8 05/26 1400 AC 05/28 PO 0618 Omeprazole 40 MG BID 05/23 1011 AC 05/27 PO 2143 Ondansetron HCl 4 MG Q8P PRN 04/22 0600 AC IV Total Parenteral 1 UNIT 1900 05/27 1900 AC 05/27 Nutrition IV 05/28 1859 1949 Total Parenteral 1 UNIT 1900 05/26 1900 DC 05/26 Nutrition IV 05/27 1859 1841 Vital Signs & I&O Last 24 Hrs of Vitals and I&O: Vital Signs Date Time Temp Pulse Resp B/P Pulse O2 O2 Flow FiO2 Ox Delivery Rate 05/28 0752 96 Trach Mask 28% 05/28 0752 98.7 100 20 120/70 96 Trach Mask 28% 05/28 0656 98.8 99 20 144/78 96 Trach Mask 28% 05/28 0000 94 Trach Mask 28% 05/27 2300 100.7 100 24 134/70 94 Trach Mask 28% 05/27 1643 Trach Mask 28% 05/27 1600 95 Trach Mask 28% 05/27 1600 99.1 96 22 130/72 98 Trach Mask 28% 05/27 1506 98.6 72 24 120/72 05/27 1200 98.6 05/27 0907 95 Trach Mask 28% Intake & Output 05/28 1600 05/28 0800 05/28 0000 Intake Total 432 389 Output Total 675 Balance -243 389 Intake, Oral 120 Intake, 432 269 TPN/PPN Number 0 1 Bowel Movements Output, Urine 675 Exam General Appearance: awake, comfortable Head: atraumatic Neck: supple, trach in place, no rash Respiratory: no respiratory distress, clear lung nathan, lungs expand symmetrically, trachea midline Cardiovascular: regular rate/rhythm, tachycardia, S1 and S2 heard Abdomen: distended, BS + Extremities: warm and dry Skin: trace peripheral edema Impression/Plan Impression/Plan Impression/Plan: 1. S/p laparoscopic Clint patch for perforated duodenal ulcer with peritonitis and fistula - improved. 2. Respiratory failure s/p tracheostomy placement. Improved. 3. Anemia without evidence of bleeding, slight decrease in H&H. 4. Peripheral edema and ascites - the patient may require periodic abdominal paracentesis. 5. Improve nutrition, TPN to be weaned. 6. 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 Recommendations: * Complete course of Flagyl. * Wean TPN down to off as recommended by nutrition. * Discontinue Proline. * Continue oral feeds. * Continue DVT and GI prophylaxis. * PT and OT to continue. * SQ heparin for DVT prophylaxis. * Continue all supportive care. * Await transfer to [facility].
--- NOTE | 2016-05-28 10:50 | PN- Infect Dx ---
Subjective Subjective: MAXIMUM TEMPERATURE 100.7. He offers no complaints, with no further diarrhea reported. Objective Last 24 Hrs of Vital Signs/I&O Vital Signs Date Time Temp Pulse Resp B/P Pulse O2 O2 Flow FiO2 Ox Delivery Rate 05/28 0859 97 Trach Mask 28% 05/28 0752 96 Trach Mask 28% 05/28 0752 98.7 100 20 120/70 96 Trach Mask 28% 05/28 0656 98.8 99 20 144/78 96 Trach Mask 28% 05/28 0000 94 Trach Mask 28% 05/27 2300 100.7 100 24 134/70 94 Trach Mask 28% 05/27 1643 Trach Mask 28% 05/27 1600 95 Trach Mask 28% 05/27 1600 99.1 96 22 130/72 98 Trach Mask 28% 05/27 1506 98.6 72 24 120/72 05/27 1200 98.6 Intake & Output 05/28 1600 05/28 0800 05/28 0000 Intake Total 432 389 Output Total 675 Balance -243 389 Intake, Oral 120 Intake, 432 269 TPN/PPN Number 0 1 Bowel Movements Output, Urine 675 Physical Exam Other Physical Findings: He appears comfortable in no acute distress Chest Pro-Line in the right upper chest with no inflammation at the site Lungs are clear Abdomen is soft, nontender with positive bowel sounds; CONNIE drain #1 has been removed Extremities no cyanosis, clubbing or edema Results Last 24 Hours of Lab Results: No labs from today Last 24 Hours of Garcia Results: No recent cultures Assessment/Plan Impression: Doing well overall on Flagyl now Day 3 of treatment for C. difficile, with diarrhea improved and with his last white blood cell count normal. He did have a low-grade fever overnight of unclear significance and this will need to be monitored. He is now 5 weeks status post laparoscopic Clint plication for a perforated duodenal ulcer. Suggestion: 1. Would remove the Pro-Line catheter prior to discharge 2. Continue Flagyl to complete a 10-14 day course
--- NOTE | 2016-05-28 13:10 | NUR ---
@1315-PT TPN DISCONTINUED AT THIS TIME PER ORDER. REPEAT ACCUCHECK IN 1HR. PLAN FOR PT TO TRAVEL TO IR SUITE FOR REMOVAL OF RCW PROLINE. PT AWARE OF POC
--- NOTE | 2016-05-28 13:47 | NUR ---
@1330-DISTRIBUTION TRANSPORTED PT TO IR SUITE FOR REMOVAL OF PROLINE FROM RC[facility]. WILL REASSESS PT UPON RETURN TO UNIT.
--- NOTE | 2016-05-28 14:51 | NUR ---
@1430-REPEAT ACCUCHECK 1 HOUR AFTER TPN DC'D-BG 204. PT BACK FROM IR SUITE. DERMABOND NOTED TO PREV RCW PROLINE SITE. PT LAMAR WELL. CONT TO MONITOR, CALL [facility] WITHIN REACH.
[2016-05-28 16:00] VITALS: BP 120/70
--- NOTE | 2016-05-28 16:09 | INTERVENTIONAL RADIOLOGY RPT ---
PROCEDURE: REMOVAL OF TUNNELED VENOUS CATHETER CLINICAL INFORMATION: Proline no longer required. MEDICATIONS: None required. IMAGING: None required. PROCEDURE IN DETAIL: Informed consent was obtained from the patient prior to the procedure. During this process, the procedure and potential alternatives was explained, along with the intended outcome and benefits. The risks of the procedure, as well as the risk of not doing the procedure, were discussed. The patient was given the opportunity to ask questions regarding the procedure and appeared competent to make medical decisions. A signed consent form which documents this discussion was placed in the medical record. A final timeout was called. The right chest wall and catheter were prepped in a sterile fashion with maximal barrier protection. Gentle pressure was placed on the tunneled catheter and it was removed in its entirety. Pressure was held at the venotomy site for approximately 5 minutes until hemostasis was achieved. The skin was closed with Dermabond. No complications. IMPRESSION: Successful removal of right-sided tunneled catheter.
--- NOTE | 2016-05-28 22:07 | PN- Resident CRCU ---
Subjective HPI/CRCU Issues: Patient seen and examined. He is seen sitting upright in his bed resting comfortably. He reports sleeping well last night but is anxious about his discharge pending later today. He admits that he is still having frequent loose bowel movments, however they are somewhat improved. His also complains that his abdomen is much bigger in recent days and is causing him a great deal of discomfort. Otherwise he denies any headache, fever, chills, chest pain, shortness of breath , palpitations, nausea, vomiting, diarrhea. No overnight events reported. Objective Vital Signs & I&O Last 8 Hrs of Vitals and I&O: Intake & Output 05/28 1600 Intake Total 900 Output Total 1000 Balance -100 Intake, Oral 700 Intake, 200 TPN/PPN Number 2 Bowel Movements Output, Urine 1000 Exam General Appearance: well developed/nourished, no apparent distress, alert, awake , comfortable, obese Other Physical Findings: General - well developed, well nourished obese male in no acute distress HEENT - NCAT, PERRL, EOMI, anicteric sclera, tracheostomy in place CVS/Chest - S1, S2 w/o m/g/r, proline in place Resp - CTA bilaterally w/ wheezing/rhonchi/crackles GI- soft, obese, distended, nontender, bowel sounds present, CONNIE tube site with drainage Neuro - awake and alert, CN II - XII grossly intact Ext - 1+ bilateral lower extremity edema, pulses intact Current Medications: Current Medications Sig/Roberto Start time Last Medication Dose Route Stop Time Status Admin Albuterol Sulfate 3 ML BID 05/23 1000 AC 05/28 INH 2034 Fentanyl Citrate 25 MCG Q2 PRN 05/17 1200 AC 05/19 IV 2329 Heparin Sodium 5,000 UNIT Q8 05/23 1400 AC 05/28 (Porcine) SC 1633 Insulin Aspart 0 AC 05/29 0700 AC SC Insulin Aspart 0 AC & AT BEDTIME 05/28 1700 DC 05/28 SC 1703 Insulin Aspart 0 Q6 05/22 2359 DC 05/28 SC 1151 Lactobacillus 1 CAP DAILY 05/25 1909 AC 05/28 Acidophilus PO 0917 Melatonin 5 MG AT BEDTIME 05/23 2200 AC 05/27 PO 2251 Metronidazole 500 MG Q8 05/26 1400 AC 05/28 PO 1633 Omeprazole 40 MG BID 05/23 1011 AC 05/28 PO 0917 Ondansetron HCl 4 MG Q8P PRN 04/22 0600 AC IV Total Parenteral 1 UNIT 1900 05/27 1900 DC 05/27 Nutrition IV 05/28 185 194 Impression/Plan Impression/Problem List Impression: Dietary Consult was contacted today in regard to patients nutrition needs and his TPN. It was advised that he could be weaned off. IR was contacted in regards to removal of his proline as it was no longer needed after the TPN was to be discontinued. TPN was slowly weaned off and the proline was removed. He is continued on flagyl for his C. Diff colitis. Case management informed the medical team that patients insurance did not approve admission to [facility] late in the day. GI will be contacted in the morning as to when to pursue a therapeutic paracentesis. Problem list: -Clostridium difficile colitis, on metronidazole -Duodenal ulcer perforation status post surgical repair, now stable -Sepsis, now resolved -Delirium, now resolved -History of alcohol abuse Gastrointestinal: Patient admitted for perforated duodenal ulcer complicated with peritonitis. Currently status post status post surgical repair. -TPN nutrition, discontinued -Calorie counts -Omeprazole 40mg PO BID -Lactulose held for diarrhea -Surgery consult following -GI consult following Infectious disease: Patient had intermittent spikes in temperature for which meropenem was prescribed for a total of 23 days in 3 different intervals. Meropenem was discontinued on 05/20/16 as patient had improved leukocytosis and remained afebrile for some time now any obvious sign of infection. Patient was identified to have Clostridium difficile colitis on 05/25/16 for which intravenous Flagyl was started. -Metronidazole 500 mg IV every 8 hours converted to oral formulation today -Infectious disease consult following Respiratory-tracheostomy in place with adequate oxygen saturation Cardiovascular - history of HTN, HLD, no active problems, continue telemetry Hematology- stable hemoglobin/hemocrit, daily CBC Diet- Consistent carbohydrate 3 started (puree/thin) DVT prophylaxis-subcutaneous heparin CODE STATUS-full code Problem List: 1. Perforation bowel Pain Ratin Tomorrow's Labs & Rationales: None Plan DVT/Prophylaxis: mechanical Code Status: Full Code
[2016-05-29] VITALS: BP 130/80
[2016-05-29 08:00] VITALS: BP 112/70
--- NOTE | 2016-05-29 09:30 | PN- Pulmonary ---
Subjective HPI/Critical Care Issues: The patient is awake and alert. He reports feeling abdominal distention. His diarrhea has significantly improved. There were no overnight events reported. Objective Current Medications: Current Medications Sig/Roberto Start time Last Medication Dose Route Stop Time Status Admin Albuterol Sulfate 3 ML BID 05/23 1000 AC 05/28 INH 2034 Fentanyl Citrate 25 MCG Q2 PRN 05/17 1200 AC 05/19 IV 2329 Guaifenesin 10 ML Q6P PRN 05/28 2230 AC 05/28 PO 2240 Heparin Sodium 5,000 UNIT Q8 05/23 1400 AC 05/29 (Porcine) SC 0546 Insulin Aspart 0 AC 05/29 0700 AC SC Insulin Aspart 0 AC & AT BEDTIME 05/28 1700 DC 05/28 SC 1703 Insulin Aspart 0 Q6 05/22 2359 DC 05/28 SC 1151 Lactobacillus 1 CAP DAILY 05/25 1909 AC 05/29 Acidophilus PO 0831 Lorazepam 1 MG ONE ONE 05/28 2300 DC 05/28 PO 05/28 2301 2304 Melatonin 5 MG AT BEDTIME 05/23 2200 AC 05/28 PO 2232 Metronidazole 500 MG Q8 05/26 1400 AC 05/29 PO 0546 Omeprazole 40 MG BID 05/23 1011 AC 05/29 PO 0831 Ondansetron HCl 4 MG Q8P PRN 04/22 0600 AC IV Total Parenteral 1 UNIT 1900 05/27 1900 DC 05/27 Nutrition IV 05/28 1859 1949 Vital Signs & I&O Last 24 Hrs of Vitals and I&O: Vital Signs Date Time Temp Pulse Resp B/P Pulse O2 O2 Flow FiO2 Ox Delivery Rate 05/29 799 94 Room Air 05/29 799 99.0 74 22 112/70 94 Trach Mask 28% 05/29 0546 98 Trach Mask 28% 05/29 0000 96 Trach Mask 28% 05/29 0000 98.5 96 20 130/80 96 Trach Mask 28% 05/28 1630 96 Trach Mask 28% 05/28 1600 96 Trach Mask 28% 05/28 1600 98.8 96 20 120/70 97 Trach Mask 28% 05/28 1200 97 Trach Mask 28% Intake & Output 05/29 1600 05/29 0800 05/29 0000 Intake Total 150 240 Output Total 450 Balance -300 240 Intake, IV 0 0 Intake, Oral 150 240 Number 1 1 Bowel Movements Output, Urine 450 Exam General Appearance: awake, comfortable Head: atraumatic Neck: supple, trach in place, no rash Respiratory: no respiratory distress, clear lung nathan, lungs expand symmetrically, trachea midline Cardiovascular: regular rate/rhythm, tachycardia, S1 and S2 heard Abdomen: distended, BS + Extremities: warm and dry Skin: trace peripheral edema Impression/Plan Impression/Plan Impression/Plan: 1. S/p laparoscopic Clint patch for perforated duodenal ulcer with peritonitis and fistula - improved. 2. Respiratory failure s/p tracheostomy placement. Improved. 3. Anemia without evidence of bleeding, slight decrease in H&H. 4. Peripheral edema and ascites - the patient may require periodic abdominal paracentesis. 5. Improve nutrition, TPN to be weaned. 6. 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 Recommendations: * Abdominal paracentesis ordered for today. * Complete course of Flagyl. * Continue oral feeds. * Continue DVT and GI prophylaxis. * PT and OT to continue. * SQ heparin for DVT prophylaxis. * Continue all supportive care. * Await transfer to [facility].
--- NOTE | 2016-05-29 11:20 | PN- Infect Dx ---
Subjective Subjective: Afebrile. His diarrhea has improved. He does note abdominal discomfort and distention. Objective Last 24 Hrs of Vital Signs/I&O Vital Signs Date Time Temp Pulse Resp B/P Pulse O2 O2 Flow FiO2 Ox Delivery Rate 05/29 1056 98 Room Air 05/29 799 94 Room Air 05/29 799 99.0 74 22 112/70 94 Trach Mask 28% 05/29 0546 98 Trach Mask 28% 05/29 0000 96 Trach Mask 28% 05/29 0000 98.5 96 20 130/80 96 Trach Mask 28% 05/28 1630 96 Trach Mask 28% 05/28 1600 96 Trach Mask 28% 05/28 1600 98.8 96 20 120/70 97 Trach Mask 28% 05/28 1200 97 Trach Mask 28% Intake & Output 05/29 1600 05/29 0000 Intake Total 150 240 Output Total 450 Balance -300 240 Intake, IV 0 0 Intake, Oral 150 240 Number 1 1 Bowel Movements Output, Urine 450 Physical Exam Other Physical Findings: He appears comfortable in no acute distress Lungs are clear Heart regular rhythm with no murmur Abdomen is mildly distended, mildly tender on palpation diffusely, with no guarding or rebound, positive bowel sounds Extremities trace edema both lower extremities Results Last 24 Hours of Lab Results: No labs from today Last 24 Hours of Garcia Results: No recent cultures Assessment/Plan Impression: Stable on Flagyl now Day 4 of treatment for C. difficile, with diarrhea improving, temperatures normal and with his last white blood cell count normal. His abdominal distention is felt to be secondary to ascites, with plans for paracentesis later today. He is now 36 days status post laparoscopic Clint plication for a perforated duodenal ulcer. Suggestion: 1. Await paracentesis (submit for the usual studies including culture) 2. Continue Flagyl to complete a 10-14 day course
--- NOTE | 2016-05-29 13:44 | PN- Resident CRCU ---
Subjective HPI/CRCU Issues: Patient seen and examined. He is seen sitting upright in his chair at bedside resting comfortably. He reports that overnight he does not get rest because of his anxiety and is requesting something "stronger than melatonin ". Otherwise he does admit that his abdomen feels quite tense and large which causes him a great deal of discomfort. He also reports that while his bowel movements are still loose, they are slowly reducing in frequency. He denies any headache, fever, chills, chest pain, shortness of breath, nausea, vomiting. No overnight events reported. Objective Vital Signs & I&O Last 8 Hrs of Vitals and I&O: Vitals: - Temperature: 99.0 - Heart Rate: 74 - Respiratory Rate: 182 - Systolic Blood pressure: 112 - Diastolic Blood pressure: 70 - Oxygen Saturation: 94-98% Exam General Appearance: well developed/nourished, no apparent distress, alert, awake , comfortable, obese Other Physical Findings: General - well developed, well nourished obese male in no acute distress HEENT - NCAT, PERRL, EOMI, anicterica sclera, tracheostomy in place CVS - S1, S2 w/o m/g/r Resp - CTA bilaterally GI - soft, obese, distended, nontender, bowel sounds present Neuro - awake and alert, CN II - XII grossly intact Current Medications: Current Medications Sig/Roberto Start time Last Medication Dose Route Stop Time Status Admin Albuterol Sulfate 3 ML BID 05/23 1000 AC 05/29 INH 1054 Fentanyl Citrate 25 MCG Q2 PRN 05/17 1200 AC 05/19 IV 2329 Guaifenesin 10 ML Q6P PRN 05/28 2230 AC 05/28 PO 2240 Heparin Sodium 5,000 UNIT Q8 05/23 1400 AC 05/29 (Porcine) SC 0546 Insulin Aspart 0 AC 05/29 0700 AC 05/29 SC 1200 Insulin Aspart 0 AC & AT BEDTIME 05/28 1700 DC 05/28 SC 1703 Insulin Aspart 0 Q6 05/22 2359 DC 05/28 SC 1151 Lactobacillus 1 CAP DAILY 05/25 1909 AC 05/29 Acidophilus PO 0831 Lorazepam 1 MG ONE ONE 05/28 2300 DC 05/28 PO 05/28 2301 2304 Melatonin 5 MG AT BEDTIME 05/23 2200 AC 05/28 PO 2232 Metronidazole 500 MG Q8 05/26 1400 AC 05/29 PO 0546 Omeprazole 40 MG BID 05/23 1011 AC 05/29 PO 0831 Ondansetron HCl 4 MG Q8P PRN 04/22 0600 AC IV Ramelteon 8 MG QPM PRN 05/29 2200 AC PO Total Parenteral 1 UNIT 1900 05/27 1900 DC 05/27 Nutrition IV 05/28 1859 1949 Impression/Plan Impression/Problem List Impression: Patient was supposed to be discharged to [facility] yesterday however due to insurance reasons this did not happen as his claim was declined. A bed search will be conducted by case management to find a short term rehabilitation center that will accept patients with tracheostomies. IR was contacted today to perform a diagnostic/therapeutic paracentesis prior to his discharge. He remains on metronidazole for his C. diff colitis and reports his diarrhea is slowly improving. His lactulose is still held and must be resumed after flagyl course and completed. Problem list: -Clostridium difficile colitis, on metronidazole -Duodenal ulcer perforation status post surgical repair, now stable -Sepsis, now resolved -Delirium, now resolved -History of alcohol abuse -Cirrhosis, s/p diagnostic/therapeutic paracentesis Gastrointestinal: Patient admitted for perforated duodenal ulcer complicated with peritonitis. Currently status post status post surgical repair. -Omeprazole 40mg PO BID -Lactulose held for diarrhea -Surgery consult following -GI consult following Infectious disease: Patient had intermittent spikes in temperature for which meropenem was prescribed for a total of 23 days in 3 different intervals. Meropenem was discontinued on 05/20/16 as patient had improved leukocytosis and remained afebrile for some time now any obvious sign of infection. Patient was identified to have Clostridium difficile colitis on 05/25/16 for which intravenous Flagyl was started. -Metronidazole 500 mg IV every 8 hours -Infectious disease consult following Respiratory-tracheostomy in place with adequate oxygen saturation Cardiovascular - history of HTN, HLD, no active problems, continue telemetry Hematology- stable hemoglobin/hemocrit, daily CBC Diet- Consistent carbohydrate 3 DVT prophylaxis-subcutaneous heparin CODE STATUS-full code Problem List: 1. Perforation bowel 2. Peritonitis Pain Ratin Tomorrow's Labs & Rationales: None Plan DVT/Prophylaxis: mechanical Code Status: Full Code
--- NOTE | 2016-05-29 14:35 | ULTRASOUND REPORT ---
EXAM: Limited abdominal ultrasound HISTORY: This is a 51 old male with a distended abdomen and suspicion for ascites. The patient was referred for ultrasound guided paracentesis. FINDINGS: Ultrasound imaging of the abdomen revealed trace amount of ascites. No safe window to tap could be identified. Paracentesis was therefore not performed. CONCLUSION: Trace ascites identified. No paracentesis performed.
[2016-05-29 16:04] VITALS: BP 110/60
[2016-05-29 22:00] VITALS: BP 110/60
[2016-05-30 08:00] VITALS: BP 122/68
--- NOTE | 2016-05-30 09:09 | PN- Pulmonary ---
Subjective HPI/Critical Care Issues: There were no overnight events. The patient remains awake and alert. He continues to cough and has intermittent secretions. The tracheostomy remains in place without significant skin irritation. There was not ascites to tap on ultrasound. Objective Current Medications: Current Medications Sig/Roberto Start time Last Medication Dose Route Stop Time Status Admin Albuterol Sulfate 3 ML BID 05/23 1000 AC 05/29 INH 2051 Fentanyl Citrate 25 MCG Q2 PRN 05/17 1200 AC 05/19 IV 2329 Guaifenesin 10 ML Q6P PRN 05/28 2230 AC 05/28 PO 2240 Heparin Sodium 5,000 UNIT .STK-MED ONE 05/29 1442 DC (Porcine) IV 05/29 1443 Heparin Sodium 5,000 UNIT Q8 05/23 1400 AC 05/30 (Porcine) SC 0534 Insulin Aspart 0 AC 05/29 0700 AC 05/29 SC 1200 Lactobacillus 1 CAP DAILY 05/25 1909 AC 05/30 Acidophilus PO 0847 Lorazepam 1 MG ONE ONE 05/29 2145 DC 05/29 PO 05/29 2146 2158 Melatonin 5 MG AT BEDTIME 05/23 2200 AC 05/29 PO 2140 Metronidazole 500 MG Q8 05/26 1400 AC 05/30 PO 0527 Omeprazole 40 MG BID 05/23 1011 AC 05/30 PO 0847 Ondansetron HCl 4 MG Q8P PRN 04/22 0600 AC IV Ramelteon 8 MG QPM PRN 05/29 2200 AC PO Vital Signs & I&O Last 24 Hrs of Vitals and I&O: Vital Signs Date Time Temp Pulse Resp B/P Pulse O2 O2 Flow FiO2 Ox Delivery Rate 05/30 799 98.3 89 20 122/68 94 Room Air 05/30 0208 96 Room Air 05/30 0000 Room Air 05/29 2200 99.2 77 17 110/60 98 Room Air 05/29 205 95 Room Air Room Air 05/29 1620 96 Room Air 05/29 1604 99.1 90 18 110/60 96 Room Air 05/29 1236 Room Air 05/29 1056 98 Room Air Intake & Output 05/30 1600 05/30 0800 05/30 0000 Intake Total 660 450 Output Total 950 345 Balance -290 105 Intake, Oral 660 450 Number 1 Bowel Movements Output, Urine 950 345 Exam General Appearance: awake, comfortable Head: atraumatic Neck: supple, trach in place, no rash Respiratory: no respiratory distress, clear lung nathan, lungs expand symmetrically, trachea midline Cardiovascular: regular rate/rhythm, tachycardia, S1 and S2 heard Abdomen: distended, BS + Extremities: warm and dry Skin: trace peripheral edema Results Last 24 Hrs of Lab Results: Laboratory Tests 05/29/16 1232: Fluid WBC Cancelled, Fld Total RBCs Counted Cancelled 05/29/16 1232: Fluid Total Protein Cancelled, Fluid Albumin Cancelled Impression/Plan Impression/Plan Impression/Plan: 1. S/p Clint patch for perforated duodenal ulcer with peritonitis and fistula - improved. 2. Respiratory failure s/p tracheostomy placement. Improved. 3. Anemia without evidence of bleeding, slight decrease in H&H. 4. Peripheral edema and ascites - the patient may require periodic abdominal paracentesis. 5. Improve nutrition, off TPN. 6. 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 Recommendations: * Abdominal paracentesis ordered for today. * Complete course of Flagyl. * Continue oral feeds. * Continue DVT and GI prophylaxis. * PT and OT to continue. * SQ heparin for DVT prophylaxis. * Continue all supportive care. * Await transfer to [facility].
[2016-05-30 10:06] LABS: ABSOLUTE BASOPHIL COUNT 0 /CUMM (0.0-0.2); ABSOLUTE EOSINOPHIL COUNT 0.1 /CUMM (0.0-0.7); ABSOLUTE GRANULOCYTE CT 6.5 /CUMM (1.4-6.5); ABSOLUTE MONOCYTE COUNT 0.6 /CUMM (0.10-0.60); BASOPHIL % 0.2 % (0.0-2.0); EOSINOPHIL % 1.2 % (0-5); GRANULOCYTE % 78.7 % (42.2-75.2); HEMATOCRIT 26.4 % (42-52); MEAN CORPUSCULAR HGB 30.9 PG (27.0-31.0); MEAN CORPUSCULAR HGB CONC 33.6 G/DL (33.0-37.0); MEAN CORPUSCULAR VOLUME 91.9 FL (80.0-94.0); MEAN PLATELET VOLUME 9.4 FL (7.4-10.4); PLATELET COUNT 196 /CUMM (130-400); RBC DISTRIBUTION WIDTH 15.4 % (11.5-14.5); RED BLOOD CELL CT 2.87 /CUMM (4.70-6.10); WHITE BLOOD CELL COUNT 8.3 /CUMM (4.8-10.8)
--- NOTE | 2016-05-30 11:08 | PN- Infect Dx ---
Subjective Subjective: Afebrile without complaints. His stools are now formed. Objective Last 24 Hrs of Vital Signs/I&O Vital Signs Date Time Temp Pulse Resp B/P Pulse O2 O2 Flow FiO2 Ox Delivery Rate 05/30 0940 94 Room Air Room Air 05/30 0800 98.3 89 20 122/68 94 Room Air 05/30 0208 96 Room Air 05/30 0000 Room Air 05/29 2200 99.2 77 17 110/60 98 Room Air 05/29 2054 95 Room Air Room Air 05/29 1620 96 Room Air 05/29 1604 99.1 90 18 110/60 96 Room Air 05/29 1236 Room Air Intake & Output 05/30 1600 05/30 0800 05/30 0000 Intake Total 660 450 Output Total 950 345 Balance -290 105 Intake, Oral 660 450 Number 1 Bowel Movements Output, Urine 950 345 Physical Exam Other Physical Findings: He appears comfortable in no acute distress Lungs are clear Heart regular rhythm with no murmur Abdomen is distended, minimally tender to palpation, with positive bowel sounds Extremities trace edema both lower extremities Results Last 24 Hours of Lab Results: Laboratory Tests 05/30 05/29 05/29 0910 1232 1232 Chemistry Sodium (137 - 145 mmol/L) 132 L Potassium (3.5 - 5.1 mmol/L) 4.6 Chloride (98 - 107 mmol/L) 91 L Carbon Dioxide (22 - 30 mmol/L) 28 Anion Gap (5 - 16) 13 BUN (9 - 20 mg/dL) 13 Creatinine (0.7 - 1.2 mg/dL) 0.8 Estimated GFR (>60 ml/min) > 60 Glucose (65 - 99 mg/dL) 145 H Calcium (8.4 - 10.2 mg/dL) 8.6 Phosphorus (2.5 - 4.5 mg/dL) 5.2 H Magnesium (1.6 - 2.3 mg/dL) 2.0 Total Bilirubin (0.2 - 1.3 mg/dL) 1.5 H AST (17 - 59 U/L) 61 H ALT (21 - 72 U/L) 45 Albumin (3.5 - 5.0 g/dL) 2.9 L Hematology CBC w Diff NO MAN DIFF REQ WBC (4.8 - 10.8 /CUMM) 8.3 RBC (4.70 - 6.10 /CUMM) 2.87 L Hgb (14.0 - 18.0 G/DL) 8.9 L Hct (42 - 52 %) 26.4 L MCV (80.0 - 94.0 FL) 91.9 MCH (27.0 - 31.0 PG) 30.9 RDW (11.5 - 14.5 %) 15.4 H Plt Count (130 - 400 /CUMM) 196 MPV (7.4 - 10.4 FL) 9.4 Gran % (42.2 - 75.2 %) 78.7 H Lymphocytes % (20.5 - 51.1 %) 12.5 L Monocytes % (1.7 - 9.3 %) 7.4 Eosinophils % (0 - 5 %) 1.2 Basophils % (0.0 - 2.0 %) 0.2 Absolute Granulocytes (1.4 - 6.5 /CUMM) 6.5 Absolute Lymphocytes (1.2 - 3.4 /CUMM) 1.0 L Absolute Monocytes (0.10 - 0.60 /CUMM) 0.6 Absolute Eosinophils (0.0 - 0.7 /CUMM) 0.1 Absolute Basophils (0.0 - 0.2 /CUMM) 0 PUBS MCHC (33.0 - 37.0 G/DL) 33.6 Other Body Source Fluid WBC Cancelled Fld Total RBCs Counted Cancelled Fluid Total Protein Cancelled Fluid Albumin Cancelled Last 24 Hours of Garcia Results: No recent cultures Recent Imaging Studies: Abdominal ultrasound May 29 trace ascites Assessment/Plan Impression: Doing well on Flagyl now Day 5 of treatment for C. difficile, with diarrhea resolved and with temperatures and white blood cell count normal. His ultrasound showed only trace ascites; therefore paracentesis was not performed. He is now 37 days status post laparoscopic Clint plication for a perforated duodenal ulcer. Suggestion: 1. Continue Flagyl to complete a 10-14 day course
--- NOTE | 2016-05-30 13:58 | PN- Resident CRCU ---
Subjective HPI/CRCU Issues: Patient seen and examined. He is seen sitting upright in his chair at bedside resting comfortably. He appears to be in no acute distress. He reports that he slept well last night and that his diarrhea has somewhat improved. He also admits that his ankles look less swollen today. Otherwise he has no complaints. Additionally he denies any headache, fever, chills, chest pain, palpitations, shortness of breath, nausea, vomiting, diarrhea. No overnight events reported. Objective Vital Signs & I&O Last 8 Hrs of Vitals and I&O: Intake & Output 05/30 1600 Intake Total 360 Output Total Balance 360 Intake, Oral 360 Number 1 Bowel Movements Vitals: - Temperature: 98.3 - Heart Rate: 89 - Respiratory Rate: 20 - Systolic Blood pressure: 122 - Diastolic Blood pressure: 68 - Oxygen Saturation: 94-96% Exam General Appearance: well developed/nourished, no apparent distress, alert, awake , comfortable, obese Other Physical Findings: General -well-developed, well-nourished obese male in no acute distress HEENT - NCAT, PERRL, EOMI, anicteric sclera, tracheostomy in place Cardio - S1, S2 w/o murmurs/gallops/rubs Resp - CTA bilaterally w/o wheezing/rhochi/crackles GI -soft, obese, nontender, distended, bowel sounds present Neuro - Awake and alert, CN II - XII grossly intact Extremities-distal pulses intact in bilateral lower extremities, no edema Current Medications: Current Medications Sig/Roberto Start time Last Medication Dose Route Stop Time Status Admin Albuterol Sulfate 3 ML BID 05/23 1000 AC 05/30 INH 0939 Fentanyl Citrate 25 MCG Q2 PRN 05/17 1200 AC 05/19 IV 2329 Guaifenesin 10 ML Q6P PRN 05/28 2230 AC 05/28 PO 2240 Heparin Sodium 5,000 UNIT .STK-MED ONE 05/29 1442 DC (Porcine) IV 05/29 1443 Heparin Sodium 5,000 UNIT Q8 05/23 1400 AC 05/30 (Porcine) SC 0534 Insulin Aspart 0 AC 05/29 0700 AC 05/29 SC 1200 Lactobacillus 1 CAP DAILY 05/25 1909 AC 05/30 Acidophilus PO 0847 Lorazepam 1 MG ONE ONE 05/29 2144 DC 05/29 PO 01/05 2146 2158 Melatonin 5 MG AT BEDTIME 05/23 2200 AC 05/29 PO 2140 Metronidazole 500 MG Q8 05/26 1400 AC 05/30 PO 0527 Omeprazole 40 MG BID 05/23 1011 AC 05/30 PO 0847 Ondansetron HCl 4 MG Q8P PRN 04/22 0600 AC IV Ramelteon 8 MG QPM PRN 05/29 2200 AC PO Impression/Plan Impression/Problem List Impression: Interventional radiology was to perform a paracentesis yesterday for patient's complaints of a distended abdomen and generalized discomfort secondary to this. A preliminary ultrasound was performed on the patient's abdomen which is determined that he did not have a sufficient amount of fluid to be drained, so this procedure was deferred. He is to be discharged to [facility] on Thursday pending insurance approval. He is to be continued on metronidazole for his C. difficile colitis in the meantime with all other supportive treatments and place. Problem list: -Clostridium difficile colitis, on metronidazole -Duodenal ulcer perforation status post surgical repair, now stable -Sepsis, now resolved -Delirium, now resolved -History of alcohol abuse -Cirrhosis Gastrointestinal: Patient admitted for perforated duodenal ulcer complicated with peritonitis. Currently status post status post surgical repair. -Omeprazole 40mg PO BID -Lactulose held for diarrhea -Surgery consult following -GI consult following Infectious disease: Patient had intermittent spikes in temperature for which meropenem was prescribed for a total of 23 days in 3 different intervals. Meropenem was discontinued on 05/20/16 as patient had improved leukocytosis and remained afebrile for some time now any obvious sign of infection. Patient was identified to have Clostridium difficile colitis on 05/25/16 for which intravenous Flagyl was started. -Metronidazole 500 mg IV every 8 hours for a 10-14 day course -Infectious disease consult following Respiratory-tracheostomy in place with adequate oxygen saturation Cardiovascular - history of HTN, HLD, no active problems, continue telemetry Hematology- stable hemoglobin/hemocrit, daily CBC Diet- Consistent carbohydrate 3 DVT prophylaxis-subcutaneous heparin CODE STATUS-full code Problem List: 1. Peritonitis 2. Perforation bowel Pain Ratin Tomorrow's Labs & Rationales: None Plan DVT/Prophylaxis: mechanical Code Status: Full Code
[2016-05-30 16:00] VITALS: BP 116/62
[2016-05-30 22:40] VITALS: BP 142/86
[2016-05-31 08:00] VITALS: BP 120/70
--- NOTE | 2016-05-31 08:25 | PN- Resident CRCU ---
Subjective HPI/CRCU Issues: Patient seen and examined. He is seen resting on bed comfortably. He reports that overnight he didnt sleep well. He is started on ambien for sleep. He also reports phlegm production for which he is provided with mucomist inhalers. He denies any diarrhea. He denies any headache, fever, chills, chest pain, shortness of breath, nausea, vomiting. No overnight events reported. Objective Vital Signs & I&O Last 8 Hrs of Vitals and I&O: Intake & Output 05/31 1600 Intake Total 500 Output Total 450 Balance 50 Intake, IV 0 Intake, Oral 500 Number 1 Bowel Movements Output, Urine 450 Stable Exam General Appearance: no apparent distress, alert, awake, comfortable, obese Head: atraumatic, normal appearance Ears, Nose, Throat: hearing grossly normal, Tracheostomy tube in place. Respiratory: chest non-tender, no respiratory distress, transmitted sounds, minimal rhonchi Cardiovascular: regular rate/rhythm, normal peripheral pulses Gastrointestinal: normal bowel sounds, soft, non-tender Extremities: normal inspection, normal capillary refill, normal range of motion Cranial Nerves: normal hearing, normal speech, PERRL Skin: intact Nutrition Nutrition: P.O. diet Current Medications: Current Medications Sig/Roberto Start time Last Medication Dose Route Stop Time Status Admin Acetylcysteine 2 ML BID 05/31 2200 AC INH 06/02 2300 Albuterol Sulfate 3 ML BID 05/23 1000 AC 05/31 INH 0913 Fentanyl Citrate 25 MCG Q2 PRN 05/17 1200 AC 05/19 IV 2329 Guaifenesin 10 ML Q6P PRN 05/28 2230 AC 05/28 PO 2240 Heparin Sodium 5,000 UNIT Q8 05/23 1400 AC 05/31 (Porcine) SC 1357 Insulin Aspart 0 AC 05/29 0700 DC 05/29 SC 1200 Lactobacillus 1 CAP DAILY 05/25 1909 AC 05/31 Acidophilus PO 0929 Lorazepam 1 MG ONE ONE 05/30 194 DC 05/30 PO 05/30 194 2223 Melatonin 5 MG AT BEDTIME 05/23 2200 DC 05/30 PO 2223 Metronidazole 500 MG Q8 05/26 1400 AC 05/31 PO 1357 Omeprazole 40 MG BID 05/23 1011 AC 05/31 PO 0929 Ondansetron HCl 4 MG Q8P PRN 04/22 0600 AC IV Ramelteon 8 MG .STK-MED ONE 05/30 2224 DC PO 05/30 2225 Ramelteon 8 MG QPM PRN 05/29 2199 AC 05/30 PO 2226 Zolpidem Tartrate 5 MG AT BEDTIME 05/31 2199 AC PO Impression/Plan Impression/Problem List Impression: Patient continues to have slow falls and his hemoglobin concentration on blood count monitoring. Ativan drip will continue to be weaned in addition to propofol being discontinued later today. PICC line and Ann catheter were removed yesterday. Down to the IR suite today for a fluoroscopic procedure to manually advanced the nasal jejunal tube to the appropriate area, which was reportedly successful with no complications. The tube was apparently embedded in the mucosal wall which may have been the source of the slow upper GI bleed. Nutrition services was contacted regarding starting enteric tube feeds and preliminary recommendations were made over the phone with a formal consult being placed in the morning. TPN is slowly tapered off white to feedings started today Gastrointestinal: Patient admitted for perforated duodenal ulcer complicated with peritonitis. Currently S/P surgical repair. * CONNIE tubes #[address] * Consistent carbohydrate diet with Puree/thin * TPN nutrition to be continued , soon to be tapered, lipids discontinued * Omeprazole 40mg PO BID today * Lactulose 20 g NG a day * Surgery consult following * GI consult following * C.Diff positive started on Metrogyl PO 500mg Q8 - day 6 Infectious disease: Patient had intermittent spikes in temperature for which meropenem was prescribed for a total of 23 days in 3 different intervals. Meropenem was discontinued on 05/20/16 as patient had improved leukocytosis and remained afebrile for some time now any obvious sign of infection. * stool C.diff was positive started on metrogyl * white count normal today Respiratory-tracheostomy in place with adequate oxygen saturation Cardiovascular - history of HTN, HLD, no active problems, continue telemetry Hematology- stable hemoglobin/hemocrit, daily CBC Diet- Consistent carbohydrate 3 started (puree/thin) Started on ambien 5mg for sleep Problem List: 1. Perforation bowel 2. Peritonitis Pain Ratin Tomorrow's Labs & Rationales: ICU bundle CBC Plan DVT/Prophylaxis: mechanical Code Status: Full Code
--- NOTE | 2016-05-31 08:39 | NUR ---
@0800-PT ALERT AND ORIENTED, SITTING COMF IN [facility]TONIO CHAIR. FOLLOWS COMMANDS. CONT ON TM 28%. #9 [place] TRACH NOTED, INNER CANNULA CHANGED THIS AM AT 0530 BY NURSES DIRECTOR. WILL PROVIDE TRACH CARE AFTER PT FINISHES BREAKFAST. PASSY MEUR VALVE IN PLACE. NEBS PER RT BID. PROD COUGH NOTED-THIN WHITE SECRETIONS. C3 DIET PROVIDED. VOIDS IN URINAL, OOB TO TOILET FOR BM. NO LABS ORD THIS AM. PENDING DISCHARGE TO [facility], AWAITING TO MEET DC CRITERIA. CONT TO MONITOR CLOSELY. CALL [facility] WITHIN REACH.
--- NOTE | 2016-05-31 10:21 | PN- Pulmonary ---
Subjective HPI/Critical Care Issues: pt seen and examined accepted to nursing facility awaiting transfer if no events on Thursday trach in place no new events at respiratory baseline at rest no n/v/d/c Objective Current Medications: Current Medications Sig/Roberto Start time Last Medication Dose Route Stop Time Status Admin Albuterol Sulfate 3 ML BID 05/23 1000 AC 05/31 INH 0913 Fentanyl Citrate 25 MCG Q2 PRN 05/17 1200 AC 05/19 IV 2329 Guaifenesin 10 ML Q6P PRN 05/28 2230 AC 05/28 PO 2240 Heparin Sodium 5,000 UNIT Q8 05/23 1400 AC 05/31 (Porcine) SC 0551 Insulin Aspart 0 AC 05/29 0700 DC 05/29 SC 1200 Lactobacillus 1 CAP DAILY 05/25 1909 AC 05/31 Acidophilus PO 0929 Lorazepam 1 MG ONE ONE 05/30 194 DC 05/30 PO 05/30 194 2223 Melatonin 5 MG AT BEDTIME 05/23 2200 AC 05/30 PO 2223 Metronidazole 500 MG Q8 05/26 1400 AC 05/31 PO 0551 Omeprazole 40 MG BID 05/23 1011 AC 05/31 PO 0929 Ondansetron HCl 4 MG Q8P PRN 04/22 0600 AC IV Ramelteon 8 MG .STK-MED ONE 05/30 222 DC PO 05/30 222 Ramelteon 8 MG QPM PRN 05/29 2200 AC 05/30 PO 2227 Vital Signs & I&O Last 24 Hrs of Vitals and I&O: Vital Signs Date Time Temp Pulse Resp B/P Pulse O2 O2 Flow FiO2 Ox Delivery Rate 05/31 09 96 Trach Mask 28% 05/31 799 98.6 90 20 120/70 95 Trach Mask 28% 05/31 799 95 Trach Mask 28% 05/30 2241 95 Trach Mask 28% 05/30 2239 99.8 96 20 142/86 95 Trach Mask 28% 05/30 1849 97 Trach Mask 28% 05/30 1834 Trach Mask 28% 05/30 1600 Room Air 05/30 1600 99.7 96 20 116/62 95 Intake & Output 05/31 1600 05/31 0800 05/31 0000 Intake Total 460 600 Output Total 600 Balance -140 600 Intake, Oral 460 600 Number 1 Bowel Movements Output, Urine 600 Exam Other Physical Findings: gen awake alert heent trach cvs s1, s2 lungs transmitted, rare rhonchi abd soft bs+ ext trace edema Impression/Plan Impression/Plan Impression/Plan: Impression 50 year old man * s/p repair of perforated viscus, stabilized * resolved hypoxemic respiratory failure * Resolved septic shock secondary to ascitic - Enterobacter/alpha strep * anemia stable * severe malnutrition * C. Diff Plan Respiratory * trach collar/28% fio2, keep spo2 >92% ID * Ascitic Enterobacter/alpha strep * on flagyl for c.diff CVS * stable hemodynamics Heme * monitor cbc, coags, no active bleeding Metabolic * creatinine, electrolytes monitoring Alimentary * nutrition as ordered Neuro * no active issues DVT prophylaxis at all times D/C planning to nursing facility
--- NOTE | 2016-05-31 13:14 | NUR ---
Physical therapy: Patient approached for PT this afternoon. Patient states "I didn't know that you were coming so I already took a long walk this morning. I am kind of sore from doing the stairs yesterday". Patient politely refusing PT at this time. Will continue to follow up with patient as appopriate. Thank you.
[2016-05-31 16:00] VITALS: BP 120/80
[2016-06-01] VITALS: BP 142/80
[2016-06-01 06:53] LABS: ABSOLUTE BASOPHIL COUNT 0 /CUMM (0.0-0.2); ABSOLUTE EOSINOPHIL COUNT 0.1 /CUMM (0.0-0.7); ABSOLUTE GRANULOCYTE CT 4.9 /CUMM (1.4-6.5); ABSOLUTE MONOCYTE COUNT 0.6 /CUMM (0.10-0.60); BASOPHIL % 0.3 % (0.0-2.0); EOSINOPHIL % 1.8 % (0-5); GRANULOCYTE % 74.4 % (42.2-75.2); HEMATOCRIT 23.8 % (42-52); MEAN CORPUSCULAR HGB 30.6 PG (27.0-31.0); MEAN CORPUSCULAR HGB CONC 33.5 G/DL (33.0-37.0); MEAN CORPUSCULAR VOLUME 91.6 FL (80.0-94.0); MEAN PLATELET VOLUME 9.3 FL (7.4-10.4); PLATELET COUNT 148 /CUMM (130-400); RBC DISTRIBUTION WIDTH 15.7 % (11.5-14.5); WHITE BLOOD CELL COUNT 6.6 /CUMM (4.8-10.8)
[2016-06-01 08:00] VITALS: BP 120/70
--- NOTE | 2016-06-01 09:18 | PN- Pulmonary ---
Subjective HPI/Critical Care Issues: Patient seen and examined. No chest pain, at respiratory baseline. No nausea, vomiting, diarrhea or constipation. Afebrile and hemodynamically stable. Head some excess mucus formation and started on Mucomyst. Objective Current Medications: Current Medications Sig/Roberto Start time Last Medication Dose Route Stop Time Status Admin Acetylcysteine 2 ML BID 05/31 2200 AC 05/31 INH 06/02 2300 1822 Albuterol Sulfate 3 ML BID 05/23 1000 AC 05/31 INH 1821 Fentanyl Citrate 25 MCG Q2 PRN 05/17 1200 AC 05/19 IV 2329 Guaifenesin 10 ML Q6P PRN 05/28 2230 AC 05/28 PO 2240 Heparin Sodium 5,000 UNIT Q8 05/23 1400 AC 06/01 (Porcine) SC 0524 Lactobacillus 1 CAP DAILY 05/25 1909 AC 06/01 Acidophilus PO 0838 Melatonin 5 MG AT BEDTIME 05/23 2200 DC 05/30 PO 2223 Metronidazole 500 MG Q8 05/26 1400 AC 06/01 PO 0525 Omeprazole 40 MG BID 05/23 1011 AC 06/01 PO 0838 Ondansetron HCl 4 MG Q8P PRN 04/22 0600 AC IV Ramelteon 8 MG QPM PRN 05/29 2200 AC 05/30 PO 2227 Zolpidem Tartrate 5 MG AT BEDTIME 05/31 2200 AC 05/31 PO 2305 Vital Signs & I&O Last 24 Hrs of Vitals and I&O: Vital Signs Date Time Temp Pulse Resp B/P Pulse O2 O2 Flow FiO2 Ox Delivery Rate 06/01 799 99.2 90 20 120/70 95 Trach Mask 28% 06/01 799 95 Trach Mask 28% 06/01 0222 98 Trach Mask 28% 06/01 0000 98 Trach Mask 28% 06/01 0000 99.5 92 20 142/80 98 Room Air 05/31 1831 96 Trach Mask 28% 05/31 1600 95 Trach Mask 28% 05/31 1600 99.1 88 22 120/80 95 Trach Mask 28% 05/31 0923 96 Trach Mask 28% Intake & Output 06/01 1600 06/01 0800 06/01 0000 Intake Total 400 600 Output Total 600 400 Balance -200 200 Intake, Oral 400 600 Number 1 Bowel Movements Output, Urine 600 400 Exam Other Physical Findings: gen awake alert heent trach cvs s1, s2 lungs transmitted, rare rhonchi abd soft bs+ ext trace edema Results Last 24 Hrs of Lab Results: Laboratory Tests 06/01/16 0525: Anion Gap 11, Estimated GFR > 60, BUN/Creatinine Ratio 15.0, CBC w Diff NO MAN DIFF REQ, RBC 2.60 L, MCV 91.6, MCH 30.6, RDW 15.7 H, MPV 9.3, Gran % 74.4, Lymphocytes % 14.5 L, Monocytes % 9.0, Eosinophils % 1.8, Basophils % 0.3, Absolute Granulocytes 4.9, Absolute Lymphocytes 1.0 L, Absolute Monocytes 0.6, Absolute Eosinophils 0.1, Absolute Basophils 0, PUBS MCHC 33.5 Impression/Plan Impression/Plan Impression/Plan: Impression 50 year old man * s/p repair of perforated viscus, stabilized * resolved hypoxemic respiratory failure * Resolved septic shock secondary to ascitic - Enterobacter/alpha strep * anemia stable * severe malnutrition * C. Diff Plan Respiratory * trach collar/28% fio2, keep spo2 >92% ID * Ascitic Enterobacter/alpha strep * on flagyl for c.diff CVS * stable hemodynamics Heme * monitor cbc, coags, no active bleeding Metabolic * creatinine, electrolytes monitoring Alimentary * nutrition as ordered Neuro * no active issues DVT prophylaxis at all times D/C planning to nursing facility
--- NOTE | 2016-06-01 09:21 | PN- Infect Dx ---
Subjective Subjective: Afebrile without complaints. He has had no further diarrhea. Objective Last 24 Hrs of Vital Signs/I&O Vital Signs Date Time Temp Pulse Resp B/P Pulse O2 O2 Flow FiO2 Ox Delivery Rate 06/01 799 99.2 90 20 120/70 95 Trach Mask 28% 06/01 799 95 Trach Mask 28% 06/01 0222 98 Trach Mask 28% 06/01 0000 98 Trach Mask 28% 06/01 0000 99.5 92 20 142/80 98 Room Air 05/31 1831 96 Trach Mask 28% 05/31 1600 95 Trach Mask 28% 05/31 1600 99.1 88 22 120/80 95 Trach Mask 28% 05/31 0923 96 Trach Mask 28% Intake & Output 06/01 0000 Intake Total 400 600 Output Total 600 400 Balance -200 200 Intake, Oral 400 600 Number 1 Bowel Movements Output, Urine 600 400 Physical Exam Other Physical Findings: He appears comfortable in no acute distress Lungs are clear Heart regular rhythm with no murmur Abdomen is distended, nontender with positive bowel sounds Extremities trace edema both lower extremities Results Last 24 Hours of Lab Results: Laboratory Tests 06/01 524 Chemistry Sodium (137 - 145 mmol/L) 133 L Potassium (3.5 - 5.1 mmol/L) 4.3 Chloride (98 - 107 mmol/L) 93 L Carbon Dioxide (22 - 30 mmol/L) 29 Anion Gap (5 - 16) 11 BUN (9 - 20 mg/dL) 12 Creatinine (0.7 - 1.2 mg/dL) 0.8 Estimated GFR (>60 ml/min) > 60 BUN/Creatinine Ratio (7 - 25 %) 15.0 Hematology CBC w Diff NO MAN DIFF REQ WBC (4.8 - 10.8 /CUMM) 6.6 RBC (4.70 - 6.10 /CUMM) 2.60 L Hgb (14.0 - 18.0 G/DL) 8.0 L Hct (42 - 52 %) 23.8 L MCV (80.0 - 94.0 FL) 91.6 MCH (27.0 - 31.0 PG) 30.6 RDW (11.5 - 14.5 %) 15.7 H Plt Count (130 - 400 /CUMM) 148 MPV (7.4 - 10.4 FL) 9.3 Gran % (42.2 - 75.2 %) 74.4 Lymphocytes % (20.5 - 51.1 %) 14.5 L Monocytes % (1.7 - 9.3 %) 9.0 Eosinophils % (0 - 5 %) 1.8 Basophils % (0.0 - 2.0 %) 0.3 Absolute Granulocytes (1.4 - 6.5 /CUMM) 4.9 Absolute Lymphocytes (1.2 - 3.4 /CUMM) 1.0 L Absolute Monocytes (0.10 - 0.60 /CUMM) 0.6 Absolute Eosinophils (0.0 - 0.7 /CUMM) 0.1 Absolute Basophils (0.0 - 0.2 /CUMM) 0 PUBS MCHC (33.0 - 37.0 G/DL) 33.5 Last 24 Hours of Garcia Results: No recent cultures Assessment/Plan Impression: Doing well on Flagyl now Day 7 of treatment for C. difficile, with diarrhea resolved and with temperatures and white blood cell count remaining normal now 39 days status post laparoscopic Clint plication for a perforated duodenal ulcer. Suggestion: 1. Continue Flagyl for 3 more days
[2016-06-01] MEDS ORDERED: AMBIEN5 M1 PO (10:28)
--- NOTE | 2016-06-01 12:43 | NUR ---
@1200-PT AMBULATING IN [facility]. LAMAR WELL. SETUP AT SINK FOR HYGIENE. HAIR WASHED WITH SHAMPOO CAP. INNER CANNULA CHANGED AND TRACH CARE PROVIDED AT 0800. VSS. DSG INTACT TO L ABD. CONT ON TM 28%-O2SAT 95%, PROD COUGH. CONT NEBS PER RT. PASSEY MEUR VALVE IN PLACE. CONT TO MONITOR CLOSELY. CALL ALEXANDRA HARRELL.
--- NOTE | 2016-06-01 15:48 | NUR ---
@1545-PT COMPLAINING OF FEELING MORE BLOATED, ABD DISTENDED/FIRM. +BS. PT HAD 3BMS TODAY, BEING TREATED FOR +CDIFF. REPORTED FINDINGS AND PT COMPLAINT TO HOUSESTAFF. PT HAD ULTRASOUND 05/30/16, NOT ENOUGH FLUID FOR PARACENTESIS. HOUSESTAFF TO FOLLOWUP WITH ATTENGING. CONT TO MONITOR .
[2016-06-01 16:00] VITALS: BP 128/68
--- NOTE | 2016-06-01 18:06 | PN- Resident CRCU ---
Subjective HPI/CRCU Issues: Patient seen and examined. He is seen sitting upright in his chair at bedside resting comfortably. He appears to be in no acute distress. He reports that he diarrhea has almost completely resolved. He does admit that his abdomen is still quite uncomfortable and is much larger than he remembers. Otherwise he denies any headache, fever, chills, chest pain, shortness of breath , nausea, vomiting, diarrhea. No overnight events reported. Objective Vital Signs & I&O Last 8 Hrs of Vitals and I&O: Intake & Output 06/01 1600 Intake Total 650 Output Total 450 Balance 200 Intake, Oral 650 Intake, Other 0 Number 3 Bowel Movements Output, Urine 450 Vitals: - Temperature: 99.1 - 99.2 - Heart Rate: 90 - 96 - Respiratory Rate: 20 -22 - Systolic Blood pressure: 120 - 128 - Diastolic Blood pressure: 68 - 70 - Oxygen Saturation: 95 - 98% Exam General Appearance: well developed/nourished, no apparent distress, alert, awake , obese Other Physical Findings: General -well-developed, well-nourished obese male in no acute distress HEENT - NCAT, PERRL, EOMI, anicteric sclera him a tracheostomy in place Cardio - S1, S2 w/o murmurs/gallops/rubs Resp - CTA bilaterally w/o wheezing/rhochi/crackles GI -soft, obese, distended, nontender, bowel sounds present Neuro - Awake and alert, CN II - XII grossly intact Extremities- 1+ bilateral lowere extremity edema, distal pulses intact Current Medications: Current Medications Sig/Roberto Start time Last Medication Dose Route Stop Time Status Admin Acetylcysteine 2 ML BID 05/31 2200 AC 06/01 INH 06/02 2300 1011 Albuterol Sulfate 3 ML BID 05/23 1000 AC 06/01 INH 1008 Fentanyl Citrate 25 MCG Q2 PRN 05/17 1200 AC 05/19 IV 2329 Guaifenesin 10 ML Q6P PRN 05/28 2230 AC 05/28 PO 2240 Heparin Sodium 5,000 UNIT Q8 05/23 1400 AC 06/01 (Porcine) SC 1352 Lactobacillus 1 CAP DAILY 05/25 1909 AC 06/01 Acidophilus PO 0838 Metronidazole 500 MG Q8 05/26 1400 AC 06/01 PO 1353 Omeprazole 40 MG BID 05/23 1011 AC 06/01 PO 0838 Ondansetron HCl 4 MG Q8P PRN 04/22 0600 AC IV Ramelteon 8 MG QPM PRN 05/29 2200 AC 05/30 PO 2227 Zolpidem Tartrate 5 MG AT BEDTIME 06/01 2200 CAN PO Zolpidem Tartrate 5 MG AT BEDTIME 05/31 2200 AC 05/31 PO 2305 Impression/Plan Impression/Problem List Impression: Patient reports persistent abdominal discomfort, but does admit that his diarrhea has almost resolved. His abdomen appears bloated. He is to continue on flagyl for three more days. He was started on Ambien last night for sleep and reports that it very much helped with his sleep. He is still set to be discharged to [facility]. Problem list: -Clostridium difficile colitis, on metronidazole -Duodenal ulcer perforation status post surgical repair, now stable -Sepsis, now resolved -Delirium, now resolved -History of alcohol abuse -Cirrhosis Gastrointestinal: Patient admitted for perforated duodenal ulcer complicated with peritonitis. Currently status post status post surgical repair. -Omeprazole 40mg PO BID -Lactulose held for diarrhea -Surgery consult following -GI consult following Infectious disease: Patient had intermittent spikes in temperature for which meropenem was prescribed for a total of 23 days in 3 different intervals. Meropenem was discontinued on 05/20/16 as patient had improved leukocytosis and remained afebrile for some time now any obvious sign of infection. Patient was identified to have Clostridium difficile colitis on 05/25/16 for which intravenous Flagyl was started. -Metronidazole 500 mg IV every 8 hours for 3 more days -Infectious disease consult following Respiratory-tracheostomy in place with adequate oxygen saturation Cardiovascular - history of HTN, HLD, no active problems, continue telemetry Hematology- stable hemoglobin/hemocrit, daily CBC Diet- Consistent carbohydrate 3 DVT prophylaxis-subcutaneous heparin CODE STATUS-full code Problem List: 1. Peritonitis 2. Perforation bowel Pain Ratin Tomorrow's Labs & Rationales: None Plan DVT/Prophylaxis: mechanical Code Status: Full Code
[2016-06-02] VITALS: BP 118/68
--- NOTE | 2016-06-02 08:57 | PN- Resident CRCU ---
Subjective HPI/CRCU Issues: Patient seen and examined. He is seen sitting in his chair at bedside resting comfortably. He appears to be in no acute distress. He reports that his diarrhea has resolved and that his abdomen feels less bloated than in previous days. He also reports improvement of his swelling in his legs. He is eager to be discharged to [facility] today. Otherwise he denies any headache, fever, chills, chest pain, shortness of breath , nausea, vomiting, diarrhea. Patient reportedly fell last night getting into bed. He did not hit his head or sustain any other injuries. He admits it was a mechanical fall because he wasn't wearing his socks. He admits to minor left sided pain but otherwise feels fine. Objective Vital Signs & I&O Last 8 Hrs of Vitals and I&O: Vitals: - Temperature:98.9 - Heart Rate: 88 - Respiratory Rate: 20 - Systolic Blood pressure: 118 - Diastolic Blood pressure: 60 - Oxygen Saturation: 95-99% on 28% FiO2 Exam General Appearance: well developed/nourished, no apparent distress, alert, awake , comfortable, obese Other Physical Findings: General -well-developed, well-nourished obese male in no acute distress HEENT - NCAT, PERRL, EOMI, anicteric sclera, tracheostomy in place Cardio - S1, S2 w/o murmurs/gallops/rubs Resp - CTA bilaterally w/o wheezing/rhochi/crackles GI -soft, obese, nontender, mildly distended, bowel sounds present Neuro - Awake and alert, CN II - XII grossly intact Extremities-1+ bilateral lower extremity edema, distal pulses intact Current Medications: Current Medications Sig/Roberto Start time Last Medication Dose Route Stop Time Status Admin Acetylcysteine 2 ML BID 05/31 2200 AC 06/01 INH 06/02 2300 1832 Albuterol Sulfate 3 ML BID 05/23 1000 AC 06/01 INH 1831 Fentanyl Citrate 25 MCG Q2 PRN 05/17 1200 AC 05/19 IV 2329 Guaifenesin 10 ML Q6P PRN 05/28 2230 AC 05/28 PO 2240 Heparin Sodium 5,000 UNIT Q8 05/23 1400 AC 06/02 (Porcine) SC 0612 Lactobacillus 1 CAP DAILY 05/25 1909 AC 06/01 Acidophilus PO 0838 Metronidazole 500 MG Q8 05/26 1400 AC 06/02 PO 0612 Omeprazole 40 MG BID 05/23 1011 AC 06/01 PO 220 Ondansetron HCl 4 MG Q8P PRN 04/22 0600 AC IV Ramelteon 8 MG QPM PRN 05/29 2200 AC 05/30 PO 2227 Zolpidem Tartrate 5 MG AT BEDTIME 06/01 2200 CAN PO Zolpidem Tartrate 5 MG AT BEDTIME 05/31 2200 AC 06/01 PO 2205 Impression/Plan Impression/Problem List Impression: Patient reports resolution of his diarrhea and improvement of his abdominal bloating/discomfort. He is to he continued on oral metronidazole for 2 more days to complete his antibiotic course. He was started on Ambien for insomnia which patient tolerated well and will be continued on discharge. He is to be discharged to [facility] today. Problem list: -Clostridium difficile colitis, on metronidazole -Duodenal ulcer perforation status post surgical repair, now stable -Sepsis, now resolved -Delirium, now resolved -History of alcohol abuse -Cirrhosis Gastrointestinal: Patient admitted for perforated duodenal ulcer complicated with peritonitis. Currently status post status post surgical repair. -Omeprazole 40mg PO BID -Lactulose held for diarrhea -Surgery consult following -GI consult following Infectious disease: Patient had intermittent spikes in temperature for which meropenem was prescribed for a total of 23 days in 3 different intervals. Meropenem was discontinued on 05/20/16 as patient had improved leukocytosis and remained afebrile for some time now any obvious sign of infection. Patient was identified to have Clostridium difficile colitis on 05/25/16 for which intravenous Flagyl was started. -Metronidazole 500 mg IV every 8 hours for 3 more days -Infectious disease consult following Respiratory-tracheostomy in place with adequate oxygen saturation Cardiovascular - history of HTN, HLD, no active problems, continue telemetry Hematology- stable hemoglobin/hemocrit, daily CBC Diet- Consistent carbohydrate 3 DVT prophylaxis-subcutaneous heparin CODE STATUS-full code Problem List: 1. Bowel perforation Pain Ratin Tomorrow's Labs & Rationales: None Plan DVT/Prophylaxis: mechanical Code Status: Full Code
--- NOTE | 2016-06-02 09:31 | PN- Pulmonary ---
Subjective HPI/Critical Care Issues: pt seen and examined anticipating dc ambulating no n/v/d/c no cp no dyspnea Objective Current Medications: Current Medications Sig/Roberto Start time Last Medication Dose Route Stop Time Status Admin Acetylcysteine 2 ML BID 05/31 2200 AC 06/01 INH 06/02 2300 1832 Albuterol Sulfate 3 ML BID 05/23 1000 AC 06/02 INH 0919 Fentanyl Citrate 25 MCG Q2 PRN 05/17 1200 AC 05/19 IV 2329 Guaifenesin 10 ML Q6P PRN 05/28 2230 AC 05/28 PO 2240 Heparin Sodium 5,000 UNIT Q8 05/23 1400 AC 06/02 (Porcine) SC 0612 Lactobacillus 1 CAP DAILY 05/25 1909 AC 06/01 Acidophilus PO 0838 Metronidazole 500 MG Q8 05/26 1400 DC 06/02 PO 0612 Omeprazole 40 MG BID 05/23 1011 AC 06/01 PO 2204 Ondansetron HCl 4 MG Q8P PRN 04/22 0600 AC IV Ramelteon 8 MG QPM PRN 05/29 2200 AC 05/30 PO 2227 Zolpidem Tartrate 5 MG AT BEDTIME 06/01 2200 CAN PO Zolpidem Tartrate 5 MG AT BEDTIME 05/31 2200 AC 06/01 PO 2205 Vital Signs & I&O Last 24 Hrs of Vitals and I&O: Vital Signs Date Time Temp Pulse Resp B/P Pulse O2 O2 Flow FiO2 Ox Delivery Rate 06/02 922 96 Room Air Room Air 06/02 0354 98 Trach Mask 28% 06/02 0000 95 Trach Mask 28% 06/02 0000 98.9 88 20 118/68 95 Trach Mask 28% 06/01 1835 99 Trach Mask 28% 06/01 1600 95 Trach Mask 28% 06/01 1600 99.1 96 22 128/68 95 Trach Mask 28% 06/01 1013 98 Room Air Intake & Output 06/02 1600 06/02 0800 06/02 0000 Intake Total 600 300 Output Total 750 400 Balance -150 -100 Intake, IV 0 0 Intake, Oral 600 300 Number 1 0 Bowel Movements Output, Urine 750 400 Exam Other Physical Findings: gen awake alert heent trach cvs s1, s2 lungs transmitted, rare rhonchi abd soft bs+ ext trace edema Results Last 24 Hrs of Lab Results: Laboratory Tests 06/01/16 1000: Sodium Cancelled, Potassium Cancelled, Chloride Cancelled, Carbon Dioxide Cancelled, Anion Gap Cancelled, BUN Cancelled, Creatinine Cancelled, Glucose Cancelled, Calcium Cancelled, Phosphorus Cancelled, Magnesium Cancelled, Total Bilirubin Cancelled, AST Cancelled, ALT Cancelled, Albumin Cancelled 06/01/16 0956: CBC w Diff Cancelled, WBC Cancelled, RBC Cancelled, Hgb Cancelled, Hct Cancelled , MCV Cancelled, MCH Cancelled, RDW Cancelled, Plt Count Cancelled, MPV Cancelled, PUBS MCHC Cancelled Impression/Plan Impression/Plan Impression/Plan: Impression 50 year old man * s/p repair of perforated viscus, stabilized * resolved hypoxemic respiratory failure * Resolved septic shock secondary to ascitic - Enterobacter/alpha strep * anemia stable * severe malnutrition * C. Diff Plan Respiratory * trach collar/28% fio2, keep spo2 >92% ID * Ascitic Enterobacter/alpha strep * on flagyl for c.diff x 2 more days CVS * stable hemodynamics Heme * monitor cbc, coags, no active bleeding Metabolic * creatinine, electrolytes monitoring Alimentary * nutrition as ordered Neuro * no active issues DVT prophylaxis at all times D/C planning to nursing facility
[2016-06-02] MEDS ORDERED: ZOLPIDEM TARTRAT5 M1 PO (09:34)
[2016-06-02] MEDS ORDERED: FLAGYL250 M1 PO (09:34)
[2016-06-02 11:29] VITALS: BP 116/70
--- NOTE | 2016-06-02 11:55 | NUR ---
SPEECH THERAPY: PT HAS BEEN CONTINUING TO TOLERATE REGULAR DIET AND THIN LIQUIDS WITHOUT DIFFICULTY PER NURSING STAFF. D/C SKILLED ST AT THIS TIME. PLEASE RE-REFER IF INDICATED.
== END 2016-06-02 14:00 | DRG 3 ==
LOC: ERH 01:22 → CRI 01:53 → ERHI 01:53 → CRI 07:56
PROVIDERS: Internal Medicine; Internal Medicine Infectious Disease; Internal Medicine Interventional Cardiology; Internal Medicine Pulmonary Disease; Ophthalmology; Pediatrics; Student in an Organized Health Care Education/Training Program; ADMIT Student in an Organized Health Care Education/Training Program
PROC: 0DU947Z Supplement Duodenum with Autologous Tissue Substitute, Percutaneous Endoscopic Approach (ICD-10-PCS; principal; 2016-04-22)
PROC: 5A1955Z Respiratory Ventilation, Greater than 96 Consecutive Hours (ICD-10-PCS; 2016-04-22)
PROC: 0BH17EZ Insertion of Endotracheal Airway into Trachea, Via Natural or Artificial Opening (ICD-10-PCS; 2016-04-22)
PROC: 0FB04ZX Excision of Liver, Percutaneous Endoscopic Approach, Diagnostic (ICD-10-PCS; 2016-04-22)
PROC: 0W9G3ZZ Drainage of Peritoneal Cavity, Percutaneous Approach (ICD-10-PCS; 2016-04-22)
PROC: 02HV33Z Insertion of Infusion Device into Superior Vena Cava, Percutaneous Approach (ICD-10-PCS; 2016-04-22)
PROC: 30233N1 Transfusion of Nonautologous Red Blood Cells into Peripheral Vein, Percutaneous Approach (ICD-10-PCS; 2016-04-23)
PROC: 0B110F4 Bypass Trachea to Cutaneous with Tracheostomy Device, Open Approach (ICD-10-PCS; 2016-05-06)
PROC: B2141ZZ Fluoroscopy of Right Heart using Low Osmolar Contrast (ICD-10-PCS; 2016-05-15)
PROC: 02H633Z Insertion of Infusion Device into Right Atrium, Percutaneous Approach (ICD-10-PCS; 2016-05-15)
PROC: 30233K1 Transfusion of Nonautologous Frozen Plasma into Peripheral Vein, Percutaneous Approach (ICD-10-PCS; 2016-05-15)
PROC: 0DW6XUZ Revision of Feeding Device in Stomach, External Approach (ICD-10-PCS; 2016-05-16)
PROC: 02PAX3Z Removal of Infusion Device from Heart, External Approach (ICD-10-PCS; 2016-05-28)
DX: A41.9 Sepsis, unspecified organism (principal); R65.21 Severe sepsis with septic shock; K26.5 Chronic or unspecified duodenal ulcer with perforation; I47.2 Ventricular tachycardia; E43 Unspecified severe protein-calorie malnutrition; G93.40 Encephalopathy, unspecified; J90 Pleural effusion, not elsewhere classified; K65.2 Spontaneous bacterial peritonitis; J96.01 Acute respiratory failure with hypoxia; D68.8 Other specified coagulation defects; E87.2 Acidosis; N17.9 Acute kidney failure, unspecified; E87.1 Hypo-osmolality and hyponatremia; Z68.41 Body mass index [BMI] 40.0-44.9, adult; Z99.11 Dependence on respirator [ventilator] status; B37.0 Candidal stomatitis; A04.7 Enterocolitis due to Clostridium difficile; K70.11 Alcoholic hepatitis with ascites; F10.20 Alcohol dependence, uncomplicated; E87.5 Hyperkalemia; E78.5 Hyperlipidemia, unspecified; E66.01 Morbid (severe) obesity due to excess calories; K70.31 Alcoholic cirrhosis of liver with ascites; D64.9 Anemia, unspecified; E87.8 Other disorders of electrolyte and fluid balance, not elsewhere classified; E03.9 Hypothyroidism, unspecified; I10 Essential (primary) hypertension; K21.9 Gastro-esophageal reflux disease without esophagitis
CPT/HCPCS: 04007; 84133; 84300; 87070; 87075; CCU; 36415; 74000; 74176; 74177; 76775; 77001; 81001; 82436; 82570; 86920; 87040; 87071; 87086; 87088; 87147; 87389; 88304; 88307; 88313; 93005; 93010; 93306; 95816; 96374; 96375; 97001-GP; 97110-GO; 97116-GO; 97530-GO; 99232; 99233; 99291; C1725; C1769; G0479; G0480; J0131; J0360; J0690; J0696; J0713; J1170; J1630; J1644; J1815; J1940; J2060; J2185; J2405; J3010; J3370; J7040; J7060; J7608; P9016; P9047